=== PATIENT | male | born 1960 | race Caucasian/White ===

== ENCOUNTER 2016-08-30 23:34 | Inpatient (IN) | payer OTHER ==
[~2016-08-30] VITALS: Ht 177.8 cm; Wt 145.0 kg
[~2016-08-30 23:34] MED LIST: ASPI-664 PO; CALC-277 PO; CARV3.1260 PO; CHLO25CA9 PO; FER325 PO; FOLI-49 PO; FURO-110 PO; LOSA50TA6 PO; MULT-762 PO; POTA10TA97 PO; SPIR50TA PO; THIA100T10 PO
[2016-08-31] VITALS (12 sets, daily range): BP systolic 122–144; BP diastolic 61–90; PULSE 68–90; RESP 17–22; BMI 49.5
[2016-08-31] MEDS ORDERED: morphine 4 MG/ML VIAL IV PRN (01:00)
[2016-08-31] MEDS ORDERED: ATOR10TA65 PO (01:41)
[2016-08-31] MEDS ORDERED: METO100T13 PO (01:41)
[2016-08-31] MEDS ORDERED: ONDANSETRON 4 MG INJ IV PRN (02:00)
[2016-08-31] MEDS ORDERED: NACL 0.9% 3 ML SYG IV SCH (02:00)
[2016-08-31] MEDS ORDERED: ALBUTEROL/IPRATROPIUM (NEB) 3 ML AMP HHN PRN (02:00)
[2016-08-31] MEDS: FUROSEMIDE 20 MG TAB PO SCH ×2 (05:41→17:33)
--- NOTE | 2016-08-31 08:34 | HP ---
Date/Time of Note Date/Time of Note DATE: 08/31/16 TIME: 08:20 Assessment/Plan VTE Prophylaxis VTE Prophylaxis Intervention: other (Eliquis) Lines/Catheters IV Catheter Type (from Nrsg): Saline Lock Assessment/Plan Assessment/Plan IMPRESSION 1. Chest Pain: r/o ACS - Cont telemetry monitoring - trend trops - 2D-echo and 12-lead EKG - Will place a cardiology consult - ASA, beta-froilan with PRN nitro and morphine 2. Hx of Decompensated Alcoholic Liver Cirrhosis - cont diuretics 3. Back Pain s/p fall - will obtain xray of spines 4. Morbid Obesity with BMI of 49. - weight reduction advised 5. Alcohol abuse - last drink yesterday (6 beers) - monitor for withdrawal - Librium with PRN Ativan DVT ppx: cont home Eliquis HPI/ROS Admit Date/Time Admit Date/Time Aug 30, 2016 at 23:34 Hx of Present Illness This is a 56-year-old morbidly obese male with BMI of 54, with history of hypertension, decompensated alcoholic cirrhosis, anemia who was transferred from [facility] after he presented there with chest pain. pain is left sided, described as pressure-like with no associated N/V, SOB or diaphoresis. He said he has been taking eliquis for "blood clot in my heart" for the past 6 months. He also said he fell forward 2 days ago "because of my weight". he c/o back pain after the fall. Denied palpitations, lightheadedness. Denied hitting his head. PMH/Family/Social Past Surgical History Past Surgical Hx: no surgical history Social History Smoking Status: Never smoker Exam/Review of Systems Vital Signs Vitals Vital Signs Date Time Temp Pulse Resp B/P Pulse Ox O2 Delivery O2 Flow Rate FiO2 08/31/16 08:12 98.7 92 18 131/79 91 08/31/16 01:28 2.0 08/31/16 00:00 Room Air Intake and Output 08/30/16 08/30/16 08/31/16 15:00 23:00 07:00 Intake Total 200 ml Output Total 2700 ml Balance -2500 ml Exam Constitutional: alert, oriented, other (morbidly Obese) Head: atraumatic, normocephalic Eyes: EOMI, PERRL Respiratory: clear to auscultation, normal air movement Cardiovascular: nl pulses, regular rate and rhythm Gastrointestinal: non-tender, other, soft Extremities: normal pulses Medications Medications Current Medications Morphine Sulfate (morphine) 3 mg Q4H PRN IV PAIN; Start 08/31/16 at 01:00 Ondansetron HCl (Zofran Inj) 4 mg Q6H PRN IV NAUSEA AND/OR VOMITING; Start 02/06 at 02:00 Morphine Sulfate (morphine) 2 mg Q4H PRN IV PAIN LEVEL 7-10; Start 08/31/16 at 02:00 Heparin Sodium (Porcine) (Heparin (5000 Units/0.5 ml)) 5,000 unit Q12 SC ; Start 08/31/16 at 09:00 Aspirin (Halfprin) 81 mg DAILY PO ; Start 08/31/16 at 09:00 Atorvastatin Calcium (Lipitor) 10 mg QHS PO ; Start 08/31/16 at 21:00 Carvedilol (Coreg) 3.125 mg BID PO ; Start 08/31/16 at 09:00 Chlordiazepoxide (Librium) 25 mg TID PO ; Start 08/31/16 at 09:00 Ferrous Sulfate (Ferrous Sulfate (Ec)) 325 mg DAILY PO ; Start 08/31/16 at 09:00 Folic Acid (Folic Acid) 1 mg DAILY PO ; Start 08/31/16 at 09:00 Furosemide (Lasix) 20 mg BID@06,18 PO Last administered on 08/31/16t 05:41; Admin Dose 20 MG; Start 08/31/16 at 06:00 Losartan Potassium (Cozaar) 50 mg BID PO ; Start 08/31/16 at 09:00 Multivitamins Therapeutic (Theragran) 1 tab DAILY PO ; Start 08/31/16 at 09:00 Potassium Chloride (Klor-Con 10) 10 meq DAILY PO ; Start 08/31/16 at 09:00 Spironolactone (Aldactone) 50 mg DAILY PO ; Start 08/31/16 at 09:00 Thiamine HCl (Vitamin B1) 100 mg DAILY PO ; Start 08/31/16 at 09:00 HÉCTOR LOGAN MD Aug 31, 2016 08:32
[2016-08-31] MEDS: MULTIVITAMINS THERAPEUTIC TAB PO SCH (08:37)
[2016-08-31] MEDS: POTASSIUM CHLORIDE (SR) 10 MEQ TAB PO SCH (08:38)
[2016-08-31] MEDS: SPIRONOLACTONE 50 MG TAB PO SCH (08:38)
[2016-08-31] MEDS: LOSARTAN 50 MG TAB PO SCH ×2 (08:38→22:02)
[2016-08-31] MEDS: THIAMINE 100 MG TAB PO SCH (08:38)
[2016-08-31] MEDS: FOLIC ACID 1 MG TAB PO SCH (08:38)
[2016-08-31] MEDS: FERROUS SULFATE (EC) 325 MG TAB PO SCH (08:38)
[2016-08-31] MEDS: ASPIRIN (EC) 81 MG TAB PO SCH (08:38)
[2016-08-31] MEDS: HEPARIN 5,000 UNIT/0.5 ML VIAL SC SCH ×2 (08:39→22:03)
[2016-08-31] MEDS: CHLORDIAZEPOXIDE 25 MG CAP PO SCH ×3 (09:00→22:01)
[2016-08-31 10:08] LABS: ADD SCAN DIFF NO
[2016-08-31 10:12] LABS: ABNORMAL IP MESSAGE 1; BASOPHILS % 0.5 % (0.0-2.0); EOSINOPHILS # 0.1 10^3/ul (0.0-0.5); EOSINOPHILS % 1.5 % (0.0-7.0); HEMATOCRIT 37.8 % (42.0-52.0); HEMOGLOBIN 13.9 g/dl (14.0-18.0); LYMPHOCYTES # 0.6 10^3/ul (0.8-2.9); LYMPHOCYTES % 10.8 % (15.0-51.0); MEAN CORPUSCULAR HEMOGLOBIN 29.9 pg (29.0-33.0); MEAN CORPUSCULAR HGB CONC 36.8 g/dl (32.0-37.0); MEAN CORPUSCULAR VOLUME 81.3 fl (82.0-101.0); MEAN PLATELET VOLUME 9.7 fl (7.4-10.4); MONOCYTE # 0.5 10^3/ul (0.3-0.9); MONOCYTES % 9.7 % (0.0-11.0); NEUTROPHIL # 4.2 10^3/ul (1.6-7.5); NEUTROPHILS % 77.3 % (39.0-77.0); RED BLOOD COUNT 4.65 10^6/ul (4.70-6.10); RED CELL DISTRIBUTION WIDTH 13.2 % (11.5-14.5); WHITE BLOOD COUNT 5.5 10^3/ul (4.8-10.8)
[2016-08-31 10:37] LABS: ALBUMIN 4.6 g/dl (3.3-4.9); ALBUMIN/GLOBULIN RATIO 1.39; BILIRUBIN,INDIRECT 1.8 mg/dl (0-1.1); BILIRUBIN,TOTAL 1.8 mg/dl (0.2-1.3); CALCIUM 8.4 mg/dl (8.4-10.2); CREATININE 0.5 mg/dl (0.61-1.24); MAGNESIUM 1.1 mg/dl (1.7-2.5); POTASSIUM 3.2 mmol/L (3.5-5.1); TOTAL PROTEIN 7.9 g/dl (6.1-8.1)
[2016-08-31 10:48] LABS: TROPONIN-I 0.064 ng/ml (0.00-0.12)
[2016-08-31 10:52] LABS: CK-MB 10.4 ng/ml (0.0-2.4)
--- NOTE | 2016-08-31 11:38 | RADRPT ---
PROCEDURE: XR Chest. CLINICAL INDICATION: Evaluate for pleural effusion. TECHNIQUE: PA and Lateral views of the chest were obtained. COMPARISON: No. FINDINGS: The soft tissues are normal. There are degenerative osteophytes in the thoracic spine. The heart i s enlarged. The cardiomediastinal silhouette and hilar structures are normal. The pulmonary vascula ture is normal. There are vascular calcifications in the aortic arch. No acute infiltrate is identif ied. The costophrenic angles are of the field of view. No pleural effusion is not excluded in this setting. IMPRESSION: 1. Technically limited study has costophrenic angles are excluded from the field of view. A right a nd lateral left lateral decubitus view of the chest or ultrasound of the chest is recommended if a p leural effusion is to be excluded. 2. Cardiomegaly. 3. Atherosclerosis of the aortic arch. 4. Mild elevation of the right diaphragm. 5. Spondylosis of the thoracic spine. RPTAT:AAJJ Physician Tyler Date Time Electronically viewed and signed by Physician Tyler on 08/31/2016 11:38 CHINYERE/
[2016-08-31 11:40] LABS: PLATELET COUNT 67 10^3/UL (140-415)
[2016-08-31 11:41] LABS: PLATELET ESTIMATE PLT APPEAR DECREASED
--- NOTE | 2016-08-31 14:16 | RADRPT ---
Echocardiogram Report Patient Name: ABELARDO ATKINS Gender: Male Date: 1960 Study Date: 31-Aug-2016 Milk Runner: ULISES Location: [place] Height(Cm): 178 Weight(Kg): 157 BSA: 2.78 Ref. Physician: HÉCTOR LOGAN Quality: Technically Difficult Study Procedures: Transthoracic echocardiogram with complete 2D, M-Mode, and doppler examination. Indications: Chest Pain. Shortness of breath. 2D/M Mode Doppler Measurement Value Normal Ranges Measurement Value Normal Ranges LVIDd MM 6.7 cm AV Peak Rohan 1.6 m/sec LVIDs MM 3.3 cm AV Peak PG 10.3 mmHg LVPWd MM 1.1 cm LVOT Peak Rohan 0.9 m/sec IVSd MM 1.1 cm PV Peak Rohan 1.4 m/sec AoR Diam MM 3.9 cm PV Peak PG 7.0 mmHg ACS MM 2.4 cm LA Dimen 2D 5.7 2.3 - 4.0 cm Findings Left Ventricle: Normal left ventricular systolic function. Normal left ventricular wall thickness. Moderate enlargement of left ventricle cavity. Ejection fraction is visually estimated at 55 %. Tissue Doppler/Mitral Doppler indices are indeterminate in this study due to the presence of abnormal rhythm throughout. Right Ventricle: Normal right ventricular size. Normal right ventricular systolic function. Left Atrium: There is severe enlargement of left atrium appreciated best by LA volume indexed of 53 ml/m2. Right Atrium: There is mild enlargement of right atrium. Mitral Valve: Mild mitral valve regurgitation. Aortic Valve: No significant aortic stenosis or insufficiency. Normal trileaflet aortic valve structure. Tricuspid Valve: Normal appearance and function of the tricuspid valve with trace physiologic regurgitation. Pulmonic Valve: Normal pulmonic valve appearance. No evidence of pulmonic regurgitation. Pericardium: Normal pericardium with no significant pericardial effusion. Aorta: There is mild aortic root dilation. Ascending Aorta 4 cm. IVC: Normal size and normal respiratory collapse consistent with normal right atrial pressure. Pulmonary Artery: Normal pulmonary artery size. Conclusions 1.Normal left ventricular systolic function. Normal left ventricular wall thickness. Moderate enlargement of left ventricle cavity. Ejection fraction is visually estimated at 55 %. Tissue Doppler/Mitral Doppler indices are indeterminate in this study due to the presence of abnormal rhythm throughout. 2.There is severe enlargement of left atrium appreciated best by LA volume indexed of 53 ml/m2. 3.There is mild enlargement of right atrium. 4.Mild mitral valve regurgitation. 5.Normal appearance and function of the tricuspid valve with trace physiologic regurgitation. Electronically Signed By: Bernard Bernard 31-Aug-2016 14:16:01 0700 Patient Name: ABELARDO ATKINS Study Date: 31-Aug-2016 [id number]
[2016-08-31 16:45] LABS: TROPONIN-I 0.064 ng/ml (0.00-0.12)
[2016-08-31 16:51] LABS: CK-MB 9.6 ng/ml (0.0-2.4)
[2016-08-31] MEDS: ATORVASTATIN 10 MG TAB PO SCH (22:01)
[2016-09-01] VITALS (12 sets, daily range): BP systolic 104–155; BP diastolic 56–89; PULSE 90–111; RESP 17–20
[2016-09-01] MEDS: FUROSEMIDE 20 MG TAB PO SCH ×2 (05:25→18:12)
[2016-09-01 07:35] LABS: ADD SCAN DIFF NO
[2016-09-01 07:45] LABS: ABNORMAL IP MESSAGE 1; BASOPHILS % 0.4 % (0.0-2.0); EOSINOPHILS # 0.1 10^3/ul (0.0-0.5); EOSINOPHILS % 1.5 % (0.0-7.0); HEMOGLOBIN 14.2 g/dl (14.0-18.0); LYMPHOCYTES # 0.5 10^3/ul (0.8-2.9); LYMPHOCYTES % 11.1 % (15.0-51.0); MEAN CORPUSCULAR HEMOGLOBIN 29.6 pg (29.0-33.0); MEAN CORPUSCULAR HGB CONC 35.5 g/dl (32.0-37.0); MEAN CORPUSCULAR VOLUME 83.5 fl (82.0-101.0); MEAN PLATELET VOLUME 10.3 fl (7.4-10.4); MONOCYTE # 0.6 10^3/ul (0.3-0.9); MONOCYTES % 11.7 % (0.0-11.0); NEUTROPHIL # 3.6 10^3/ul (1.6-7.5); NEUTROPHILS % 75.1 % (39.0-77.0); RED BLOOD COUNT 4.79 10^6/ul (4.70-6.10); RED CELL DISTRIBUTION WIDTH 13.6 % (11.5-14.5); WHITE BLOOD COUNT 4.8 10^3/ul (4.8-10.8)
[2016-09-01 08:25] LABS: CREATININE 0.44 mg/dl (0.61-1.24); MAGNESIUM 1.3 mg/dl (1.7-2.5); PHOSPHORUS 2.8 mg/dl (2.5-4.9)
[2016-09-01 08:34] LABS: POTASSIUM 2.9 mmol/L (3.5-5.1)
[2016-09-01] MEDS ORDERED: POTASSIUM CHLORIDE 250 ML IVPB ONE ×2 (09:00→10:00)
[2016-09-01] MEDS ORDERED: POTASSIUM CHLORIDE (SR) 10 MEQ TAB PO ONE (09:00)
[2016-09-01] MEDS: POTASSIUM CHLORIDE (SR) 10 MEQ TAB PO SCH (09:07)
[2016-09-01] MEDS: SPIRONOLACTONE 50 MG TAB PO SCH (09:07)
[2016-09-01] MEDS: CHLORDIAZEPOXIDE 25 MG CAP PO SCH ×3 (09:07→20:53)
[2016-09-01] MEDS: MULTIVITAMINS THERAPEUTIC TAB PO SCH (09:07)
[2016-09-01] MEDS: ASPIRIN (EC) 81 MG TAB PO SCH (09:07)
[2016-09-01] MEDS: THIAMINE 100 MG TAB PO SCH (09:08)
[2016-09-01] MEDS: FERROUS SULFATE (EC) 325 MG TAB PO SCH (09:08)
[2016-09-01] MEDS: FOLIC ACID 1 MG TAB PO SCH (09:08)
[2016-09-01] MEDS: LOSARTAN 50 MG TAB PO SCH ×2 (09:08→20:53)
[2016-09-01] MEDS: HEPARIN 5,000 UNIT/0.5 ML VIAL SC SCH ×2 (09:14→20:58)
[2016-09-01 09:57] LABS: PLATELET COUNT 51 10^3/UL (140-415)
[2016-09-01 09:58] LABS: PLATELET ESTIMATE PLT APPEAR DECREASED
[2016-09-01] MEDS ORDERED: MAGNESIUM SULFATE 3 GM in SOD CHLORIDE 0.9% 100 ML IVPB ONE (11:00)
[2016-09-01 13:51] LABS: TROPONIN-I 0.062 ng/ml (0.00-0.12)
[2016-09-01 14:01] LABS: CK-MB 5.5 ng/ml (0.0-2.4)
[2016-09-01 14:19] LABS: CHOL/HDL RATIO 1.8 RATIO
--- NOTE | 2016-09-01 15:25 | RADRPT ---
PROCEDURE: XR Chest. CLINICAL INDICATION: Shortness of breath. Evaluate for infiltrates. TECHNIQUE: Chest x-ray, single view. COMPARISON: 08/31/2016. FINDINGS: The cardiac silhouette is magnified and unchanged in size and configuration. Aortic arch atheroscle rotic calcification is observed. Low lung volumes are present. Pulmonary parenchymal evaluation is slightly limited as a result of attenuation from abundant overlapping soft tissue. There is no evid ence of dominant focal pulmonary parenchymal opacification. Skeletal structures and upper abdomen ar e unremarkable. IMPRESSION: Hypoinflation. No evidence of dominant focal pulmonary parenchymal opacification. RPTAT: HLST .Alessandra Palacio MD, MD Date Time Electronically viewed and signed by .Alessandra Palacio MD, MD on 09/01/2016 15:24 .T/
[2016-09-01] MEDS: METHYLPREDNISOLONE 125 MG INJ IV SCH ×2 (16:11→20:52)
--- NOTE | 2016-09-01 16:41 | PN ---
DATE: 09/01/2016 TIME OF EVALUATION: 1:30 p.m. SUBJECTIVE DATA: Denies any chest pain. Complains of dyspnea. OBJECTIVE DATA: VITAL SIGNS: Temperature 98.1, pulse rate 100, respiratory rate 20, blood pressure 104/56, oxygen saturation 98% on low flow O2. GENERAL: This is a morbidly obese male patient lying in bed in mild respiratory distress. HEENT: Head normocephalic and atraumatic. Eyes: Anicteric sclerae. Conjunctivae clear. ENT: Nasal septum is midline. Oral mucosa is dry. NECK: Short with increased neck circumference. RESPIRATORY: Bilaterally diminished breath sounds. Use of accessory muscles of respiration. Bilateral expiratory wheezing. CARDIAC: Irregularly irregular rhythm. S1 and S2 heard. ABDOMEN: Obese. Bowel sounds hypoactive. GENITOURINARY: Deferred. EXTREMITIES: No cyanosis, no clubbing. Bilateral lower extremity 2+ pitting edema. Peripheral pulses are palpable. NEUROLOGIC: The patient is awake, alert and oriented. Cranial nerves are grossly intact. LABORATORY AND DIAGNOSTIC DATA: WBC 4.8, hemoglobin 14.0, hematocrit 40.0, platelet count 51. Sodium 124, potassium 2.9, chloride 104, carbon dioxide 38, anion gap 15, BUN 7, creatinine 0.44, glucose 105, calcium 9.0, phosphorus 2.8, magnesium 1.3. ASSESSMENT AND PLAN: 1. Chest pain. Rule out acute coronary syndrome. Troponins negative so far. The patient's 2D echocardiogram showing ejection fraction of 55%. The patient will be continued on aspirin. Cardiology to follow the patient. 2. Essential hypertension. Continue antihypertensives. Blood pressure fairly well controlled. 3. Chronic obstructive pulmonary disease. The patient was started on inhaled bronchodilators and tapering dose of steroids. Pulmonology consult will be obtained. 4. Acute respiratory failure, most probably a combination of diastolic heart failure as well as underlying chronic obstructive pulmonary disease exacerbation. The patient will be continued on supplemental oxygen. The patient will be started on inhaled bronchodilators. However, Xopenex will be used because of underlying atrial fibrillation. The patient was started on a tapering dose of steroids. 5. Atrial fibrillation. Rate controlled. Unable to anticoagulate because of underlying thrombocytopenia. 6. Alcoholic liver disease. Continue diuretics. Will obtain a serum ammonia level. 7. Thrombocytopenia. Most probably from acute alcoholic liver disease. Monitor for any bleeding. 8. Hyponatremia. The patient's sodium will be increased gradually. 9. Hypokalemia. The patient's potassium will be repleted. The patient's magnesium will also be repleted. 10. Alcohol abuse. The patient's last drink was on the day prior to hospitalization. The patient will be maintained on a daily thiamine. The patient will also be maintained on a tapering dose of Librium. 11. Fluid, electrolytes and nutrition. Low cholesterol diet. 12. Deep venous thrombosis prophylaxis. Subcutaneous heparin. 13. Gastrointestinal prophylaxis. H2 receptor blockers. PLAN: Continue inpatient monitoring. Await cardiology evaluation. We will also start the patient on a tapering dose of steroids. We will replete potassium and magnesium. Case discussed with Dr. Tafoya. TRUDY TAFOYA MD, AM/MATT Conf#: [id number] DID#: [id number] MTDD
[2016-09-01] MEDS ORDERED: MAGNESIUM SULFATE 2 GM/50 ML 50 ML IVPB ONE (17:00)
[2016-09-01] MEDS ORDERED: POTASSIUM CHLORIDE (SR) 20 MEQ TAB PO ONE (20:00)
[2016-09-01] MEDS: ATORVASTATIN 10 MG TAB PO SCH (20:51)
[2016-09-01] MEDS: FAMOTIDINE 20 MG TAB PO SCH (20:53)
[2016-09-01] MEDS: LEVALBUTEROL (NEB) 0.63 MG/3 ML AMP HHN SCH (21:12)
[2016-09-02] VITALS (12 sets, daily range): BP systolic 101–150; BP diastolic 55–95; PULSE 84–106; RESP 18–20
[2016-09-02] MEDS: LEVALBUTEROL (NEB) 0.63 MG/3 ML AMP HHN SCH ×4 (00:47→20:43)
[2016-09-02] MEDS: FUROSEMIDE 20 MG TAB PO SCH ×2 (05:32→17:26)
--- NOTE | 2016-09-02 06:59 | CONS ---
DATE OF ADMISSION: 08/30/2016 DATE OF CONSULTATION: 09/01/2016 REASON FOR CONSULTATION: Chest pain. CHIEF COMPLAINT: Chest pain. HISTORY OF PRESENT ILLNESS: Thank you for this referral. History obtained from the patient, panda cool with the staff and review of the chart. This is a pleasant 56-year-old gentleman with morbid o besity, hypertension, alcoholic liver cirrhosis, anemia, as well as atrial fibrillation who came to emergency room with above complaint. The patient is a poor historian, said that he has had chest pa in, left-sided, focal area on the left side. It comes when he takes a deep breath. The patient said he has had chest pain like this before. He was seen by risk analyst, Dr. Evans, had a stress test d one, it was unremarkable. Patient continues with atrial fibrillation. Heart rate overall has been stable. MEDICATIONS: Reviewed. PAST MEDICAL HISTORY: As above. SOCIAL HISTORY: The patient apparently drinks every day almost. Denies any drug abuse to me. FAMILY HISTORY: No reported coronary artery disease. REVIEW OF SYSTEMS: As above mentioned, also severe lower extremity edema for a long time. PHYSICAL EXAMINATION: VITAL SIGNS: Temperature 98.7, heart rate of 90, blood pressure 144/85, respiration rate of 20. HEENT: Normocephalic, atraumatic. Obese gentleman. Pupils are equal. CARDIOVASCULAR: Irregularly irregular. Systolic murmur. PULMONARY: With no wheezes heard. GASTROINTESTINAL: Obese, soft, nontender. EXTREMITIES: Positive diffuse lower extremity edema. NEUROLOGIC: Awake, alert. PSYCHIATRIC: Appeared to be calm. LABORATORY: Sodium 124, potassium 2.9, BUN of 7, creatinine 0.44, glucose of 105. Troponins have b een negative x3. Cholesterol is 163, LDL of 65. WBC of 8.5, hemoglobin 14.2, platelets of 61. EKG : Atrial fibrillation. Echocardiogram read by Dr. Bernard shows ejection fraction 55%, severe dila oriana left atrium. ASSESSMENT AND PLAN: 1. Chest pain, appeared to be nonanginal. 2. Alcoholic liver disease. 3. Hypertension. 4. Atrial fibrillation. 5. History of alcohol use. 6. History of falls. 7. Severe thrombocytopenia. 8. Electrolyte abnormality. 9. Hypomagnesemia. 10. Hypokalemia. RECOMMENDATIONS: 1. I will continue with the Losartan and Coreg. 2. Potassium and magnesium will be replaced. We will try to get old records from Dr. Evans's offic e including his stress test result. The patient, although in atrial fibrillation and has dilated le ft atrium does not appear to be a good candidate for anticoagulation due to concern about his thromb ocytopenia and more concerning about his fall risk. He said that he fell 2 weeks ago. For now, we will continue to monitor on telemetry. Thank you for this referral. Dictated By: TAL ABREU MD AV/NTS Conf#: [id number] DID#: [id number] CC: TRUDY HILTON REAL ESTATE ASSOCIATE ATTORNEY; HÉCTOR LOGAN MD;*[facility]*
--- NOTE | 2016-09-02 07:07 | PN ---
Date/Time of Note Date/Time of Note DATE: 09/02/16 TIME: 07:07 Assessment/Plan VTE Prophylaxis VTE Prophylaxis Intervention: heparin Lines/Catheters IV Catheter Type (from Rust): Saline Lock Assessment/Plan Chief Complaint/Hosp Course 1. Chest pain. Acute coronary syndrome ruled out. Troponins negative so far. The patient's 2D echocardiogram showing ejection fraction of 55%. The patient will be continued on aspirin. Cardiology following the patient. 2. Essential hypertension. Continue antihypertensives. Blood pressure fairly well controlled. 3. Chronic obstructive pulmonary disease. The patient was started on inhaled bronchodilators and tapering dose of steroids. Pulmonology consult will be obtained. 4. Acute respiratory failure. Acute on chronic. Hypoxic and hypercapnic. Most probably a combination of diastolic heart failure as well as underlying chronic obstructive pulmonary disease exacerbation. The patient will be continued on supplemental oxygen and inhaled bronchodilators. However, Xopenex will be used because of underlying atrial fibrillation. The patient was started on a tapering dose of steroids. 5. Atrial fibrillation. Rate controlled. Unable to anticoagulate because of underlying thrombocytopenia. 6. Alcoholic liver disease. Continue diuretics. The patient will also be started on lactulose because of underlying hyperammonemia. 7. Thrombocytopenia. Most probably from acute alcoholic liver disease. Monitor for any bleeding. 8. Hyponatremia. The patient's sodium will be increased gradually. 9. Alcohol abuse. The patient's last drink was on the day prior to hospitalization. The patient will be maintained on a daily thiamine. The patient will also be maintained on a tapering dose of Librium. 10. Fluid, electrolytes and nutrition. Low cholesterol diet. 11. Deep venous thrombosis prophylaxis. Subcutaneous heparin. Will hold this if there is worsening thrombocytopenia. 12. Gastrointestinal prophylaxis. H2 receptor blockers. PLAN: Continue inpatient monitoring. Replete potassium. Start lactulose because of hyperammonemia. Case discussed with Dr. Tafoya. Problems: Subjective 24 Hr Interval Summary Free Text/Dictation Denies any chest pain. Improving dyspnea. Exam/Review of Systems Vital Signs Vitals Vital Signs Date Time Temp Pulse Resp B/P Pulse Ox O2 Delivery O2 Flow Rate FiO2 09/02/16 04:11 103 09/02/16 04:00 98.8 19 106/60 94 09/02/16 02:36 2.0 09/02/16 00:49 Nasal Cannula Intake and Output 09/01/16 09/01/16 09/02/16 15:00 23:00 07:00 Intake Total 250 ml 850 ml 1200 ml Output Total 2350 ml Balance 250 ml 850 ml -1150 ml Exam GENERAL: This is a morbidly obese male patient lying in bed in mild respiratory distress. HEENT: Head normocephalic and atraumatic. Eyes: Anicteric sclerae. Conjunctivae clear. ENT: Nasal septum is midline. Oral mucosa is dry. NECK: Short with increased neck circumference. RESPIRATORY: Bilaterally diminished breath sounds. No use of accessory muscles of respiration. No expiratory wheezing. CARDIAC: Irregularly irregular rhythm. S1 and S2 heard. ABDOMEN: Obese. Bowel sounds hypoactive. GENITOURINARY: Deferred. EXTREMITIES: No cyanosis, no clubbing. Bilateral lower extremity 2+ pitting edema. Peripheral pulses are palpable. NEUROLOGIC: The patient is awake, alert and oriented. Cranial nerves are grossly intact. Results Result Diagram: 09/01/16 0654 09/01/16 0654 Results 24 hrs Laboratory Tests Test 09/01/16 13:05 09/01/16 13:34 09/01/16 13:55 Creatine Kinase 335 #H Creatine Kinase Index 1.6 Creatinine Kinase MB (Mass) 5.50 H Troponin I 0.062 Hemoglobin A1c 5.4 Triglycerides Level 51 Cholesterol Level 163 LDL Cholesterol, Calculated 65 HDL Cholesterol 88 H Cholesterol/HDL Ratio 1.8 Medications Medications Current Medications Morphine Sulfate (morphine) 3 mg Q4H PRN IV PAIN; Start 08/31/16 at 01:00 Ondansetron HCl (Zofran Inj) 4 mg Q6H PRN IV NAUSEA AND/OR VOMITING; Start 02/06 at 02:00 Morphine Sulfate (morphine) 2 mg Q4H PRN IV PAIN LEVEL 7-10; Start 08/31/16 at 02:00 Heparin Sodium (Porcine) (Heparin (5000 Units/0.5 ml)) 5,000 unit Q12 SC Last administered on 09/01/16 20:58; Admin Dose 5,000 UNIT; Start 08/31/16 at 09:00 Aspirin (Halfprin) 81 mg DAILY PO Last administered on 09/01/16 09:07; Admin Dose 81 MG; Start 08/31/16 at 09:00 Atorvastatin Calcium (Lipitor) 10 mg QHS PO Last administered on 09/01/16 20: 51; Admin Dose 10 MG; Start 08/31/16 at 21:00 Carvedilol (Coreg) 3.125 mg BID PO Last administered on 09/01/16 20:53; Admin Dose 3.125 MG; Start 08/31/16 at 09:00 Chlordiazepoxide (Librium) 25 mg TID PO Last administered on 09/01/16 20:53; Admin Dose 25 MG; Start 08/31/16 at 09:00 Ferrous Sulfate (Ferrous Sulfate (Ec)) 325 mg DAILY PO Last administered on 09:08; Admin Dose 325 MG; Start 08/31/16 at 09:00 Folic Acid (Folic Acid) 1 mg DAILY PO Last administered on 09/01/16 09:08; Admin Dose 1 MG; Start 08/31/16 at 09:00 Furosemide (Lasix) 20 mg BID@ PO Last administered on 09/02/16 05:32; Admin Dose 20 MG; Start 08/31/16 at 06:00 Losartan Potassium (Cozaar) 50 mg BID PO Last administered on 09/01/16 20:53; Admin Dose 50 MG; Start 08/31/16 at 09:00 Multivitamins Therapeutic (Theragran) 1 tab DAILY PO Last administered on 09:07; Admin Dose 1 TAB; Start 08/31/16 at 09:00 Potassium Chloride (Klor-Con 10) 10 meq DAILY PO Last administered on 09:07; Admin Dose 10 MEQ; Start 08/31/16 at 09:00 Spironolactone (Aldactone) 50 mg DAILY PO Last administered on 09/01/16 09:07 ; Admin Dose 50 MG; Start 08/31/16 at 09:00 Thiamine HCl (Vitamin B1) 100 mg DAILY PO Last administered on 09/01/16 09:08 ; Admin Dose 100 MG; Start 08/31/16 at 09:00 Methylprednisolone Sodium Succinate (Solu-Medrol) 60 mg Q12 IV Last administered on 09/01/16 20:52; Admin Dose 60 MG; Start 09/01/16 at 16:00 Famotidine (Pepcid) 20 mg BID PO Last administered on 09/01/16 20:53; Admin Dose 20 MG; Start 09/01/16 at 21:00 TRUDY HILTON NP Sep 02, 2016 07:07
[2016-09-02 08:03] LABS: ADD SCAN DIFF NO
[2016-09-02 08:14] LABS: AADO2 Arterial 31.3 mmHg (7.0-24.0); Arterial Base Excess 7.8 mmol/L (-3.0-3); Arterial COHb 1.4 % (0.0-3.0); Arterial Fraction of Oxyhgb 91.3 % (93.0-99.0); Arterial HCO3 37.5 mmol/L (22.0-26.0); Arterial MetHb 0.3 % (0.0-1.5); Arterial Total Hemglobin 16.1 g/dl (12.0-18.0); MODE NASAL CANNULA
[2016-09-02 08:14] LABS: HEMATOCRIT 42.6 % (42.0-52.0); HEMOGLOBIN 15.1 g/dl (14.0-18.0); MEAN CORPUSCULAR HEMOGLOBIN 29.9 pg (29.0-33.0); MEAN CORPUSCULAR HGB CONC 35.4 g/dl (32.0-37.0); MEAN CORPUSCULAR VOLUME 84.4 fl (82.0-101.0); MEAN PLATELET VOLUME 10.1 fl (7.4-10.4); NEUTROPHILS % 92.8 % (39.0-77.0); RED BLOOD COUNT 5.05 10^6/ul (4.70-6.10); RED CELL DISTRIBUTION WIDTH 13.6 % (11.5-14.5); WHITE BLOOD COUNT 6.2 10^3/ul (4.8-10.8)
[2016-09-02 08:15] LABS: ABNORMAL IP MESSAGE 1; LYMPHOCYTES # 0.3 10^3/ul (0.8-2.9); LYMPHOCYTES % 5.4 % (15.0-51.0); MONOCYTE # 0.1 10^3/ul (0.3-0.9); MONOCYTES % 1.5 % (0.0-11.0); NEUTROPHIL # 5.7 10^3/ul (1.6-7.5)
[2016-09-02] MEDS: CHLORDIAZEPOXIDE 25 MG CAP PO SCH ×3 (08:26→20:39)
[2016-09-02] MEDS: METHYLPREDNISOLONE 125 MG INJ IV SCH (08:26)
[2016-09-02] MEDS: LOSARTAN 50 MG TAB PO SCH ×2 (08:27→20:40)
[2016-09-02] MEDS: MULTIVITAMINS THERAPEUTIC TAB PO SCH (08:27)
[2016-09-02] MEDS: ASPIRIN (EC) 81 MG TAB PO SCH (08:27)
[2016-09-02] MEDS: POTASSIUM CHLORIDE (SR) 10 MEQ TAB PO SCH (08:27)
[2016-09-02] MEDS: FAMOTIDINE 20 MG TAB PO SCH ×2 (08:27→20:39)
[2016-09-02] MEDS: THIAMINE 100 MG TAB PO SCH (08:27)
[2016-09-02] MEDS: FERROUS SULFATE (EC) 325 MG TAB PO SCH (08:27)
[2016-09-02] MEDS: SPIRONOLACTONE 50 MG TAB PO SCH (08:28)
[2016-09-02] MEDS: FOLIC ACID 1 MG TAB PO SCH (08:28)
[2016-09-02 08:33] LABS: PLATELET COUNT 68 10^3/UL (140-415)
[2016-09-02 08:34] LABS: INR 1.16; PROTIME 14.8 Sec (12.2-14.2); PT RATIO 1.2
[2016-09-02 08:35] LABS: PARTIAL THROMBOPLASTIN TIME 28.6 Sec (25.0-35.0)
[2016-09-02] MEDS: HEPARIN 5,000 UNIT/0.5 ML VIAL SC SCH ×2 (08:37→20:44)
[2016-09-02 08:43] LABS: ALBUMIN 4.6 g/dl (3.3-4.9); ALBUMIN/GLOBULIN RATIO 1.21; BILIRUBIN,INDIRECT 1.1 mg/dl (0-1.1); BILIRUBIN,TOTAL 1.1 mg/dl (0.2-1.3); CALCIUM 9.5 mg/dl (8.4-10.2); CREATININE 0.48 mg/dl (0.61-1.24); POTASSIUM 3.3 mmol/L (3.5-5.1); TOTAL PROTEIN 8.4 g/dl (6.1-8.1)
[2016-09-02 09:07] LABS: MAGNESIUM 1.8 mg/dl (1.7-2.5); PHOSPHORUS 4.3 mg/dl (2.5-4.9); TROPONIN-I 0.074 ng/ml (0.00-0.12)
[2016-09-02] MEDS ORDERED: POTASSIUM CHLORIDE (SR) 20 MEQ TAB PO STA (09:57)
--- NOTE | 2016-09-02 12:23 | CONS ---
DATE OF ADMISSION: 08/30/2016 DATE OF CONSULTATION: 09/02/2016 REASON FOR CONSULTATION: Shortness of breath. HISTORY OF PRESENT ILLNESS: This is a moderately obese 56-year-old gentleman originally ad mitted on 08/31/2016 with increasing shortness of breath, orthopnea, PND, recent history of decompen sation of underlying cirrhosis. In addition, he had what seemed like a mechanical fall. Yesterday, he had increasing chest discomfort, mild shortness of breath, but currently denies any fever or chi lls. No chest pain or palpitations. PAST MEDICAL HISTORY: Morbid obesity, underlying cirrhosis, history of anticoagulation for atrial f ibrillation, history of alcoholic liver disease, thrombocytopenia. MEDICATIONS: Per chart. ALLERGIES: NONE. SOCIAL HISTORY: Ex-smoker, no alcohol, no history of drug use. FAMILY HISTORY: Noncontributory. SYSTEMS REVIEW: A 12-point review of systems was negative other than that mentioned above. PHYSICAL EXAMINATION: GENERAL: Chronically ill appearing, morbidly obese gentleman, comfortable at rest, no acute distres s. VITAL SIGNS: Currently afebrile, pulse is 110, blood pressure 135/95, O2 saturation 96% on 2 L nasa l cannula. NECK: Supple. No JVD or lymphadenopathy. CARDIAC: S1, S2, no added sounds or murmurs. CHEST: Diminished air entry bilaterally. ABDOMEN: Soft, nontender. No guarding or rebound. EXTREMITIES: No cyanosis, clubbing. He has edema +2 with venous stasis. NEUROLOGIC: Generalized weakness. LABORATORY DATA: ABG: pH 7.31, pCO2 of 75, PaO2 of 72, hemoglobin of 15.1, white count 6.2. Sodiu m 128, potassium 3.3. IMPRESSION: 1. Chronic obstructive pulmonary disease with recent exacerbation. 2. History of cirrhosis. 3. Morbid obesity. 4. Compensated chronic hypercapnia. 5. Hyponatremia. PLAN: 1. Decrease steroids. 2. Continue bronchodilators. 3. Encourage ambulation. 4. Monitor sodium. When it is stable, the patient can likely be discharged home. Dictated By: YANET DINERO/MATT Conf#: [id number] DID#: [id number]
[2016-09-02] MEDS: LACTULOSE 30ML CUP PO SCH ×2 (13:43→20:38)
[2016-09-02] MEDS ORDERED: MAGNESIUM SULFATE 2 GM/50 ML 50 ML IVPB ONE (18:00)
--- NOTE | 2016-09-02 18:30 | PN ---
DATE: 09/02/2016 CARDIOLOGY FOLLOWUP SUBJECTIVE: Discussed with the staff. Rhythm strip was reviewed. Remains in atrial fibrillation. Heart rate remains stable. Denies any bleeding to me. Complains of cough and complains of bilater al "rib pain from coughing." No bleeding. MEDICATIONS: Reviewed. PHYSICAL EXAMINATION: VITAL SIGNS: Temperature 98, heart rate of 91, blood pressure 101/55, respiration rate 18, saturati ng 91% HEENT: Normocephalic, atraumatic. Obese gentleman in no acute distress. CARDIOVASCULAR: Irregularly irregular. PULMONARY: With no wheezes, mild rhonchi. GASTROINTESTINAL: Obese, soft, nontender. EXTREMITIES: Diffuse lower extremity edema. NEUROLOGIC: Awake and alert. PSYCHIATRIC: Appeared to be calm. LABORATORY: Sodium 128, potassium 3.3, BUN of 7, creatinine 0.48, glucose 149. ASSESSMENT AND PLAN: 1. Nonanginal chest pain. Review of the old stress test done by Dr. Evans, no evidence of ischemi a was seen about a year ago. 2. Alcoholic liver disease. 3. Atrial fibrillation appeared to be chronic. 4. Thrombocytopenia. 5. History of falls in the past. 6. Electrolyte abnormality and hyperkalemia and hypermagnesemia. 7. Chronic obstructive pulmonary disease. RECOMMENDATIONS: Heart rate has remained stable on Coreg. We will continue with the electrolytes i ncluding potassium to be replaced. Magnesium has been replaced. I will give a regular dose of magn esium as well. Follow up with pulmonary recommendations. Not fully anticoagulated due to concern a bout the fall and anemia, alcohol use and thrombocytopenia. Dictated By: TAL VALENTINO/MATT Conf#: [id number] DID#: [id number] CC: TRUDY HILTON AMMONIA STILL OPERATOR;*[facility]*
[2016-09-02] MEDS: ATORVASTATIN 10 MG TAB PO SCH (20:39)
[2016-09-02] MEDS ORDERED: METHYLPREDNISOLONE 40 MG INJ IV SCH (21:00)
[2016-09-03] VITALS (12 sets, daily range): BP systolic 88–139; BP diastolic 47–78; PULSE 81–96; RESP 17–19
[2016-09-03] MEDS: LEVALBUTEROL (NEB) 0.63 MG/3 ML AMP HHN SCH ×4 (01:23→19:45)
[2016-09-03] MEDS: LACTULOSE 30ML CUP PO SCH ×3 (05:53→21:22)
[2016-09-03] MEDS: FUROSEMIDE 20 MG TAB PO SCH ×2 (05:53→17:27)
[2016-09-03 08:13] LABS: ADD SCAN DIFF NO
[2016-09-03] MEDS: SPIRONOLACTONE 50 MG TAB PO SCH (08:19)
[2016-09-03] MEDS: POTASSIUM CHLORIDE (SR) 10 MEQ TAB PO SCH (08:19)
[2016-09-03] MEDS: CHLORDIAZEPOXIDE 25 MG CAP PO SCH ×3 (08:20→21:22)
[2016-09-03] MEDS: MULTIVITAMINS THERAPEUTIC TAB PO SCH (08:20)
[2016-09-03] MEDS: THIAMINE 100 MG TAB PO SCH (08:20)
[2016-09-03] MEDS: ASPIRIN (EC) 81 MG TAB PO SCH (08:20)
[2016-09-03] MEDS: FAMOTIDINE 20 MG TAB PO SCH ×2 (08:20→21:22)
[2016-09-03] MEDS: FOLIC ACID 1 MG TAB PO SCH (08:20)
[2016-09-03] MEDS: LOSARTAN 50 MG TAB PO SCH ×2 (08:20→20:30)
[2016-09-03] MEDS: FERROUS SULFATE (EC) 325 MG TAB PO SCH (08:20)
[2016-09-03] MEDS: HEPARIN 5,000 UNIT/0.5 ML VIAL SC SCH ×2 (08:22→21:26)
[2016-09-03 08:34] LABS: ABNORMAL IP MESSAGE 1; BASOPHILS % 0.1 % (0.0-2.0); EOSINOPHILS % 0.1 % (0.0-7.0); HEMATOCRIT 43.8 % (42.0-52.0); HEMOGLOBIN 15.2 g/dl (14.0-18.0); LYMPHOCYTES # 0.9 10^3/ul (0.8-2.9); LYMPHOCYTES % 6.2 % (15.0-51.0); MEAN CORPUSCULAR HGB CONC 34.7 g/dl (32.0-37.0); MEAN CORPUSCULAR VOLUME 86.4 fl (82.0-101.0); MONOCYTE # 1.2 10^3/ul (0.3-0.9); MONOCYTES % 8.7 % (0.0-11.0); NEUTROPHIL # 11.7 10^3/ul (1.6-7.5); NEUTROPHILS % 84.3 % (39.0-77.0); PLATELET COUNT 96 10^3/UL (140-415); RED BLOOD COUNT 5.07 10^6/ul (4.70-6.10); RED CELL DISTRIBUTION WIDTH 14.2 % (11.5-14.5); WHITE BLOOD COUNT 13.9 10^3/ul (4.8-10.8)
[2016-09-03 08:59] LABS: MAGNESIUM 1.8 mg/dl (1.7-2.5); PHOSPHORUS 4.7 mg/dl (2.5-4.9)
[2016-09-03 09:01] LABS: CALCIUM 9.9 mg/dl (8.4-10.2); CREATININE 0.52 mg/dl (0.61-1.24); POTASSIUM 3.8 mmol/L (3.5-5.1)
[2016-09-03] MEDS ORDERED: DIGOXIN 500 MCG INJ IV ONE (09:30)
--- NOTE | 2016-09-03 10:15 | PN ---
DATE: 09/03/2016 CARDIOLOGY FOLLOWUP SUBJECTIVE: Discussed with the staff. Rhythm strip was reviewed. The patient remains in atrial f ibrillation. Heart rate overall has been stable, but intermittently elevated. No chest pain or pre ssure any more. Still complains of cough and shortness of breath. MEDICATIONS: Reviewed. PHYSICAL EXAMINATION: VITAL SIGNS: Temperature 98, heart rate of 96, blood pressure 125/78, respiratory rate of 19. HEENT: Normocephalic, atraumatic. Morbidly obese gentleman. CARDIOVASCULAR: Irregularly irregular, systolic murmur. PULMONARY: Mild wheezes. GASTROINTESTINAL: Soft, nontender. Obese. EXTREMITIES: Positive lower extremity edema. NEUROLOGIC: Awake, responds appropriately. PSYCHIATRIC: Appears to be calm now. LABORATORY DATA: WBC of 13.9, hemoglobin 15.2, platelets of 96. Sodium 131, potassium 3.8, BUN of 12, creatinine 0.52, glucose 121. Ammonia level is 116. ASSESSMENT AND PLAN: 1. Nonanginal chest pain has resolved now. 2. Hypertension, under good control. 3. Chronic obstructive pulmonary disease. Follow up with Dr. Boo's recommendations. 4. Atrial fibrillation, heart rate controlled. Not anticoagulated due to concern about the fall ri sk, alcohol use and thrombocytopenia. 5. Alcoholic liver disease. 6. Thrombocytopenia. 7. Hyponatremia. 8. Morbid obesity. RECOMMENDATIONS: We will continue with the current cardiac care. I will give a dose of digoxin as well to control the heart rate slightly better. Continue respiratory care. Dictated By: TAL ABREU MD AV/MATT Conf#: [id number] DID#: [id number] CC: YANET BOO MD;*End*
--- NOTE | 2016-09-03 13:03 | PN ---
Date/Time of Note Date/Time of Note DATE: 09/03/16 TIME: 12:59 Assessment/Plan VTE Prophylaxis VTE Prophylaxis Intervention: SCD's Lines/Catheters IV [facility] Saline Lock Assessment/Plan Chief Complaint/Hosp Course Assessment and plan 1. Chest pain. Troponins negative. EF seen on echo at 55%. Continue on ASA. Cardiology follow. 2. Essential hypertension. Continue antihypertensives and adjust as needed 3. History of COPD. Still with some shortness of breath. No obvious wheezing at this time. Director Supplier Quality following. Continue on steroid. Continue bronchodilators. 4. Acute respiratory failure. Likely mixed COPD/CHF. On broncho-dilators. Continue with steroid. Await for clinical improvement 5. Atrial fibrillation. Noted with thrombocytopenia likely secondary to history of alcohol liver disease. Monitor for signs and symptoms of bleed 6. Alcoholic liver disease. Continue on lactulose. Monitor neuro status 7. Hyponatremia. Monitor level. Slowly improving 8. Alcohol abuse. Cessation was advised DVT prophylaxis: Early ambulation SCDs Disposition plan: Noted with unsteady gait. Will get physical therapy to follow. Monitor electrolytes. Hyponatremia slowly improving. Taper off of oxygen. Discharged in medically stable and cleared by consultants Discussed plan of care with Dr. Hoffmann Problems: Subjective 24 Hr Interval Summary Free Text/Dictation Does not report any chest pain at this time. Does have shortness of breath. Seen standing. With unsteady gait Exam/Review of Systems Vital Signs Vitals Vital Signs Date Time Temp Pulse Resp B/P Pulse Ox O2 Delivery O2 Flow Rate FiO2 09/03/16 12:18 96 09/03/16 11:55 98.0 19 91/53 90 09/03/16 08:00 Nasal Cannula 09/03/16 07:26 2.0 Intake and Output 09/02/16 09/02/16 09/03/16 14:59 22:59 06:59 Intake Total 1250 ml 1400 ml Output Total 800 ml 1800 ml Balance 450 ml -400 ml Exam Constitutional: alert, oriented Psych: nl mood/affect Head: normocephalic Respiratory: other (minimally diminished at lung baes) Cardiovascular: other (regular rate) Gastrointestinal: soft Musculoskeletal: No nl gait and stance Extremities: edema (ble) Neurological: nl mental status, nl speech Results Result Diagram: 09/03/16 0727 09/03/16 0722 Results 24 hrs Laboratory Tests Test 09/03/16 07:22 09/03/16 07:27 Sodium Level 131 L Potassium Level 3.8 Chloride Level 83 L Carbon Dioxide Level 39 H Anion Gap 13 Blood Urea Nitrogen 12 Creatinine 0.52 L Glucose Level 121 Calcium Level 9.9 Phosphorus Level 4.7 Magnesium Level 1.8 White Blood Count 13.9 #H Red Blood Count 5.07 Hemoglobin 15.2 Hematocrit 43.8 Mean Corpuscular Volume 86.4 Mean Corpuscular Hemoglobin 30.0 Mean Corpuscular Hemoglobin Concent 34.7 Red Cell Distribution Width 14.2 Platelet Count 96 #L Mean Platelet Volume 10.0 Neutrophils % 84.3 H Lymphocytes % 6.2 L Monocytes % 8.7 Eosinophils % 0.1 Basophils % 0.1 Nucleated Red Blood Cells % 0.0 Neutrophils # 11.7 H Lymphocytes # 0.9 Monocytes # 1.2 H Eosinophils # 0.0 Basophils # 0.0 Nucleated Red Blood Cells # 0.0 Ammonia 116 H Medications Medications Current Medications Morphine Sulfate (morphine) 3 mg Q4H PRN IV PAIN; Start 08/31/16 at 01:00 Ondansetron HCl (Zofran Inj) 4 mg Q6H PRN IV NAUSEA AND/OR VOMITING; Start 02/06 at 02:00 Morphine Sulfate (morphine) 2 mg Q4H PRN IV PAIN LEVEL 7-10; Start 08/31/16 at 02:00 Heparin Sodium (Porcine) (Heparin (5000 Units/0.5 ml)) 5,000 unit Q12 SC Last administered on 09/03/16 08:22; Admin Dose 5,000 UNIT; Start 08/31/16 at 09:00 Aspirin (Halfprin) 81 mg DAILY PO Last administered on 09/03/16 08:20; Admin Dose 81 MG; Start 08/31/16 at 09:00 Atorvastatin Calcium (Lipitor) 10 mg QHS PO Last administered on 09/02/16 20: 39; Admin Dose 10 MG; Start 08/31/16 at 21:00 Carvedilol (Coreg) 3.125 mg BID PO Last administered on 09/03/16 08:21; Admin Dose 3.125 MG; Start 08/31/16 at 09:00 Chlordiazepoxide (Librium) 25 mg TID PO Last administered on 09/03/16 08:20; Admin Dose 25 MG; Start 08/31/16 at 09:00 Ferrous Sulfate (Ferrous Sulfate (Ec)) 325 mg DAILY PO Last administered on 08:20; Admin Dose 325 MG; Start 08/31/16 at 09:00 Folic Acid (Folic Acid) 1 mg DAILY PO Last administered on 09/03/16 08:20; Admin Dose 1 MG; Start 08/31/16 at 09:00 Furosemide (Lasix) 20 mg BID@18 PO Last administered on 09/03/16 05:53; Admin Dose 20 MG; Start 08/31/16 at 06:00 Losartan Potassium (Cozaar) 50 mg BID PO Last administered on 09/03/16 08:20; Admin Dose 50 MG; Start 08/31/16 at 09:00 Multivitamins Therapeutic (Theragran) 1 tab DAILY PO Last administered on 08:20; Admin Dose 1 TAB; Start 08/31/16 at 09:00 Potassium Chloride (Klor-Con 10) 10 meq DAILY PO Last administered on 08:19; Admin Dose 10 MEQ; Start 08/31/16 at 09:00 Spironolactone (Aldactone) 50 mg DAILY PO Last administered on 09/03/16 08:19 ; Admin Dose 50 MG; Start 08/31/16 at 09:00 Thiamine HCl (Vitamin B1) 100 mg DAILY PO Last administered on 09/03/16 08:20 ; Admin Dose 100 MG; Start 08/31/16 at 09:00 Famotidine (Pepcid) 20 mg BID PO Last administered on 09/03/16 08:20; Admin Dose 20 MG; Start 09/01/16 at 21:00 Lactulose (Enulose) 20 gm Q8 PO Last administered on 09/03/16 05:53; Admin Dose 20 GM; Start 09/02/16 at 14:00 MAL BOYKIN Sep 03, 2016 13:03
--- NOTE | 2016-09-03 13:49 | PN ---
DATE: 09/03/2016 SUBJECTIVE: Patient Dipesh states he is breathing better today, less shortness of breath, no ches t pain or palpitations. Troponins remain negative, ejection fraction is preserved on echocardiogram . PHYSICAL EXAMINATION: VITAL SIGNS: Temperature 98, pulse 96, blood pressure 91/53, O2 saturation 90% on 2 L nasal cannula . NECK: Supple. No JVD or lymphadenopathy. CARDIAC: S1, S2, no added sounds or murmurs. CHEST: Diminished air entry both lung bases. ABDOMEN: Soft, nontender, obese. EXTREMITIES: No cyanosis, clubbing, 2+ edema with venous stasis. LABORATORY DATA: White count 13.9, hemoglobin 15.2, platelets of 96. Chemistry: Ammonia level dayron vated at 116. IMPRESSION AND PLAN: 1. Congestive cardiac failure with probable COPD component. 2. Elevated ammonia secondary to underlying alcoholic liver disease. 3. Morbid obesity with underlying probable obstructive sleep apnea. PLAN: 1. Continue bronchodilators. 2. Discontinue steroids. 3. Encourage ambulation. 4. Discharge planning. Dictated By: YANET DINERO/MATT Conf#: [id number] DID#: [id number]
[2016-09-03] MEDS ORDERED: SOD CHLORIDE 0.9% 500 ML IV ONE (21:00)
[2016-09-03] MEDS: ATORVASTATIN 10 MG TAB PO SCH (21:22)
[2016-09-04] VITALS (12 sets, daily range): BP systolic 88–135; BP diastolic 51–69; PULSE 88–110; RESP 17–18
[2016-09-04] MEDS: LEVALBUTEROL (NEB) 0.63 MG/3 ML AMP HHN SCH ×4 (02:15→20:26)
[2016-09-04] MEDS: FUROSEMIDE 20 MG TAB PO SCH ×2 (06:00→17:29)
[2016-09-04] MEDS: LACTULOSE 30ML CUP PO SCH ×2 (06:50→17:29)
[2016-09-04] MEDS: FAMOTIDINE 20 MG TAB PO SCH ×2 (08:21→21:35)
[2016-09-04] MEDS: MULTIVITAMINS THERAPEUTIC TAB PO SCH (08:21)
[2016-09-04] MEDS: THIAMINE 100 MG TAB PO SCH (08:21)
[2016-09-04] MEDS: FOLIC ACID 1 MG TAB PO SCH (08:21)
[2016-09-04] MEDS: SPIRONOLACTONE 50 MG TAB PO SCH (08:21)
[2016-09-04] MEDS: LOSARTAN 50 MG TAB PO SCH ×2 (08:22→21:00)
[2016-09-04] MEDS: FERROUS SULFATE (EC) 325 MG TAB PO SCH (08:22)
[2016-09-04] MEDS: CHLORDIAZEPOXIDE 25 MG CAP PO SCH (08:22)
[2016-09-04] MEDS: POTASSIUM CHLORIDE (SR) 10 MEQ TAB PO SCH (08:22)
[2016-09-04] MEDS: ASPIRIN (EC) 81 MG TAB PO SCH (08:22)
[2016-09-04] MEDS: HEPARIN 5,000 UNIT/0.5 ML VIAL SC SCH ×2 (08:23→21:38)
[2016-09-04 08:27] LABS: ADD SCAN DIFF NO
[2016-09-04 08:41] LABS: ABNORMAL IP MESSAGE 1; BASOPHILS % 0.3 % (0.0-2.0); EOSINOPHILS # 0.3 10^3/ul (0.0-0.5); EOSINOPHILS % 2.7 % (0.0-7.0); HEMATOCRIT 47.8 % (42.0-52.0); LYMPHOCYTES # 1.3 10^3/ul (0.8-2.9); LYMPHOCYTES % 13.8 % (15.0-51.0); MEAN CORPUSCULAR HEMOGLOBIN 29.3 pg (29.0-33.0); MEAN CORPUSCULAR HGB CONC 33.5 g/dl (32.0-37.0); MEAN CORPUSCULAR VOLUME 87.5 fl (82.0-101.0); MEAN PLATELET VOLUME 10.1 fl (7.4-10.4); MONOCYTE # 1.4 10^3/ul (0.3-0.9); MONOCYTES % 14.8 % (0.0-11.0); NEUTROPHIL # 6.6 10^3/ul (1.6-7.5); NEUTROPHILS % 68.1 % (39.0-77.0); PLATELET COUNT 98 10^3/UL (140-415); RED BLOOD COUNT 5.46 10^6/ul (4.70-6.10); RED CELL DISTRIBUTION WIDTH 14.8 % (11.5-14.5); WHITE BLOOD COUNT 9.7 10^3/ul (4.8-10.8)
[2016-09-04 09:04] LABS: MAGNESIUM 1.7 mg/dl (1.7-2.5); PHOSPHORUS 5.5 mg/dl (2.5-4.9)
[2016-09-04 09:12] LABS: CALCIUM 9.7 mg/dl (8.4-10.2); CREATININE 0.65 mg/dl (0.61-1.24); POTASSIUM 3.5 mmol/L (3.5-5.1)
[2016-09-04] MEDS ORDERED: DIGOXIN 500 MCG INJ IV ONE (09:30)
--- NOTE | 2016-09-04 09:44 | PN ---
DATE: 09/04/2016 CARDIOLOGY FOLLOWUP SUBJECTIVE: Discussed with the staff. Rhythm strip was reviewed. The patient remains in atrial fi brillation, heart rate is on the high side. Complains of being fatigued, shortness of breath. No c hest pain or pressure. MEDICATIONS: Reviewed. PHYSICAL EXAMINATION: VITAL SIGNS: Temperature 98, heart rate of 110, blood pressure 135/69, respiratory rate of 22, satu rating 96%. HEENT: Normocephalic, atraumatic. Morbidly obese gentleman. Pupils are equal. CARDIOVASCULAR: Irregularly, irregular. PULMONARY: Diffuse wheezes and rhonchi. GASTROINTESTINAL: Soft, nontender. EXTREMITIES: Positive lower extremity edema. NEUROLOGIC: Awake and alert. LABORATORY DATA: Magnesium is 1.7. WBC 9.7, hemoglobin 16, platelets of 98. ASSESSMENT AND PLAN: 1. Atrial fibrillation. 2. Chest pain has resolved. 3. Chronic obstructive pulmonary disease and wheezing. 4. Alcoholic liver disease. 5. Thrombocytopenia. 6. Morbid obesity. 7. Hyponatremia. 8. Hypomagnesemia. RECOMMENDATIONS: Correct electrolytes including magnesium. The patient has had a stress test done last year, outpatient office Dr. Evans and that did not show any evidence of ischemia. I will disco ntinue his Coreg due to his wheezing and place him instead on Cardizem. Also give digoxin to contro l the heart rate better. Potassium and magnesium to be replaced as needed. Chemistry is pending to day. Magnesium is being monitored, magnesium to be replaced. Pulmonary care as per Dr. Boo and associates. Dictated By: TAL ABREU MD AV/MATT Conf#: [id number] DID#: [id number] CC: YANET BOO MD;*EndCC*
[2016-09-04] MEDS ORDERED: MAGNESIUM SULFATE 2 GM/50 ML 50 ML IVPB ONE (10:00)
[2016-09-04 10:34] LABS: AADO2 Arterial 14.8 mmHg (7.0-24.0); Allen Test ACCEPTAB; Arterial Base Excess 10.1 mmol/L (-3.0-3); Arterial COHb 1.1 % (0.0-3.0); Arterial HCO3 40.1 mmol/L (22.0-26.0); Arterial MetHb 0.2 % (0.0-1.5); Arterial Total Hemglobin 16.8 g/dl (12.0-18.0); MODE ROOM AIR
--- NOTE | 2016-09-04 11:27 | PN ---
DATE: 09/04/2016 SUBJECTIVE: The patient has witnessed apneic episodes of desaturation off supplemental O2. Otherwi se, remains at baseline. PHYSICAL EXAMINATION: VITAL SIGNS: Temperature 98, pulse is 110, blood pressure 135/69, O2 saturation 96% on 3 L nasal ca nnula. NECK: Supple. No JVD or lymphadenopathy. CARDIAC: S1, S2, no added sounds or murmurs. CHEST: Diminished air entry bilaterally. ABDOMEN: Soft, nontender, obese. EXTREMITIES: No cyanosis, clubbing, edema. NEUROLOGIC: Generalized weakness. IMPRESSION AND PLAN: 1. Chronic atrial fibrillation. 2. Chronic obstructive pulmonary disease with acute exacerbation. 3. Acute on chronic hypoxemic respiratory failure. 4. Probable obstructive sleep apnea. The patient will need: 1. Home O2. 2. Cardiac recommendations regarding rate control. 3. ____ anticoagulation. 4. DVT and GI prophylaxis. 5. Outpatient sleep study. Dictated By: YANET DINERO/MATT Conf#: [id number] DID#: [id number]
[2016-09-04] MEDS: DILTIAZEM (CD) 120 MG CAP PO SCH ×2 (11:54→21:36)
--- NOTE | 2016-09-04 12:10 | PN ---
Date/Time of Note Date/Time of Note DATE: 09/04/16 TIME: 12:08 Assessment/Plan VTE Prophylaxis VTE Prophylaxis Intervention: SCD's Lines/Catheters [facility] Saline Lock Assessment/Plan Chief Complaint/Hosp Course 1. Chest pain. Acute coronary syndrome ruled out. Troponins negative so far. The patient's 2D echocardiogram showing ejection fraction of 55%. The patient will be continued on aspirin. Cardiology following the patient. 2. Essential hypertension. Continue antihypertensives. Blood pressure fairly well controlled. 3. Chronic obstructive pulmonary disease. The patient was started on inhaled bronchodilators and tapering dose of steroids. Pulmonology consult will be obtained. 4. Acute respiratory failure. Acute on chronic. Hypoxic and hypercapnic. Most probably a combination of diastolic heart failure as well as underlying chronic obstructive pulmonary disease exacerbation. The patient will be continued on supplemental oxygen and inhaled bronchodilators. However, Xopenex will be used because of underlying atrial fibrillation. The patient was started on a tapering dose of steroids. 5. Atrial fibrillation. Rate controlled. Unable to anticoagulate because of underlying thrombocytopenia. 6. Alcoholic liver disease. Continue diuretics. The patient will also be continued on lactulose because of underlying hyperammonemia. 7. Thrombocytopenia. Most probably from acute alcoholic liver disease. Monitor for any bleeding. 8. Hyponatremia. The patient's sodium will be increased gradually. 9. Alcohol abuse. The patient's last drink was on the day prior to hospitalization. The patient will be maintained on a daily thiamine. The patient will also be maintained on a tapering dose of Librium. 10. Fluid, electrolytes and nutrition. Low cholesterol diet. 11. Deep venous thrombosis prophylaxis. Subcutaneous heparin. Will hold this if there is worsening thrombocytopenia. 12. Gastrointestinal prophylaxis. H2 receptor blockers. PLAN: Continue inpatient monitoring. Increase the frequency of lactulose because of persistent hyperammonemia. Patient needs home O2 upon discharge. Await physical therapy. Case discussed with Dr. Tafoya. Problems: Subjective 24 Hr Interval Summary Free Text/Dictation Patient remains lethargic. Exam/Review of Systems Vital Signs Vitals Vital Signs Date Time Temp Pulse Resp B/P Pulse Ox O2 Delivery O2 Flow Rate FiO2 09/04/16 11:42 97.8 95 18 102/51 92 09/04/16 08:00 Nasal Cannula 09/04/16 07:59 2.0 09/03/16 19:45 21 Intake and Output 09/03/16 09/03/16 09/04/16 15:00 23:00 07:00 Intake Total 1000 ml 320 ml Output Total 1300 ml Balance -300 ml 320 ml Exam GENERAL: This is a morbidly obese male patient lying in bed in mild respiratory distress. HEENT: Head normocephalic and atraumatic. Eyes: Anicteric sclerae. Conjunctivae clear. ENT: Nasal septum is midline. Oral mucosa is dry. NECK: Short with increased neck circumference. RESPIRATORY: Bilaterally diminished breath sounds. No use of accessory muscles of respiration. No expiratory wheezing. CARDIAC: Irregularly irregular rhythm. S1 and S2 heard. ABDOMEN: Obese. Bowel sounds hypoactive. GENITOURINARY: Deferred. EXTREMITIES: No cyanosis, no clubbing. Bilateral lower extremity 2+ pitting edema. Peripheral pulses are palpable. NEUROLOGIC: The patient is lethargic. Oriented 3. Cranial nerves are grossly intact. Results Result Diagram: 09/04/16 0728 09/04/16 0726 Results 24 hrs Laboratory Tests Test 09/04/16 07:26 09/04/16 07:28 09/04/16 09:00 Sodium Level 131 L Potassium Level 3.5 Chloride Level 84 L Carbon Dioxide Level 40 H Anion Gap 11 Blood Urea Nitrogen 18 Creatinine 0.65 Glucose Level 108 Calcium Level 9.7 White Blood Count 9.7 # Red Blood Count 5.46 Hemoglobin 16.0 Hematocrit 47.8 Mean Corpuscular Volume 87.5 Mean Corpuscular Hemoglobin 29.3 Mean Corpuscular Hemoglobin Concent 33.5 Red Cell Distribution Width 14.8 H Platelet Count 98 L Mean Platelet Volume 10.1 Neutrophils % 68.1 Lymphocytes % 13.8 L Monocytes % 14.8 H Eosinophils % 2.7 Basophils % 0.3 Nucleated Red Blood Cells % 0.0 Neutrophils # 6.6 Lymphocytes # 1.3 Monocytes # 1.4 H Eosinophils # 0.3 Basophils # 0.0 Nucleated Red Blood Cells # 0.0 Phosphorus Level 5.5 H Magnesium Level 1.7 Blood Gas Specimen Source Blood arterial Arterial Blood Date Drawn 09/04/2016 10:20:59 AM Arterial Blood pH (Temp corrected) 7.331 L Arterial Blood pCO2 (Temp correct) 77.7 H Arterial Blood pO2 (Temp corrected) 41.9 *L Arterial Blood HCO3 40.1 *H Arterial Blood Base Excess 10.1 H Arterial Blood Oxygen Saturation 74.0 L Dilshad Test ACCEPTAB Arterial Blood Gas Puncture Site Left Radial Arterial Blood Carboxyhemoglobin 1.1 Arterial Blood Methemoglobin 0.2 Blood Gas A-a O2 Differential 14.8 Oxyhemoglobin Percent 73.0 L Total Hemoglobin 16.8 Blood Gas Temperature 37.0 Blood Gas Modality ROOM AIR FiO2 21.0 Blood Gas Critical Value Read Back Earlene MARINA RN Blood Gas Notified Whom JLD Blood Gas Notified Time 09/04/2016 10:31:46 AM Medications Medications Current Medications Morphine Sulfate (morphine) 3 mg Q4H PRN IV PAIN; Start 08/31/16 at 01:00 Ondansetron HCl (Zofran Inj) 4 mg Q6H PRN IV NAUSEA AND/OR VOMITING; Start 02/06 at 02:00 Morphine Sulfate (morphine) 2 mg Q4H PRN IV PAIN LEVEL 7-10; Start 08/31/16 at 02:00 Heparin Sodium (Porcine) (Heparin (5000 Units/0.5 ml)) 5,000 unit Q12 SC Last administered on 09/04/16 08:23; Admin Dose 5,000 UNIT; Start 08/31/16 at 09:00 Aspirin (Halfprin) 81 mg DAILY PO Last administered on 09/04/16 08:22; Admin Dose 81 MG; Start 08/31/16 at 09:00 Atorvastatin Calcium (Lipitor) 10 mg QHS PO Last administered on 09/03/16 21: 22; Admin Dose 10 MG; Start 08/31/16 at 21:00 Chlordiazepoxide (Librium) 25 mg TID PO Last administered on 09/04/16 08:22; Admin Dose 25 MG; Start 08/31/16 at 09:00 Ferrous Sulfate (Ferrous Sulfate (Ec)) 325 mg DAILY PO Last administered on 08:22; Admin Dose 325 MG; Start 08/31/16 at 09:00 Folic Acid (Folic Acid) 1 mg DAILY PO Last administered on 09/04/16 08:21; Admin Dose 1 MG; Start 08/31/16 at 09:00 Furosemide (Lasix) 20 mg BID@18 PO Last administered on 09/03/16 05:53; Admin Dose 20 MG; Start 08/31/16 at 06:00 Losartan Potassium (Cozaar) 50 mg BID PO Last administered on 09/04/16 08:22; Admin Dose 50 MG; Start 08/31/16 at 09:00 Multivitamins Therapeutic (Theragran) 1 tab DAILY PO Last administered on 08:21; Admin Dose 1 TAB; Start 08/31/16 at 09:00 Potassium Chloride (Klor-Con 10) 10 meq DAILY PO Last administered on 08:22; Admin Dose 10 MEQ; Start 08/31/16 at 09:00 Spironolactone (Aldactone) 50 mg DAILY PO Last administered on 09/04/16 08:21 ; Admin Dose 50 MG; Start 08/31/16 at 09:00 Thiamine HCl (Vitamin B1) 100 mg DAILY PO Last administered on 09/04/16 08:21 ; Admin Dose 100 MG; Start 08/31/16 at 09:00 Famotidine (Pepcid) 20 mg BID PO Last administered on 09/04/16 08:21; Admin Dose 20 MG; Start 09/01/16 at 21:00 Lactulose (Enulose) 20 gm Q8 PO Last administered on 09/04/16 06:50; Admin Dose 20 GM; Start 09/02/16 at 14:00 Digoxin (Digoxin) 0.125 mg DAILY@13 PO ; Start 09/05/16 at 13:00 Diltiazem HCl (Cardizem Cd) 120 mg BID PO Last administered on 09/04/16 11:54 ; Admin Dose 120 MG; Start 09/04/16 at 11:00 TRUDY HILTON NP Sep 04, 2016 12:10
[2016-09-04] MEDS: CHLORDIAZEPOXIDE 5 MG CAP PO SCH ×3 (13:00→21:35)
[2016-09-04] MEDS: ATORVASTATIN 10 MG TAB PO SCH (21:36)
[2016-09-05] VITALS (11 sets, daily range): BP systolic 102–123; BP diastolic 57–78; PULSE 66–86; RESP 17–20
[2016-09-05] MEDS: LACTULOSE 30ML CUP PO SCH ×4 (00:25→17:35)
[2016-09-05] MEDS: LEVALBUTEROL (NEB) 0.63 MG/3 ML AMP HHN SCH ×4 (02:12→20:17)
[2016-09-05] MEDS: FUROSEMIDE 20 MG TAB PO SCH ×2 (06:01→17:35)
[2016-09-05 07:42] LABS: ADD SCAN DIFF NO
[2016-09-05 07:49] LABS: ABNORMAL IP MESSAGE 1; BASOPHIL # 0.1 10^3/ul (0.0-0.1); BASOPHILS % 0.6 % (0.0-2.0); EOSINOPHILS # 0.5 10^3/ul (0.0-0.5); EOSINOPHILS % 4.4 % (0.0-7.0); HEMATOCRIT 44.2 % (42.0-52.0); HEMOGLOBIN 15.1 g/dl (14.0-18.0); LYMPHOCYTES # 1.6 10^3/ul (0.8-2.9); LYMPHOCYTES % 14.7 % (15.0-51.0); MEAN CORPUSCULAR HEMOGLOBIN 30.1 pg (29.0-33.0); MEAN CORPUSCULAR HGB CONC 34.2 g/dl (32.0-37.0); MEAN CORPUSCULAR VOLUME 88.2 fl (82.0-101.0); MONOCYTE # 1.5 10^3/ul (0.3-0.9); MONOCYTES % 14.5 % (0.0-11.0); NEUTROPHIL # 6.9 10^3/ul (1.6-7.5); NEUTROPHILS % 65.6 % (39.0-77.0); PLATELET COUNT 103 10^3/UL (140-415); RED BLOOD COUNT 5.01 10^6/ul (4.70-6.10); RED CELL DISTRIBUTION WIDTH 14.9 % (11.5-14.5); WHITE BLOOD COUNT 10.5 10^3/ul (4.8-10.8)
[2016-09-05 08:27] LABS: ALBUMIN/GLOBULIN RATIO 1.24
[2016-09-05 08:34] LABS: POTASSIUM 4.5 mmol/L (3.5-5.1)
[2016-09-05 08:40] LABS: ALBUMIN 4.1 g/dl (3.3-4.9); CALCIUM 9.4 mg/dl (8.4-10.2); CREATININE 0.64 mg/dl (0.61-1.24); MAGNESIUM 1.6 mg/dl (1.7-2.5); TOTAL PROTEIN 7.4 g/dl (6.1-8.1)
[2016-09-05] MEDS: CHLORDIAZEPOXIDE 5 MG CAP PO SCH (08:58)
[2016-09-05] MEDS: THIAMINE 100 MG TAB PO SCH (08:58)
[2016-09-05] MEDS: FOLIC ACID 1 MG TAB PO SCH (08:59)
[2016-09-05] MEDS: ASPIRIN (EC) 81 MG TAB PO SCH (08:59)
[2016-09-05] MEDS: FAMOTIDINE 20 MG TAB PO SCH ×2 (08:59→21:54)
[2016-09-05] MEDS: FERROUS SULFATE (EC) 325 MG TAB PO SCH (08:59)
[2016-09-05] MEDS: LOSARTAN 50 MG TAB PO SCH ×2 (08:59→21:55)
[2016-09-05] MEDS: SPIRONOLACTONE 50 MG TAB PO SCH (08:59)
[2016-09-05] MEDS: MULTIVITAMINS THERAPEUTIC TAB PO SCH (08:59)
[2016-09-05] MEDS: DILTIAZEM (CD) 120 MG CAP PO SCH ×2 (09:02→21:55)
[2016-09-05] MEDS: HEPARIN 5,000 UNIT/0.5 ML VIAL SC SCH ×2 (09:08→21:54)
[2016-09-05] MEDS: POTASSIUM CHLORIDE (SR) 10 MEQ TAB PO SCH (09:09)
--- NOTE | 2016-09-05 11:44 | CONS ---
Date/Time of Note Date/Time of Note DATE: 09/05/16 TIME: 11:42 Assessment/Plan Assessment/Plan Additional Assessment/Plan Assessment recommendations; 1. Patient admitted for hypoxemic and hypercapnic respiratory failure with some clinical improvement. 2. Likely underlying sleep apnea. 3. Morbid obesity. 4. Cirrhosis of liver. Continue current treatment. Continue BiPAP overnight. Consultation Date/Type/Reason Admit Date/Time Aug 30, 2016 at 23:34 Initial Consult Date Type of Consultation: Pulmonary 24 HR Interval Summary Free Text/Dictation Patient condition is slightly improved. According to him shortness of breath is gradually improving. But he still complains of dyspnea on moderate exertion. Denies any wheezing, cough, sputum production fever or chills. General exam; middle-aged male, morbidly obese, currently in no distress. Awake and alert. Exam/Review of Systems Vital Signs Vitals Vital Signs Date Time Temp Pulse Resp B/P Pulse Ox O2 Delivery O2 Flow Rate FiO2 09/05/16 10:57 Nasal Cannula 09/05/16 08:27 98.2 87 20 115/74 98 09/05/16 02:14 3.0 09/05/16 02:14 21 Intake and Output 09/04/16 09/04/16 09/05/16 15:00 23:00 07:00 Intake Total 1300 ml 350 ml Output Total 900 ml 1000 ml Balance 400 ml -650 ml Exam HEENT examination; supple neck, JVD difficult to see because of short neck. Patient has fair dentition. Pharynx is clear. Pupils are midsize and reactive to light. No thyromegaly. Chest examination; diminished breath sound throughout. S1-S2 audible, no murmurs. Regular rhythm. Abdomen examination; grossly protuberant. Nontender. Bowel sounds audible. Extremity exam is; trace peripheral edema. Pulses 1+ bilaterally. No clubbing. EXPENSE ANALYST examination; no focal deficit. Results Result Diagram: 09/05/16 0655 09/05/16 0655 Results 24 hrs Laboratory Tests Test 09/05/16 06:55 White Blood Count 10.5 Red Blood Count 5.01 Hemoglobin 15.1 Hematocrit 44.2 Mean Corpuscular Volume 88.2 Mean Corpuscular Hemoglobin 30.1 Mean Corpuscular Hemoglobin Concent 34.2 Red Cell Distribution Width 14.9 H Platelet Count 103 L Mean Platelet Volume 10.0 Neutrophils % 65.6 Lymphocytes % 14.7 L Monocytes % 14.5 H Eosinophils % 4.4 Basophils % 0.6 Nucleated Red Blood Cells % 0.0 Neutrophils # 6.9 Lymphocytes # 1.6 Monocytes # 1.5 H Eosinophils # 0.5 Basophils # 0.1 Nucleated Red Blood Cells # 0.0 Sodium Level 130 L Potassium Level 4.5 Chloride Level 80 L Carbon Dioxide Level 40 H Anion Gap 15 Blood Urea Nitrogen 18 Creatinine 0.64 Glucose Level 96 Calcium Level 9.4 Magnesium Level 1.6 L Total Bilirubin 1.0 Direct Bilirubin 0.00 Indirect Bilirubin 1.0 Aspartate Amino Transf (AST/SGOT) 57 H Alanine Aminotransferase (ALT/SGPT) 48 Alkaline Phosphatase 91 Ammonia 42 #H Total Protein 7.4 Albumin 4.1 Globulin 3.30 H Albumin/Globulin Ratio 1.24 Digoxin Level < 0.4 L Medications Medications Current Medications Morphine Sulfate (morphine) 3 mg Q4H PRN IV PAIN; Start 08/31/16 at 01:00 Ondansetron HCl (Zofran Inj) 4 mg Q6H PRN IV NAUSEA AND/OR VOMITING; Start 02/06 at 02:00 Morphine Sulfate (morphine) 2 mg Q4H PRN IV PAIN LEVEL 7-10; Start 08/31/16 at 02:00 Heparin Sodium (Porcine) (Heparin (5000 Units/0.5 ml)) 5,000 unit Q12 SC Last administered on 09/05/16 09:08; Admin Dose 5,000 UNIT; Start 08/31/16 at 09:00 Aspirin (Halfprin) 81 mg DAILY PO Last administered on 09/05/16 08:59; Admin Dose 81 MG; Start 08/31/16 at 09:00 Atorvastatin Calcium (Lipitor) 10 mg QHS PO Last administered on 09/04/16 21: 36; Admin Dose 10 MG; Start 08/31/16 at 21:00 Ferrous Sulfate (Ferrous Sulfate (Ec)) 325 mg DAILY PO Last administered on 08:59; Admin Dose 325 MG; Start 08/31/16 at 09:00 Folic Acid (Folic Acid) 1 mg DAILY PO Last administered on 09/05/16 08:59; Admin Dose 1 MG; Start 08/31/16 at 09:00 Furosemide (Lasix) 20 mg BID@06,18 PO Last administered on 09/05/16 06:01; Admin Dose 20 MG; Start 08/31/16 at 06:00 Losartan Potassium (Cozaar) 50 mg BID PO Last administered on 09/05/16 08:59; Admin Dose 50 MG; Start 08/31/16 at 09:00 Multivitamins Therapeutic (Theragran) 1 tab DAILY PO Last administered on 08:59; Admin Dose 1 TAB; Start 08/31/16 at 09:00 Potassium Chloride (Klor-Con 10) 10 meq DAILY PO Last administered on 09:09; Admin Dose 10 MEQ; Start 08/31/16 at 09:00 Spironolactone (Aldactone) 50 mg DAILY PO Last administered on 09/05/16 08:59 ; Admin Dose 50 MG; Start 08/31/16 at 09:00 Thiamine HCl (Vitamin B1) 100 mg DAILY PO Last administered on 09/05/16 08:58 ; Admin Dose 100 MG; Start 08/31/16 at 09:00 Famotidine (Pepcid) 20 mg BID PO Last administered on 09/05/16 08:59; Admin Dose 20 MG; Start 09/01/16 at 21:00 Digoxin (Digoxin) 0.125 mg DAILY@13 PO ; Start 09/05/16 at 13:00 Diltiazem HCl (Cardizem Cd) 120 mg BID PO Last administered on 09/05/16 09:02 ; Admin Dose 120 MG; Start 09/04/16 at 11:00 Chlordiazepoxide (Librium) 10 mg TID PO Last administered on 09/05/16 08:58; Admin Dose 10 MG; Start 09/04/16 at 13:00 Lactulose (Enulose) 20 gm Q6 PO Last administered on 09/05/16 06:00; Admin Dose 20 GM; Start 09/04/16 at 18:00 ABIMAEL ZAIDI Sep 05, 2016 11:44
--- NOTE | 2016-09-05 11:45 | PN ---
Date/Time of Note Date/Time of Note DATE: 09/05/16 TIME: 11:43 Assessment/Plan VTE Prophylaxis VTE Prophylaxis Intervention: heparin Lines/Catheters IV [facility]from [facility] Urinary Cath still in place: No Assessment/Plan Chief Complaint/Hosp Course 1. Chest pain. Acute coronary syndrome ruled out. Troponins negative so far. The patient's 2D echocardiogram showing ejection fraction of 55%. The patient will be continued on aspirin. Cardiology following the patient. 2. Essential hypertension. Continue antihypertensives. Blood pressure fairly well controlled. 3. Chronic obstructive pulmonary disease. The patient was started on inhaled bronchodilators and tapering dose of steroids. Pulmonology consult will be obtained. 4. Acute respiratory failure. Acute on chronic. Hypoxic and hypercapnic. Most probably a combination of diastolic heart failure as well as underlying chronic obstructive pulmonary disease exacerbation. The patient will be continued on supplemental oxygen and inhaled bronchodilators. However, Xopenex will be used because of underlying atrial fibrillation. The patient was started on a tapering dose of steroids. 5. Atrial fibrillation. Rate controlled. Unable to anticoagulate because of underlying thrombocytopenia. 6. Alcoholic liver disease. Continue diuretics. The patient will also be continued on lactulose because of underlying hyperammonemia. 7. Thrombocytopenia. Most probably from acute alcoholic liver disease. Monitor for any bleeding. 8. Hyponatremia. The patient's sodium will be increased gradually. 9. Alcohol abuse. The patient's last drink was on the day prior to hospitalization. The patient will be maintained on a daily thiamine. The patient will also be maintained on a tapering dose of Librium. 10. Fluid, electrolytes and nutrition. Low cholesterol diet. 11. Deep venous thrombosis prophylaxis. Subcutaneous heparin. Will hold this if there is worsening thrombocytopenia. 12. Gastrointestinal prophylaxis. H2 receptor blockers. PLAN: Continue inpatient monitoring. Replete magnesium. Patient needs home O2 upon discharge. Await physical therapy. Taper down Librium. Case discussed with Dr. Tafoya. Problems: Subjective 24 Hr Interval Summary Free Text/Dictation The patient remains somnolent. Denies any chest pain or dyspnea. Exam/Review of Systems Vital Signs Vitals Vital Signs Date Time Temp Pulse Resp B/P Pulse Ox O2 Delivery O2 Flow Rate FiO2 09/05/16 10:57 Nasal Cannula 09/05/16 08:27 98.2 87 20 115/74 98 09/05/16 02:14 3.0 09/05/16 02:14 21 Intake and Output 09/04/16 09/04/16 09/05/16 15:00 23:00 07:00 Intake Total 1300 ml 350 ml Output Total 900 ml 1000 ml Balance 400 ml -650 ml Exam GENERAL: This is a morbidly obese male patient lying in bed in mild respiratory distress. HEENT: Head normocephalic and atraumatic. Eyes: Anicteric sclerae. Conjunctivae clear. ENT: Nasal septum is midline. Oral mucosa is dry. NECK: Short with increased neck circumference. RESPIRATORY: Bilaterally diminished breath sounds. No use of accessory muscles of respiration. No expiratory wheezing. CARDIAC: Irregularly irregular rhythm. S1 and S2 heard. ABDOMEN: Obese. Bowel sounds hypoactive. GENITOURINARY: Deferred. EXTREMITIES: No cyanosis, no clubbing. Bilateral lower extremity 2+ pitting edema. Peripheral pulses are palpable. NEUROLOGIC: The patient is lethargic. Oriented 3. Cranial nerves are grossly intact. Results Result Diagram: 09/05/16 0655 09/05/16 0655 Results 24 hrs Laboratory Tests Test 09/05/16 06:55 White Blood Count 10.5 Red Blood Count 5.01 Hemoglobin 15.1 Hematocrit 44.2 Mean Corpuscular Volume 88.2 Mean Corpuscular Hemoglobin 30.1 Mean Corpuscular Hemoglobin Concent 34.2 Red Cell Distribution Width 14.9 H Platelet Count 103 L Mean Platelet Volume 10.0 Neutrophils % 65.6 Lymphocytes % 14.7 L Monocytes % 14.5 H Eosinophils % 4.4 Basophils % 0.6 Nucleated Red Blood Cells % 0.0 Neutrophils # 6.9 Lymphocytes # 1.6 Monocytes # 1.5 H Eosinophils # 0.5 Basophils # 0.1 Nucleated Red Blood Cells # 0.0 Sodium Level 130 L Potassium Level 4.5 Chloride Level 80 L Carbon Dioxide Level 40 H Anion Gap 15 Blood Urea Nitrogen 18 Creatinine 0.64 Glucose Level 96 Calcium Level 9.4 Magnesium Level 1.6 L Total Bilirubin 1.0 Direct Bilirubin 0.00 Indirect Bilirubin 1.0 Aspartate Amino Transf (AST/SGOT) 57 H Alanine Aminotransferase (ALT/SGPT) 48 Alkaline Phosphatase 91 Ammonia 42 #H Total Protein 7.4 Albumin 4.1 Globulin 3.30 H Albumin/Globulin Ratio 1.24 Digoxin Level < 0.4 L Medications Medications Current Medications Morphine Sulfate (morphine) 3 mg Q4H PRN IV PAIN; Start 08/31/16 at 01:00 Ondansetron HCl (Zofran Inj) 4 mg Q6H PRN IV NAUSEA AND/OR VOMITING; Start 02/06 at 02:00 Morphine Sulfate (morphine) 2 mg Q4H PRN IV PAIN LEVEL 7-10; Start 08/31/16 at 02:00 Heparin Sodium (Porcine) (Heparin (5000 Units/0.5 ml)) 5,000 unit Q12 SC Last administered on 09/05/16 09:08; Admin Dose 5,000 UNIT; Start 08/31/16 at 09:00 Aspirin (Halfprin) 81 mg DAILY PO Last administered on 09/05/16 08:59; Admin Dose 81 MG; Start 08/31/16 at 09:00 Atorvastatin Calcium (Lipitor) 10 mg QHS PO Last administered on 09/04/16 21: 36; Admin Dose 10 MG; Start 08/31/16 at 21:00 Ferrous Sulfate (Ferrous Sulfate (Ec)) 325 mg DAILY PO Last administered on 08:59; Admin Dose 325 MG; Start 08/31/16 at 09:00 Folic Acid (Folic Acid) 1 mg DAILY PO Last administered on 09/05/16 08:59; Admin Dose 1 MG; Start 08/31/16 at 09:00 Furosemide (Lasix) 20 mg BID@06,18 PO Last administered on 09/05/16 06:01; Admin Dose 20 MG; Start 08/31/16 at 06:00 Losartan Potassium (Cozaar) 50 mg BID PO Last administered on 09/05/16 08:59; Admin Dose 50 MG; Start 08/31/16 at 09:00 Multivitamins Therapeutic (Theragran) 1 tab DAILY PO Last administered on 08:59; Admin Dose 1 TAB; Start 08/31/16 at 09:00 Potassium Chloride (Klor-Con 10) 10 meq DAILY PO Last administered on 09:09; Admin Dose 10 MEQ; Start 08/31/16 at 09:00 Spironolactone (Aldactone) 50 mg DAILY PO Last administered on 09/05/16 08:59 ; Admin Dose 50 MG; Start 6/11/17 at 09:00 Thiamine HCl (Vitamin B1) 100 mg DAILY PO Last administered on 09/05/16 08:58 ; Admin Dose 100 MG; Start 08/31/16 at 09:00 Famotidine (Pepcid) 20 mg BID PO Last administered on 09/05/16 08:59; Admin Dose 20 MG; Start 09/01/16 at 21:00 Digoxin (Digoxin) 0.125 mg DAILY@13 PO ; Start 09/05/16 at 13:00 Diltiazem HCl (Cardizem Cd) 120 mg BID PO Last administered on 09/05/16 09:02 ; Admin Dose 120 MG; Start 09/04/16 at 11:00 Chlordiazepoxide (Librium) 10 mg TID PO Last administered on 09/05/16 08:58; Admin Dose 10 MG; Start 09/04/16 at 13:00 Lactulose (Enulose) 20 gm Q6 PO Last administered on 09/05/16 06:00; Admin Dose 20 GM; Start 09/04/16 at 18:00 TRUDY HILTON NP Sep 05, 2016 11:45
[2016-09-05] MEDS ORDERED: MAGNESIUM SULFATE 2 GM/50 ML 50 ML IVPB ONE (12:00)
[2016-09-05] MEDS: DIGOXIN 0.125 MG TAB PO SCH (12:08)
[2016-09-05] MEDS: ATORVASTATIN 10 MG TAB PO SCH (21:54)
[2016-09-06] VITALS (13 sets, daily range): BP systolic 96–155; BP diastolic 52–79; PULSE 65–92; RESP 16–20
[2016-09-06] MEDS: LACTULOSE 30ML CUP PO SCH ×4 (00:59→17:44)
[2016-09-06] MEDS: LEVALBUTEROL (NEB) 0.63 MG/3 ML AMP HHN SCH ×4 (01:34→19:29)
[2016-09-06] MEDS: FUROSEMIDE 20 MG TAB PO SCH ×3 (06:03→21:18)
[2016-09-06 08:03] LABS: ADD SCAN DIFF NO
[2016-09-06 08:13] LABS: ABNORMAL IP MESSAGE 1; BASOPHIL # 0.1 10^3/ul (0.0-0.1); BASOPHILS % 0.5 % (0.0-2.0); EOSINOPHILS # 0.4 10^3/ul (0.0-0.5); HEMATOCRIT 42.9 % (42.0-52.0); HEMOGLOBIN 14.5 g/dl (14.0-18.0); LYMPHOCYTES # 1.4 10^3/ul (0.8-2.9); LYMPHOCYTES % 15.1 % (15.0-51.0); MEAN CORPUSCULAR HEMOGLOBIN 29.8 pg (29.0-33.0); MEAN CORPUSCULAR HGB CONC 33.8 g/dl (32.0-37.0); MEAN CORPUSCULAR VOLUME 88.1 fl (82.0-101.0); MEAN PLATELET VOLUME 9.8 fl (7.4-10.4); MONOCYTE # 1.3 10^3/ul (0.3-0.9); MONOCYTES % 13.9 % (0.0-11.0); NEUTROPHIL # 6.2 10^3/ul (1.6-7.5); NEUTROPHILS % 66.2 % (39.0-77.0); PLATELET COUNT 95 10^3/UL (140-415); RED BLOOD COUNT 4.87 10^6/ul (4.70-6.10); RED CELL DISTRIBUTION WIDTH 14.6 % (11.5-14.5); WHITE BLOOD COUNT 9.4 10^3/ul (4.8-10.8)
[2016-09-06] MEDS: THIAMINE 100 MG TAB PO SCH (08:21)
[2016-09-06] MEDS: SPIRONOLACTONE 50 MG TAB PO SCH (08:23)
[2016-09-06] MEDS: FOLIC ACID 1 MG TAB PO SCH (08:27)
[2016-09-06] MEDS: MULTIVITAMINS THERAPEUTIC TAB PO SCH (08:27)
[2016-09-06] MEDS: ASPIRIN (EC) 81 MG TAB PO SCH (08:29)
[2016-09-06 08:33] LABS: ALBUMIN 4.1 g/dl (3.3-4.9); ALBUMIN/GLOBULIN RATIO 1.32; BILIRUBIN,INDIRECT 1.2 mg/dl (0-1.1); BILIRUBIN,TOTAL 1.2 mg/dl (0.2-1.3); CALCIUM 9.2 mg/dl (8.4-10.2); CREATININE 0.57 mg/dl (0.61-1.24); POTASSIUM 3.8 mmol/L (3.5-5.1); TOTAL PROTEIN 7.2 g/dl (6.1-8.1)
[2016-09-06 08:39] LABS: MAGNESIUM 1.7 mg/dl (1.7-2.5); PHOSPHORUS 3.9 mg/dl (2.5-4.9)
[2016-09-06] MEDS: HEPARIN 5,000 UNIT/0.5 ML VIAL SC SCH ×2 (08:39→21:29)
[2016-09-06] MEDS: LOSARTAN 50 MG TAB PO SCH ×2 (09:00→21:19)
[2016-09-06] MEDS: DILTIAZEM (CD) 120 MG CAP PO SCH ×2 (09:00→21:19)
[2016-09-06] MEDS: FERROUS SULFATE (EC) 325 MG TAB PO SCH (09:59)
[2016-09-06] MEDS: FAMOTIDINE 20 MG TAB PO SCH ×2 (09:59→21:18)
[2016-09-06] MEDS: POTASSIUM CHLORIDE (SR) 10 MEQ TAB PO SCH (09:59)
[2016-09-06] MEDS: DIGOXIN 0.125 MG TAB PO SCH (12:38)
--- NOTE | 2016-09-06 14:05 | PN ---
Date/Time of Note Date/Time of Note DATE: 09/06/16 TIME: 14:00 Assessment/Plan VTE Prophylaxis VTE Prophylaxis Intervention: heparin Lines/Catheters IV [facility]from [facility]): Saline Lock Urinary Cath still in place: No Assessment/Plan Chief Complaint/Hosp Course 1. Chest pain. Acute coronary syndrome ruled out. Troponins negative so far. The patient's 2D echocardiogram showing ejection fraction of 55%. The patient will be continued on aspirin. Cardiology following the patient. 2. Essential hypertension. Continue antihypertensives. Blood pressure fairly well controlled. 3. Chronic obstructive pulmonary disease. The patient on inhaled bronchodilators and tapering dose of steroids. Pulmonology following. 4. Acute respiratory failure. Acute on chronic. Hypoxic and hypercapnic. Most probably a combination of diastolic heart failure as well as underlying chronic obstructive pulmonary disease exacerbation. The patient will be continued on supplemental oxygen and inhaled bronchodilators. However, Xopenex will be used because of underlying atrial fibrillation. 5. Atrial fibrillation. Rate controlled. Unable to anticoagulate because of underlying thrombocytopenia. 6. Alcoholic liver disease. Continue diuretics. The patient will also be continued on lactulose because of underlying hyperammonemia. 7. Thrombocytopenia. Most probably from acute alcoholic liver disease. Monitor for any bleeding. 8. Hyponatremia. The patient's sodium will be increased gradually. Worsening. Will start fluid restriction. 9. Alcohol abuse. The patient's last drink was on the day prior to hospitalization. The patient will be maintained on a daily thiamine. Status post Librium taper. 10. Fluid, electrolytes and nutrition. Low cholesterol, low-salt diet. 11. Deep venous thrombosis prophylaxis. Subcutaneous heparin. Will hold this if there is worsening thrombocytopenia. 12. Gastrointestinal prophylaxis. H2 receptor blockers. PLAN: Continue inpatient monitoring. Patient needs home O2 upon discharge. Continue physical therapy. Fluid restriction because of worsening serum sodium. Case discussed with Dr. Tafoya. Problems: Subjective 24 Hr Interval Summary Free Text/Dictation The patient remains lethargic. Taking off supplemental oxygen in between. Exam/Review of Systems Vital Signs Vitals Vital Signs Date Time Temp Pulse Resp B/P Pulse Ox O2 Delivery O2 Flow Rate FiO2 09/06/16 12:22 98.0 75 18 125/61 90 09/06/16 10:22 Nasal Cannula 09/06/16 07:36 3.0 09/05/16 02:14 21 Intake and Output 09/05/16 09/05/16 09/06/16 15:00 23:00 07:00 Intake Total 900 ml 800 ml Output Total 300 ml 500 ml Balance 600 ml 300 ml Exam GENERAL: This is a morbidly obese male patient lying in bed in mild respiratory distress. HEENT: Head normocephalic and atraumatic. Eyes: Anicteric sclerae. Conjunctivae clear. ENT: Nasal septum is midline. Oral mucosa is dry. NECK: Short with increased neck circumference. RESPIRATORY: Bilaterally diminished breath sounds. No use of accessory muscles of respiration. No expiratory wheezing. CARDIAC: Irregularly irregular rhythm. S1 and S2 heard. ABDOMEN: Obese. Bowel sounds hypoactive. GENITOURINARY: Deferred. EXTREMITIES: No cyanosis, no clubbing. Bilateral lower extremity 2+ pitting edema. Peripheral pulses are palpable. NEUROLOGIC: The patient is lethargic. Oriented 3. Cranial nerves are grossly intact. Results Result Diagram: 09/06/16 0735 09/06/16 0735 Results 24 hrs Laboratory Tests Test 09/06/16 07:35 White Blood Count 9.4 Red Blood Count 4.87 Hemoglobin 14.5 Hematocrit 42.9 Mean Corpuscular Volume 88.1 Mean Corpuscular Hemoglobin 29.8 Mean Corpuscular Hemoglobin Concent 33.8 Red Cell Distribution Width 14.6 H Platelet Count 95 L Mean Platelet Volume 9.8 Neutrophils % 66.2 Lymphocytes % 15.1 Monocytes % 13.9 H Eosinophils % 4.0 Basophils % 0.5 Nucleated Red Blood Cells % 0.0 Neutrophils # 6.2 Lymphocytes # 1.4 Monocytes # 1.3 H Eosinophils # 0.4 Basophils # 0.1 Nucleated Red Blood Cells # 0.0 Sodium Level 125 L Potassium Level 3.8 Chloride Level 80 L Carbon Dioxide Level 41 *H Anion Gap 9 # Blood Urea Nitrogen 16 Creatinine 0.57 L Glucose Level 116 Calcium Level 9.2 Phosphorus Level 3.9 Magnesium Level 1.7 Total Bilirubin 1.2 Direct Bilirubin 0.00 Indirect Bilirubin 1.2 H Aspartate Amino Transf (AST/SGOT) 42 Alanine Aminotransferase (ALT/SGPT) 50 Alkaline Phosphatase 99 Ammonia 41 H Total Protein 7.2 Albumin 4.1 Globulin 3.10 Albumin/Globulin Ratio 1.32 Medications Medications Current Medications Morphine Sulfate (morphine) 3 mg Q4H PRN IV PAIN; Start 08/31/16 at 01:00 Ondansetron HCl (Zofran Inj) 4 mg Q6H PRN IV NAUSEA AND/OR VOMITING; Start 02/06 at 02:00 Morphine Sulfate (morphine) 2 mg Q4H PRN IV PAIN LEVEL 7-10; Start 08/31/16 at 02:00 Heparin Sodium (Porcine) (Heparin (5000 Units/0.5 ml)) 5,000 unit Q12 SC Last administered on 09/06/16 08:39; Admin Dose 5,000 UNIT; Start 08/31/16 at 09:00 Aspirin (Halfprin) 81 mg DAILY PO Last administered on 09/06/16 08:29; Admin Dose 81 MG; Start 08/31/16 at 09:00 Atorvastatin Calcium (Lipitor) 10 mg QHS PO Last administered on 09/05/16 21: 54; Admin Dose 10 MG; Start 08/31/16 at 21:00 Ferrous Sulfate (Ferrous Sulfate (Ec)) 325 mg DAILY PO Last administered on 09:59; Admin Dose 325 MG; Start 08/31/16 at 09:00 Folic Acid (Folic Acid) 1 mg DAILY PO Last administered on 09/06/16 08:27; Admin Dose 1 MG; Start 08/31/16 at 09:00 Furosemide (Lasix) 20 mg BID@,18 PO Last administered on 09/06/16 06:03; Admin Dose 20 MG; Start 08/31/16 at 06:00 Losartan Potassium (Cozaar) 50 mg BID PO Last administered on 09/05/16 21:55; Admin Dose 50 MG; Start 08/31/16 at 09:00 Multivitamins Therapeutic (Theragran) 1 tab DAILY PO Last administered on 08:27; Admin Dose 1 TAB; Start 08/31/16 at 09:00 Potassium Chloride (Klor-Con 10) 10 meq DAILY PO Last administered on 09:59; Admin Dose 10 MEQ; Start 08/31/16 at 09:00 Spironolactone (Aldactone) 50 mg DAILY PO Last administered on 09/06/16 08:23 ; Admin Dose 50 MG; Start 08/31/16 at 09:00 Thiamine HCl (Vitamin B1) 100 mg DAILY PO Last administered on 6/17/17at 08:21 ; Admin Dose 100 MG; Start 08/31/16 at 09:00 Famotidine (Pepcid) 20 mg BID PO Last administered on 09/06/16 09:59; Admin Dose 20 MG; Start 09/01/16 at 21:00 Digoxin (Digoxin) 0.125 mg DAILY@13 PO Last administered on 09/06/16 12:38; Admin Dose 0.125 MG; Start 09/05/16 at 13:00 Diltiazem HCl (Cardizem Cd) 120 mg BID PO Last administered on 09/05/16 21:55 ; Admin Dose 120 MG; Start 09/04/16 at 11:00 Lactulose (Enulose) 20 gm Q6 PO Last administered on 09/06/16 11:58; Admin Dose 20 GM; Start 09/04/16 at 18:00 TRUDY HILTON NP Sep 06, 2016 14:05
[2016-09-06] MEDS: ATORVASTATIN 10 MG TAB PO SCH (21:19)
[2016-09-07] VITALS (58 sets, daily range): BP systolic 53–171; BP diastolic 33–113; PULSE 60–102; RESP 9–28
[2016-09-07] MEDS: LACTULOSE 30ML CUP PO SCH ×2 (00:53→06:25)
[2016-09-07] MEDS: LEVALBUTEROL (NEB) 0.63 MG/3 ML AMP HHN SCH ×2 (01:02→08:12)
[2016-09-07] MEDS: FUROSEMIDE 20 MG TAB PO SCH (06:25)
[2016-09-07] MEDS ORDERED: ETOMIDATE 20 MG INJ ONE (07:00)
[2016-09-07] MEDS ORDERED: SUCCINYLCHOLINE CHLORIDE 100 MG/5 ML SYG IV ONE (07:00)
[2016-09-07 07:27] LABS: ADD SCAN DIFF NO
[2016-09-07 07:32] LABS: ABNORMAL IP MESSAGE 1; BASOPHILS % 0.2 % (0.0-2.0); EOSINOPHILS # 0.2 10^3/ul (0.0-0.5); EOSINOPHILS % 1.8 % (0.0-7.0); HEMOGLOBIN 14.6 g/dl (14.0-18.0); LYMPHOCYTES # 1.2 10^3/ul (0.8-2.9); LYMPHOCYTES % 9.7 % (15.0-51.0); MEAN CORPUSCULAR HEMOGLOBIN 29.8 pg (29.0-33.0); MEAN CORPUSCULAR HGB CONC 33.2 g/dl (32.0-37.0); MEAN CORPUSCULAR VOLUME 89.8 fl (82.0-101.0); MEAN PLATELET VOLUME 10.1 fl (7.4-10.4); MONOCYTE # 1.8 10^3/ul (0.3-0.9); MONOCYTES % 14.8 % (0.0-11.0); NEUTROPHIL # 8.9 10^3/ul (1.6-7.5); NEUTROPHILS % 73.3 % (39.0-77.0); PLATELET COUNT 95 10^3/UL (140-415); RED CELL DISTRIBUTION WIDTH 14.7 % (11.5-14.5); WHITE BLOOD COUNT 12.2 10^3/ul (4.8-10.8)
[2016-09-07 07:53] LABS: ALBUMIN 4.2 g/dl (3.3-4.9); ALBUMIN/GLOBULIN RATIO 1.35; BILIRUBIN,INDIRECT 1.2 mg/dl (0-1.1); BILIRUBIN,TOTAL 1.2 mg/dl (0.2-1.3); CREATININE 0.44 mg/dl (0.61-1.24); POTASSIUM 4.4 mmol/L (3.5-5.1); TOTAL PROTEIN 7.3 g/dl (6.1-8.1)
[2016-09-07] MEDS: THIAMINE 100 MG TAB PO SCH (08:16)
[2016-09-07] MEDS: ASPIRIN (EC) 81 MG TAB PO SCH (08:17)
[2016-09-07] MEDS: MULTIVITAMINS THERAPEUTIC TAB PO SCH (08:17)
[2016-09-07] MEDS: FERROUS SULFATE (EC) 325 MG TAB PO SCH (08:17)
[2016-09-07] MEDS: SPIRONOLACTONE 50 MG TAB PO SCH (08:17)
[2016-09-07] MEDS: POTASSIUM CHLORIDE (SR) 10 MEQ TAB PO SCH (08:18)
[2016-09-07] MEDS: FOLIC ACID 1 MG TAB PO SCH (08:18)
[2016-09-07] MEDS: FAMOTIDINE 20 MG TAB PO SCH ×2 (08:18→21:26)
[2016-09-07] MEDS: LOSARTAN 50 MG TAB PO SCH ×2 (08:18→21:00)
[2016-09-07 08:29] LABS: MAGNESIUM 1.4 mg/dl (1.7-2.5); PHOSPHORUS 3.5 mg/dl (2.5-4.9)
[2016-09-07] MEDS: HEPARIN 5,000 UNIT/0.5 ML VIAL SC SCH (08:31)
[2016-09-07] MEDS: DILTIAZEM (CD) 120 MG CAP PO SCH ×2 (09:00→21:00)
[2016-09-07] MEDS ORDERED: FUROSEMIDE 40 MG INJ IV ONE (10:00)
[2016-09-07] MEDS ORDERED: MAGNESIUM SULFATE 3 GM in SOD CHLORIDE 0.9% 100 ML IVPB ONE (10:00)
[2016-09-07 11:02] LABS: AADO2 Arterial 108.4 mmHg (7.0-24.0); Allen Test ACCEPTAB; Arterial COHb 1.8 % (0.0-3.0); Arterial Fraction of Oxyhgb 65.2 % (93.0-99.0); Arterial HCO3 38.6 mmol/L (22.0-26.0); Arterial MetHb 0.2 % (0.0-1.5); Arterial Total Hemglobin 15.2 g/dl (12.0-18.0); MODE NASAL CANNULA
[2016-09-07] MEDS ORDERED: LACTULOSE 30ML CUP PO SCH (12:00)
--- NOTE | 2016-09-07 12:19 | RADRPT ---
PROCEDURE: XR Chest. CLINICAL INDICATION: Shortness of breath TECHNIQUE: An AP view of the chest was obtained. COMPARISON: Chest x-ray dated 09/01/2016 FINDINGS: There is prominence of the interstitial and central pulmonary vascular markings with left basilar i nterstitial opacities and small left pleural effusion. No pneumothorax is seen. The cardiomediast inal silhouette is mildly enlarged . Calcifications are seen within the aortic arch. The osseous s tructures demonstrate senescent changes. IMPRESSION: 1. Findings suggestive of pulmonary vascular congestion with small left pleural effusion. Findings are new when compared to the prior examination. 2. Left basilar atelectasis versus pneumonia. 3. Mild cardiomegaly and aortic atherosclerosis. RPTAT: HH .Geeta Escoto MD, Date Time Electronically viewed and signed by .Geeta Escoto MD, on 09/07/2016 12:19 .G/
[2016-09-07] MEDS: DIGOXIN 0.125 MG TAB PO SCH (13:00)
--- NOTE | 2016-09-07 13:08 | CONS ---
Date/Time of Note Date/Time of Note DATE: 09/07/16 TIME: 13:05 Assessment/Plan Assessment/Plan Additional Assessment/Plan Assessment recommendations; next 1. Patient initially admitted for hypoxemic and hypercapnic respiratory failure likely from underlying obesity/hypoventilation syndrome and possibly sleep apnea no decompensated with respiratory acidosis which is uncompensated and not been corrected by BiPAP. Patient on beta ICU and will be intubated. Further recommendations to be made after patient is reassessed. Consultation Date/Type/Reason Admit Date/Time Aug 30, 2016 at 23:34 Type of Consultation: Pulmonary 24 HR Interval Summary Free Text/Dictation Patient condition is taken a turn for the worse today patient has become much more lethargic a stat ABG was done which is showing hypercapnic respiratory failure with respiratory acidosis. Patient has been tried on BiPAP and repeat ABG also is not showing any significant improvement as well as an improvement in overall clinical condition. The patient has been transferred to ICU and will be intubated. Vlad; middle-aged male, morbidly obese, currently unresponsive. On BiPAP. Exam/Review of Systems Vital Signs Vitals Vital Signs Date Time Temp Pulse Resp B/P Pulse Ox O2 Delivery O2 Flow Rate FiO2 09/07/16 12:07 89 09/07/16 11:11 94 50 09/07/16 09:24 Nasal Cannula 09/07/16 04:29 98.4 20 129/63 09/07/16 01:14 4.5 Exam HEENT exam; supple neck, JVD difficult to see because of short neck. Patient currently on BiPAP. Pupils are small bilaterally. No lymphadenopathy. Chest examination of Tashi diminished breath sounds throughout. S1-S2 audible , no murmurs. Regular rhythm. Abdomen exam is; grossly protuberant. Bowel sounds audible. Extremity examination; trace peripheral edema. Pulses 1+ bilaterally. 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 Results Result Diagram: 09/07/16 0635 09/07/16 0635 Results 24 hrs Laboratory Tests Test 09/07/16 06:35 09/07/16 10:31 09/07/16 12:33 White Blood Count 12.2 #H Red Blood Count 4.90 Hemoglobin 14.6 Hematocrit 44.0 Mean Corpuscular Volume 89.8 Mean Corpuscular Hemoglobin 29.8 Mean Corpuscular Hemoglobin Concent 33.2 Red Cell Distribution Width 14.7 H Platelet Count 95 L Mean Platelet Volume 10.1 Neutrophils % 73.3 Lymphocytes % 9.7 L Monocytes % 14.8 H Eosinophils % 1.8 Basophils % 0.2 Nucleated Red Blood Cells % 0.0 Neutrophils # 8.9 H Lymphocytes # 1.2 Monocytes # 1.8 H Eosinophils # 0.2 Basophils # 0.0 Nucleated Red Blood Cells # 0.0 Sodium Level 125 L Potassium Level 4.4 Chloride Level 80 L Carbon Dioxide Level 43 *H Anion Gap 6 L Blood Urea Nitrogen 10 Creatinine 0.44 L Glucose Level 103 Calcium Level 9.0 Phosphorus Level 3.5 Magnesium Level 1.4 L Total Bilirubin 1.2 Direct Bilirubin 0.00 Indirect Bilirubin 1.2 H Aspartate Amino Transf (AST/SGOT) 40 Alanine Aminotransferase (ALT/SGPT) 51 Alkaline Phosphatase 113 Ammonia 68 #H Total Protein 7.3 Albumin 4.2 Globulin 3.10 Albumin/Globulin Ratio 1.35 Blood Gas Specimen Source Blood arterial Arterial Blood Date Drawn 09/07/2016 10:00:51 AM Arterial Blood pH (Temp corrected) 7.317 L Arterial Blood pCO2 (Temp correct) 77.2 H Arterial Blood pO2 (Temp corrected) 36.8 *L Arterial Blood HCO3 38.6 H Arterial Blood Base Excess 9.0 H Arterial Blood Oxygen Saturation 66.5 L Dilshad Test ACCEPTAB Arterial Blood Gas Puncture Site Right Radial Arterial Blood Carboxyhemoglobin 1.8 Arterial Blood Methemoglobin 0.2 Blood Gas A-a O2 Differential 108.4 H Oxyhemoglobin Percent 65.2 L Total Hemoglobin 15.2 Blood Gas Temperature 37.0 Blood Gas Modality NASAL CANNULA FiO2 33.0 Blood Gas Critical Value Read Back FAISAL STOVALL RN. Blood Gas Notified Whom RT Blood Gas Notified Time 09/07/2016 11:01:31 AM Bedside Glucose 107 Medications Medications Current Medications Morphine Sulfate (morphine) 3 mg Q4H PRN IV PAIN; Start 08/31/16 at 01:00 Ondansetron HCl (Zofran Inj) 4 mg Q6H PRN IV NAUSEA AND/OR VOMITING; Start 02/06 at 02:00 Morphine Sulfate (morphine) 2 mg Q4H PRN IV PAIN LEVEL 7-10; Start 08/31/16 at 02:00 Aspirin (Halfprin) 81 mg DAILY PO Last administered on 09/07/16t 08:17; Admin Dose 81 MG; Start 08/31/16 at 09:00 Atorvastatin Calcium (Lipitor) 10 mg QHS PO Last administered on 09/06/16 21: 19; Admin Dose 10 MG; Start 08/31/16 at 21:00 Ferrous Sulfate (Ferrous Sulfate (Ec)) 325 mg DAILY PO Last administered on 08:17; Admin Dose 325 MG; Start 08/31/16 at 09:00 Folic Acid (Folic Acid) 1 mg DAILY PO Last administered on 09/07/16 08:18; Admin Dose 1 MG; Start 08/31/16 at 09:00 Furosemide (Lasix) 20 mg BID@ PO Last administered on 09/07/16 06:25; Admin Dose 20 MG; Start 08/31/16 at 06:00 Losartan Potassium (Cozaar) 50 mg BID PO Last administered on 09/07/16 08:18; Admin Dose 50 MG; Start 08/31/16 at 09:00 Multivitamins Therapeutic (Theragran) 1 tab DAILY PO Last administered on 08:17; Admin Dose 1 TAB; Start 08/31/16 at 09:00 Potassium Chloride (Klor-Con 10) 10 meq DAILY PO Last administered on 08:18; Admin Dose 10 MEQ; Start 08/31/16 at 09:00 Spironolactone (Aldactone) 50 mg DAILY PO Last administered on 09/07/16 08:17 ; Admin Dose 50 MG; Start 08/31/16 at 09:00 Thiamine HCl (Vitamin B1) 100 mg DAILY PO Last administered on 09/07/16 08:16 ; Admin Dose 100 MG; Start 08/31/16 at 09:00 Famotidine (Pepcid) 20 mg BID PO Last administered on 09/07/16 08:18; Admin Dose 20 MG; Start 09/01/16 at 21:00 Digoxin (Digoxin) 0.125 mg DAILY@13 PO Last administered on 09/06/16 12:38; Admin Dose 0.125 MG; Start 09/05/16 at 13:00 Diltiazem HCl (Cardizem Cd) 120 mg BID PO Last administered on 09/07/16 09:00 ; Admin Dose 120 MG; Start 09/04/16 at 11:00 Lactulose (Lactulose Enema) 100 ml Q8 HI ; Start 09/07/16 at 14:00 ABIMAEL ZAIDI Sep 07, 2016 13:07
--- NOTE | 2016-09-07 13:14 | PN ---
Date/Time of Note Date/Time of Note DATE: 09/07/16 TIME: 13:12 Assessment/Plan VTE Prophylaxis VTE Prophylaxis Intervention: other Lines/Catheters Urinary Cath still in place: Yes Reason Cath still needed: urinary retention Assessment/Plan Chief Complaint/Hosp Course hyponatremia hyperammonemia cirrohsia transferred to icu one dose samska 15 mg via ngt Problems: Exam/Review of Systems Vital Signs Vitals Vital Signs Date Time Temp Pulse Resp B/P Pulse Ox O2 Delivery O2 Flow Rate FiO2 09/07/16 12:07 89 09/07/16 11:11 94 50 09/07/16 09:24 Nasal Cannula 09/07/16 04:29 98.4 20 129/63 09/07/16 01:14 4.5 Exam Constitutional: other Head: normocephalic Neck: supple Respiratory: clear to auscultation Cardiovascular: regular rate and rhythm Gastrointestinal: distended, soft Extremities: edema Results Result Diagram: 09/07/16 0635 09/07/16 0635 Results 24 hrs Laboratory Tests Test 09/07/16 06:35 09/07/16 10:31 09/07/16 12:33 White Blood Count 12.2 #H Red Blood Count 4.90 Hemoglobin 14.6 Hematocrit 44.0 Mean Corpuscular Volume 89.8 Mean Corpuscular Hemoglobin 29.8 Mean Corpuscular Hemoglobin Concent 33.2 Red Cell Distribution Width 14.7 H Platelet Count 95 L Mean Platelet Volume 10.1 Neutrophils % 73.3 Lymphocytes % 9.7 L Monocytes % 14.8 H Eosinophils % 1.8 Basophils % 0.2 Nucleated Red Blood Cells % 0.0 Neutrophils # 8.9 H Lymphocytes # 1.2 Monocytes # 1.8 H Eosinophils # 0.2 Basophils # 0.0 Nucleated Red Blood Cells # 0.0 Sodium Level 125 L Potassium Level 4.4 Chloride Level 80 L Carbon Dioxide Level 43 *H Anion Gap 6 L Blood Urea Nitrogen 10 Creatinine 0.44 L Glucose Level 103 Calcium Level 9.0 Phosphorus Level 3.5 Magnesium Level 1.4 L Total Bilirubin 1.2 Direct Bilirubin 0.00 Indirect Bilirubin 1.2 H Aspartate Amino Transf (AST/SGOT) 40 Alanine Aminotransferase (ALT/SGPT) 51 Alkaline Phosphatase 113 Ammonia 68 #H Total Protein 7.3 Albumin 4.2 Globulin 3.10 Albumin/Globulin Ratio 1.35 Blood Gas Specimen Source Blood arterial Arterial Blood Date Drawn 09/07/2016 10:00:51 AM Arterial Blood pH (Temp corrected) 7.317 L Arterial Blood pCO2 (Temp correct) 77.2 H Arterial Blood pO2 (Temp corrected) 36.8 *L Arterial Blood HCO3 38.6 H Arterial Blood Base Excess 9.0 H Arterial Blood Oxygen Saturation 66.5 L Dilshad Test ACCEPTAB Arterial Blood Gas Puncture Site Right Radial Arterial Blood Carboxyhemoglobin 1.8 Arterial Blood Methemoglobin 0.2 Blood Gas A-a O2 Differential 108.4 H Oxyhemoglobin Percent 65.2 L Total Hemoglobin 15.2 Blood Gas Temperature 37.0 Blood Gas Modality NASAL CANNULA FiO2 33.0 Blood Gas Critical Value Read Back FAISAL STOVALL RN. Blood Gas Notified Whom RT Blood Gas Notified Time 09/07/2016 11:01:31 AM Bedside Glucose 107 Medications Medications Current Medications Morphine Sulfate (morphine) 3 mg Q4H PRN IV PAIN; Start 08/31/16 at 01:00 Ondansetron HCl (Zofran Inj) 4 mg Q6H PRN IV NAUSEA AND/OR VOMITING; Start 02/06 at 02:00 Morphine Sulfate (morphine) 2 mg Q4H PRN IV PAIN LEVEL 7-10; Start 08/31/16 at 02:00 Aspirin (Halfprin) 81 mg DAILY PO Last administered on 09/07/16 08:17; Admin Dose 81 MG; Start 08/31/16 at 09:00 Atorvastatin Calcium (Lipitor) 10 mg QHS PO Last administered on 09/06/16 21: 19; Admin Dose 10 MG; Start 08/31/16 at 21:00 Ferrous Sulfate (Ferrous Sulfate (Ec)) 325 mg DAILY PO Last administered on 08:17; Admin Dose 325 MG; Start 08/31/16 at 09:00 Folic Acid (Folic Acid) 1 mg DAILY PO Last administered on 09/07/16 08:18; Admin Dose 1 MG; Start 08/31/16 at 09:00 Furosemide (Lasix) 20 mg BID@,18 PO Last administered on 09/07/16 06:25; Admin Dose 20 MG; Start 08/31/16 at 06:00 Losartan Potassium (Cozaar) 50 mg BID PO Last administered on 09/07/16 08:18; Admin Dose 50 MG; Start 08/31/16 at 09:00 Multivitamins Therapeutic (Theragran) 1 tab DAILY PO Last administered on 08:17; Admin Dose 1 TAB; Start 08/31/16 at 09:00 Potassium Chloride (Klor-Con 10) 10 meq DAILY PO Last administered on 08:18; Admin Dose 10 MEQ; Start 08/31/16 at 09:00 Spironolactone (Aldactone) 50 mg DAILY PO Last administered on 09/07/16 08:17 ; Admin Dose 50 MG; Start 08/31/16 at 09:00 Thiamine HCl (Vitamin B1) 100 mg DAILY PO Last administered on 09/07/16 08:16 ; Admin Dose 100 MG; Start 08/31/16 at 09:00 Famotidine (Pepcid) 20 mg BID PO Last administered on 09/07/16 08:18; Admin Dose 20 MG; Start 09/01/16 at 21:00 Digoxin (Digoxin) 0.125 mg DAILY@13 PO Last administered on 09/06/16 12:38; Admin Dose 0.125 MG; Start 09/05/16 at 13:00 Diltiazem HCl (Cardizem Cd) 120 mg BID PO Last administered on 09/07/16 09:00 ; Admin Dose 120 MG; Start 09/04/16 at 11:00 Lactulose (Lactulose Enema) 100 ml Q8 [place] ; Start 09/07/16 at 14:00 JENELLE JERONIMO MD Sep 07, 2016 13:14
[2016-09-07] MEDS ORDERED: TOLVAPTAN 15 MG TABLET PO ONE (13:30)
[2016-09-07] MEDS ORDERED: PROPOFOL 100 ML ONE (13:34)
--- NOTE | 2016-09-07 13:39 | PN ---
Date/Time of Note Date/Time of Note DATE: 09/07/16 TIME: 13:29 Assessment/Plan VTE Prophylaxis VTE Prophylaxis Intervention: heparin Lines/Catheters Urinary Cath still in place: Yes Reason Cath still needed: other (indicate) Assessment/Plan Chief Complaint/Hosp Course 1. Chest pain. Acute coronary syndrome ruled out. Troponins negative so far. The patient's 2D echocardiogram showing ejection fraction of 55%. The patient will be continued on aspirin. Cardiology following the patient. 2. Essential hypertension. Continue antihypertensives. Blood pressure fairly well controlled. 3. Chronic obstructive pulmonary disease. The patient on inhaled bronchodilators and tapering dose of steroids. Pulmonology following. 4. Acute respiratory failure. Acute on chronic. Hypoxic and hypercapnic. Most probably a combination of diastolic heart failure as well as underlying chronic obstructive pulmonary disease exacerbation. The patient will be continued on supplemental oxygen and inhaled bronchodilators. However, Xopenex will be used because of underlying atrial fibrillation. 5. Atrial fibrillation. Rate controlled. Unable to anticoagulate because of underlying thrombocytopenia. 6. Alcoholic liver disease. Continue diuretics. The patient will also be continued on lactulose because of underlying hyperammonemia. 7. Thrombocytopenia. Most probably from acute alcoholic liver disease. Monitor for any bleeding. 8. Hyponatremia. The patient's sodium will be increased gradually. Worsening. Nephrology following. S/P 1 dose of vasopressin antagonist. 9. Alcohol abuse. The patient's last drink was on the day prior to hospitalization. The patient will be maintained on a daily thiamine. Status post Librium taper. 10. Fluid, electrolytes and nutrition. Low cholesterol, low-salt diet. 11. Deep venous thrombosis prophylaxis. Subcutaneous heparin. Will hold this if there is worsening thrombocytopenia. 12. Gastrointestinal prophylaxis. H2 receptor blockers. Patient had a rapid response on 09/07/2016 at 12:35 PM. The patient has been lethargic since the morning. Hence an ABG was done and it revealed respiratory acidosis. Hence the patient was started on BiPAP therapy. The patient's mental status was 100 despite being on BiPAP therapy. Therefore, [employer] was called. Repeat ABG was ordered. A stat chest x-ray was ordered. The patient was evaluated by heel sander. The patient to be moved to intensive care unit and to be intubated for airway protection. Case discussed with Dr. Tafoya. Critical care time: 45 minutes. Problems: Subjective 24 Hr Interval Summary Free Text/Dictation Patient has been a progressively becoming more and more lethargic today. Started on BiPAP earlier today. Exam/Review of Systems Vital Signs Vitals Vital Signs Date Time Temp Pulse Resp B/P Pulse Ox O2 Delivery O2 Flow Rate FiO2 09/07/16 13:23 83 09/07/16 11:11 94 50 09/07/16 09:24 Nasal Cannula 09/07/16 04:29 98.4 20 129/63 09/07/16 01:14 4.5 Exam GENERAL: This is a morbidly obese male patient lying in bed in severe respiratory distress on BiPAP. HEENT: Head normocephalic and atraumatic. Eyes: Anicteric sclerae. Conjunctivae clear. ENT: Nasal septum is midline. Oral mucosa is dry. NECK: Short with increased neck circumference. RESPIRATORY: Bilaterally diminished breath sounds. Use of accessory muscles of respiration. No expiratory wheezing. CARDIAC: Irregularly irregular rhythm. S1 and S2 heard. ABDOMEN: Obese. Bowel sounds hypoactive. GENITOURINARY: Deferred. EXTREMITIES: No cyanosis, no clubbing. Bilateral lower extremity 2+ pitting edema. Peripheral pulses are palpable. NEUROLOGIC: The patient is obtunded. Results Result Diagram: 09/07/16 0635 09/07/16 0635 Results 24 hrs Laboratory Tests Test 09/07/16 06:35 09/07/16 10:31 09/07/16 12:33 White Blood Count 12.2 #H Red Blood Count 4.90 Hemoglobin 14.6 Hematocrit 44.0 Mean Corpuscular Volume 89.8 Mean Corpuscular Hemoglobin 29.8 Mean Corpuscular Hemoglobin Concent 33.2 Red Cell Distribution Width 14.7 H Platelet Count 95 L Mean Platelet Volume 10.1 Neutrophils % 73.3 Lymphocytes % 9.7 L Monocytes % 14.8 H Eosinophils % 1.8 Basophils % 0.2 Nucleated Red Blood Cells % 0.0 Neutrophils # 8.9 H Lymphocytes # 1.2 Monocytes # 1.8 H Eosinophils # 0.2 Basophils # 0.0 Nucleated Red Blood Cells # 0.0 Sodium Level 125 L Potassium Level 4.4 Chloride Level 80 L Carbon Dioxide Level 43 *H Anion Gap 6 L Blood Urea Nitrogen 10 Creatinine 0.44 L Glucose Level 103 Calcium Level 9.0 Phosphorus Level 3.5 Magnesium Level 1.4 L Total Bilirubin 1.2 Direct Bilirubin 0.00 Indirect Bilirubin 1.2 H Aspartate Amino Transf (AST/SGOT) 40 Alanine Aminotransferase (ALT/SGPT) 51 Alkaline Phosphatase 113 Ammonia 68 #H Total Protein 7.3 Albumin 4.2 Globulin 3.10 Albumin/Globulin Ratio 1.35 Blood Gas Specimen Source Blood arterial Arterial Blood Date Drawn 09/07/2016 10:00:51 AM Arterial Blood pH (Temp corrected) 7.317 L Arterial Blood pCO2 (Temp correct) 77.2 H Arterial Blood pO2 (Temp corrected) 36.8 *L Arterial Blood HCO3 38.6 H Arterial Blood Base Excess 9.0 H Arterial Blood Oxygen Saturation 66.5 L Dilshad Test ACCEPTAB Arterial Blood Gas Puncture Site Right Radial Arterial Blood Carboxyhemoglobin 1.8 Arterial Blood Methemoglobin 0.2 Blood Gas A-a O2 Differential 108.4 H Oxyhemoglobin Percent 65.2 L Total Hemoglobin 15.2 Blood Gas Temperature 37.0 Blood Gas Modality NASAL CANNULA FiO2 33.0 Blood Gas Critical Value Read Back FAISAL STOVALL RN. Blood Gas Notified Whom RT Blood Gas Notified Time 09/07/2016 11:01:31 AM Bedside Glucose 107 Medications Medications Current Medications Morphine Sulfate (morphine) 3 mg Q4H PRN IV PAIN; Start 08/31/16 at 01:00 Ondansetron HCl (Zofran Inj) 4 mg Q6H PRN IV NAUSEA AND/OR VOMITING; Start 02/06 at 02:00 Morphine Sulfate (morphine) 2 mg Q4H PRN IV PAIN LEVEL 7-10; Start 08/31/16 at 02:00 Aspirin (Halfprin) 81 mg DAILY PO Last administered on 09/07/16 08:17; Admin Dose 81 MG; Start 08/31/16 at 09:00 Atorvastatin Calcium (Lipitor) 10 mg QHS PO Last administered on 09/06/16 21: 19; Admin Dose 10 MG; Start 08/31/16 at 21:00 Ferrous Sulfate (Ferrous Sulfate (Ec)) 325 mg DAILY PO Last administered on 08:17; Admin Dose 325 MG; Start 08/31/16 at 09:00 Folic Acid (Folic Acid) 1 mg DAILY PO Last administered on 09/07/16 08:18; Admin Dose 1 MG; Start 08/31/16 at 09:00 Furosemide (Lasix) 20 mg BID@06,18 PO Last administered on 09/07/16 06:25; Admin Dose 20 MG; Start 08/31/16 at 06:00 Losartan Potassium (Cozaar) 50 mg BID PO Last administered on 09/07/16 08:18; Admin Dose 50 MG; Start 08/31/16 at 09:00 Multivitamins Therapeutic (Theragran) 1 tab DAILY PO Last administered on 08:17; Admin Dose 1 TAB; Start 08/31/16 at 09:00 Potassium Chloride (Klor-Con 10) 10 meq DAILY PO Last administered on 08:18; Admin Dose 10 MEQ; Start 08/31/16 at 09:00 Spironolactone (Aldactone) 50 mg DAILY PO Last administered on 09/07/16 08:17 ; Admin Dose 50 MG; Start 08/31/16 at 09:00 Thiamine HCl (Vitamin B1) 100 mg DAILY PO Last administered on 09/07/16 08:16 ; Admin Dose 100 MG; Start 08/31/16 at 09:00 Famotidine (Pepcid) 20 mg BID PO Last administered on 09/07/16 08:18; Admin Dose 20 MG; Start 09/01/16 at 21:00 Digoxin (Digoxin) 0.125 mg DAILY@13 PO Last administered on 09/06/16 12:38; Admin Dose 0.125 MG; Start 09/05/16 at 13:00 Diltiazem HCl (Cardizem Cd) 120 mg BID PO Last administered on 09/07/16 09:00 ; Admin Dose 120 MG; Start 09/04/16 at 11:00 Lactulose (Lactulose Enema) 100 ml Q8 [place] ; Start 09/07/16 at 14:00 Tolvaptan (Samsca) 15 mg ONCE ONCE PO ; Start 09/07/16 at 13:30; Stop 09/07/16 at 13:31 TRUDY HILTON NP Sep 07, 2016 13:39
[2016-09-07] MEDS: PROPOFOL 100 ML IV SCH ×5 (13:44→22:32)
[2016-09-07] MEDS ORDERED: LACTULOSE ENEMA 1,000 ML BTL PR SCH (14:00)
[2016-09-07] MEDS ORDERED: NORepinephrine 8MG/250 ML (PMX 250 ML ONE (14:03)
--- NOTE | 2016-09-07 14:21 | RADRPT ---
PROCEDURE: XR Chest. CLINICAL INDICATION: Shortness of breath TECHNIQUE: An AP view of the chest was obtained. COMPARISON: Chest x-ray dated 09/07/2016 at 10:53 AM FINDINGS: There is interval placement of an enteric tube with the tip in the distal stomach. There is also in terval placement of an endotracheal tube with the tip 5.4 cm above the amber. There is interval complete opacification of the left hemithorax. The left mainstem bronchus appears to be truncated, concerning for mucous plug or aspiration. The cardiomediastinal shifted to the le ft. Moderate right central vascular congestion persists. Calcifications are seen within the aorti c arch. The osseous structures demonstrate senescent changes. IMPRESSION: 1. Interval complete opacification of the left hemithorax, concerning for atelectasis, possibly sec ondary to mucous plugging or aspiration as the left mainstem bronchus appears truncated. 2. Interval intubation and enteric tube placement which appear in appropriate position. 3. Persistent moderate congestion. 4. Aortic atherosclerosis. Findings discussed with ICU nurse, Deon, for Dr. Ramirez on 09/07/2016 at 02:19 p.m. RPTAT: EE .Jourdan Boyle MD, MD Date Time Electronically viewed and signed by .Jourdan Boyle MD, on 09/07/2016 14:21 .A/
[2016-09-07] MEDS ORDERED: NORepinephrine 8MG/250 ML (PMX 250 ML IV SCH (14:30)
[2016-09-07] MEDS ORDERED: ALBUTEROL/IPRATROPIUM (NEB) 3 ML AMP HHN PRN (14:30)
[2016-09-07 14:52] LABS: Allen Test ACCEPTAB; Arterial Base Excess 15.1 mmol/L (-3.0-3); Arterial COHb 1.3 % (0.0-3.0); Arterial Fraction of Oxyhgb 96.5 % (93.0-99.0); Arterial HCO3 44.2 mmol/L (22.0-26.0); Arterial MetHb 0.3 % (0.0-1.5); Arterial Total Hemglobin 15.8 g/dl (12.0-18.0); MODE VENT - AC
--- NOTE | 2016-09-07 15:43 | QN ---
Documentation Comment I have been consulted to see the patient for intubation given hypercarbic respiratory failure, morbid obesity On exam: General: Obtunded on BiPAP, morbidly obese Head: Normocephalic, atraumatic. Eyes: No spontaneous eye opening ENT: BiPAP in place Neck: Supple, no lymphadenopathy Respiratory: Decreased breath sounds at the left, labored breathing Cardiovascular: Tachycardia , no murmurs, rubs, or gallops Abdominal: Soft, non-tender, non-distended, no peritoneal signs : Deferred MSK: Limited movement of all 4 extremities, no bony abnormalities Neurologic: Limited exam, and encephalopathic, limited movement of all 4 extremities Skin: No rash, no significant breakdown Psych: Unable to assess Procedure(s): Intubation Note: Indication: Airway protection Consent: This was an emergent situation, implied consent was observed RSI Medications: Etomidate 20 mg, succinylcholine 150 mg Tube size: 8 Secured at: 23 at the lip Procedure: Endotracheal intubation was performed. The patient was preoxygenated with supplemental oxygen, the room was set up with emergent airway equipment including [id number], suction, adjunct airways. The patient was a very difficult intubation. I attempted intubation initially with Glidescope technique. The patient had very poor dentition and a significant amount of soft tissue in the posterior pharynx as well as with the facial soft tissue and tongue. After insertion of the blade with only the slightest amount of pressure the patient had a fracture of tooth 9 with some mild bleeding. The tooth was removed intact, no aspiration. There was very limited visualization of the airway with the glide scope. This was removed and the patient was back. A MAC 4 blade was inserted and I was able to see the epiglottis but unable to visualize the cords despite cricoid manipulation. Using the MAC blade to assist with airway manipulation I was able to insert the Glidescope blade and then remove the MAC blade. At this point I was able to visualize the cord, the patient had a very narrow and anterior airway and I was able to insert the endotracheal tube at that point. The balloon was inflated, the patient had color change and bilateral breath sounds the left side of the chest was significantly diminished. Complication: The patient had a fracture of tooth 9 with only the slightest manipulation of the oropharynx and Glidescope blade. I believe this is likely secondary to extremely poor dentition as there was only very minimal force applied that would be consistent with normal intubation techniques. The tooth was removed intact and there is no evidence of aspiration of the tooth. Gauze was placed and bleeding was controlled. Chest x-ray: I reviewed and interpreted a 1 view of the chest Mediastinum: No enlargement Cardiac silhouette: cardiomegaly Airspace: Complete opacification of the left lung field consistent with mucous plugging versus atelectasis Bones: No evidence of fracture Appropriate placement of the endotracheal tube though could be advanced 1 cm. Information related to nursing team and respiratory therapy Assessment and plan: The patient has obvious evidence of airway failure secondary to hypercarbia. He has decreased breath sounds of the left lung field. The patient was intubated as documented above. There was a complication with a dental fracture as documented above. Again, likely secondary to very poor dentition as no significant force was applied. The patient's chest x-ray shows significant opacification of the left lung field likely consistent with atelectasis versus mucous plugging. Strong recommendation for bronchoscopy. The patient will benefit from advancement of endotracheal tube 1 cm to 24. Further care by admitting team. Post sedation with propofol. Diagnostic impression: Hypercarbic respiratory failure Tooth 9 dental fracture as a complication of difficult intubation Left lung atelectasis and mucous plugging CARMELO VALDEZ MD Sep 07, 2016 15:43
[2016-09-07] MEDS ORDERED: ALBUTEROL/IPRATROPIUM (NEB) 3 ML AMP HHN SCH (16:00)
[2016-09-07] MEDS ORDERED: ACETYLCYSTEINE 20% 4 ML VIAL NEB SCH (16:00)
[2016-09-07] MEDS: PIPER-TAZO 3.375 GM IV (PMX) 100 ML IVPB SCH ×2 (16:48→21:23)
[2016-09-07] MEDS: LACTULOSE 30ML CUP NGT SCH ×2 (16:48→21:26)
[2016-09-07 17:04] LABS: AADO2 Arterial 167.5 mmHg (7.0-24.0); Allen Test ACCEPTAB; Arterial Base Excess 9.2 mmol/L (-3.0-3); Arterial COHb 1.8 % (0.0-3.0); Arterial Fraction of Oxyhgb 94.4 % (93.0-99.0); Arterial MetHb 0.3 % (0.0-1.5); Arterial Total Hemglobin 15.5 g/dl (12.0-18.0); Blood Gas IEPAP 18/8; Blood Gas PS 10; MODE MASK - BIPAP
--- NOTE | 2016-09-07 17:41 | RADRPT ---
PROCEDURE: XR Chest. CLINICAL INDICATION: Endotracheal tube placement TECHNIQUE: Single AP portable chest COMPARISON: 08/31/2016 Chest x-ray FINDINGS: Marked cardiomegaly with vascular congestion and left pleural effusion. Left upper lobe airspace op acity suspicious for consolidation.. Endotracheal tube tip 5.7 cm above the amber. NG tube tip be yond the inferior imaging plane. Atherosclerotic calcification of the aorta. No pneumothorax. The osseous structures and soft tissues are unremarkable. IMPRESSION: 1. Cardiomegaly and vascular congestion with small left pleural effusion most compatible with CHF. RPTAT:AAJJ Lucio Ricketts Physician Date Time Electronically viewed and signed by Physician Clarence on 09/07/2016 17:41 BERTA/
[2016-09-07] MEDS ORDERED: ALBUTEROL/IPRATROPIUM (NEB) 3 ML AMP INH PRN (18:00)
[2016-09-07] MEDS: IPRATROPIUM (HFA) 12.9 GM INHALER INH SCH (19:57)
[2016-09-07] MEDS: ALBUTEROL 18 GM INHALER INH SCH (19:57)
[2016-09-07] MEDS: ACETYLCYSTEINE 20% 4 ML VIAL NEB SCH (19:58)
[2016-09-07] MEDS: ATORVASTATIN 10 MG TAB PO SCH (21:26)
[2016-09-08] VITALS (107 sets, daily range): BP systolic 69–175; BP diastolic 44–109; PULSE 83–117; RESP 13–38
[2016-09-08] MEDS: PIPER-TAZO 3.375 GM IV (PMX) 100 ML IVPB SCH ×4 (00:08→17:54)
[2016-09-08] MEDS: PROPOFOL 100 ML IV SCH ×7 (01:11→17:54)
[2016-09-08] MEDS: ACETYLCYSTEINE 20% 4 ML VIAL NEB SCH ×4 (01:26→19:28)
[2016-09-08] MEDS: IPRATROPIUM (HFA) 12.9 GM INHALER INH SCH ×4 (01:26→19:28)
[2016-09-08] MEDS: LACTULOSE 30ML CUP NGT SCH ×3 (05:59→21:04)
[2016-09-08 06:21] LABS: ADD UMIC YES; UR BILIRUBIN (Dip) NEGATIVE (NEGATIVE); UR BLOOD (Dip) 2+ (NEGATIVE); UR CLARITY CLEAR (CLEAR); UR COLOR LT. YELLOW (YELLOW); UR GLUCOSE (Dip) NEGATIVE (NEGATIVE); UR KETONES (Dip) NEGATIVE (NEGATIVE); UR LEUKOCYTE ESTERASE (Dip) NEGATIVE (NEGATIVE); UR NITRITE (Dip) NEGATIVE (NEGATIVE); UR TOTAL PROTEIN (Dip) NEGATIVE (NEGATIVE); UR UROBILINOGEN (Dip) 2.0 E.U./dL (0.1-1.0)
[2016-09-08 06:39] LABS: ADD SCAN DIFF NO
[2016-09-08 06:40] LABS: URINE RBCS 25-50 /HPF (0)
[2016-09-08 06:51] LABS: ABNORMAL IP MESSAGE 1; BASOPHIL # 0.1 10^3/ul (0.0-0.1); BASOPHILS % 0.4 % (0.0-2.0); EOSINOPHILS # 0.1 10^3/ul (0.0-0.5); EOSINOPHILS % 0.4 % (0.0-7.0); HEMATOCRIT 42.7 % (42.0-52.0); HEMOGLOBIN 14.5 g/dl (14.0-18.0); LYMPHOCYTES # 1.6 10^3/ul (0.8-2.9); LYMPHOCYTES % 14.1 % (15.0-51.0); MEAN CORPUSCULAR HEMOGLOBIN 29.5 pg (29.0-33.0); MEAN PLATELET VOLUME 9.5 fl (7.4-10.4); MONOCYTES % 17.2 % (0.0-11.0); NEUTROPHIL # 7.7 10^3/ul (1.6-7.5); NEUTROPHILS % 67.2 % (39.0-77.0); PLATELET COUNT 118 10^3/UL (140-415); RED BLOOD COUNT 4.91 10^6/ul (4.70-6.10); WHITE BLOOD COUNT 11.5 10^3/ul (4.8-10.8)
[2016-09-08 07:12] LABS: ALBUMIN 3.7 g/dl (3.3-4.9); ALBUMIN/GLOBULIN RATIO 1.19; BILIRUBIN,INDIRECT 1.8 mg/dl (0-1.1); BILIRUBIN,TOTAL 1.8 mg/dl (0.2-1.3); CALCIUM 9.4 mg/dl (8.4-10.2); CREATININE 0.71 mg/dl (0.61-1.24); POTASSIUM 3.4 mmol/L (3.5-5.1); TOTAL PROTEIN 6.8 g/dl (6.1-8.1)
[2016-09-08 07:25] LABS: PHOSPHORUS 1.6 mg/dl (2.5-4.9)
[2016-09-08] MEDS ORDERED: POTASSIUM CHLORIDE 250 ML IVPB ONE (07:30)
--- NOTE | 2016-09-08 07:35 | PN ---
Date/Time of Note Date/Time of Note DATE: 09/08/16 TIME: 07:29 Assessment/Plan VTE Prophylaxis VTE Prophylaxis Intervention: heparin Lines/Catheters IV C[facility]ter Type (from [facility]): Peripheral IV Urinary Cath still in place: Yes Reason Cath still needed: other (indicate) Assessment/Plan Chief Complaint/Hosp Course 1. Chest pain. Acute coronary syndrome ruled out. Troponins negative so far. The patient's 2D echocardiogram showing ejection fraction of 55%. The patient will be continued on aspirin. Cardiology following the patient. 2. Essential hypertension. Currently hypotensive. Was started on pressors. 3. Chronic obstructive pulmonary disease. The patient on inhaled bronchodilators. Pulmonology following. 4. Acute respiratory failure. Acute on chronic. Hypoxic and hypercapnic. Got intubated on 09/07/2016 because of worsening respiratory distress. Ventilator management as per Pulmonary. 5. Atrial fibrillation. Rate controlled. Unable to anticoagulate because of underlying thrombocytopenia. 6. Alcoholic liver disease. Continue diuretics. The patient will also be continued on lactulose because of underlying hyperammonemia. 7. Thrombocytopenia. Most probably from acute alcoholic liver disease. Monitor for any bleeding. 8. Hyponatremia. The patient's sodium will be increased gradually. Worsening. Nephrology following. S/P 1 dose of vasopressin antagonist on 09/07/2016. 9. Alcohol abuse. The patient's last drink was on the day prior to hospitalization. The patient will be maintained on a daily thiamine. Status post Librium taper. 10. Possible aspiration with aspiration pneumonia. The patient was started on empiric antibiotics including coverage for anaerobes. 11. Acute on chronic CHF exacerbation. Diastolic dysfunction. Continue diuretics if blood pressure allows. 12. Fluid, electrolytes and nutrition. NPO. 13. Deep venous thrombosis prophylaxis. Subcutaneous heparin. Will hold this if there is worsening thrombocytopenia. 14. Gastrointestinal prophylaxis. H2 receptor blockers. 15. Plan. Continue ICU monitoring. Careful diuresis. Replete potassium. Continue lactulose. Ventilator weaning as per Pulmonary. Case discussed with Dr. Burr. Critical care time: 35 minutes. Problems: Subjective 24 Hr Interval Summary Free Text/Dictation The patient remans intubated. On Propofol. Exam/Review of Systems Vital Signs Vitals Vital Signs Date Time Temp Pulse Resp B/P Pulse Ox O2 Delivery O2 Flow Rate FiO2 09/08/16 07:15 105 20 101/66 95 09/08/16 05:31 100 6/19/17 04:00 98.6 09/07/16 21:45 Mechanical Ventilator 09/07/16 18:21 4.5 Intake and Output 09/07/16 09/07/16 09/08/16 15:00 23:00 07:00 Intake Total 11 ml 998.845 ml 857 ml Output Total 2125 ml 845 ml Balance 11 ml -1126.155 ml 12 ml Exam GENERAL: This is a morbidly obese male patient lying in orally intubated. HEENT: Head normocephalic and atraumatic. Eyes: Anicteric sclerae. Conjunctivae clear. ENT: Nasal septum is midline. NGT in place. Oral mucosa is dry.Orally intubated. NECK: Short with increased neck circumference. RESPIRATORY: Bilaterally diminished breath sounds. Orally intubated. On AC mode ventilation. CARDIAC: Irregularly irregular rhythm. S1 and S2 heard. ABDOMEN: Obese. Bowel sounds hypoactive. GENITOURINARY: Deferred. EXTREMITIES: No cyanosis, no clubbing. Bilateral lower extremity 2+ pitting edema. Peripheral pulses are palpable. NEUROLOGIC: The patient is sedated. Results Result Diagram: 09/08/16 0626 09/08/16 0626 Results 24 hrs Laboratory Tests Test 09/07/16 10:31 09/07/16 12:33 09/07/16 12:42 09/07/16 14:35 Blood Gas Specimen Source Blood arterial Blood arterial Blood arterial Arterial Blood Date Drawn 09/07/2016 10:00:51 AM 09/07/2016 12:42:00 PM 09/07/2016 2:40:33 PM Arterial Blood pH (Temp corrected) 7.317 L 7.288 *L 7.401 Arterial Blood pCO2 (Temp correct) 77.2 H 85.4 *H 72.8 H Arterial Blood pO2 (Temp corrected) 36.8 *L 92.9 108.2 H Arterial Blood HCO3 38.6 H 40.0 H 44.2 *H Arterial Blood Base Excess 9.0 H 9.2 H 15.1 H Arterial Blood Oxygen Saturation 66.5 L 96.4 98.1 H Dilshad Test ACCEPTAB ACCEPTAB ACCEPTAB Arterial Blood Gas Puncture Site Right Radial Right Radial Right Radial Arterial Blood Carboxyhemoglobin 1.8 1.8 1.3 Arterial Blood Methemoglobin 0.2 0.3 0.3 Blood Gas A-a O2 Differential 108.4 H 167.5 H 532.0 H Oxyhemoglobin Percent 65.2 L 94.4 96.5 Total Hemoglobin 15.2 15.5 15.8 Blood Gas Temperature 37.0 37.0 37.0 Blood Gas Modality NASAL CANNULA MASK - BIPAP VENT - AC FiO2 33.0 50.0 100.0 Blood Gas Critical Value Read Back FAISAL STOVALL RN. DR. DYAN ZAIDI MD Blood Gas Notified Whom RT RT RT Blood Gas Notified Time 09/07/2016 11:01:31 AM 09/07/2016 5:01:00 PM 09/07/2016 2:51:56 PM Bedside Glucose 107 Blood Gas Respiration Rate 16.0 20.0 Blood Gas Actual Respiration Rate 24 23 Blood Gas Pressure Support 10 Blood Gas IPAP/EPAP Ratio 18/8 Blood Gas Tidal Volume 650.0 Blood Gas Low PEEP Setting 5.0 Test 09/08/16 04:00 09/08/16 06:26 Urine Color LT. YELLOW Urine Clarity CLEAR Urine pH 8.0 Urine Specific [place] 1.010 Urine Ketones NEGATIVE Urine Nitrite NEGATIVE Urine Bilirubin NEGATIVE Urine Urobilinogen 2.0 E.U./dL H Urine Leukocyte Esterase NEGATIVE Urine Microscopic RBC 25-50 Urine Microscopic WBC 0-2 Urine Hemoglobin 2+ H Urine Glucose NEGATIVE Urine Total Protein NEGATIVE White Blood Count 11.5 H Red Blood Count 4.91 Hemoglobin 14.5 Hematocrit 42.7 Mean Corpuscular Volume 87.0 Mean Corpuscular Hemoglobin 29.5 Mean Corpuscular Hemoglobin Concent 34.0 Red Cell Distribution Width 15.0 H Platelet Count 118 #L Mean Platelet Volume 9.5 Neutrophils % 67.2 Lymphocytes % 14.1 L Monocytes % 17.2 H Eosinophils % 0.4 Basophils % 0.4 Nucleated Red Blood Cells % 0.0 Neutrophils # 7.7 H Lymphocytes # 1.6 Monocytes # 2.0 H Eosinophils # 0.1 Basophils # 0.1 Nucleated Red Blood Cells # 0.0 Sodium Level 131 L Potassium Level 3.4 L Chloride Level 87 L Carbon Dioxide Level 38 H Anion Gap 9 Blood Urea Nitrogen 15 Creatinine 0.71 Glucose Level 137 Calcium Level 9.4 Total Bilirubin 1.8 H Direct Bilirubin 0.00 Indirect Bilirubin 1.8 H Aspartate Amino Transf (AST/SGOT) 38 Alanine Aminotransferase (ALT/SGPT) 40 Alkaline Phosphatase 88 Total Protein 6.8 Albumin 3.7 Globulin 3.10 Albumin/Globulin Ratio 1.19 Medications Medications Current Medications Morphine Sulfate (morphine) 3 mg Q4H PRN IV PAIN; Start 08/31/16 at 01:00 Ondansetron HCl (Zofran Inj) 4 mg Q6H PRN IV NAUSEA AND/OR VOMITING; Start 02/06 at 02:00 Morphine Sulfate (morphine) 2 mg Q4H PRN IV PAIN LEVEL 7-10; Start 08/31/16 at 02:00 Aspirin (Halfprin) 81 mg DAILY PO Last administered on 09/07/16 08:17; Admin Dose 81 MG; Start 08/31/16 at 09:00 Atorvastatin Calcium (Lipitor) 10 mg QHS PO Last administered on 09/07/16 21: 26; Admin Dose 10 MG; Start 08/31/16 at 21:00 Ferrous Sulfate (Ferrous Sulfate (Ec)) 325 mg DAILY PO Last administered on 08:17; Admin Dose 325 MG; Start 08/31/16 at 09:00 Folic Acid (Folic Acid) 1 mg DAILY PO Last administered on 09/07/16 08:18; Admin Dose 1 MG; Start 08/31/16 at 09:00 Losartan Potassium (Cozaar) 50 mg BID PO Last administered on 09/07/16 08:18; Admin Dose 50 MG; Start 08/31/16 at 09:00 Multivitamins Therapeutic (Theragran) 1 tab DAILY PO Last administered on 08:17; Admin Dose 1 TAB; Start 08/31/16 at 09:00 Potassium Chloride (Klor-Con 10) 10 meq DAILY PO Last administered on 08:18; Admin Dose 10 MEQ; Start 08/31/16 at 09:00 Spironolactone (Aldactone) 50 mg DAILY PO Last administered on 09/07/16 08:17 ; Admin Dose 50 MG; Start 08/31/16 at 09:00 Thiamine HCl (Vitamin B1) 100 mg DAILY PO Last administered on 09/07/16 08:16 ; Admin Dose 100 MG; Start 08/31/16 at 09:00 Famotidine (Pepcid) 20 mg BID PO Last administered on 09/07/16 21:26; Admin Dose 20 MG; Start 09/01/16 at 21:00 Digoxin (Digoxin) 0.125 mg DAILY@13 PO Last administered on 09/06/16 12:38; Admin Dose 0.125 MG; Start 09/05/16 at 13:00 Diltiazem HCl 120 mg 120 mg BID PO Last administered on 09/07/16 09:00; Admin Dose 120 MG; Start 09/04/16 at 11:00 Propofol 100 ml @ 4.695 mls/ hr Q12H IV Last administered on 09/08/16 05:59; Admin Dose 46.95 MLS/HR; Start 09/07/16 at 13:30 Piperacillin Sod/ Tazobactam Sod (Zosyn 3.375gm/ 100 ml (Pmx)) 100 ml @ 200 mls /hr Q6 IVPB Last administered on 09/08/16 05:58; Admin Dose 200 MLS/HR; Start 09/07/16 at 16:00 Lactulose 20 gm 20 gm Q8 NGT Last administered on 09/08/16 05:59; Admin Dose 20 GM; Start 09/07/16 at 16:00 Norepinephrine/ Dextrose (Levophed/D5W) 500 ml @ 1.87 mls/hr TITRATE IV Last administered on 09/08/16 01:09; Admin Dose 18.75 MLS/HR; Start 09/07/16 at 17: 00 TRUDY HILTON NP Sep 08, 2016 07:35 TRUDY HILTON NP Sep 08, 2016 07:35
[2016-09-08 07:58] LABS: AADO2 Arterial 593.2 mmHg (7.0-24.0); Allen Test ACCEPTAB; Arterial Base Excess 12.3 mmol/L (-3.0-3); Arterial COHb 0.6 % (0.0-3.0); Arterial HCO3 35.2 mmol/L (22.0-26.0); Arterial MetHb 0.3 % (0.0-1.5); Arterial Total Hemglobin 15.9 g/dl (12.0-18.0); MODE VENT - AC
--- NOTE | 2016-09-08 07:59 | RADRPT ---
PROCEDURE: XR Chest. CLINICAL INDICATION: Respiratory failure TECHNIQUE: An AP view of the chest was obtained. COMPARISON: Chest x-ray dated 09/07/2016 FINDINGS: The endotracheal tube tip is approximately 5.6 cm above the amber. The tip of the enteric tube ex tends below the left diaphragm. There is prominence of the interstitial and central pulmonary vascular markings with bilateral basi lar consolidation and small bilateral pleural effusions. No pneumothorax is seen. The cardiomedia stinal silhouette is mildly enlarged . Calcifications are seen within the aortic arch. The osseous structures demonstrate senescent changes. IMPRESSION: 1. Bilateral basilar consolidation may reflect atelectasis or pneumonia. Findings are new on the r ight when compared to the prior examination. 2. Small bilateral pleural effusions, increased from prior examination. 3. Findings suggestive of pulmonary vascular congestion/interstitial edema, not significantly reeder ged. 4. Mild cardiomegaly and aortic atherosclerosis. 5. Tubes and lines, as described above. RPTAT: HH .Geeta Escoto MD, MD Date Time Electronically viewed and signed by .Geeta Escoto MD, MD on 09/08/2016 07:58 .G/
[2016-09-08] MEDS: MULTIVITAMINS THERAPEUTIC TAB PO SCH (08:54)
[2016-09-08] MEDS: ASPIRIN (EC) 81 MG TAB PO SCH (08:54)
[2016-09-08] MEDS: FERROUS SULFATE (EC) 325 MG TAB PO SCH (08:54)
[2016-09-08] MEDS: FOLIC ACID 1 MG TAB PO SCH (08:54)
[2016-09-08] MEDS: THIAMINE 100 MG TAB PO SCH (08:54)
[2016-09-08] MEDS: POTASSIUM CHLORIDE (SR) 10 MEQ TAB PO SCH (08:54)
[2016-09-08] MEDS: FAMOTIDINE 20 MG TAB PO SCH ×2 (08:54→21:04)
[2016-09-08] MEDS: DILTIAZEM (CD) 120 MG CAP PO SCH ×2 (09:00→21:00)
[2016-09-08] MEDS: SPIRONOLACTONE 50 MG TAB PO SCH (09:00)
[2016-09-08] MEDS: LOSARTAN 50 MG TAB PO SCH ×2 (09:00→21:00)
[2016-09-08] MEDS: ALBUTEROL 18 GM INHALER INH SCH ×3 (09:21→19:28)
[2016-09-08] MEDS ORDERED: LIDOCAINE 1% (MPF) 5 ML VIAL SC ONE (10:30)
--- NOTE | 2016-09-08 11:11 | CONS ---
Date/Time of Note Date/Time of Note DATE: 09/08/16 TIME: 11:06 Assessment/Plan Assessment/Plan Additional Assessment/Plan Ventilator setting; AC of 20, tidal volume 650, PEEP of 5, 100% FiO2. Chest x-ray was reviewed from today which is showing marked improvement in left lung atelectasis, patient however has mild bibasilar atelectasis and possibly right lower lobe infiltrate now. Patient currently on propofol at 44 mics per kilo per minute, Levophed at 16 mics per minute. Assessment recommendations; 1. Patient admitted for hypoxemic and hypercapnic respiratory failure from underlying obesity/hypoventilation syndrome and possibly underlying sleep apnea. Patient developed respiratory failure due to extensive mucus plugging involving left mainstem bronchus leading to respiratory failure, with marked radiological improvement. 2. Bilateral pneumonia with bibasilar atelectasis. 3. Hypotension. 4. Mild thrombocytopenia. Continue current supportive care. Ventilator settings have been adjusted, patient's tidal volume has been decreased to 550. Will start on tube feeding. 35 minutes of critical care time was spent evaluating the patient. Consultation Date/Type/Reason Admit Date/Time Aug 30, 2016 at 23:34 Type of Consultation: Pulmonary 24 HR Interval Summary Free Text/Dictation Patient's condition remains critical. Had to be transferred to ICU yesterday and was intubated. Chest x-ray at that time showed almost complete left lung atelectasis likely from mucous plugging. Patient also been hypotensive and requiring pressor support. General exam; middle-aged male, morbidly obese, orally intubated, sedated. Exam/Review of Systems Vital Signs Vitals Vital Signs Date Time Temp Pulse Resp B/P Pulse Ox O2 Delivery O2 Flow Rate FiO2 09/08/16 08:00 99.5 99 20 112/75 94 Mechanical Ventilator 09/08/16 05:31 100 09/07/16 18:21 4.5 Intake and Output 09/07/16 09/07/16 09/08/16 15:00 23:00 07:00 Intake Total 11 ml 998.845 ml 918.005 ml Output Total 2125 ml 845 ml Balance 11 ml -1126.155 ml 73.005 ml Exam HEENT exam; supple neck, no JVD. No lymphadenopathy. Midline trachea. No thyromegaly. Patient is orally intubated. Has fair dentition. Pupils are small bilaterally. Chest examination; diminished but clear vessel. S1-S2 audible, no murmurs. Regular rhythm. Abdomen examination; soft, no organomegaly. Bowel sounds audible. Extremity exam is; no peripheral edema. Pulses 1+ bilaterally. [employer] examination; patient is sedated. Results Result Diagram: 09/08/16 0626 09/08/16 0626 Results 24 hrs Laboratory Tests Test 09/07/16 12:33 09/07/16 12:42 09/07/16 14:35 09/08/16 04:00 Bedside Glucose 107 Blood Gas Specimen Source Blood arterial Blood arterial Arterial Blood Date Drawn 09/07/2016 12:42:00 PM 09/07/2016 2:40:33 PM Arterial Blood pH (Temp corrected) 7.288 *L 7.401 Arterial Blood pCO2 (Temp correct) 85.4 *H 72.8 H Arterial Blood pO2 (Temp corrected) 92.9 108.2 H Arterial Blood HCO3 40.0 H 44.2 *H Arterial Blood Base Excess 9.2 H 15.1 H Arterial Blood Oxygen Saturation 96.4 98.1 H Dilshad Test ACCEPTAB ACCEPTAB Arterial Blood Gas Puncture Site Right Radial Right Radial Arterial Blood Carboxyhemoglobin 1.8 1.3 Arterial Blood Methemoglobin 0.3 0.3 Blood Gas A-a O2 Differential 167.5 H 532.0 H Oxyhemoglobin Percent 94.4 96.5 Total Hemoglobin 15.5 15.8 Blood Gas Temperature 37.0 37.0 Blood Gas Respiration Rate 16.0 20.0 Blood Gas Actual Respiration Rate 24 23 Blood Gas Modality MASK - BIPAP VENT - AC FiO2 50.0 100.0 Blood Gas Pressure Support 10 Blood Gas IPAP/EPAP Ratio 07/11 Blood Gas Critical Value Read Back DR. DYAN ZAIDI MD Blood Gas Notified Whom RT RT Blood Gas Notified Time 09/07/2016 5:01:00 PM 09/07/2016 2:51:56 PM Blood Gas Tidal Volume 650.0 Blood Gas Low PEEP Setting 5.0 Urine Color LT. YELLOW Urine Clarity CLEAR Urine pH 8.0 Urine Specific [place] 1.010 Urine Ketones NEGATIVE Urine Nitrite NEGATIVE Urine Bilirubin NEGATIVE Urine Urobilinogen 2.0 E.U./dL H Urine Leukocyte Esterase NEGATIVE Urine Microscopic RBC 25-50 Urine Microscopic WBC 0-2 Urine Hemoglobin 2+ H Urine Glucose NEGATIVE Urine Total Protein NEGATIVE Test 09/08/16 06:26 09/08/16 07:00 White Blood Count 11.5 H Red Blood Count 4.91 Hemoglobin 14.5 Hematocrit 42.7 Mean Corpuscular Volume 87.0 Mean Corpuscular Hemoglobin 29.5 Mean Corpuscular Hemoglobin Concent 34.0 Red Cell Distribution Width 15.0 H Platelet Count 118 #L Mean Platelet Volume 9.5 Neutrophils % 67.2 Lymphocytes % 14.1 L Monocytes % 17.2 H Eosinophils % 0.4 Basophils % 0.4 Nucleated Red Blood Cells % 0.0 Neutrophils # 7.7 H Lymphocytes # 1.6 Monocytes # 2.0 H Eosinophils # 0.1 Basophils # 0.1 Nucleated Red Blood Cells # 0.0 Sodium Level 131 L Potassium Level 3.4 L Chloride Level 87 L Carbon Dioxide Level 38 H Anion Gap 9 Blood Urea Nitrogen 15 Creatinine 0.71 Glucose Level 137 Calcium Level 9.4 Phosphorus Level 1.6 #L Magnesium Level 2.0 Total Bilirubin 1.8 H Direct Bilirubin 0.00 Indirect Bilirubin 1.8 H Aspartate Amino Transf (AST/SGOT) 38 Alanine Aminotransferase (ALT/SGPT) 40 Alkaline Phosphatase 88 Ammonia 44 H Total Protein 6.8 Albumin 3.7 Globulin 3.10 Albumin/Globulin Ratio 1.19 Blood Gas Specimen Source Blood arterial Arterial Blood Date Drawn 09/08/2016 7:30:53 AM Arterial Blood pH (Temp corrected) 7.575 *H Arterial Blood pCO2 (Temp correct) 38.9 Arterial Blood pO2 (Temp corrected) 80.9 Arterial Blood HCO3 35.2 H Arterial Blood Base Excess 12.3 H Arterial Blood Oxygen Saturation 96.9 Dilshad Test ACCEPTAB Arterial Blood Gas Puncture Site Right Radial Arterial Blood Carboxyhemoglobin 0.6 Arterial Blood Methemoglobin 0.3 Blood Gas A-a O2 Differential 593.2 H Oxyhemoglobin Percent 96.0 Total Hemoglobin 15.9 Blood Gas Temperature 37.0 Blood Gas Respiration Rate 20.0 Blood Gas Actual Respiration Rate 20 Blood Gas Modality VENT - AC FiO2 100.0 Blood Gas Tidal Volume 650.0 Blood Gas Low PEEP Setting 5.0 Blood Gas Critical Value Read Back Enoc TERESA RN Blood Gas Notified Whom ANDREWD Blood Gas Notified Time 09/08/2016 7:56:39 AM Medications Medications Current Medications Morphine Sulfate (morphine) 3 mg Q4H PRN IV PAIN; Start 08/31/16 at 01:00 Ondansetron HCl (Zofran Inj) 4 mg Q6H PRN IV NAUSEA AND/OR VOMITING; Start 02/06 at 02:00 Morphine Sulfate (morphine) 2 mg Q4H PRN IV PAIN LEVEL 7-10; Start 08/31/16 at 02:00 Aspirin (Halfprin) 81 mg DAILY PO Last administered on 09/08/16 08:54; Admin Dose 81 MG; Start 08/31/16 at 09:00 Atorvastatin Calcium (Lipitor) 10 mg QHS PO Last administered on 09/07/16 21: 26; Admin Dose 10 MG; Start 08/31/16 at 21:00 Ferrous Sulfate (Ferrous Sulfate (Ec)) 325 mg DAILY PO Last administered on 08:54; Admin Dose 325 MG; Start 08/31/16 at 09:00 Folic Acid (Folic Acid) 1 mg DAILY PO Last administered on 09/08/16 08:54; Admin Dose 1 MG; Start 08/31/16 at 09:00 Losartan Potassium (Cozaar) 50 mg BID PO Last administered on 09/07/16 08:18; Admin Dose 50 MG; Start 08/31/16 at 09:00 Multivitamins Therapeutic (Theragran) 1 tab DAILY PO Last administered on 08:54; Admin Dose 1 TAB; Start 08/31/16 at 09:00 Potassium Chloride (Klor-Con 10) 10 meq DAILY PO Last administered on 08:54; Admin Dose 10 MEQ; Start 08/31/16 at 09:00 Spironolactone (Aldactone) 50 mg DAILY PO Last administered on 09/07/16 08:17 ; Admin Dose 50 MG; Start 08/31/16 at 09:00 Thiamine HCl (Vitamin B1) 100 mg DAILY PO Last administered on 09/08/16 08:54 ; Admin Dose 100 MG; Start 08/31/16 at 09:00 Famotidine (Pepcid) 20 mg BID PO Last administered on 09/08/16 08:54; Admin Dose 20 MG; Start 09/01/16 at 21:00 Digoxin (Digoxin) 0.125 mg DAILY@13 PO Last administered on 09/06/16 12:38; Admin Dose 0.125 MG; Start 09/05/16 at 13:00 Diltiazem HCl 120 mg 120 mg BID PO Last administered on 09/07/16 09:00; Admin Dose 120 MG; Start 09/04/16 at 11:00 Propofol 100 ml @ 4.695 mls/ hr Q12H IV Last administered on 09/08/16 08:53; Admin Dose 42.255 MLS/HR; Start 09/07/16 at 13:30 Piperacillin Sod/ Tazobactam Sod (Zosyn 3.375gm/ 100 ml (Pmx)) 100 ml @ 200 mls /hr Q6 IVPB Last administered on 09/08/16 05:58; Admin Dose 200 MLS/HR; Start 09/07/16 at 16:00 Lactulose 20 gm 20 gm Q8 NGT Last administered on 09/08/16 05:59; Admin Dose 20 GM; Start 09/07/16 at 16:00 Norepinephrine 16 mg/Dextrose 500 ml @ 1.87 mls/hr TITRATE IV Last administered on 09/08/16 01:09; Admin Dose 18.75 MLS/HR; Start 09/07/16 at 17: 00 Potassium Chloride (KCl 40 MEQ/250 ML NS) 250 ml @ 62.5 mls/hr ONCE ONCE IVPB Last administered on 09/08/16 08:53; Admin Dose 62.5 MLS/HR; Start 09/08/16 at 07:30; Stop 09/08/16 at 11:29 ABIMAEL ZAIDI 19, 2017 11:11
[2016-09-08] MEDS: DIGOXIN 0.125 MG TAB PO SCH (12:12)
--- NOTE | 2016-09-08 15:55 | RADRPT ---
PROCEDURE: XR Chest. CLINICAL INDICATION: Check PICC line position. TECHNIQUE: Single frontal view. COMPARISON: 09/08/2016. 0600 hours. FINDINGS: There is a right arm PICC line with the tip in the cavoatrial junction region. The endotracheal tub e and nasogastric tube remain in satisfactory position. Pulmonary edema and bibasilar atelectasis a re unchanged. The heart is enlarged. There are moderate bilateral pleural effusions. There is no pneumothorax. IMPRESSION: 1. Satisfactory position of right arm PICC line. 2. No other change from the prior study done earlier the same day. RPTAT: QQ .Silverio Conway MD, MD Date Time Electronically viewed and signed by .Silverio Conway MD, MD on 09/08/2016 15:55 .R/
--- NOTE | 2016-09-08 16:40 | RADRPT ---
PROCEDURE: Ultrasound guidance for placement of needle in right upper extremity vein. CLINICAL INDICATION: Venous access. TECHNIQUE: Limited sonography of the right upper extremity was performed. Ultrasound images were recorded and stored in the patient's medical record. COMPARISON: None. FINDINGS: The ultrasound images demonstrate a patent right upper extremity vein. The PICC line was inserted b y the PICC line nurse. IMPRESSION: 1. Ultrasound guidance for a needle placement in a right upper extremity vein. 2. The visualized right upper extremity vein is patent. RPTAT: QQ .Silverio Conway MD, MD Date Time Electronically viewed and signed by .Silverio Conway MD, MD on 09/08/2016 16:40 .R/
[2016-09-08] MEDS ORDERED: SOD CHLORIDE 0.9% 100 ML ONE (17:09)
--- NOTE | 2016-09-08 18:22 | CONS ---
Date/Time of Note Date/Time of Note DATE: 09/08/16 TIME: 18:12 Assessment/Plan Assessment/Plan Chief Complaint/Hosp Course Pt had resp acidosis with Metabolic alkalosis, now adjusted by Vent support real pH arrives in Alkalosis range, therefore, I'd start pt on Diamox & monitor K closely Problems: Additional Assessment/Plan Keep off diuretics which may worsen ALkalosis Continue monitoring Lytes closely. Cont'd Hospitalization Reason: Replace K via NG, replace PO4. SNa has improved. Will leave off diuretics Consultation Date/Type/Reason Admit Date/Time Aug 30, 2016 at 23:34 Initial Consult Date Type of Consultation: Renal 24 HR Interval Summary Free Text/Dictation Pt is sedated & intubated, without any communication Subjective hx not possible: pt non-verbal Constitutional: disoriented Exam/Review of Systems Vital Signs Vitals Vital Signs Date Time Temp Pulse Resp B/P Pulse Ox O2 Delivery O2 Flow Rate FiO2 09/08/16 18:00 110 22 105/76 93 Mechanical Ventilator 09/08/16 17:00 70 09/08/16 16:00 99.1 09/07/16 18:21 4.5 Intake and Output 09/07/16 09/07/16 09/08/16 15:00 23:00 07:00 Intake Total 11 ml 998.845 ml 918.005 ml Output Total 2125 ml 845 ml Balance 11 ml -1126.155 ml 73.005 ml Exam Obese male on Vaso pressor agents Constitutional: alert, obese, oriented, well developed Psych: nl mood/affect, no complaints Head: atraumatic, normocephalic Eyes: EOMI, PERRL, nl conjunctiva, nl lids, nl sclera ENMT: intubated, nl external ears & nose, nl lips & teeth, nl nasal mucosa & septum Neck: non-tender, supple Respiratory: clear to auscultation, normal air movement Cardiovascular: nl pulses, regular rate and rhythm Gastrointestinal: distended, nl liver, spleen, non-tender, soft Musculoskeletal: nl extremities to inspection, nl gait and stance Extremities: normal pulses Neurological: PROCUREMENT INTERN II-XII intact, nl mental status, nl speech, nl strength Skin: nl turgor, No rash or lesions Lymph: nl lymph nodes Results Sna has improved, note high total CO2, pH above 7.55 Result Diagram: 09/08/16 0626 09/08/16 0626 Results 24 hrs Laboratory Tests Test 09/08/16 04:00 09/08/16 06:26 09/08/16 07:00 Urine Color LT. YELLOW Urine Clarity CLEAR Urine pH 8.0 Urine Specific [place] 1.010 Urine Ketones NEGATIVE Urine Nitrite NEGATIVE Urine Bilirubin NEGATIVE Urine Urobilinogen 2.0 E.U./dL H Urine Leukocyte Esterase NEGATIVE Urine Microscopic RBC 25-50 Urine Microscopic WBC 0-2 Urine Hemoglobin 2+ H Urine Glucose NEGATIVE Urine Total Protein NEGATIVE White Blood Count 11.5 H Red Blood Count 4.91 Hemoglobin 14.5 Hematocrit 42.7 Mean Corpuscular Volume 87.0 Mean Corpuscular Hemoglobin 29.5 Mean Corpuscular Hemoglobin Concent 34.0 Red Cell Distribution Width 15.0 H Platelet Count 118 #L Mean Platelet Volume 9.5 Neutrophils % 67.2 Lymphocytes % 14.1 L Monocytes % 17.2 H Eosinophils % 0.4 Basophils % 0.4 Nucleated Red Blood Cells % 0.0 Neutrophils # 7.7 H Lymphocytes # 1.6 Monocytes # 2.0 H Eosinophils # 0.1 Basophils # 0.1 Nucleated Red Blood Cells # 0.0 Sodium Level 131 L Potassium Level 3.4 L Chloride Level 87 L Carbon Dioxide Level 38 H Anion Gap 9 Blood Urea Nitrogen 15 Creatinine 0.71 Glucose Level 137 Calcium Level 9.4 Phosphorus Level 1.6 #L Magnesium Level 2.0 Total Bilirubin 1.8 H Direct Bilirubin 0.00 Indirect Bilirubin 1.8 H Aspartate Amino Transf (AST/SGOT) 38 Alanine Aminotransferase (ALT/SGPT) 40 Alkaline Phosphatase 88 Ammonia 44 H Total Protein 6.8 Albumin 3.7 Globulin 3.10 Albumin/Globulin Ratio 1.19 Blood Gas Specimen Source Blood arterial Arterial Blood Date Drawn 09/08/2016 7:30:53 AM Arterial Blood pH (Temp corrected) 7.575 *H Arterial Blood pCO2 (Temp correct) 38.9 Arterial Blood pO2 (Temp corrected) 80.9 Arterial Blood HCO3 35.2 H Arterial Blood Base Excess 12.3 H Arterial Blood Oxygen Saturation 96.9 Dilshad Test ACCEPTAB Arterial Blood Gas Puncture Site Right Radial Arterial Blood Carboxyhemoglobin 0.6 Arterial Blood Methemoglobin 0.3 Blood Gas A-a O2 Differential 593.2 H Oxyhemoglobin Percent 96.0 Total Hemoglobin 15.9 Blood Gas Temperature 37.0 Blood Gas Respiration Rate 20.0 Blood Gas Actual Respiration Rate 20 Blood Gas Modality VENT - AC FiO2 100.0 Blood Gas Tidal Volume 650.0 Blood Gas Low PEEP Setting 5.0 Blood Gas Critical Value Read Back R MALICK DECKER Blood Gas Notified Whom JLD Blood Gas Notified Time 09/08/2016 7:56:39 AM Medications Medications Current Medications Morphine Sulfate (morphine) 3 mg Q4H PRN IV PAIN; Start 08/31/16 at 01:00 Ondansetron HCl (Zofran Inj) 4 mg Q6H PRN IV NAUSEA AND/OR VOMITING; Start 02/06 at 02:00 Morphine Sulfate (morphine) 2 mg Q4H PRN IV PAIN LEVEL 7-10; Start 08/31/16 at 02:00 Aspirin (Halfprin) 81 mg DAILY PO Last administered on 09/08/16 08:54; Admin Dose 81 MG; Start 08/31/16 at 09:00 Atorvastatin Calcium (Lipitor) 10 mg QHS PO Last administered on 09/07/16 21: 26; Admin Dose 10 MG; Start 08/31/16 at 21:00 Ferrous Sulfate (Ferrous Sulfate (Ec)) 325 mg DAILY PO Last administered on 08:54; Admin Dose 325 MG; Start 08/31/16 at 09:00 Folic Acid (Folic Acid) 1 mg DAILY PO Last administered on 09/08/16 08:54; Admin Dose 1 MG; Start 08/31/16 at 09:00 Losartan Potassium (Cozaar) 50 mg BID PO Last administered on 09/07/16 08:18; Admin Dose 50 MG; Start 08/31/16 at 09:00 Multivitamins Therapeutic (Theragran) 1 tab DAILY PO Last administered on 08:54; Admin Dose 1 TAB; Start 08/31/16 at 09:00 Potassium Chloride (Klor-Con 10) 10 meq DAILY PO Last administered on 08:54; Admin Dose 10 MEQ; Start 08/31/16 at 09:00 Spironolactone (Aldactone) 50 mg DAILY PO Last administered on 09/07/16 08:17 ; Admin Dose 50 MG; Start 08/31/16 at 09:00 Thiamine HCl (Vitamin B1) 100 mg DAILY PO Last administered on 09/08/16 08:54 ; Admin Dose 100 MG; Start 08/31/16 at 09:00 Famotidine (Pepcid) 20 mg BID PO Last administered on 09/08/16 08:54; Admin Dose 20 MG; Start 09/01/16 at 21:00 Digoxin (Digoxin) 0.125 mg DAILY@13 PO Last administered on 09/08/16 12:12; Admin Dose 0.125 MG; Start 09/05/16 at 13:00 Diltiazem HCl 120 mg 120 mg BID PO Last administered on 09/07/16 09:00; Admin Dose 120 MG; Start 09/04/16 at 11:00 Propofol 100 ml @ 4.695 mls/ hr Q12H IV Last administered on 09/08/16 17:54; Admin Dose 16.902 MLS/HR; Start 09/07/16 at 13:30 Piperacillin Sod/ Tazobactam Sod (Zosyn 3.375gm/ 100 ml (Pmx)) 100 ml @ 200 mls /hr Q6 IVPB Last administered on 09/08/16 17:54; Admin Dose 200 MLS/HR; Start 09/07/16 at 16:00 Lactulose 20 gm 20 gm Q8 NGT Last administered on 09/08/16 14:49; Admin Dose 20 GM; Start 09/07/16 at 16:00 Norepinephrine/ Dextrose (Levophed/D5W) 500 ml @ 1.87 mls/hr TITRATE IV Last administered on 09/08/16 01:09; Admin Dose 18.75 MLS/HR; Start 09/07/16 at 17: 00 Acetazolamide (Diamox) 250 mg TID NGT ; Start 09/08/16 at 21:00 Sodium Phosphate (Kphos Neutral) 250 mg TID PO ; Start 09/08/16 at 21:00; Stop 09/10/16 at 20:59 IV Flush (NS 10 ml) 10 ml PRN PRN IV IV PROTOCOL; Start 09/08/16 at 17:00 SHANDRA TIJERINA MD Sep 08, 2016 18:22
[2016-09-08] MEDS: ATORVASTATIN 10 MG TAB PO SCH (21:03)
[2016-09-08] MEDS: SOD PHOS MONO/DIBAS 250 MG TAB PO SCH (21:03)
[2016-09-08] MEDS: POTASSIUM CHLORIDE (SR) 20 MEQ TAB PO SCH (21:03)
[2016-09-08] MEDS: ACETAZOLAMIDE 250 MG TAB NGT SCH (21:03)
[2016-09-09] VITALS (99 sets, daily range): BP systolic 84–127; BP diastolic 55–90; PULSE 84–117; RESP 12–30
[2016-09-09] MEDS: PIPER-TAZO 3.375 GM IV (PMX) 100 ML IVPB SCH ×4 (00:58→17:14)
[2016-09-09] MEDS: ACETYLCYSTEINE 20% 4 ML VIAL NEB SCH (01:42)
[2016-09-09] MEDS: IPRATROPIUM (HFA) 12.9 GM INHALER INH SCH ×4 (01:46→19:16)
[2016-09-09] MEDS: PROPOFOL 100 ML IV SCH ×4 (01:51→20:22)
[2016-09-09 06:03] LABS: ALBUMIN 3.3 g/dl (3.3-4.9); ALBUMIN/GLOBULIN RATIO 1.1; BILIRUBIN,INDIRECT 1.6 mg/dl (0-1.1); BILIRUBIN,TOTAL 1.6 mg/dl (0.2-1.3); CALCIUM 9.3 mg/dl (8.4-10.2); CREATININE 0.78 mg/dl (0.61-1.24); POTASSIUM 3.4 mmol/L (3.5-5.1); TOTAL PROTEIN 6.3 g/dl (6.1-8.1)
[2016-09-09 06:04] LABS: MAGNESIUM 1.9 mg/dl (1.7-2.5); PHOSPHORUS 3.8 mg/dl (2.5-4.9)
[2016-09-09 06:18] LABS: ADD SCAN DIFF NO
[2016-09-09] MEDS: LACTULOSE 30ML CUP NGT SCH ×3 (06:44→21:15)
[2016-09-09] MEDS: ALBUTEROL 18 GM INHALER INH SCH ×3 (07:19→19:16)
[2016-09-09 07:47] LABS: BASOPHIL # 0.1 10^3/ul (0.0-0.1); BASOPHILS % 0.5 % (0.0-2.0); EOSINOPHILS # 0.1 10^3/ul (0.0-0.5); EOSINOPHILS % 0.9 % (0.0-7.0); HEMATOCRIT 41.3 % (42.0-52.0); HEMOGLOBIN 13.9 g/dl (14.0-18.0); LYMPHOCYTES # 1.5 10^3/ul (0.8-2.9); LYMPHOCYTES % 13.1 % (15.0-51.0); MEAN CORPUSCULAR HEMOGLOBIN 30.2 pg (29.0-33.0); MEAN CORPUSCULAR HGB CONC 33.7 g/dl (32.0-37.0); MEAN CORPUSCULAR VOLUME 89.8 fl (82.0-101.0); MEAN PLATELET VOLUME 10.4 fl (7.4-10.4); MONOCYTE # 1.5 10^3/ul (0.3-0.9); MONOCYTES % 13.5 % (0.0-11.0); NEUTROPHIL # 7.9 10^3/ul (1.6-7.5); NEUTROPHILS % 71.5 % (39.0-77.0); PLATELET COUNT 116 10^3/UL (140-415); RED CELL DISTRIBUTION WIDTH 15.2 % (11.5-14.5); WHITE BLOOD COUNT 11.1 10^3/ul (4.8-10.8)
--- NOTE | 2016-09-09 08:19 | CONS ---
Date/Time of Note Date/Time of Note DATE: 09/09/16 TIME: 08:16 Assessment/Plan Assessment/Plan Additional Assessment/Plan Ventilator setting; AC of 20, tidal volume 550, PEEP of 5, 80% FiO2. Patient on propofol at 15 mics per kilogram per minute, Levophed at 2 mics per minute. Assessment recommendations; 1. Patient admitted with hypoxemic and hypercapnic respiratory failure then decompensated on the medical floor likely from left mainstem mucous plugging causing complete left lung atelectasis, requiring intubation. However postintubation x-ray is markedly improved. 2. Bilateral pneumonia. 3. Underlying morbid obesity. 4. Improving hypotension. 5. Mild thrombocytopenia. Continue current treatment. Consultation Date/Type/Reason Admit Date/Time Aug 30, 2016 at 23:34 Type of Consultation: Pulmonary/critical care 24 HR Interval Summary Free Text/Dictation Patient condition remains critical. Still requiring high FiO2 for O2 saturation maintenance. Patient however has remained hemodynamically stable and has been taken off pressor support. General exam; middle-aged male, morbidly obese, on ventilator via endotracheal tube. Sedated and currently no distress. Exam/Review of Systems Vital Signs Vitals Vital Signs Date Time Temp Pulse Resp B/P Pulse Ox O2 Delivery O2 Flow Rate FiO2 09/09/16 06:15 102 21 103/72 93 09/09/16 05:25 80 09/09/16 04:00 98.1 09/09/16 00:00 Mechanical Ventilator 09/07/16 18:21 4.5 Intake and Output 09/08/16 09/08/16 09/09/16 15:00 23:00 07:00 Intake Total 906.620 ml 478.629 ml 452.40 ml Output Total 840 ml 575 ml 740 ml Balance 66.620 ml -96.371 ml -287.60 ml Exam HEENT exam; supple neck, JVD difficult to see because of short neck. Patient has fair dentition. Pupils are small bilaterally. Orally intubated. No neck masses, no thyromegaly. No lymphadenopathy. Chest examination; clear to auscultation. S1-S2 audible, no murmurs. Regular rhythm. Abdomen examination; soft, protuberant. No organomegaly. Bowel sounds audible. Extremity exam; no peripheral edema. Pulses 1+ bilaterally. SEARCH COORDINATOR examination; patient remains sedated. Results Result Diagram: 09/09/16 0400 09/09/16 0500 Results 24 hrs Laboratory Tests Test 09/09/16 04:00 09/09/16 05:00 White Blood Count 11.1 H Red Blood Count 4.60 L Hemoglobin 13.9 L Hematocrit 41.3 L Mean Corpuscular Volume 89.8 Mean Corpuscular Hemoglobin 30.2 Mean Corpuscular Hemoglobin Concent 33.7 Red Cell Distribution Width 15.2 H Platelet Count 116 L Mean Platelet Volume 10.4 Neutrophils % 71.5 Lymphocytes % 13.1 L Monocytes % 13.5 H Eosinophils % 0.9 Basophils % 0.5 Nucleated Red Blood Cells % 0.0 Neutrophils # 7.9 H Lymphocytes # 1.5 Monocytes # 1.5 H Eosinophils # 0.1 Basophils # 0.1 Nucleated Red Blood Cells # 0.0 Sodium Level 133 L Potassium Level 3.4 L Chloride Level 91 L Carbon Dioxide Level 36 H Anion Gap 9 Blood Urea Nitrogen 18 Creatinine 0.78 Glucose Level 108 Calcium Level 9.3 Phosphorus Level 3.8 # Magnesium Level 1.9 Total Bilirubin 1.6 H Direct Bilirubin 0.00 Indirect Bilirubin 1.6 H Aspartate Amino Transf (AST/SGOT) 56 H Alanine Aminotransferase (ALT/SGPT) 43 Alkaline Phosphatase 76 Ammonia 56 H Total Protein 6.3 Albumin 3.3 Globulin 3.00 Albumin/Globulin Ratio 1.10 Medications Medications Current Medications Morphine Sulfate (morphine) 3 mg Q4H PRN IV PAIN; Start 08/31/16 at 01:00 Ondansetron HCl (Zofran Inj) 4 mg Q6H PRN IV NAUSEA AND/OR VOMITING; Start 02/06 at 02:00 Morphine Sulfate (morphine) 2 mg Q4H PRN IV PAIN LEVEL 7-10; Start 08/31/16 at 02:00 Aspirin (Halfprin) 81 mg DAILY PO Last administered on 09/08/16 08:54; Admin Dose 81 MG; Start 08/31/16 at 09:00 Atorvastatin Calcium (Lipitor) 10 mg QHS PO Last administered on 09/08/16 21: 03; Admin Dose 10 MG; Start 08/31/16 at 21:00 Ferrous Sulfate (Ferrous Sulfate (Ec)) 325 mg DAILY PO Last administered on 08:54; Admin Dose 325 MG; Start 08/31/16 at 09:00 Folic Acid (Folic Acid) 1 mg DAILY PO Last administered on 09/08/16 08:54; Admin Dose 1 MG; Start 08/31/16 at 09:00 Losartan Potassium (Cozaar) 50 mg BID PO Last administered on 09/07/16 08:18; Admin Dose 50 MG; Start 08/31/16 at 09:00 Multivitamins Therapeutic (Theragran) 1 tab DAILY PO Last administered on 08:54; Admin Dose 1 TAB; Start 08/31/16 at 09:00 Potassium Chloride (Klor-Con 10) 10 meq DAILY PO Last administered on 08:54; Admin Dose 10 MEQ; Start 08/31/16 at 09:00 Spironolactone (Aldactone) 50 mg DAILY PO Last administered on 09/07/16 08:17 ; Admin Dose 50 MG; Start 08/31/16 at 09:00 Thiamine HCl (Vitamin B1) 100 mg DAILY PO Last administered on 09/08/16 08:54 ; Admin Dose 100 MG; Start 08/31/16 at 09:00 Famotidine (Pepcid) 20 mg BID PO Last administered on 09/08/16 21:04; Admin Dose 20 MG; Start 09/01/16 at 21:00 Digoxin (Digoxin) 0.125 mg DAILY@13 PO Last administered on 09/08/16 12:12; Admin Dose 0.125 MG; Start 09/05/16 at 13:00 Diltiazem HCl 120 mg 120 mg BID PO Last administered on 09/07/16 09:00; Admin Dose 120 MG; Start 09/04/16 at 11:00 Propofol 100 ml @ 4.695 mls/ hr Q12H IV Last administered on 09/09/16 06:45; Admin Dose 14.085 MLS/HR; Start 09/07/16 at 13:30 Piperacillin Sod/ Tazobactam Sod (Zosyn 3.375gm/ 100 ml (Pmx)) 100 ml @ 200 mls /hr Q6 IVPB Last administered on 09/09/16 06:44; Admin Dose 200 MLS/HR; Start 09/07/16 at 16:00 Lactulose 20 gm 20 gm Q8 NGT Last administered on 09/09/16 06:44; Admin Dose 20 GM; Start 09/07/16 at 16:00 Norepinephrine/ Dextrose (Levophed/D5W) 500 ml @ 1.87 mls/hr TITRATE IV Last administered on 09/08/16 01:09; Admin Dose 18.75 MLS/HR; Start 09/07/16 at 17: 00 Acetazolamide (Diamox) 250 mg TID NGT Last administered on 09/08/16 21:03; Admin Dose 250 MG; Start 09/08/16 at 21:00 Sodium Phosphate (Kphos Neutral) 250 mg TID PO Last administered on 09/08/16 21:03; Admin Dose 250 MG; Start 09/08/16 at 21:00; Stop 09/10/16 at 20:59 IV Flush (NS 10 ml) 10 ml PRN PRN IV IV PROTOCOL; Start 09/08/16 at 17:00 Potassium Chloride (Klor-Con 20) 20 meq BID PO Last administered on 09/08/16 21:03; Admin Dose 20 MEQ; Start 09/08/16 at 21:00 ABIMAEL ZAIDI Sep 09, 2016 08:19
[2016-09-09] MEDS: ASPIRIN (EC) 81 MG TAB PO SCH (08:32)
[2016-09-09] MEDS: FERROUS SULFATE (EC) 325 MG TAB PO SCH (08:32)
[2016-09-09] MEDS: POTASSIUM CHLORIDE (SR) 10 MEQ TAB PO SCH (08:34)
[2016-09-09] MEDS: ACETAZOLAMIDE 250 MG TAB NGT SCH ×3 (08:34→21:08)
[2016-09-09] MEDS: FAMOTIDINE 20 MG TAB PO SCH ×2 (08:34→21:15)
[2016-09-09] MEDS: POTASSIUM CHLORIDE (SR) 20 MEQ TAB PO SCH ×2 (08:34→21:08)
[2016-09-09] MEDS: MULTIVITAMINS THERAPEUTIC TAB PO SCH (08:34)
[2016-09-09] MEDS: FOLIC ACID 1 MG TAB PO SCH (08:34)
[2016-09-09] MEDS: THIAMINE 100 MG TAB PO SCH (08:34)
[2016-09-09] MEDS: SOD PHOS MONO/DIBAS 250 MG TAB PO SCH ×3 (08:40→21:14)
[2016-09-09] MEDS: SPIRONOLACTONE 50 MG TAB PO SCH (09:00)
[2016-09-09] MEDS: LOSARTAN 50 MG TAB PO SCH ×2 (09:00→21:00)
[2016-09-09] MEDS: DILTIAZEM (CD) 120 MG CAP PO SCH ×2 (09:00→21:00)
--- NOTE | 2016-09-09 09:09 | PN ---
Date/Time of Note Date/Time of Note DATE: 09/09/16 TIME: 09:07 Assessment/Plan VTE Prophylaxis VTE Prophylaxis Intervention: SCD's Lines/Catheters IV Catheter Type (from [facility]): PICC Line Central line still needed: Yes (pressor support) Urinary Cath still in place: Yes Reason Cath still needed: pres ulcer contaminated by urine Assessment/Plan Assessment/Plan 1. Acute on chronic Hypoxic and hypercapnic respiratory failure. intubated on 09/07/2016 because of worsening respiratory distress. Ventilator management as per Pulmonary. Wean as tolerated when appropriate - consider CT chest - defer to pulm 2. Aspiration pneumonia. The patient was started on empiric antibiotics including coverage for anaerobes - could cause hypotension 3. Hypotension. Continue antihypertensives. Currently hypotensive. On pressor support - wean as tolerated 4. Chest pain. Acute coronary syndrome ruled out. Troponins negative so far. The patient's 2D echocardiogram showing ejection fraction of 55%. The patient will be continued on aspirin. Cardiology following the patient. 5. Chronic obstructive pulmonary disease. The patient on inhaled bronchodilators. Pulmonology following. 6. Atrial fibrillation. Rate controlled. Unable to anticoagulate because of underlying thrombocytopenia. 7. Alcoholic liver disease. Continue diuretics. The patient will also be continued on lactulose because of underlying hyperammonemia. 8. Thrombocytopenia. Most probably from acute alcoholic liver disease. Monitor for any bleeding. 9. Hyponatremia - 2/2 to beer [place] - The patient's sodium will be increased gradually. Worsening. Nephrology following. S/P 1 dose of vasopressin antagonist on 09/07/2016. 10. Alcohol abuse. The patient's last drink was on the day prior to hospitalization. The patient will be maintained on a daily thiamine. Status post Librium taper. 11. Acute on chronic CHF exacerbation. Diastolic dysfunction. decompensated - monitor I/O's Continue diuretics while carefully monitoring BP. 12. Fluid, electrolytes and nutrition. NPO. 13. Deep venous thrombosis prophylaxis. Subcutaneous heparin. Will hold this if there is worsening thrombocytopenia - SCDs 14. Gastrointestinal prophylaxis. H2 receptor blockers. Plan. Continue ICU monitoring. Monitor acute changes, wean off of vent. Repeat CXR in am. Continue with abx. As per clinical course. this critical care note took greater than 40 minutes to complete Subjective 24 Hr Interval Summary Free Text/Dictation Patient had no overnight events. Weaning off of pressors as per nursing. Otherwise desaturates when he laid flat. Spoke to nurse about the care plan. 15 minutes spent Exam/Review of Systems Vital Signs Vitals Vital Signs Date Time Temp Pulse Resp B/P Pulse Ox O2 Delivery O2 Flow Rate FiO2 09/09/16 06:15 102 21 103/72 93 09/09/16 05:25 80 09/09/16 04:00 98.1 09/09/16 00:00 Mechanical Ventilator 09/07/16 18:21 4.5 Intake and Output 09/08/16 09/08/16 09/09/16 15:00 23:00 07:00 Intake Total 906.620 ml 478.629 ml 452.40 ml Output Total 840 ml 575 ml 740 ml Balance 66.620 ml -96.371 ml -287.60 ml Exam Gen Huma: responds to stimulation, intubated/sedated HEENT: NC/AT, PERRLA, no pharyngeal erythema, no tonsillar exudates, ETT in place NECK: supple, no thyromegaly THORAX: symmetrical, no obvious deformities CV: S1S2, RRR, no M/G/R Lungs: scattered rhonchi, no wheezing, crackles Abd: soft, NT/ND, +BS, no rebound, no guarding, neg HSM, protuberant EXT: 1+ pitting bilateral edema, no ecchymosis, no clubbing, FROM Neuro: difficult to assess while on sedation Psych: cannot assess Skin: C/D/I Results Result Diagram: 09/09/16 0400 09/09/16 0500 Results 24 hrs Laboratory Tests Test 09/09/16 04:00 09/09/16 05:00 White Blood Count 11.1 H Red Blood Count 4.60 L Hemoglobin 13.9 L Hematocrit 41.3 L Mean Corpuscular Volume 89.8 Mean Corpuscular Hemoglobin 30.2 Mean Corpuscular Hemoglobin Concent 33.7 Red Cell Distribution Width 15.2 H Platelet Count 116 L Mean Platelet Volume 10.4 Neutrophils % 71.5 Lymphocytes % 13.1 L Monocytes % 13.5 H Eosinophils % 0.9 Basophils % 0.5 Nucleated Red Blood Cells % 0.0 Neutrophils # 7.9 H Lymphocytes # 1.5 Monocytes # 1.5 H Eosinophils # 0.1 Basophils # 0.1 Nucleated Red Blood Cells # 0.0 Sodium Level 133 L Potassium Level 3.4 L Chloride Level 91 L Carbon Dioxide Level 36 H Anion Gap 9 Blood Urea Nitrogen 18 Creatinine 0.78 Glucose Level 108 Calcium Level 9.3 Phosphorus Level 3.8 # Magnesium Level 1.9 Total Bilirubin 1.6 H Direct Bilirubin 0.00 Indirect Bilirubin 1.6 H Aspartate Amino Transf (AST/SGOT) 56 H Alanine Aminotransferase (ALT/SGPT) 43 Alkaline Phosphatase 76 Ammonia 56 H Total Protein 6.3 Albumin 3.3 Globulin 3.00 Albumin/Globulin Ratio 1.10 Medications Medications Current Medications Morphine Sulfate (morphine) 3 mg Q4H PRN IV PAIN; Start 08/31/16 at 01:00 Ondansetron HCl (Zofran Inj) 4 mg Q6H PRN IV NAUSEA AND/OR VOMITING; Start 02/06 at 02:00 Morphine Sulfate (morphine) 2 mg Q4H PRN IV PAIN LEVEL 7-10; Start 08/31/16 at 02:00 Aspirin (Halfprin) 81 mg DAILY PO Last administered on 09/09/16 08:32; Admin Dose 81 MG; Start 08/31/16 at 09:00 Atorvastatin Calcium (Lipitor) 10 mg QHS PO Last administered on 09/08/16 21: 03; Admin Dose 10 MG; Start 08/31/16 at 21:00 Ferrous Sulfate (Ferrous Sulfate (Ec)) 325 mg DAILY PO Last administered on 08:32; Admin Dose 325 MG; Start 08/31/16 at 09:00 Folic Acid (Folic Acid) 1 mg DAILY PO Last administered on 09/09/16 08:34; Admin Dose 1 MG; Start 08/31/16 at 09:00 Losartan Potassium (Cozaar) 50 mg BID PO Last administered on 09/07/16 08:18; Admin Dose 50 MG; Start 08/31/16 at 09:00 Multivitamins Therapeutic (Theragran) 1 tab DAILY PO Last administered on 08:34; Admin Dose 1 TAB; Start 08/31/16 at 09:00 Potassium Chloride (Klor-Con 10) 10 meq DAILY PO Last administered on 08:34; Admin Dose 10 MEQ; Start 08/31/16 at 09:00 Spironolactone (Aldactone) 50 mg DAILY PO Last administered on 09/07/16 08:17 ; Admin Dose 50 MG; Start 08/31/16 at 09:00 Thiamine HCl (Vitamin B1) 100 mg DAILY PO Last administered on 09/09/16 08:34 ; Admin Dose 100 MG; Start 08/31/16 at 09:00 Famotidine (Pepcid) 20 mg BID PO Last administered on 09/09/16 08:34; Admin Dose 20 MG; Start 09/01/16 at 21:00 Digoxin (Digoxin) 0.125 mg DAILY@13 PO Last administered on 09/08/16 12:12; Admin Dose 0.125 MG; Start 09/05/16 at 13:00 Diltiazem HCl 120 mg 120 mg BID PO Last administered on 09/07/16 09:00; Admin Dose 120 MG; Start 09/04/16 at 11:00 Propofol 100 ml @ 4.695 mls/ hr Q12H IV Last administered on 09/09/16 06:45; Admin Dose 14.085 MLS/HR; Start 09/07/16 at 13:30 Piperacillin Sod/ Tazobactam Sod (Zosyn 3.375gm/ 100 ml (Pmx)) 100 ml @ 200 mls /hr Q6 IVPB Last administered on 09/09/16 06:44; Admin Dose 200 MLS/HR; Start 09/07/16 at 16:00 Lactulose 20 gm 20 gm Q8 NGT Last administered on 09/09/16 06:44; Admin Dose 20 GM; Start 09/07/16 at 16:00 Norepinephrine/ Dextrose (Levophed/D5W) 500 ml @ 1.87 mls/hr TITRATE IV Last administered on 09/08/16 01:09; Admin Dose 18.75 MLS/HR; Start 09/07/16 at 17: 00 Acetazolamide (Diamox) 250 mg TID NGT Last administered on 09/09/16 08:34; Admin Dose 250 MG; Start 09/08/16 at 21:00 Sodium Phosphate (Kphos Neutral) 250 mg TID PO Last administered on 09/09/16 08:40; Admin Dose 250 MG; Start 09/08/16 at 21:00; Stop 09/10/16 at 20:59 IV Flush (NS 10 ml) 10 ml PRN PRN IV IV PROTOCOL; Start 09/08/16 at 17:00 Potassium Chloride (Klor-Con 20) 20 meq BID PO Last administered on 09/09/16t 08:34; Admin Dose 20 MEQ; Start 09/08/16 at 21:00 EMERSON MCCORMACK MD Sep 09, 2016 09:09
[2016-09-09] MEDS ORDERED: POTASSIUM CHLORIDE 250 ML IVPB ONE (09:30)
--- NOTE | 2016-09-09 11:48 | CONS ---
Date/Time of Note Date/Time of Note DATE: 09/09/16 TIME: 11:45 Assessment/Plan Assessment/Plan Additional Assessment/Plan 1. Acute on chronic Hypoxic and hypercapnic respiratory failure. 2. Aspiration pneumonia. 3. Hypotension. 4. Chest pain. 5. Chronic obstructive pulmonary disease. 6. Atrial fibrillation. 7. Alcoholic liver disease. 8. Thrombocytopenia. 9. Hyponatremia 10. Alcohol abuse. 11. Acute on chronic CHF exacerbation. Diastolic dysfunction. 12. Hypomagnesemia Cont to monitor UO, Electrolytes, Volume status and renal functions closely Overall Na improved, Check Mg and supplement as needed Supplement K as needed, Check Phos Renal function stable, Pt is non oliguric. Thank you for the opportunity to participate in the care of Mr Marrero. Consultation Date/Type/Reason Admit Date/Time Aug 30, 2016 at 23:34 Initial Consult Date Type of Consultation: Renal 24 HR Interval Summary Free Text/Dictation Low Dose pressors, Remains intubated, ICU status, [place] very good UO reported Subjective hx not possible: pt critical status Constitutional: requiring O2 Exam/Review of Systems Vital Signs Vitals Vital Signs Date Time Temp Pulse Resp B/P Pulse Ox O2 Delivery O2 Flow Rate FiO2 09/09/16 09:00 98 20 98/77 96 Mechanical Ventilator 09/09/16 09:00 80 09/09/16 08:00 99.9 09/07/16 18:21 4.5 Intake and Output 09/08/16 09/08/16 09/09/16 15:00 23:00 07:00 Intake Total 906.620 ml 478.629 ml 477.40 ml Output Total 840 ml 575 ml 815 ml Balance 66.620 ml -96.371 ml -337.60 ml Exam ENMT: intubated, mucosa pink and moist Respiratory: crackles/rales, No diminished breath sounds Cardiovascular: edema, regular rate and rhythm Gastrointestinal: soft, No distended Extremities: pitting pedal edema Neurological: other (sedated) Skin: No diaphoresis Results Result Diagram: 09/09/16 0400 09/09/16 0500 Results 24 hrs Laboratory Tests Test 09/09/16 04:00 09/09/16 05:00 White Blood Count 11.1 H Red Blood Count 4.60 L Hemoglobin 13.9 L Hematocrit 41.3 L Mean Corpuscular Volume 89.8 Mean Corpuscular Hemoglobin 30.2 Mean Corpuscular Hemoglobin Concent 33.7 Red Cell Distribution Width 15.2 H Platelet Count 116 L Mean Platelet Volume 10.4 Neutrophils % 71.5 Lymphocytes % 13.1 L Monocytes % 13.5 H Eosinophils % 0.9 Basophils % 0.5 Nucleated Red Blood Cells % 0.0 Neutrophils # 7.9 H Lymphocytes # 1.5 Monocytes # 1.5 H Eosinophils # 0.1 Basophils # 0.1 Nucleated Red Blood Cells # 0.0 Sodium Level 133 L Potassium Level 3.4 L Chloride Level 91 L Carbon Dioxide Level 36 H Anion Gap 9 Blood Urea Nitrogen 18 Creatinine 0.78 Glucose Level 108 Calcium Level 9.3 Phosphorus Level 3.8 # Magnesium Level 1.9 Total Bilirubin 1.6 H Direct Bilirubin 0.00 Indirect Bilirubin 1.6 H Aspartate Amino Transf (AST/SGOT) 56 H Alanine Aminotransferase (ALT/SGPT) 43 Alkaline Phosphatase 76 Ammonia 56 H Total Protein 6.3 Albumin 3.3 Globulin 3.00 Albumin/Globulin Ratio 1.10 Medications Medications Current Medications Morphine Sulfate (morphine) 3 mg Q4H PRN IV PAIN; Start 08/31/16 at 01:00 Ondansetron HCl (Zofran Inj) 4 mg Q6H PRN IV NAUSEA AND/OR VOMITING; Start 02/06 at 02:00 Morphine Sulfate (morphine) 2 mg Q4H PRN IV PAIN LEVEL 7-10; Start 08/31/16 at 02:00 Aspirin (Halfprin) 81 mg DAILY PO Last administered on 09/09/16 08:32; Admin Dose 81 MG; Start 08/31/16 at 09:00 Atorvastatin Calcium (Lipitor) 10 mg QHS PO Last administered on 09/08/16 21: 03; Admin Dose 10 MG; Start 08/31/16 at 21:00 Ferrous Sulfate (Ferrous Sulfate (Ec)) 325 mg DAILY PO Last administered on 08:32; Admin Dose 325 MG; Start 08/31/16 at 09:00 Folic Acid (Folic Acid) 1 mg DAILY PO Last administered on 09/09/16 08:34; Admin Dose 1 MG; Start 08/31/16 at 09:00 Losartan Potassium (Cozaar) 50 mg BID PO Last administered on 09/07/16 08:18; Admin Dose 50 MG; Start 08/31/16 at 09:00 Multivitamins Therapeutic (Theragran) 1 tab DAILY PO Last administered on 08:34; Admin Dose 1 TAB; Start 08/31/16 at 09:00 Potassium Chloride (Klor-Con 10) 10 meq DAILY PO Last administered on 08:34; Admin Dose 10 MEQ; Start 08/31/16 at 09:00 Spironolactone (Aldactone) 50 mg DAILY PO Last administered on 09/07/16 08:17 ; Admin Dose 50 MG; Start 08/31/16 at 09:00 Thiamine HCl (Vitamin B1) 100 mg DAILY PO Last administered on 09/09/16 08:34 ; Admin Dose 100 MG; Start 08/31/16 at 09:00 Famotidine (Pepcid) 20 mg BID PO Last administered on 09/09/16 08:34; Admin Dose 20 MG; Start 09/01/16 at 21:00 Digoxin (Digoxin) 0.125 mg DAILY@13 PO Last administered on 09/08/16 12:12; Admin Dose 0.125 MG; Start 09/05/16 at 13:00 Diltiazem HCl 120 mg 120 mg BID PO Last administered on 09/07/16 09:00; Admin Dose 120 MG; Start 09/04/16 at 11:00 Propofol 100 ml @ 4.695 mls/ hr Q12H IV Last administered on 09/09/16 06:45; Admin Dose 14.085 MLS/HR; Start 09/07/16 at 13:30 Piperacillin Sod/ Tazobactam Sod (Zosyn 3.375gm/ 100 ml (Pmx)) 100 ml @ 200 mls /hr Q6 IVPB Last administered on 09/09/16 11:04; Admin Dose 200 MLS/HR; Start 09/07/16 at 16:00 Lactulose 20 gm 20 gm Q8 NGT Last administered on 09/09/16 06:44; Admin Dose 20 GM; Start 09/07/16 at 16:00 Norepinephrine/ Dextrose (Levophed/D5W) 500 ml @ 1.87 mls/hr TITRATE IV Last administered on 09/08/16 01:09; Admin Dose 18.75 MLS/HR; Start 09/07/16 at 17: 00 Acetazolamide (Diamox) 250 mg TID NGT Last administered on 09/09/16 08:34; Admin Dose 250 MG; Start 09/08/16 at 21:00 Sodium Phosphate (Kphos Neutral) 250 mg TID PO Last administered on 09/09/16 08:40; Admin Dose 250 MG; Start 09/08/16 at 21:00; Stop 09/10/16 at 20:59 IV Flush (NS 10 ml) 10 ml PRN PRN IV IV PROTOCOL; Start 09/08/16 at 17:00 Potassium Chloride 20 meq 20 meq BID PO Last administered on 09/09/16 08:34; Admin Dose 20 MEQ; Start 09/08/16 at 21:00 Potassium Chloride (KCl 40 MEQ/250 ML NS) 250 ml @ 62.5 mls/hr ONCE ONCE IVPB Last administered on 09/09/16 11:04; Admin Dose 62.5 MLS/HR; Start 09/09/16 at 09:30; Stop 09/09/16 at 13:29 Procedures Procedures PROCEDURE: XR Chest. CLINICAL INDICATION: Respiratory failure TECHNIQUE: An AP view of the chest was obtained. COMPARISON: Chest x-ray dated 09/07/2016 FINDINGS: The endotracheal tube tip is approximately 5.6 cm above the amber. The tip of the enteric tube extends below the left diaphragm. There is prominence of the interstitial and central pulmonary vascular markings with bilateral basilar consolidation and small bilateral pleural effusions. No pneumothorax is seen. The cardiomediastinal silhouette is mildly enlarged . Calcifications are seen within the aortic arch. The osseous structures demonstrate senescent changes. IMPRESSION: 1. Bilateral basilar consolidation may reflect atelectasis or pneumonia. Findings are new on the right when compared to the prior examination. 2. Small bilateral pleural effusions, increased from prior examination. 3. Findings suggestive of pulmonary vascular congestion/interstitial edema, not significantly changed. 4. Mild cardiomegaly and aortic atherosclerosis. 5. Tubes and lines, as described above. OLENA SINCLAIR MD Sep 09, 2016 11:48
[2016-09-09] MEDS: DIGOXIN 0.125 MG TAB PO SCH (13:14)
[2016-09-09] MEDS: ATORVASTATIN 10 MG TAB PO SCH (21:08)
[2016-09-10] VITALS (63 sets, daily range): BP systolic 83–115; BP diastolic 51–83; PULSE 72–109; RESP 17–25
[2016-09-10] MEDS: PIPER-TAZO 3.375 GM IV (PMX) 100 ML IVPB SCH ×4 (00:19→17:29)
[2016-09-10] MEDS: IPRATROPIUM (HFA) 12.9 GM INHALER INH SCH ×4 (01:05→20:32)
[2016-09-10] MEDS: PROPOFOL 100 ML IV SCH ×4 (04:30→18:40)
[2016-09-10] MEDS: LACTULOSE 30ML CUP NGT SCH ×3 (05:43→21:46)
[2016-09-10] MEDS: ALBUTEROL 18 GM INHALER INH SCH ×3 (07:19→20:32)
[2016-09-10] MEDS: DILTIAZEM (CD) 120 MG CAP PO SCH ×2 (08:05→21:47)
[2016-09-10] MEDS: LOSARTAN 50 MG TAB PO SCH ×2 (08:05→21:00)
[2016-09-10] MEDS: ASPIRIN (EC) 81 MG TAB PO SCH (08:15)
[2016-09-10] MEDS: POTASSIUM CHLORIDE (SR) 10 MEQ TAB PO SCH (08:15)
[2016-09-10] MEDS: FERROUS SULFATE (EC) 325 MG TAB PO SCH (08:16)
[2016-09-10] MEDS: FAMOTIDINE 20 MG TAB PO SCH ×2 (08:16→21:46)
[2016-09-10] MEDS: MULTIVITAMINS THERAPEUTIC TAB PO SCH (08:16)
[2016-09-10] MEDS: POTASSIUM CHLORIDE (SR) 20 MEQ TAB PO SCH ×2 (08:16→21:45)
[2016-09-10] MEDS: SPIRONOLACTONE 50 MG TAB PO SCH (08:16)
[2016-09-10] MEDS: THIAMINE 100 MG TAB PO SCH (08:16)
[2016-09-10] MEDS: FOLIC ACID 1 MG TAB PO SCH (08:16)
[2016-09-10] MEDS: ACETAZOLAMIDE 250 MG TAB NGT SCH ×3 (08:16→21:46)
[2016-09-10] MEDS: SOD PHOS MONO/DIBAS 250 MG TAB PO SCH ×2 (08:17→12:36)
--- NOTE | 2016-09-10 09:21 | PN ---
Date/Time of Note Date/Time of Note DATE: 09/10/16 TIME: 09:19 Assessment/Plan VTE Prophylaxis VTE Prophylaxis Intervention: SCD's Lines/Catheters IV Catheter Type (from [facility]): PICC Line Central line still needed: No Urinary Cath still in place: Yes Reason Cath still needed: other (indicate) (critically ill) Assessment/Plan Assessment/Plan 56 yo M with COPD admitted for SOB. Intubated for respiratory failure. Also now with aspiration pneumonia. 1. Acute on chronic Hypoxic and hypercapnic respiratory failure. intubated on 09/07/2016 because of worsening respiratory distress. Ventilator management as per Pulmonary. Wean as tolerated when appropriate - 2. Aspiration pneumonia. The patient was started on empiric antibiotics including coverage for anaerobes 3. Hypotension. Continue antihypertensives. Currently hypotensive. On pressor support - wean as tolerated 4. Chest pain. Acute coronary syndrome ruled out. The patient's 2D echocardiogram showing ejection fraction of 55%. The patient will be continued on aspirin. Cardiology following the patient. 5. Chronic obstructive pulmonary disease. The patient on inhaled bronchodilators. Pulmonology following. 6. Atrial fibrillation. Rate controlled. Unable to anticoagulate because of underlying thrombocytopenia. 7. Alcoholic liver disease. Continue diuretics. The patient will also be continued on lactulose because of underlying hyperammonemia. 8. Thrombocytopenia. Most probably from acute alcoholic liver disease. Monitor for any bleeding. 9. Hyponatremia - 2/2 to beer [place] - The patient's sodium will be increased gradually. Worsening. Nephrology following. S/P 1 dose of vasopressin antagonist on 09/07/2016. 10. Alcohol abuse. The patient's last drink was on the day prior to hospitalization. The patient will be maintained on a daily thiamine. Status post Librium taper. 11. Acute on chronic CHF exacerbation. Diastolic dysfunction. decompensated - monitor I/O's Continue diuretics while carefully monitoring BP. 12. Fluid, electrolytes and nutrition. NPO. 13. Deep venous thrombosis prophylaxis. Subcutaneous heparin. Will hold this if there is worsening thrombocytopenia - SCDs 14. Gastrointestinal prophylaxis. H2 receptor blockers. Plan. Continue ICU monitoring. Monitor acute changes, wean off of vent. Subjective 24 Hr Interval Summary Free Text/Dictation Not yet weanable per RN. Still too agitated Exam/Review of Systems Vital Signs Vitals Vital Signs Date Time Temp Pulse Resp B/P Pulse Ox O2 Delivery O2 Flow Rate FiO2 6/21/17 08:00 94 09/10/16 07:00 98.3 20 93/69 93 Mechanical Ventilator 09/10/16 05:03 70 09/07/16 18:21 4.5 Intake and Output 09/09/16 09/09/16 09/10/16 15:00 23:00 07:00 Intake Total 590.77 ml 466.425 ml 491.915 ml Output Total 515 ml 425 ml 375 ml Balance 75.77 ml 41.425 ml 116.915 ml Exam intubated and sedated no mrg lungs clear abd obese no rashes Results Result Diagram: 09/09/16 0400 09/09/16 0500 Results 24 hrs Laboratory Tests Test 09/10/16 04:30 Magnesium Level 1.9 Medications Medications Current Medications Morphine Sulfate (morphine) 3 mg Q4H PRN IV PAIN; Start 08/31/16 at 01:00 Ondansetron HCl (Zofran Inj) 4 mg Q6H PRN IV NAUSEA AND/OR VOMITING; Start 02/06 at 02:00 Morphine Sulfate (morphine) 2 mg Q4H PRN IV PAIN LEVEL 7-10; Start 08/31/16 at 02:00 Aspirin (Halfprin) 81 mg DAILY PO Last administered on 09/10/16 08:15; Admin Dose 81 MG; Start 08/31/16 at 09:00 Atorvastatin Calcium (Lipitor) 10 mg QHS PO Last administered on 09/09/16 21: 08; Admin Dose 10 MG; Start 08/31/16 at 21:00 Ferrous Sulfate (Ferrous Sulfate (Ec)) 325 mg DAILY PO Last administered on 08:16; Admin Dose 325 MG; Start 08/31/16 at 09:00 Folic Acid (Folic Acid) 1 mg DAILY PO Last administered on 09/10/16 08:16; Admin Dose 1 MG; Start 08/31/16 at 09:00 Losartan Potassium (Cozaar) 50 mg BID PO Last administered on 09/07/16 08:18; Admin Dose 50 MG; Start 08/31/16 at 09:00 Multivitamins Therapeutic (Theragran) 1 tab DAILY PO Last administered on 08:16; Admin Dose 1 TAB; Start 08/31/16 at 09:00 Potassium Chloride (Klor-Con 10) 10 meq DAILY PO Last administered on 08:15; Admin Dose 10 MEQ; Start 08/31/16 at 09:00 Spironolactone (Aldactone) 50 mg DAILY PO Last administered on 09/10/16 08:16 ; Admin Dose 50 MG; Start 08/31/16 at 09:00 Thiamine HCl (Vitamin B1) 100 mg DAILY PO Last administered on 09/10/16 08:16 ; Admin Dose 100 MG; Start 08/31/16 at 09:00 Famotidine (Pepcid) 20 mg BID PO Last administered on 09/10/16 08:16; Admin Dose 20 MG; Start 09/01/16 at 21:00 Digoxin (Digoxin) 0.125 mg DAILY@13 PO Last administered on 09/09/16 13:14; Admin Dose 0.125 MG; Start 09/05/16 at 13:00 Diltiazem HCl 120 mg 120 mg BID PO Last administered on 09/07/16 09:00; Admin Dose 120 MG; Start 09/04/16 at 11:00 Propofol 100 ml @ 4.695 mls/ hr Q12H IV Last administered on 09/10/16 08:21; Admin Dose 14.085 MLS/HR; Start 09/07/16 at 13:30 Piperacillin Sod/ Tazobactam Sod (Zosyn 3.375gm/ 100 ml (Pmx)) 100 ml @ 200 mls /hr Q6 IVPB Last administered on 09/10/16 05:43; Admin Dose 200 MLS/HR; Start 09/07/16 at 16:00 Lactulose 20 gm 20 gm Q8 NGT Last administered on 09/10/16 05:43; Admin Dose 20 GM; Start 09/07/16 at 16:00 Norepinephrine/ Dextrose (Levophed/D5W) 500 ml @ 1.87 mls/hr TITRATE IV Last administered on 09/08/16 01:09; Admin Dose 18.75 MLS/HR; Start 09/07/16 at 17: 00 Acetazolamide (Diamox) 250 mg TID NGT Last administered on 09/10/16 08:16; Admin Dose 250 MG; Start 09/08/16 at 21:00 Sodium Phosphate (Kphos Neutral) 250 mg TID PO Last administered on 09/10/16 08:17; Admin Dose 250 MG; Start 09/08/16 at 21:00; Stop 09/10/16 at 20:59 IV Flush (NS 10 ml) 10 ml PRN PRN IV IV PROTOCOL; Start 09/08/16 at 17:00 Potassium Chloride (Klor-Con 20) 20 meq BID PO Last administered on 09/10/16 08:16; Admin Dose 20 MEQ; Start 09/08/16 at 21:00 CARLI MCINTYRE MD Sep 10, 2016 09:21
[2016-09-10 09:55] LABS: ADD SCAN DIFF NO
[2016-09-10 10:01] LABS: BASOPHIL # 0.1 10^3/ul (0.0-0.1); BASOPHILS % 0.5 % (0.0-2.0); EOSINOPHILS # 0.3 10^3/ul (0.0-0.5); EOSINOPHILS % 2.7 % (0.0-7.0); HEMATOCRIT 40.6 % (42.0-52.0); HEMOGLOBIN 13.6 g/dl (14.0-18.0); LYMPHOCYTES # 1.1 10^3/ul (0.8-2.9); LYMPHOCYTES % 10.3 % (15.0-51.0); MEAN CORPUSCULAR HEMOGLOBIN 30.1 pg (29.0-33.0); MEAN CORPUSCULAR HGB CONC 33.5 g/dl (32.0-37.0); MEAN CORPUSCULAR VOLUME 89.8 fl (82.0-101.0); MEAN PLATELET VOLUME 10.5 fl (7.4-10.4); MONOCYTE # 1.2 10^3/ul (0.3-0.9); NEUTROPHIL # 7.6 10^3/ul (1.6-7.5); NEUTROPHILS % 74.1 % (39.0-77.0); PLATELET COUNT 106 10^3/UL (140-415); RED BLOOD COUNT 4.52 10^6/ul (4.70-6.10); RED CELL DISTRIBUTION WIDTH 14.9 % (11.5-14.5); WHITE BLOOD COUNT 10.3 10^3/ul (4.8-10.8)
--- NOTE | 2016-09-10 10:25 | CONS ---
Date/Time of Note Date/Time of Note DATE: 09/10/16 TIME: 10:22 Assessment/Plan Assessment/Plan Additional Assessment/Plan Ventilator setting; AC of 20, tidal volume 550, PEEP of 5, 70% FiO2. Patient currently on propofol at 15 mics per kilogram per minute. Assessment recommendations; 1. Patient admitted for hypoxemic and hypercapnic respiratory failure from underlying obesity/hypoventilation syndrome then developed respiratory failure due to complete atelectasis of left lung likely from underlying mucous plugging however postintubation x-ray is markedly improved. 2. Bilateral pneumonia. 3. Mild thrombocytopenia. 4. Hypotension with interval resolution, patient off pressor support. Continue current treatment. Awaiting chest x-ray from today. Consultation Date/Type/Reason Admit Date/Time Aug 30, 2016 at 23:34 Type of Consultation: Pulmonary/critical care 24 HR Interval Summary Free Text/Dictation Patient condition remains critical. Still requiring high FiO2 for O2 saturation maintenance. Patient however has remained hemodynamically stable, off pressor support. Vlad; middle-aged male, morbidly was, orally intubated, sedated. Currently no distress. Exam/Review of Systems Vital Signs Vitals Vital Signs Date Time Temp Pulse Resp B/P Pulse Ox O2 Delivery O2 Flow Rate FiO2 09/10/16 09:30 96 20 104/74 95 Mechanical Ventilator 09/10/16 07:00 98.3 09/10/16 05:03 70 09/07/16 18:21 4.5 Intake and Output 09/09/16 09/09/16 09/10/16 15:00 23:00 07:00 Intake Total 590.77 ml 466.425 ml 491.915 ml Output Total 515 ml 425 ml 375 ml Balance 75.77 ml 41.425 ml 116.915 ml Exam HEENT examination; supple neck, no JVD. No lymphadenopathy. Midline trachea. No thyromegaly. Orally intubated. Patient has fair dentition. Pupils are midsize and reactive to light bilaterally. Chest examination; diminished but clear vessel. S1-S2 audible, no murmurs. Regular rhythm. Abdomen examination; protuberant, no organomegaly. Bowel sounds audible. Extremity examination; no peripheral edema. Pulses 1+ bilaterally. [employer] examination; patient is sedated Results Result Diagram: 09/10/16 0929 09/09/16 0500 Results 24 hrs Laboratory Tests Test 09/10/16 04:30 09/10/16 09:29 Magnesium Level 1.9 White Blood Count 10.3 Red Blood Count 4.52 L Hemoglobin 13.6 L Hematocrit 40.6 L Mean Corpuscular Volume 89.8 Mean Corpuscular Hemoglobin 30.1 Mean Corpuscular Hemoglobin Concent 33.5 Red Cell Distribution Width 14.9 H Platelet Count 106 L Mean Platelet Volume 10.5 H Neutrophils % 74.1 Lymphocytes % 10.3 L Monocytes % 12.0 H Eosinophils % 2.7 Basophils % 0.5 Nucleated Red Blood Cells % 0.0 Neutrophils # 7.6 H Lymphocytes # 1.1 Monocytes # 1.2 H Eosinophils # 0.3 Basophils # 0.1 Nucleated Red Blood Cells # 0.0 Medications Medications Current Medications Morphine Sulfate (morphine) 3 mg Q4H PRN IV PAIN; Start 08/31/16 at 01:00 Ondansetron HCl (Zofran Inj) 4 mg Q6H PRN IV NAUSEA AND/OR VOMITING; Start 02/06 at 02:00 Morphine Sulfate (morphine) 2 mg Q4H PRN IV PAIN LEVEL 7-10; Start 08/31/16 at 02:00 Aspirin (Halfprin) 81 mg DAILY PO Last administered on 09/10/16 08:15; Admin Dose 81 MG; Start 08/31/16 at 09:00 Atorvastatin Calcium (Lipitor) 10 mg QHS PO Last administered on 09/09/16 21: 08; Admin Dose 10 MG; Start 08/31/16 at 21:00 Ferrous Sulfate (Ferrous Sulfate (Ec)) 325 mg DAILY PO Last administered on 08:16; Admin Dose 325 MG; Start 08/31/16 at 09:00 Folic Acid (Folic Acid) 1 mg DAILY PO Last administered on 09/10/16 08:16; Admin Dose 1 MG; Start 08/31/16 at 09:00 Losartan Potassium (Cozaar) 50 mg BID PO Last administered on 09/07/16 08:18; Admin Dose 50 MG; Start 08/31/16 at 09:00 Multivitamins Therapeutic (Theragran) 1 tab DAILY PO Last administered on 08:16; Admin Dose 1 TAB; Start 08/31/16 at 09:00 Potassium Chloride (Klor-Con 10) 10 meq DAILY PO Last administered on 08:15; Admin Dose 10 MEQ; Start 08/31/16 at 09:00 Spironolactone (Aldactone) 50 mg DAILY PO Last administered on 09/10/16 08:16 ; Admin Dose 50 MG; Start 08/31/16 at 09:00 Thiamine HCl (Vitamin B1) 100 mg DAILY PO Last administered on 09/10/16 08:16 ; Admin Dose 100 MG; Start 08/31/16 at 09:00 Famotidine (Pepcid) 20 mg BID PO Last administered on 09/10/16 08:16; Admin Dose 20 MG; Start 09/01/16 at 21:00 Digoxin (Digoxin) 0.125 mg DAILY@13 PO Last administered on 09/09/16 13:14; Admin Dose 0.125 MG; Start 09/05/16 at 13:00 Diltiazem HCl 120 mg 120 mg BID PO Last administered on 09/07/16 09:00; Admin Dose 120 MG; Start 09/04/16 at 11:00 Propofol 100 ml @ 4.695 mls/ hr Q12H IV Last administered on 09/10/16 08:21; Admin Dose 14.085 MLS/HR; Start 09/07/16 at 13:30 Piperacillin Sod/ Tazobactam Sod (Zosyn 3.375gm/ 100 ml (Pmx)) 100 ml @ 200 mls /hr Q6 IVPB Last administered on 09/10/16 05:43; Admin Dose 200 MLS/HR; Start 09/07/16 at 16:00 Lactulose 20 gm 20 gm Q8 NGT Last administered on 09/10/16 05:43; Admin Dose 20 GM; Start 09/07/16 at 16:00 Norepinephrine/ Dextrose (Levophed/D5W) 500 ml @ 1.87 mls/hr TITRATE IV Last administered on 09/08/16 01:09; Admin Dose 18.75 MLS/HR; Start 09/07/16 at 17: 00 Acetazolamide (Diamox) 250 mg TID NGT Last administered on 09/10/16 08:16; Admin Dose 250 MG; Start 09/08/16 at 21:00 Sodium Phosphate (Kphos Neutral) 250 mg TID PO Last administered on 09/10/16 08:17; Admin Dose 250 MG; Start 09/08/16 at 21:00; Stop 09/10/16 at 20:59 IV Flush (NS 10 ml) 10 ml PRN PRN IV IV PROTOCOL; Start 09/08/16 at 17:00 Potassium Chloride (Klor-Con 20) 20 meq BID PO Last administered on 09/10/16 08:16; Admin Dose 20 MEQ; Start 09/08/16 at 21:00 ABIMAEL ZAIDI Sep 10, 2016 10:24
[2016-09-10 10:39] LABS: CALCIUM 9.2 mg/dl (8.4-10.2); CREATININE 0.84 mg/dl (0.61-1.24); POTASSIUM 3.2 mmol/L (3.5-5.1)
--- NOTE | 2016-09-10 11:17 | CONS ---
Date/Time of Note Date/Time of Note DATE: 09/10/16 TIME: 11:15 Assessment/Plan Assessment/Plan Additional Assessment/Plan 1. Acute on chronic Hypoxic and hypercapnic respiratory failure. 2. Aspiration pneumonia. 3. Hypotension. 4. Chest pain. 5. Chronic obstructive pulmonary disease. 6. Atrial fibrillation. 7. Alcoholic liver disease. 8. Thrombocytopenia. 9. Hyponatremia 10. Alcohol abuse. 11. Acute on chronic CHF exacerbation. Diastolic dysfunction. 12. Hypomagnesemia- Resolved 13. Hypokalemia Cont to monitor UO, Electrolytes, Volume status and renal functions closely Overall Na improved, Mg Ok Supplement K as needed, Pre-Renal this am, Will order NS with KCL IVFs Re-asses in 24 hours Thank you for the opportunity to participate in the care of Mr Marrero. Consultation Date/Type/Reason Admit Date/Time Aug 30, 2016 at 23:34 Type of Consultation: Renal 24 HR Interval Summary Free Text/Dictation Off pressors, Remains intubated Subjective hx not possible: pt critical status Constitutional: requiring O2 Exam/Review of Systems Vital Signs Vitals Vital Signs Date Time Temp Pulse Resp B/P Pulse Ox O2 Delivery O2 Flow Rate FiO2 09/10/16 10:30 97 20 83/56 93 Mechanical Ventilator 09/10/16 08:00 70 09/10/16 07:00 98.3 09/07/16 18:21 4.5 Intake and Output 09/09/16 09/09/16 09/10/16 15:00 23:00 07:00 Intake Total 590.77 ml 466.425 ml 491.915 ml Output Total 515 ml 425 ml 375 ml Balance 75.77 ml 41.425 ml 116.915 ml Exam ENMT: intubated, mucosa pink and moist Respiratory: No labored breathing Cardiovascular: edema Gastrointestinal: soft, No rebound or guarding Neurological: other (sedated) Skin: No diaphoresis Results Result Diagram: 09/10/1692809/10/16928 Results 24 hrs Laboratory Tests Test 09/10/16 04:30 09/10/16 09:29 Magnesium Level 1.9 White Blood Count 10.3 Red Blood Count 4.52 L Hemoglobin 13.6 L Hematocrit 40.6 L Mean Corpuscular Volume 89.8 Mean Corpuscular Hemoglobin 30.1 Mean Corpuscular Hemoglobin Concent 33.5 Red Cell Distribution Width 14.9 H Platelet Count 106 L Mean Platelet Volume 10.5 H Neutrophils % 74.1 Lymphocytes % 10.3 L Monocytes % 12.0 H Eosinophils % 2.7 Basophils % 0.5 Nucleated Red Blood Cells % 0.0 Neutrophils # 7.6 H Lymphocytes # 1.1 Monocytes # 1.2 H Eosinophils # 0.3 Basophils # 0.1 Nucleated Red Blood Cells # 0.0 Sodium Level 139 Potassium Level 3.2 L Chloride Level 98 Carbon Dioxide Level 30 Anion Gap 14 Blood Urea Nitrogen 21 H Creatinine 0.84 Glucose Level 90 Calcium Level 9.2 Medications Medications Current Medications Morphine Sulfate (morphine) 3 mg Q4H PRN IV PAIN; Start 08/31/16 at 01:00 Ondansetron HCl (Zofran Inj) 4 mg Q6H PRN IV NAUSEA AND/OR VOMITING; Start 02/06 at 02:00 Morphine Sulfate (morphine) 2 mg Q4H PRN IV PAIN LEVEL 7-10; Start 08/31/16 at 02:00 Aspirin (Halfprin) 81 mg DAILY PO Last administered on 09/10/16 08:15; Admin Dose 81 MG; Start 08/31/16 at 09:00 Atorvastatin Calcium (Lipitor) 10 mg QHS PO Last administered on 09/09/16 21: 08; Admin Dose 10 MG; Start 08/31/16 at 21:00 Ferrous Sulfate (Ferrous Sulfate (Ec)) 325 mg DAILY PO Last administered on 08:16; Admin Dose 325 MG; Start 08/31/16 at 09:00 Folic Acid (Folic Acid) 1 mg DAILY PO Last administered on 09/10/16 08:16; Admin Dose 1 MG; Start 08/31/16 at 09:00 Losartan Potassium (Cozaar) 50 mg BID PO Last administered on 09/07/16 08:18; Admin Dose 50 MG; Start 08/31/16 at 09:00 Multivitamins Therapeutic (Theragran) 1 tab DAILY PO Last administered on 08:16; Admin Dose 1 TAB; Start 08/31/16 at 09:00 Potassium Chloride (Klor-Con 10) 10 meq DAILY PO Last administered on 08:15; Admin Dose 10 MEQ; Start 08/31/16 at 09:00 Spironolactone (Aldactone) 50 mg DAILY PO Last administered on 09/10/16 08:16 ; Admin Dose 50 MG; Start 08/31/16 at 09:00 Thiamine HCl (Vitamin B1) 100 mg DAILY PO Last administered on 09/10/16 08:16 ; Admin Dose 100 MG; Start 08/31/16 at 09:00 Famotidine (Pepcid) 20 mg BID PO Last administered on 09/10/16 08:16; Admin Dose 20 MG; Start 09/01/16 at 21:00 Digoxin (Digoxin) 0.125 mg DAILY@13 PO Last administered on 09/09/16 13:14; Admin Dose 0.125 MG; Start 09/05/16 at 13:00 Diltiazem HCl 120 mg 120 mg BID PO Last administered on 09/07/16 09:00; Admin Dose 120 MG; Start 09/04/16 at 11:00 Propofol 100 ml @ 4.695 mls/ hr Q12H IV Last administered on 09/10/16 08:21; Admin Dose 14.085 MLS/HR; Start 09/07/16 at 13:30 Piperacillin Sod/ Tazobactam Sod (Zosyn 3.375gm/ 100 ml (Pmx)) 100 ml @ 200 mls /hr Q6 IVPB Last administered on 09/10/16 05:43; Admin Dose 200 MLS/HR; Start 09/07/16 at 16:00 Lactulose 20 gm 20 gm Q8 NGT Last administered on 09/10/16 05:43; Admin Dose 20 GM; Start 09/07/16 at 16:00 Norepinephrine/ Dextrose (Levophed/D5W) 500 ml @ 1.87 mls/hr TITRATE IV Last administered on 09/08/16 01:09; Admin Dose 18.75 MLS/HR; Start 09/07/16 at 17: 00 Acetazolamide (Diamox) 250 mg TID NGT Last administered on 09/10/16 08:16; Admin Dose 250 MG; Start 09/08/16 at 21:00 Sodium Phosphate (Kphos Neutral) 250 mg TID PO Last administered on 09/10/16 08:17; Admin Dose 250 MG; Start 09/08/16 at 21:00; Stop 09/10/16 at 20:59 IV Flush (NS 10 ml) 10 ml PRN PRN IV IV PROTOCOL; Start 09/08/16 at 17:00 Potassium Chloride (Klor-Con 20) 20 meq BID PO Last administered on 09/10/16t 08:16; Admin Dose 20 MEQ; Start 09/08/16 at 21:00 OLENA SINCLAIR MD Sep 10, 2016 11:17
[2016-09-10] MEDS ORDERED: NS + KCL 20 MEQ 1,000 ML IV SCH (11:30)
[2016-09-10] MEDS: DIGOXIN 0.125 MG TAB PO SCH (12:36)
--- NOTE | 2016-09-10 14:35 | RADRPT ---
PROCEDURE: XR Chest 1 view. CLINICAL INDICATION: Shortness of breath. TECHNIQUE: AP views of the chest were obtained. COMPARISON: September 08, 2016 FINDINGS: The heart is large. Calcified atherosclerosis is noted in the aorta. Endotracheal and nasogastric t ubes are stable and appear in grossly appropriate locations. Right sided PICC line is unchanged. P atchy left mid and lower lung infiltrates, combined with small pleural effusion are stable. Patchy right lower lung infiltrates and small right pleural effusion have mildly decreased. The osseous st ructures appear grossly intact. IMPRESSION: Cardiomegaly with calcified atherosclerosis in the aorta. Stable left mid and lower lung infiltrates, combined small pleural effusion. Mild interval decrease in right lower lung infiltrates and small right pleural effusion. Moderate r esidual remains. RPTAT: AA .hPilipp Becerra MD, Date Time Electronically viewed and signed by .Philipp Becerra MD, on 09/10/2016 14:35 .P/
[2016-09-10] MEDS: ATORVASTATIN 10 MG TAB PO SCH (21:46)
[2016-09-11] VITALS (49 sets, daily range): BP systolic 85–117; BP diastolic 56–83; PULSE 57–89; RESP 18–25
[2016-09-11] MEDS: ALBUTEROL 18 GM INHALER INH SCH ×4 (01:30→20:46)
[2016-09-11] MEDS: IPRATROPIUM (HFA) 12.9 GM INHALER INH SCH ×4 (01:30→20:46)
[2016-09-11] MEDS: PROPOFOL 100 ML IV SCH ×5 (01:40→21:29)
[2016-09-11] MEDS: PIPER-TAZO 3.375 GM IV (PMX) 100 ML IVPB SCH ×5 (01:45→23:46)
[2016-09-11] MEDS: LACTULOSE 30ML CUP NGT SCH ×3 (06:21→21:32)
[2016-09-11] MEDS: ASPIRIN (EC) 81 MG TAB PO SCH (08:14)
[2016-09-11] MEDS: FERROUS SULFATE (EC) 325 MG TAB PO SCH (08:15)
[2016-09-11] MEDS: FOLIC ACID 1 MG TAB PO SCH (08:15)
[2016-09-11] MEDS: POTASSIUM CHLORIDE (SR) 10 MEQ TAB PO SCH (08:15)
[2016-09-11] MEDS: MULTIVITAMINS THERAPEUTIC TAB PO SCH (08:15)
[2016-09-11] MEDS: THIAMINE 100 MG TAB PO SCH (08:15)
[2016-09-11] MEDS: ACETAZOLAMIDE 250 MG TAB NGT SCH ×3 (08:15→20:42)
[2016-09-11] MEDS: POTASSIUM CHLORIDE (SR) 20 MEQ TAB PO SCH (08:15)
[2016-09-11] MEDS: FAMOTIDINE 20 MG TAB PO SCH (08:15)
[2016-09-11] MEDS: DILTIAZEM (CD) 120 MG CAP PO SCH (08:15)
[2016-09-11] MEDS: LOSARTAN 50 MG TAB PO SCH (08:20)
--- NOTE | 2016-09-11 10:22 | CONS ---
Date/Time of Note Date/Time of Note DATE: 09/11/16 TIME: 10:19 Assessment/Plan Assessment/Plan Additional Assessment/Plan Ventilator setting; AC of 20, tidal volume 550, PEEP of 5, 70% FiO2. Patient currently on propofol at 3 mics per kilogram per minute. Assessment recommendations; 1. Patient admitted for hypercapnic and hypoxemic respiratory failure was doing fairly well on the medical floor the patient developed acute respiratory failure likely from mainstem mucous plugging resulting in complete left lung atelectasis however chest x-ray significantly improved post intubation. 2. Bilateral pneumonia. 3. Mild thrombocytopenia. 4. Underlying severe obesity with likely underlying sleep apnea and obesity/ hypoventilation syndrome. Continue current treatment. Obtain follow-up chest x-ray. Consultation Date/Type/Reason Admit Date/Time Aug 30, 2016 at 23:34 Type of Consultation: Pulmonary/critical care 24 HR Interval Summary Free Text/Dictation Patient condition remains critical. Still requiring high FiO2 for O2 saturation maintenance. Patient however has remained hemodynamically stable. No untoward events reported. General exam; middle-aged male, morbidly obese, on ventilator via endotracheal tube. Sedated. Currently in no distress. Exam/Review of Systems Vital Signs Vitals Vital Signs Date Time Temp Pulse Resp B/P Pulse Ox O2 Delivery O2 Flow Rate FiO2 09/11/16 09:00 86 20 108/82 97 Mechanical Ventilator 09/11/16 08:00 70 09/11/16 07:00 98.7 09/07/16 18:21 4.5 Intake and Output 09/10/16 09/10/16 09/11/16 15:00 23:00 07:00 Intake Total 773.410 ml 619.02 ml 481.1 ml Output Total 305 ml 425 ml 430 ml Balance 468.410 ml 194.02 ml 51.1 ml Exam HEENT exam; supple neck, no JVD. No lymphadenopathy. Midline trachea. No thyromegaly. Orally intubated. Patient has fair dentition. Pupils are equal and reactive to light. Chest examined; diminished breath sounds throughout. S1-S2 audible, no murmurs. Regular rhythm. Abdomen examination; soft, no organomegaly. Bowel sounds audible. Protuberant. Extremity exam; no peripheral edema. Pulses 1+ bilaterally. 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 Results Result Diagram: 09/10/16 0929 09/10/16 09 Results 24 hrs Laboratory Tests Test 09/11/16 05:05 Phosphorus Level 4.0 Medications Medications Current Medications Morphine Sulfate (morphine) 3 mg Q4H PRN IV PAIN; Start 08/31/16 at 01:00 Ondansetron HCl (Zofran Inj) 4 mg Q6H PRN IV NAUSEA AND/OR VOMITING; Start 02/06 at 02:00 Morphine Sulfate (morphine) 2 mg Q4H PRN IV PAIN LEVEL 7-10; Start 08/31/16 at 02:00 Aspirin (Halfprin) 81 mg DAILY PO Last administered on 09/11/16 08:14; Admin Dose 81 MG; Start 08/31/16 at 09:00 Atorvastatin Calcium (Lipitor) 10 mg QHS PO Last administered on 09/10/16 21: 46; Admin Dose 10 MG; Start 08/31/16 at 21:00 Ferrous Sulfate (Ferrous Sulfate (Ec)) 325 mg DAILY PO Last administered on 08:15; Admin Dose 325 MG; Start 08/31/16 at 09:00 Folic Acid (Folic Acid) 1 mg DAILY PO Last administered on 09/11/16 08:15; Admin Dose 1 MG; Start 08/31/16 at 09:00 Losartan Potassium (Cozaar) 50 mg BID PO Last administered on 09/07/16 08:18; Admin Dose 50 MG; Start 08/31/16 at 09:00 Multivitamins Therapeutic (Theragran) 1 tab DAILY PO Last administered on 08:15; Admin Dose 1 TAB; Start 08/31/16 at 09:00 Potassium Chloride (Klor-Con 10) 10 meq DAILY PO Last administered on 08:15; Admin Dose 10 MEQ; Start 08/31/16 at 09:00 Spironolactone (Aldactone) 50 mg DAILY PO Last administered on 09/10/16 08:16 ; Admin Dose 50 MG; Start 08/31/16 at 09:00; Status Future Hold Thiamine HCl (Vitamin B1) 100 mg DAILY PO Last administered on 09/11/16 08:15 ; Admin Dose 100 MG; Start 08/31/16 at 09:00 Famotidine (Pepcid) 20 mg BID PO Last administered on 09/11/16 08:15; Admin Dose 20 MG; Start 09/01/16 at 21:00 Digoxin (Digoxin) 0.125 mg DAILY@13 PO Last administered on 09/10/16 12:36; Admin Dose 0.125 MG; Start 09/05/16 at 13:00 Diltiazem HCl 120 mg 120 mg BID PO Last administered on 09/11/16 08:15; Admin Dose 120 MG; Start 09/04/16 at 11:00 Propofol 100 ml @ 4.695 mls/ hr Q12H IV Last administered on 09/11/16 05:00; Admin Dose 18.78 MLS/HR; Start 09/07/16 at 13:30 Piperacillin Sod/ Tazobactam Sod (Zosyn 3.375gm/ 100 ml (Pmx)) 100 ml @ 200 mls /hr Q6 IVPB Last administered on 09/11/16 06:20; Admin Dose 200 MLS/HR; Start 09/07/16 at 16:00 Lactulose 20 gm 20 gm Q8 NGT Last administered on 09/11/16 06:21; Admin Dose 20 GM; Start 09/07/16 at 16:00 Norepinephrine/ Dextrose (Levophed/D5W) 500 ml @ 1.87 mls/hr TITRATE IV Last administered on 09/08/16 01:09; Admin Dose 18.75 MLS/HR; Start 09/07/16 at 17: 00 Acetazolamide (Diamox) 250 mg TID NGT Last administered on 09/11/16 08:15; Admin Dose 250 MG; Start 09/08/16 at 21:00 IV Flush (NS 10 ml) 10 ml PRN PRN IV IV PROTOCOL; Start 09/08/16 at 17:00 Potassium Chloride (Klor-Con 20) 20 meq BID PO Last administered on 09/11/16 08:15; Admin Dose 20 MEQ; Start 09/08/16 at 21:00 ABIMAEL ZAIDI 22, 2017 10:22
[2016-09-11 11:30] LABS: AADO2 Arterial 375.8 mmHg (7.0-24.0); Allen Test ACCEPTAB; Arterial COHb 0.4 % (0.0-3.0); Arterial Fraction of Oxyhgb 92.5 % (93.0-99.0); Arterial HCO3 26.8 mmol/L (22.0-26.0); Arterial MetHb 0.3 % (0.0-1.5); Arterial Total Hemglobin 14.3 g/dl (12.0-18.0); MODE VENT - AC
--- NOTE | 2016-09-11 11:39 | PN ---
Date/Time of Note Date/Time of Note DATE: 09/11/16 TIME: 11:28 Assessment/Plan VTE Prophylaxis VTE Prophylaxis Intervention: heparin Lines/Catheters IV Catheter Type (from [facility]): PICC Line Central line still needed: Yes Urinary Cath still in place: Yes Reason Cath still needed: other (indicate) Assessment/Plan Assessment/Plan 56 yo morbidly obese M with COPD admitted for SOB. Intubated for respiratory failure. Also now with aspiration pneumonia. 1. Acute on chronic Hypoxic and hypercapnic respiratory failure. Vent dependent / intubated on 09/07/2016 2. Bilateral Aspiration pneumonia. 3. Septic Shock : improved/ now off pressors 4 S/p ACS r/o 5. Chronic obstructive pulmonary disease: Stable 6. Atrial fibrillation. Rate controlled. Unable to anticoagulate because of underlying thrombocytopenia. 7. Alcoholic liver disease with hyperammonemia 8. Thrombocytopenia. Most probably from acute alcoholic liver disease. 9. Hyponatremia associated with alcoholic liver disease- improved 10. Alcohol abuse. The patient's last drink was on the day prior to hospitalization. The patient will be maintained on a daily thiamine. Status post Librium taper. 11. Acute on chronic CHF exacerbation. Diastolic dysfunction. decompensated - monitor I/O's Continue diuretics while carefully monitoring BP. 12. Hypokalemia 13. Severe obesity with likely underlying sleep apnea and obesity/ hypoventilation syndrome. Plan. * Continue ICU monitoring. Monitor acute changes, wean off of vent. * Continue abx * replace lytes * Fluid, electrolytes and nutrition: tube feeds * Deep venous thrombosis prophylaxis. Subcutaneous heparin. Will hold this if there is worsening thrombocytopenia - SCDs * Gastrointestinal prophylaxis. H2 receptor blockers. Prognosis : Guarded CC time >35mins Subjective 24 Hr Interval Summary Free Text/Dictation Patient remains in intensive care unit, still requiring high FiO2, now off pressors. Exam/Review of Systems Vital Signs Vitals Vital Signs Date Time Temp Pulse Resp B/P Pulse Ox O2 Delivery O2 Flow Rate FiO2 09/11/16 11:00 89 21 112/68 92 Mechanical Ventilator 09/11/16 08:00 70 09/11/16 07:00 98.7 09/07/16 18:21 4.5 Intake and Output 09/10/16 09/10/16 09/11/16 15:00 23:00 07:00 Intake Total 773.410 ml 619.02 ml 481.1 ml Output Total 305 ml 425 ml 430 ml Balance 468.410 ml 194.02 ml 51.1 ml Exam GENERAL APPEARANCE: Looks comfortable on vent , morbidly obese HEENT: Orotracheally intubated, pupils equal and reactive to light LUNGS: Clear breath sounds CARDIOVASCULAR: There was an irregular rate and rhythm, heart sounds S1 and S2 only radial pulses were 2+ and symmetric. ABDOMEN: Obese, EXTREMITIES: No cyanosis, clubbing or edema. NEUROLOGIC: Sedated PSYCHIATRIC: unable to assess Results Result Diagram: 09/10/1692809/10/16928 Results 24 hrs Laboratory Tests Test 09/11/16 05:05 Phosphorus Level 4.0 Medications Medications Current Medications Morphine Sulfate (morphine) 3 mg Q4H PRN IV PAIN; Start 08/31/16 at 01:00 Ondansetron HCl (Zofran Inj) 4 mg Q6H PRN IV NAUSEA AND/OR VOMITING; Start 02/06 at 02:00 Morphine Sulfate (morphine) 2 mg Q4H PRN IV PAIN LEVEL 7-10; Start 08/31/16 at 02:00 Aspirin (Halfprin) 81 mg DAILY PO Last administered on 09/11/16 08:14; Admin Dose 81 MG; Start 08/31/16 at 09:00 Atorvastatin Calcium (Lipitor) 10 mg QHS PO Last administered on 09/10/16 21: 46; Admin Dose 10 MG; Start 08/31/16 at 21:00 Ferrous Sulfate (Ferrous Sulfate (Ec)) 325 mg DAILY PO Last administered on 08:15; Admin Dose 325 MG; Start 08/31/16 at 09:00 Folic Acid (Folic Acid) 1 mg DAILY PO Last administered on 09/11/16 08:15; Admin Dose 1 MG; Start 08/31/16 at 09:00 Losartan Potassium (Cozaar) 50 mg BID PO Last administered on 09/07/16 08:18; Admin Dose 50 MG; Start 08/31/16 at 09:00 Multivitamins Therapeutic (Theragran) 1 tab DAILY PO Last administered on 08:15; Admin Dose 1 TAB; Start 08/31/16 at 09:00 Potassium Chloride (Klor-Con 10) 10 meq DAILY PO Last administered on 08:15; Admin Dose 10 MEQ; Start 08/31/16 at 09:00 Spironolactone (Aldactone) 50 mg DAILY PO Last administered on 09/10/16 08:16 ; Admin Dose 50 MG; Start 08/31/16 at 09:00; Status Future Hold Thiamine HCl (Vitamin B1) 100 mg DAILY PO Last administered on 09/11/16 08:15 ; Admin Dose 100 MG; Start 08/31/16 at 09:00 Famotidine (Pepcid) 20 mg BID PO Last administered on 09/11/16 08:15; Admin Dose 20 MG; Start 09/01/16 at 21:00 Digoxin (Digoxin) 0.125 mg DAILY@13 PO Last administered on 09/10/16 12:36; Admin Dose 0.125 MG; Start 09/05/16 at 13:00 Diltiazem HCl 120 mg 120 mg BID PO Last administered on 09/11/16 08:15; Admin Dose 120 MG; Start 09/04/16 at 11:00 Propofol 100 ml @ 4.695 mls/ hr Q12H IV Last administered on 09/11/16 05:00; Admin Dose 18.78 MLS/HR; Start 09/07/16 at 13:30 Piperacillin Sod/ Tazobactam Sod (Zosyn 3.375gm/ 100 ml (Pmx)) 100 ml @ 200 mls /hr Q6 IVPB Last administered on 09/11/16 11:24; Admin Dose 200 MLS/HR; Start 09/07/16 at 16:00 Lactulose 20 gm 20 gm Q8 NGT Last administered on 09/11/16 06:21; Admin Dose 20 GM; Start 09/07/16 at 16:00 Norepinephrine/ Dextrose (Levophed/D5W) 500 ml @ 1.87 mls/hr TITRATE IV Last administered on 09/08/16 01:09; Admin Dose 18.75 MLS/HR; Start 09/07/16 at 17: 00 Acetazolamide (Diamox) 250 mg TID NGT Last administered on 09/11/16 08:15; Admin Dose 250 MG; Start 09/08/16 at 21:00 IV Flush (NS 10 ml) 10 ml PRN PRN IV IV PROTOCOL; Start 09/08/16 at 17:00 Potassium Chloride (Klor-Con 20) 20 meq BID PO Last administered on 09/11/16t 08:15; Admin Dose 20 MEQ; Start 09/08/16 at 21:00 Procedures Procedures PROCEDURE: XR Chest 1 view. CLINICAL INDICATION: Shortness of breath. TECHNIQUE: AP views of the chest were obtained. COMPARISON: September 08, 2016 FINDINGS: The heart is large. Calcified atherosclerosis is noted in the aorta. Endotracheal and nasogastric tubes are stable and appear in grossly appropriate locations. Right sided PICC line is unchanged. Patchy left mid and lower lung infiltrates, combined with small pleural effusion are stable. Patchy right lower lung infiltrates and small right pleural effusion have mildly decreased. The osseous structures appear grossly intact. IMPRESSION: Cardiomegaly with calcified atherosclerosis in the aorta. Stable left mid and lower lung infiltrates, combined small pleural effusion. Mild interval decrease in right lower lung infiltrates and small right pleural effusion. Moderate residual remains. RPTAT: AA .Philipp Becerra MD, Date Time Electronically viewed and signed by .Philipp Becerra MD, on 09/10/2016 14:35 .P/ CC: ABIMAEL ZAIDI BOLATITO M. Sep 11, 2016 11:39
[2016-09-11] MEDS: DIGOXIN 0.125 MG TAB PO SCH (13:11)
[2016-09-11] MEDS: DILTIAZEM 30 MG TAB NGT SCH (20:40)
[2016-09-11] MEDS: ATORVASTATIN 10 MG TAB NGT SCH (20:41)
[2016-09-11] MEDS: LOSARTAN 50 MG TAB NGT SCH (20:41)
[2016-09-11] MEDS: POTASSIUM CHLORIDE 20 MEQ POWDER FOR ORAL SOLN NGT SCH (20:42)
[2016-09-11] MEDS: FAMOTIDINE 20 MG TAB NGT SCH (20:42)
[2016-09-12] VITALS (73 sets, daily range): BP systolic 80–113; BP diastolic 49–96; PULSE 67–101; RESP 16–25
[2016-09-12] MEDS: IPRATROPIUM (HFA) 12.9 GM INHALER INH SCH ×4 (01:27→19:31)
[2016-09-12] MEDS: ALBUTEROL 18 GM INHALER INH SCH ×4 (01:28→19:31)
[2016-09-12] MEDS: PROPOFOL 100 ML IV SCH ×5 (01:54→20:28)
[2016-09-12 04:46] LABS: ADD SCAN DIFF NO
[2016-09-12 04:49] LABS: BASOPHIL # 0.1 10^3/ul (0.0-0.1); BASOPHILS % 0.5 % (0.0-2.0); EOSINOPHILS # 0.6 10^3/ul (0.0-0.5); HEMATOCRIT 40.1 % (42.0-52.0); HEMOGLOBIN 13.2 g/dl (14.0-18.0); LYMPHOCYTES % 7.2 % (15.0-51.0); MEAN CORPUSCULAR HEMOGLOBIN 29.8 pg (29.0-33.0); MEAN CORPUSCULAR HGB CONC 32.9 g/dl (32.0-37.0); MEAN CORPUSCULAR VOLUME 90.5 fl (82.0-101.0); MEAN PLATELET VOLUME 10.2 fl (7.4-10.4); MONOCYTE # 1.3 10^3/ul (0.3-0.9); MONOCYTES % 8.9 % (0.0-11.0); NEUTROPHIL # 11.2 10^3/ul (1.6-7.5); NEUTROPHILS % 78.9 % (39.0-77.0); PLATELET COUNT 121 10^3/UL (140-415); RED BLOOD COUNT 4.43 10^6/ul (4.70-6.10); RED CELL DISTRIBUTION WIDTH 15.1 % (11.5-14.5); WHITE BLOOD COUNT 14.2 10^3/ul (4.8-10.8)
[2016-09-12 05:22] LABS: ALBUMIN 3.3 g/dl (3.3-4.9); BILIRUBIN,INDIRECT 0.7 mg/dl (0-1.1); BILIRUBIN,TOTAL 0.7 mg/dl (0.2-1.3); CALCIUM 9.1 mg/dl (8.4-10.2); CREATININE 0.71 mg/dl (0.61-1.24); MAGNESIUM 1.8 mg/dl (1.7-2.5); POTASSIUM 3.4 mmol/L (3.5-5.1); TOTAL PROTEIN 6.6 g/dl (6.1-8.1)
[2016-09-12] MEDS: LACTULOSE 30ML CUP NGT SCH ×3 (05:46→22:25)
[2016-09-12] MEDS: PIPER-TAZO 3.375 GM IV (PMX) 100 ML IVPB SCH ×4 (05:46→23:28)
[2016-09-12] MEDS: POTASSIUM CHLORIDE 20 MEQ POWDER FOR ORAL SOLN NGT SCH ×2 (08:21→20:42)
[2016-09-12] MEDS: SPIRONOLACTONE 50 MG TAB NGT SCH (08:21)
[2016-09-12] MEDS: ASPIRIN 81 MG TAB NGT SCH (08:21)
[2016-09-12] MEDS: MULTIVITAMINS THERAPEUTIC TAB NGT SCH (08:22)
[2016-09-12] MEDS: THIAMINE 100 MG TAB NGT SCH (08:22)
[2016-09-12] MEDS: FAMOTIDINE 20 MG TAB NGT SCH ×2 (08:23→20:42)
[2016-09-12] MEDS: ACETAZOLAMIDE 250 MG TAB NGT SCH ×3 (08:23→20:42)
[2016-09-12] MEDS: FOLIC ACID 1 MG TAB NGT SCH (08:23)
[2016-09-12] MEDS: FERROUS SULFATE 60 MG/ML 5ML CUP NGT SCH (08:23)
--- NOTE | 2016-09-12 08:53 | CONS ---
Date/Time of Note Date/Time of Note DATE: 09/12/16 TIME: 08:51 Assessment/Plan Assessment/Plan Additional Assessment/Plan Ventilator setting; AC of 20, tidal volume 550, PEEP of 5, 60% FiO2. Patient currently on propofol drip at 25 mics per kilogram per minute. Assessment recommendations; 1. Patient admitted with hypoxemic and hypercapnic respiratory failure was doing fairly well on the medical floor when the patient developed respiratory failure due to severe mucous plugging involving left mainstem bronchus causing complete left lung atelectasis, chest x-ray markedly improved after intubation. 2. Bilateral pneumonia. 3. Underlying morbid obesity with likely underlying sleep apnea/obesity/ hypoventilation syndrome. Continue current treatment. Obtain follow-up chest x-ray. Wean down FiO2 to keep O2 saturation between 92-94%. Consultation Date/Type/Reason Admit Date/Time Aug 30, 2016 at 23:34 Type of Consultation: Pulmonary/critical care 24 HR Interval Summary Free Text/Dictation Patient condition remains critical. Still requiring full ventilator support. However FiO2 has been decreased to 60% now. Patient has remained hemodynamically stable. General exam; middle-aged male, morbidly obese, on ventilator via endotracheal tube. Sedated and currently in no distress. Exam/Review of Systems Vital Signs Vitals Vital Signs Date Time Temp Pulse Resp B/P Pulse Ox O2 Delivery O2 Flow Rate FiO2 09/12/16 07:30 99.0 82 20 93/64 97 09/12/16 06:00 Mechanical Ventilator 09/12/16 05:09 60 Intake and Output 09/11/16 09/11/16 09/12/16 15:00 23:00 07:00 Intake Total 506.580 ml 511.545 ml 541.215 ml Output Total 515 ml 455 ml 380 ml Balance -8.420 ml 56.545 ml 161.215 ml Exam HEENT exam; supple neck, no JVD. No lymphadenopathy. Midline trachea. No thyromegaly. Orally intubated. Patient has fair dentition. Pupils are midsize and reactive to light. N Chest examined; diminished but clear vessel. S1-S2 audible, no murmurs. Regular rhythm. Abdomen examination; protuberant. No organomegaly. Bowel sounds audible. Extremity exam; no peripheral edema. Pulses 1+ bilaterally. 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 Results Result Diagram: 09/12/16 0410 09/12/16 0410 Results 24 hrs Laboratory Tests Test 09/11/16 10:22 09/12/16 04:10 Blood Gas Specimen Source Blood arterial Arterial Blood Date Drawn 09/11/2016 11:00:56 AM Arterial Blood pH (Temp corrected) 7.373 Arterial Blood pCO2 (Temp correct) 47.1 H Arterial Blood pO2 (Temp corrected) 72.7 L Arterial Blood HCO3 26.8 H Arterial Blood Base Excess 1.0 Arterial Blood Oxygen Saturation 93.2 L Dilshad Test ACCEPTAB Arterial Blood Gas Puncture Site Right Radial Arterial Blood Carboxyhemoglobin 0.4 Arterial Blood Methemoglobin 0.3 Blood Gas A-a O2 Differential 375.8 H Oxyhemoglobin Percent 92.5 L Total Hemoglobin 14.3 Blood Gas Temperature 37.0 Blood Gas Respiration Rate 20.0 Blood Gas Actual Respiration Rate 20 Blood Gas Modality VENT - AC FiO2 70.0 Blood Gas Tidal Volume 550.0 Blood Gas Low PEEP Setting 5.0 Blood Gas Notified Whom JLD Blood Gas Notified Time 09/11/2016 11:30:41 AM White Blood Count 14.2 #H Red Blood Count 4.43 L Hemoglobin 13.2 L Hematocrit 40.1 L Mean Corpuscular Volume 90.5 Mean Corpuscular Hemoglobin 29.8 Mean Corpuscular Hemoglobin Concent 32.9 Red Cell Distribution Width 15.1 H Platelet Count 121 L Mean Platelet Volume 10.2 Neutrophils % 78.9 H Lymphocytes % 7.2 L Monocytes % 8.9 Eosinophils % 4.0 Basophils % 0.5 Nucleated Red Blood Cells % 0.0 Neutrophils # 11.2 H Lymphocytes # 1.0 Monocytes # 1.3 H Eosinophils # 0.6 H Basophils # 0.1 Nucleated Red Blood Cells # 0.0 Sodium Level 136 Potassium Level 3.4 L Chloride Level 103 Carbon Dioxide Level 28 Anion Gap 8 Blood Urea Nitrogen 18 Creatinine 0.71 Glucose Level 96 Calcium Level 9.1 Magnesium Level 1.8 Total Bilirubin 0.7 Direct Bilirubin 0.00 Indirect Bilirubin 0.7 Aspartate Amino Transf (AST/SGOT) 47 H Alanine Aminotransferase (ALT/SGPT) 37 Alkaline Phosphatase 94 Ammonia 55 H Total Protein 6.6 Albumin 3.3 Globulin 3.30 H Albumin/Globulin Ratio 1.00 Medications Medications Current Medications Morphine Sulfate (morphine) 3 mg Q4H PRN IV PAIN; Start 08/31/16 at 01:00 Ondansetron HCl (Zofran Inj) 4 mg Q6H PRN IV NAUSEA AND/OR VOMITING; Start 02/06 at 02:00 Morphine Sulfate 2 mg 2 mg Q4H PRN IV PAIN LEVEL 7-10; Start 08/31/16 at 02:00 Propofol 100 ml @ 4.695 mls/ hr Q12H IV Last administered on 09/12/16 05:55; Admin Dose 25.034 MLS/HR; Start 09/07/16 at 13:30 Piperacillin Sod/ Tazobactam Sod (Zosyn 3.375gm/ 100 ml (Pmx)) 100 ml @ 200 mls /hr Q6 IVPB Last administered on 09/12/16 05:46; Admin Dose 200 MLS/HR; Start 09/07/16 at 16:00 Lactulose 20 gm 20 gm Q8 NGT Last administered on 09/12/16 05:46; Admin Dose 20 GM; Start 09/07/16 at 16:00 Norepinephrine/ Dextrose (Levophed/D5W) 500 ml @ 1.87 mls/hr TITRATE IV Last administered on 09/08/16 01:09; Admin Dose 18.75 MLS/HR; Start 09/07/16 at 17: 00 Acetazolamide (Diamox) 250 mg TID NGT Last administered on 09/12/16 08:23; Admin Dose 250 MG; Start 09/08/16 at 21:00 IV Flush (NS 10 ml) 10 ml PRN PRN IV IV PROTOCOL; Start 09/08/16 at 17:00 Potassium Chloride (Potassium Chloride Pwd/Soln) 20 meq BID NGT Last administered on 09/12/16 08:21; Admin Dose 20 MEQ; Start 09/11/16 at 21:00 Aspirin (Aspirin) 81 mg DAILY NGT Last administered on 09/12/16 08:21; Admin Dose 81 MG; Start 09/12/16 at 09:00 Atorvastatin Calcium (Lipitor) 10 mg QHS NGT Last administered on 09/11/16 20: 41; Admin Dose 10 MG; Start 09/11/16 at 20:06 Digoxin (Digoxin) 0.125 mg DAILY@13 NGT ; Start 09/11/16 at 20:06 Famotidine (Pepcid) 20 mg BID NGT Last administered on 09/12/16 08:23; Admin Dose 20 MG; Start 09/11/16 at 20:06 Ferrous Sulfate (Feosol Liquid Cup) 300 mg DAILY NGT Last administered on 08:23; Admin Dose 300 MG; Start 09/12/16 at 09:00 Folic Acid (Folic Acid) 1 mg DAILY NGT Last administered on 09/12/16 08:23; Admin Dose 1 MG; Start 09/11/16 at 20:10 Losartan Potassium (Cozaar) 50 mg BID NGT ; Start 09/11/16 at 20:10 Multivitamins Therapeutic (Theragran) 1 tab DAILY NGT Last administered on 09/12 08:22; Admin Dose 1 TAB; Start 09/11/16 at 20:11 Thiamine HCl (Vitamin B1) 100 mg DAILY NGT Last administered on 09/12/16 08:22 ; Admin Dose 100 MG; Start 09/11/16 at 20:11 Spironolactone (Aldactone) 50 mg DAILY NGT Last administered on 09/12/16 08:21 ; Admin Dose 50 MG; Start 09/12/16 at 09:00 Diltiazem HCl (Cardizem) 60 mg QID NGT ; Start 09/11/16 at 21:00 ABIMAEL ZAIDI 23, 2017 08:53
[2016-09-12] MEDS: LOSARTAN 50 MG TAB NGT SCH ×2 (09:00→20:43)
[2016-09-12] MEDS: DILTIAZEM 30 MG TAB NGT SCH ×4 (09:00→20:43)
--- NOTE | 2016-09-12 09:42 | RADRPT ---
PROCEDURE: XR Chest. CLINICAL INDICATION: Pneumonia TECHNIQUE: An AP view of the chest was obtained. COMPARISON: Chest x-ray dated 09/10/2016 FINDINGS: The endotracheal tube tip is approximately 7.2 cm above the amber, at the level of the clavicular h karel. The tip of the enteric tube extends below the left diaphragm. There is a right upper extremit y PICC line with tip near the cavoatrial junction. Lung volumes are low. There is prominence of the interstitial and central pulmonary vascular mell ngs a small right pleural effusion. There is consolidation of the left lower lobe and lingula. No p neumothorax is seen. The cardiomediastinal silhouette is mildly enlarged . Calcifications are seen within the aortic arch. The osseous structures demonstrate senescent changes. IMPRESSION: 1. Consolidation of the left lower lobe and lingula. Findings may reflect atelectasis or pneumonia . Overall, no significant interval change. 2. Low lung volumes with pulmonary vascular congestion a small right pleural effusion, also unchan ged. 3. Mild cardiomegaly and aortic atherosclerosis. 4. Tubes and lines, as described above. The endotracheal tube tip is 7 cm above the amber at the l evel of the clavicular heads. Advancing 4 cm is recommended. RPTAT: HH .Geeta Escoto MD, MD Date Time Electronically viewed and signed by .Geeta Escoto MD, on 09/12/2016 09:41 .G/
--- NOTE | 2016-09-12 10:50 | RADRPT ---
PROCEDURE: XR Chest 1 view. CLINICAL INDICATION: Shortness of breath. TECHNIQUE: AP views of the chest were obtained. COMPARISON: September 12, 2016 at 05:30 a.m. FINDINGS: The heart is large. Calcified atherosclerosis is noted in the aorta. Endotracheal tube has its tip approximately 6.0 cm above the amber. Nasogastric tube is stable. Right-sided PICC line is unchang ed. Patchy infiltrates in the left upper and lower lobes combined small to moderate pleural effusio n are similar to prior exam, given differences in technique. Right lower lobe infiltrates, combined small to moderate pleural effusion have increased. The osseous structures are unchanged. IMPRESSION: Cardiomegaly with calcified atherosclerosis in the aorta. Endotracheal tube with its tip approximately 6.0 cm above the amber. Advancement by approximately 2 cm can be considered. Interval increase in right lower lobe infiltrates, combined with small to moderate pleural effusion. Stable patchy infiltrates in the left upper and lower lobes, combined with small to moderate pleural effusion. RPTAT: AA .Philipp Becerra MD, MD Date Time Electronically viewed and signed by .Philipp Becerra MD, on 09/12/2016 10:50 .P/
[2016-09-12] MEDS: DIGOXIN 0.125 MG TAB NGT SCH (12:26)
--- NOTE | 2016-09-12 15:38 | CONS ---
Date/Time of Note Date/Time of Note DATE: 09/12/16 TIME: 15:36 Assessment/Plan Assessment/Plan Additional Assessment/Plan 1. Acute on chronic Hypoxic and hypercapnic respiratory failure. 2. Aspiration pneumonia. 3. Hypotension. 4. Chest pain. 5. Chronic obstructive pulmonary disease. 6. Atrial fibrillation. 7. Alcoholic liver disease. 8. Thrombocytopenia. 9. Hyponatremia 10. Alcohol abuse. 11. Acute on chronic CHF exacerbation. Diastolic dysfunction. 12. Hypomagnesemia- Resolved 13. Hypokalemia 14. Pre Renal- Resolved Cont to monitor UO, Electrolytes, Volume status and renal functions closely Renal function stable. Supplement K Thank you for the opportunity to participate in the care of Mr Marrero. Consultation Date/Type/Reason Admit Date/Time Aug 30, 2016 at 23:34 Type of Consultation: Renal 24 HR Interval Summary Free Text/Dictation Off pressors Subjective hx not possible: pt critical status Constitutional: requiring O2 Exam/Review of Systems Vital Signs Vitals Vital Signs Date Time Temp Pulse Resp B/P Pulse Ox O2 Delivery O2 Flow Rate FiO2 09/12/16 15:01 71 21 95 40 09/12/16 13:00 82/54 09/12/16 12:00 98.6 09/12/16 06:00 Mechanical Ventilator Intake and Output 09/11/16 09/11/16 09/12/16 15:00 23:00 07:00 Intake Total 506.580 ml 511.545 ml 589.960 ml Output Total 515 ml 455 ml 430 ml Balance -8.420 ml 56.545 ml 159.960 ml Exam ENMT: intubated, mucosa pink and moist Neck: No jvd Respiratory: crackles/rales Cardiovascular: edema Gastrointestinal: soft, No tender Extremities: pitting pedal edema Neurological: other (sedated) Results Result Diagram: 09/12/16 0410 09/12/16 0410 Results 24 hrs Laboratory Tests Test 09/12/16 04:10 White Blood Count 14.2 #H Red Blood Count 4.43 L Hemoglobin 13.2 L Hematocrit 40.1 L Mean Corpuscular Volume 90.5 Mean Corpuscular Hemoglobin 29.8 Mean Corpuscular Hemoglobin Concent 32.9 Red Cell Distribution Width 15.1 H Platelet Count 121 L Mean Platelet Volume 10.2 Neutrophils % 78.9 H Lymphocytes % 7.2 L Monocytes % 8.9 Eosinophils % 4.0 Basophils % 0.5 Nucleated Red Blood Cells % 0.0 Neutrophils # 11.2 H Lymphocytes # 1.0 Monocytes # 1.3 H Eosinophils # 0.6 H Basophils # 0.1 Nucleated Red Blood Cells # 0.0 Sodium Level 136 Potassium Level 3.4 L Chloride Level 103 Carbon Dioxide Level 28 Anion Gap 8 Blood Urea Nitrogen 18 Creatinine 0.71 Glucose Level 96 Calcium Level 9.1 Magnesium Level 1.8 Total Bilirubin 0.7 Direct Bilirubin 0.00 Indirect Bilirubin 0.7 Aspartate Amino Transf (AST/SGOT) 47 H Alanine Aminotransferase (ALT/SGPT) 37 Alkaline Phosphatase 94 Ammonia 55 H Total Protein 6.6 Albumin 3.3 Globulin 3.30 H Albumin/Globulin Ratio 1.00 Medications Medications Current Medications Morphine Sulfate (morphine) 3 mg Q4H PRN IV PAIN; Start 08/31/16 at 01:00 Ondansetron HCl (Zofran Inj) 4 mg Q6H PRN IV NAUSEA AND/OR VOMITING; Start 02/06 at 02:00 Morphine Sulfate 2 mg 2 mg Q4H PRN IV PAIN LEVEL 7-10; Start 08/31/16 at 02:00 Propofol 100 ml @ 4.695 mls/ hr Q12H IV Last administered on 09/12/16 15:13; Admin Dose 18.78 MLS/HR; Start 09/07/16 at 13:30 Piperacillin Sod/ Tazobactam Sod (Zosyn 3.375gm/ 100 ml (Pmx)) 100 ml @ 200 mls /hr Q6 IVPB Last administered on 09/12/16 12:25; Admin Dose 200 MLS/HR; Start 09/07/16 at 16:00 Lactulose 20 gm 20 gm Q8 NGT Last administered on 09/12/16 13:56; Admin Dose 20 GM; Start 09/07/16 at 16:00 Norepinephrine/ Dextrose (Levophed/D5W) 500 ml @ 1.87 mls/hr TITRATE IV Last administered on 09/08/16 01:09; Admin Dose 18.75 MLS/HR; Start 09/07/16 at 17: 00 Acetazolamide (Diamox) 250 mg TID NGT Last administered on 09/12/16 12:37; Admin Dose 250 MG; Start 09/08/16 at 21:00 IV Flush (NS 10 ml) 10 ml PRN PRN IV IV PROTOCOL; Start 09/08/16 at 17:00 Potassium Chloride (Potassium Chloride Pwd/Soln) 20 meq BID NGT Last administered on 09/12/16 08:21; Admin Dose 20 MEQ; Start 09/11/16 at 21:00 Aspirin (Aspirin) 81 mg DAILY NGT Last administered on 09/12/16 08:21; Admin Dose 81 MG; Start 09/12/16 at 09:00 Atorvastatin Calcium (Lipitor) 10 mg QHS NGT Last administered on 09/11/16 20: 41; Admin Dose 10 MG; Start 09/11/16 at 20:06 Digoxin (Digoxin) 0.125 mg DAILY@13 NGT Last administered on 09/12/16 12:26; Admin Dose 0.125 MG; Start 09/11/16 at 20:06 Famotidine (Pepcid) 20 mg BID NGT Last administered on 09/12/16 08:23; Admin Dose 20 MG; Start 09/11/16 at 20:06 Ferrous Sulfate (Feosol Liquid Cup) 300 mg DAILY NGT Last administered on 08:23; Admin Dose 300 MG; Start 09/12/16 at 09:00 Folic Acid (Folic Acid) 1 mg DAILY NGT Last administered on 09/12/16 08:23; Admin Dose 1 MG; Start 09/11/16 at 20:10 Losartan Potassium (Cozaar) 50 mg BID NGT ; Start 09/11/16 at 20:10 Multivitamins Therapeutic (Theragran) 1 tab DAILY NGT Last administered on 09/12 08:22; Admin Dose 1 TAB; Start 09/11/16 at 20:11 Thiamine HCl (Vitamin B1) 100 mg DAILY NGT Last administered on 09/12/16 08:22 ; Admin Dose 100 MG; Start 09/11/16 at 20:11 Spironolactone (Aldactone) 50 mg DAILY NGT Last administered on 09/12/16 08:21 ; Admin Dose 50 MG; Start 09/12/16 at 09:00 Diltiazem HCl (Cardizem) 60 mg QID NGT ; Start 09/11/16 at 21:00 Procedures Procedures PROCEDURE: XR Chest. CLINICAL INDICATION: Pneumonia TECHNIQUE: An AP view of the chest was obtained. COMPARISON: Chest x-ray dated 09/10/2016 FINDINGS: The endotracheal tube tip is approximately 7.2 cm above the amber, at the level of the clavicular heads. The tip of the enteric tube extends below the left diaphragm. There is a right upper extremity PICC line with tip near the cavoatrial junction. Lung volumes are low. There is prominence of the interstitial and central pulmonary vascular markings a small right pleural effusion. There is consolidation of the left lower lobe and lingula. No pneumothorax is seen. The cardiomediastinal silhouette is mildly enlarged . Calcifications are seen within the aortic arch. The osseous structures demonstrate senescent changes. IMPRESSION: 1. Consolidation of the left lower lobe and lingula. Findings may reflect atelectasis or pneumonia. Overall, no significant interval change. 2. Low lung volumes with pulmonary vascular congestion a small right pleural effusion, also unchanged. 3. Mild cardiomegaly and aortic atherosclerosis. 4. Tubes and lines, as described above. The endotracheal tube tip is 7 cm above the amber at the level of the clavicular heads. Advancing 4 cm is recommended. RPTAT: OLENA ALFARO MD Sep 12, 2016 15:37
--- NOTE | 2016-09-12 16:31 | PN ---
Date/Time of Note Date/Time of Note DATE: 09/12/16 TIME: 16:30 Assessment/Plan VTE Prophylaxis VTE Prophylaxis Intervention: SCD's VTE Contraindication Reason: thrombocytopenia Lines/Catheters IV Catheter Type (from Nrs): PICC Line Central line still needed: Yes Urinary Cath still in place: Yes Reason Cath still needed: other (indicate) Assessment/Plan Assessment/Plan 56 yo morbidly obese M with COPD admitted for SOB. Intubated for respiratory failure. Also now with aspiration pneumonia. 1. Acute on chronic Hypoxic and hypercapnic respiratory failure. Vent dependent / intubated on 09/07/2016 2. Bilateral Aspiration pneumonia. 3. Septic Shock : improved/ now off pressors 4 S/p ACS r/o 5. Chronic obstructive pulmonary disease: Stable 6. Atrial fibrillation. Rate controlled. Unable to anticoagulate because of underlying thrombocytopenia. 7. Alcoholic liver disease with hyperammonemia 8. Thrombocytopenia. Most probably from acute alcoholic liver disease. 9. Hyponatremia associated with alcoholic liver disease- improved 10. Alcohol abuse. The patient's last drink was on the day prior to hospitalization. The patient will be maintained on a daily thiamine. Status post Librium taper. 11. Acute on chronic CHF exacerbation. Diastolic dysfunction. decompensated - monitor I/O's Continue diuretics while carefully monitoring BP. 12. Hypokalemia 13. Severe obesity with likely underlying sleep apnea and obesity/ hypoventilation syndrome. Plan. * Continue ICU monitoring. Monitor acute changes, Continue to try to wean off of vent. * Continue abx * replace lytes * Fluid, electrolytes and nutrition: tube feeds * Deep venous thrombosis prophylaxis: SCDs * Gastrointestinal prophylaxis. H2 receptor blockers. Prognosis : Guarded CC time >35mins Subjective 24 Hr Interval Summary Free Text/Dictation Patient remains in intensive care unit, still off pressors, FiO2 slightly weaned down. Exam/Review of Systems Vital Signs Vitals Vital Signs Date Time Temp Pulse Resp B/P Pulse Ox O2 Delivery O2 Flow Rate FiO2 09/12/16 16:00 74 09/12/16 15:01 21 95 40 09/12/16 13:00 82/54 09/12/16 12:00 98.6 09/12/16 06:00 Mechanical Ventilator Intake and Output 09/11/16 09/11/16 09/12/16 15:00 23:00 07:00 Intake Total 506.580 ml 511.545 ml 589.960 ml Output Total 515 ml 455 ml 430 ml Balance -8.420 ml 56.545 ml 159.960 ml Exam GENERAL APPEARANCE: Looks comfortable on vent , morbidly obese HEENT: Orotracheally intubated, pupils equal and reactive to light LUNGS: Clear breath sounds CARDIOVASCULAR: There was an irregular rate and rhythm, heart sounds S1 and S2 only radial pulses were 2+ and symmetric. ABDOMEN: Obese, EXTREMITIES: No cyanosis, clubbing or edema. NEUROLOGIC: Sedated PSYCHIATRIC: unable to assess Results Result Diagram: 09/12/1640909/12/16409 Results 24 hrs Laboratory Tests Test 09/12/16 04:10 White Blood Count 14.2 #H Red Blood Count 4.43 L Hemoglobin 13.2 L Hematocrit 40.1 L Mean Corpuscular Volume 90.5 Mean Corpuscular Hemoglobin 29.8 Mean Corpuscular Hemoglobin Concent 32.9 Red Cell Distribution Width 15.1 H Platelet Count 121 L Mean Platelet Volume 10.2 Neutrophils % 78.9 H Lymphocytes % 7.2 L Monocytes % 8.9 Eosinophils % 4.0 Basophils % 0.5 Nucleated Red Blood Cells % 0.0 Neutrophils # 11.2 H Lymphocytes # 1.0 Monocytes # 1.3 H Eosinophils # 0.6 H Basophils # 0.1 Nucleated Red Blood Cells # 0.0 Sodium Level 136 Potassium Level 3.4 L Chloride Level 103 Carbon Dioxide Level 28 Anion Gap 8 Blood Urea Nitrogen 18 Creatinine 0.71 Glucose Level 96 Calcium Level 9.1 Magnesium Level 1.8 Total Bilirubin 0.7 Direct Bilirubin 0.00 Indirect Bilirubin 0.7 Aspartate Amino Transf (AST/SGOT) 47 H Alanine Aminotransferase (ALT/SGPT) 37 Alkaline Phosphatase 94 Ammonia 55 H Total Protein 6.6 Albumin 3.3 Globulin 3.30 H Albumin/Globulin Ratio 1.00 Medications Medications Current Medications Morphine Sulfate (morphine) 3 mg Q4H PRN IV PAIN; Start 08/31/16 at 01:00 Ondansetron HCl (Zofran Inj) 4 mg Q6H PRN IV NAUSEA AND/OR VOMITING; Start 02/06 at 02:00 Morphine Sulfate 2 mg 2 mg Q4H PRN IV PAIN LEVEL 7-10; Start 08/31/16 at 02:00 Propofol 100 ml @ 4.695 mls/ hr Q12H IV Last administered on 09/12/16 15:13; Admin Dose 18.78 MLS/HR; Start 09/07/16 at 13:30 Piperacillin Sod/ Tazobactam Sod (Zosyn 3.375gm/ 100 ml (Pmx)) 100 ml @ 200 mls /hr Q6 IVPB Last administered on 09/12/16 12:25; Admin Dose 200 MLS/HR; Start 09/07/16 at 16:00 Lactulose 20 gm 20 gm Q8 NGT Last administered on 09/12/16 13:56; Admin Dose 20 GM; Start 09/07/16 at 16:00 Norepinephrine/ Dextrose (Levophed/D5W) 500 ml @ 1.87 mls/hr TITRATE IV Last administered on 09/08/16 01:09; Admin Dose 18.75 MLS/HR; Start 09/07/16 at 17: 00 Acetazolamide (Diamox) 250 mg TID NGT Last administered on 09/12/16 12:37; Admin Dose 250 MG; Start 09/08/16 at 21:00 IV Flush (NS 10 ml) 10 ml PRN PRN IV IV PROTOCOL; Start 09/08/16 at 17:00 Potassium Chloride (Potassium Chloride Pwd/Soln) 20 meq BID NGT Last administered on 09/12/16 08:21; Admin Dose 20 MEQ; Start 09/11/16 at 21:00 Aspirin (Aspirin) 81 mg DAILY NGT Last administered on 09/12/16 08:21; Admin Dose 81 MG; Start 09/12/16 at 09:00 Atorvastatin Calcium (Lipitor) 10 mg QHS NGT Last administered on 09/11/16 20: 41; Admin Dose 10 MG; Start 09/11/16 at 20:06 Digoxin (Digoxin) 0.125 mg DAILY@13 NGT Last administered on 09/12/16 12:26; Admin Dose 0.125 MG; Start 09/11/16 at 20:06 Famotidine (Pepcid) 20 mg BID NGT Last administered on 09/12/16 08:23; Admin Dose 20 MG; Start 09/11/16 at 20:06 Ferrous Sulfate (Feosol Liquid Cup) 300 mg DAILY NGT Last administered on 08:23; Admin Dose 300 MG; Start 09/12/16 at 09:00 Folic Acid (Folic Acid) 1 mg DAILY NGT Last administered on 09/12/16 08:23; Admin Dose 1 MG; Start 09/11/16 at 20:10 Losartan Potassium (Cozaar) 50 mg BID NGT ; Start 09/11/16 at 20:10 Multivitamins Therapeutic (Theragran) 1 tab DAILY NGT Last administered on 09/12 08:22; Admin Dose 1 TAB; Start 09/11/16 at 20:11 Thiamine HCl (Vitamin B1) 100 mg DAILY NGT Last administered on 09/12/16 08:22 ; Admin Dose 100 MG; Start 09/11/16 at 20:11 Spironolactone (Aldactone) 50 mg DAILY NGT Last administered on 09/12/16 08:21 ; Admin Dose 50 MG; Start 09/12/16 at 09:00 Diltiazem HCl (Cardizem) 60 mg QID NGT ; Start 09/11/16 at 21:00 REBECCA JARAMILLO Sep 12, 2016 16:31
[2016-09-12] MEDS ORDERED: POTASSIUM CHLORIDE 250 ML IVPB ONE (17:00)
[2016-09-12] MEDS: ATORVASTATIN 10 MG TAB NGT SCH (20:42)
--- NOTE | 2016-09-12 22:54 | RADRPT ---
PROCEDURE: XR Chest. CLINICAL INDICATION: Endotracheal tube placement. TECHNIQUE: Single AP portable chest COMPARISON: 09/12/2016 Chest x-ray FINDINGS: Cardiac silhouette is enlarged with marked vascular congestion bilateral pleural effusions left grea ter than right. Slight improvement compared to prior study. The endotracheal tube tip is 4.9 cm abov e the amber. The NG tube tip overlies the fundus of the stomach. Atherosclerotic calcification o f the aorta. No pneumothorax. The osseous structures and soft tissues are unremarkable. IMPRESSION: 1. CHF with slight interval improvement compared to 09/12/2016 . Support devices in satisfactory pos ition. RPTAT:AAJJ Physician Clarence Date Time Electronically viewed and signed by Physician Clarence on 09/12/2016 22:54 BERTA/
--- NOTE | 2016-09-12 23:00 | CONS ---
Date/Time of Note Date/Time of Note DATE: 09/12/16 TIME: 22:47 Assessment/Plan Assessment/Plan Additional Assessment/Plan Potassium being replaced. Renal fn has improved. Consultation Date/Type/Reason Admit Date/Time Aug 30, 2016 at 23:34 Initial Consult Date Pt was seen on 09/11/16 at 9:30 AM Type of Consultation: Renal 24 HR Interval Summary Free Text/Dictation Vent dependent Subjective hx not possible: pt non-verbal Detailed Summary Respiratory: other (vent dependent) Genitourinary: other (parra in place) Exam/Review of Systems Vital Signs Vitals Vital Signs 98.4 Mechanical Ventilator Intake and Output 09/11/16 09/11/16 15:00 23:00 0 Intake Total 506.580 ml 511.545 ml l Output Total 515 ml 455 ml l Balance -8.420 ml 56.545 ml 1l Exam Constitutional: distress, obese Psych: nl mood/affect, no complaints Head: atraumatic, normocephalic Eyes: PERRL ENMT: intubated Neck: non-tender, supple Respiratory: clear to auscultation, normal air movement Cardiovascular: nl pulses, regular rate and rhythm Gastrointestinal: distended, other (?Ascites) Genitourinary - Male: other (Parra in place) Musculoskeletal: nl extremities to inspection, nl gait and stance Extremities: edema Neurological: SUSTAINABLE SYSTEMS ANALYST II-XII intact, nl mental status, nl speech, nl strength Skin: nl turgor, No rash or lesions Lymph: nl lymph nodes Results Low K being replaced Result Diagram: 09/12/1640909/12/16 0410 Results 24 hrs Laboratory Tests Globulin 3.30 H Albumin/Globulin Ratio 1.00 Medications Medications Current Medications Morphine Sulfate (morphine) 3 mg Q4H PRN IV PAIN; Start 08/31/16 at 01:00 Ondansetron HCl (Zofran Inj) 4 mg Q6H PRN IV NAUSEA AND/OR VOMITING; Start 02/06 at 02:00 Morphine Sulfate 2 mg 2 mg Q4H PRN IV PAIN LEVEL 7-10; Start 08/31/16 at 02:00 Propofol 100 ml @ 4.695 mls/ hr Q12H IV Last administered on 09/12/16t 20:28; Admin Dose 18.592 MLS/HR; Start 09/07/16 at 13:30 Piperacillin Sod/ Tazobactam Sod (Zosyn 3.375gm/ 100 ml (Pmx)) 100 ml @ 200 mls /hr Q6 IVPB Last administered on 09/12/16 17:57; Admin Dose 200 MLS/HR; Start 09/07/16 at 16:00 Lactulose 20 gm 20 gm Q8 NGT Last administered on 09/12/16 22:25; Admin Dose 20 GM; Start 09/07/16 at 16:00 Norepinephrine/ Dextrose (Levophed/D5W) 500 ml @ 1.87 mls/hr TITRATE IV Last administered on 09/08/16 01:09; Admin Dose 18.75 MLS/HR; Start 09/07/16 at 17: 00 Acetazolamide (Diamox) 250 mg TID NGT Last administered on 09/12/16 20:42; Admin Dose 250 MG; Start 09/08/16 at 21:00 IV Flush (NS 10 ml) 10 ml PRN PRN IV IV PROTOCOL; Start 09/08/16 at 17:00 Potassium Chloride (Potassium Chloride Pwd/Soln) 20 meq BID NGT Last administered on 09/12/16 20:42; Admin Dose 20 MEQ; Start 09/11/16 at 21:00 Aspirin (Aspirin) 81 mg DAILY NGT Last administered on 09/12/16 08:21; Admin Dose 81 MG; Start 09/12/16 at 09:00 Atorvastatin Calcium (Lipitor) 10 mg QHS NGT Last administered on 09/12/16 20: 42; Admin Dose 10 MG; Start 09/11/16 at 20:06 Digoxin (Digoxin) 0.125 mg DAILY@13 NGT Last administered on 09/12/16 12:26; Admin Dose 0.125 MG; Start 09/11/16 at 20:06 Famotidine (Pepcid) 20 mg BID NGT Last administered on 09/12/16 20:42; Admin Dose 20 MG; Start 09/11/16 at 20:06 Ferrous Sulfate (Feosol Liquid Cup) 300 mg DAILY NGT Last administered on 08:23; Admin Dose 300 MG; Start 09/12/16 at 09:00 Folic Acid (Folic Acid) 1 mg DAILY NGT Last administered on 09/12/16 08:23; Admin Dose 1 MG; Start 09/11/16 at 20:10 Losartan Potassium (Cozaar) 50 mg BID NGT ; Start 09/11/16 at 20:10 Multivitamins Therapeutic (Theragran) 1 tab DAILY NGT Last administered on 09/12 08:22; Admin Dose 1 TAB; Start 09/11/16 at 20:11 Thiamine HCl (Vitamin B1) 100 mg DAILY NGT Last administered on 09/12/16 08:22 ; Admin Dose 100 MG; Start 09/11/16 at 20:11 Spironolactone (Aldactone) 50 mg DAILY NGT Last administered on 09/12/16 08:21 ; Admin Dose 50 MG; Start 09/12/16 at 09:00 Diltiazem HCl (Cardizem) 60 mg QID NGT ; Start 09/11/16 at 21:00 SHANDRA TIJERINA MD Sep 12, 2016 22:58
[2016-09-13] VITALS (58 sets, daily range): BP systolic 87–126; BP diastolic 56–89; PULSE 74–101; RESP 18–32
[2016-09-13] MEDS: IPRATROPIUM (HFA) 12.9 GM INHALER INH SCH ×4 (01:21→21:08)
[2016-09-13] MEDS: PROPOFOL 100 ML IV SCH ×4 (02:14→23:07)
--- NOTE | 2016-09-13 05:04 | CONS ---
DATE OF ADMISSION: 08/30/2016 DATE OF CONSULTATION: 09/11/2016 HISTORY OF PRESENT ILLNESS: This is a 56-year-old male who is unable to provide history. The patie nt has known history of chronic liver disease and was admitted with altered mental status. The mikael ent has been treated for hepatic encephalopathy and has gone on to develop respiratory failure requi ring ventilator support. The patient had some degree of prerenal azotemia which has since been corrected, and presently he damon s been closely followed by pulmonary. Serial blood gases have shown marked improvement. He had epi sode of respiratory acidosis and metabolic alkalosis for which Diamox was utilized, and that has imp roved the blood gases rather significantly. The patient is reasonably stable now, and unfortunately continues to require ventilator support. Overall, electrolytes have been closely followed. This n ote pertains to 09/11/2016 when he was seen at 8:30 in the morning. His potassium was low and is be ing replaced. Dictated By: SHANDRA MYLES/MATT Conf#: [id number] DID#: [id number]
[2016-09-13 05:09] LABS: ADD SCAN DIFF NO
[2016-09-13 05:15] LABS: BASOPHIL # 0.1 10^3/ul (0.0-0.1); BASOPHILS % 0.5 % (0.0-2.0); EOSINOPHILS # 0.5 10^3/ul (0.0-0.5); EOSINOPHILS % 4.4 % (0.0-7.0); HEMATOCRIT 39.2 % (42.0-52.0); HEMOGLOBIN 12.6 g/dl (14.0-18.0); LYMPHOCYTES # 1.1 10^3/ul (0.8-2.9); LYMPHOCYTES % 10.3 % (15.0-51.0); MEAN CORPUSCULAR HEMOGLOBIN 29.2 pg (29.0-33.0); MEAN CORPUSCULAR HGB CONC 32.1 g/dl (32.0-37.0); MEAN CORPUSCULAR VOLUME 90.7 fl (82.0-101.0); MEAN PLATELET VOLUME 10.7 fl (7.4-10.4); MONOCYTE # 0.9 10^3/ul (0.3-0.9); NEUTROPHIL # 7.7 10^3/ul (1.6-7.5); NEUTROPHILS % 75.5 % (39.0-77.0); PLATELET COUNT 105 10^3/UL (140-415); RED BLOOD COUNT 4.32 10^6/ul (4.70-6.10); WHITE BLOOD COUNT 10.2 10^3/ul (4.8-10.8)
[2016-09-13 05:42] LABS: ALBUMIN 3.1 g/dl (3.3-4.9); ALBUMIN/GLOBULIN RATIO 0.96; BILIRUBIN,INDIRECT 0.6 mg/dl (0-1.1); BILIRUBIN,TOTAL 0.6 mg/dl (0.2-1.3); CALCIUM 9.3 mg/dl (8.4-10.2); CREATININE 0.67 mg/dl (0.61-1.24); POTASSIUM 3.7 mmol/L (3.5-5.1); TOTAL PROTEIN 6.3 g/dl (6.1-8.1)
[2016-09-13] MEDS: LACTULOSE 30ML CUP NGT SCH ×3 (06:47→21:57)
[2016-09-13] MEDS: PIPER-TAZO 3.375 GM IV (PMX) 100 ML IVPB SCH ×4 (06:47→23:32)
[2016-09-13] MEDS: ALBUTEROL 18 GM INHALER INH SCH ×3 (07:20→21:08)
--- NOTE | 2016-09-13 08:39 | CONS ---
Date/Time of Note Date/Time of Note DATE: 09/13/16 TIME: 08:35 Assessment/Plan Assessment/Plan Additional Assessment/Plan Chest x-ray was reviewed from late yesterday morning which is showing left upper lobe infiltrative changes. Endotracheal tube is at an adequate level. Ventilator setting; AC of 20, tidal volume 550, PEEP of 5, 60% FiO2. Patient currently on propofol at 20 mics per kilo per minute. Assessment recommendations; 1. Patient admitted with hypercapnic and hypoxic respiratory failure due to underlying obesity/hypoventilation syndrome. 2. Left lower lobe pneumonia. 3. Patient developed respiratory failure after developing complete left lung atelectasis likely due to mainstem mucous plugging with marked reexpansion of the lung after intubation. Continue current treatment. Consultation Date/Type/Reason Admit Date/Time Aug 30, 2016 at 23:34 Type of Consultation: Pulmonary/critical care 24 HR Interval Summary Free Text/Dictation Patient's condition remains critical. Still requiring full ventilator support. Has remained hemodynamically stable. General exam; middle-aged male, morbidly obese, orally intubated, sedated. Currently in no distress. Exam/Review of Systems Vital Signs Vitals Vital Signs Date Time Temp Pulse Resp B/P Pulse Ox O2 Delivery O2 Flow Rate FiO2 09/13/16 06:45 93 22 112/82 95 09/13/16 05:00 50 09/13/16 02:00 98.0 09/12/16 23:00 Mechanical Ventilator Intake and Output 09/12/16 09/12/16 09/13/16 15:00 23:00 07:00 Intake Total 716.205 ml 431.46 ml 450.15 ml Output Total 405 ml 400 ml 370 ml Balance 311.205 ml 31.46 ml 80.15 ml Exam HEENT exam; supple neck, or intubated. Patient has fair dentition. Pupils are small bilaterally. No neck masses. No thyromegaly. Chest exam; diminished but clear vessel. S1-S2 audible, no murmurs. Regular rhythm. Abdomen examination; soft, protuberant. No organomegaly. Bowel sounds audible. Extremity exam; no peripheral edema. Pulses 1+ bilaterally. PATIENTS TRANSPORTER exam; patient is sedated. Results Result Diagram: 09/13/16 0400 09/13/16 0400 Results 24 hrs Laboratory Tests Test 09/13/16 04:00 White Blood Count 10.2 # Red Blood Count 4.32 L Hemoglobin 12.6 L Hematocrit 39.2 L Mean Corpuscular Volume 90.7 Mean Corpuscular Hemoglobin 29.2 Mean Corpuscular Hemoglobin Concent 32.1 Red Cell Distribution Width 15.0 H Platelet Count 105 L Mean Platelet Volume 10.7 H Neutrophils % 75.5 Lymphocytes % 10.3 L Monocytes % 9.0 Eosinophils % 4.4 Basophils % 0.5 Nucleated Red Blood Cells % 0.0 Neutrophils # 7.7 H Lymphocytes # 1.1 Monocytes # 0.9 Eosinophils # 0.5 Basophils # 0.1 Nucleated Red Blood Cells # 0.0 Sodium Level 141 Potassium Level 3.7 Chloride Level 108 Carbon Dioxide Level 25 Anion Gap 12 Blood Urea Nitrogen 17 Creatinine 0.67 Glucose Level 88 Calcium Level 9.3 Total Bilirubin 0.6 Direct Bilirubin 0.00 Indirect Bilirubin 0.6 Aspartate Amino Transf (AST/SGOT) 46 Alanine Aminotransferase (ALT/SGPT) 33 Alkaline Phosphatase 94 Total Protein 6.3 Albumin 3.1 L Globulin 3.20 Albumin/Globulin Ratio 0.96 Medications Medications Current Medications Morphine Sulfate (morphine) 3 mg Q4H PRN IV PAIN; Start 08/31/16 at 01:00 Ondansetron HCl (Zofran Inj) 4 mg Q6H PRN IV NAUSEA AND/OR VOMITING; Start 02/06 at 02:00 Morphine Sulfate 2 mg 2 mg Q4H PRN IV PAIN LEVEL 7-10; Start 08/31/16 at 02:00 Propofol 100 ml @ 4.695 mls/ hr Q12H IV Last administered on 09/13/16 02:14; Admin Dose 19.043 MLS/HR; Start 09/07/16 at 13:30 Piperacillin Sod/ Tazobactam Sod (Zosyn 3.375gm/ 100 ml (Pmx)) 100 ml @ 200 mls /hr Q6 IVPB Last administered on 09/13/16 06:47; Admin Dose 200 MLS/HR; Start 09/07/16 at 16:00 Lactulose 20 gm 20 gm Q8 NGT Last administered on 09/13/16 06:47; Admin Dose 20 GM; Start 09/07/16 at 16:00 Norepinephrine/ Dextrose (Levophed/D5W) 500 ml @ 1.87 mls/hr TITRATE IV Last administered on 09/08/16 01:09; Admin Dose 18.75 MLS/HR; Start 09/07/16 at 17: 00 Acetazolamide (Diamox) 250 mg TID NGT Last administered on 09/12/16 20:42; Admin Dose 250 MG; Start 09/08/16 at 21:00 IV Flush (NS 10 ml) 10 ml PRN PRN IV IV PROTOCOL; Start 09/08/16 at 17:00 Potassium Chloride (Potassium Chloride Pwd/Soln) 20 meq BID NGT Last administered on 09/12/16 20:42; Admin Dose 20 MEQ; Start 09/11/16 at 21:00 Aspirin (Aspirin) 81 mg DAILY NGT Last administered on 09/12/16 08:21; Admin Dose 81 MG; Start 09/12/16 at 09:00 Atorvastatin Calcium (Lipitor) 10 mg QHS NGT Last administered on 09/12/16 20: 42; Admin Dose 10 MG; Start 09/11/16 at 20:06 Digoxin (Digoxin) 0.125 mg DAILY@13 NGT Last administered on 09/12/16 12:26; Admin Dose 0.125 MG; Start 09/11/16 at 20:06 Famotidine (Pepcid) 20 mg BID NGT Last administered on 09/12/16 20:42; Admin Dose 20 MG; Start 09/11/16 at 20:06 Ferrous Sulfate (Feosol Liquid Cup) 300 mg DAILY NGT Last administered on 08:23; Admin Dose 300 MG; Start 09/12/16 at 09:00 Folic Acid (Folic Acid) 1 mg DAILY NGT Last administered on 09/12/16 08:23; Admin Dose 1 MG; Start 09/11/16 at 20:10 Losartan Potassium (Cozaar) 50 mg BID NGT ; Start 09/11/16 at 20:10 Multivitamins Therapeutic (Theragran) 1 tab DAILY NGT Last administered on 09/12 08:22; Admin Dose 1 TAB; Start 09/11/16 at 20:11 Thiamine HCl (Vitamin B1) 100 mg DAILY NGT Last administered on 09/12/16 08:22 ; Admin Dose 100 MG; Start 09/11/16 at 20:11 Spironolactone (Aldactone) 50 mg DAILY NGT Last administered on 09/12/16t 08:21 ; Admin Dose 50 MG; Start 09/12/16 at 09:00 Diltiazem HCl (Cardizem) 60 mg QID NGT ; Start 09/11/16 at 21:00 ABIMAEL ZAIDI Sep 13, 2016 08:39
[2016-09-13] MEDS: DILTIAZEM 30 MG TAB NGT SCH ×4 (09:00→20:59)
[2016-09-13] MEDS: LOSARTAN 50 MG TAB NGT SCH ×2 (09:00→20:59)
[2016-09-13] MEDS: THIAMINE 100 MG TAB NGT SCH (09:35)
[2016-09-13] MEDS: FERROUS SULFATE 60 MG/ML 5ML CUP NGT SCH (09:35)
[2016-09-13] MEDS: POTASSIUM CHLORIDE 20 MEQ POWDER FOR ORAL SOLN NGT SCH ×2 (09:35→20:58)
[2016-09-13] MEDS: FOLIC ACID 1 MG TAB NGT SCH (09:35)
[2016-09-13] MEDS: ASPIRIN 81 MG TAB NGT SCH (09:35)
[2016-09-13] MEDS: FAMOTIDINE 20 MG TAB NGT SCH ×2 (09:35→20:59)
[2016-09-13] MEDS: ACETAZOLAMIDE 250 MG TAB NGT SCH ×3 (09:35→20:58)
[2016-09-13] MEDS: SPIRONOLACTONE 50 MG TAB NGT SCH (09:36)
[2016-09-13] MEDS: MULTIVITAMINS THERAPEUTIC TAB NGT SCH (09:36)
[2016-09-13] MEDS: DIGOXIN 0.125 MG TAB NGT SCH (12:40)
--- NOTE | 2016-09-13 12:50 | PN ---
Date/Time of Note Date/Time of Note DATE: 09/13/16 TIME: 12:48 Assessment/Plan VTE Prophylaxis VTE Prophylaxis Intervention: SCD's Lines/Catheters IV Catheter Type (from Nrs): PICC Line Central line still needed: Yes (difficult peripheral access, IV abx, Sepis ) Urinary Cath still in place: Yes Reason Cath still needed: urinary retention, other (indicate) (strict I /O ) Assessment/Plan Assessment/Plan 1. Acute on chronic Hypoxic and hypercapnic respiratory failure. Vent dependent / intubated on 09/07/2016 2. Bilateral Aspiration pneumonia. 3. Septic Shock : improved/ now off pressors 4 S/p ACS r/o 5. Chronic obstructive pulmonary disease: Stable 6. Atrial fibrillation. Rate controlled. Unable to anticoagulate because of underlying thrombocytopenia. 7. Alcoholic liver disease with hyperammonemia 8. Thrombocytopenia. Most probably from acute alcoholic liver disease. 9. Hyponatremia associated with alcoholic liver disease- improved 10. Alcohol abuse. The patient's last drink was on the day prior to hospitalization. The patient will be maintained on a daily thiamine. Status post Librium taper. 11. Acute on chronic CHF exacerbation. Diastolic dysfunction. decompensated - monitor I/O's Continue diuretics while carefully monitoring BP. 12. Hypokalemia 13. Severe obesity with likely underlying sleep apnea and obesity/ hypoventilation syndrome. Plan. * Continue ICU monitoring. Monitor acute changes, Continue to try to wean off of vent. * Continue abx * replace lytes * Fluid, electrolytes and nutrition: tube feeds * Deep venous thrombosis prophylaxis: SCDs * Gastrointestinal prophylaxis. H2 receptor blockers. Prognosis : Guarded CC time >35mins Subjective 24 Hr Interval Summary Free Text/Dictation remains intubated, on ventilator, BP stable Exam/Review of Systems Vital Signs Vitals Vital Signs Date Time Temp Pulse Resp B/P Pulse Ox O2 Delivery O2 Flow Rate FiO2 09/13/16 11:30 85 21 98/73 97 09/13/16 11:05 50 09/13/16 11:00 Mechanical Ventilator 09/13/16 08:00 98.6 Intake and Output 09/12/16 09/12/16 09/13/16 15:00 23:00 07:00 Intake Total 716.205 ml 431.46 ml 450.15 ml Output Total 405 ml 400 ml 370 ml Balance 311.205 ml 31.46 ml 80.15 ml Exam Gen Huma: responds to stimulation, intubated/sedated HEENT: NC/AT, PERRLA, no pharyngeal erythema, no tonsillar exudates, ETT in place NECK: supple, no thyromegaly THORAX: symmetrical, no obvious deformities CV: S1S2, RRR, no M/G/R Lungs: scattered rhonchi, no wheezing, crackles Abd: soft, NT/ND, +BS, no rebound, no guarding, neg HSM, protuberant EXT: 1+ pitting bilateral edema, no ecchymosis, no clubbing, FROM Neuro: difficult to assess while on sedation Psych: cannot assess Skin: C/D/I Results Result Diagram: 09/13/16 0400 09/13/16 0400 Results 24 hrs Laboratory Tests Test 09/13/16 04:00 White Blood Count 10.2 # Red Blood Count 4.32 L Hemoglobin 12.6 L Hematocrit 39.2 L Mean Corpuscular Volume 90.7 Mean Corpuscular Hemoglobin 29.2 Mean Corpuscular Hemoglobin Concent 32.1 Red Cell Distribution Width 15.0 H Platelet Count 105 L Mean Platelet Volume 10.7 H Neutrophils % 75.5 Lymphocytes % 10.3 L Monocytes % 9.0 Eosinophils % 4.4 Basophils % 0.5 Nucleated Red Blood Cells % 0.0 Neutrophils # 7.7 H Lymphocytes # 1.1 Monocytes # 0.9 Eosinophils # 0.5 Basophils # 0.1 Nucleated Red Blood Cells # 0.0 Sodium Level 141 Potassium Level 3.7 Chloride Level 108 Carbon Dioxide Level 25 Anion Gap 12 Blood Urea Nitrogen 17 Creatinine 0.67 Glucose Level 88 Calcium Level 9.3 Total Bilirubin 0.6 Direct Bilirubin 0.00 Indirect Bilirubin 0.6 Aspartate Amino Transf (AST/SGOT) 46 Alanine Aminotransferase (ALT/SGPT) 33 Alkaline Phosphatase 94 Total Protein 6.3 Albumin 3.1 L Globulin 3.20 Albumin/Globulin Ratio 0.96 Medications Medications Current Medications Morphine Sulfate (morphine) 3 mg Q4H PRN IV PAIN; Start 08/31/16 at 01:00 Ondansetron HCl (Zofran Inj) 4 mg Q6H PRN IV NAUSEA AND/OR VOMITING; Start 02/06 at 02:00 Morphine Sulfate 2 mg 2 mg Q4H PRN IV PAIN LEVEL 7-10; Start 08/31/16 at 02:00 Propofol 100 ml @ 4.695 mls/ hr Q12H IV Last administered on 09/13/16 08:40; Admin Dose 7.512 MLS/HR; Start 09/07/16 at 13:30 Piperacillin Sod/ Tazobactam Sod (Zosyn 3.375gm/ 100 ml (Pmx)) 100 ml @ 200 mls /hr Q6 IVPB Last administered on 09/13/16 06:47; Admin Dose 200 MLS/HR; Start 09/07/16 at 16:00 Lactulose 20 gm 20 gm Q8 NGT Last administered on 09/13/16 06:47; Admin Dose 20 GM; Start 09/07/16 at 16:00 Norepinephrine/ Dextrose (Levophed/D5W) 500 ml @ 1.87 mls/hr TITRATE IV Last administered on 09/08/16 01:09; Admin Dose 18.75 MLS/HR; Start 09/07/16 at 17: 00 Acetazolamide (Diamox) 250 mg TID NGT Last administered on 09/13/16 09:35; Admin Dose 250 MG; Start 09/08/16 at 21:00 IV Flush (NS 10 ml) 10 ml PRN PRN IV IV PROTOCOL; Start 09/08/16 at 17:00 Potassium Chloride (Potassium Chloride Pwd/Soln) 20 meq BID NGT Last administered on 09/13/16 09:35; Admin Dose 20 MEQ; Start 09/11/16 at 21:00 Aspirin (Aspirin) 81 mg DAILY NGT Last administered on 09/13/16 09:35; Admin Dose 81 MG; Start 09/12/16 at 09:00 Atorvastatin Calcium (Lipitor) 10 mg QHS NGT Last administered on 09/12/16 20: 42; Admin Dose 10 MG; Start 09/11/16 at 20:06 Digoxin (Digoxin) 0.125 mg DAILY@13 NGT Last administered on 09/12/16 12:26; Admin Dose 0.125 MG; Start 09/11/16 at 20:06 Famotidine (Pepcid) 20 mg BID NGT Last administered on 09/13/16 09:35; Admin Dose 20 MG; Start 09/11/16 at 20:06 Ferrous Sulfate (Feosol Liquid Cup) 300 mg DAILY NGT Last administered on 09:35; Admin Dose 300 MG; Start 09/12/16 at 09:00 Folic Acid (Folic Acid) 1 mg DAILY NGT Last administered on 09/13/16 09:35; Admin Dose 1 MG; Start 09/11/16 at 20:10 Losartan Potassium (Cozaar) 50 mg BID NGT ; Start 09/11/16 at 20:10 Multivitamins Therapeutic (Theragran) 1 tab DAILY NGT Last administered on 09/13 09:36; Admin Dose 1 TAB; Start 09/11/16 at 20:11 Thiamine HCl (Vitamin B1) 100 mg DAILY NGT Last administered on 09/13/16 09:35 ; Admin Dose 100 MG; Start 09/11/16 at 20:11 Spironolactone (Aldactone) 50 mg DAILY NGT Last administered on 09/13/16 09:36 ; Admin Dose 50 MG; Start 09/12/16 at 09:00 Diltiazem HCl (Cardizem) 60 mg QID NGT ; Start 09/11/16 at 21:00 DANIS MONTES MD Sep 13, 2016 12:50
[2016-09-13] MEDS: ATORVASTATIN 10 MG TAB NGT SCH (20:59)
[2016-09-14] VITALS (58 sets, daily range): BP systolic 87–115; BP diastolic 53–83; PULSE 72–102; RESP 15–30
[2016-09-14] MEDS: IPRATROPIUM (HFA) 12.9 GM INHALER INH SCH ×4 (01:43→20:01)
[2016-09-14] MEDS: ALBUTEROL 18 GM INHALER INH SCH ×4 (01:44→20:01)
[2016-09-14 05:08] LABS: ADD SCAN DIFF NO
[2016-09-14 05:12] LABS: AADO2 Arterial 218.6 mmHg (7.0-24.0); Arterial Base Excess -1.7 mmol/L (-3.0-3); Arterial COHb 0.6 % (0.0-3.0); Arterial Fraction of Oxyhgb 95.6 % (93.0-99.0); Arterial HCO3 23.6 mmol/L (22.0-26.0); Arterial MetHb 0.3 % (0.0-1.5); MODE VENT - AC
[2016-09-14 05:15] LABS: BASOPHILS % 0.5 % (0.0-2.0); EOSINOPHILS # 0.5 10^3/ul (0.0-0.5); EOSINOPHILS % 5.7 % (0.0-7.0); HEMATOCRIT 37.8 % (42.0-52.0); HEMOGLOBIN 12.7 g/dl (14.0-18.0); LYMPHOCYTES % 11.7 % (15.0-51.0); MEAN CORPUSCULAR HEMOGLOBIN 30.2 pg (29.0-33.0); MEAN CORPUSCULAR HGB CONC 33.6 g/dl (32.0-37.0); MEAN PLATELET VOLUME 10.6 fl (7.4-10.4); MONOCYTE # 0.8 10^3/ul (0.3-0.9); MONOCYTES % 9.1 % (0.0-11.0); NEUTROPHILS % 72.6 % (39.0-77.0); PLATELET COUNT 107 10^3/UL (140-415); RED CELL DISTRIBUTION WIDTH 14.6 % (11.5-14.5); WHITE BLOOD COUNT 8.2 10^3/ul (4.8-10.8)
[2016-09-14 05:32] LABS: INR 1.18; PROTIME 15.1 Sec (12.2-14.2); PT RATIO 1.2
[2016-09-14 05:33] LABS: PARTIAL THROMBOPLASTIN TIME 30.8 Sec (25.0-35.0)
[2016-09-14 05:48] LABS: MAGNESIUM 1.7 mg/dl (1.7-2.5); PHOSPHORUS 4.1 mg/dl (2.5-4.9)
[2016-09-14] MEDS: PIPER-TAZO 3.375 GM IV (PMX) 100 ML IVPB SCH ×4 (05:49→23:41)
[2016-09-14] MEDS: LACTULOSE 30ML CUP NGT SCH ×3 (05:49→22:42)
[2016-09-14 05:50] LABS: ALBUMIN 3.2 g/dl (3.3-4.9); BILIRUBIN,INDIRECT 0.7 mg/dl (0-1.1); BILIRUBIN,TOTAL 0.7 mg/dl (0.2-1.3); CALCIUM 9.1 mg/dl (8.4-10.2); CREATININE 0.69 mg/dl (0.61-1.24); POTASSIUM 3.5 mmol/L (3.5-5.1); TOTAL PROTEIN 6.4 g/dl (6.1-8.1)
--- NOTE | 2016-09-14 06:06 | CONS ---
Date/Time of Note Date/Time of Note DATE: 09/14/16 TIME: 06:03 Assessment/Plan Assessment/Plan Additional Assessment/Plan Ventilator setting; AC of 20, tidal volume 550, PEEP of 5, 45% FiO2. Patient currently on propofol at 15 mics per kilogram per minute. Assessment recommendations; 1. Patient admitted for hypoxemic and hypercapnic respiratory failure due to underlying obesity/hypoventilation syndrome then developed respiratory failure due to left lung atelectasis from left mainstem mucous plugging, requiring intubation. Postintubation x-ray showed marked improvement in aeration of the left lung however persistent left lower lobe pneumonia is present. Possibly developing left pleural effusion. Continue current treatment. Obtain follow-up chest x-ray. The patient may need CT imaging of the chest. Wean down FiO2 to keep O2 saturation around 94%. Consultation Date/Type/Reason Admit Date/Time Aug 30, 2016 at 23:34 Type of Consultation: Pulmonary/critical care 24 HR Interval Summary Free Text/Dictation Patient condition remains critical. Still requiring high FiO2 for O2 saturation maintenance however FiO2 has been down to 45% now. Patient has remained hemodynamically stable. General exam; middle-aged male, morbidly obese, orally intubated, sedated. Currently in no distress. Exam/Review of Systems Vital Signs Vitals Vital Signs Date Time Temp Pulse Resp B/P Pulse Ox O2 Delivery O2 Flow Rate FiO2 09/14/16 05:18 81 20 96 45 09/14/16 04:00 103/78 Mechanical Ventilator 09/14/16 03:00 97.8 Intake and Output 09/13/16 09/13/16 09/14/16 15:00 23:00 07:00 Intake Total 466.19 ml 482.82 ml 274.90 ml Output Total 380 ml 485 ml 220 ml Balance 86.19 ml -2.18 ml 54.90 ml Exam HEENT exam; supple neck, no JVD. No lymphadenopathy. Midline trachea. No thyromegaly. Orally intubated. Patient has fair dentition. Pupils are equal and reactive to light. Chest examined; diminished breath sound left lower lobe. Rest of the lung hernandez are fairly clear. S1-S2 audible, no murmurs. Regular rhythm. Abdomen examination; soft, nondistended. Protuberant. Bowel sounds audible. Extremity exam; no peripheral edema. Pulses 1+ bilaterally. FRONT SERVICES AGENT examination; patient is sedated. Results Result Diagram: 09/14/16 0440 09/13/16 0400 Results 24 hrs Laboratory Tests Test 09/14/16 04:40 09/14/16 05:00 White Blood Count 8.2 Red Blood Count 4.20 L Hemoglobin 12.7 L Hematocrit 37.8 L Mean Corpuscular Volume 90.0 Mean Corpuscular Hemoglobin 30.2 Mean Corpuscular Hemoglobin Concent 33.6 Red Cell Distribution Width 14.6 H Platelet Count 107 L Mean Platelet Volume 10.6 H Neutrophils % 72.6 Lymphocytes % 11.7 L Monocytes % 9.1 Eosinophils % 5.7 Basophils % 0.5 Nucleated Red Blood Cells % 0.0 Neutrophils # 6.0 Lymphocytes # 1.0 Monocytes # 0.8 Eosinophils # 0.5 Basophils # 0.0 Nucleated Red Blood Cells # 0.0 Prothrombin Time 15.1 H Prothrombin Time Ratio 1.2 INR International Normalized Ratio 1.18 Activated Partial Thromboplast Time 30.8 Phosphorus Level 4.1 Magnesium Level 1.7 Blood Gas Specimen Source Blood arterial Arterial Blood Date Drawn 09/14/2016 5:00:58 AM Arterial Blood pH (Temp corrected) 7.365 Arterial Blood pCO2 (Temp correct) 42.3 Arterial Blood pO2 (Temp corrected) 90.3 Arterial Blood HCO3 23.6 Arterial Blood Base Excess -1.7 Arterial Blood Oxygen Saturation 96.5 Dilshad Test N/A Arterial Blood Gas Puncture Site Right Brachial Arterial Blood Carboxyhemoglobin 0.6 Arterial Blood Methemoglobin 0.3 Blood Gas A-a O2 Differential 218.6 H Oxyhemoglobin Percent 95.6 Total Hemoglobin 14.0 Blood Gas Temperature 37.0 Blood Gas Respiration Rate 20.0 Blood Gas Actual Respiration Rate 20 Blood Gas Modality VENT - AC FiO2 50.0 Blood Gas Tidal Volume 550.0 Blood Gas Low PEEP Setting 5.0 Blood Gas Inspiratory Pressure 27.0 Blood Gas Notified Whom UP Blood Gas Notified Time 09/14/2016 5:12:01 AM Medications Medications Current Medications Morphine Sulfate (morphine) 3 mg Q4H PRN IV PAIN; Start 08/31/16 at 01:00 Ondansetron HCl (Zofran Inj) 4 mg Q6H PRN IV NAUSEA AND/OR VOMITING; Start 02/06 at 02:00 Morphine Sulfate 2 mg 2 mg Q4H PRN IV PAIN LEVEL 7-10; Start 08/31/16 at 02:00 Propofol 100 ml @ 4.695 mls/ hr Q12H IV Last administered on 09/13/16 23:07; Admin Dose 14.066 MLS/HR; Start 09/07/16 at 13:30 Piperacillin Sod/ Tazobactam Sod (Zosyn 3.375gm/ 100 ml (Pmx)) 100 ml @ 200 mls /hr Q6 IVPB Last administered on 09/14/16 05:49; Admin Dose 200 MLS/HR; Start 09/07/16 at 16:00 Lactulose 20 gm 20 gm Q8 NGT Last administered on 09/14/16 05:49; Admin Dose 20 GM; Start 09/07/16 at 16:00 Norepinephrine/ Dextrose (Levophed/D5W) 500 ml @ 1.87 mls/hr TITRATE IV Last administered on 09/08/16 01:09; Admin Dose 18.75 MLS/HR; Start 09/07/16 at 17: 00 Acetazolamide (Diamox) 250 mg TID NGT Last administered on 09/13/16 20:58; Admin Dose 250 MG; Start 09/08/16 at 21:00 IV Flush (NS 10 ml) 10 ml PRN PRN IV IV PROTOCOL; Start 09/08/16 at 17:00 Potassium Chloride (Potassium Chloride Pwd/Soln) 20 meq BID NGT Last administered on 09/13/16 20:58; Admin Dose 20 MEQ; Start 09/11/16 at 21:00 Aspirin (Aspirin) 81 mg DAILY NGT Last administered on 09/13/16 09:35; Admin Dose 81 MG; Start 09/12/16 at 09:00 Atorvastatin Calcium (Lipitor) 10 mg QHS NGT Last administered on 09/13/16 20: 59; Admin Dose 10 MG; Start 09/11/16 at 20:06 Digoxin (Digoxin) 0.125 mg DAILY@13 NGT Last administered on 09/13/16 12:40; Admin Dose 0.125 MG; Start 09/11/16 at 20:06 Famotidine (Pepcid) 20 mg BID NGT Last administered on 09/13/16 20:59; Admin Dose 20 MG; Start 09/11/16 at 20:06 Ferrous Sulfate (Feosol Liquid Cup) 300 mg DAILY NGT Last administered on 09:35; Admin Dose 300 MG; Start 09/12/16 at 09:00 Folic Acid (Folic Acid) 1 mg DAILY NGT Last administered on 09/13/16 09:35; Admin Dose 1 MG; Start 09/11/16 at 20:10 Losartan Potassium (Cozaar) 50 mg BID NGT ; Start 09/11/16 at 20:10 Multivitamins Therapeutic (Theragran) 1 tab DAILY NGT Last administered on 09/13 09:36; Admin Dose 1 TAB; Start 09/11/16 at 20:11 Thiamine HCl (Vitamin B1) 100 mg DAILY NGT Last administered on 09/13/16 09:35 ; Admin Dose 100 MG; Start 09/11/16 at 20:11 Spironolactone (Aldactone) 50 mg DAILY NGT Last administered on 09/13/16 09:36 ; Admin Dose 50 MG; Start 09/12/16 at 09:00 Diltiazem HCl (Cardizem) 60 mg QID NGT ; Start 09/11/16 at 21:00 ABIMAEL ZAIDI Sep 14, 2016 06:06
[2016-09-14] MEDS: PROPOFOL 100 ML IV SCH ×3 (06:44→22:43)
--- NOTE | 2016-09-14 08:35 | PN ---
Date/Time of Note Date/Time of Note DATE: 09/14/16 TIME: 08:32 Assessment/Plan VTE Prophylaxis VTE Prophylaxis Intervention: heparin Lines/Catheters IV C[facility]ter Type (from [email or web address] PICC Line Central line still needed: Yes Urinary Cath still in place: Yes Reason Cath still needed: other (indicate) Assessment/Plan Chief Complaint/Hosp Course 1. Chest pain. Acute coronary syndrome ruled out. Troponins negative. The patient's 2D echocardiogram showing ejection fraction of 55%. The patient will be continued on aspirin. Cardiology following the patient. 2. Essential hypertension. Currently hypotensive. Status post pressors. Resume antihypertensives as the blood pressure allows. 3. Chronic obstructive pulmonary disease. The patient on inhaled bronchodilators. Pulmonology following. 4. Acute respiratory failure. Acute on chronic. Hypoxic and hypercapnic. Got intubated on 09/07/2016 because of worsening respiratory distress. Ventilator management as per Pulmonary. 5. Atrial fibrillation. Rate controlled. Unable to anticoagulate because of underlying thrombocytopenia. 6. Alcoholic liver disease. Continue diuretics. The patient will also be continued on lactulose because of underlying hyperammonemia. 7. Thrombocytopenia. Most probably from acute alcoholic liver disease. Monitor for any bleeding. 8. Hyponatremia. The patient's sodium will be increased gradually. Nephrology following. Resolved S/P 1 dose of vasopressin antagonist on 09/07/2016. 9. Alcohol abuse. The patient's last drink was on the day prior to hospitalization. The patient will be maintained on a daily thiamine. Status post Librium taper. 10. Possible aspiration with aspiration pneumonia. The patient on empiric antibiotics including coverage for anaerobes. 11. Acute on chronic CHF exacerbation. Diastolic dysfunction. Continue diuretics if blood pressure allows. 12. Fluid, electrolytes and nutrition. NG tube feedings. 13. Deep venous thrombosis prophylaxis. Subcutaneous heparin. Will hold this if there is worsening thrombocytopenia. 14. Gastrointestinal prophylaxis. H2 receptor blockers. 15. Plan. Continue ICU monitoring. Careful diuresis.Continue lactulose. Ventilator weaning as per Pulmonary. Case discussed with Dr. Burr. Critical care time: 35 minutes. Problems: Subjective 24 Hr Interval Summary Free Text/Dictation Patient remains intubated. FiO2 has been weaned down. Off process. Exam/Review of Systems Vital Signs Vitals Vital Signs Date Time Temp Pulse Resp B/P Pulse Ox O2 Delivery O2 Flow Rate FiO2 09/14/16 08:00 45 6/25/17 08:00 99.3 83 20 95/60 96 Mechanical Ventilator Intake and Output 09/13/16 09/13/16 09/14/16 15:00 23:00 07:00 Intake Total 466.19 ml 482.82 ml 494.84 ml Output Total 380 ml 485 ml 390 ml Balance 86.19 ml -2.18 ml 104.84 ml Exam GENERAL: This is a morbidly obese male patient lying in orally intubated. HEENT: Head normocephalic and atraumatic. Eyes: Anicteric sclerae. Conjunctivae clear. ENT: Nasal septum is midline. NGT in place. Oral mucosa is dry.Orally intubated. NECK: Short with increased neck circumference. RESPIRATORY: Bilaterally diminished breath sounds. Orally intubated. On AC mode ventilation. CARDIAC: Irregularly irregular rhythm. S1 and S2 heard. ABDOMEN: Obese. Bowel sounds hypoactive. GENITOURINARY: Deferred. EXTREMITIES: No cyanosis, no clubbing. Bilateral lower extremity 1+ pitting edema. Peripheral pulses are palpable. NEUROLOGIC: The patient is sedated. Results Result Diagram: 09/14/16 0440 09/14/16 0440 Results 24 hrs Laboratory Tests Test 09/14/16 04:40 09/14/16 05:00 White Blood Count 8.2 Red Blood Count 4.20 L Hemoglobin 12.7 L Hematocrit 37.8 L Mean Corpuscular Volume 90.0 Mean Corpuscular Hemoglobin 30.2 Mean Corpuscular Hemoglobin Concent 33.6 Red Cell Distribution Width 14.6 H Platelet Count 107 L Mean Platelet Volume 10.6 H Neutrophils % 72.6 Lymphocytes % 11.7 L Monocytes % 9.1 Eosinophils % 5.7 Basophils % 0.5 Nucleated Red Blood Cells % 0.0 Neutrophils # 6.0 Lymphocytes # 1.0 Monocytes # 0.8 Eosinophils # 0.5 Basophils # 0.0 Nucleated Red Blood Cells # 0.0 Prothrombin Time 15.1 H Prothrombin Time Ratio 1.2 INR International Normalized Ratio 1.18 Activated Partial Thromboplast Time 30.8 Sodium Level 139 Potassium Level 3.5 Chloride Level 109 Carbon Dioxide Level 26 Anion Gap 8 Blood Urea Nitrogen 16 Creatinine 0.69 Glucose Level 87 Calcium Level 9.1 Phosphorus Level 4.1 Magnesium Level 1.7 Total Bilirubin 0.7 Direct Bilirubin 0.00 Indirect Bilirubin 0.7 Aspartate Amino Transf (AST/SGOT) 45 Alanine Aminotransferase (ALT/SGPT) 47 Alkaline Phosphatase 96 Total Protein 6.4 Albumin 3.2 L Globulin 3.20 Albumin/Globulin Ratio 1.00 Blood Gas Specimen Source Blood arterial Arterial Blood Date Drawn 09/14/2016 5:00:58 AM Arterial Blood pH (Temp corrected) 7.365 Arterial Blood pCO2 (Temp correct) 42.3 Arterial Blood pO2 (Temp corrected) 90.3 Arterial Blood HCO3 23.6 Arterial Blood Base Excess -1.7 Arterial Blood Oxygen Saturation 96.5 Dilshad Test N/A Arterial Blood Gas Puncture Site Right Brachial Arterial Blood Carboxyhemoglobin 0.6 Arterial Blood Methemoglobin 0.3 Blood Gas A-a O2 Differential 218.6 H Oxyhemoglobin Percent 95.6 Total Hemoglobin 14.0 Blood Gas Temperature 37.0 Blood Gas Respiration Rate 20.0 Blood Gas Actual Respiration Rate 20 Blood Gas Modality VENT - AC FiO2 50.0 Blood Gas Tidal Volume 550.0 Blood Gas Low PEEP Setting 5.0 Blood Gas Inspiratory Pressure 27.0 Blood Gas Notified Whom UP Blood Gas Notified Time 09/14/2016 5:12:01 AM Medications Medications Current Medications Morphine Sulfate (morphine) 3 mg Q4H PRN IV PAIN; Start 08/31/16 at 01:00 Ondansetron HCl (Zofran Inj) 4 mg Q6H PRN IV NAUSEA AND/OR VOMITING; Start 02/06 at 02:00 Morphine Sulfate 2 mg 2 mg Q4H PRN IV PAIN LEVEL 7-10; Start 08/31/16 at 02:00 Propofol 100 ml @ 4.695 mls/ hr Q12H IV Last administered on 09/14/16 06:44; Admin Dose 14.066 MLS/HR; Start 09/07/16 at 13:30 Piperacillin Sod/ Tazobactam Sod (Zosyn 3.375gm/ 100 ml (Pmx)) 100 ml @ 200 mls /hr Q6 IVPB Last administered on 09/14/16 05:49; Admin Dose 200 MLS/HR; Start 09/07/16 at 16:00 Lactulose 20 gm 20 gm Q8 NGT Last administered on 09/14/16 05:49; Admin Dose 20 GM; Start 09/07/16 at 16:00 Norepinephrine/ Dextrose (Levophed/D5W) 500 ml @ 1.87 mls/hr TITRATE IV Last administered on 09/08/16 01:09; Admin Dose 18.75 MLS/HR; Start 09/07/16 at 17: 00 Acetazolamide (Diamox) 250 mg TID NGT Last administered on 09/13/16 20:58; Admin Dose 250 MG; Start 09/08/16 at 21:00 IV Flush (NS 10 ml) 10 ml PRN PRN IV IV PROTOCOL; Start 09/08/16 at 17:00 Potassium Chloride (Potassium Chloride Pwd/Soln) 20 meq BID NGT Last administered on 09/13/16 20:58; Admin Dose 20 MEQ; Start 09/11/16 at 21:00 Aspirin (Aspirin) 81 mg DAILY NGT Last administered on 09/13/16 09:35; Admin Dose 81 MG; Start 09/12/16 at 09:00 Atorvastatin Calcium (Lipitor) 10 mg QHS NGT Last administered on 09/13/16 20: 59; Admin Dose 10 MG; Start 09/11/16 at 20:06 Digoxin (Digoxin) 0.125 mg DAILY@13 NGT Last administered on 09/13/16 12:40; Admin Dose 0.125 MG; Start 09/11/16 at 20:06 Famotidine (Pepcid) 20 mg BID NGT Last administered on 09/13/16 20:59; Admin Dose 20 MG; Start 09/11/16 at 20:06 Ferrous Sulfate (Feosol Liquid Cup) 300 mg DAILY NGT Last administered on 09:35; Admin Dose 300 MG; Start 09/12/16 at 09:00 Folic Acid (Folic Acid) 1 mg DAILY NGT Last administered on 09/13/16 09:35; Admin Dose 1 MG; Start 09/11/16 at 20:10 Losartan Potassium (Cozaar) 50 mg BID NGT ; Start 09/11/16 at 20:10 Multivitamins Therapeutic (Theragran) 1 tab DAILY NGT Last administered on 09/13 09:36; Admin Dose 1 TAB; Start 09/11/16 at 20:11 Thiamine HCl (Vitamin B1) 100 mg DAILY NGT Last administered on 09/13/16 09:35 ; Admin Dose 100 MG; Start 09/11/16 at 20:11 Spironolactone (Aldactone) 50 mg DAILY NGT Last administered on 09/13/16t 09:36 ; Admin Dose 50 MG; Start 09/12/16 at 09:00 Diltiazem HCl (Cardizem) 60 mg QID NGT ; Start 09/11/16 at 21:00 TRUDY HILTON NP Sep 14, 2016 08:35
[2016-09-14] MEDS: LOSARTAN 50 MG TAB NGT SCH ×2 (09:00→21:00)
[2016-09-14] MEDS ORDERED: MAGNESIUM SULFATE 2 GM/50 ML 50 ML IVPB ONE (09:00)
[2016-09-14] MEDS: DILTIAZEM 30 MG TAB NGT SCH ×4 (09:00→21:00)
[2016-09-14] MEDS: morphine 2 MG INJ IV PRN (09:45)
[2016-09-14] MEDS: BISACODYL 10 MG SUPP PR PRN (09:45)
[2016-09-14] MEDS: THIAMINE 100 MG TAB NGT SCH (09:45)
[2016-09-14] MEDS: POTASSIUM CHLORIDE 20 MEQ POWDER FOR ORAL SOLN NGT SCH ×2 (09:45→21:19)
[2016-09-14] MEDS: FERROUS SULFATE 60 MG/ML 5ML CUP NGT SCH (09:45)
[2016-09-14] MEDS: ACETAZOLAMIDE 250 MG TAB NGT SCH ×3 (09:45→21:19)
[2016-09-14] MEDS: SPIRONOLACTONE 50 MG TAB NGT SCH (09:46)
[2016-09-14] MEDS: MULTIVITAMINS THERAPEUTIC TAB NGT SCH (09:46)
[2016-09-14] MEDS: FOLIC ACID 1 MG TAB NGT SCH (09:46)
[2016-09-14] MEDS: ASPIRIN 81 MG TAB NGT SCH (09:46)
[2016-09-14] MEDS: FAMOTIDINE 20 MG TAB NGT SCH ×2 (09:46→21:19)
--- NOTE | 2016-09-14 10:19 | RADRPT ---
PROCEDURE: Chest 1 views. CLINICAL INDICATION: Shortness of breath. TECHNIQUE: AP views of the chest was obtained. COMPARISON: September 12, 2016 FINDINGS: The heart is large. Endotracheal and nasogastric tubes appear grossly stable. Right-sided PICC line is unchanged. The lungs are hypoinflated. Central pulmonary vascular congestion and mild intersti tial prominence in both lungs is stable. Retrocardiac opacity is unchanged. Right basilar infiltra lori and small right pleural effusion are stable. Osseous structures are intact. IMPRESSION: Cardiomegaly . Stable central pulmonary vascular congestion and interstitial prominence in both lungs. Stable retrocardiac opacity that may reflect left lower lobe atelectasis or infiltrate combined with small pleural effusion. Stable right basilar infiltrates and small right pleural effusion. RPTAT: AA .Philipp Becerra MD, Date Time Electronically viewed and signed by .Philipp Becerra MD, on 09/14/2016 10:19 .P/
[2016-09-14] MEDS: DIGOXIN 0.125 MG TAB NGT SCH (13:11)
[2016-09-14] MEDS: ATORVASTATIN 10 MG TAB NGT SCH (21:19)
[2016-09-15] VITALS (38 sets, daily range): BP systolic 75–124; BP diastolic 52–85; PULSE 67–112; RESP 4–33
[2016-09-15] MEDS: BISACODYL 10 MG SUPP PR PRN (01:40)
[2016-09-15] MEDS: IPRATROPIUM (HFA) 12.9 GM INHALER INH SCH ×4 (01:48→19:13)
[2016-09-15] MEDS: ALBUTEROL 18 GM INHALER INH SCH ×4 (01:49→19:13)
[2016-09-15] MEDS: PROPOFOL 100 ML IV SCH ×3 (03:58→19:55)
[2016-09-15 04:49] LABS: ADD SCAN DIFF NO
[2016-09-15 04:54] LABS: BASOPHILS % 0.5 % (0.0-2.0); EOSINOPHILS # 0.4 10^3/ul (0.0-0.5); EOSINOPHILS % 5.4 % (0.0-7.0); HEMATOCRIT 38.6 % (42.0-52.0); HEMOGLOBIN 12.6 g/dl (14.0-18.0); LYMPHOCYTES % 13.8 % (15.0-51.0); MEAN CORPUSCULAR HEMOGLOBIN 29.5 pg (29.0-33.0); MEAN CORPUSCULAR HGB CONC 32.6 g/dl (32.0-37.0); MEAN CORPUSCULAR VOLUME 90.4 fl (82.0-101.0); MEAN PLATELET VOLUME 10.8 fl (7.4-10.4); MONOCYTE # 0.6 10^3/ul (0.3-0.9); MONOCYTES % 8.1 % (0.0-11.0); NEUTROPHIL # 5.4 10^3/ul (1.6-7.5); NEUTROPHILS % 71.9 % (39.0-77.0); PLATELET COUNT 114 10^3/UL (140-415); RED BLOOD COUNT 4.27 10^6/ul (4.70-6.10); RED CELL DISTRIBUTION WIDTH 14.9 % (11.5-14.5); WHITE BLOOD COUNT 7.5 10^3/ul (4.8-10.8)
[2016-09-15 05:21] LABS: ALBUMIN/GLOBULIN RATIO 0.85; BILIRUBIN,INDIRECT 0.5 mg/dl (0-1.1); BILIRUBIN,TOTAL 0.5 mg/dl (0.2-1.3); CALCIUM 9.3 mg/dl (8.4-10.2); CREATININE 0.64 mg/dl (0.61-1.24); POTASSIUM 3.6 mmol/L (3.5-5.1); TOTAL PROTEIN 6.5 g/dl (6.1-8.1)
[2016-09-15 05:24] LABS: MAGNESIUM 1.8 mg/dl (1.7-2.5); PHOSPHORUS 4.1 mg/dl (2.5-4.9)
[2016-09-15] MEDS: PIPER-TAZO 3.375 GM IV (PMX) 100 ML IVPB SCH ×4 (05:31→23:33)
[2016-09-15] MEDS: LACTULOSE 30ML CUP NGT SCH ×3 (05:31→21:10)
--- NOTE | 2016-09-15 07:51 | RADRPT ---
PROCEDURE: XR Chest. CLINICAL INDICATION: Shortness of breath. TECHNIQUE: Single frontal view. COMPARISON: 09/14/2016. FINDINGS: The endotracheal tube and nasogastric tube are in satisfactory position. Pulmonary edema and bibasi lar atelectasis is unchanged. The heart is enlarged. There is calcification in the aorta consistent with atherosclerosis. A righ t arm PICC line is in satisfactory position with the tip in the lower superior vena cava. There is no pleural effusion. There is no pneumothorax. IMPRESSION: 1. No change from 09/14/2016. RPTAT: QQ .Silverio Conway MD, MD Date Time Electronically viewed and signed by .Silverio Conway MD, MD on 09/15/2016 07:50 .R/
[2016-09-15] MEDS: FERROUS SULFATE 60 MG/ML 5ML CUP NGT SCH (08:16)
[2016-09-15] MEDS: SPIRONOLACTONE 50 MG TAB NGT SCH (08:16)
[2016-09-15] MEDS: FOLIC ACID 1 MG TAB NGT SCH (08:16)
[2016-09-15] MEDS: THIAMINE 100 MG TAB NGT SCH (08:16)
[2016-09-15] MEDS: FAMOTIDINE 20 MG TAB NGT SCH ×2 (08:16→21:10)
[2016-09-15] MEDS: POTASSIUM CHLORIDE 20 MEQ POWDER FOR ORAL SOLN NGT SCH ×2 (08:16→21:10)
[2016-09-15] MEDS: ASPIRIN 81 MG TAB NGT SCH (08:16)
[2016-09-15] MEDS: MULTIVITAMINS THERAPEUTIC TAB NGT SCH (08:16)
[2016-09-15] MEDS: LOSARTAN 50 MG TAB NGT SCH (08:17)
[2016-09-15] MEDS: DILTIAZEM 30 MG TAB NGT SCH ×4 (08:18→21:00)
[2016-09-15] MEDS: ACETAZOLAMIDE 250 MG TAB NGT SCH ×3 (08:23→21:10)
--- NOTE | 2016-09-15 08:46 | PN ---
Date/Time of Note Date/Time of Note DATE: 09/15/16 TIME: 08:42 Assessment/Plan VTE Prophylaxis VTE Prophylaxis Intervention: heparin Lines/Catheters [facility] P[facility] Line Central line still needed: Yes Urinary Cath still in place: Yes Reason Cath still needed: other (indicate) Assessment/Plan Chief Complaint/Hosp Course 1. Chest pain. Acute coronary syndrome ruled out. Troponins negative. The patient's 2D echocardiogram showing ejection fraction of 55%. The patient will be continued on aspirin. Cardiology following the patient. 2. Essential hypertension. Currently hypotensive. Status post pressors. Resume antihypertensives as the blood pressure allows. 3. Chronic obstructive pulmonary disease. The patient on inhaled bronchodilators. Pulmonology following. 4. Acute respiratory failure. Acute on chronic. Hypoxic and hypercapnic. Got intubated on 09/07/2016 because of worsening respiratory distress. Ventilator management as per Pulmonary. 5. Atrial fibrillation. Rate controlled. Unable to anticoagulate because of underlying thrombocytopenia. 6. Alcoholic liver disease. Continue diuretics. The patient will also be continued on lactulose because of underlying hyperammonemia. 7. Thrombocytopenia. Most probably from acute alcoholic liver disease. Monitor for any bleeding. 8. Hyponatremia. The patient's sodium will be increased gradually. Nephrology following. Resolved S/P 1 dose of vasopressin antagonist on 09/07/2016. 9. Alcohol abuse. The patient's last drink was on the day prior to hospitalization. The patient will be maintained on a daily thiamine. Status post Librium taper. 10. Possible aspiration with aspiration pneumonia. The patient on empiric antibiotics including coverage for anaerobes. 11. Acute on chronic CHF exacerbation. Diastolic dysfunction. Continue diuretics if blood pressure allows. 12. Fluid, electrolytes and nutrition. NG tube feedings. 13. Deep venous thrombosis prophylaxis. Subcutaneous heparin. Will hold this if there is worsening thrombocytopenia. 14. Gastrointestinal prophylaxis. H2 receptor blockers. 15. Plan. Continue ICU monitoring. Careful diuresis.Continue lactulose. Ventilator weaning as per Pulmonary. Case discussed with Dr. Hoffmann. Critical care time: 35 minutes. Problems: Subjective 24 Hr Interval Summary Free Text/Dictation The patient remains intubated. Exam/Review of Systems Vital Signs Vitals Vital Signs Date Time Temp Pulse Resp B/P Pulse Ox O2 Delivery O2 Flow Rate FiO2 09/15/16 06:30 67 18 124/85 100 Mechanical Ventilator 09/15/16 05:37 45 09/15/16 04:00 99.0 Intake and Output 09/14/16 09/14/16 09/15/16 15:00 23:00 07:00 Intake Total 535.02 ml 390.89 ml 566.28 ml Output Total 475 ml 390 ml 350 ml Balance 60.02 ml 0.89 ml 216.28 ml Exam GENERAL: This is a morbidly obese male patient lying in orally intubated. HEENT: Head normocephalic and atraumatic. Eyes: Anicteric sclerae. Conjunctivae clear. ENT: Nasal septum is midline. NGT in place. Oral mucosa is dry.Orally intubated. NECK: Short with increased neck circumference. RESPIRATORY: Bilaterally diminished breath sounds. Orally intubated. On AC mode ventilation. CARDIAC: Irregularly irregular rhythm. S1 and S2 heard. ABDOMEN: Obese. Bowel sounds hypoactive. GENITOURINARY: Deferred. EXTREMITIES: No cyanosis, no clubbing. Bilateral lower extremity 1+ pitting edema. Peripheral pulses are palpable. NEUROLOGIC: The patient is sedated. Results Result Diagram: 09/15/16 0400 09/15/16 0400 Results 24 hrs Laboratory Tests Test 09/15/16 04:00 09/15/16 05:30 White Blood Count 7.5 Red Blood Count 4.27 L Hemoglobin 12.6 L Hematocrit 38.6 L Mean Corpuscular Volume 90.4 Mean Corpuscular Hemoglobin 29.5 Mean Corpuscular Hemoglobin Concent 32.6 Red Cell Distribution Width 14.9 H Platelet Count 114 L Mean Platelet Volume 10.8 H Neutrophils % 71.9 Lymphocytes % 13.8 L Monocytes % 8.1 Eosinophils % 5.4 Basophils % 0.5 Nucleated Red Blood Cells % 0.0 Neutrophils # 5.4 Lymphocytes # 1.0 Monocytes # 0.6 Eosinophils # 0.4 Basophils # 0.0 Nucleated Red Blood Cells # 0.0 Sodium Level 144 Potassium Level 3.6 Chloride Level 107 Carbon Dioxide Level 25 Anion Gap 16 # Blood Urea Nitrogen 17 Creatinine 0.64 Glucose Level 93 Calcium Level 9.3 Phosphorus Level 4.1 Magnesium Level 1.8 Total Bilirubin 0.5 Direct Bilirubin 0.00 Indirect Bilirubin 0.5 Aspartate Amino Transf (AST/SGOT) 47 H Alanine Aminotransferase (ALT/SGPT) 47 Alkaline Phosphatase 102 Total Protein 6.5 Albumin 3.0 L Globulin 3.50 H Albumin/Globulin Ratio 0.85 Ammonia 74 H Medications Medications Current Medications Morphine Sulfate (morphine) 3 mg Q4H PRN IV PAIN; Start 08/31/16 at 01:00 Ondansetron HCl (Zofran Inj) 4 mg Q6H PRN IV NAUSEA AND/OR VOMITING; Start 02/06 at 02:00 Morphine Sulfate 2 mg 2 mg Q4H PRN IV PAIN LEVEL 7-10 Last administered on 09/14 09:45; Admin Dose 2 MG; Start 08/31/16 at 02:00 Propofol 100 ml @ 4.695 mls/ hr Q12H IV Last administered on 09/15/16 07:17; Admin Dose 18.78 MLS/HR; Start 09/07/16 at 13:30 Piperacillin Sod/ Tazobactam Sod (Zosyn 3.375gm/ 100 ml (Pmx)) 100 ml @ 200 mls /hr Q6 IVPB Last administered on 09/15/16 05:31; Admin Dose 200 MLS/HR; Start 09/07/16 at 16:00 Lactulose 20 gm 20 gm Q8 NGT Last administered on 09/15/16 05:31; Admin Dose 20 GM; Start 09/07/16 at 16:00 Norepinephrine/ Dextrose (Levophed/D5W) 500 ml @ 1.87 mls/hr TITRATE IV Last administered on 09/15/16 06:19; Admin Dose 1.87 MLS/HR; Start 09/07/16 at 17:00 Acetazolamide (Diamox) 250 mg TID NGT Last administered on 09/15/16 08:23; Admin Dose 250 MG; Start 09/08/16 at 21:00 IV Flush (NS 10 ml) 10 ml PRN PRN IV IV PROTOCOL; Start 09/08/16 at 17:00 Potassium Chloride (Potassium Chloride Pwd/Soln) 20 meq BID NGT Last administered on 09/15/16 08:16; Admin Dose 20 MEQ; Start 09/11/16 at 21:00 Aspirin (Aspirin) 81 mg DAILY NGT Last administered on 09/15/16 08:16; Admin Dose 81 MG; Start 09/12/16 at 09:00 Atorvastatin Calcium (Lipitor) 10 mg QHS NGT Last administered on 09/14/16 21: 19; Admin Dose 10 MG; Start 09/11/16 at 20:06 Digoxin (Digoxin) 0.125 mg DAILY@13 NGT Last administered on 09/14/16 13:11; Admin Dose 0.125 MG; Start 09/11/16 at 20:06 Famotidine (Pepcid) 20 mg BID NGT Last administered on 09/15/16 08:16; Admin Dose 20 MG; Start 09/11/16 at 20:06 Ferrous Sulfate (Feosol Liquid Cup) 300 mg DAILY NGT Last administered on 08:16; Admin Dose 300 MG; Start 09/12/16 at 09:00 Folic Acid (Folic Acid) 1 mg DAILY NGT Last administered on 09/15/16 08:16; Admin Dose 1 MG; Start 09/11/16 at 20:10 Losartan Potassium (Cozaar) 50 mg BID NGT ; Start 09/11/16 at 20:10 Multivitamins Therapeutic (Theragran) 1 tab DAILY NGT Last administered on 09/15 08:16; Admin Dose 1 TAB; Start 09/11/16 at 20:11 Thiamine HCl (Vitamin B1) 100 mg DAILY NGT Last administered on 09/15/16 08:16 ; Admin Dose 100 MG; Start 09/11/16 at 20:11 Spironolactone (Aldactone) 50 mg DAILY NGT Last administered on 09/15/16 08:16 ; Admin Dose 50 MG; Start 09/12/16 at 09:00 Diltiazem HCl (Cardizem) 60 mg QID NGT ; Start 09/11/16 at 21:00 Bisacodyl (Dulcolax Supp) 10 mg DAILY PRN [place] CONSTIPATION Last administered on 09/15/16 01:40; Admin Dose 10 MG; Start 09/14/16 at 09:00 TRUDY HILTON NP Sep 15, 2016 08:45
--- NOTE | 2016-09-15 10:17 | CONS ---
Date/Time of Note Date/Time of Note DATE: 09/15/16 TIME: 10:14 Assessment/Plan Assessment/Plan Additional Assessment/Plan Chest x-ray was reviewed from today which is showing a left lower lobe infiltrate/atelectasis. Endotracheal tube is at an adequate level. Ventilator setting; AC of 20, tidal volume 550, PEEP of 5, 45% FiO2. Patient off sedation for the last 1 hour. Assessment recommendations; 1. Patient admitted for hypercapnic and hypoxemic respiratory failure due to underlying obesity/hypoventilation syndrome. Patient upper respiratory failure due to left mainstem mucous plugging causing complete left lung atelectasis. Postintubation chest x-rays improved. However persistent mild left lower lobe infiltrative changes are still present. Patient currently on appropriate antibiotic regimen. 2. Significant improvement in oxygenation. Continue to hold sedation. Decrease FiO2 to keep O2 saturation around 92-94%. Once the patient is completely awake and off sedation he will be evaluated for possible weaning from ventilator. Consultation Date/Type/Reason Admit Date/Time Aug 30, 2016 at 23:34 Type of Consultation: Pulmonary/critical care 24 HR Interval Summary Free Text/Dictation Patient condition remains critical. Still requiring full ventilator support. Patient however has remained hemodynamically stable. General exam; middle-aged male, morbidly obese, orally intubated, sedated. Currently in no distress. Exam/Review of Systems Vital Signs Vitals Vital Signs Date Time Temp Pulse Resp B/P Pulse Ox O2 Delivery O2 Flow Rate FiO2 09/15/16 08:00 98.4 86 20 94/65 100 Mechanical Ventilator 09/15/16 05:37 45 Intake and Output 09/14/16 09/14/16 09/15/16 15:00 23:00 07:00 Intake Total 535.02 ml 390.89 ml 566.28 ml Output Total 475 ml 390 ml 350 ml Balance 60.02 ml 0.89 ml 216.28 ml Exam HEENT exam; supple neck, JVD difficult to see because of short neck. Orally intubated. Patient has fair dentition. Pupils are small bilaterally. No neck masses. No thyromegaly. Chest exam; diminished but clear breath sound. S1-S2 audible, no murmurs. Regular rhythm. Abdomen exam; protuberant. Bowel sounds audible. No organomegaly. Extremity exam; no peripheral edema. Pulses 1+ bilaterally. TELEPHONER examination : patient is sedated. Results Result Diagram: 09/15/16 0400 09/15/16 0400 Results 24 hrs Laboratory Tests Test 09/15/16 04:00 09/15/16 05:30 White Blood Count 7.5 Red Blood Count 4.27 L Hemoglobin 12.6 L Hematocrit 38.6 L Mean Corpuscular Volume 90.4 Mean Corpuscular Hemoglobin 29.5 Mean Corpuscular Hemoglobin Concent 32.6 Red Cell Distribution Width 14.9 H Platelet Count 114 L Mean Platelet Volume 10.8 H Neutrophils % 71.9 Lymphocytes % 13.8 L Monocytes % 8.1 Eosinophils % 5.4 Basophils % 0.5 Nucleated Red Blood Cells % 0.0 Neutrophils # 5.4 Lymphocytes # 1.0 Monocytes # 0.6 Eosinophils # 0.4 Basophils # 0.0 Nucleated Red Blood Cells # 0.0 Sodium Level 144 Potassium Level 3.6 Chloride Level 107 Carbon Dioxide Level 25 Anion Gap 16 # Blood Urea Nitrogen 17 Creatinine 0.64 Glucose Level 93 Calcium Level 9.3 Phosphorus Level 4.1 Magnesium Level 1.8 Total Bilirubin 0.5 Direct Bilirubin 0.00 Indirect Bilirubin 0.5 Aspartate Amino Transf (AST/SGOT) 47 H Alanine Aminotransferase (ALT/SGPT) 47 Alkaline Phosphatase 102 Total Protein 6.5 Albumin 3.0 L Globulin 3.50 H Albumin/Globulin Ratio 0.85 Ammonia 74 H Medications Medications Current Medications Morphine Sulfate (morphine) 3 mg Q4H PRN IV PAIN; Start 08/31/16 at 01:00 Ondansetron HCl (Zofran Inj) 4 mg Q6H PRN IV NAUSEA AND/OR VOMITING; Start 02/06 at 02:00 Morphine Sulfate 2 mg 2 mg Q4H PRN IV PAIN LEVEL 7-10 Last administered on 09/14 09:45; Admin Dose 2 MG; Start 08/31/16 at 02:00 Propofol 100 ml @ 4.695 mls/ hr Q12H IV Last administered on 09/15/16 07:17; Admin Dose 18.78 MLS/HR; Start 09/07/16 at 13:30 Piperacillin Sod/ Tazobactam Sod (Zosyn 3.375gm/ 100 ml (Pmx)) 100 ml @ 200 mls /hr Q6 IVPB Last administered on 09/15/16 05:31; Admin Dose 200 MLS/HR; Start 09/07/16 at 16:00 Lactulose 20 gm 20 gm Q8 NGT Last administered on 09/15/16 05:31; Admin Dose 20 GM; Start 09/07/16 at 16:00 Norepinephrine/ Dextrose (Levophed/D5W) 500 ml @ 1.87 mls/hr TITRATE IV Last administered on 09/15/16 06:19; Admin Dose 1.87 MLS/HR; Start 09/07/16 at 17:00 Acetazolamide (Diamox) 250 mg TID NGT Last administered on 09/15/16 08:23; Admin Dose 250 MG; Start 09/08/16 at 21:00 IV Flush (NS 10 ml) 10 ml PRN PRN IV IV PROTOCOL; Start 09/08/16 at 17:00 Potassium Chloride (Potassium Chloride Pwd/Soln) 20 meq BID NGT Last administered on 09/15/16 08:16; Admin Dose 20 MEQ; Start 09/11/16 at 21:00 Aspirin (Aspirin) 81 mg DAILY NGT Last administered on 09/15/16 08:16; Admin Dose 81 MG; Start 09/12/16 at 09:00 Atorvastatin Calcium (Lipitor) 10 mg QHS NGT Last administered on 09/14/16 21: 19; Admin Dose 10 MG; Start 09/11/16 at 20:06 Digoxin (Digoxin) 0.125 mg DAILY@13 NGT Last administered on 09/14/16 13:11; Admin Dose 0.125 MG; Start 09/11/16 at 20:06 Famotidine (Pepcid) 20 mg BID NGT Last administered on 09/15/16 08:16; Admin Dose 20 MG; Start 09/11/16 at 20:06 Ferrous Sulfate (Feosol Liquid Cup) 300 mg DAILY NGT Last administered on 08:16; Admin Dose 300 MG; Start 09/12/16 at 09:00 Folic Acid (Folic Acid) 1 mg DAILY NGT Last administered on 09/15/16 08:16; Admin Dose 1 MG; Start 09/11/16 at 20:10 Losartan Potassium (Cozaar) 50 mg BID NGT ; Start 09/11/16 at 20:10; Status Future Hold Multivitamins Therapeutic (Theragran) 1 tab DAILY NGT Last administered on 09/15 08:16; Admin Dose 1 TAB; Start 09/11/16 at 20:11 Thiamine HCl (Vitamin B1) 100 mg DAILY NGT Last administered on 09/15/16 08:16 ; Admin Dose 100 MG; Start 09/11/16 at 20:11 Spironolactone (Aldactone) 50 mg DAILY NGT Last administered on 09/15/16 08:16 ; Admin Dose 50 MG; Start 09/12/16 at 09:00 Diltiazem HCl (Cardizem) 60 mg QID NGT ; Start 09/11/16 at 21:00 Bisacodyl (Dulcolax Supp) 10 mg DAILY PRN [place] CONSTIPATION Last administered on 09/15/16 01:40; Admin Dose 10 MG; Start 09/14/16 at 09:00 ABIMAEL ZAIDI Sep 15, 2016 10:17
[2016-09-15] MEDS: DIGOXIN 0.125 MG TAB NGT SCH (12:35)
[2016-09-15] MEDS: ATORVASTATIN 10 MG TAB NGT SCH (21:10)
[2016-09-16] VITALS (46 sets, daily range): BP systolic 83–123; BP diastolic 54–95; PULSE 80–125; RESP 18–37
[2016-09-16] MEDS: IPRATROPIUM (HFA) 12.9 GM INHALER INH SCH ×4 (01:10→19:11)
[2016-09-16] MEDS: PROPOFOL 100 ML IV SCH ×3 (02:11→21:13)
[2016-09-16 04:43] LABS: ADD SCAN DIFF NO
[2016-09-16 04:45] LABS: BASOPHIL # 0.1 10^3/ul (0.0-0.1); BASOPHILS % 0.5 % (0.0-2.0); EOSINOPHILS # 0.4 10^3/ul (0.0-0.5); EOSINOPHILS % 4.2 % (0.0-7.0); HEMATOCRIT 39.2 % (42.0-52.0); HEMOGLOBIN 12.9 g/dl (14.0-18.0); LYMPHOCYTES % 10.9 % (15.0-51.0); MEAN CORPUSCULAR HEMOGLOBIN 29.4 pg (29.0-33.0); MEAN CORPUSCULAR HGB CONC 32.9 g/dl (32.0-37.0); MEAN CORPUSCULAR VOLUME 89.3 fl (82.0-101.0); MEAN PLATELET VOLUME 10.9 fl (7.4-10.4); MONOCYTE # 0.7 10^3/ul (0.3-0.9); MONOCYTES % 7.4 % (0.0-11.0); NEUTROPHIL # 7.2 10^3/ul (1.6-7.5); NEUTROPHILS % 76.7 % (39.0-77.0); PLATELET COUNT 132 10^3/UL (140-415); RED BLOOD COUNT 4.39 10^6/ul (4.70-6.10); RED CELL DISTRIBUTION WIDTH 14.9 % (11.5-14.5); WHITE BLOOD COUNT 9.4 10^3/ul (4.8-10.8)
[2016-09-16 05:09] LABS: MAGNESIUM 1.8 mg/dl (1.7-2.5); PHOSPHORUS 4.1 mg/dl (2.5-4.9)
[2016-09-16 05:19] LABS: ALBUMIN 3.1 g/dl (3.3-4.9); ALBUMIN/GLOBULIN RATIO 0.88; BILIRUBIN,INDIRECT 0.9 mg/dl (0-1.1); BILIRUBIN,TOTAL 0.9 mg/dl (0.2-1.3); CALCIUM 9.2 mg/dl (8.4-10.2); CREATININE 0.65 mg/dl (0.61-1.24); TOTAL PROTEIN 6.6 g/dl (6.1-8.1)
[2016-09-16] MEDS: LACTULOSE 30ML CUP NGT SCH ×3 (05:35→21:13)
[2016-09-16] MEDS: PIPER-TAZO 3.375 GM IV (PMX) 100 ML IVPB SCH ×4 (05:35→23:35)
--- NOTE | 2016-09-16 07:13 | PN ---
Date/Time of Note Date/Time of Note DATE: 09/16/16 TIME: 07:10 Assessment/Plan VTE Prophylaxis VTE Prophylaxis Intervention: heparin Lines/Catheters [facility] Type ([facility] PICC Line Central line still needed: Yes Urinary Cath still in place: Yes Reason Cath still needed: other (indicate) Assessment/Plan Chief Complaint/Hosp Course 1. Chest pain. Acute coronary syndrome ruled out. Troponins negative. The patient's 2D echocardiogram showing ejection fraction of 55%. The patient will be continued on aspirin. Cardiology following the patient. 2. Essential hypertension. Currently hypotensive. Status post pressors. Resume antihypertensives as the blood pressure allows. 3. Chronic obstructive pulmonary disease. The patient on inhaled bronchodilators. Pulmonology following. 4. Acute respiratory failure. Acute on chronic. Hypoxic and hypercapnic. Got intubated on 09/07/2016 because of worsening respiratory distress. Ventilator management as per Pulmonary. 5. Atrial fibrillation. Rate controlled. Unable to anticoagulate because of underlying thrombocytopenia. 6. Alcoholic liver disease. Continue diuretics. The patient will also be continued on lactulose because of underlying hyperammonemia. 7. Thrombocytopenia. Most probably from acute alcoholic liver disease. Monitor for any bleeding. 8. Hyponatremia. Resolved. S/P 1 dose of vasopressin antagonist on 2016. 9. Alcohol abuse. The patient's last drink was on the day prior to hospitalization. The patient will be maintained on a daily thiamine. Status post Librium taper. 10. Possible aspiration with aspiration pneumonia. The patient on empiric antibiotics including coverage for anaerobes. 11. Acute on chronic CHF exacerbation. Diastolic dysfunction. Continue diuretics if blood pressure allows. 12. Fluid, electrolytes and nutrition. NG tube feedings. 13. Deep venous thrombosis prophylaxis. Subcutaneous heparin. Will hold this if there is worsening thrombocytopenia. 14. Gastrointestinal prophylaxis. H2 receptor blockers. 15. Plan. Continue ICU monitoring. Careful diuresis.Continue lactulose. Ventilator weaning as per Pulmonary. Case discussed with Dr. Hoffmann. Critical care time: 35 minutes. Problems: Subjective 24 Hr Interval Summary Free Text/Dictation Remains intubated. Failed weaning trials yesterday. Exam/Review of Systems Vital Signs Vitals Vital Signs Date Time Temp Pulse Resp B/P Pulse Ox O2 Delivery O2 Flow Rate FiO2 09/16/16 05:00 92 23 104/69 95 Mechanical Ventilator 09/16/16 05:00 35 6/27/17 04:00 99.0 Intake and Output 09/15/16 09/15/16 09/16/16 15:00 23:00 07:00 Intake Total 441.95 ml 386.011 ml 453.876 ml Output Total 525 ml 460 ml 250 ml Balance -83.05 ml -73.989 ml 203.876 ml Exam GENERAL: This is a morbidly obese male patient lying in orally intubated. HEENT: Head normocephalic and atraumatic. Eyes: Anicteric sclerae. Conjunctivae clear. ENT: Nasal septum is midline. NGT in place. Oral mucosa is dry.Orally intubated. NECK: Short with increased neck circumference. RESPIRATORY: Bilaterally diminished breath sounds. Orally intubated. On AC mode ventilation. CARDIAC: Irregularly irregular rhythm. S1 and S2 heard. ABDOMEN: Obese. Bowel sounds hypoactive. GENITOURINARY: Deferred. EXTREMITIES: No cyanosis, no clubbing. Bilateral lower extremity 1+ pitting edema. Peripheral pulses are palpable. NEUROLOGIC: The patient is sedated. Results Result Diagram: 09/16/16 0330 09/16/16 0330 Results 24 hrs Laboratory Tests Test 09/16/16 03:30 White Blood Count 9.4 # Red Blood Count 4.39 L Hemoglobin 12.9 L Hematocrit 39.2 L Mean Corpuscular Volume 89.3 Mean Corpuscular Hemoglobin 29.4 Mean Corpuscular Hemoglobin Concent 32.9 Red Cell Distribution Width 14.9 H Platelet Count 132 L Mean Platelet Volume 10.9 H Neutrophils % 76.7 Lymphocytes % 10.9 L Monocytes % 7.4 Eosinophils % 4.2 Basophils % 0.5 Nucleated Red Blood Cells % 0.0 Neutrophils # 7.2 Lymphocytes # 1.0 Monocytes # 0.7 Eosinophils # 0.4 Basophils # 0.1 Nucleated Red Blood Cells # 0.0 Sodium Level 144 Potassium Level 4.0 Chloride Level 113 H Carbon Dioxide Level 22 Anion Gap 13 Blood Urea Nitrogen 18 Creatinine 0.65 Glucose Level 86 Calcium Level 9.2 Phosphorus Level 4.1 Magnesium Level 1.8 Total Bilirubin 0.9 Direct Bilirubin 0.00 Indirect Bilirubin 0.9 Aspartate Amino Transf (AST/SGOT) 64 H Alanine Aminotransferase (ALT/SGPT) 51 Alkaline Phosphatase 104 Ammonia 70 H Total Protein 6.6 Albumin 3.1 L Globulin 3.50 H Albumin/Globulin Ratio 0.88 Medications Medications Current Medications Morphine Sulfate (morphine) 3 mg Q4H PRN IV PAIN; Start 08/31/16 at 01:00 Ondansetron HCl (Zofran Inj) 4 mg Q6H PRN IV NAUSEA AND/OR VOMITING; Start 02/06 at 02:00 Morphine Sulfate 2 mg 2 mg Q4H PRN IV PAIN LEVEL 7-10 Last administered on 09/14 09:45; Admin Dose 2 MG; Start 08/31/16 at 02:00 Propofol 100 ml @ 4.695 mls/ hr Q12H IV Last administered on 09/16/16 02:11; Admin Dose 11.268 MLS/HR; Start 09/07/16 at 13:30 Piperacillin Sod/ Tazobactam Sod (Zosyn 3.375gm/ 100 ml (Pmx)) 100 ml @ 200 mls /hr Q6 IVPB Last administered on 09/16/16 05:35; Admin Dose 200 MLS/HR; Start 09/07/16 at 16:00 Lactulose 20 gm 20 gm Q8 NGT Last administered on 09/16/16 05:35; Admin Dose 20 GM; Start 09/07/16 at 16:00 Norepinephrine/ Dextrose (Levophed/D5W) 500 ml @ 1.87 mls/hr TITRATE IV Last administered on 09/15/16 06:19; Admin Dose 1.87 MLS/HR; Start 09/07/16 at 17:00 Acetazolamide (Diamox) 250 mg TID NGT Last administered on 09/15/16 21:10; Admin Dose 250 MG; Start 09/08/16 at 21:00 IV Flush (NS 10 ml) 10 ml PRN PRN IV IV PROTOCOL; Start 09/08/16 at 17:00 Potassium Chloride (Potassium Chloride Pwd/Soln) 20 meq BID NGT Last administered on 09/15/16 21:10; Admin Dose 20 MEQ; Start 09/11/16 at 21:00 Aspirin (Aspirin) 81 mg DAILY NGT Last administered on 09/15/16 08:16; Admin Dose 81 MG; Start 09/12/16 at 09:00 Atorvastatin Calcium (Lipitor) 10 mg QHS NGT Last administered on 09/15/16 21: 10; Admin Dose 10 MG; Start 09/11/16 at 20:06 Digoxin (Digoxin) 0.125 mg DAILY@13 NGT Last administered on 09/15/16 12:35; Admin Dose 0.125 MG; Start 09/11/16 at 20:06 Famotidine (Pepcid) 20 mg BID NGT Last administered on 09/15/16 21:10; Admin Dose 20 MG; Start 09/11/16 at 20:06 Ferrous Sulfate (Feosol Liquid Cup) 300 mg DAILY NGT Last administered on 08:16; Admin Dose 300 MG; Start 09/12/16 at 09:00 Folic Acid (Folic Acid) 1 mg DAILY NGT Last administered on 09/15/16 08:16; Admin Dose 1 MG; Start 09/11/16 at 20:10 Losartan Potassium (Cozaar) 50 mg BID NGT ; Start 09/11/16 at 20:10; Status Future Hold Multivitamins Therapeutic (Theragran) 1 tab DAILY NGT Last administered on 09/15 08:16; Admin Dose 1 TAB; Start 09/11/16 at 20:11 Thiamine HCl (Vitamin B1) 100 mg DAILY NGT Last administered on 09/15/16 08:16 ; Admin Dose 100 MG; Start 09/11/16 at 20:11 Spironolactone (Aldactone) 50 mg DAILY NGT Last administered on 09/15/16 08:16 ; Admin Dose 50 MG; Start 09/12/16 at 09:00 Diltiazem HCl (Cardizem) 60 mg QID NGT ; Start 09/11/16 at 21:00 Bisacodyl (Dulcolax Supp) 10 mg DAILY PRN [place] CONSTIPATION Last administered on 09/15/16 01:40; Admin Dose 10 MG; Start 09/14/16 at 09:00 TRUDY HILTON NP Sep 16, 2016 07:13
[2016-09-16] MEDS: ALBUTEROL 18 GM INHALER INH SCH ×3 (07:22→19:11)
[2016-09-16] MEDS: MULTIVITAMINS THERAPEUTIC TAB NGT SCH (09:02)
[2016-09-16] MEDS: FERROUS SULFATE 60 MG/ML 5ML CUP NGT SCH (09:02)
[2016-09-16] MEDS: SPIRONOLACTONE 50 MG TAB NGT SCH (09:02)
[2016-09-16] MEDS: ACETAZOLAMIDE 250 MG TAB NGT SCH ×3 (09:02→21:13)
[2016-09-16] MEDS: THIAMINE 100 MG TAB NGT SCH (09:02)
[2016-09-16] MEDS: FAMOTIDINE 20 MG TAB NGT SCH ×2 (09:02→21:13)
[2016-09-16] MEDS: POTASSIUM CHLORIDE 20 MEQ POWDER FOR ORAL SOLN NGT SCH ×2 (09:03→21:15)
[2016-09-16] MEDS: ASPIRIN 81 MG TAB NGT SCH (09:03)
[2016-09-16] MEDS: FOLIC ACID 1 MG TAB NGT SCH (09:03)
--- NOTE | 2016-09-16 10:09 | CONS ---
Date/Time of Note Date/Time of Note DATE: 09/16/16 TIME: 10:06 Assessment/Plan Assessment/Plan Additional Assessment/Plan Ventilator setting; AC of 20, tidal volume 550, PEEP of 5, 35% FiO2. Patient currently on propofol at 12 mics per kilogram per minute. Assessment recommendations; 1. Patient admitted for hypercapnic and hypoxemic respiratory failure due to underlying sleep apnea/obesity hypoventilation syndrome. Patient was doing fairly well then decompensated because of extensive left lung atelectasis from left mainstem mucous plugging, requiring intubation. Postintubation chest x- ray showed marked reexpansion of the left lung. However persistent left lower lobe pneumonia is present. 2. History of alcohol abuse. For sedation again. When the patient off sedation he will be evaluated for weaning from ventilator. Continue current supportive care. Consultation Date/Type/Reason Admit Date/Time Aug 30, 2016 at 23:34 Type of Consultation: Pulmonary/critical care 24 HR Interval Summary Free Text/Dictation Patient's condition remains critical. Still requiring full ventilator support. Patient failed a weaning trial yesterday. General exam; middle-aged male, morbidly obese, orally intubated, sedated, currently in no distress. Exam/Review of Systems Vital Signs Vitals Vital Signs Date Time Temp Pulse Resp B/P Pulse Ox O2 Delivery O2 Flow Rate FiO2 09/16/16 09:00 90 20 100 35 09/16/16 05:00 104/69 Mechanical Ventilator 09/16/16 04:00 99.0 Intake and Output 09/15/16 09/15/16 09/16/16 15:00 23:00 07:00 Intake Total 441.95 ml 386.011 ml 453.876 ml Output Total 525 ml 460 ml 250 ml Balance -83.05 ml -73.989 ml 203.876 ml Exam HEENT exam; supple neck, JVD difficult to see because of short neck. Patient has fair dentition. Orally intubated. Pupils are small bilaterally. No neck masses. No thyromegaly. Chest examined; diminished but clear vessel. S1-S2 audible, no murmurs. Regular rhythm. Abdomen exam is; protuberant. No organomegaly. Bowel sounds audible. Extremity exam; no peripheral edema. Pulses 1+ bilaterally. [employer] exam; patient is sedated. Results Result Diagram: 09/16/16 0330 09/16/16 0330 Results 24 hrs Laboratory Tests Test 09/16/16 03:30 White Blood Count 9.4 # Red Blood Count 4.39 L Hemoglobin 12.9 L Hematocrit 39.2 L Mean Corpuscular Volume 89.3 Mean Corpuscular Hemoglobin 29.4 Mean Corpuscular Hemoglobin Concent 32.9 Red Cell Distribution Width 14.9 H Platelet Count 132 L Mean Platelet Volume 10.9 H Neutrophils % 76.7 Lymphocytes % 10.9 L Monocytes % 7.4 Eosinophils % 4.2 Basophils % 0.5 Nucleated Red Blood Cells % 0.0 Neutrophils # 7.2 Lymphocytes # 1.0 Monocytes # 0.7 Eosinophils # 0.4 Basophils # 0.1 Nucleated Red Blood Cells # 0.0 Sodium Level 144 Potassium Level 4.0 Chloride Level 113 H Carbon Dioxide Level 22 Anion Gap 13 Blood Urea Nitrogen 18 Creatinine 0.65 Glucose Level 86 Calcium Level 9.2 Phosphorus Level 4.1 Magnesium Level 1.8 Total Bilirubin 0.9 Direct Bilirubin 0.00 Indirect Bilirubin 0.9 Aspartate Amino Transf (AST/SGOT) 64 H Alanine Aminotransferase (ALT/SGPT) 51 Alkaline Phosphatase 104 Ammonia 70 H Total Protein 6.6 Albumin 3.1 L Globulin 3.50 H Albumin/Globulin Ratio 0.88 Medications Medications Current Medications Morphine Sulfate (morphine) 3 mg Q4H PRN IV PAIN; Start 08/31/16 at 01:00 Ondansetron HCl (Zofran Inj) 4 mg Q6H PRN IV NAUSEA AND/OR VOMITING; Start 02/06 at 02:00 Morphine Sulfate 2 mg 2 mg Q4H PRN IV PAIN LEVEL 7-10 Last administered on 09/14 09:45; Admin Dose 2 MG; Start 08/31/16 at 02:00 Propofol 100 ml @ 4.695 mls/ hr Q12H IV Last administered on 09/16/16 02:11; Admin Dose 11.268 MLS/HR; Start 09/07/16 at 13:30 Piperacillin Sod/ Tazobactam Sod (Zosyn 3.375gm/ 100 ml (Pmx)) 100 ml @ 200 mls /hr Q6 IVPB Last administered on 09/16/16 05:35; Admin Dose 200 MLS/HR; Start 09/07/16 at 16:00 Lactulose 20 gm 20 gm Q8 NGT Last administered on 09/16/16 05:35; Admin Dose 20 GM; Start 09/07/16 at 16:00 Norepinephrine/ Dextrose (Levophed/D5W) 500 ml @ 1.87 mls/hr TITRATE IV Last administered on 09/15/16 06:19; Admin Dose 1.87 MLS/HR; Start 09/07/16 at 17:00 Acetazolamide (Diamox) 250 mg TID NGT Last administered on 09/16/16 09:02; Admin Dose 250 MG; Start 09/08/16 at 21:00 IV Flush (NS 10 ml) 10 ml PRN PRN IV IV PROTOCOL; Start 09/08/16 at 17:00 Potassium Chloride (Potassium Chloride Pwd/Soln) 20 meq BID NGT Last administered on 09/16/16 09:03; Admin Dose 20 MEQ; Start 09/11/16 at 21:00 Aspirin (Aspirin) 81 mg DAILY NGT Last administered on 09/16/16 09:03; Admin Dose 81 MG; Start 09/12/16 at 09:00 Atorvastatin Calcium (Lipitor) 10 mg QHS NGT Last administered on 09/15/16 21: 10; Admin Dose 10 MG; Start 09/11/16 at 20:06 Digoxin (Digoxin) 0.125 mg DAILY@13 NGT Last administered on 09/15/16 12:35; Admin Dose 0.125 MG; Start 09/11/16 at 20:06 Famotidine (Pepcid) 20 mg BID NGT Last administered on 09/16/16 09:02; Admin Dose 20 MG; Start 09/11/16 at 20:06 Ferrous Sulfate (Feosol Liquid Cup) 300 mg DAILY NGT Last administered on 09:02; Admin Dose 300 MG; Start 09/12/16 at 09:00 Folic Acid (Folic Acid) 1 mg DAILY NGT Last administered on 09/16/16 09:03; Admin Dose 1 MG; Start 09/11/16 at 20:10 Losartan Potassium (Cozaar) 50 mg BID NGT ; Start 09/11/16 at 20:10; Status Future Hold Multivitamins Therapeutic (Theragran) 1 tab DAILY NGT Last administered on 09/16 09:02; Admin Dose 1 TAB; Start 09/11/16 at 20:11 Thiamine HCl (Vitamin B1) 100 mg DAILY NGT Last administered on 09/16/16 09:02 ; Admin Dose 100 MG; Start 09/11/16 at 20:11 Spironolactone (Aldactone) 50 mg DAILY NGT Last administered on 09/16/16 09:02 ; Admin Dose 50 MG; Start 09/12/16 at 09:00 Diltiazem HCl (Cardizem) 60 mg QID NGT ; Start 09/11/16 at 21:00 Bisacodyl (Dulcolax Supp) 10 mg DAILY PRN [place] CONSTIPATION Last administered on 09/15/16 01:40; Admin Dose 10 MG; Start 09/14/16 at 09:00 ABIMAEL ZAIDI Sep 16, 2016 10:08
[2016-09-16] MEDS ORDERED: AMIODARONE 200 MG TAB NGT SCH (13:00)
[2016-09-16] MEDS: DILTIAZEM 60 MG TAB NGT SCH ×3 (13:00→21:00)
[2016-09-16] MEDS: DIGOXIN 0.125 MG TAB NGT SCH (13:08)
--- NOTE | 2016-09-16 15:34 | RADRPT ---
PROCEDURE: XR Chest. CLINICAL INDICATION: Shortness of breath. TECHNIQUE: Single frontal view. COMPARISON: 09/15/2016. FINDINGS: The endotracheal tube, nasogastric tube, and right arm PICC line remain in satisfactory position. M ild pulmonary edema and bibasilar atelectasis are slightly improved. The heart is enlarged. Calcification is present in the aorta consistent with atherosclerosis. There is no pleural effusion. There is no pneumothorax. IMPRESSION: 1. Slightly improved appearance of the lungs. 2. No other change from 09/15/2016. RPTAT: QQ .Silverio Conway MD, MD Date Time Electronically viewed and signed by .Silverio Conway MD, MD on 09/16/2016 15:34 .R/
[2016-09-16] MEDS: AMIODARONE 200 MG TAB NGT SCH (21:13)
[2016-09-16] MEDS: ATORVASTATIN 10 MG TAB NGT SCH (21:13)
[2016-09-17] VITALS (34 sets, daily range): BP systolic 94–128; BP diastolic 48–83; PULSE 38–116; RESP 2–33
[2016-09-17] MEDS: IPRATROPIUM (HFA) 12.9 GM INHALER INH SCH ×4 (01:23→20:09)
[2016-09-17 04:54] LABS: ADD SCAN DIFF NO
[2016-09-17 05:32] LABS: MAGNESIUM 1.7 mg/dl (1.7-2.5); PHOSPHORUS 3.9 mg/dl (2.5-4.9)
[2016-09-17 05:36] LABS: ALBUMIN 3.3 g/dl (3.3-4.9); BILIRUBIN,INDIRECT 0.6 mg/dl (0-1.1); BILIRUBIN,TOTAL 0.6 mg/dl (0.2-1.3); CALCIUM 9.1 mg/dl (8.4-10.2); CREATININE 0.71 mg/dl (0.61-1.24); POTASSIUM 3.4 mmol/L (3.5-5.1); TOTAL PROTEIN 6.6 g/dl (6.1-8.1)
[2016-09-17 05:39] LABS: BASOPHIL # 0.1 10^3/ul (0.0-0.1); BASOPHILS % 0.7 % (0.0-2.0); EOSINOPHILS # 0.4 10^3/ul (0.0-0.5); EOSINOPHILS % 4.1 % (0.0-7.0); HEMATOCRIT 38.9 % (42.0-52.0); HEMOGLOBIN 12.8 g/dl (14.0-18.0); LYMPHOCYTES # 1.1 10^3/ul (0.8-2.9); LYMPHOCYTES % 11.9 % (15.0-51.0); MEAN CORPUSCULAR HEMOGLOBIN 29.6 pg (29.0-33.0); MEAN CORPUSCULAR HGB CONC 32.9 g/dl (32.0-37.0); MEAN CORPUSCULAR VOLUME 89.8 fl (82.0-101.0); MEAN PLATELET VOLUME 11.1 fl (7.4-10.4); MONOCYTE # 0.6 10^3/ul (0.3-0.9); MONOCYTES % 6.7 % (0.0-11.0); NEUTROPHILS % 76.2 % (39.0-77.0); PLATELET COUNT 135 10^3/UL (140-415); RED BLOOD COUNT 4.33 10^6/ul (4.70-6.10); RED CELL DISTRIBUTION WIDTH 14.8 % (11.5-14.5); WHITE BLOOD COUNT 9.2 10^3/ul (4.8-10.8)
[2016-09-17] MEDS: LACTULOSE 30ML CUP NGT SCH ×3 (06:16→21:53)
[2016-09-17] MEDS: PIPER-TAZO 3.375 GM IV (PMX) 100 ML IVPB SCH ×3 (06:17→17:38)
[2016-09-17] MEDS: PROPOFOL 100 ML IV SCH ×3 (06:17→18:21)
[2016-09-17] MEDS: ALBUTEROL 18 GM INHALER INH SCH ×3 (07:01→20:09)
--- NOTE | 2016-09-17 07:24 | PN ---
Date/Time of Note Date/Time of Note DATE: 09/17/16 TIME: 07:23 Assessment/Plan VTE Prophylaxis VTE Prophylaxis Intervention: heparin Lines/Catheters IV Catheter Type (from [facility]): PICC Line Central line still needed: Yes Urinary Cath still in place: Yes Reason Cath still needed: other (indicate) Assessment/Plan Chief Complaint/Hosp Course 1. Chest pain. Acute coronary syndrome ruled out. Troponins negative. The patient's 2D echocardiogram showing ejection fraction of 55%. The patient will be continued on aspirin. Cardiology following the patient. 2. Essential hypertension. Currently hypotensive. Status post pressors. Resume antihypertensives as the blood pressure allows. 3. Chronic obstructive pulmonary disease. The patient on inhaled bronchodilators. Pulmonology following. 4. Acute respiratory failure. Acute on chronic. Hypoxic and hypercapnic. Got intubated on 09/07/2016 because of worsening respiratory distress. Ventilator management as per Pulmonary. 5. Atrial fibrillation. Rate controlled. Unable to anticoagulate because of underlying thrombocytopenia. 6. Alcoholic liver disease. Continue diuretics. The patient will also be continued on lactulose because of underlying hyperammonemia. 7. Thrombocytopenia. Most probably from acute alcoholic liver disease. Monitor for any bleeding. 8. Hyponatremia. Resolved. S/P 1 dose of vasopressin antagonist on 2016. 9. Alcohol abuse. The patient's last drink was on the day prior to hospitalization. The patient will be maintained on a daily thiamine. Status post Librium taper. 10. Possible aspiration with aspiration pneumonia. The patient on empiric antibiotics including coverage for anaerobes. 11. Acute on chronic CHF exacerbation. Diastolic dysfunction. Continue diuretics if blood pressure allows. 12. Fluid, electrolytes and nutrition. NG tube feedings. 13. Deep venous thrombosis prophylaxis. Subcutaneous heparin. Will hold this if there is worsening thrombocytopenia. 14. Gastrointestinal prophylaxis. H2 receptor blockers. 15. Plan. Continue ICU monitoring. Careful diuresis.Continue lactulose. Ventilator weaning as per Pulmonary. Replete potassium. Case discussed with Dr. Hoffmann. Critical care time: 35 minutes. Problems: Subjective 24 Hr Interval Summary Free Text/Dictation Patient remains intubated. Exam/Review of Systems Vital Signs Vitals Vital Signs Date Time Temp Pulse Resp B/P Pulse Ox O2 Delivery O2 Flow Rate FiO2 09/17/16 07:00 94 26 127/77 100 Mechanical Ventilator 09/17/16 05:00 35 09/17/16 04:00 99.0 Intake and Output 09/16/16 09/16/16 09/17/16 15:00 23:00 07:00 Intake Total 499.072 ml 470.144 ml 510.425 ml Output Total 450 ml 400 ml 325 ml Balance 49.072 ml 70.144 ml 185.425 ml Exam GENERAL: This is a morbidly obese male patient lying in orally intubated. HEENT: Head normocephalic and atraumatic. Eyes: Anicteric sclerae. Conjunctivae clear. ENT: Nasal septum is midline. NGT in place. Oral mucosa is dry.Orally intubated. NECK: Short with increased neck circumference. RESPIRATORY: Bilaterally diminished breath sounds. Orally intubated. On AC mode ventilation. CARDIAC: Irregularly irregular rhythm. S1 and S2 heard. ABDOMEN: Obese. Bowel sounds hypoactive. GENITOURINARY: Deferred. EXTREMITIES: No cyanosis, no clubbing. Bilateral lower extremity 1+ pitting edema. Peripheral pulses are palpable. NEUROLOGIC: The patient is sedated. Results Result Diagram: 09/17/16 0350 09/17/16 0350 Results 24 hrs Laboratory Tests Test 09/17/16 03:50 White Blood Count 9.2 Red Blood Count 4.33 L Hemoglobin 12.8 L Hematocrit 38.9 L Mean Corpuscular Volume 89.8 Mean Corpuscular Hemoglobin 29.6 Mean Corpuscular Hemoglobin Concent 32.9 Red Cell Distribution Width 14.8 H Platelet Count 135 L Mean Platelet Volume 11.1 H Neutrophils % 76.2 Lymphocytes % 11.9 L Monocytes % 6.7 Eosinophils % 4.1 Basophils % 0.7 Nucleated Red Blood Cells % 0.0 Neutrophils # 7.0 Lymphocytes # 1.1 Monocytes # 0.6 Eosinophils # 0.4 Basophils # 0.1 Nucleated Red Blood Cells # 0.0 Sodium Level 142 Potassium Level 3.4 L Chloride Level 112 H Carbon Dioxide Level 24 Anion Gap 9 Blood Urea Nitrogen 18 Creatinine 0.71 Glucose Level 98 Calcium Level 9.1 Phosphorus Level 3.9 Magnesium Level 1.7 Total Bilirubin 0.6 Direct Bilirubin 0.00 Indirect Bilirubin 0.6 Aspartate Amino Transf (AST/SGOT) 46 Alanine Aminotransferase (ALT/SGPT) 49 Alkaline Phosphatase 111 Ammonia 68 H Total Protein 6.6 Albumin 3.3 Globulin 3.30 H Albumin/Globulin Ratio 1.00 Medications Medications Current Medications Morphine Sulfate (morphine) 3 mg Q4H PRN IV PAIN; Start 08/31/16 at 01:00 Ondansetron HCl (Zofran Inj) 4 mg Q6H PRN IV NAUSEA AND/OR VOMITING; Start 02/06 at 02:00 Morphine Sulfate 2 mg 2 mg Q4H PRN IV PAIN LEVEL 7-10 Last administered on 09/14 09:45; Admin Dose 2 MG; Start 08/31/16 at 02:00 Propofol 100 ml @ 4.695 mls/ hr Q12H IV Last administered on 09/17/16 06:17; Admin Dose 14.085 MLS/HR; Start 09/07/16 at 13:30 Piperacillin Sod/ Tazobactam Sod (Zosyn 3.375gm/ 100 ml (Pmx)) 100 ml @ 200 mls /hr Q6 IVPB Last administered on 09/17/16 06:17; Admin Dose 200 MLS/HR; Start 09/07/16 at 16:00 Lactulose 20 gm 20 gm Q8 NGT Last administered on 09/17/16 06:16; Admin Dose 20 GM; Start 09/07/16 at 16:00 Norepinephrine/ Dextrose (Levophed/D5W) 500 ml @ 1.87 mls/hr TITRATE IV Last administered on 09/15/16 06:19; Admin Dose 1.87 MLS/HR; Start 09/07/16 at 17:00 Acetazolamide (Diamox) 250 mg TID NGT Last administered on 09/16/16 21:13; Admin Dose 250 MG; Start 09/08/16 at 21:00 IV Flush (NS 10 ml) 10 ml PRN PRN IV IV PROTOCOL; Start 09/08/16 at 17:00 Potassium Chloride (Potassium Chloride Pwd/Soln) 20 meq BID NGT Last administered on 09/16/16 21:15; Admin Dose 20 MEQ; Start 09/11/16 at 21:00 Aspirin (Aspirin) 81 mg DAILY NGT Last administered on 09/16/16 09:03; Admin Dose 81 MG; Start 09/12/16 at 09:00 Atorvastatin Calcium (Lipitor) 10 mg QHS NGT Last administered on 09/16/16 21: 13; Admin Dose 10 MG; Start 09/11/16 at 20:06 Digoxin (Digoxin) 0.125 mg DAILY@13 NGT Last administered on 09/16/16 13:08; Admin Dose 0.125 MG; Start 09/11/16 at 20:06 Famotidine (Pepcid) 20 mg BID NGT Last administered on 09/16/16 21:13; Admin Dose 20 MG; Start 09/11/16 at 20:06 Ferrous Sulfate (Feosol Liquid Cup) 300 mg DAILY NGT Last administered on 09:02; Admin Dose 300 MG; Start 09/12/16 at 09:00 Folic Acid (Folic Acid) 1 mg DAILY NGT Last administered on 09/16/16 09:03; Admin Dose 1 MG; Start 09/11/16 at 20:10 Losartan Potassium (Cozaar) 50 mg BID NGT ; Start 09/11/16 at 20:10; Status Future Hold Multivitamins Therapeutic (Theragran) 1 tab DAILY NGT Last administered on 09/16 09:02; Admin Dose 1 TAB; Start 09/11/16 at 20:11 Thiamine HCl (Vitamin B1) 100 mg DAILY NGT Last administered on 09/16/16 09:02 ; Admin Dose 100 MG; Start 09/11/16 at 20:11 Spironolactone (Aldactone) 50 mg DAILY NGT Last administered on 09/16/16 09:02 ; Admin Dose 50 MG; Start 09/12/16 at 09:00 Bisacodyl (Dulcolax Supp) 10 mg DAILY PRN [place] CONSTIPATION Last administered on 09/15/16 01:40; Admin Dose 10 MG; Start 09/14/16 at 09:00 Diltiazem HCl 60 mg 60 mg QID NGT ; Start 09/16/16 at 13:00 Phenylephrine HCl/ Dextrose (Jacinto-Syneph/D5W) 500 ml @ 75 mls/hr TITRATE IV ; Start 09/16/16 at 18:30 Amiodarone HCl (Cordarone) 200 mg BID NGT Last administered on 09/16/16 21:13 ; Admin Dose 200 MG; Start 09/16/16 at 21:00 TRUDY HILTON NP Sep 17, 2016 07:24
[2016-09-17] MEDS: DILTIAZEM 60 MG TAB NGT SCH ×4 (08:30→20:50)
[2016-09-17] MEDS: MULTIVITAMINS THERAPEUTIC TAB NGT SCH (08:30)
[2016-09-17] MEDS: SPIRONOLACTONE 50 MG TAB NGT SCH (08:30)
[2016-09-17] MEDS: POTASSIUM CHLORIDE 20 MEQ POWDER FOR ORAL SOLN NGT SCH ×2 (08:30→20:52)
[2016-09-17] MEDS: FERROUS SULFATE 60 MG/ML 5ML CUP NGT SCH (08:30)
[2016-09-17] MEDS: FOLIC ACID 1 MG TAB NGT SCH (08:30)
[2016-09-17] MEDS: THIAMINE 100 MG TAB NGT SCH (08:31)
[2016-09-17] MEDS: ASPIRIN 81 MG TAB NGT SCH (08:31)
[2016-09-17] MEDS: ACETAZOLAMIDE 250 MG TAB NGT SCH ×3 (08:31→20:52)
[2016-09-17] MEDS: AMIODARONE 200 MG TAB NGT SCH ×2 (08:31→20:46)
[2016-09-17] MEDS: FAMOTIDINE 20 MG TAB NGT SCH ×2 (08:31→20:52)
--- NOTE | 2016-09-17 09:13 | CONS ---
Date/Time of Note Date/Time of Note DATE: 09/17/16 TIME: 09:09 Assessment/Plan Assessment/Plan Additional Assessment/Plan Ventilator setting; AC of 20, tidal volume 550, PEEP of 5, 35% FiO2. Patient currently on propofol at 15 mics per kilogram per minute. Chest x-ray was reviewed from late yesterday afternoon which is showing marked improvement in extensive left lower lobe infiltrate. Assessment recommendations; 1. Patient admitted for hypercapnic and hypoxemic respiratory failure then developed respiratory failure requiring intubation because of extensive left lung atelectasis due to to left mainstem mucous plugging, however there is been marked radiological improvement since then. 2. Pneumonia. 3. Underlying obesity. 4. Likely underlying sleep apnea as well. Discontinue sedation. Patient's x-ray is markedly improved and the patient will be given another weaning trial from ventilator shortly. Patient likely will be extubated as well. Meanwhile continue current treatment. Next 35 minutes of critical care time was spent evaluating the patient. Consultation Date/Type/Reason Admit Date/Time Aug 30, 2016 at 23:34 Type of Consultation: Pulmonary/critical care 24 HR Interval Summary Free Text/Dictation Patient condition remains critical but stable. Patient is back on sedation as he could not tolerate weaning yesterday from ventilator. Has remained hemodynamically stable. General exam is; middle-aged male, on ventilator via endotracheal tube, sedated. Currently in no distress. Exam/Review of Systems Vital Signs Vitals Vital Signs Date Time Temp Pulse Resp B/P Pulse Ox O2 Delivery O2 Flow Rate FiO2 09/17/16 08:00 97 09/17/16 08:00 29 118/82 100 Mechanical Ventilator 09/17/16 07:30 98.7 09/17/16 07:04 35 Intake and Output 09/16/16 09/16/16 09/17/16 14:59 22:59 06:59 Intake Total 499.072 ml 455.144 ml 561.693 ml Output Total 450 ml 375 ml 400 ml Balance 49.072 ml 80.144 ml 161.693 ml Exam HEENT exam is; supple neck, no JVD. No lymphadenopathy. Midline trachea. No thyromegaly. Orally intubated. Patient has fair dentition. Pupils are small bilaterally. Chest exam; diminished but clear breath sound. S1-S2 audible, no murmurs. Regular rhythm. Abdomen examination; soft, protuberant. No organomegaly. Bowel sounds audible. Extremity exam; no peripheral edema. Pulses 1+ bilaterally. LARRY OPERATOR exam ; patient is sedated. Results Result Diagram: 09/17/16 0350 09/17/16 0350 Results 24 hrs Laboratory Tests Test 09/17/16 03:50 White Blood Count 9.2 Red Blood Count 4.33 L Hemoglobin 12.8 L Hematocrit 38.9 L Mean Corpuscular Volume 89.8 Mean Corpuscular Hemoglobin 29.6 Mean Corpuscular Hemoglobin Concent 32.9 Red Cell Distribution Width 14.8 H Platelet Count 135 L Mean Platelet Volume 11.1 H Neutrophils % 76.2 Lymphocytes % 11.9 L Monocytes % 6.7 Eosinophils % 4.1 Basophils % 0.7 Nucleated Red Blood Cells % 0.0 Neutrophils # 7.0 Lymphocytes # 1.1 Monocytes # 0.6 Eosinophils # 0.4 Basophils # 0.1 Nucleated Red Blood Cells # 0.0 Sodium Level 142 Potassium Level 3.4 L Chloride Level 112 H Carbon Dioxide Level 24 Anion Gap 9 Blood Urea Nitrogen 18 Creatinine 0.71 Glucose Level 98 Calcium Level 9.1 Phosphorus Level 3.9 Magnesium Level 1.7 Total Bilirubin 0.6 Direct Bilirubin 0.00 Indirect Bilirubin 0.6 Aspartate Amino Transf (AST/SGOT) 46 Alanine Aminotransferase (ALT/SGPT) 49 Alkaline Phosphatase 111 Ammonia 68 H Total Protein 6.6 Albumin 3.3 Globulin 3.30 H Albumin/Globulin Ratio 1.00 Medications Medications Current Medications Morphine Sulfate (morphine) 3 mg Q4H PRN IV PAIN; Start 08/31/16 at 01:00 Ondansetron HCl (Zofran Inj) 4 mg Q6H PRN IV NAUSEA AND/OR VOMITING; Start 02/06 at 02:00 Morphine Sulfate 2 mg 2 mg Q4H PRN IV PAIN LEVEL 7-10 Last administered on 09/14 09:45; Admin Dose 2 MG; Start 08/31/16 at 02:00 Propofol 100 ml @ 4.695 mls/ hr Q12H IV Last administered on 09/17/16 06:17; Admin Dose 14.085 MLS/HR; Start 09/07/16 at 13:30 Piperacillin Sod/ Tazobactam Sod (Zosyn 3.375gm/ 100 ml (Pmx)) 100 ml @ 200 mls /hr Q6 IVPB Last administered on 09/17/16 06:17; Admin Dose 200 MLS/HR; Start 09/07/16 at 16:00 Lactulose 20 gm 20 gm Q8 NGT Last administered on 09/17/16 06:16; Admin Dose 20 GM; Start 09/07/16 at 16:00 Norepinephrine/ Dextrose (Levophed/D5W) 500 ml @ 1.87 mls/hr TITRATE IV Last administered on 09/15/16 06:19; Admin Dose 1.87 MLS/HR; Start 09/07/16 at 17:00 Acetazolamide (Diamox) 250 mg TID NGT Last administered on 09/17/16 08:31; Admin Dose 250 MG; Start 09/08/16 at 21:00 IV Flush (NS 10 ml) 10 ml PRN PRN IV IV PROTOCOL; Start 09/08/16 at 17:00 Potassium Chloride (Potassium Chloride Pwd/Soln) 20 meq BID NGT Last administered on 09/17/16 08:30; Admin Dose 20 MEQ; Start 09/11/16 at 21:00 Aspirin (Aspirin) 81 mg DAILY NGT Last administered on 09/17/16 08:31; Admin Dose 81 MG; Start 09/12/16 at 09:00 Atorvastatin Calcium (Lipitor) 10 mg QHS NGT Last administered on 09/16/16 21: 13; Admin Dose 10 MG; Start 09/11/16 at 20:06 Digoxin (Digoxin) 0.125 mg DAILY@13 NGT Last administered on 09/16/16 13:08; Admin Dose 0.125 MG; Start 09/11/16 at 20:06 Famotidine (Pepcid) 20 mg BID NGT Last administered on 09/17/16 08:31; Admin Dose 20 MG; Start 09/11/16 at 20:06 Ferrous Sulfate (Feosol Liquid Cup) 300 mg DAILY NGT Last administered on 08:30; Admin Dose 300 MG; Start 09/12/16 at 09:00 Folic Acid (Folic Acid) 1 mg DAILY NGT Last administered on 09/17/16 08:30; Admin Dose 1 MG; Start 09/11/16 at 20:10 Losartan Potassium (Cozaar) 50 mg BID NGT ; Start 09/11/16 at 20:10; Status Future Hold Multivitamins Therapeutic (Theragran) 1 tab DAILY NGT Last administered on 09/17 08:30; Admin Dose 1 TAB; Start 09/11/16 at 20:11 Thiamine HCl (Vitamin B1) 100 mg DAILY NGT Last administered on 09/17/16 08:31 ; Admin Dose 100 MG; Start 09/11/16 at 20:11 Spironolactone (Aldactone) 50 mg DAILY NGT Last administered on 09/17/16 08:30 ; Admin Dose 50 MG; Start 09/12/16 at 09:00 Bisacodyl (Dulcolax Supp) 10 mg DAILY PRN [place] CONSTIPATION Last administered on 09/15/16 01:40; Admin Dose 10 MG; Start 09/14/16 at 09:00 Diltiazem HCl 60 mg 60 mg QID NGT Last administered on 09/17/16 08:30; Admin Dose 60 MG; Start 09/16/16 at 13:00 Phenylephrine HCl/ Dextrose (Jacinto-Syneph/D5W) 500 ml @ 75 mls/hr TITRATE IV ; Start 09/16/16 at 18:30 Amiodarone HCl (Cordarone) 200 mg BID NGT Last administered on 09/17/16 08:31 ; Admin Dose 200 MG; Start 09/16/16 at 21:00 ABIMAEL ZAIDI 30, 2017 09:12
[2016-09-17] MEDS: DIGOXIN 0.125 MG TAB NGT SCH (12:42)
[2016-09-17] MEDS: ATORVASTATIN 10 MG TAB NGT SCH (20:52)
[2016-09-18] VITALS (38 sets, daily range): BP systolic 95–139; BP diastolic 57–106; PULSE 50–99; RESP 19–25
[2016-09-18] MEDS: PIPER-TAZO 3.375 GM IV (PMX) 100 ML IVPB SCH ×4 (00:47→17:36)
[2016-09-18] MEDS: PROPOFOL 100 ML IV SCH ×4 (01:37→22:31)
[2016-09-18] MEDS: ALBUTEROL 18 GM INHALER INH SCH ×4 (01:46→19:10)
[2016-09-18] MEDS: IPRATROPIUM (HFA) 12.9 GM INHALER INH SCH ×4 (01:46→19:10)
[2016-09-18 04:49] LABS: ADD SCAN DIFF NO
[2016-09-18 04:52] LABS: BASOPHIL # 0.1 10^3/ul (0.0-0.1); BASOPHILS % 0.6 % (0.0-2.0); EOSINOPHILS # 0.4 10^3/ul (0.0-0.5); EOSINOPHILS % 5.1 % (0.0-7.0); HEMATOCRIT 36.6 % (42.0-52.0); HEMOGLOBIN 12.1 g/dl (14.0-18.0); LYMPHOCYTES % 10.9 % (15.0-51.0); MEAN CORPUSCULAR HGB CONC 33.1 g/dl (32.0-37.0); MEAN CORPUSCULAR VOLUME 90.6 fl (82.0-101.0); MONOCYTE # 0.6 10^3/ul (0.3-0.9); MONOCYTES % 6.3 % (0.0-11.0); NEUTROPHIL # 6.7 10^3/ul (1.6-7.5); NEUTROPHILS % 76.8 % (39.0-77.0); PLATELET COUNT 125 10^3/UL (140-415); RED BLOOD COUNT 4.04 10^6/ul (4.70-6.10); RED CELL DISTRIBUTION WIDTH 14.9 % (11.5-14.5); WHITE BLOOD COUNT 8.7 10^3/ul (4.8-10.8)
[2016-09-18 05:17] LABS: ALBUMIN 2.8 g/dl (3.3-4.9); ALBUMIN/GLOBULIN RATIO 0.84; BILIRUBIN,INDIRECT 0.6 mg/dl (0-1.1); BILIRUBIN,TOTAL 0.6 mg/dl (0.2-1.3); CALCIUM 9.2 mg/dl (8.4-10.2); CREATININE 0.59 mg/dl (0.61-1.24); POTASSIUM 3.7 mmol/L (3.5-5.1); TOTAL PROTEIN 6.1 g/dl (6.1-8.1)
[2016-09-18 05:22] LABS: MAGNESIUM 1.7 mg/dl (1.7-2.5)
[2016-09-18] MEDS: LACTULOSE 30ML CUP NGT SCH ×3 (06:54→22:31)
--- NOTE | 2016-09-18 07:43 | RADRPT ---
PROCEDURE: XR Chest. CLINICAL INDICATION: Pneumonia TECHNIQUE: An AP view of the chest was obtained. COMPARISON: Chest x-ray dated 09/16/2016 FINDINGS: The endotracheal tube tip is approximately 3.7 cm above the amber. The tip of the enteric tube ex tends below the left diaphragm. There is a right upper extremity PICC line with tip near the cavoatr ial junction. Lung volumes are low. There is prominence of the interstitial and central pulmonary vascular mell ngs with bibasilar interstitial opacities and small bilateral pleural effusions. No focal airspace opacification or pneumothorax is seen. The cardiomediastinal silhouette is moderately enlarged. Ca lcifications are seen within the aortic arch. The osseous structures demonstrate senescent changes. IMPRESSION: 1. Small bilateral pleural effusions with bibasilar atelectasis versus pneumonia. Overall, no sign ificant interval change. 2. Findings suggestive of pulmonary vascular congestion. No significant interval change. 3. Moderate cardiomegaly and aortic atherosclerosis. 4. Tubes and lines, as described above. RPTAT: HH .Geeta Escoto MD, MD Date Time Electronically viewed and signed by .Geeta Escoto MD, on 09/18/2016 07:42 .G/
--- NOTE | 2016-09-18 08:26 | CONS ---
Date/Time of Note Date/Time of Note DATE: 09/18/16 TIME: 08:23 Assessment/Plan Assessment/Plan Additional Assessment/Plan Ventilator setting; AC of 20, tidal volume 550, PEEP of 5, 35% FiO2. Patient currently on propofol at 15 mics per kilogram per minute. Chest x-ray was reviewed from today which is showing right lower lobe subsegmental atelectasis. Left lung hernandez are fairly clear. Endotracheal tube is at an adequate level. Assessment recommendations; 1. Patient admitted with hypoxemic and hypercapnic respiratory failure was doing fairly well on the medical floor then developed complete left lung atelectasis leading to respiratory failure requiring intubation. Chest x-ray is markedly improved. 2. Underlying morbid obesity. 3. Thrombocytopenia. 4. Chronic atrial fibrillation. Stop sedation again was the patient is off sedation he will be evaluated for possible weaning from ventilator. Meanwhile continue current treatment. Consultation Date/Type/Reason Admit Date/Time Aug 30, 2016 at 23:34 Type of Consultation: Pulmonary/critical care 24 HR Interval Summary Free Text/Dictation Patient condition is critical. Patient has failed multiple weaning trials from ventilator. Patient currently has been re-sedated. Has remained hemodynamically stable. However remains in chronic atrial fibrillation. General exam; middle-aged male, morbidly was, orally intubated, currently in no distress, sedated. Exam/Review of Systems Vital Signs Vitals Vital Signs Date Time Temp Pulse Resp B/P Pulse Ox O2 Delivery O2 Flow Rate FiO2 09/18/16 07:00 61 20 116/74 99 Mechanical Ventilator 09/18/16 05:33 35 09/18/16 04:00 98.6 Intake and Output 09/17/16 09/17/16 09/18/16 15:00 23:00 07:00 Intake Total 380.26 ml 659.850 ml 538.595 ml Output Total 282 ml 367 ml 402 ml Balance 98.26 ml 292.850 ml 136.595 ml Exam HEENT exam; supple neck, no JVD. No lymphadenopathy. Midline trachea. No thyromegaly. Orally intubated. Pupils are small bilaterally. Patient has fair dentition. Chest exam; diminished but clear breath sound. S1-S2 audible, no murmurs. Irregular rhythm. Abdomen exam; soft, nondistended. No organomegaly. Bowel sounds audible. Protuberant. Extremity exam; no peripheral edema. Pulses 2+ bilaterally. SHOWER DOORS AND PANELS FABRICATOR exam ; patient is sedated. Results Result Diagram: 09/18/16 0420 09/18/16 0420 Results 24 hrs Laboratory Tests Test 09/18/16 04:20 09/18/16 04:30 White Blood Count 8.7 Red Blood Count 4.04 L Hemoglobin 12.1 L Hematocrit 36.6 L Mean Corpuscular Volume 90.6 Mean Corpuscular Hemoglobin 30.0 Mean Corpuscular Hemoglobin Concent 33.1 Red Cell Distribution Width 14.9 H Platelet Count 125 L Mean Platelet Volume 11.0 H Neutrophils % 76.8 Lymphocytes % 10.9 L Monocytes % 6.3 Eosinophils % 5.1 Basophils % 0.6 Nucleated Red Blood Cells % 0.0 Neutrophils # 6.7 Lymphocytes # 1.0 Monocytes # 0.6 Eosinophils # 0.4 Basophils # 0.1 Nucleated Red Blood Cells # 0.0 Sodium Level 145 H Potassium Level 3.7 Chloride Level 115 H Carbon Dioxide Level 22 Anion Gap 12 Blood Urea Nitrogen 18 Creatinine 0.59 L Glucose Level 95 Calcium Level 9.2 Phosphorus Level 4.0 Magnesium Level 1.7 Total Bilirubin 0.6 Direct Bilirubin 0.00 Indirect Bilirubin 0.6 Aspartate Amino Transf (AST/SGOT) 46 Alanine Aminotransferase (ALT/SGPT) 45 Alkaline Phosphatase 100 Total Protein 6.1 Albumin 2.8 L Globulin 3.30 H Albumin/Globulin Ratio 0.84 Ammonia 61 H Medications Medications Current Medications Morphine Sulfate (morphine) 3 mg Q4H PRN IV PAIN; Start 08/31/16 at 01:00 Ondansetron HCl (Zofran Inj) 4 mg Q6H PRN IV NAUSEA AND/OR VOMITING; Start 02/06 at 02:00 Morphine Sulfate 2 mg 2 mg Q4H PRN IV PAIN LEVEL 7-10 Last administered on 09/14 09:45; Admin Dose 2 MG; Start 08/31/16 at 02:00 Propofol 100 ml @ 4.695 mls/ hr Q12H IV Last administered on 09/18/16 06:54; Admin Dose 14.085 MLS/HR; Start 09/07/16 at 13:30 Piperacillin Sod/ Tazobactam Sod (Zosyn 3.375gm/ 100 ml (Pmx)) 100 ml @ 200 mls /hr Q6 IVPB Last administered on 09/18/16 06:54; Admin Dose 200 MLS/HR; Start 09/07/16 at 16:00 Lactulose 20 gm 20 gm Q8 NGT Last administered on 09/18/16 06:54; Admin Dose 20 GM; Start 09/07/16 at 16:00 Norepinephrine/ Dextrose (Levophed/D5W) 500 ml @ 1.87 mls/hr TITRATE IV Last administered on 09/15/16 06:19; Admin Dose 1.87 MLS/HR; Start 09/07/16 at 17:00 Acetazolamide (Diamox) 250 mg TID NGT Last administered on 09/17/16 20:52; Admin Dose 250 MG; Start 09/08/16 at 21:00 IV Flush (NS 10 ml) 10 ml PRN PRN IV IV PROTOCOL; Start 09/08/16 at 17:00 Potassium Chloride (Potassium Chloride Pwd/Soln) 20 meq BID NGT Last administered on 09/17/16 20:52; Admin Dose 20 MEQ; Start 09/11/16 at 21:00 Aspirin (Aspirin) 81 mg DAILY NGT Last administered on 09/17/16 08:31; Admin Dose 81 MG; Start 09/12/16 at 09:00 Atorvastatin Calcium (Lipitor) 10 mg QHS NGT Last administered on 09/17/16 20: 52; Admin Dose 10 MG; Start 09/11/16 at 20:06 Digoxin (Digoxin) 0.125 mg DAILY@13 NGT Last administered on 09/17/16 12:42; Admin Dose 0.125 MG; Start 09/11/16 at 20:06 Famotidine (Pepcid) 20 mg BID NGT Last administered on 09/17/16 20:52; Admin Dose 20 MG; Start 09/11/16 at 20:06 Ferrous Sulfate (Feosol Liquid Cup) 300 mg DAILY NGT Last administered on 08:30; Admin Dose 300 MG; Start 09/12/16 at 09:00 Folic Acid (Folic Acid) 1 mg DAILY NGT Last administered on 09/17/16 08:30; Admin Dose 1 MG; Start 09/11/16 at 20:10 Losartan Potassium (Cozaar) 50 mg BID NGT ; Start 09/11/16 at 20:10; Status Future Hold Multivitamins Therapeutic (Theragran) 1 tab DAILY NGT Last administered on 09/17 08:30; Admin Dose 1 TAB; Start 09/11/16 at 20:11 Thiamine HCl (Vitamin B1) 100 mg DAILY NGT Last administered on 09/17/16 08:31 ; Admin Dose 100 MG; Start 09/11/16 at 20:11 Spironolactone (Aldactone) 50 mg DAILY NGT Last administered on 09/17/16 08:30 ; Admin Dose 50 MG; Start 09/12/16 at 09:00 Bisacodyl (Dulcolax Supp) 10 mg DAILY PRN [place] CONSTIPATION Last administered on 09/15/16 01:40; Admin Dose 10 MG; Start 09/14/16 at 09:00 Diltiazem HCl 60 mg 60 mg QID NGT Last administered on 09/17/16 16:59; Admin Dose 60 MG; Start 09/16/16 at 13:00 Phenylephrine HCl/ Dextrose (Jacinto-Syneph/D5W) 500 ml @ 75 mls/hr TITRATE IV ; Start 09/16/16 at 18:30 Amiodarone HCl (Cordarone) 200 mg BID NGT Last administered on 09/17/16 08:31 ; Admin Dose 200 MG; Start 09/16/16 at 21:00 ABIMAEL ZAIDI Sep 18, 2016 08:26
[2016-09-18] MEDS: AMIODARONE 200 MG TAB NGT SCH ×2 (09:00→20:49)
[2016-09-18] MEDS: DILTIAZEM 60 MG TAB NGT SCH ×4 (09:00→20:48)
--- NOTE | 2016-09-18 09:06 | PN ---
Date/Time of Note Date/Time of Note DATE: 09/18/16 TIME: 09:02 Assessment/Plan VTE Prophylaxis VTE Prophylaxis Intervention: SCD's Lines/Catheters IV [facility]): PICC Line Central line still needed: Yes Urinary Cath still in place: Yes Reason Cath still needed: other (indicate) Assessment/Plan Chief Complaint/Hosp Course 1. Chest pain. Acute coronary syndrome ruled out. Troponins negative. The patient's 2D echocardiogram showing ejection fraction of 55%. The patient will be continued on aspirin. 2. Essential hypertension. Currently hypotensive. Status post pressors. Resume antihypertensives as the blood pressure allows. 3. Chronic obstructive pulmonary disease. The patient on inhaled bronchodilators. Pulmonology following. 4. Acute respiratory failure. Acute on chronic. Hypoxic and hypercapnic. Got intubated on 09/07/2016 because of worsening respiratory distress. Ventilator management as per Pulmonary. 5. Atrial fibrillation. Rate controlled. Unable to anticoagulate because of underlying thrombocytopenia. 6. Alcoholic liver disease. Continue diuretics. The patient will also be continued on lactulose because of underlying hyperammonemia. 7. Thrombocytopenia. Most probably from acute alcoholic liver disease. Monitor for any bleeding. 8. Hyponatremia. Resolved. S/P 1 dose of vasopressin antagonist on 2016. 9. Alcohol abuse. The patient's last drink was on the day prior to hospitalization. The patient will be maintained on daily thiamine. Status post Librium taper. 10. Possible aspiration with aspiration pneumonia. The patient on empiric antibiotics including coverage for anaerobes. 11. Acute on chronic CHF exacerbation. Diastolic dysfunction. Continue diuretics if blood pressure allows. 12. Fluid, electrolytes and nutrition. NG tube feedings. 13. Deep venous thrombosis prophylaxis. B/L SCDs. 14. Gastrointestinal prophylaxis. H2 receptor blockers. 15. Plan. Continue ICU monitoring. Careful diuresis.Continue lactulose. Ventilator weaning as per Pulmonary. Reconsult cardiology because of pauses last night and for management of cardiac medications. Case discussed with Dr. Hoffmann. Had a long conversation with the patient's mother with the help of a component prep operator regarding the patient's prognosis. The patient's mother was explained about the need for a tracheostomy if unable to wean the patient off the ventilator. Later, the patient's ex- was present in the patient's room. Talked to the patient's ex- in the presence of the patient's mother after getting consent to talk to the patient's ex- from the mother. Patient 's ex- was informed about the necessity for a tracheostomy and PEG tube placement if unable to wean the patient off the ventilator. The patient's mom and ex- verbalized understanding, and they agreed for proceeding with a tracheostomy and PEG tube placement if necessary. Critical care time: 45 minutes. Problems: Subjective 24 Hr Interval Summary Free Text/Dictation The patient continues to be on mechanical ventilator. Exam/Review of Systems Vital Signs Vitals Vital Signs Date Time Temp Pulse Resp B/P Pulse Ox O2 Delivery O2 Flow Rate FiO2 09/18/16 07:00 61 20 116/74 99 Mechanical Ventilator 09/18/16 05:33 35 09/18/16 04:00 98.6 Intake and Output 09/17/16 09/17/16 09/18/16 15:00 23:00 07:00 Intake Total 380.26 ml 659.850 ml 538.595 ml Output Total 282 ml 367 ml 402 ml Balance 98.26 ml 292.850 ml 136.595 ml Exam GENERAL: This is a morbidly obese male patient lying in orally intubated. HEENT: Head normocephalic and atraumatic. Eyes: Anicteric sclerae. Conjunctivae clear. ENT: Nasal septum is midline. NGT in place. Oral mucosa is dry.Orally intubated. NECK: Short with increased neck circumference. RESPIRATORY: Bilaterally diminished breath sounds. Orally intubated. On AC mode ventilation. CARDIAC: Irregularly irregular rhythm. S1 and S2 heard. ABDOMEN: Obese. Bowel sounds hypoactive. GENITOURINARY: Deferred. EXTREMITIES: No cyanosis, no clubbing. Bilateral lower extremity 1+ pitting edema. Peripheral pulses are palpable. NEUROLOGIC: The patient is sedated. Results Result Diagram: 09/18/16 0420 09/18/16 0420 Results 24 hrs Laboratory Tests Test 09/18/16 04:20 09/18/16 04:30 White Blood Count 8.7 Red Blood Count 4.04 L Hemoglobin 12.1 L Hematocrit 36.6 L Mean Corpuscular Volume 90.6 Mean Corpuscular Hemoglobin 30.0 Mean Corpuscular Hemoglobin Concent 33.1 Red Cell Distribution Width 14.9 H Platelet Count 125 L Mean Platelet Volume 11.0 H Neutrophils % 76.8 Lymphocytes % 10.9 L Monocytes % 6.3 Eosinophils % 5.1 Basophils % 0.6 Nucleated Red Blood Cells % 0.0 Neutrophils # 6.7 Lymphocytes # 1.0 Monocytes # 0.6 Eosinophils # 0.4 Basophils # 0.1 Nucleated Red Blood Cells # 0.0 Sodium Level 145 H Potassium Level 3.7 Chloride Level 115 H Carbon Dioxide Level 22 Anion Gap 12 Blood Urea Nitrogen 18 Creatinine 0.59 L Glucose Level 95 Calcium Level 9.2 Phosphorus Level 4.0 Magnesium Level 1.7 Total Bilirubin 0.6 Direct Bilirubin 0.00 Indirect Bilirubin 0.6 Aspartate Amino Transf (AST/SGOT) 46 Alanine Aminotransferase (ALT/SGPT) 45 Alkaline Phosphatase 100 Total Protein 6.1 Albumin 2.8 L Globulin 3.30 H Albumin/Globulin Ratio 0.84 Ammonia 61 H Medications Medications Current Medications Morphine Sulfate (morphine) 3 mg Q4H PRN IV PAIN; Start 08/31/16 at 01:00 Ondansetron HCl (Zofran Inj) 4 mg Q6H PRN IV NAUSEA AND/OR VOMITING; Start 02/06 at 02:00 Morphine Sulfate 2 mg 2 mg Q4H PRN IV PAIN LEVEL 7-10 Last administered on 09/14 09:45; Admin Dose 2 MG; Start 08/31/16 at 02:00 Propofol 100 ml @ 4.695 mls/ hr Q12H IV Last administered on 09/18/16 06:54; Admin Dose 14.085 MLS/HR; Start 09/07/16 at 13:30 Piperacillin Sod/ Tazobactam Sod (Zosyn 3.375gm/ 100 ml (Pmx)) 100 ml @ 200 mls /hr Q6 IVPB Last administered on 09/18/16 06:54; Admin Dose 200 MLS/HR; Start 09/07/16 at 16:00 Lactulose 20 gm 20 gm Q8 NGT Last administered on 09/18/16 06:54; Admin Dose 20 GM; Start 09/07/16 at 16:00 Norepinephrine/ Dextrose (Levophed/D5W) 500 ml @ 1.87 mls/hr TITRATE IV Last administered on 09/15/16 06:19; Admin Dose 1.87 MLS/HR; Start 09/07/16 at 17:00 Acetazolamide (Diamox) 250 mg TID NGT Last administered on 09/17/16 20:52; Admin Dose 250 MG; Start 09/08/16 at 21:00 IV Flush (NS 10 ml) 10 ml PRN PRN IV IV PROTOCOL; Start 09/08/16 at 17:00 Potassium Chloride (Potassium Chloride Pwd/Soln) 20 meq BID NGT Last administered on 09/17/16 20:52; Admin Dose 20 MEQ; Start 09/11/16 at 21:00 Aspirin (Aspirin) 81 mg DAILY NGT Last administered on 09/17/16 08:31; Admin Dose 81 MG; Start 09/12/16 at 09:00 Atorvastatin Calcium (Lipitor) 10 mg QHS NGT Last administered on 09/17/16 20: 52; Admin Dose 10 MG; Start 09/11/16 at 20:06 Digoxin (Digoxin) 0.125 mg DAILY@13 NGT Last administered on 09/17/16 12:42; Admin Dose 0.125 MG; Start 09/11/16 at 20:06 Famotidine (Pepcid) 20 mg BID NGT Last administered on 09/17/16 20:52; Admin Dose 20 MG; Start 09/11/16 at 20:06 Ferrous Sulfate (Feosol Liquid Cup) 300 mg DAILY NGT Last administered on 08:30; Admin Dose 300 MG; Start 09/12/16 at 09:00 Folic Acid (Folic Acid) 1 mg DAILY NGT Last administered on 09/17/16 08:30; Admin Dose 1 MG; Start 09/11/16 at 20:10 Losartan Potassium (Cozaar) 50 mg BID NGT ; Start 09/11/16 at 20:10; Status Future Hold Multivitamins Therapeutic (Theragran) 1 tab DAILY NGT Last administered on 09/17 08:30; Admin Dose 1 TAB; Start 09/11/16 at 20:11 Thiamine HCl (Vitamin B1) 100 mg DAILY NGT Last administered on 09/17/16 08:31 ; Admin Dose 100 MG; Start 09/11/16 at 20:11 Spironolactone (Aldactone) 50 mg DAILY NGT Last administered on 09/17/16 08:30 ; Admin Dose 50 MG; Start 09/12/16 at 09:00 Bisacodyl (Dulcolax Supp) 10 mg DAILY PRN [place] CONSTIPATION Last administered on 09/15/16 01:40; Admin Dose 10 MG; Start 09/14/16 at 09:00 Diltiazem HCl 60 mg 60 mg QID NGT Last administered on 09/17/16 16:59; Admin Dose 60 MG; Start 09/16/16 at 13:00 Phenylephrine HCl/ Dextrose (Jacinto-Syneph/D5W) 500 ml @ 75 mls/hr TITRATE IV ; Start 09/16/16 at 18:30 Amiodarone HCl (Cordarone) 200 mg BID NGT Last administered on 09/17/16 08:31 ; Admin Dose 200 MG; Start 09/16/16 at 21:00 TRUDY HILTON NP Sep 18, 2016 09:06
[2016-09-18] MEDS: SPIRONOLACTONE 50 MG TAB NGT SCH (09:42)
[2016-09-18] MEDS: ASPIRIN 81 MG TAB NGT SCH (09:42)
[2016-09-18] MEDS: ACETAZOLAMIDE 250 MG TAB NGT SCH ×3 (09:43→20:48)
[2016-09-18] MEDS: FERROUS SULFATE 60 MG/ML 5ML CUP NGT SCH (09:44)
[2016-09-18] MEDS: FAMOTIDINE 20 MG TAB NGT SCH ×2 (09:45→20:47)
[2016-09-18] MEDS: FOLIC ACID 1 MG TAB NGT SCH (09:45)
[2016-09-18] MEDS: POTASSIUM CHLORIDE 20 MEQ POWDER FOR ORAL SOLN NGT SCH ×2 (09:45→20:47)
[2016-09-18] MEDS: MULTIVITAMINS THERAPEUTIC TAB NGT SCH (09:46)
[2016-09-18] MEDS: THIAMINE 100 MG TAB NGT SCH (09:46)
[2016-09-18] MEDS: DIGOXIN 0.125 MG TAB NGT SCH (13:30)
[2016-09-18] MEDS: ATORVASTATIN 10 MG TAB NGT SCH (20:48)
[2016-09-19] VITALS (39 sets, daily range): BP systolic 85–157; BP diastolic 56–103; PULSE 62–117; RESP 18–29
[2016-09-19] MEDS: PIPER-TAZO 3.375 GM IV (PMX) 100 ML IVPB SCH ×4 (00:13→17:27)
[2016-09-19] MEDS: IPRATROPIUM (HFA) 12.9 GM INHALER INH SCH ×4 (01:17→19:06)
[2016-09-19 05:13] LABS: BASOPHILS % 0.5 % (0.0-2.0); EOSINOPHILS # 0.4 10^3/ul (0.0-0.5); EOSINOPHILS % 5.1 % (0.0-7.0); HEMATOCRIT 35.7 % (42.0-52.0); HEMOGLOBIN 11.9 g/dl (14.0-18.0); LYMPHOCYTES # 1.2 10^3/ul (0.8-2.9); LYMPHOCYTES % 14.5 % (15.0-51.0); MEAN CORPUSCULAR HEMOGLOBIN 29.7 pg (29.0-33.0); MEAN CORPUSCULAR HGB CONC 33.3 g/dl (32.0-37.0); MEAN PLATELET VOLUME 11.6 fl (7.4-10.4); MONOCYTE # 0.5 10^3/ul (0.3-0.9); MONOCYTES % 6.6 % (0.0-11.0); NEUTROPHIL # 5.9 10^3/ul (1.6-7.5); NEUTROPHILS % 73.1 % (39.0-77.0); PLATELET COUNT 127 10^3/UL (140-415); RED BLOOD COUNT 4.01 10^6/ul (4.70-6.10); RED CELL DISTRIBUTION WIDTH 14.8 % (11.5-14.5)
[2016-09-19] MEDS: LACTULOSE 30ML CUP NGT SCH ×3 (05:46→17:27)
[2016-09-19 05:49] LABS: ALBUMIN 2.8 g/dl (3.3-4.9); ALBUMIN/GLOBULIN RATIO 0.93; BILIRUBIN,INDIRECT 0.5 mg/dl (0-1.1); BILIRUBIN,TOTAL 0.5 mg/dl (0.2-1.3); CALCIUM 8.8 mg/dl (8.4-10.2); CREATININE 0.68 mg/dl (0.61-1.24); POTASSIUM 3.5 mmol/L (3.5-5.1); TOTAL PROTEIN 5.8 g/dl (6.1-8.1)
[2016-09-19 05:54] LABS: MAGNESIUM 1.7 mg/dl (1.7-2.5); PHOSPHORUS 4.2 mg/dl (2.5-4.9)
[2016-09-19 07:15] LABS: ADD SCAN DIFF NO
--- NOTE | 2016-09-19 07:39 | CONS ---
Date/Time of Note Date/Time of Note DATE: 09/19/16 TIME: 07:35 Assessment/Plan Assessment/Plan Additional Assessment/Plan Ventilator setting; AC of 20, tidal volume 550, PEEP of 5, 35% FiO2. Chest x-ray from today is pending. Assessment and recommendations; 1. Patient admitted for hypoxemic and hypercapnic respiratory failure due to underlying obesity/hypoventilation syndrome, then developed extensive left lung atelectasis leading to respiratory failure requiring intubation with marked post intubation improvement in chest x-ray. However persistent mild basilar infiltrates/atelectatic changes are present. 2. Chronic atrial fibrillation. Hold sedation. Obtain a stat chest x-ray. Once x-ray is done I will reevaluate the patient regarding any possibility of weaning from ventilator. Meanwhile continue current treatment. Consultation Date/Type/Reason Admit Date/Time Aug 30, 2016 at 23:34 Type of Consultation: Pulmonary/critical care 24 HR Interval Summary Free Text/Dictation Patient,s condition remains critical. Patient has failed multiple weaning trials due to ensuing tachypnea on CPAP mode. Patient however has remained hemodynamically stable, remains in stable atrial fibrillation. General exam; middle-aged male, morbidly obese, orally intubated, sedated, currently in no distress. Exam/Review of Systems Vital Signs Vitals Vital Signs Date Time Temp Pulse Resp B/P Pulse Ox O2 Delivery O2 Flow Rate FiO2 09/19/16 07:00 62 20 103/66 96 Mechanical Ventilator 09/19/16 05:00 35 09/19/16 04:00 98.2 Intake and Output 09/18/16 09/18/16 09/19/16 15:00 23:00 07:00 Intake Total 350 ml 576.855 ml 740.192 ml Output Total 440 ml 390 ml 450 ml Balance -90 ml 186.855 ml 290.192 ml Exam HEENT exam; supple neck, no JVD. No lymphadenopathy. Midline trachea. No thyromegaly. Orally intubated. Patient has fair dentition. Pupils are small bilaterally. Chest exam; diminished but clear breath sounds. S1-S2 audible, no murmurs. Regular rhythm. Abdomen exam; soft, protuberant. No organomegaly. Bowel sounds audible. Extremity exam; trace peripheral edema. Pulses 1+ bilaterally. No clubbing. [employer] exam; patient is sedated. Results Result Diagram: 09/19/160 09/19/16419 Results 24 hrs Laboratory Tests Test 09/19/16 04:20 White Blood Count 8.0 Red Blood Count 4.01 L Hemoglobin 11.9 L Hematocrit 35.7 L Mean Corpuscular Volume 89.0 Mean Corpuscular Hemoglobin 29.7 Mean Corpuscular Hemoglobin Concent 33.3 Red Cell Distribution Width 14.8 H Platelet Count 127 L Mean Platelet Volume 11.6 H Neutrophils % 73.1 Lymphocytes % 14.5 L Monocytes % 6.6 Eosinophils % 5.1 Basophils % 0.5 Nucleated Red Blood Cells % 0.0 Neutrophils # 5.9 Lymphocytes # 1.2 Monocytes # 0.5 Eosinophils # 0.4 Basophils # 0.0 Nucleated Red Blood Cells # 0.0 Sodium Level 142 Potassium Level 3.5 Chloride Level 112 H Carbon Dioxide Level 24 Anion Gap 10 Blood Urea Nitrogen 17 Creatinine 0.68 Glucose Level 87 Calcium Level 8.8 Phosphorus Level 4.2 Magnesium Level 1.7 Total Bilirubin 0.5 Direct Bilirubin 0.00 Indirect Bilirubin 0.5 Aspartate Amino Transf (AST/SGOT) 35 Alanine Aminotransferase (ALT/SGPT) 42 Alkaline Phosphatase 98 Ammonia 91 H Total Protein 5.8 L Albumin 2.8 L Globulin 3.00 Albumin/Globulin Ratio 0.93 Medications Medications Current Medications Morphine Sulfate (morphine) 3 mg Q4H PRN IV PAIN; Start 08/31/16 at 01:00 Ondansetron HCl (Zofran Inj) 4 mg Q6H PRN IV NAUSEA AND/OR VOMITING Last administered on 09/18/16 12:37; Admin Dose 4 MG; Start 08/31/16 at 02:00 Morphine Sulfate 2 mg 2 mg Q4H PRN IV PAIN LEVEL 7-10 Last administered on 09/14 09:45; Admin Dose 2 MG; Start 08/31/16 at 02:00 Propofol 100 ml @ 4.695 mls/ hr Q12H IV Last administered on 09/18/16 22:31; Admin Dose 14.123 MLS/HR; Start 09/07/16 at 13:30 Piperacillin Sod/ Tazobactam Sod (Zosyn 3.375gm/ 100 ml (Pmx)) 100 ml @ 200 mls /hr Q6 IVPB Last administered on 09/19/16 05:46; Admin Dose 200 MLS/HR; Start 09/07/16 at 16:00 Lactulose 20 gm 20 gm Q8 NGT Last administered on 09/19/16 05:46; Admin Dose 20 GM; Start 09/07/16 at 16:00 Norepinephrine/ Dextrose (Levophed/D5W) 500 ml @ 1.87 mls/hr TITRATE IV Last administered on 09/15/16 06:19; Admin Dose 1.87 MLS/HR; Start 09/07/16 at 17:00 Acetazolamide (Diamox) 250 mg TID NGT Last administered on 09/18/16 20:48; Admin Dose 250 MG; Start 09/08/16 at 21:00 IV Flush (NS 10 ml) 10 ml PRN PRN IV IV PROTOCOL; Start 09/08/16 at 17:00 Potassium Chloride (Potassium Chloride Pwd/Soln) 20 meq BID NGT Last administered on 09/18/16 20:47; Admin Dose 20 MEQ; Start 09/11/16 at 21:00 Aspirin (Aspirin) 81 mg DAILY NGT Last administered on 09/18/16 09:42; Admin Dose 81 MG; Start 09/12/16 at 09:00 Atorvastatin Calcium (Lipitor) 10 mg QHS NGT Last administered on 09/18/16 20: 48; Admin Dose 10 MG; Start 09/11/16 at 20:06 Digoxin (Digoxin) 0.125 mg DAILY@13 NGT Last administered on 09/18/16 13:30; Admin Dose 0.125 MG; Start 09/11/16 at 20:06 Famotidine (Pepcid) 20 mg BID NGT Last administered on 09/18/16 20:47; Admin Dose 20 MG; Start 09/11/16 at 20:06 Ferrous Sulfate (Feosol Liquid Cup) 300 mg DAILY NGT Last administered on 09:44; Admin Dose 300 MG; Start 09/12/16 at 09:00 Folic Acid (Folic Acid) 1 mg DAILY NGT Last administered on 09/18/16 09:45; Admin Dose 1 MG; Start 09/11/16 at 20:10 Losartan Potassium (Cozaar) 50 mg BID NGT ; Start 09/11/16 at 20:10; Status Future Hold Multivitamins Therapeutic (Theragran) 1 tab DAILY NGT Last administered on 09/18 09:46; Admin Dose 1 TAB; Start 09/11/16 at 20:11 Thiamine HCl (Vitamin B1) 100 mg DAILY NGT Last administered on 09/18/16 09:46 ; Admin Dose 100 MG; Start 09/11/16 at 20:11 Spironolactone (Aldactone) 50 mg DAILY NGT Last administered on 09/18/16 09:42 ; Admin Dose 50 MG; Start 09/12/16 at 09:00 Bisacodyl (Dulcolax Supp) 10 mg DAILY PRN [place] CONSTIPATION Last administered on 09/15/16 01:40; Admin Dose 10 MG; Start 09/14/16 at 09:00 Diltiazem HCl 60 mg 60 mg QID NGT Last administered on 09/18/16 20:48; Admin Dose 60 MG; Start 09/16/16 at 13:00 Phenylephrine HCl/ Dextrose (Jacinto-Syneph/D5W) 500 ml @ 75 mls/hr TITRATE IV ; Start 09/16/16 at 18:30 Amiodarone HCl (Cordarone) 200 mg BID NGT Last administered on 09/18/16 20:49 ; Admin Dose 200 MG; Start 09/16/16 at 21:00 ABIMAEL ZAIDI Sep 19, 2016 07:39
[2016-09-19] MEDS: ALBUTEROL 18 GM INHALER INH SCH ×3 (08:00→19:05)
--- NOTE | 2016-09-19 09:29 | RADRPT ---
PROCEDURE: XR Chest 1 view. CLINICAL INDICATION: Shortness of breath TECHNIQUE: AP views of the chest was obtained. COMPARISON: Yesterday FINDINGS: The heart is large. Calcified atherosclerosis is noted in the aorta. Endotracheal tube is stable. Nasogastric tube is not well visualized below the distal thoracic esophagus. Central pulmonary vasc ular congestion and interstitial prominence in both lungs is unchanged. Retrocardiac opacity is sta ble. Right lower lung infiltrates, combined small to moderate pleural effusion are stable. Right-s ided PICC line is unchanged. The osseous structures are unchanged. IMPRESSION: Cardiomegaly with calcified atherosclerosis in the aorta. Nasogastric tube not well visualized below the distal thoracic esophagus. If there is concern for a nasogastric tube placement repeat exam or characterization with an abdominal film should be conside red. Stable central pulmonary vascular congestion and interstitial prominence in both lungs. Stable retrocardiac opacity that may reflect left lower lobe atelectasis or infiltrate combined with small pleural effusion. Stable right lower lung infiltrates, combined with small pleural effusion. RPTAT: AA .Philipp Becerra MD, Date Time Electronically viewed and signed by .Philipp Becerra MD, on 09/19/2016 09:29 .P/
[2016-09-19] MEDS ORDERED: MAGNESIUM SULFATE 2 GM/50 ML 50 ML IVPB ONE (09:30)
--- NOTE | 2016-09-19 09:34 | PN ---
Date/Time of Note Date/Time of Note DATE: 09/19/16 TIME: 09:33 Assessment/Plan VTE Prophylaxis VTE Prophylaxis Intervention: SCD's Lines/Catheters [facility] P[facility] Line Central line still needed: Yes Urinary Cath still in place: Yes Reason Cath still needed: other (indicate) Assessment/Plan Chief Complaint/Hosp Course 1. Chest pain. Acute coronary syndrome ruled out. Troponins negative. The patient's 2D echocardiogram showing ejection fraction of 55%. The patient will be continued on aspirin. 2. Essential hypertension. Currently hypotensive. Status post pressors. Resume antihypertensives as the blood pressure allows. 3. Chronic obstructive pulmonary disease. The patient on inhaled bronchodilators. Pulmonology following. 4. Acute respiratory failure. Acute on chronic. Hypoxic and hypercapnic. Got intubated on 09/07/2016 because of worsening respiratory distress. Ventilator management as per Pulmonary. 5. Atrial fibrillation. Rate controlled. Unable to anticoagulate because of underlying thrombocytopenia. 6. Alcoholic liver disease. Continue diuretics. The patient will also be continued on lactulose because of underlying hyperammonemia. 7. Thrombocytopenia. Most probably from acute alcoholic liver disease. Monitor for any bleeding. 8. Hyponatremia. Resolved. S/P 1 dose of vasopressin antagonist on 2016. 9. Alcohol abuse. The patient's last drink was on the day prior to hospitalization. The patient will be maintained on daily thiamine. Status post Librium taper. 10. Possible aspiration with aspiration pneumonia. The patient on empiric antibiotics including coverage for anaerobes. 11. Acute on chronic CHF exacerbation. Diastolic dysfunction. Continue diuretics if blood pressure allows. 12. Fluid, electrolytes and nutrition. NG tube feedings. 13. Deep venous thrombosis prophylaxis. B/L SCDs. 14. Gastrointestinal prophylaxis. H2 receptor blockers. 15. Plan. Continue ICU monitoring. Careful diuresis. Increase the dose of lactulose. Ventilator weaning as per Pulmonary. Case discussed with Dr. Hoffmann. On 09/18/2016, had a long conversation with the patient's mother with the help of a hr intern regarding the patient's prognosis. The patient's mother was explained about the need for a tracheostomy if unable to wean the patient off the ventilator. Later, the patient's ex- was present in the patient's room. Talked to the patient's ex- in the presence of the patient 's mother after getting consent to talk to the patient's ex- from the mother. Patient's ex- was informed about the necessity for a tracheostomy and PEG tube placement if unable to wean the patient off the ventilator. The patient's mom and ex- verbalized understanding, and they agreed for proceeding with a tracheostomy and PEG tube placement if necessary. Critical care time: 35 minutes. Problems: Subjective 24 Hr Interval Summary Free Text/Dictation Remains intubated. Exam/Review of Systems Vital Signs Vitals Vital Signs Date Time Temp Pulse Resp B/P Pulse Ox O2 Delivery O2 Flow Rate FiO2 09/19/16 08:00 66 09/19/16 07:00 20 103/66 96 Mechanical Ventilator 09/19/16 05:00 35 09/19/16 04:00 98.2 Intake and Output 09/18/16 09/18/16 09/19/16 15:00 23:00 07:00 Intake Total 350 ml 576.855 ml 740.192 ml Output Total 440 ml 390 ml 450 ml Balance -90 ml 186.855 ml 290.192 ml Exam GENERAL: This is a morbidly obese male patient lying in orally intubated. HEENT: Head normocephalic and atraumatic. Eyes: Anicteric sclerae. Conjunctivae clear. ENT: Nasal septum is midline. NGT in place. Oral mucosa is dry.Orally intubated. NECK: Short with increased neck circumference. RESPIRATORY: Bilaterally diminished breath sounds. Orally intubated. On AC mode ventilation. CARDIAC: Irregularly irregular rhythm. S1 and S2 heard. ABDOMEN: Obese. Bowel sounds hypoactive. GENITOURINARY: Deferred. EXTREMITIES: No cyanosis, no clubbing. Bilateral lower extremity 1+ pitting edema. Peripheral pulses are palpable. NEUROLOGIC: The patient is sedated. Results Result Diagram: 09/19/16 0420 09/19/16 0420 Results 24 hrs Laboratory Tests Test 09/19/16 04:20 White Blood Count 8.0 Red Blood Count 4.01 L Hemoglobin 11.9 L Hematocrit 35.7 L Mean Corpuscular Volume 89.0 Mean Corpuscular Hemoglobin 29.7 Mean Corpuscular Hemoglobin Concent 33.3 Red Cell Distribution Width 14.8 H Platelet Count 127 L Mean Platelet Volume 11.6 H Neutrophils % 73.1 Lymphocytes % 14.5 L Monocytes % 6.6 Eosinophils % 5.1 Basophils % 0.5 Nucleated Red Blood Cells % 0.0 Neutrophils # 5.9 Lymphocytes # 1.2 Monocytes # 0.5 Eosinophils # 0.4 Basophils # 0.0 Nucleated Red Blood Cells # 0.0 Sodium Level 142 Potassium Level 3.5 Chloride Level 112 H Carbon Dioxide Level 24 Anion Gap 10 Blood Urea Nitrogen 17 Creatinine 0.68 Glucose Level 87 Calcium Level 8.8 Phosphorus Level 4.2 Magnesium Level 1.7 Total Bilirubin 0.5 Direct Bilirubin 0.00 Indirect Bilirubin 0.5 Aspartate Amino Transf (AST/SGOT) 35 Alanine Aminotransferase (ALT/SGPT) 42 Alkaline Phosphatase 98 Ammonia 91 H Total Protein 5.8 L Albumin 2.8 L Globulin 3.00 Albumin/Globulin Ratio 0.93 Medications Medications Current Medications Morphine Sulfate (morphine) 3 mg Q4H PRN IV PAIN; Start 08/31/16 at 01:00 Ondansetron HCl (Zofran Inj) 4 mg Q6H PRN IV NAUSEA AND/OR VOMITING Last administered on 09/18/16 12:37; Admin Dose 4 MG; Start 08/31/16 at 02:00 Morphine Sulfate 2 mg 2 mg Q4H PRN IV PAIN LEVEL 7-10 Last administered on 09/14 09:45; Admin Dose 2 MG; Start 08/31/16 at 02:00 Propofol 100 ml @ 4.695 mls/ hr Q12H IV Last administered on 09/18/16 22:31; Admin Dose 14.123 MLS/HR; Start 09/07/16 at 13:30 Piperacillin Sod/ Tazobactam Sod (Zosyn 3.375gm/ 100 ml (Pmx)) 100 ml @ 200 mls /hr Q6 IVPB Last administered on 09/19/16 05:46; Admin Dose 200 MLS/HR; Start 09/07/16 at 16:00 Lactulose 20 gm 20 gm Q8 NGT Last administered on 09/19/16 05:46; Admin Dose 20 GM; Start 09/07/16 at 16:00 Norepinephrine/ Dextrose (Levophed/D5W) 500 ml @ 1.87 mls/hr TITRATE IV Last administered on 09/15/16 06:19; Admin Dose 1.87 MLS/HR; Start 09/07/16 at 17:00 Acetazolamide (Diamox) 250 mg TID NGT Last administered on 09/18/16 20:48; Admin Dose 250 MG; Start 09/08/16 at 21:00 IV Flush (NS 10 ml) 10 ml PRN PRN IV IV PROTOCOL; Start 09/08/16 at 17:00 Potassium Chloride (Potassium Chloride Pwd/Soln) 20 meq BID NGT Last administered on 09/18/16 20:47; Admin Dose 20 MEQ; Start 09/11/16 at 21:00 Aspirin (Aspirin) 81 mg DAILY NGT Last administered on 09/18/16 09:42; Admin Dose 81 MG; Start 09/12/16 at 09:00 Atorvastatin Calcium (Lipitor) 10 mg QHS NGT Last administered on 09/18/16 20: 48; Admin Dose 10 MG; Start 09/11/16 at 20:06 Digoxin (Digoxin) 0.125 mg DAILY@13 NGT Last administered on 09/18/16 13:30; Admin Dose 0.125 MG; Start 09/11/16 at 20:06 Famotidine (Pepcid) 20 mg BID NGT Last administered on 09/18/16 20:47; Admin Dose 20 MG; Start 09/11/16 at 20:06 Ferrous Sulfate (Feosol Liquid Cup) 300 mg DAILY NGT Last administered on 09:44; Admin Dose 300 MG; Start 09/12/16 at 09:00 Folic Acid (Folic Acid) 1 mg DAILY NGT Last administered on 09/18/16 09:45; Admin Dose 1 MG; Start 09/11/16 at 20:10 Losartan Potassium (Cozaar) 50 mg BID NGT ; Start 09/11/16 at 20:10; Status Future Hold Multivitamins Therapeutic (Theragran) 1 tab DAILY NGT Last administered on 09/18 09:46; Admin Dose 1 TAB; Start 09/11/16 at 20:11 Thiamine HCl (Vitamin B1) 100 mg DAILY NGT Last administered on 09/18/16 09:46 ; Admin Dose 100 MG; Start 09/11/16 at 20:11 Spironolactone (Aldactone) 50 mg DAILY NGT Last administered on 09/18/16 09:42 ; Admin Dose 50 MG; Start 09/12/16 at 09:00 Bisacodyl (Dulcolax Supp) 10 mg DAILY PRN [place] CONSTIPATION Last administered on 09/15/16 01:40; Admin Dose 10 MG; Start 09/14/16 at 09:00 Diltiazem HCl 60 mg 60 mg QID NGT Last administered on 09/18/16 20:48; Admin Dose 60 MG; Start 09/16/16 at 13:00 Phenylephrine HCl/ Dextrose (Jacinto-Syneph/D5W) 500 ml @ 75 mls/hr TITRATE IV ; Start 09/16/16 at 18:30 Amiodarone HCl (Cordarone) 200 mg BID NGT Last administered on 09/18/16 20:49 ; Admin Dose 200 MG; Start 09/16/16 at 21:00 TRUDY HILTON NP Sep 19, 2016 09:34
[2016-09-19] MEDS: ACETAZOLAMIDE 250 MG TAB NGT SCH ×3 (10:16→22:10)
[2016-09-19] MEDS: AMIODARONE 200 MG TAB NGT SCH ×2 (10:16→22:10)
[2016-09-19] MEDS: FOLIC ACID 1 MG TAB NGT SCH (10:16)
[2016-09-19] MEDS: FERROUS SULFATE 60 MG/ML 5ML CUP NGT SCH (10:16)
[2016-09-19] MEDS: POTASSIUM CHLORIDE 20 MEQ POWDER FOR ORAL SOLN NGT SCH ×2 (10:16→22:14)
[2016-09-19] MEDS: SPIRONOLACTONE 50 MG TAB NGT SCH (10:16)
[2016-09-19] MEDS: THIAMINE 100 MG TAB NGT SCH (10:16)
[2016-09-19] MEDS: MULTIVITAMINS THERAPEUTIC TAB NGT SCH (10:17)
[2016-09-19] MEDS: DILTIAZEM 60 MG TAB NGT SCH ×4 (10:17→22:09)
[2016-09-19] MEDS: ASPIRIN 81 MG TAB NGT SCH (10:17)
[2016-09-19] MEDS: FAMOTIDINE 20 MG TAB NGT SCH ×2 (10:17→22:10)
[2016-09-19] MEDS: PROPOFOL 100 ML IV SCH (11:00)
[2016-09-19] MEDS: DIGOXIN 0.125 MG TAB NGT SCH (13:20)
--- NOTE | 2016-09-19 15:12 | PN ---
Date/Time of Note Date/Time of Note DATE: 09/19/16 TIME: 14:54 Assessment/Plan VTE Prophylaxis VTE Prophylaxis Intervention: SCD's Lines/Catheters IV Catheter Type (from Nrs): PICC Line Central line still needed: Yes Urinary Cath still in place: Yes Reason Cath still needed: other (indicate) Assessment/Plan Chief Complaint/Hosp Course 1. Atrial fibrillation: chronic and is on HR control. 2. Chest pain has resolved. 3. Chronic obstructive pulmonary disease 4. Alcoholic liver disease. 5. Thrombocytopenia. 6. Morbid obesity. 7. Hyponatremia. 8. Hypomagnesemia. 9. hypoxemic respiratory failure RECOMMENDATIONS: Correct electrolytes including magnesium, KCL prn. respiratory care and vent support as per pulmonary. I will discontinue the amiodarone. And the fact that the patient is in chronic atrial fibrillation and has severe pulmonary disease, is best to control heart rate with other medications. The patient has had a stress test done last year, outpatient office Dr. Evans and that did not show any evidence of ischemia. digoxin prn to control the heart rate better. cont cardizem to control HR OFF of betablocker due to pulm disease. more than 40 minutes of critical care time was spent in management and treatment of this critically ill patient, excluding any procedures. Problems: Subjective 24 Hr Interval Summary Free Text/Dictation Discussed with the staff and rhythm strips was reviewed. I was asked to evaluate the patient again. Since the last time that I had signed off on the patient patient has been intubated due to increasing worsening respiratory failure has been intubated on the ICU. He has been placed on amiodarone and has had pauses on it. However clinically heart has remained stable. Discussed with family at the bedside blood pressure in the low side but has been stable. Exam/Review of Systems Vital Signs Vitals Vital Signs Date Time Temp Pulse Resp B/P Pulse Ox O2 Delivery O2 Flow Rate FiO2 09/19/16 13:55 74 22 95 35 09/19/16 12:00 98.2 110/76 Mechanical Ventilator Intake and Output 09/18/16 09/18/16 09/19/16 15:00 23:00 07:00 Intake Total 350 ml 576.855 ml 740.192 ml Output Total 440 ml 390 ml 450 ml Balance -90 ml 186.855 ml 290.192 ml Exam General: Patient is intubated on the vent in ICU. Obese. Respiratory: Wheezes heard anteriorly. GI is obese soft no rebound or guarding noted. Extremity with diffuse lower extremity edema neuro is awake and responds appropriately pysch: Appear to be calm. Head: atraumatic, normocephalic Eyes: EOMI, nl conjunctiva Cardiovascular: irregular rhythm, nl pulses, regular rate and rhythm Gastrointestinal: ascites, soft Results Result Diagram: 09/19/16 0420 09/19/16 0420 Results 24 hrs Laboratory Tests Test 09/19/16 04:20 09/19/16 10:01 White Blood Count 8.0 Red Blood Count 4.01 L Hemoglobin 11.9 L Hematocrit 35.7 L Mean Corpuscular Volume 89.0 Mean Corpuscular Hemoglobin 29.7 Mean Corpuscular Hemoglobin Concent 33.3 Red Cell Distribution Width 14.8 H Platelet Count 127 L Mean Platelet Volume 11.6 H Neutrophils % 73.1 Lymphocytes % 14.5 L Monocytes % 6.6 Eosinophils % 5.1 Basophils % 0.5 Nucleated Red Blood Cells % 0.0 Neutrophils # 5.9 Lymphocytes # 1.2 Monocytes # 0.5 Eosinophils # 0.4 Basophils # 0.0 Nucleated Red Blood Cells # 0.0 Sodium Level 142 Potassium Level 3.5 Chloride Level 112 H Carbon Dioxide Level 24 Anion Gap 10 Blood Urea Nitrogen 17 Creatinine 0.68 Glucose Level 87 Calcium Level 8.8 Phosphorus Level 4.2 Magnesium Level 1.7 Total Bilirubin 0.5 Direct Bilirubin 0.00 Indirect Bilirubin 0.5 Aspartate Amino Transf (AST/SGOT) 35 Alanine Aminotransferase (ALT/SGPT) 42 Alkaline Phosphatase 98 Ammonia 91 H Total Protein 5.8 L Albumin 2.8 L Globulin 3.00 Albumin/Globulin Ratio 0.93 Bedside Glucose 88 Medications Medications Current Medications Morphine Sulfate (morphine) 3 mg Q4H PRN IV PAIN; Start 08/31/16 at 01:00 Ondansetron HCl (Zofran Inj) 4 mg Q6H PRN IV NAUSEA AND/OR VOMITING Last administered on 09/18/16 12:37; Admin Dose 4 MG; Start 08/31/16 at 02:00 Morphine Sulfate 2 mg 2 mg Q4H PRN IV PAIN LEVEL 7-10 Last administered on 09/14 09:45; Admin Dose 2 MG; Start 08/31/16 at 02:00 Propofol 100 ml @ 4.695 mls/ hr Q12H IV Last administered on 09/18/16 22:31; Admin Dose 14.123 MLS/HR; Start 09/07/16 at 13:30 Piperacillin Sod/ Tazobactam Sod 100 ml @ 200 mls/hr Q6 IVPB Last administered on 09/19/16 13:20; Admin Dose 200 MLS/HR; Start 09/07/16 at 16:00 Norepinephrine/ Dextrose (Levophed/D5W) 500 ml @ 1.87 mls/hr TITRATE IV Last administered on 09/15/16 06:19; Admin Dose 1.87 MLS/HR; Start 09/07/16 at 17:00 Acetazolamide (Diamox) 250 mg TID NGT Last administered on 09/19/16 13:20; Admin Dose 250 MG; Start 09/08/16 at 21:00 IV Flush (NS 10 ml) 10 ml PRN PRN IV IV PROTOCOL; Start 09/08/16 at 17:00 Potassium Chloride (Potassium Chloride Pwd/Soln) 20 meq BID NGT Last administered on 09/19/16 10:16; Admin Dose 20 MEQ; Start 09/11/16 at 21:00 Aspirin (Aspirin) 81 mg DAILY NGT Last administered on 09/19/16 10:17; Admin Dose 81 MG; Start 09/12/16 at 09:00 Atorvastatin Calcium (Lipitor) 10 mg QHS NGT Last administered on 09/18/16 20: 48; Admin Dose 10 MG; Start 09/11/16 at 20:06 Digoxin (Digoxin) 0.125 mg DAILY@13 NGT Last administered on 09/19/16 13:20; Admin Dose 0.125 MG; Start 09/11/16 at 20:06 Famotidine (Pepcid) 20 mg BID NGT Last administered on 09/19/16 10:17; Admin Dose 20 MG; Start 09/11/16 at 20:06 Ferrous Sulfate (Feosol Liquid Cup) 300 mg DAILY NGT Last administered on 10:16; Admin Dose 300 MG; Start 09/12/16 at 09:00 Folic Acid (Folic Acid) 1 mg DAILY NGT Last administered on 09/19/16 10:16; Admin Dose 1 MG; Start 09/11/16 at 20:10 Losartan Potassium (Cozaar) 50 mg BID NGT ; Start 09/11/16 at 20:10; Status Future Hold Multivitamins Therapeutic (Theragran) 1 tab DAILY NGT Last administered on 09/19 10:17; Admin Dose 1 TAB; Start 09/11/16 at 20:11 Thiamine HCl (Vitamin B1) 100 mg DAILY NGT Last administered on 09/19/16 10:16 ; Admin Dose 100 MG; Start 09/11/16 at 20:11 Spironolactone (Aldactone) 50 mg DAILY NGT Last administered on 09/19/16 10:16 ; Admin Dose 50 MG; Start 09/12/16 at 09:00 Bisacodyl (Dulcolax Supp) 10 mg DAILY PRN [place] CONSTIPATION Last administered on 09/15/16 01:40; Admin Dose 10 MG; Start 09/14/16 at 09:00 Diltiazem HCl 60 mg 60 mg QID NGT Last administered on 09/19/16 13:25; Admin Dose 60 MG; Start 09/16/16 at 13:00 Phenylephrine HCl/ Dextrose (Jacinto-Syneph/D5W) 500 ml @ 75 mls/hr TITRATE IV ; Start 09/16/16 at 18:30 Amiodarone HCl (Cordarone) 200 mg BID NGT Last administered on 09/19/16 10:16 ; Admin Dose 200 MG; Start 09/16/16 at 21:00 Lactulose (Enulose) 20 gm Q6 NGT Last administered on 09/19/16 13:26; Admin Dose 20 GM; Start 09/19/16 at 12:00 TAL ABREU MD Sep 19, 2016 15:07
--- NOTE | 2016-09-19 22:03 | RADRPT ---
PROCEDURE: XR Chest. CLINICAL INDICATION: Line placement. TECHNIQUE: Single frontal chest x-ray. COMPARISON: 09/19/2016 FINDINGS: NG tube is present with the tip in the stomach/abdomen, below inferior aspect of the image. Right PI CC line is present tip in the SVC. Endotracheal tube tip is at the level aortic knob. Heart is enla rged.. There is unchanged mild pulmonary vascular congestion. There are atherosclerotic calcificati ons aortic knob. There are right greater than left pleural effusion with unchanged associated atelec tasis.. No focal infiltrate is seen. There is no pleural effusion. There is no pneumothorax. The osseous structures are unremarkable. IMPRESSION: NG tube tip in the abdomen before the inferior aspect of the image. Otherwise no change. RPTAT: [facility] .Tashi Whaley MD, Date Time Electronically viewed and signed by .Tashi Whaley MD, on 09/19/2016 22:02 .K/
[2016-09-19] MEDS: ATORVASTATIN 10 MG TAB NGT SCH (22:10)
[2016-09-20] VITALS (51 sets, daily range): BP systolic 93–154; BP diastolic 43–98; PULSE 63–100; RESP 20–39; Ht 177.8 cm; Wt 145.0 kg
[2016-09-20] MEDS: PIPER-TAZO 3.375 GM IV (PMX) 100 ML IVPB SCH ×4 (00:13→17:33)
[2016-09-20] MEDS: LACTULOSE 30ML CUP NGT SCH ×4 (00:13→17:34)
[2016-09-20] MEDS: PROPOFOL 100 ML IV SCH ×2 (00:13→22:58)
[2016-09-20] MEDS: IPRATROPIUM (HFA) 12.9 GM INHALER INH SCH ×4 (01:17→21:00)
[2016-09-20 04:43] LABS: BASOPHIL # 0.1 10^3/ul (0.0-0.1); BASOPHILS % 0.8 % (0.0-2.0); EOSINOPHILS # 0.3 10^3/ul (0.0-0.5); EOSINOPHILS % 4.1 % (0.0-7.0); HEMATOCRIT 37.5 % (42.0-52.0); HEMOGLOBIN 12.6 g/dl (14.0-18.0); LYMPHOCYTES # 1.1 10^3/ul (0.8-2.9); LYMPHOCYTES % 13.8 % (15.0-51.0); MEAN CORPUSCULAR HGB CONC 33.6 g/dl (32.0-37.0); MEAN CORPUSCULAR VOLUME 89.3 fl (82.0-101.0); MEAN PLATELET VOLUME 11.4 fl (7.4-10.4); MONOCYTE # 0.5 10^3/ul (0.3-0.9); MONOCYTES % 6.7 % (0.0-11.0); NEUTROPHIL # 5.9 10^3/ul (1.6-7.5); NEUTROPHILS % 74.2 % (39.0-77.0); PLATELET COUNT 132 10^3/UL (140-415); RED CELL DISTRIBUTION WIDTH 14.6 % (11.5-14.5); WHITE BLOOD COUNT 7.9 10^3/ul (4.8-10.8)
[2016-09-20 04:46] LABS: ADD SCAN DIFF NO
[2016-09-20 05:03] LABS: MAGNESIUM 1.8 mg/dl (1.7-2.5); PHOSPHORUS 3.9 mg/dl (2.5-4.9)
[2016-09-20 05:05] LABS: ALBUMIN/GLOBULIN RATIO 0.88; BILIRUBIN,INDIRECT 0.7 mg/dl (0-1.1); BILIRUBIN,TOTAL 0.7 mg/dl (0.2-1.3); CALCIUM 9.2 mg/dl (8.4-10.2); CREATININE 0.68 mg/dl (0.61-1.24); POTASSIUM 3.6 mmol/L (3.5-5.1); TOTAL PROTEIN 6.4 g/dl (6.1-8.1)
--- NOTE | 2016-09-20 09:06 | PN ---
Date/Time of Note Date/Time of Note DATE: 09/20/16 TIME: 09:04 Assessment/Plan VTE Prophylaxis VTE Prophylaxis Intervention: SCD's Lines/Catheters IV [facility] Type (from [facility]): PICC Line Central line still needed: Yes Urinary Cath still in place: Yes Reason Cath still needed: other (indicate) Assessment/Plan Chief Complaint/Hosp Course 1. Chest pain. Acute coronary syndrome ruled out. Troponins negative. The patient's 2D echocardiogram showing ejection fraction of 55%. The patient will be continued on aspirin. 2. Essential hypertension. Status post pressors for episode of hypotension. Resume antihypertensives as the blood pressure allows. 3. Chronic obstructive pulmonary disease. The patient on inhaled bronchodilators. Pulmonology following. 4. Acute respiratory failure. Acute on chronic. Hypoxic and hypercapnic. Got intubated on 09/07/2016 because of worsening respiratory distress. Ventilator management as per Pulmonary. 5. Atrial fibrillation. Rate controlled. Unable to anticoagulate because of underlying thrombocytopenia. On amiodarone. 6. Alcoholic liver disease. Continue diuretics. The patient will also be continued on lactulose because of underlying hyperammonemia. 7. Thrombocytopenia. Most probably from acute alcoholic liver disease. Monitor for any bleeding. 8. Hyponatremia. Resolved. S/P 1 dose of vasopressin antagonist on 2016. 9. Alcohol abuse. The patient's last drink was on the day prior to hospitalization. The patient will be maintained on daily thiamine. Status post Librium taper. 10. Possible aspiration with aspiration pneumonia. The patient on empiric antibiotics including coverage for anaerobes. 11. Acute on chronic CHF exacerbation. Diastolic dysfunction. Continue diuretics if blood pressure allows. 12. Fluid, electrolytes and nutrition. NG tube feedings. 13. Deep venous thrombosis prophylaxis. B/L SCDs. 14. Gastrointestinal prophylaxis. H2 receptor blockers. 15. Plan. Continue ICU monitoring. Careful diuresis. Increase the dose of lactulose. Ventilator weaning as per Pulmonary. Case discussed with Dr. Hoffmann. On 09/18/2016, had a long conversation with the patient's mother with the help of a spa consultant regarding the patient's prognosis. The patient's mother was explained about the need for a tracheostomy if unable to wean the patient off the ventilator. Later, the patient's ex- was present in the patient's room. Talked to the patient's ex- in the presence of the patient 's mother after getting consent to talk to the patient's ex- from the mother. Patient's ex- was informed about the necessity for a tracheostomy and PEG tube placement if unable to wean the patient off the ventilator. The patient's mom and ex- verbalized understanding, and they agreed for proceeding with a tracheostomy and PEG tube placement if necessary. Critical care time: 35 minutes. Problems: Subjective 24 Hr Interval Summary Free Text/Dictation Remains ventilated. Exam/Review of Systems Vital Signs Vitals Vital Signs Date Time Temp Pulse Resp B/P Pulse Ox O2 Delivery O2 Flow Rate FiO2 09/20/16 08:04 87 09/20/16 07:12 21 95 35 09/20/16 06:00 125/93 Mechanical Ventilator 09/20/16 04:00 98.2 Intake and Output 09/19/16 09/19/16 09/20/16 15:00 23:00 07:00 Intake Total 194.0 ml 290.35 ml 601.974 ml Output Total 420 ml 470 ml 395 ml Balance -226.0 ml -179.65 ml 206.974 ml Exam GENERAL: This is a morbidly obese male patient lying in orally intubated. HEENT: Head normocephalic and atraumatic. Eyes: Anicteric sclerae. Conjunctivae clear. ENT: Nasal septum is midline. NGT in place. Oral mucosa is dry.Orally intubated. NECK: Short with increased neck circumference. RESPIRATORY: Bilaterally diminished breath sounds. Orally intubated. On AC mode ventilation. CARDIAC: Irregularly irregular rhythm. S1 and S2 heard. ABDOMEN: Obese. Bowel sounds hypoactive. GENITOURINARY: Deferred. EXTREMITIES: No cyanosis, no clubbing. Bilateral lower extremity 1+ pitting edema. Peripheral pulses are palpable. NEUROLOGIC: The patient is sedated. Results Result Diagram: 09/20/16 0350 09/20/16 035 Results 24 hrs Laboratory Tests Test 09/19/16 10:01 09/20/16 03:50 Bedside Glucose 88 White Blood Count 7.9 Red Blood Count 4.20 L Hemoglobin 12.6 L Hematocrit 37.5 L Mean Corpuscular Volume 89.3 Mean Corpuscular Hemoglobin 30.0 Mean Corpuscular Hemoglobin Concent 33.6 Red Cell Distribution Width 14.6 H Platelet Count 132 L Mean Platelet Volume 11.4 H Neutrophils % 74.2 Lymphocytes % 13.8 L Monocytes % 6.7 Eosinophils % 4.1 Basophils % 0.8 Nucleated Red Blood Cells % 0.0 Neutrophils # 5.9 Lymphocytes # 1.1 Monocytes # 0.5 Eosinophils # 0.3 Basophils # 0.1 Nucleated Red Blood Cells # 0.0 Sodium Level 145 H Potassium Level 3.6 Chloride Level 109 Carbon Dioxide Level 23 Anion Gap 17 #H Blood Urea Nitrogen 16 Creatinine 0.68 Glucose Level 85 Calcium Level 9.2 Phosphorus Level 3.9 Magnesium Level 1.8 Total Bilirubin 0.7 Direct Bilirubin 0.00 Indirect Bilirubin 0.7 Aspartate Amino Transf (AST/SGOT) 40 Alanine Aminotransferase (ALT/SGPT) 44 Alkaline Phosphatase 111 Ammonia 49 H Total Protein 6.4 Albumin 3.0 L Globulin 3.40 H Albumin/Globulin Ratio 0.88 Medications Medications Current Medications Morphine Sulfate (morphine) 3 mg Q4H PRN IV PAIN; Start 08/31/16 at 01:00 Ondansetron HCl (Zofran Inj) 4 mg Q6H PRN IV NAUSEA AND/OR VOMITING Last administered on 09/18/16 12:37; Admin Dose 4 MG; Start 08/31/16 at 02:00 Morphine Sulfate 2 mg 2 mg Q4H PRN IV PAIN LEVEL 7-10 Last administered on 09/14 09:45; Admin Dose 2 MG; Start 08/31/16 at 02:00 Propofol 100 ml @ 4.695 mls/ hr Q12H IV Last administered on 09/20/16 00:13; Admin Dose 9.39 MLS/HR; Start 09/07/16 at 13:30 Piperacillin Sod/ Tazobactam Sod 100 ml @ 200 mls/hr Q6 IVPB Last administered on 09/20/16 05:20; Admin Dose 200 MLS/HR; Start 09/07/16 at 16:00 Norepinephrine/ Dextrose (Levophed/D5W) 500 ml @ 1.87 mls/hr TITRATE IV Last administered on 09/15/16 06:19; Admin Dose 1.87 MLS/HR; Start 09/07/16 at 17:00 Acetazolamide (Diamox) 250 mg TID NGT Last administered on 09/19/16 22:10; Admin Dose 250 MG; Start 09/08/16 at 21:00 IV Flush (NS 10 ml) 10 ml PRN PRN IV IV PROTOCOL; Start 09/08/16 at 17:00 Potassium Chloride (Potassium Chloride Pwd/Soln) 20 meq BID NGT Last administered on 09/19/16 22:14; Admin Dose 20 MEQ; Start 09/11/16 at 21:00 Aspirin (Aspirin) 81 mg DAILY NGT Last administered on 09/19/16 10:17; Admin Dose 81 MG; Start 09/12/16 at 09:00 Atorvastatin Calcium (Lipitor) 10 mg QHS NGT Last administered on 09/19/16 22: 10; Admin Dose 10 MG; Start 09/11/16 at 20:06 Digoxin (Digoxin) 0.125 mg DAILY@13 NGT Last administered on 09/19/16 13:20; Admin Dose 0.125 MG; Start 09/11/16 at 20:06 Famotidine (Pepcid) 20 mg BID NGT Last administered on 09/19/16 22:10; Admin Dose 20 MG; Start 09/11/16 at 20:06 Ferrous Sulfate (Feosol Liquid Cup) 300 mg DAILY NGT Last administered on 10:16; Admin Dose 300 MG; Start 09/12/16 at 09:00 Folic Acid (Folic Acid) 1 mg DAILY NGT Last administered on 09/19/16 10:16; Admin Dose 1 MG; Start 09/11/16 at 20:10 Losartan Potassium (Cozaar) 50 mg BID NGT ; Start 09/11/16 at 20:10; Status Future Hold Multivitamins Therapeutic (Theragran) 1 tab DAILY NGT Last administered on 09/19 10:17; Admin Dose 1 TAB; Start 09/11/16 at 20:11 Thiamine HCl (Vitamin B1) 100 mg DAILY NGT Last administered on 09/19/16 10:16 ; Admin Dose 100 MG; Start 09/11/16 at 20:11 Spironolactone (Aldactone) 50 mg DAILY NGT Last administered on 09/19/16 10:16 ; Admin Dose 50 MG; Start 09/12/16 at 09:00 Bisacodyl (Dulcolax Supp) 10 mg DAILY PRN [place] CONSTIPATION Last administered on 09/15/16 01:40; Admin Dose 10 MG; Start 09/14/16 at 09:00 Diltiazem HCl 60 mg 60 mg QID NGT Last administered on 09/19/16 22:09; Admin Dose 60 MG; Start 09/16/16 at 13:00 Phenylephrine HCl/ Dextrose (Jacinto-Syneph/D5W) 500 ml @ 75 mls/hr TITRATE IV ; Start 09/16/16 at 18:30 Amiodarone HCl (Cordarone) 200 mg BID NGT Last administered on 09/19/16 22:10 ; Admin Dose 200 MG; Start 09/16/16 at 21:00 Lactulose (Enulose) 20 gm Q6 NGT Last administered on 09/20/16 05:20; Admin Dose 20 GM; Start 09/19/16 at 12:00 TRUDY HILTON NP Sep 20, 2016 09:06
[2016-09-20] MEDS: ALBUTEROL 18 GM INHALER INH SCH ×3 (09:25→21:00)
[2016-09-20] MEDS: MULTIVITAMINS THERAPEUTIC TAB NGT SCH (10:09)
[2016-09-20] MEDS: THIAMINE 100 MG TAB NGT SCH (10:09)
[2016-09-20] MEDS: FOLIC ACID 1 MG TAB NGT SCH (10:09)
[2016-09-20] MEDS: ACETAZOLAMIDE 250 MG TAB NGT SCH ×3 (10:09→20:39)
[2016-09-20] MEDS: POTASSIUM CHLORIDE 20 MEQ POWDER FOR ORAL SOLN NGT SCH ×2 (10:09→20:39)
[2016-09-20] MEDS: FAMOTIDINE 20 MG TAB NGT SCH ×2 (10:10→20:39)
[2016-09-20] MEDS: FERROUS SULFATE 60 MG/ML 5ML CUP NGT SCH (10:10)
[2016-09-20] MEDS: AMIODARONE 200 MG TAB NGT SCH (10:10)
[2016-09-20] MEDS: DILTIAZEM 60 MG TAB NGT SCH ×4 (10:10→20:38)
[2016-09-20] MEDS: ASPIRIN 81 MG TAB NGT SCH (10:10)
[2016-09-20] MEDS: SPIRONOLACTONE 50 MG TAB NGT SCH (10:11)
--- NOTE | 2016-09-20 12:57 | CONS ---
Date/Time of Note Date/Time of Note DATE: 09/20/16 TIME: 12:54 Consult Date/Type/Reason Admit Date/Time Aug 30, 2016 at 23:34 Initial Consult Date Type of Consultation: Pulmonary/critical care Subjective Doing well on MV and following commands. Objective Vital Signs Date Time Temp Pulse Resp B/P Pulse Ox O2 Delivery O2 Flow Rate FiO2 09/20/16 12:02 65 09/20/16 11:54 20 95 35 09/20/16 11:00 96/61 Mechanical Ventilator 09/20/16 08:00 98.8 Intake and Output 09/19/16 09/19/16 09/20/16 15:00 23:00 07:00 Intake Total 194.0 ml 290.35 ml 601.974 ml Output Total 420 ml 470 ml 395 ml Balance -226.0 ml -179.65 ml 206.974 ml Exam HEENT: Neck supple; no JVD; no LAD, ET tube CVS: RRR, S1 and S2 CHEST: Clear ABD: Soft, NT, + BS, obese EXT: No c/c/ + edema Results/Medications Result Diagram: 09/20/16 0350 09/20/16 0350 Results 24 hrs Laboratory Tests Test 09/20/16 03:50 White Blood Count 7.9 Red Blood Count 4.20 L Hemoglobin 12.6 L Hematocrit 37.5 L Mean Corpuscular Volume 89.3 Mean Corpuscular Hemoglobin 30.0 Mean Corpuscular Hemoglobin Concent 33.6 Red Cell Distribution Width 14.6 H Platelet Count 132 L Mean Platelet Volume 11.4 H Neutrophils % 74.2 Lymphocytes % 13.8 L Monocytes % 6.7 Eosinophils % 4.1 Basophils % 0.8 Nucleated Red Blood Cells % 0.0 Neutrophils # 5.9 Lymphocytes # 1.1 Monocytes # 0.5 Eosinophils # 0.3 Basophils # 0.1 Nucleated Red Blood Cells # 0.0 Sodium Level 145 H Potassium Level 3.6 Chloride Level 109 Carbon Dioxide Level 23 Anion Gap 17 #H Blood Urea Nitrogen 16 Creatinine 0.68 Glucose Level 85 Calcium Level 9.2 Phosphorus Level 3.9 Magnesium Level 1.8 Total Bilirubin 0.7 Direct Bilirubin 0.00 Indirect Bilirubin 0.7 Aspartate Amino Transf (AST/SGOT) 40 Alanine Aminotransferase (ALT/SGPT) 44 Alkaline Phosphatase 111 Ammonia 49 H Total Protein 6.4 Albumin 3.0 L Globulin 3.40 H Albumin/Globulin Ratio 0.88 Medications Current Medications Morphine Sulfate (morphine) 3 mg Q4H PRN IV PAIN; Start 08/31/16 at 01:00 Ondansetron HCl (Zofran Inj) 4 mg Q6H PRN IV NAUSEA AND/OR VOMITING Last administered on 09/18/16 12:37; Admin Dose 4 MG; Start 08/31/16 at 02:00 Morphine Sulfate 2 mg 2 mg Q4H PRN IV PAIN LEVEL 7-10 Last administered on 09/14 09:45; Admin Dose 2 MG; Start 08/31/16 at 02:00 Propofol 100 ml @ 4.695 mls/ hr Q12H IV Last administered on 09/20/16 00:13; Admin Dose 9.39 MLS/HR; Start 09/07/16 at 13:30 Piperacillin Sod/ Tazobactam Sod 100 ml @ 200 mls/hr Q6 IVPB Last administered on 09/20/16 05:20; Admin Dose 200 MLS/HR; Start 09/07/16 at 16:00 Norepinephrine/ Dextrose (Levophed/D5W) 500 ml @ 1.87 mls/hr TITRATE IV Last administered on 09/15/16 06:19; Admin Dose 1.87 MLS/HR; Start 09/07/16 at 17:00 Acetazolamide (Diamox) 250 mg TID NGT Last administered on 09/20/16 10:09; Admin Dose 250 MG; Start 09/08/16 at 21:00 IV Flush (NS 10 ml) 10 ml PRN PRN IV IV PROTOCOL; Start 09/08/16 at 17:00 Potassium Chloride (Potassium Chloride Pwd/Soln) 20 meq BID NGT Last administered on 09/20/16 10:09; Admin Dose 20 MEQ; Start 09/11/16 at 21:00 Aspirin (Aspirin) 81 mg DAILY NGT Last administered on 09/20/16 10:10; Admin Dose 81 MG; Start 09/12/16 at 09:00 Atorvastatin Calcium (Lipitor) 10 mg QHS NGT Last administered on 09/19/16 22: 10; Admin Dose 10 MG; Start 09/11/16 at 20:06 Digoxin (Digoxin) 0.125 mg DAILY@13 NGT Last administered on 09/19/16 13:20; Admin Dose 0.125 MG; Start 09/11/16 at 20:06 Famotidine (Pepcid) 20 mg BID NGT Last administered on 09/20/16 10:10; Admin Dose 20 MG; Start 09/11/16 at 20:06 Ferrous Sulfate (Feosol Liquid Cup) 300 mg DAILY NGT Last administered on 10:10; Admin Dose 300 MG; Start 09/12/16 at 09:00 Folic Acid (Folic Acid) 1 mg DAILY NGT Last administered on 09/20/16 10:09; Admin Dose 1 MG; Start 09/11/16 at 20:10 Losartan Potassium (Cozaar) 50 mg BID NGT ; Start 09/11/16 at 20:10; Status Future Hold Multivitamins Therapeutic (Theragran) 1 tab DAILY NGT Last administered on 10:09; Admin Dose 1 TAB; Start 09/11/16 at 20:11 Thiamine HCl (Vitamin B1) 100 mg DAILY NGT Last administered on 09/20/16 10:09 ; Admin Dose 100 MG; Start 09/11/16 at 20:11 Spironolactone (Aldactone) 50 mg DAILY NGT Last administered on 09/20/16 10:11 ; Admin Dose 50 MG; Start 09/12/16 at 09:00 Bisacodyl (Dulcolax Supp) 10 mg DAILY PRN [place] CONSTIPATION Last administered on 09/15/16 01:40; Admin Dose 10 MG; Start 09/14/16 at 09:00 Diltiazem HCl 60 mg 60 mg QID NGT Last administered on 09/20/16 10:10; Admin Dose 60 MG; Start 09/16/16 at 13:00 Phenylephrine HCl/ Dextrose (Jacinto-Syneph/D5W) 500 ml @ 75 mls/hr TITRATE IV ; Start 09/16/16 at 18:30 Amiodarone HCl (Cordarone) 200 mg BID NGT Last administered on 09/20/16 10:10; Admin Dose 200 MG; Start 09/16/16 at 21:00 Lactulose (Enulose) 20 gm Q6 NGT Last administered on 09/20/16 05:20; Admin Dose 20 GM; Start 09/19/16 at 12:00 Assessment/Plan Additional Assessment/Plan IMP: 1. Acute on Chronic Hypercapnic Respiratory Failure 2. Vent Dependence 3. Atrial Fibrillation 4. OHS/LOTTIE 5. AMS RECS: 1. Wean to CPAP/PS 2. Sedation holiday 3. Obtain ABG 4. Hold TFs 35 min CC time JEANETTE DUVAL MD Sep 20, 2016 12:57
[2016-09-20] MEDS: DIGOXIN 0.125 MG TAB NGT SCH (13:35)
[2016-09-20 14:50] LABS: AADO2 Arterial 109.2 mmHg (7.0-24.0); Allen Test ACCEPTAB; Arterial Base Excess -4.6 mmol/L (-3.0-3); Arterial COHb 0.8 % (0.0-3.0); Arterial HCO3 23.6 mmol/L (22.0-26.0); Arterial MetHb 0.4 % (0.0-1.5); Arterial Total Hemglobin 14.4 g/dl (12.0-18.0); Blood Gas PS 8; MODE VENT - CPAP
--- NOTE | 2016-09-20 14:58 | PN ---
Date/Time of Note Date/Time of Note DATE: 09/20/16 TIME: 14:50 Assessment/Plan VTE Prophylaxis VTE Prophylaxis Intervention: other Lines/Catheters IV Catheter Type (from Nrs): PICC Line Central line still needed: Yes Urinary Cath still in place: Yes Reason Cath still needed: other (indicate) Assessment/Plan Chief Complaint/Hosp Course 1. Atrial fibrillation: chronic and is on HR control. 2. Chest pain has resolved. 3. Chronic obstructive pulmonary disease 4. Alcoholic liver disease. 5. Thrombocytopenia: improved now 6. Morbid obesity. 7. Hyponatremia. 8. Hypomagnesemia. 9. hypoxemic respiratory failure: intubated now 10. hematuria: stable 11. anemia RECOMMENDATIONS: Correct electrolytes including magnesium, KCL prn. respiratory care and vent support as per pulmonary. I will discontinue the amiodarone. And the fact that the patient is in chronic atrial fibrillation and has severe pulmonary disease, is best to control heart rate with other medications. The patient has had a stress test done last year, outpatient office Dr. Evans and that did not show any evidence of ischemia. cont digoxin to control the heart rate better. cont cardizem to control HR OFF of betablocker due to pulm disease. will start eliquis to replace ASA now that platelet is better. more than 39 minutes of critical care time was spent in management and treatment of this critically ill patient, excluding any procedures. Problems: Subjective 24 Hr Interval Summary Free Text/Dictation d/w staff and family. rhythm was reviewed. pt remains in AFIB. HR has been stable. no long pauses anymore pt remains intubated on vent IN ICU nonverbal Exam/Review of Systems Vital Signs Vitals Vital Signs Date Time Temp Pulse Resp B/P Pulse Ox O2 Delivery O2 Flow Rate FiO2 09/20/16 13:00 35 09/20/16 12:02 65 09/20/16 11:54 20 95 09/20/16 11:00 96/61 Mechanical Ventilator 09/20/16 08:00 98.8 Intake and Output 09/19/16 09/19/16 09/20/16 15:00 23:00 07:00 Intake Total 194.0 ml 290.35 ml 601.974 ml Output Total 420 ml 470 ml 395 ml Balance -226.0 ml -179.65 ml 206.974 ml Exam eneral: Patient is intubated on the vent in ICU. Obese. + resp distress Respiratory:mild rhonchi heard anteriorly. GI is obese soft no rebound or guarding noted. Extremity with lower extremity edema neuro is sedated. pysch: Appear to be calm. Head: atraumatic, normocephalic Eyes: EOMI, nl conjunctiva Cardiovascular: irregular rhythm, systolic murmur Gastrointestinal: ascites, soft no rebound or guarding Results Result Diagram: 09/20/16 0350 09/20/16 0350 Results 24 hrs Laboratory Tests Test 09/20/16 03:50 White Blood Count 7.9 Red Blood Count 4.20 L Hemoglobin 12.6 L Hematocrit 37.5 L Mean Corpuscular Volume 89.3 Mean Corpuscular Hemoglobin 30.0 Mean Corpuscular Hemoglobin Concent 33.6 Red Cell Distribution Width 14.6 H Platelet Count 132 L Mean Platelet Volume 11.4 H Neutrophils % 74.2 Lymphocytes % 13.8 L Monocytes % 6.7 Eosinophils % 4.1 Basophils % 0.8 Nucleated Red Blood Cells % 0.0 Neutrophils # 5.9 Lymphocytes # 1.1 Monocytes # 0.5 Eosinophils # 0.3 Basophils # 0.1 Nucleated Red Blood Cells # 0.0 Sodium Level 145 H Potassium Level 3.6 Chloride Level 109 Carbon Dioxide Level 23 Anion Gap 17 #H Blood Urea Nitrogen 16 Creatinine 0.68 Glucose Level 85 Calcium Level 9.2 Phosphorus Level 3.9 Magnesium Level 1.8 Total Bilirubin 0.7 Direct Bilirubin 0.00 Indirect Bilirubin 0.7 Aspartate Amino Transf (AST/SGOT) 40 Alanine Aminotransferase (ALT/SGPT) 44 Alkaline Phosphatase 111 Ammonia 49 H Total Protein 6.4 Albumin 3.0 L Globulin 3.40 H Albumin/Globulin Ratio 0.88 Medications Medications Current Medications Morphine Sulfate (morphine) 3 mg Q4H PRN IV PAIN; Start 08/31/16 at 01:00 Ondansetron HCl (Zofran Inj) 4 mg Q6H PRN IV NAUSEA AND/OR VOMITING Last administered on 09/18/16 12:37; Admin Dose 4 MG; Start 08/31/16 at 02:00 Morphine Sulfate 2 mg 2 mg Q4H PRN IV PAIN LEVEL 7-10 Last administered on 09/14 09:45; Admin Dose 2 MG; Start 08/31/16 at 02:00 Propofol 100 ml @ 4.695 mls/ hr Q12H IV Last administered on 09/20/16 00:13; Admin Dose 9.39 MLS/HR; Start 09/07/16 at 13:30 Piperacillin Sod/ Tazobactam Sod 100 ml @ 200 mls/hr Q6 IVPB Last administered on 09/20/16 13:00; Admin Dose 200 MLS/HR; Start 09/07/16 at 16:00 Norepinephrine/ Dextrose (Levophed/D5W) 500 ml @ 1.87 mls/hr TITRATE IV Last administered on 09/15/16 06:19; Admin Dose 1.87 MLS/HR; Start 09/07/16 at 17:00 Acetazolamide (Diamox) 250 mg TID NGT Last administered on 09/20/16 13:35; Admin Dose 250 MG; Start 09/08/16 at 21:00 IV Flush (NS 10 ml) 10 ml PRN PRN IV IV PROTOCOL; Start 09/08/16 at 17:00 Potassium Chloride (Potassium Chloride Pwd/Soln) 20 meq BID NGT Last administered on 09/20/16 10:09; Admin Dose 20 MEQ; Start 09/11/16 at 21:00 Aspirin (Aspirin) 81 mg DAILY NGT Last administered on 09/20/16 10:10; Admin Dose 81 MG; Start 09/12/16 at 09:00 Atorvastatin Calcium (Lipitor) 10 mg QHS NGT Last administered on 09/19/16 22: 10; Admin Dose 10 MG; Start 09/11/16 at 20:06 Digoxin (Digoxin) 0.125 mg DAILY@13 NGT Last administered on 09/20/16 13:35; Admin Dose 0.125 MG; Start 09/11/16 at 20:06 Famotidine (Pepcid) 20 mg BID NGT Last administered on 09/20/16 10:10; Admin Dose 20 MG; Start 09/11/16 at 20:06 Ferrous Sulfate (Feosol Liquid Cup) 300 mg DAILY NGT Last administered on 10:10; Admin Dose 300 MG; Start 09/12/16 at 09:00 Folic Acid (Folic Acid) 1 mg DAILY NGT Last administered on 09/20/16 10:09; Admin Dose 1 MG; Start 09/11/16 at 20:10 Losartan Potassium (Cozaar) 50 mg BID NGT ; Start 09/11/16 at 20:10; Status Future Hold Multivitamins Therapeutic (Theragran) 1 tab DAILY NGT Last administered on 10:09; Admin Dose 1 TAB; Start 09/11/16 at 20:11 Thiamine HCl (Vitamin B1) 100 mg DAILY NGT Last administered on 09/20/16 10:09 ; Admin Dose 100 MG; Start 09/11/16 at 20:11 Spironolactone (Aldactone) 50 mg DAILY NGT Last administered on 09/20/16 10:11 ; Admin Dose 50 MG; Start 09/12/16 at 09:00 Bisacodyl (Dulcolax Supp) 10 mg DAILY PRN [place] CONSTIPATION Last administered on 09/15/16 01:40; Admin Dose 10 MG; Start 09/14/16 at 09:00 Diltiazem HCl 60 mg 60 mg QID NGT Last administered on 09/20/16 13:35; Admin Dose 60 MG; Start 09/16/16 at 13:00 Phenylephrine HCl/ Dextrose (Jacinto-Syneph/D5W) 500 ml @ 75 mls/hr TITRATE IV ; Start 09/16/16 at 18:30 Amiodarone HCl (Cordarone) 200 mg BID NGT Last administered on 09/20/16 10:10; Admin Dose 200 MG; Start 09/16/16 at 21:00 Lactulose (Enulose) 20 gm Q6 NGT Last administered on 09/20/16 13:00; Admin Dose 20 GM; Start 09/19/16 at 12:00 TAL ABREU MD Sep 20, 2016 14:58
[2016-09-20] MEDS: ATORVASTATIN 10 MG TAB NGT SCH (20:39)
[2016-09-20] MEDS: APIXABAN 5 MG TABLET PO SCH (20:40)
[2016-09-21] VITALS (49 sets, daily range): BP systolic 82–119; BP diastolic 50–87; PULSE 68–98; RESP 17–28
[2016-09-21] MEDS: LACTULOSE 30ML CUP NGT SCH ×4 (01:00→18:49)
[2016-09-21] MEDS: PIPER-TAZO 3.375 GM IV (PMX) 100 ML IVPB SCH ×4 (01:00→18:49)
[2016-09-21] MEDS: IPRATROPIUM (HFA) 12.9 GM INHALER INH SCH ×4 (03:21→19:04)
[2016-09-21 04:42] LABS: BASOPHIL # 0.1 10^3/ul (0.0-0.1); BASOPHILS % 0.6 % (0.0-2.0); EOSINOPHILS # 0.4 10^3/ul (0.0-0.5); EOSINOPHILS % 4.8 % (0.0-7.0); HEMATOCRIT 39.2 % (42.0-52.0); HEMOGLOBIN 12.7 g/dl (14.0-18.0); LYMPHOCYTES # 1.2 10^3/ul (0.8-2.9); LYMPHOCYTES % 14.6 % (15.0-51.0); MEAN CORPUSCULAR HEMOGLOBIN 28.9 pg (29.0-33.0); MEAN CORPUSCULAR HGB CONC 32.4 g/dl (32.0-37.0); MEAN CORPUSCULAR VOLUME 89.1 fl (82.0-101.0); MEAN PLATELET VOLUME 11.4 fl (7.4-10.4); MONOCYTE # 0.6 10^3/ul (0.3-0.9); MONOCYTES % 7.2 % (0.0-11.0); NEUTROPHIL # 5.7 10^3/ul (1.6-7.5); NEUTROPHILS % 72.4 % (39.0-77.0); PLATELET COUNT 151 10^3/UL (140-415); RED CELL DISTRIBUTION WIDTH 14.7 % (11.5-14.5); WHITE BLOOD COUNT 7.9 10^3/ul (4.8-10.8)
[2016-09-21 04:48] LABS: ADD SCAN DIFF NO
[2016-09-21 05:07] LABS: ALBUMIN 3.4 g/dl (3.3-4.9); ALBUMIN/GLOBULIN RATIO 0.97; BILIRUBIN,INDIRECT 0.8 mg/dl (0-1.1); BILIRUBIN,TOTAL 0.8 mg/dl (0.2-1.3); CALCIUM 9.3 mg/dl (8.4-10.2); CREATININE 0.76 mg/dl (0.61-1.24); TOTAL PROTEIN 6.9 g/dl (6.1-8.1)
[2016-09-21 05:13] LABS: MAGNESIUM 1.7 mg/dl (1.7-2.5); PHOSPHORUS 3.3 mg/dl (2.5-4.9)
[2016-09-21 05:44] LABS: POTASSIUM 3.3 mmol/L (3.5-5.1)
--- NOTE | 2016-09-21 08:25 | PN ---
Date/Time of Note Date/Time of Note DATE: 09/21/16 TIME: 08:22 Assessment/Plan VTE Prophylaxis VTE Prophylaxis Intervention: other (Factor Xa inhibitors.) Lines/Catheters IV C[facility] Type (from [facility] PICC Line Central line still needed: Yes Urinary Cath still in place: Yes Reason Cath still needed: other (indicate) Assessment/Plan Chief Complaint/Hosp Course 1. Chest pain. Acute coronary syndrome ruled out. Troponins negative. The patient's 2D echocardiogram showing ejection fraction of 55%. The patient will be continued on aspirin. 2. Essential hypertension. Status post pressors for episode of hypotension. Resume antihypertensives as the blood pressure allows. 3. Chronic obstructive pulmonary disease. The patient on inhaled bronchodilators. Pulmonology following. 4. Acute respiratory failure. Acute on chronic. Hypoxic and hypercapnic. Got intubated on 09/07/2016 because of worsening respiratory distress. Ventilator management as per Pulmonary. 5. Atrial fibrillation. Rate controlled. On amiodarone. On Eliquis for stroke prophylaxis. 6. Alcoholic liver disease. Continue diuretics. The patient will also be continued on lactulose because of underlying hyperammonemia. 7. Thrombocytopenia. Most probably from acute alcoholic liver disease. Monitor for any bleeding. 8. Hyponatremia. Resolved. S/P 1 dose of vasopressin antagonist on 2016. 9. Alcohol abuse. The patient's last drink was on the day prior to hospitalization. The patient will be maintained on daily thiamine. Status post Librium taper. 10. Possible aspiration with aspiration pneumonia. The patient on empiric antibiotics including coverage for anaerobes. 11. Acute on chronic CHF exacerbation. Diastolic dysfunction. Continue diuretics if blood pressure allows. 12. Fluid, electrolytes and nutrition. NG tube feedings. 13. Deep venous thrombosis prophylaxis. B/L SCDs. 14. Gastrointestinal prophylaxis. H2 receptor blockers. 15. Plan. Continue ICU monitoring. Careful diuresis. Replete potassium. Ventilator weaning as per Pulmonary. Case discussed with Dr. Hoffmann. Critical care time: 35 minutes. On 09/18/2016, had a long conversation with the patient's mother with the help of a servicer regarding the patient's prognosis. The patient's mother was explained about the need for a tracheostomy if unable to wean the patient off the ventilator. Later, the patient's ex- was present in the patient's room. Talked to the patient's ex- in the presence of the patient 's mother after getting consent to talk to the patient's ex- from the mother. Patient's ex- was informed about the necessity for a tracheostomy and PEG tube placement if unable to wean the patient off the ventilator. The patient's mom and ex- verbalized understanding, and they agreed for proceeding with a tracheostomy and PEG tube placement if necessary. Problems: Subjective 24 Hr Interval Summary Free Text/Dictation Patient remains intubated. Not on pressors. Exam/Review of Systems Vital Signs Vitals Vital Signs Date Time Temp Pulse Resp B/P Pulse Ox O2 Delivery O2 Flow Rate FiO2 09/21/16 08:12 35 09/21/16 08:00 81 19 98/60 96 Mechanical Ventilator 09/21/16 06:15 99.2 Intake and Output 09/20/16 09/20/16 09/21/16 15:00 23:00 07:00 Intake Total 406.0 ml 472.751 ml 596.340 ml Output Total 445 ml 365 ml 575 ml Balance -39.0 ml 107.751 ml 21.340 ml Exam GENERAL: This is a morbidly obese male patient lying in orally intubated. HEENT: Head normocephalic and atraumatic. Eyes: Anicteric sclerae. Conjunctivae clear. ENT: Nasal septum is midline. NGT in place. Oral mucosa is dry.Orally intubated. NECK: Short with increased neck circumference. RESPIRATORY: Bilaterally diminished breath sounds. Orally intubated. On AC mode ventilation. CARDIAC: Irregularly irregular rhythm. S1 and S2 heard. ABDOMEN: Obese. Bowel sounds hypoactive. GENITOURINARY: Deferred. EXTREMITIES: No cyanosis, no clubbing. Bilateral lower extremity 1+ pitting edema. Peripheral pulses are palpable. NEUROLOGIC: The patient is sedated. Results Result Diagram: 09/21/16 0430 09/21/16 0400 Results 24 hrs Laboratory Tests Test 09/20/16 14:00 09/21/16 04:00 09/21/16 04:30 Blood Gas Specimen Source Blood arterial Arterial Blood Date Drawn 09/20/2016 2:34:15 PM Arterial Blood pH (Temp corrected) 7.237 *L Arterial Blood pCO2 (Temp correct) 56.8 H Arterial Blood pO2 (Temp corrected) 74.3 L Arterial Blood HCO3 23.6 Arterial Blood Base Excess -4.6 L Arterial Blood Oxygen Saturation 91.1 L Dilshad Test ACCEPTAB Arterial Blood Gas Puncture Site Right Radial Arterial Blood Carboxyhemoglobin 0.8 Arterial Blood Methemoglobin 0.4 Blood Gas A-a O2 Differential 109.2 H Oxyhemoglobin Percent 90.0 L Total Hemoglobin 14.4 Blood Gas Temperature 37.0 Blood Gas Actual Respiration Rate 28 Blood Gas Modality VENT - CPAP FiO2 35.0 Blood Gas Low PEEP Setting 5.0 Blood Gas Pressure Support 8 Blood Gas Critical Value Read Back DR. DUVAL Blood Gas Notified Whom Jd Blood Gas Notified Time 09/20/2016 2:50:25 PM Sodium Level 144 Potassium Level 3.3 L Chloride Level 113 H Carbon Dioxide Level 24 Anion Gap 10 # Blood Urea Nitrogen 16 Creatinine 0.76 Glucose Level 102 Calcium Level 9.3 Phosphorus Level 3.3 Magnesium Level 1.7 Total Bilirubin 0.8 Direct Bilirubin 0.00 Indirect Bilirubin 0.8 Aspartate Amino Transf (AST/SGOT) 53 H Alanine Aminotransferase (ALT/SGPT) 46 Alkaline Phosphatase 127 H Ammonia 56 H Total Protein 6.9 Albumin 3.4 Globulin 3.50 H Albumin/Globulin Ratio Pending Digoxin Level < 0.4 L White Blood Count 7.9 Red Blood Count 4.40 L Hemoglobin 12.7 L Hematocrit 39.2 L Mean Corpuscular Volume 89.1 Mean Corpuscular Hemoglobin 28.9 L Mean Corpuscular Hemoglobin Concent 32.4 Red Cell Distribution Width 14.7 H Platelet Count 151 Mean Platelet Volume 11.4 H Neutrophils % 72.4 Lymphocytes % 14.6 L Monocytes % 7.2 Eosinophils % 4.8 Basophils % 0.6 Nucleated Red Blood Cells % 0.0 Neutrophils # 5.7 Lymphocytes # 1.2 Monocytes # 0.6 Eosinophils # 0.4 Basophils # 0.1 Nucleated Red Blood Cells # 0.0 Medications Medications Current Medications Morphine Sulfate (morphine) 3 mg Q4H PRN IV PAIN; Start 08/31/16 at 01:00 Ondansetron HCl (Zofran Inj) 4 mg Q6H PRN IV NAUSEA AND/OR VOMITING Last administered on 09/18/16t 12:37; Admin Dose 4 MG; Start 08/31/16 at 02:00 Morphine Sulfate 2 mg 2 mg Q4H PRN IV PAIN LEVEL 7-10 Last administered on 09/14 09:45; Admin Dose 2 MG; Start 08/31/16 at 02:00 Propofol 100 ml @ 4.695 mls/ hr Q12H IV Last administered on 09/20/16 22:58; Admin Dose 8.451 MLS/HR; Start 09/07/16 at 13:30 Piperacillin Sod/ Tazobactam Sod 100 ml @ 200 mls/hr Q6 IVPB Last administered on 09/21/16 05:36; Admin Dose 200 MLS/HR; Start 09/07/16 at 16:00 Norepinephrine/ Dextrose (Levophed/D5W) 500 ml @ 1.87 mls/hr TITRATE IV Last administered on 09/15/16 06:19; Admin Dose 1.87 MLS/HR; Start 09/07/16 at 17:00 Acetazolamide (Diamox) 250 mg TID NGT Last administered on 09/20/16 20:39; Admin Dose 250 MG; Start 09/08/16 at 21:00 IV Flush (NS 10 ml) 10 ml PRN PRN IV IV PROTOCOL; Start 09/08/16 at 17:00 Potassium Chloride (Potassium Chloride Pwd/Soln) 20 meq BID NGT Last administered on 09/20/16 20:39; Admin Dose 20 MEQ; Start 09/11/16 at 21:00 Atorvastatin Calcium (Lipitor) 10 mg QHS NGT Last administered on 09/20/16 20: 39; Admin Dose 10 MG; Start 09/11/16 at 20:06 Digoxin (Digoxin) 0.125 mg DAILY@13 NGT Last administered on 09/20/16 13:35; Admin Dose 0.125 MG; Start 09/11/16 at 20:06 Famotidine (Pepcid) 20 mg BID NGT Last administered on 09/20/16 20:39; Admin Dose 20 MG; Start 09/11/16 at 20:06 Ferrous Sulfate (Feosol Liquid Cup) 300 mg DAILY NGT Last administered on 10:10; Admin Dose 300 MG; Start 09/12/16 at 09:00 Folic Acid (Folic Acid) 1 mg DAILY NGT Last administered on 09/20/16 10:09; Admin Dose 1 MG; Start 09/11/16 at 20:10 Losartan Potassium (Cozaar) 50 mg BID NGT ; Start 09/11/16 at 20:10; Status Future Hold Multivitamins Therapeutic (Theragran) 1 tab DAILY NGT Last administered on 10:09; Admin Dose 1 TAB; Start 09/11/16 at 20:11 Thiamine HCl (Vitamin B1) 100 mg DAILY NGT Last administered on 09/20/16 10:09 ; Admin Dose 100 MG; Start 09/11/16 at 20:11 Spironolactone (Aldactone) 50 mg DAILY NGT Last administered on 09/20/16 10:11 ; Admin Dose 50 MG; Start 09/12/16 at 09:00 Bisacodyl (Dulcolax Supp) 10 mg DAILY PRN [place] CONSTIPATION Last administered on 09/15/16 01:40; Admin Dose 10 MG; Start 09/14/16 at 09:00 Diltiazem HCl 60 mg 60 mg QID NGT Last administered on 09/20/16 17:34; Admin Dose 60 MG; Start 09/16/16 at 13:00 Phenylephrine HCl/ Dextrose (Jacinto-Syneph/D5W) 500 ml @ 75 mls/hr TITRATE IV ; Start 09/16/16 at 18:30 Lactulose (Enulose) 20 gm Q6 NGT Last administered on 09/21/16 05:36; Admin Dose 20 GM; Start 09/19/16 at 12:00 Apixaban (Eliquis) 2.5 mg BID PO Last administered on 09/20/16 20:40; Admin Dose 2.5 MG; Start 09/20/16 at 21:00 TRUDY HILTON NP Sep 21, 2016 08:25
[2016-09-21] MEDS ORDERED: POTASSIUM CHLORIDE 30 MEQ in DEXTROSE 5% 250 ML IVPB ONE (08:30)
[2016-09-21] MEDS: ALBUTEROL 18 GM INHALER INH SCH ×3 (08:36→19:05)
[2016-09-21] MEDS: FERROUS SULFATE 60 MG/ML 5ML CUP NGT SCH (08:57)
[2016-09-21] MEDS: FAMOTIDINE 20 MG TAB NGT SCH ×2 (08:58→21:49)
[2016-09-21] MEDS: ACETAZOLAMIDE 250 MG TAB NGT SCH ×3 (08:58→21:49)
[2016-09-21] MEDS: MULTIVITAMINS THERAPEUTIC TAB NGT SCH (08:58)
[2016-09-21] MEDS: APIXABAN 5 MG TABLET PO SCH ×2 (08:58→21:48)
[2016-09-21] MEDS: FOLIC ACID 1 MG TAB NGT SCH (08:58)
[2016-09-21] MEDS: POTASSIUM CHLORIDE 20 MEQ POWDER FOR ORAL SOLN NGT SCH ×2 (08:58→21:49)
[2016-09-21] MEDS: THIAMINE 100 MG TAB NGT SCH (08:58)
[2016-09-21] MEDS: SPIRONOLACTONE 50 MG TAB NGT SCH (08:58)
[2016-09-21] MEDS: DILTIAZEM 60 MG TAB NGT SCH ×4 (08:59→21:00)
--- NOTE | 2016-09-21 09:22 | RADRPT ---
PROCEDURE: XR Chest. CLINICAL INDICATION: Respiratory distress. TECHNIQUE: AP view of the chest was performed. COMPARISON: September 19, 2016 FINDINGS: The right PICC line, endotracheal tube, and nasogastric tube remain in good positioning. There is stable, mild fluid overload with cardiomegaly, vascular congestion, and trace bilateral ple ural effusions. Overall, there is no interval change. IMPRESSION: Support lines and tubes in good positioning. Stable, mild fluid overload. Overall, no interval salvador nge. RPTAT: QQ. .Jenn Nazario MD, MD Date Time Electronically viewed and signed by .Jenn Nazario MD, MD on 09/21/2016 09:21 .F/
[2016-09-21] MEDS: PROPOFOL 100 ML IV SCH ×2 (10:00→13:30)
--- NOTE | 2016-09-21 10:10 | CONS ---
Date/Time of Note Date/Time of Note DATE: 09/21/16 TIME: 10:08 Consult Date/Type/Reason Admit Date/Time Aug 30, 2016 at 23:34 Type of Consultation: Pulmonary/critical care Subjective Failed CPAP/PS trial yesterday. Sedated on propofol this am. Objective Vital Signs Date Time Temp Pulse Resp B/P Pulse Ox O2 Delivery O2 Flow Rate FiO2 09/21/16 08:12 35 09/21/16 08:00 84 09/21/16 08:00 19 98/60 96 Mechanical Ventilator 09/21/16 06:15 99.2 Intake and Output 09/20/16 09/20/16 09/21/16 15:00 23:00 07:00 Intake Total 406.0 ml 472.751 ml 636.340 ml Output Total 445 ml 365 ml 655 ml Balance -39.0 ml 107.751 ml -18.660 ml Exam HEENT: Neck supple; no JVD; no LAD, ET tube in place CVS: RRR, S1 and S2 CHEST: Clear ABD: Soft, NT, + BS, obese EXT: No c/c/ +++ edema Results/Medications Result Diagram: 09/21/16 0430 09/21/16 0400 Results 24 hrs Laboratory Tests Test 09/20/16 14:00 09/21/16 04:00 09/21/16 04:30 Blood Gas Specimen Source Blood arterial Arterial Blood Date Drawn 09/20/2016 2:34:15 PM Arterial Blood pH (Temp corrected) 7.237 *L Arterial Blood pCO2 (Temp correct) 56.8 H Arterial Blood pO2 (Temp corrected) 74.3 L Arterial Blood HCO3 23.6 Arterial Blood Base Excess -4.6 L Arterial Blood Oxygen Saturation 91.1 L Dilshad Test ACCEPTAB Arterial Blood Gas Puncture Site Right Radial Arterial Blood Carboxyhemoglobin 0.8 Arterial Blood Methemoglobin 0.4 Blood Gas A-a O2 Differential 109.2 H Oxyhemoglobin Percent 90.0 L Total Hemoglobin 14.4 Blood Gas Temperature 37.0 Blood Gas Actual Respiration Rate 28 Blood Gas Modality VENT - CPAP FiO2 35.0 Blood Gas Low PEEP Setting 5.0 Blood Gas Pressure Support 8 Blood Gas Critical Value Read Back DR. DUVAL Blood Gas Notified Whom Jd Blood Gas Notified Time 09/20/2016 2:50:25 PM Sodium Level 144 Potassium Level 3.3 L Chloride Level 113 H Carbon Dioxide Level 24 Anion Gap 10 # Blood Urea Nitrogen 16 Creatinine 0.76 Glucose Level 102 Calcium Level 9.3 Phosphorus Level 3.3 Magnesium Level 1.7 Total Bilirubin 0.8 Direct Bilirubin 0.00 Indirect Bilirubin 0.8 Aspartate Amino Transf (AST/SGOT) 53 H Alanine Aminotransferase (ALT/SGPT) 46 Alkaline Phosphatase 127 H Ammonia 56 H Total Protein 6.9 Albumin 3.4 Globulin 3.50 H Albumin/Globulin Ratio 0.97 Digoxin Level < 0.4 L White Blood Count 7.9 Red Blood Count 4.40 L Hemoglobin 12.7 L Hematocrit 39.2 L Mean Corpuscular Volume 89.1 Mean Corpuscular Hemoglobin 28.9 L Mean Corpuscular Hemoglobin Concent 32.4 Red Cell Distribution Width 14.7 H Platelet Count 151 Mean Platelet Volume 11.4 H Neutrophils % 72.4 Lymphocytes % 14.6 L Monocytes % 7.2 Eosinophils % 4.8 Basophils % 0.6 Nucleated Red Blood Cells % 0.0 Neutrophils # 5.7 Lymphocytes # 1.2 Monocytes # 0.6 Eosinophils # 0.4 Basophils # 0.1 Nucleated Red Blood Cells # 0.0 Medications Current Medications Morphine Sulfate (morphine) 3 mg Q4H PRN IV PAIN; Start 08/31/16 at 01:00 Ondansetron HCl (Zofran Inj) 4 mg Q6H PRN IV NAUSEA AND/OR VOMITING Last administered on 09/18/16 12:37; Admin Dose 4 MG; Start 08/31/16 at 02:00 Morphine Sulfate 2 mg 2 mg Q4H PRN IV PAIN LEVEL 7-10 Last administered on 09/14 09:45; Admin Dose 2 MG; Start 08/31/16 at 02:00 Propofol 100 ml @ 4.695 mls/ hr Q12H IV Last administered on 09/20/16 22:58; Admin Dose 8.451 MLS/HR; Start 09/07/16 at 13:30 Piperacillin Sod/ Tazobactam Sod 100 ml @ 200 mls/hr Q6 IVPB Last administered on 09/21/16 05:36; Admin Dose 200 MLS/HR; Start 09/07/16 at 16:00 Norepinephrine/ Dextrose (Levophed/D5W) 500 ml @ 1.87 mls/hr TITRATE IV Last administered on 09/15/16 06:19; Admin Dose 1.87 MLS/HR; Start 09/07/16 at 17:00 Acetazolamide (Diamox) 250 mg TID NGT Last administered on 09/21/16 08:58; Admin Dose 250 MG; Start 09/08/16 at 21:00 IV Flush (NS 10 ml) 10 ml PRN PRN IV IV PROTOCOL; Start 09/08/16 at 17:00 Potassium Chloride (Potassium Chloride Pwd/Soln) 20 meq BID NGT Last administered on 09/21/16 08:58; Admin Dose 20 MEQ; Start 09/11/16 at 21:00 Atorvastatin Calcium (Lipitor) 10 mg QHS NGT Last administered on 09/20/16 20: 39; Admin Dose 10 MG; Start 09/11/16 at 20:06 Digoxin (Digoxin) 0.125 mg DAILY@13 NGT Last administered on 09/20/16 13:35; Admin Dose 0.125 MG; Start 09/11/16 at 20:06 Famotidine (Pepcid) 20 mg BID NGT Last administered on 09/21/16 08:58; Admin Dose 20 MG; Start 09/11/16 at 20:06 Ferrous Sulfate (Feosol Liquid Cup) 300 mg DAILY NGT Last administered on 08:57; Admin Dose 300 MG; Start 09/12/16 at 09:00 Folic Acid (Folic Acid) 1 mg DAILY NGT Last administered on 09/21/16 08:58; Admin Dose 1 MG; Start 09/11/16 at 20:10 Losartan Potassium (Cozaar) 50 mg BID NGT ; Start 09/11/16 at 20:10; Status Future Hold Multivitamins Therapeutic (Theragran) 1 tab DAILY NGT Last administered on 08:58; Admin Dose 1 TAB; Start 09/11/16 at 20:11 Thiamine HCl (Vitamin B1) 100 mg DAILY NGT Last administered on 09/21/16 08:58 ; Admin Dose 100 MG; Start 09/11/16 at 20:11 Spironolactone (Aldactone) 50 mg DAILY NGT Last administered on 09/21/16 08:58 ; Admin Dose 50 MG; Start 09/12/16 at 09:00 Bisacodyl (Dulcolax Supp) 10 mg DAILY PRN [place] CONSTIPATION Last administered on 09/15/16 01:40; Admin Dose 10 MG; Start 09/14/16 at 09:00 Diltiazem HCl 60 mg 60 mg QID NGT Last administered on 09/21/16 08:59; Admin Dose 60 MG; Start 09/16/16 at 13:00 Phenylephrine HCl/ Dextrose (Jacinto-Syneph/D5W) 500 ml @ 75 mls/hr TITRATE IV ; Start 09/16/16 at 18:30 Lactulose (Enulose) 20 gm Q6 NGT Last administered on 09/21/16 05:36; Admin Dose 20 GM; Start 09/19/16 at 12:00 Apixaban 2.5 mg 2.5 mg BID PO Last administered on 09/21/16 08:58; Admin Dose 2.5 MG; Start 09/20/16 at 21:00 Potassium Chloride/Dextrose (KCl/D5W) 265 ml @ 88.333 mls/ hr ONCE ONCE IVPB Last administered on 09/21/16 09:33; Admin Dose 88.333 MLS/HR; Start 09/21/16 at 08:30; Stop 09/21/16 at 11:29 Assessment/Plan Additional Assessment/Plan IMP: 1. Acute on Chronic Hypercapnic Respiratory Failure 2. Vent Dependence 3. Atrial Fibrillation 4. OHS/LOTTIE 5. Encephalopathy RECS: 1. Will resume weaning efforts 2. Daily sedation holiday 3. More aggressive diuresis 4. Hold TFs after midnight 5. Increase lactulose 35 min CC time JEANETTE DUVAL MD Sep 21, 2016 10:10
--- NOTE | 2016-09-21 11:47 | PN ---
Date/Time of Note Date/Time of Note DATE: 09/21/16 TIME: 11:42 Assessment/Plan VTE Prophylaxis VTE Prophylaxis Intervention: other Lines/Catheters IV Catheter Type (from Nrs): PICC Line Central line still needed: Yes Urinary Cath still in place: Yes Reason Cath still needed: other (indicate) Assessment/Plan Chief Complaint/Hosp Course 1. Atrial fibrillation: chronic and is on HR control. 2. Chest pain has resolved. 3. Chronic obstructive pulmonary disease 4. Alcoholic liver disease. 5. Thrombocytopenia: improved now 6. Morbid obesity. 7. Hyponatremia. 8. Hypomagnesemia. 9. hypoxemic respiratory failure: intubated now 10. hematuria: stable 11. anemia RECOMMENDATIONS: Correct electrolytes including magnesium, KCL prn. respiratory care and vent support as per pulmonary. off of amiodarone, due to the fact that the patient is in chronic atrial fibrillation and has severe pulmonary disease, is best to control heart rate with other medications. The patient has had a stress test done last year, outpatient office Dr. Evans and that did not show any evidence of ischemia. cont digoxin to control the heart rate better. cont cardizem to control HR OFF of betablocker due to pulm disease. will cont eliquis to replace ASA as long as no bleeding . more than 37 minutes of critical care time was spent in management and treatment of this critically ill patient, excluding any procedures. Problems: Subjective 24 Hr Interval Summary Free Text/Dictation d/w staff and rhythm was reviewed. pt remains in AFIB. HR has remained mostly stable with short episodes of bradycardia. pt has failed CPAP and is still intubated on vent. nonverbal on vent now. Exam/Review of Systems Vital Signs Vitals Vital Signs Date Time Temp Pulse Resp B/P Pulse Ox O2 Delivery O2 Flow Rate FiO2 09/21/16 11:00 76 25 96 35 09/21/16 08:00 98/60 Mechanical Ventilator 09/21/16 06:15 99.2 Intake and Output 09/20/16 09/20/16 09/21/16 15:00 23:00 07:00 Intake Total 406.0 ml 472.751 ml 636.340 ml Output Total 445 ml 365 ml 655 ml Balance -39.0 ml 107.751 ml -18.660 ml Exam General: Patient is intubated on the vent in ICU. Obese. NO resp distress Respiratory:mild rhonchi heard anteriorly. GI : obese soft no rebound or guarding noted. Extremity + lower extremity edema neuro : Awake responds appropriately. pysch: Appear to be calm. Head: atraumatic, normocephalic Eyes: EOMI, nl conjunctiva Cardiovascular: irregular rhythm, systolic murmur Gastrointestinal: oft no rebound or guarding Results Result Diagram: 09/21/16 0430 09/21/16 0400 Results 24 hrs Laboratory Tests Test 09/20/16 14:00 09/21/16 04:00 09/21/16 04:30 Blood Gas Specimen Source Blood arterial Arterial Blood Date Drawn 09/20/2016 2:34:15 PM Arterial Blood pH (Temp corrected) 7.237 *L Arterial Blood pCO2 (Temp correct) 56.8 H Arterial Blood pO2 (Temp corrected) 74.3 L Arterial Blood HCO3 23.6 Arterial Blood Base Excess -4.6 L Arterial Blood Oxygen Saturation 91.1 L Dilshad Test ACCEPTAB Arterial Blood Gas Puncture Site Right Radial Arterial Blood Carboxyhemoglobin 0.8 Arterial Blood Methemoglobin 0.4 Blood Gas A-a O2 Differential 109.2 H Oxyhemoglobin Percent 90.0 L Total Hemoglobin 14.4 Blood Gas Temperature 37.0 Blood Gas Actual Respiration Rate 28 Blood Gas Modality VENT - CPAP FiO2 35.0 Blood Gas Low PEEP Setting 5.0 Blood Gas Pressure Support 8 Blood Gas Critical Value Read Back DR. DUVAL Blood Gas Notified Whom Jd Blood Gas Notified Time 09/20/2016 2:50:25 PM Sodium Level 144 Potassium Level 3.3 L Chloride Level 113 H Carbon Dioxide Level 24 Anion Gap 10 # Blood Urea Nitrogen 16 Creatinine 0.76 Glucose Level 102 Calcium Level 9.3 Phosphorus Level 3.3 Magnesium Level 1.7 Total Bilirubin 0.8 Direct Bilirubin 0.00 Indirect Bilirubin 0.8 Aspartate Amino Transf (AST/SGOT) 53 H Alanine Aminotransferase (ALT/SGPT) 46 Alkaline Phosphatase 127 H Ammonia 56 H Total Protein 6.9 Albumin 3.4 Globulin 3.50 H Albumin/Globulin Ratio 0.97 Digoxin Level < 0.4 L White Blood Count 7.9 Red Blood Count 4.40 L Hemoglobin 12.7 L Hematocrit 39.2 L Mean Corpuscular Volume 89.1 Mean Corpuscular Hemoglobin 28.9 L Mean Corpuscular Hemoglobin Concent 32.4 Red Cell Distribution Width 14.7 H Platelet Count 151 Mean Platelet Volume 11.4 H Neutrophils % 72.4 Lymphocytes % 14.6 L Monocytes % 7.2 Eosinophils % 4.8 Basophils % 0.6 Nucleated Red Blood Cells % 0.0 Neutrophils # 5.7 Lymphocytes # 1.2 Monocytes # 0.6 Eosinophils # 0.4 Basophils # 0.1 Nucleated Red Blood Cells # 0.0 Medications Medications Current Medications Morphine Sulfate (morphine) 3 mg Q4H PRN IV PAIN; Start 08/31/16 at 01:00 Ondansetron HCl (Zofran Inj) 4 mg Q6H PRN IV NAUSEA AND/OR VOMITING Last administered on 09/18/16 12:37; Admin Dose 4 MG; Start 08/31/16 at 02:00 Morphine Sulfate 2 mg 2 mg Q4H PRN IV PAIN LEVEL 7-10 Last administered on 09/14 09:45; Admin Dose 2 MG; Start 08/31/16 at 02:00 Propofol 100 ml @ 4.695 mls/ hr Q12H IV Last administered on 09/20/16 22:58; Admin Dose 8.451 MLS/HR; Start 09/07/16 at 13:30 Piperacillin Sod/ Tazobactam Sod 100 ml @ 200 mls/hr Q6 IVPB Last administered on 09/21/16 05:36; Admin Dose 200 MLS/HR; Start 09/07/16 at 16:00 Norepinephrine/ Dextrose (Levophed/D5W) 500 ml @ 1.87 mls/hr TITRATE IV Last administered on 09/15/16 06:19; Admin Dose 1.87 MLS/HR; Start 09/07/16 at 17:00 Acetazolamide (Diamox) 250 mg TID NGT Last administered on 09/21/16 08:58; Admin Dose 250 MG; Start 09/08/16 at 21:00 IV Flush (NS 10 ml) 10 ml PRN PRN IV IV PROTOCOL; Start 09/08/16 at 17:00 Potassium Chloride (Potassium Chloride Pwd/Soln) 20 meq BID NGT Last administered on 09/21/16 08:58; Admin Dose 20 MEQ; Start 09/11/16 at 21:00 Atorvastatin Calcium (Lipitor) 10 mg QHS NGT Last administered on 09/20/16 20: 39; Admin Dose 10 MG; Start 09/11/16 at 20:06 Digoxin (Digoxin) 0.125 mg DAILY@13 NGT Last administered on 09/20/16 13:35; Admin Dose 0.125 MG; Start 09/11/16 at 20:06 Famotidine (Pepcid) 20 mg BID NGT Last administered on 09/21/16 08:58; Admin Dose 20 MG; Start 09/11/16 at 20:06 Ferrous Sulfate (Feosol Liquid Cup) 300 mg DAILY NGT Last administered on 08:57; Admin Dose 300 MG; Start 09/12/16 at 09:00 Folic Acid (Folic Acid) 1 mg DAILY NGT Last administered on 09/21/16 08:58; Admin Dose 1 MG; Start 09/11/16 at 20:10 Losartan Potassium (Cozaar) 50 mg BID NGT ; Start 09/11/16 at 20:10; Status Future Hold Multivitamins Therapeutic (Theragran) 1 tab DAILY NGT Last administered on 08:58; Admin Dose 1 TAB; Start 09/11/16 at 20:11 Thiamine HCl (Vitamin B1) 100 mg DAILY NGT Last administered on 09/21/16 08:58 ; Admin Dose 100 MG; Start 09/11/16 at 20:11 Spironolactone (Aldactone) 50 mg DAILY NGT Last administered on 09/21/16 08:58 ; Admin Dose 50 MG; Start 09/12/16 at 09:00 Bisacodyl (Dulcolax Supp) 10 mg DAILY PRN [place] CONSTIPATION Last administered on 09/15/16 01:40; Admin Dose 10 MG; Start 09/14/16 at 09:00 Diltiazem HCl 60 mg 60 mg QID NGT Last administered on 09/21/16 08:59; Admin Dose 60 MG; Start 09/16/16 at 13:00 Phenylephrine HCl/ Dextrose (Jacinto-Syneph/D5W) 500 ml @ 75 mls/hr TITRATE IV ; Start 09/16/16 at 18:30 Lactulose (Enulose) 20 gm Q6 NGT Last administered on 09/21/16 05:36; Admin Dose 20 GM; Start 09/19/16 at 12:00 Apixaban (Eliquis) 2.5 mg BID PO Last administered on 09/21/16t 08:58; Admin Dose 2.5 MG; Start 09/20/16 at 21:00 TAL ABREU MD Sep 21, 2016 11:47
[2016-09-21] MEDS: DIGOXIN 0.125 MG TAB NGT SCH (12:52)
[2016-09-21] MEDS: FUROSEMIDE 20 MG INJ IV SCH ×2 (12:52→18:00)
[2016-09-21] MEDS ORDERED: MAGNESIUM SULFATE 3 GM in SOD CHLORIDE 0.9% 100 ML IVPB ONE (13:00)
[2016-09-21 14:50] LABS: AADO2 Arterial 112.4 mmHg (7.0-24.0); Allen Test ACCEPTAB; Arterial Base Excess -1.2 mmol/L (-3.0-3); Arterial COHb 0.8 % (0.0-3.0); Arterial HCO3 24.2 mmol/L (22.0-26.0); Arterial MetHb 0.3 % (0.0-1.5); Arterial Total Hemglobin 14.7 g/dl (12.0-18.0); MODE VENT - AC
[2016-09-21] MEDS: BISACODYL 10 MG SUPP PR PRN (15:18)
[2016-09-21] MEDS: ATORVASTATIN 10 MG TAB NGT SCH (21:48)
[2016-09-22] VITALS (80 sets, daily range): BP systolic 80–134; BP diastolic 55–94; PULSE 70–124; RESP 11–31
[2016-09-22] MEDS: PIPER-TAZO 3.375 GM IV (PMX) 100 ML IVPB SCH ×2 (00:33→05:12)
[2016-09-22] MEDS: LACTULOSE 30ML CUP NGT SCH ×5 (00:33→23:52)
[2016-09-22] MEDS: IPRATROPIUM (HFA) 12.9 GM INHALER INH SCH ×4 (01:03→19:29)
[2016-09-22] MEDS: PROPOFOL 100 ML IV SCH ×3 (05:04→21:20)
[2016-09-22] MEDS: FUROSEMIDE 20 MG INJ IV SCH ×2 (05:12→17:10)
[2016-09-22 05:42] LABS: BASOPHILS % 0.5 % (0.0-2.0); EOSINOPHILS # 0.5 10^3/ul (0.0-0.5); EOSINOPHILS % 6.2 % (0.0-7.0); HEMATOCRIT 38.4 % (42.0-52.0); HEMOGLOBIN 12.7 g/dl (14.0-18.0); LYMPHOCYTES # 1.1 10^3/ul (0.8-2.9); LYMPHOCYTES % 15.3 % (15.0-51.0); MEAN CORPUSCULAR HEMOGLOBIN 29.3 pg (29.0-33.0); MEAN CORPUSCULAR HGB CONC 33.1 g/dl (32.0-37.0); MEAN CORPUSCULAR VOLUME 88.7 fl (82.0-101.0); MEAN PLATELET VOLUME 11.3 fl (7.4-10.4); MONOCYTE # 0.7 10^3/ul (0.3-0.9); MONOCYTES % 8.9 % (0.0-11.0); NEUTROPHIL # 5.1 10^3/ul (1.6-7.5); NEUTROPHILS % 68.8 % (39.0-77.0); PLATELET COUNT 147 10^3/UL (140-415); RED BLOOD COUNT 4.33 10^6/ul (4.70-6.10); RED CELL DISTRIBUTION WIDTH 14.6 % (11.5-14.5); WHITE BLOOD COUNT 7.4 10^3/ul (4.8-10.8)
[2016-09-22 05:47] LABS: ADD SCAN DIFF NO
[2016-09-22 06:00] LABS: MAGNESIUM 1.9 mg/dl (1.7-2.5); PHOSPHORUS 3.7 mg/dl (2.5-4.9)
[2016-09-22 06:41] LABS: ALBUMIN 3.3 g/dl (3.3-4.9); ALBUMIN/GLOBULIN RATIO 0.97; BILIRUBIN,INDIRECT 0.8 mg/dl (0-1.1); BILIRUBIN,TOTAL 0.8 mg/dl (0.2-1.3); CALCIUM 9.1 mg/dl (8.4-10.2); CREATININE 0.72 mg/dl (0.61-1.24); POTASSIUM 3.4 mmol/L (3.5-5.1); TOTAL PROTEIN 6.7 g/dl (6.1-8.1)
[2016-09-22] MEDS: ALBUTEROL 18 GM INHALER INH SCH ×3 (07:22→19:28)
--- NOTE | 2016-09-22 08:19 | RADRPT ---
PROCEDURE: XR Chest 1 view. CLINICAL INDICATION: Shortness of breath TECHNIQUE: AP views of the chest was obtained. COMPARISON: Yesterday FINDINGS: The heart is large. Calcified atherosclerosis is noted in the aorta. Endotracheal and nasogastric t ubes are stable and appear in grossly appropriate location. Central pulmonary vascular congestion a nd interstitial prominence in both lungs is unchanged. Retrocardiac opacity is stable. Right lower lung infiltrates have mildly decreased. Mild residual combined small pleural effusion remains. Ri ght-sided PICC line is stable. The osseous structures are unchanged. IMPRESSION: Cardiomegaly with calcified atherosclerosis in the aorta. Stable central pulmonary vascular congestion and interstitial prominence in both lungs. Stable retrocardiac opacity that may reflect left lower lobe atelectasis or infiltrate combined with small pleural effusion. Interval decrease in right lower lung infiltrates. Mild residual combined with small pleural effusi on remains. RPTAT: AA .Philipp Becerra MD, MD Date Time Electronically viewed and signed by .Philipp Becerra MD, on 09/22/2016 08:19 .P/
[2016-09-22] MEDS: FERROUS SULFATE 60 MG/ML 5ML CUP NGT SCH (09:20)
[2016-09-22] MEDS: ACETAZOLAMIDE 250 MG TAB NGT SCH ×3 (09:20→20:29)
[2016-09-22] MEDS: FOLIC ACID 1 MG TAB NGT SCH (09:20)
[2016-09-22] MEDS: MULTIVITAMINS THERAPEUTIC TAB NGT SCH (09:20)
[2016-09-22] MEDS: APIXABAN 5 MG TABLET PO SCH ×2 (09:20→20:30)
[2016-09-22] MEDS: POTASSIUM CHLORIDE 20 MEQ POWDER FOR ORAL SOLN NGT SCH ×2 (09:20→20:29)
[2016-09-22] MEDS: SPIRONOLACTONE 50 MG TAB NGT SCH (09:20)
[2016-09-22] MEDS: THIAMINE 100 MG TAB NGT SCH (09:20)
[2016-09-22] MEDS: FAMOTIDINE 20 MG TAB NGT SCH ×2 (09:20→20:30)
[2016-09-22] MEDS: DILTIAZEM 60 MG TAB NGT SCH ×4 (09:21→20:30)
--- NOTE | 2016-09-22 09:31 | CONS ---
Date/Time of Note Date/Time of Note DATE: 09/22/16 TIME: 09:17 Consult Date/Type/Reason Admit Date/Time Aug 30, 2016 at 23:34 Initial Consult Date Type of Consultation: Pulmonary/critical care Subjective Patient remains somnolent on mechanical ventilation Failed CPAP weaning trial this morning secondary to increased work of breathing and increased respiratory distress and decreased tidal volumes Objective Vital Signs Date Time Temp Pulse Resp B/P Pulse Ox O2 Delivery O2 Flow Rate FiO2 09/22/16 08:00 124 09/22/16 07:00 27 130/94 97 Mechanical Ventilator 09/22/16 05:27 35 09/22/16 04:00 98.0 Intake and Output 09/21/16 09/21/16 09/22/16 15:00 23:00 07:00 Intake Total 502 ml 513 ml 289.086 ml Output Total 700 ml 720 ml 1260 ml Balance -198 ml -207 ml -970.914 ml Exam PHYSICAL EXAMINATION GENERAL: Chronically ill-appearing gentleman intubated on mechanical ventilation appears comfortable at rest VITAL SIGNS: see below. HEENT: Pupils equal, round, and reactive to light. CARDIAC: S1, S2, 1/6 systolic ejection murmur CHEST: Diminished air entry bilaterally. ABDOMEN: Mildly distended. Bowel sounds present no guarding or rebound EXTREMITIES: No cyanosis, clubbing edema +1 NEUROLOGIC: Generalized weakness Results/Medications Result Diagram: 09/22/16 0500 09/22/16 0500 Results 24 hrs Laboratory Tests Test 09/22/16 05:00 White Blood Count 7.4 Red Blood Count 4.33 L Hemoglobin 12.7 L Hematocrit 38.4 L Mean Corpuscular Volume 88.7 Mean Corpuscular Hemoglobin 29.3 Mean Corpuscular Hemoglobin Concent 33.1 Red Cell Distribution Width 14.6 H Platelet Count 147 Mean Platelet Volume 11.3 H Neutrophils % 68.8 Lymphocytes % 15.3 Monocytes % 8.9 Eosinophils % 6.2 Basophils % 0.5 Nucleated Red Blood Cells % 0.0 Neutrophils # 5.1 Lymphocytes # 1.1 Monocytes # 0.7 Eosinophils # 0.5 Basophils # 0.0 Nucleated Red Blood Cells # 0.0 Sodium Level 146 H Potassium Level 3.4 L Chloride Level 112 H Carbon Dioxide Level 24 Anion Gap 13 Blood Urea Nitrogen 14 Creatinine 0.72 Glucose Level 88 Calcium Level 9.1 Phosphorus Level 3.7 Magnesium Level 1.9 Total Bilirubin 0.8 Direct Bilirubin 0.00 Indirect Bilirubin 0.8 Aspartate Amino Transf (AST/SGOT) 39 Alanine Aminotransferase (ALT/SGPT) 47 Alkaline Phosphatase 122 H Ammonia 94 #H Total Protein 6.7 Albumin 3.3 Globulin 3.40 H Albumin/Globulin Ratio 0.97 Medications Current Medications Morphine Sulfate (morphine) 3 mg Q4H PRN IV PAIN; Start 08/31/16 at 01:00 Ondansetron HCl (Zofran Inj) 4 mg Q6H PRN IV NAUSEA AND/OR VOMITING Last administered on 09/18/16 12:37; Admin Dose 4 MG; Start 08/31/16 at 02:00 Morphine Sulfate 2 mg 2 mg Q4H PRN IV PAIN LEVEL 7-10 Last administered on 09/14 09:45; Admin Dose 2 MG; Start 08/31/16 at 02:00 Propofol 100 ml @ 4.695 mls/ hr Q12H IV Last administered on 09/22/16 05:04; Admin Dose 7.043 MLS/HR; Start 09/07/16 at 13:30 Piperacillin Sod/ Tazobactam Sod 100 ml @ 200 mls/hr Q6 IVPB Last administered on 09/22/16 05:12; Admin Dose 200 MLS/HR; Start 09/07/16 at 16:00 Norepinephrine/ Dextrose (Levophed/D5W) 500 ml @ 1.87 mls/hr TITRATE IV Last administered on 09/15/16 06:19; Admin Dose 1.87 MLS/HR; Start 09/07/16 at 17:00 Acetazolamide (Diamox) 250 mg TID NGT Last administered on 09/21/16 21:49; Admin Dose 250 MG; Start 09/08/16 at 21:00 IV Flush (NS 10 ml) 10 ml PRN PRN IV IV PROTOCOL; Start 09/08/16 at 17:00 Potassium Chloride (Potassium Chloride Pwd/Soln) 20 meq BID NGT Last administered on 09/21/16 21:49; Admin Dose 20 MEQ; Start 09/11/16 at 21:00 Atorvastatin Calcium (Lipitor) 10 mg QHS NGT Last administered on 09/21/16 21: 48; Admin Dose 10 MG; Start 09/11/16 at 20:06 Digoxin (Digoxin) 0.125 mg DAILY@13 NGT Last administered on 09/21/16 12:52; Admin Dose 0.125 MG; Start 09/11/16 at 20:06 Famotidine (Pepcid) 20 mg BID NGT Last administered on 09/21/16 21:49; Admin Dose 20 MG; Start 09/11/16 at 20:06 Ferrous Sulfate (Feosol Liquid Cup) 300 mg DAILY NGT Last administered on 08:57; Admin Dose 300 MG; Start 09/12/16 at 09:00 Folic Acid (Folic Acid) 1 mg DAILY NGT Last administered on 09/21/16 08:58; Admin Dose 1 MG; Start 09/11/16 at 20:10 Losartan Potassium (Cozaar) 50 mg BID NGT ; Start 09/11/16 at 20:10; Status Future Hold Multivitamins Therapeutic (Theragran) 1 tab DAILY NGT Last administered on 08:58; Admin Dose 1 TAB; Start 09/11/16 at 20:11 Thiamine HCl (Vitamin B1) 100 mg DAILY NGT Last administered on 09/21/16 08:58 ; Admin Dose 100 MG; Start 09/11/16 at 20:11 Spironolactone (Aldactone) 50 mg DAILY NGT Last administered on 09/21/16 08:58 ; Admin Dose 50 MG; Start 09/12/16 at 09:00 Bisacodyl (Dulcolax Supp) 10 mg DAILY PRN [place] CONSTIPATION Last administered on 09/21/16 15:18; Admin Dose 10 MG; Start 09/14/16 at 09:00 Diltiazem HCl 60 mg 60 mg QID NGT Last administered on 09/21/16 08:59; Admin Dose 60 MG; Start 09/16/16 at 13:00 Phenylephrine HCl/ Dextrose (Jacinto-Syneph/D5W) 500 ml @ 75 mls/hr TITRATE IV ; Start 09/16/16 at 18:30 Lactulose (Enulose) 20 gm Q6 NGT Last administered on 09/22/16 05:12; Admin Dose 20 GM; Start 09/19/16 at 12:00 Apixaban (Eliquis) 2.5 mg BID PO Last administered on 09/21/16t 21:48; Admin Dose 2.5 MG; Start 09/20/16 at 21:00 Assessment/Plan Chief Complaint/Hosp Course IMP: 1. Acute on Chronic Hypercapnic Respiratory Failure 2. Vent Dependence 3. Atrial Fibrillation 4. OHS/LOTTIE 5. Encephalopathy, likely exacerbated by elevated ammonia 6. Chronic liver disease history of EtOH RECS: 1. Continue CPAP trials 2. Daily sedation holiday 3. More aggressive diuresis 4. Continue nasogastric tube feeding 5. Continue lactulose 35 min CC time Problems: [facility] BOO [facility], [facility] Sep 22, 2016 09:28
--- NOTE | 2016-09-22 09:45 | PN ---
Date/Time of Note Date/Time of Note DATE: 09/22/16 TIME: 09:33 Assessment/Plan VTE Prophylaxis VTE Prophylaxis Intervention: other (Eliquis) Lines/Catheters IV Catheter Type (from Nrs): PICC Line Central line still needed: Yes Urinary Cath still in place: Yes Reason Cath still needed: urinary retention Assessment/Plan Chief Complaint/Hosp Course A/P: 56-year-old morbidly obese male with BMI of 54, with history of hypertension, decompensated alcoholic cirrhosis, anemia who was transferred from [facility] after he presented there with chest pain, not res failure, intubated. 1. Chest pain. Acute coronary syndrome ruled out. Troponins negative. - continue Dilt PO, Dig PO, IV Lasix for now, f/u CV rec's 2. Essential hypertension. Status post pressors for episode of hypotension. BP now improved - monitor, continue current antihypertensives 3. Chronic obstructive pulmonary disease. The patient on inhaled bronchodilators. - f/u Pulmonology rec's, Duoneb's 4. Acute respiratory failure. Acute on chronic. Hypoxic and hypercapnic.Pt intubated on 09/07/2016 because of worsening respiratory distress. Failed CPAP yesterday. - Ventilator management as per Pulmonary. 5. Atrial fibrillation. Rate controlled. On amiodarone. - continue PO Dilt and DIg, f/u CV rec's - continue Eliquis for stroke prophylaxis 6. Alcoholic liver disease. LFT's nL - monitor, continue diuretics. - continue lactulose because of underlying hyperammonemia, increase dose today 7. Thrombocytopenia. Most probably from acute alcoholic liver disease. Plt now stable - d/c Zosyn, monitor for any bleeding. 8. Hyponatremia. Resolved. S/P 1 dose of vasopressin antagonist on 2016. - monitor 9. Alcohol abuse. The patient's last drink was on the day prior to hospitalization. The patient will be maintained on daily thiamine. Status post Librium taper. 10. Possible aspiration with aspiration pneumonia. no fever, nL WBC, s/p Abx - will d/c abx, monitor 11. Acute on chronic CHF exacerbation. The patient's 2D echocardiogram showing ejection fraction of 55%. Diastolic dysfunction. - Continue diuretics if blood pressure allows. 12. Fluid, electrolytes and nutrition. NG tube feedings - but on hold sec to loose stools 13. Deep venous thrombosis prophylaxis - Eliquis 14. Gastrointestinal prophylaxis. H2 receptor blockers. Plan. Continue ICU monitoring. Careful diuresis. Replete potassium. Ventilator weaning as per Pulmonary. Critical care time: 45 minutes. On 09/18/2016, doctor had a long conversation with the patient's mother with the help of a hospice clinical supervisor regarding the patient's prognosis. The patient's mother was explained about the need for a tracheostomy if unable to wean the patient off the ventilator. Later, the patient's ex- was present in the patient's room. Talked to the patient's ex- in the presence of the patient' s mother after getting consent to talk to the patient's ex- from the mother. Patient's ex- was informed about the necessity for a tracheostomy and PEG tube placement if unable to wean the patient off the ventilator. The patient's mom and ex- verbalized understanding, and they agreed for proceeding with a tracheostomy and PEG tube placement if necessary. Problems: Subjective 24 Hr Interval Summary Free Text/Dictation Pt failed CPAP trial yesterday, still intubated. Tube feeds held as well sec to increased loose stools. Exam/Review of Systems Vital Signs Vitals Vital Signs Date Time Temp Pulse Resp B/P Pulse Ox O2 Delivery O2 Flow Rate FiO2 09/22/16 08:00 124 09/22/16 07:00 27 130/94 97 Mechanical Ventilator 09/22/16 05:27 35 09/22/16 04:00 98.0 Intake and Output 09/21/16 09/21/16 09/22/16 15:00 23:00 07:00 Intake Total 502 ml 513 ml 289.086 ml Output Total 700 ml 720 ml 1260 ml Balance -198 ml -207 ml -970.914 ml Exam GENERAL: This is a morbidly obese male patient lying in orally intubated. HEENT: Head normocephalic and atraumatic. Eyes: Anicteric sclerae. Conjunctivae clear. ENT: Nasal septum is midline. NGT in place. Oral mucosa is dry.Orally intubated. NECK: Short with increased neck circumference. RESPIRATORY: Bilaterally diminished breath sounds. Orally intubated. CARDIAC: Irregularly irregular rhythm. S1 and S2 heard. ABDOMEN: Obese. Bowel sounds hypoactive. EXTREMITIES: No cyanosis, no clubbing. Bilateral lower extremity 1+ pitting edema. Peripheral pulses are palpable. NEUROLOGIC: The patient is sedated. Results Result Diagram: 09/22/16 0500 09/22/16 0500 Results 24 hrs Laboratory Tests Test 09/22/16 05:00 White Blood Count 7.4 Red Blood Count 4.33 L Hemoglobin 12.7 L Hematocrit 38.4 L Mean Corpuscular Volume 88.7 Mean Corpuscular Hemoglobin 29.3 Mean Corpuscular Hemoglobin Concent 33.1 Red Cell Distribution Width 14.6 H Platelet Count 147 Mean Platelet Volume 11.3 H Neutrophils % 68.8 Lymphocytes % 15.3 Monocytes % 8.9 Eosinophils % 6.2 Basophils % 0.5 Nucleated Red Blood Cells % 0.0 Neutrophils # 5.1 Lymphocytes # 1.1 Monocytes # 0.7 Eosinophils # 0.5 Basophils # 0.0 Nucleated Red Blood Cells # 0.0 Sodium Level 146 H Potassium Level 3.4 L Chloride Level 112 H Carbon Dioxide Level 24 Anion Gap 13 Blood Urea Nitrogen 14 Creatinine 0.72 Glucose Level 88 Calcium Level 9.1 Phosphorus Level 3.7 Magnesium Level 1.9 Total Bilirubin 0.8 Direct Bilirubin 0.00 Indirect Bilirubin 0.8 Aspartate Amino Transf (AST/SGOT) 39 Alanine Aminotransferase (ALT/SGPT) 47 Alkaline Phosphatase 122 H Ammonia 94 #H Total Protein 6.7 Albumin 3.3 Globulin 3.40 H Albumin/Globulin Ratio 0.97 Medications Medications Current Medications Morphine Sulfate (morphine) 3 mg Q4H PRN IV PAIN; Start 08/31/16 at 01:00 Ondansetron HCl (Zofran Inj) 4 mg Q6H PRN IV NAUSEA AND/OR VOMITING Last administered on 09/18/16 12:37; Admin Dose 4 MG; Start 08/31/16 at 02:00 Morphine Sulfate 2 mg 2 mg Q4H PRN IV PAIN LEVEL 7-10 Last administered on 09/14 09:45; Admin Dose 2 MG; Start 08/31/16 at 02:00 Propofol 100 ml @ 4.695 mls/ hr Q12H IV Last administered on 09/22/16 05:04; Admin Dose 7.043 MLS/HR; Start 09/07/16 at 13:30 Piperacillin Sod/ Tazobactam Sod 100 ml @ 200 mls/hr Q6 IVPB Last administered on 09/22/16 05:12; Admin Dose 200 MLS/HR; Start 09/07/16 at 16:00 Norepinephrine/ Dextrose (Levophed/D5W) 500 ml @ 1.87 mls/hr TITRATE IV Last administered on 09/15/16 06:19; Admin Dose 1.87 MLS/HR; Start 09/07/16 at 17:00 Acetazolamide (Diamox) 250 mg TID NGT Last administered on 09/22/16 09:20; Admin Dose 250 MG; Start 09/08/16 at 21:00 IV Flush (NS 10 ml) 10 ml PRN PRN IV IV PROTOCOL; Start 09/08/16 at 17:00 Potassium Chloride (Potassium Chloride Pwd/Soln) 20 meq BID NGT Last administered on 09/22/16 09:20; Admin Dose 20 MEQ; Start 09/11/16 at 21:00 Atorvastatin Calcium (Lipitor) 10 mg QHS NGT Last administered on 09/21/16 21: 48; Admin Dose 10 MG; Start 09/11/16 at 20:06 Digoxin (Digoxin) 0.125 mg DAILY@13 NGT Last administered on 09/21/16 12:52; Admin Dose 0.125 MG; Start 09/11/16 at 20:06 Famotidine (Pepcid) 20 mg BID NGT Last administered on 09/22/16 09:20; Admin Dose 20 MG; Start 09/11/16 at 20:06 Ferrous Sulfate (Feosol Liquid Cup) 300 mg DAILY NGT Last administered on 09:20; Admin Dose 300 MG; Start 09/12/16 at 09:00 Folic Acid (Folic Acid) 1 mg DAILY NGT Last administered on 09/22/16 09:20; Admin Dose 1 MG; Start 09/11/16 at 20:10 Losartan Potassium (Cozaar) 50 mg BID NGT ; Start 09/11/16 at 20:10; Status Future Hold Multivitamins Therapeutic (Theragran) 1 tab DAILY NGT Last administered on 09:20; Admin Dose 1 TAB; Start 09/11/16 at 20:11 Thiamine HCl (Vitamin B1) 100 mg DAILY NGT Last administered on 09/22/16 09:20 ; Admin Dose 100 MG; Start 09/11/16 at 20:11 Spironolactone (Aldactone) 50 mg DAILY NGT Last administered on 09/22/16 09:20 ; Admin Dose 50 MG; Start 09/12/16 at 09:00 Bisacodyl (Dulcolax Supp) [address] CONSTIPATION Last administered on 09/21/16 15:18; Admin Dose 10 MG; Start 09/14/16 at 09:00 Diltiazem HCl 60 mg 60 mg QID NGT Last administered on 09/22/16 09:21; Admin Dose 60 MG; Start 09/16/16 at 13:00 Phenylephrine HCl/ Dextrose (Jacinto-Syneph/D5W) 500 ml @ 75 mls/hr TITRATE IV ; Start 09/16/16 at 18:30 Apixaban (Eliquis) 2.5 mg BID PO Last administered on 09/22/16 09:20; Admin Dose 2.5 MG; Start 09/20/16 at 21:00 Lactulose (Enulose) 30 gm Q6 NGT ; Start 09/22/16 at 12:00 SONI SUTTON Sep 22, 2016 09:45
[2016-09-22] MEDS ORDERED: LOPERAMIDE 2 MG CAP PO PRN (10:00)
[2016-09-22 11:21] LABS: HAAIG REFLEX REFLEX FILED
[2016-09-22] MEDS: DIGOXIN 0.125 MG TAB NGT SCH (12:20)
--- NOTE | 2016-09-22 15:12 | PN ---
Date/Time of Note Date/Time of Note DATE: 09/22/16 TIME: 15:07 Assessment/Plan VTE Prophylaxis VTE Prophylaxis Intervention: other Lines/Catheters IV Catheter Type (from Nrs): PICC Line Central line still needed: Yes Urinary Cath still in place: Yes Reason Cath still needed: other (indicate) Assessment/Plan Chief Complaint/Hosp Course 1. Atrial fibrillation: chronic and is on HR control. 2. Chest pain has resolved. 3. Chronic obstructive pulmonary disease 4. Alcoholic liver disease. 5. Thrombocytopenia: improved now 6. Morbid obesity. 7. Hyponatremia. 8. Hypomagnesemia. 9. hypoxemic respiratory failure: intubated now 10. hematuria: stable 11. anemia RECOMMENDATIONS: Correct electrolytes including magnesium, KCL prn. respiratory care and vent support as per pulmonary. aggressive suctioning. off of amiodarone, due to the fact that the patient is in chronic atrial fibrillation and has severe pulmonary disease, is best to control heart rate with other medications. The patient has had a stress test done last year, outpatient office Dr. Evans and that did not show any evidence of ischemia. cont digoxin to control the heart rate better. cont cardizem to control HR OFF of betablocker due to pulm disease. will cont eliquis to replace ASA as long as no bleeding . aldaconte diuresis as tolerated. more than 39 minutes of critical care time was spent in management and treatment of this critically ill patient, excluding any procedures. Problems: Subjective 24 Hr Interval Summary Free Text/Dictation d.w staff and rhythm was reviewed pt remains intubated on vent in ICU. failed CPAP pt remains in afib. HR has been stable. nonverbal pt with large sputum Exam/Review of Systems Vital Signs Vitals Vital Signs Date Time Temp Pulse Resp B/P Pulse Ox O2 Delivery O2 Flow Rate FiO2 09/22/16 12:45 91 24 95 35 09/22/16 12:15 103/75 Mechanical Ventilator 09/22/16 12:00 98.1 Intake and Output 09/21/16 09/21/16 09/22/16 15:00 23:00 07:00 Intake Total 502 ml 513 ml 289.086 ml Output Total 700 ml 720 ml 1260 ml Balance -198 ml -207 ml -970.914 ml Exam General: Patient is intubated on the vent in ICU. Obese. NO resp distress Respiratory:mild rhonchi heard anteriorly. GI : obese soft no rebound or guarding noted. Extremity + lower extremity edema neuro : sedated. pysch: Appear to be calm. Head: atraumatic, normocephalic Eyes: EOMI, nl conjunctiva Cardiovascular: irregular rhythm, systolic murmur Gastrointestinal: oft no rebound or guarding Results Result Diagram: 09/22/16 0500 09/22/16 0500 Results 24 hrs Laboratory Tests Test 09/22/16 05:00 09/22/16 11:15 White Blood Count 7.4 Red Blood Count 4.33 L Hemoglobin 12.7 L Hematocrit 38.4 L Mean Corpuscular Volume 88.7 Mean Corpuscular Hemoglobin 29.3 Mean Corpuscular Hemoglobin Concent 33.1 Red Cell Distribution Width 14.6 H Platelet Count 147 Mean Platelet Volume 11.3 H Neutrophils % 68.8 Lymphocytes % 15.3 Monocytes % 8.9 Eosinophils % 6.2 Basophils % 0.5 Nucleated Red Blood Cells % 0.0 Neutrophils # 5.1 Lymphocytes # 1.1 Monocytes # 0.7 Eosinophils # 0.5 Basophils # 0.0 Nucleated Red Blood Cells # 0.0 Sodium Level 146 H Potassium Level 3.4 L Chloride Level 112 H Carbon Dioxide Level 24 Anion Gap 13 Blood Urea Nitrogen 14 Creatinine 0.72 Glucose Level 88 Calcium Level 9.1 Phosphorus Level 3.7 Magnesium Level 1.9 Total Bilirubin 0.8 Direct Bilirubin 0.00 Indirect Bilirubin 0.8 Aspartate Amino Transf (AST/SGOT) 39 Alanine Aminotransferase (ALT/SGPT) 47 Alkaline Phosphatase 122 H Ammonia 94 #H Total Protein 6.7 Albumin 3.3 Globulin 3.40 H Albumin/Globulin Ratio 0.97 Hepatitis B Surface Antigen POSITIVE H Hepatitis B Core Total Antibody Pending Hepatitis C Antibody NEGATIVE Medications Medications Current Medications Morphine Sulfate (morphine) 3 mg Q4H PRN IV PAIN; Start 08/31/16 at 01:00 Ondansetron HCl (Zofran Inj) 4 mg Q6H PRN IV NAUSEA AND/OR VOMITING Last administered on 09/18/16 12:37; Admin Dose 4 MG; Start 08/31/16 at 02:00 Morphine Sulfate 2 mg 2 mg Q4H PRN IV PAIN LEVEL 7-10 Last administered on 09/14 09:45; Admin Dose 2 MG; Start 08/31/16 at 02:00 Propofol 100 ml @ 4.695 mls/ hr Q12H IV Last administered on 09/22/16 11:02; Admin Dose 9.39 MLS/HR; Start 09/07/16 at 13:30 Norepinephrine/ Dextrose (Levophed/D5W) 500 ml @ 1.87 mls/hr TITRATE IV Last administered on 09/15/16 06:19; Admin Dose 1.87 MLS/HR; Start 09/07/16 at 17:00 Acetazolamide (Diamox) 250 mg TID NGT Last administered on 09/22/16 12:20; Admin Dose 250 MG; Start 09/08/16 at 21:00 IV Flush (NS 10 ml) 10 ml PRN PRN IV IV PROTOCOL; Start 09/08/16 at 17:00 Potassium Chloride (Potassium Chloride Pwd/Soln) 20 meq BID NGT Last administered on 09/22/16 09:20; Admin Dose 20 MEQ; Start 09/11/16 at 21:00 Atorvastatin Calcium (Lipitor) 10 mg QHS NGT Last administered on 09/21/16 21: 48; Admin Dose 10 MG; Start 09/11/16 at 20:06 Digoxin (Digoxin) 0.125 mg DAILY@13 NGT Last administered on 09/22/16 12:20; Admin Dose 0.125 MG; Start 09/11/16 at 20:06 Famotidine (Pepcid) 20 mg BID NGT Last administered on 09/22/16 09:20; Admin Dose 20 MG; Start 09/11/16 at 20:06 Ferrous Sulfate (Feosol Liquid Cup) 300 mg DAILY NGT Last administered on 09:20; Admin Dose 300 MG; Start 09/12/16 at 09:00 Folic Acid (Folic Acid) 1 mg DAILY NGT Last administered on 09/22/16 09:20; Admin Dose 1 MG; Start 09/11/16 at 20:10 Losartan Potassium (Cozaar) 50 mg BID NGT ; Start 09/11/16 at 20:10; Status Future Hold Multivitamins Therapeutic (Theragran) 1 tab DAILY NGT Last administered on 09:20; Admin Dose 1 TAB; Start 09/11/16 at 20:11 Thiamine HCl (Vitamin B1) 100 mg DAILY NGT Last administered on 09/22/16 09:20 ; Admin Dose 100 MG; Start 09/11/16 at 20:11 Spironolactone (Aldactone) 50 mg DAILY NGT Last administered on 09/22/16 09:20 ; Admin Dose 50 MG; Start 09/12/16 at 09:00 Bisacodyl (Dulcolax Supp) 10 mg DAILY PRN [place] CONSTIPATION Last administered on 09/21/16 15:18; Admin Dose 10 MG; Start 09/14/16 at 09:00 Diltiazem HCl 60 mg 60 mg QID NGT Last administered on 09/22/16 12:19; Admin Dose 60 MG; Start 09/16/16 at 13:00 Phenylephrine HCl/ Dextrose (Jacinto-Syneph/D5W) 500 ml @ 75 mls/hr TITRATE IV ; Start 09/16/16 at 18:30 Apixaban (Eliquis) 2.5 mg BID PO Last administered on 09/22/16 09:20; Admin Dose 2.5 MG; Start 09/20/16 at 21:00 Lactulose (Enulose) 30 gm Q6 NGT Last administered on 09/22/16 12:17; Admin Dose 30 GM; Start 09/22/16 at 12:00 Loperamide HCl (Imodium Cap) 2 mg QID PRN PO DIARRHEA; Start 09/22/16 at 10:00 TAL ABREU MD Sep 22, 2016 15:11
[2016-09-22 17:30] LABS: HEPATITIS B CORE ANTIBODY NEGATIVE (NEGATIVE)
[2016-09-22] MEDS: ATORVASTATIN 10 MG TAB NGT SCH (20:30)
[2016-09-23] VITALS (42 sets, daily range): BP systolic 90–134; BP diastolic 57–84; PULSE 81–116; RESP 13–38
[2016-09-23] MEDS: IPRATROPIUM (HFA) 12.9 GM INHALER INH SCH ×4 (01:52→19:42)
[2016-09-23 04:12] LABS: ADD SCAN DIFF NO
[2016-09-23 04:27] LABS: BASOPHIL # 0.1 10^3/ul (0.0-0.1); BASOPHILS % 0.7 % (0.0-2.0); EOSINOPHILS # 0.6 10^3/ul (0.0-0.5); EOSINOPHILS % 6.8 % (0.0-7.0); HEMATOCRIT 38.3 % (42.0-52.0); LYMPHOCYTES # 1.5 10^3/ul (0.8-2.9); LYMPHOCYTES % 18.1 % (15.0-51.0); MEAN CORPUSCULAR HGB CONC 33.9 g/dl (32.0-37.0); MEAN CORPUSCULAR VOLUME 88.2 fl (82.0-101.0); MEAN PLATELET VOLUME 11.3 fl (7.4-10.4); MONOCYTE # 0.8 10^3/ul (0.3-0.9); MONOCYTES % 9.5 % (0.0-11.0); NEUTROPHIL # 5.2 10^3/ul (1.6-7.5); NEUTROPHILS % 64.8 % (39.0-77.0); PLATELET COUNT 171 10^3/UL (140-415); RED BLOOD COUNT 4.34 10^6/ul (4.70-6.10); RED CELL DISTRIBUTION WIDTH 14.4 % (11.5-14.5)
[2016-09-23 04:32] LABS: CALCIUM 9.6 mg/dl (8.4-10.2); CREATININE 0.71 mg/dl (0.61-1.24); POTASSIUM 3.5 mmol/L (3.5-5.1)
[2016-09-23 04:33] LABS: MAGNESIUM 1.8 mg/dl (1.7-2.5); PHOSPHORUS 4.1 mg/dl (2.5-4.9)
[2016-09-23] MEDS: PROPOFOL 100 ML IV SCH ×3 (05:55→23:45)
[2016-09-23] MEDS: FUROSEMIDE 20 MG INJ IV SCH (05:56)
[2016-09-23] MEDS: LACTULOSE 30ML CUP NGT SCH ×4 (05:56→23:44)
[2016-09-23] MEDS: ALBUTEROL 18 GM INHALER INH SCH ×3 (07:47→19:42)
--- NOTE | 2016-09-23 08:55 | RADRPT ---
PROCEDURE: XR Chest. CLINICAL INDICATION: Respiratory failure TECHNIQUE: An AP view of the chest was obtained. COMPARISON: Chest x-ray dated 09/22/2016 FINDINGS: The endotracheal tube tip is approximately 3.0 cm above the amber. The tip of the enteric tube ex tends below the left diaphragm. There is a right upper extremity PICC line with tip in the mid SVC Lung volumes are low. There is prominence of the interstitial and central pulmonary vascular mell ngs with small bilateral pleural effusions. There is consolidation of the left lower lobe. No pneum othorax is seen. The cardiomediastinal silhouette is mildly enlarged . Calcifications are seen wit hin the aortic arch. The osseous structures demonstrate senescent changes. IMPRESSION: 1. Low lung volumes with pulmonary vascular congestion with small bilateral pleural effusions. No significant interval change. 2. Left basilar atelectasis versus pneumonia, also unchanged. 3. Mild cardiomegaly and aortic atherosclerosis. 4. Tubes and lines, as described above. RPTAT: HH .Geeta Escoto MD, Date Time Electronically viewed and signed by .Geeta Escoto MD, MD on 09/23/2016 08:54 .G/
[2016-09-23] MEDS ORDERED: FUROSEMIDE 40 MG INJ IV ONE (09:00)
--- NOTE | 2016-09-23 09:05 | PN ---
Date/Time of Note Date/Time of Note DATE: 09/23/16 TIME: 08:58 Assessment/Plan VTE Prophylaxis VTE Prophylaxis Intervention: other (Eliquis) Lines/Catheters IV Catheter Type (from [facility]): PICC Line Central line still needed: Yes Urinary Cath still in place: Yes Reason Cath still needed: urinary retention Assessment/Plan Chief Complaint/Hosp Course A/P: 56-year-old morbidly obese male with BMI of 54, with history of hypertension, decompensated alcoholic cirrhosis, anemia who was transferred from [facility] [place] after he presented there with chest pain, now res failure, intubated. 1. Acute respiratory failure. Acute on chronic. Hypoxic and hypercapnic. Pt intubated on 09/07/2016 because of worsening respiratory distress. Failed CPAP 2 days ago. - Ventilator management as per Pulmonary. 2. Essential hypertension. Status post pressors for episode of hypotension. BP now improved - monitor, continue current antihypertensives 3. Chronic obstructive pulmonary disease. The patient on inhaled bronchodilators. - f/u Pulmonology rec's, Duoneb's 4. Chest pain. Acute coronary syndrome ruled out. Troponins negative. - continue Dilt PO, Dig PO, IV Lasix for now, f/u CV rec's 5. Atrial fibrillation. Rate controlled. On amiodarone. - continue PO Dilt and DIg, f/u CV rec's - continue Eliquis for stroke prophylaxis 6. Alcoholic liver disease. LFT's nL, bt ammonia still elevated (94 -> 88) - monitor, continue diuretics. - continue lactulose because of underlying hyperammonemia, increase dose today again 7. Thrombocytopenia. Most probably from acute alcoholic liver disease. Plt now stable - have d/c'ed Zosyn, monitor for any bleeding. 8. Hyponatremia. Resolved. S/P 1 dose of vasopressin antagonist on 2016. - monitor 9. Alcohol abuse. The patient's last drink was on the day prior to hospitalization. The patient will be maintained on daily thiamine. Status post Librium taper. 10. Possible aspiration with aspiration pneumonia. no fever, nL WBC, s/p Abx - have d/c'ed abx, monitor 11. Acute on chronic CHF exacerbation. The patient's 2D echocardiogram showing ejection fraction of 55%. Diastolic dysfunction. - Continue diuretics if blood pressure allows. 12. Fluid, electrolytes and nutrition. NG tube feedings - but on hold sec to loose stools - cdiff = neg 13. Deep venous thrombosis prophylaxis - Eliquis 14. Gastrointestinal prophylaxis. H2 receptor blockers. Plan. Continue ICU monitoring. Careful diuresis. Replete potassium. Ventilator weaning as per Pulmonary. Critical care time: 40 minutes. On 09/18/2016, doctor had a long conversation with the patient's mother with the help of a automobile club membership sales agent regarding the patient's prognosis. The patient's mother was explained about the need for a tracheostomy if unable to wean the patient off the ventilator. Later, the patient's ex- was present in the patient's room. Talked to the patient's ex- in the presence of the patient' s mother after getting consent to talk to the patient's ex- from the mother. Patient's ex- was informed about the necessity for a tracheostomy and PEG tube placement if unable to wean the patient off the ventilator. The patient's mom and ex- verbalized understanding, and they agreed for proceeding with a tracheostomy and PEG tube placement if necessary. Will follow up with cycle consultant teams on this. Problems: Subjective 24 Hr Interval Summary Free Text/Dictation Pt still intubated. Per nursing, lasix held in AM sec to low bp. Exam/Review of Systems Vital Signs Vitals Vital Signs Date Time Temp Pulse Resp B/P Pulse Ox O2 Delivery O2 Flow Rate FiO2 09/23/16 05:07 89 20 97 35 09/23/16 03:30 99/58 Mechanical Ventilator 09/23/16 00:00 99.8 Intake and Output 09/22/16 09/22/16 09/23/16 15:00 23:00 07:00 Intake Total 81.129 ml 463.072 ml 418.876 ml Output Total 875 ml 885 ml 275 ml Balance -793.871 ml -421.928 ml 143.876 ml Exam GENERAL:obese male patient lying in orally intubated. HEENT: Head normocephalic and atraumatic. Eyes: Anicteric sclerae. Conjunctivae clear. ENT: Nasal septum is midline. NGT in place. Orally intubated. NECK: Short with increased neck circumference. RESPIRATORY: some bilaterally diminished breath sounds. CARDIAC: Irregularly irregular rhythm. S1 and S2 heard. ABDOMEN: Obese. Bowel sounds hypoactive. EXTREMITIES: No cyanosis, no clubbing. Bilateral lower extremity 1+ pitting edema. Peripheral pulses are palpable. NEUROLOGIC: The patient is sedated. Results Result Diagram: 09/23/16 0400 09/23/16 0400 Results 24 hrs Laboratory Tests Test 09/22/16 11:15 09/23/16 04:00 Hepatitis B Surface Antigen POSITIVE H Hepatitis B Surface Antibody INDETERMINATE Hepatitis B Core Total Antibody NEGATIVE Hepatitis C Antibody NEGATIVE White Blood Count 8.0 Red Blood Count 4.34 L Hemoglobin 13.0 L Hematocrit 38.3 L Mean Corpuscular Volume 88.2 Mean Corpuscular Hemoglobin 30.0 Mean Corpuscular Hemoglobin Concent 33.9 Red Cell Distribution Width 14.4 Platelet Count 171 Mean Platelet Volume 11.3 H Neutrophils % 64.8 Lymphocytes % 18.1 Monocytes % 9.5 Eosinophils % 6.8 Basophils % 0.7 Nucleated Red Blood Cells % 0.0 Neutrophils # 5.2 Lymphocytes # 1.5 Monocytes # 0.8 Eosinophils # 0.6 H Basophils # 0.1 Nucleated Red Blood Cells # 0.0 Sodium Level 146 H Potassium Level 3.5 Chloride Level 109 Carbon Dioxide Level 25 Anion Gap 16 Blood Urea Nitrogen 18 Creatinine 0.71 Glucose Level 102 Calcium Level 9.6 Phosphorus Level 4.1 Magnesium Level 1.8 Ammonia 86 H Medications Medications Current Medications Morphine Sulfate (morphine) 3 mg Q4H PRN IV PAIN; Start 08/31/16 at 01:00 Ondansetron HCl (Zofran Inj) 4 mg Q6H PRN IV NAUSEA AND/OR VOMITING Last administered on 09/18/16 12:37; Admin Dose 4 MG; Start 08/31/16 at 02:00 Morphine Sulfate 2 mg 2 mg Q4H PRN IV PAIN LEVEL 7-10 Last administered on 09/14 09:45; Admin Dose 2 MG; Start 08/31/16 at 02:00 Propofol 100 ml @ 4.695 mls/ hr Q12H IV Last administered on 09/23/16 05:55; Admin Dose 11.268 MLS/HR; Start 09/07/16 at 13:30 Norepinephrine/ Dextrose (Levophed/D5W) 500 ml @ 1.87 mls/hr TITRATE IV Last administered on 09/15/16 06:19; Admin Dose 1.87 MLS/HR; Start 09/07/16 at 17:00 Acetazolamide (Diamox) 250 mg TID NGT Last administered on 09/22/16 20:29; Admin Dose 250 MG; Start 09/08/16 at 21:00 IV Flush (NS 10 ml) 10 ml PRN PRN IV IV PROTOCOL; Start 09/08/16 at 17:00 Potassium Chloride (Potassium Chloride Pwd/Soln) 20 meq BID NGT Last administered on 09/22/16 20:29; Admin Dose 20 MEQ; Start 09/11/16 at 21:00 Atorvastatin Calcium (Lipitor) 10 mg QHS NGT Last administered on 09/22/16 20: 30; Admin Dose 10 MG; Start 09/11/16 at 20:06 Digoxin (Digoxin) 0.125 mg DAILY@13 NGT Last administered on 09/22/16 12:20; Admin Dose 0.125 MG; Start 09/11/16 at 20:06 Famotidine (Pepcid) 20 mg BID NGT Last administered on 09/22/16 20:30; Admin Dose 20 MG; Start 09/11/16 at 20:06 Ferrous Sulfate (Feosol Liquid Cup) 300 mg DAILY NGT Last administered on 09:20; Admin Dose 300 MG; Start 09/12/16 at 09:00 Folic Acid (Folic Acid) 1 mg DAILY NGT Last administered on 09/22/16 09:20; Admin Dose 1 MG; Start 09/11/16 at 20:10 Losartan Potassium (Cozaar) 50 mg BID NGT ; Start 09/11/16 at 20:10; Status Future Hold Multivitamins Therapeutic (Theragran) 1 tab DAILY NGT Last administered on 09:20; Admin Dose 1 TAB; Start 09/11/16 at 20:11 Thiamine HCl (Vitamin B1) 100 mg DAILY NGT Last administered on 09/22/16 09:20 ; Admin Dose 100 MG; Start 09/11/16 at 20:11 Spironolactone (Aldactone) 50 mg DAILY NGT Last administered on 09/22/16 09:20 ; Admin Dose 50 MG; Start 09/12/16 at 09:00 Bisacodyl (Dulcolax Supp) 10 mg DAILY PRN [place] CONSTIPATION Last administered on 09/21/16 15:18; Admin Dose 10 MG; Start 09/14/16 at 09:00 Diltiazem HCl 60 mg 60 mg QID NGT Last administered on 09/22/16 20:30; Admin Dose 60 MG; Start 09/16/16 at 13:00 Phenylephrine HCl/ Dextrose (Jacinto-Syneph/D5W) 500 ml @ 75 mls/hr TITRATE IV ; Start 09/16/16 at 18:30 Apixaban (Eliquis) 2.5 mg BID PO Last administered on 09/22/16 20:30; Admin Dose 2.5 MG; Start 09/20/16 at 21:00 Lactulose (Enulose) 30 gm Q6 NGT Last administered on 09/23/16 05:56; Admin Dose 30 GM; Start 09/22/16 at 12:00 Loperamide HCl (Imodium Cap) 2 mg QID PRN PO DIARRHEA Last administered on 16:00; Admin Dose 2 MG; Start 09/22/16 at 10:00 SONI SUTTON Sep 23, 2016 09:05
[2016-09-23] MEDS: POTASSIUM CHLORIDE 20 MEQ POWDER FOR ORAL SOLN NGT SCH ×2 (09:20→20:36)
[2016-09-23] MEDS: FERROUS SULFATE 60 MG/ML 5ML CUP NGT SCH (09:20)
[2016-09-23] MEDS: MULTIVITAMINS THERAPEUTIC TAB NGT SCH (09:20)
[2016-09-23] MEDS: FOLIC ACID 1 MG TAB NGT SCH (09:20)
[2016-09-23] MEDS: APIXABAN 5 MG TABLET PO SCH ×2 (09:20→20:37)
[2016-09-23] MEDS: THIAMINE 100 MG TAB NGT SCH (09:20)
[2016-09-23] MEDS: FAMOTIDINE 20 MG TAB NGT SCH ×2 (09:20→20:36)
[2016-09-23] MEDS: DILTIAZEM 60 MG TAB NGT SCH ×4 (09:21→20:37)
[2016-09-23] MEDS: ACETAZOLAMIDE 250 MG TAB NGT SCH ×3 (09:21→20:36)
--- NOTE | 2016-09-23 10:11 | CONS ---
Date/Time of Note Date/Time of Note DATE: 09/23/16 TIME: 10:09 Consult Date/Type/Reason Admit Date/Time Aug 30, 2016 at 23:34 Type of Consultation: Pulmonary/critical care Subjective Patient little more alert this morning continues mechanical ventilation. Minimal secretions. Appears neurologically intact. Objective Vital Signs Date Time Temp Pulse Resp B/P Pulse Ox O2 Delivery O2 Flow Rate FiO2 09/23/16 08:00 81 09/23/16 05:07 20 97 35 09/23/16 03:30 99/58 Mechanical Ventilator 09/23/16 00:00 99.8 Intake and Output 09/22/16 09/22/16 09/23/16 15:00 23:00 07:00 Intake Total 81.129 ml 463.072 ml 418.876 ml Output Total 875 ml 885 ml 275 ml Balance -793.871 ml -421.928 ml 143.876 ml Exam PHYSICAL EXAMINATION GENERAL: Chronically ill-appearing gentleman intubated on mechanical ventilation opens eyes comfortable VITAL SIGNS: see below. HEENT: Pupils equal, round, and reactive to light. CARDIAC: S1, S2, 1/6 systolic ejection murmur CHEST: Diminished air entry bilaterally. ABDOMEN: Mildly distended. Bowel sounds present no guarding or rebound obese. EXTREMITIES: No cyanosis, clubbing edema +1 NEUROLOGIC: Generalized weakness Results/Medications Result Diagram: 09/23/16 0400 09/23/16 0400 Results 24 hrs Laboratory Tests Test 09/22/16 11:15 09/23/16 04:00 Hepatitis B Surface Antigen POSITIVE H Hepatitis B Surface Antibody INDETERMINATE Hepatitis B Core Total Antibody NEGATIVE Hepatitis C Antibody NEGATIVE White Blood Count 8.0 Red Blood Count 4.34 L Hemoglobin 13.0 L Hematocrit 38.3 L Mean Corpuscular Volume 88.2 Mean Corpuscular Hemoglobin 30.0 Mean Corpuscular Hemoglobin Concent 33.9 Red Cell Distribution Width 14.4 Platelet Count 171 Mean Platelet Volume 11.3 H Neutrophils % 64.8 Lymphocytes % 18.1 Monocytes % 9.5 Eosinophils % 6.8 Basophils % 0.7 Nucleated Red Blood Cells % 0.0 Neutrophils # 5.2 Lymphocytes # 1.5 Monocytes # 0.8 Eosinophils # 0.6 H Basophils # 0.1 Nucleated Red Blood Cells # 0.0 Sodium Level 146 H Potassium Level 3.5 Chloride Level 109 Carbon Dioxide Level 25 Anion Gap 16 Blood Urea Nitrogen 18 Creatinine 0.71 Glucose Level 102 Calcium Level 9.6 Phosphorus Level 4.1 Magnesium Level 1.8 Ammonia 86 H Medications Current Medications Morphine Sulfate (morphine) 3 mg Q4H PRN IV PAIN; Start 08/31/16 at 01:00 Ondansetron HCl (Zofran Inj) 4 mg Q6H PRN IV NAUSEA AND/OR VOMITING Last administered on 09/18/16 12:37; Admin Dose 4 MG; Start 08/31/16 at 02:00 Morphine Sulfate 2 mg 2 mg Q4H PRN IV PAIN LEVEL 7-10 Last administered on 09/14 09:45; Admin Dose 2 MG; Start 08/31/16 at 02:00 Propofol 100 ml @ 4.695 mls/ hr Q12H IV Last administered on 09/23/16 05:55; Admin Dose 11.268 MLS/HR; Start 09/07/16 at 13:30 Norepinephrine/ Dextrose (Levophed/D5W) 500 ml @ 1.87 mls/hr TITRATE IV Last administered on 09/15/16 06:19; Admin Dose 1.87 MLS/HR; Start 09/07/16 at 17:00 Acetazolamide (Diamox) 250 mg TID NGT Last administered on 09/23/16 09:21; Admin Dose 250 MG; Start 09/08/16 at 21:00 IV Flush (NS 10 ml) 10 ml PRN PRN IV IV PROTOCOL; Start 09/08/16 at 17:00 Potassium Chloride (Potassium Chloride Pwd/Soln) 20 meq BID NGT Last administered on 09/23/16 09:20; Admin Dose 20 MEQ; Start 09/11/16 at 21:00 Atorvastatin Calcium (Lipitor) 10 mg QHS NGT Last administered on 09/22/16 20: 30; Admin Dose 10 MG; Start 09/11/16 at 20:06 Digoxin (Digoxin) 0.125 mg DAILY@13 NGT Last administered on 09/22/16 12:20; Admin Dose 0.125 MG; Start 09/11/16 at 20:06 Famotidine (Pepcid) 20 mg BID NGT Last administered on 09/23/16 09:20; Admin Dose 20 MG; Start 09/11/16 at 20:06 Ferrous Sulfate (Feosol Liquid Cup) 300 mg DAILY NGT Last administered on 09:20; Admin Dose 300 MG; Start 09/12/16 at 09:00 Folic Acid (Folic Acid) 1 mg DAILY NGT Last administered on 09/23/16 09:20; Admin Dose 1 MG; Start 09/11/16 at 20:10 Losartan Potassium (Cozaar) 50 mg BID NGT ; Start 09/11/16 at 20:10; Status Future Hold Multivitamins Therapeutic (Theragran) 1 tab DAILY NGT Last administered on 09:20; Admin Dose 1 TAB; Start 09/11/16 at 20:11 Thiamine HCl (Vitamin B1) 100 mg DAILY NGT Last administered on 09/23/16 09:20 ; Admin Dose 100 MG; Start 09/11/16 at 20:11 Bisacodyl (Dulcolax Supp) 10 mg DAILY PRN [place] CONSTIPATION Last administered on 09/21/16 15:18; Admin Dose 10 MG; Start 09/14/16 at 09:00 Diltiazem HCl 60 mg 60 mg QID NGT Last administered on 09/23/16 09:21; Admin Dose 60 MG; Start 09/16/16 at 13:00 Phenylephrine HCl/ Dextrose (Jacinto-Syneph/D5W) 500 ml @ 75 mls/hr TITRATE IV ; Start 09/16/16 at 18:30 Apixaban (Eliquis) 2.5 mg BID PO Last administered on 09/23/16 09:20; Admin Dose 2.5 MG; Start 09/20/16 at 21:00 Loperamide HCl (Imodium Cap) 2 mg QID PRN PO DIARRHEA Last administered on 16:00; Admin Dose 2 MG; Start 09/22/16 at 10:00 Lactulose (Enulose) 40 gm Q6 NGT ; Start 09/23/16 at 12:00 Assessment/Plan Chief Complaint/Hosp Course IMP: 1. Acute on Chronic Hypercapnic Respiratory Failure 2. Vent Dependence 3. Atrial Fibrillation, preserved ejection fraction with left atrial enlargement 4. OHS/LOTTIE 5. Encephalopathy, likely exacerbated by elevated ammonia 6. Chronic liver disease history of EtOH RECS: 1. Repeat CPAP trial this morning 2. Daily sedation holiday 3. Increased diuretics, hold spironolactone 4. Continue nasogastric tube feeding 5. Continue lactulose 35 min CC time Discussed with staff and primary care team. Problems: YANET BOO MD, [facility] Sep 23, 2016 10:11
[2016-09-23] MEDS ORDERED: LACTULOSE 30ML CUP NGT SCH (12:00)
[2016-09-23] MEDS: DIGOXIN 0.125 MG TAB NGT SCH (13:01)
--- NOTE | 2016-09-23 13:45 | PN ---
Date/Time of Note Date/Time of Note DATE: 09/23/16 TIME: 13:41 Assessment/Plan VTE Prophylaxis VTE Prophylaxis Intervention: other Lines/Catheters IV Catheter Type (from Nrs): PICC Line Central line still needed: Yes Urinary Cath still in place: Yes Reason Cath still needed: other (indicate) Assessment/Plan Chief Complaint/Hosp Course 1. Atrial fibrillation: chronic and is on HR control. 2. Chest pain has resolved. 3. Chronic obstructive pulmonary disease/ resp failure 4. Alcoholic liver disease. 5. Thrombocytopenia: improved now 6. Morbid obesity. 7. Hyponatremia. 8. Hypomagnesemia. 9. hypoxemic respiratory failure: intubated now 10. hematuria: stable 11. anemia RECOMMENDATIONS: Correct electrolytes including magnesium, KCL prn. respiratory care and vent support as per pulmonary. aggressive suctioning. off of amiodarone, due to the fact that the patient is in chronic atrial fibrillation and has severe pulmonary disease, is best to control heart rate with other medications. The patient has had a stress test done last year, outpatient office Dr. Evans and that did not show any evidence of ischemia. cont digoxin to control the heart rate better. cont cardizem to control HR OFF of betablocker due to pulm disease. will cont eliquis to replace ASA as long as no bleeding . diuresis as tolerated. more than 36 minutes of critical care time was spent in management and treatment of this critically ill patient, excluding any procedures. Problems: Subjective 24 Hr Interval Summary Free Text/Dictation d/w staff and rhythm was reviewed. pt remains in Afib. HR has been overall stable. pt remains nonverbal on vent. he could not be extubated. OBJECTIVE: General: Patient is intubated on the vent in ICU. Obese. NO resp distress Respiratory:mild rhonchi heard anteriorly. GI : obese soft no rebound or guarding noted. Extremity + lower extremity edema neuro : sedated. pysch: Appear to be calm. Head: atraumatic, normocephalic Eyes: EOMI, nl conjunctiva Cardiovascular: irregular rhythm, systolic murmur Gastrointestinal: oft no rebound or guarding Exam/Review of Systems Vital Signs Vitals Vital Signs Date Time Temp Pulse Resp B/P Pulse Ox O2 Delivery O2 Flow Rate FiO2 09/23/16 08:00 81 09/23/16 05:07 20 97 35 09/23/16 03:30 99/58 Mechanical Ventilator 09/23/16 00:00 99.8 Intake and Output 09/22/16 09/22/16 09/23/16 15:00 23:00 07:00 Intake Total 81.129 ml 463.072 ml 418.876 ml Output Total 875 ml 885 ml 275 ml Balance -793.871 ml -421.928 ml 143.876 ml Results Result Diagram: 09/23/16 0400 09/23/16 0400 Results 24 hrs Laboratory Tests Test 09/23/16 04:00 White Blood Count 8.0 Red Blood Count 4.34 L Hemoglobin 13.0 L Hematocrit 38.3 L Mean Corpuscular Volume 88.2 Mean Corpuscular Hemoglobin 30.0 Mean Corpuscular Hemoglobin Concent 33.9 Red Cell Distribution Width 14.4 Platelet Count 171 Mean Platelet Volume 11.3 H Neutrophils % 64.8 Lymphocytes % 18.1 Monocytes % 9.5 Eosinophils % 6.8 Basophils % 0.7 Nucleated Red Blood Cells % 0.0 Neutrophils # 5.2 Lymphocytes # 1.5 Monocytes # 0.8 Eosinophils # 0.6 H Basophils # 0.1 Nucleated Red Blood Cells # 0.0 Sodium Level 146 H Potassium Level 3.5 Chloride Level 109 Carbon Dioxide Level 25 Anion Gap 16 Blood Urea Nitrogen 18 Creatinine 0.71 Glucose Level 102 Calcium Level 9.6 Phosphorus Level 4.1 Magnesium Level 1.8 Ammonia 86 H Medications Medications Current Medications Morphine Sulfate (morphine) 3 mg Q4H PRN IV PAIN; Start 08/31/16 at 01:00 Ondansetron HCl (Zofran Inj) 4 mg Q6H PRN IV NAUSEA AND/OR VOMITING Last administered on 09/18/16 12:37; Admin Dose 4 MG; Start 08/31/16 at 02:00 Morphine Sulfate 2 mg 2 mg Q4H PRN IV PAIN LEVEL 7-10 Last administered on 09/14 09:45; Admin Dose 2 MG; Start 08/31/16 at 02:00 Propofol 100 ml @ 4.695 mls/ hr Q12H IV Last administered on 09/23/16 05:55; Admin Dose 11.268 MLS/HR; Start 09/07/16 at 13:30 Norepinephrine/ Dextrose (Levophed/D5W) 500 ml @ 1.87 mls/hr TITRATE IV Last administered on 09/15/16 06:19; Admin Dose 1.87 MLS/HR; Start 09/07/16 at 17:00 Acetazolamide (Diamox) 250 mg TID NGT Last administered on 09/23/16 13:01; Admin Dose 250 MG; Start 09/08/16 at 21:00 IV Flush (NS 10 ml) 10 ml PRN PRN IV IV PROTOCOL; Start 09/08/16 at 17:00 Potassium Chloride (Potassium Chloride Pwd/Soln) 20 meq BID NGT Last administered on 09/23/16 09:20; Admin Dose 20 MEQ; Start 09/11/16 at 21:00 Atorvastatin Calcium (Lipitor) 10 mg QHS NGT Last administered on 09/22/16 20: 30; Admin Dose 10 MG; Start 09/11/16 at 20:06 Digoxin (Digoxin) 0.125 mg DAILY@13 NGT Last administered on 09/23/16 13:01; Admin Dose 0.125 MG; Start 09/11/16 at 20:06 Famotidine (Pepcid) 20 mg BID NGT Last administered on 09/23/16 09:20; Admin Dose 20 MG; Start 09/11/16 at 20:06 Ferrous Sulfate (Feosol Liquid Cup) 300 mg DAILY NGT Last administered on 09:20; Admin Dose 300 MG; Start 09/12/16 at 09:00 Folic Acid (Folic Acid) 1 mg DAILY NGT Last administered on 09/23/16 09:20; Admin Dose 1 MG; Start 09/11/16 at 20:10 Losartan Potassium (Cozaar) 50 mg BID NGT ; Start 09/11/16 at 20:10; Status Future Hold Multivitamins Therapeutic (Theragran) 1 tab DAILY NGT Last administered on 09:20; Admin Dose 1 TAB; Start 09/11/16 at 20:11 Thiamine HCl (Vitamin B1) 100 mg DAILY NGT Last administered on 09/23/16 09:20 ; Admin Dose 100 MG; Start 09/11/16 at 20:11 Bisacodyl (Dulcolax Supp) 10 mg DAILY PRN [place] CONSTIPATION Last administered on 09/21/16 15:18; Admin Dose 10 MG; Start 09/14/16 at 09:00 Diltiazem HCl 60 mg 60 mg QID NGT Last administered on 09/23/16 09:21; Admin Dose 60 MG; Start 09/16/16 at 13:00 Phenylephrine HCl/ Dextrose (Jacinto-Syneph/D5W) 500 ml @ 75 mls/hr TITRATE IV ; Start 09/16/16 at 18:30 Apixaban (Eliquis) 2.5 mg BID PO Last administered on 09/23/16 09:20; Admin Dose 2.5 MG; Start 09/20/16 at 21:00 Loperamide HCl (Imodium Cap) 2 mg QID PRN PO DIARRHEA Last administered on 16:00; Admin Dose 2 MG; Start 09/22/16 at 10:00 Lactulose (Enulose) 60 gm Q6 NGT Last administered on 09/23/16 13:00; Admin Dose 60 GM; Start 09/23/16 at 12:00 TAL ABREU MD Sep 23, 2016 13:45
[2016-09-23] MEDS: FUROSEMIDE 40 MG INJ IV SCH (17:34)
[2016-09-23] MEDS: ATORVASTATIN 10 MG TAB NGT SCH (20:36)
[2016-09-24] VITALS (45 sets, daily range): BP systolic 95–126; BP diastolic 61–88; PULSE 91–116; RESP 19–42
[2016-09-24] MEDS ORDERED: ACETAMINOPHEN 650MG/20.3ML CUP NGT ONE (00:30)
[2016-09-24] MEDS: IPRATROPIUM (HFA) 12.9 GM INHALER INH SCH ×4 (01:41→19:30)
[2016-09-24] MEDS ORDERED: SOD CHLORIDE 0.9% 500 ML IV ONE (03:30)
[2016-09-24] MEDS ORDERED: SOD CHLORIDE 0.45% 1,000 ML IV SCH (04:30)
[2016-09-24] MEDS: PROPOFOL 100 ML IV SCH ×3 (05:27→20:52)
[2016-09-24 05:28] LABS: ADD SCAN DIFF NO
[2016-09-24] MEDS: FUROSEMIDE 40 MG INJ IV SCH ×2 (05:28→11:14)
[2016-09-24] MEDS: LACTULOSE 30ML CUP NGT SCH ×3 (05:28→18:57)
[2016-09-24 05:36] LABS: BASOPHIL # 0.1 10^3/ul (0.0-0.1); BASOPHILS % 0.6 % (0.0-2.0); EOSINOPHILS # 0.1 10^3/ul (0.0-0.5); EOSINOPHILS % 1.1 % (0.0-7.0); HEMOGLOBIN 13.8 g/dl (14.0-18.0); LYMPHOCYTES # 1.2 10^3/ul (0.8-2.9); LYMPHOCYTES % 11.6 % (15.0-51.0); MEAN CORPUSCULAR HGB CONC 33.7 g/dl (32.0-37.0); MEAN CORPUSCULAR VOLUME 89.1 fl (82.0-101.0); MEAN PLATELET VOLUME 11.8 fl (7.4-10.4); MONOCYTES % 10.2 % (0.0-11.0); NEUTROPHIL # 7.6 10^3/ul (1.6-7.5); NEUTROPHILS % 76.1 % (39.0-77.0); PLATELET COUNT 184 10^3/UL (140-415); RED CELL DISTRIBUTION WIDTH 14.6 % (11.5-14.5)
[2016-09-24 06:25] LABS: CALCIUM 9.9 mg/dl (8.4-10.2); CREATININE 0.89 mg/dl (0.61-1.24)
--- NOTE | 2016-09-24 06:45 | RADRPT ---
PROCEDURE: XR Chest. CLINICAL INDICATION: Shortness of breath TECHNIQUE: A single AP view of the chest was obtained. COMPARISON: Chest x-ray dated 09/23/2016 FINDINGS: The endotracheal tube tip is approximately 6.6 cm above the amber. The tip of the enteric tube pr ojects over the left upper quadrant. There is a right upper extremity PICC line with tip near the ca voatrial junction. Lung volumes are low with compressive changes, vascular crowding and basilar atelectasis. No focal a irspace opacity, pleural effusion or pneumothorax is seen. The cardiomediastinal silhouette is mild ly enlarged. Calcifications are seen within the aortic arch. The osseous structures are unremarkabl e. IMPRESSION: 1. Low lung volumes with compressive changes and basilar atelectasis. There has been interval impro vement in degree of pulmonary vascular congestion when compared to the prior examination. 2. Mild cardiomegaly and aortic atherosclerosis. 3. Tubes and lines, as described above. RPTAT: .Geeta Escoto MD, MD Date Time Electronically viewed and signed by .Geeta Escoto MD, on 09/24/2016 06:45 .G/
[2016-09-24] MEDS ORDERED: POTASSIUM CHLORIDE (SR) 20 MEQ TAB PO STA (07:06)
[2016-09-24] MEDS ORDERED: POTASSIUM CHLORIDE 250 ML IVPB ONE (07:30)
[2016-09-24] MEDS ORDERED: MAGNESIUM SULFATE 2 GM/50 ML 50 ML IVPB ONE (07:30)
--- NOTE | 2016-09-24 07:35 | PN ---
Date/Time of Note Date/Time of Note DATE: 09/24/16 TIME: 07:32 Assessment/Plan VTE Prophylaxis VTE Prophylaxis Intervention: other Lines/Catheters IV Catheter Type (from Nrs): PICC Line Central line still needed: Yes Urinary Cath still in place: Yes Reason Cath still needed: other (indicate) Assessment/Plan Chief Complaint/Hosp Course 1. Atrial fibrillation: chronic and is on HR control. currently on eliquis as well. 2. Chest pain has resolved. 3. Chronic obstructive pulmonary disease/ resp failure 4. Alcoholic liver disease. 5. Thrombocytopenia: improved now 6. Morbid obesity. 7. Hyponatremia. 8. Hypomagnesemia, hypo K 9. hypoxemic respiratory failure: intubated now. may need trach. 10. hematuria: stable 11. anemia RECOMMENDATIONS: Correct electrolytes including magnesium, KCL prn. respiratory care and vent support as per pulmonary. aggressive suctioning. off of amiodarone, due to the fact that the patient is in chronic atrial fibrillation and has severe pulmonary disease, is best to control heart rate with other medications. cont digoxin to control the heart rate better. cont cardizem to control HR OFF of betablocker due to pulm disease. will cont eliquis to replace ASA as long as no bleeding . MAY NEED TO HOLD ELIQUIS 24-48 hours prior to the PEG and trach. diuresis as tolerated. more than 37 minutes of critical care time was spent in management and treatment of this critically ill patient, excluding any procedures. Problems: Subjective 24 Hr Interval Summary Free Text/Dictation d/w staff and rhythm was reviewed. pt remains in Afib. HR has been overall stable BUT intermittently elevated. no pauses noted. pt remains nonverbal on vent. . OBJECTIVE: General: Patient is intubated on the vent in ICU. Obese. Respiratory:mild rhonchi heard anteriorly. Gastrointestinal: obese soft no rebound or guarding noted. Extremity + lower extremity edema , but improved neuro : sedated. pysch: Appear to be calm. Head: atraumatic, normocephalic Eyes: EOMI, nl conjunctiva Cardiovascular: irregular rhythm, systolic murmur Exam/Review of Systems Vital Signs Vitals Vital Signs Date Time Temp Pulse Resp B/P Pulse Ox O2 Delivery O2 Flow Rate FiO2 09/24/16 06:00 102 19 107/68 97 Mechanical Ventilator 09/24/16 05:05 35 09/24/16 04:00 99.8 Intake and Output 09/23/16 09/23/16 09/24/16 14:59 22:59 06:59 Intake Total 387.66 ml 517.64 ml 755.46 ml Output Total 1000 ml 1020 ml 1800 ml Balance -612.34 ml -502.36 ml -1044.54 ml Results Result Diagram: 09/24/16 0500 09/24/16 0500 Results 24 hrs Laboratory Tests Test 09/24/16 05:00 White Blood Count 10.0 # Red Blood Count 4.60 L Hemoglobin 13.8 L Hematocrit 41.0 L Mean Corpuscular Volume 89.1 Mean Corpuscular Hemoglobin 30.0 Mean Corpuscular Hemoglobin Concent 33.7 Red Cell Distribution Width 14.6 H Platelet Count 184 Mean Platelet Volume 11.8 H Neutrophils % 76.1 Lymphocytes % 11.6 L Monocytes % 10.2 Eosinophils % 1.1 Basophils % 0.6 Nucleated Red Blood Cells % 0.0 Neutrophils # 7.6 H Lymphocytes # 1.2 Monocytes # 1.0 H Eosinophils # 0.1 Basophils # 0.1 Nucleated Red Blood Cells # 0.0 Sodium Level 151 H Potassium Level 3.0 L Chloride Level 113 H Carbon Dioxide Level 22 Anion Gap 19 H Blood Urea Nitrogen 21 H Creatinine 0.89 Glucose Level 123 Calcium Level 9.9 Ammonia 66 H B-Type Natriuretic Peptide 141 H Medications Medications Current Medications Morphine Sulfate (morphine) 3 mg Q4H PRN IV PAIN; Start 08/31/16 at 01:00 Ondansetron HCl (Zofran Inj) 4 mg Q6H PRN IV NAUSEA AND/OR VOMITING Last administered on 09/18/16 12:37; Admin Dose 4 MG; Start 08/31/16 at 02:00 Morphine Sulfate 2 mg 2 mg Q4H PRN IV PAIN LEVEL 7-10 Last administered on 09/14 09:45; Admin Dose 2 MG; Start 08/31/16 at 02:00 Propofol 100 ml @ 4.695 mls/ hr Q12H IV Last administered on 09/24/16 05:27; Admin Dose 18.78 MLS/HR; Start 09/07/16 at 13:30 Norepinephrine/ Dextrose (Levophed/D5W) 500 ml @ 1.87 mls/hr TITRATE IV Last administered on 09/15/16 06:19; Admin Dose 1.87 MLS/HR; Start 09/07/16 at 17:00 Acetazolamide (Diamox) 250 mg TID NGT Last administered on 09/23/16 20:36; Admin Dose 250 MG; Start 09/08/16 at 21:00 IV Flush (NS 10 ml) 10 ml PRN PRN IV IV PROTOCOL; Start 09/08/16 at 17:00 Potassium Chloride (Potassium Chloride Pwd/Soln) 20 meq BID NGT Last administered on 09/23/16 20:36; Admin Dose 20 MEQ; Start 09/11/16 at 21:00 Atorvastatin Calcium (Lipitor) 10 mg QHS NGT Last administered on 09/23/16 20: 36; Admin Dose 10 MG; Start 09/11/16 at 20:06 Digoxin (Digoxin) 0.125 mg DAILY@13 NGT Last administered on 09/23/16 13:01; Admin Dose 0.125 MG; Start 09/11/16 at 20:06 Famotidine (Pepcid) 20 mg BID NGT Last administered on 09/23/16 20:36; Admin Dose 20 MG; Start 09/11/16 at 20:06 Ferrous Sulfate (Feosol Liquid Cup) 300 mg DAILY NGT Last administered on 09:20; Admin Dose 300 MG; Start 09/12/16 at 09:00 Folic Acid (Folic Acid) 1 mg DAILY NGT Last administered on 09/23/16 09:20; Admin Dose 1 MG; Start 09/11/16 at 20:10 Losartan Potassium (Cozaar) 50 mg BID NGT ; Start 09/11/16 at 20:10; Status Future Hold Multivitamins Therapeutic (Theragran) 1 tab DAILY NGT Last administered on 09:20; Admin Dose 1 TAB; Start 09/11/16 at 20:11 Thiamine HCl (Vitamin B1) 100 mg DAILY NGT Last administered on 09/23/16 09:20 ; Admin Dose 100 MG; Start 09/11/16 at 20:11 Bisacodyl (Dulcolax Supp) 10 mg DAILY PRN [place] CONSTIPATION Last administered on 09/21/16 15:18; Admin Dose 10 MG; Start 09/14/16 at 09:00 Diltiazem HCl 60 mg 60 mg QID NGT Last administered on 09/23/16 20:37; Admin Dose 60 MG; Start 09/16/16 at 13:00 Phenylephrine HCl/ Dextrose (Jacinto-Syneph/D5W) 500 ml @ 75 mls/hr TITRATE IV ; Start 09/16/16 at 18:30 Apixaban (Eliquis) 2.5 mg BID PO Last administered on 09/23/16 20:37; Admin Dose 2.5 MG; Start 09/20/16 at 21:00 Loperamide HCl (Imodium Cap) 2 mg QID PRN PO DIARRHEA Last administered on 16:00; Admin Dose 2 MG; Start 09/22/16 at 10:00 Lactulose 60 gm 60 gm Q6 NGT Last administered on 09/24/16 05:28; Admin Dose 60 GM; Start 09/23/16 at 12:00 Sodium Chloride 1,000 ml @ 75 mls/hr [id number] IV Last administered on 09/24/16 03:17; Admin Dose 75 MLS/HR; Start 09/24/16 at 04:30 Potassium Chloride (KCl 40 MEQ/250 ML NS) 250 ml @ 62.5 mls/hr ONCE ONCE IVPB ; Start 09/24/16 at 07:30; Stop 09/24/16 at 11:29 TAL ABREU MD Sep 24, 2016 07:35
[2016-09-24 07:50] LABS: MAGNESIUM 1.8 mg/dl (1.7-2.5); PHOSPHORUS 4.9 mg/dl (2.5-4.9)
[2016-09-24] MEDS: ALBUTEROL 18 GM INHALER INH SCH ×3 (07:50→19:30)
[2016-09-24] MEDS: ACETAMINOPHEN 650MG/20.3ML CUP NGT PRN (08:25)
[2016-09-24] MEDS: FOLIC ACID 1 MG TAB NGT SCH (08:25)
[2016-09-24] MEDS: FAMOTIDINE 20 MG TAB NGT SCH ×2 (08:25→20:51)
[2016-09-24] MEDS: FERROUS SULFATE 60 MG/ML 5ML CUP NGT SCH (08:25)
[2016-09-24] MEDS: APIXABAN 5 MG TABLET PO SCH (08:25)
[2016-09-24] MEDS: THIAMINE 100 MG TAB NGT SCH (08:25)
[2016-09-24] MEDS: MULTIVITAMINS THERAPEUTIC TAB NGT SCH (08:25)
[2016-09-24] MEDS: ACETAZOLAMIDE 250 MG TAB NGT SCH (08:25)
[2016-09-24] MEDS: POTASSIUM CHLORIDE 20 MEQ POWDER FOR ORAL SOLN NGT SCH ×2 (08:26→20:51)
[2016-09-24] MEDS ORDERED: DEXTROSE 5% 1,000 ML IV SCH (09:30)
--- NOTE | 2016-09-24 09:34 | PN ---
Date/Time of Note Date/Time of Note DATE: 09/24/16 TIME: 09:29 Assessment/Plan VTE Prophylaxis VTE Prophylaxis Intervention: other (Eliquis) Lines/Catheters IV Catheter Type (from Nrs): PICC Line Central line still needed: Yes Urinary Cath still in place: Yes Reason Cath still needed: urinary retention Assessment/Plan Chief Complaint/Hosp Course A/P: 56-year-old morbidly obese male with BMI of 54, with history of hypertension, decompensated alcoholic cirrhosis, anemia who was transferred from [facility] after he presented there with chest pain, now res failure, intubated. 1. Acute respiratory failure. Acute on chronic. Hypoxic and hypercapnic. Pt intubated on 09/07/2016 because of worsening respiratory distress. Failed CPAP 3 days ago. - Ventilator management as per Pulmonary. 2. Essential hypertension. Status post pressors for episode of hypotension. BP now improved - monitor, continue current antihypertensives 3. Chronic obstructive pulmonary disease. The patient on inhaled bronchodilators. - f/u Pulmonology rec's, Duoneb's 4. Chest pain. Acute coronary syndrome ruled out. Troponins negative. - continue Dilt PO, Dig PO, IV Lasix for now, f/u CV rec's 5. Atrial fibrillation. Rate controlled. On amiodarone. - continue PO Dilt and Dig, f/u CV rec's - continue Eliquis for stroke prophylaxis 6. Alcoholic liver disease. LFT's nL, but ammonia still elevated (94 -> 88 -> 68) - monitor, holding lasix temporarily sec to need for IVF's (has elevated Na+ levels) - continue lactulose, trend NH4 7. Thrombocytopenia. Most probably from acute alcoholic liver disease. Plt now stable - have d/c'ed Zosyn, monitor for any bleeding. 8. Alcohol abuse. The patient's last drink was on the day prior to hospitalization. The patient will be maintained on daily thiamine. Status post Librium taper. 10. Possible aspiration with aspiration pneumoni - nL WBC but + fever in last 24 hrs, s/p Abx - check UA, culture, blood cx's. 11. Acute on chronic CHF exacerbation. The patient's 2D echocardiogram showing ejection fraction of 55%. Diastolic dysfunction. - monitor, lasix on temp hold (see # 6) 12. Fluid, electrolytes and nutrition. NG tube feedings - but on hold sec to loose stools - cdiff = neg 13. Deep venous thrombosis prophylaxis - Eliquis 14. Gastrointestinal prophylaxis. H2 receptor blockers. Plan. Continue ICU monitoring. Replete potassium. Ventilator weaning as per Pulmonary. Critical care time: 45 minutes. On 09/18/2016, doctor had a long conversation with the patient's mother with the help of a microstrategy bi developer regarding the patient's prognosis. The patient's mother was explained about the need for a tracheostomy if unable to wean the patient off the ventilator. Later, the patient's ex- was present in the patient's room. Talked to the patient's ex- in the presence of the patient' s mother after getting consent to talk to the patient's ex- from the mother. Patient's ex- was informed about the necessity for a tracheostomy and PEG tube placement if unable to wean the patient off the ventilator. The patient's mom and ex- verbalized understanding, and they agreed for proceeding with a tracheostomy and PEG tube placement if necessary. Will follow up with sharepoint consultant teams on this. Problems: Subjective 24 Hr Interval Summary Free Text/Dictation Pt still intubated, had + fever in last 24 hrs. Seen by CV team this AM. Exam/Review of Systems Vital Signs Vitals Vital Signs Date Time Temp Pulse Resp B/P Pulse Ox O2 Delivery O2 Flow Rate FiO2 09/24/16 06:00 102 19 107/68 97 Mechanical Ventilator 09/24/16 05:05 35 09/24/16 04:00 99.8 Intake and Output 09/23/16 09/23/16 09/24/16 15:00 23:00 07:00 Intake Total 390.5 ml 522.32 ml 696.68 ml Output Total 1000 ml 895 ml 1800 ml Balance -609.5 ml -372.68 ml -1103.32 ml Exam GENERAL:obese male patient lying in orally intubated. HEENT: Head normocephalic and atraumatic. Eyes: Anicteric sclerae. Conjunctivae clear. ENT: Nasal septum is midline. NGT in place. Orally intubated. NECK: Short with increased neck circumference. RESPIRATORY: some bilaterally diminished breath sounds. CARDIAC: Irregularly irregular rhythm. S1 and S2 heard. ABDOMEN: Obese. Bowel sounds hypoactive. EXTREMITIES: No cyanosis, no clubbing. Bilateral lower extremity 1+ pitting edema. Peripheral pulses are palpable. NEUROLOGIC: The patient is sedated. Results Result Diagram: 09/24/16 0500 09/24/16 0500 Results 24 hrs Laboratory Tests Test 09/24/16 05:00 White Blood Count 10.0 # Red Blood Count 4.60 L Hemoglobin 13.8 L Hematocrit 41.0 L Mean Corpuscular Volume 89.1 Mean Corpuscular Hemoglobin 30.0 Mean Corpuscular Hemoglobin Concent 33.7 Red Cell Distribution Width 14.6 H Platelet Count 184 Mean Platelet Volume 11.8 H Neutrophils % 76.1 Lymphocytes % 11.6 L Monocytes % 10.2 Eosinophils % 1.1 Basophils % 0.6 Nucleated Red Blood Cells % 0.0 Neutrophils # 7.6 H Lymphocytes # 1.2 Monocytes # 1.0 H Eosinophils # 0.1 Basophils # 0.1 Nucleated Red Blood Cells # 0.0 Sodium Level 151 H Potassium Level 3.0 L Chloride Level 113 H Carbon Dioxide Level 22 Anion Gap 19 H Blood Urea Nitrogen 21 H Creatinine 0.89 Glucose Level 123 Calcium Level 9.9 Phosphorus Level 4.9 Magnesium Level 1.8 Ammonia 66 H B-Type Natriuretic Peptide 141 H Medications Medications Current Medications Morphine Sulfate (morphine) 3 mg Q4H PRN IV PAIN; Start 08/31/16 at 01:00 Ondansetron HCl (Zofran Inj) 4 mg Q6H PRN IV NAUSEA AND/OR VOMITING Last administered on 09/18/16 12:37; Admin Dose 4 MG; Start 08/31/16 at 02:00 Morphine Sulfate 2 mg 2 mg Q4H PRN IV PAIN LEVEL 7-10 Last administered on 09/14 09:45; Admin Dose 2 MG; Start 08/31/16 at 02:00 Propofol 100 ml @ 4.695 mls/ hr Q12H IV Last administered on 09/24/16 05:27; Admin Dose 18.78 MLS/HR; Start 09/07/16 at 13:30 Norepinephrine/ Dextrose (Levophed/D5W) 500 ml @ 1.87 mls/hr TITRATE IV Last administered on 09/15/16 06:19; Admin Dose 1.87 MLS/HR; Start 09/07/16 at 17:00 Acetazolamide (Diamox) 250 mg TID NGT Last administered on 09/24/16 08:25; Admin Dose 250 MG; Start 09/08/16 at 21:00 IV Flush (NS 10 ml) 10 ml PRN PRN IV IV PROTOCOL; Start 09/08/16 at 17:00 Potassium Chloride (Potassium Chloride Pwd/Soln) 20 meq BID NGT Last administered on 09/23/16 20:36; Admin Dose 20 MEQ; Start 09/11/16 at 21:00 Atorvastatin Calcium (Lipitor) 10 mg QHS NGT Last administered on 09/23/16 20: 36; Admin Dose 10 MG; Start 09/11/16 at 20:06 Digoxin (Digoxin) 0.125 mg DAILY@13 NGT Last administered on 09/23/16 13:01; Admin Dose 0.125 MG; Start 09/11/16 at 20:06 Famotidine (Pepcid) 20 mg BID NGT Last administered on 09/24/16 08:25; Admin Dose 20 MG; Start 09/11/16 at 20:06 Ferrous Sulfate (Feosol Liquid Cup) 300 mg DAILY NGT Last administered on 08:25; Admin Dose 300 MG; Start 09/12/16 at 09:00 Folic Acid (Folic Acid) 1 mg DAILY NGT Last administered on 09/24/16 08:25; Admin Dose 1 MG; Start 09/11/16 at 20:10 Losartan Potassium (Cozaar) 50 mg BID NGT ; Start 09/11/16 at 20:10; Status Future Hold Multivitamins Therapeutic (Theragran) 1 tab DAILY NGT Last administered on 08:25; Admin Dose 1 TAB; Start 09/11/16 at 20:11 Thiamine HCl (Vitamin B1) 100 mg DAILY NGT Last administered on 09/24/16 08:25 ; Admin Dose 100 MG; Start 09/11/16 at 20:11 Bisacodyl (Dulcolax Supp) 10 mg DAILY PRN [place] CONSTIPATION Last administered on 09/21/16 15:18; Admin Dose 10 MG; Start 09/14/16 at 09:00 Diltiazem HCl 60 mg 60 mg QID NGT Last administered on 09/23/16 20:37; Admin Dose 60 MG; Start 09/16/16 at 13:00 Phenylephrine HCl/ Dextrose (Jacinto-Syneph/D5W) 500 ml @ 75 mls/hr TITRATE IV ; Start 09/16/16 at 18:30 Apixaban (Eliquis) 2.5 mg BID PO Last administered on 09/24/16 08:25; Admin Dose 2.5 MG; Start 09/20/16 at 21:00 Loperamide HCl (Imodium Cap) 2 mg QID PRN PO DIARRHEA Last administered on 16:00; Admin Dose 2 MG; Start 09/22/16 at 10:00 Lactulose 60 gm 60 gm Q6 NGT Last administered on 09/24/16 05:28; Admin Dose 60 GM; Start 09/23/16 at 12:00 Sodium Chloride 1,000 ml @ 75 mls/hr [id number] IV Last administered on 09/24/16 03:17; Admin Dose 75 MLS/HR; Start 09/24/16 at 04:30 Potassium Chloride (KCl 40 MEQ/250 ML NS) 250 ml @ 62.5 mls/hr ONCE ONCE IVPB Last administered on 09/24/16 08:24; Admin Dose 62.5 MLS/HR; Start 09/24/16 at 07:30; Stop 09/24/16 at 11:29 Potassium Chloride 40 meq 40 meq ONCE NGT ; Start 09/24/16 at 13:00; Stop at 23:00 Magnesium Sulfate (Magnesium Sulfate 2 Gm/50 ml) 50 ml @ 25 mls/hr ONCE ONCE IVPB ; Start 09/24/16 at 07:30; Stop 09/24/16 at 09:29 Acetaminophen (Tylenol Liquid) 650 mg Q4H PRN NGT PAIN AND OR ELEVATED TEMP Last administered on 09/24/16 08:25; Admin Dose 650 MG; Start 09/24/16 at 08:00 SONI SUTTON Sep 24, 2016 09:34
[2016-09-24] MEDS: DILTIAZEM 60 MG TAB NGT SCH ×4 (09:53→20:51)
--- NOTE | 2016-09-24 10:05 | CONS ---
Date/Time of Note Date/Time of Note DATE: 09/24/16 TIME: 09:59 Consult Date/Type/Reason Admit Date/Time Aug 30, 2016 at 23:34 Type of Consultation: Pulmonary/critical care Subjective Patient is awake alert this morning on mechanical ventilation. He tolerated 1 hour of CPAP trial yesterday before stopping for respiratory distress. Chest x-ray this morning shows improved aeration. Objective Vital Signs Date Time Temp Pulse Resp B/P Pulse Ox O2 Delivery O2 Flow Rate FiO2 09/24/16 06:00 102 19 107/68 97 Mechanical Ventilator 09/24/16 05:05 35 09/24/16 04:00 99.8 Intake and Output 09/23/16 09/23/16 09/24/16 15:00 23:00 07:00 Intake Total 390.5 ml 522.32 ml 696.68 ml Output Total 1000 ml 895 ml 1800 ml Balance -609.5 ml -372.68 ml -1103.32 ml Exam PHYSICAL EXAMINATION GENERAL: Chronically ill-appearing gentleman intubated on mechanical ventilation opens eyes comfortable VITAL SIGNS: see below. HEENT: Pupils equal, round, and reactive to light. CARDIAC: S1, S2, 1/6 systolic ejection murmur CHEST: Diminished air entry bilaterally. ABDOMEN: Mildly distended. Bowel sounds present no guarding or rebound obese. EXTREMITIES: No cyanosis, clubbing edema +1 NEUROLOGIC: Generalized weakness Results/Medications Result Diagram: 09/24/16 0500 09/24/16 0500 Results 24 hrs Laboratory Tests Test 09/24/16 05:00 White Blood Count 10.0 # Red Blood Count 4.60 L Hemoglobin 13.8 L Hematocrit 41.0 L Mean Corpuscular Volume 89.1 Mean Corpuscular Hemoglobin 30.0 Mean Corpuscular Hemoglobin Concent 33.7 Red Cell Distribution Width 14.6 H Platelet Count 184 Mean Platelet Volume 11.8 H Neutrophils % 76.1 Lymphocytes % 11.6 L Monocytes % 10.2 Eosinophils % 1.1 Basophils % 0.6 Nucleated Red Blood Cells % 0.0 Neutrophils # 7.6 H Lymphocytes # 1.2 Monocytes # 1.0 H Eosinophils # 0.1 Basophils # 0.1 Nucleated Red Blood Cells # 0.0 Sodium Level 151 H Potassium Level 3.0 L Chloride Level 113 H Carbon Dioxide Level 22 Anion Gap 19 H Blood Urea Nitrogen 21 H Creatinine 0.89 Glucose Level 123 Calcium Level 9.9 Phosphorus Level 4.9 Magnesium Level 1.8 Ammonia 66 H B-Type Natriuretic Peptide 141 H Medications Current Medications Morphine Sulfate (morphine) 3 mg Q4H PRN IV PAIN; Start 08/31/16 at 01:00 Ondansetron HCl (Zofran Inj) 4 mg Q6H PRN IV NAUSEA AND/OR VOMITING Last administered on 09/18/16 12:37; Admin Dose 4 MG; Start 08/31/16 at 02:00 Morphine Sulfate 2 mg 2 mg Q4H PRN IV PAIN LEVEL 7-10 Last administered on 09/14 09:45; Admin Dose 2 MG; Start 08/31/16 at 02:00 Propofol 100 ml @ 4.695 mls/ hr Q12H IV Last administered on 09/24/16 05:27; Admin Dose 18.78 MLS/HR; Start 09/07/16 at 13:30 Norepinephrine/ Dextrose (Levophed/D5W) 500 ml @ 1.87 mls/hr TITRATE IV Last administered on 09/15/16 06:19; Admin Dose 1.87 MLS/HR; Start 09/07/16 at 17:00 Acetazolamide (Diamox) 250 mg TID NGT Last administered on 09/24/16 08:25; Admin Dose 250 MG; Start 09/08/16 at 21:00 IV Flush (NS 10 ml) 10 ml PRN PRN IV IV PROTOCOL; Start 09/08/16 at 17:00 Potassium Chloride (Potassium Chloride Pwd/Soln) 20 meq BID NGT Last administered on 09/23/16 20:36; Admin Dose 20 MEQ; Start 09/11/16 at 21:00 Atorvastatin Calcium (Lipitor) 10 mg QHS NGT Last administered on 09/23/16 20: 36; Admin Dose 10 MG; Start 09/11/16 at 20:06 Digoxin (Digoxin) 0.125 mg DAILY@13 NGT Last administered on 09/23/16 13:01; Admin Dose 0.125 MG; Start 09/11/16 at 20:06 Famotidine (Pepcid) 20 mg BID NGT Last administered on 09/24/16 08:25; Admin Dose 20 MG; Start 09/11/16 at 20:06 Ferrous Sulfate (Feosol Liquid Cup) 300 mg DAILY NGT Last administered on 08:25; Admin Dose 300 MG; Start 09/12/16 at 09:00 Folic Acid (Folic Acid) 1 mg DAILY NGT Last administered on 09/24/16 08:25; Admin Dose 1 MG; Start 09/11/16 at 20:10 Losartan Potassium (Cozaar) 50 mg BID NGT ; Start 09/11/16 at 20:10; Status Future Hold Multivitamins Therapeutic (Theragran) 1 tab DAILY NGT Last administered on 08:25; Admin Dose 1 TAB; Start 09/11/16 at 20:11 Thiamine HCl (Vitamin B1) 100 mg DAILY NGT Last administered on 09/24/16 08:25 ; Admin Dose 100 MG; Start 09/11/16 at 20:11 Bisacodyl (Dulcolax Supp) 10 mg DAILY PRN [place] CONSTIPATION Last administered on 09/21/16 15:18; Admin Dose 10 MG; Start 09/14/16 at 09:00 Diltiazem HCl 60 mg 60 mg QID NGT Last administered on 09/24/16 09:53; Admin Dose 60 MG; Start 09/16/16 at 13:00 Phenylephrine HCl/ Dextrose (Jacinto-Syneph/D5W) 500 ml @ 75 mls/hr TITRATE IV ; Start 09/16/16 at 18:30 Apixaban (Eliquis) 2.5 mg BID PO Last administered on 09/24/16 08:25; Admin Dose 2.5 MG; Start 09/20/16 at 21:00 Loperamide HCl (Imodium Cap) 2 mg QID PRN PO DIARRHEA Last administered on 16:00; Admin Dose 2 MG; Start 09/22/16 at 10:00 Lactulose 60 gm 60 gm Q6 NGT Last administered on 09/24/16 05:28; Admin Dose 60 GM; Start 09/23/16 at 12:00 Potassium Chloride (KCl 40 MEQ/250 ML NS) 250 ml @ 62.5 mls/hr ONCE ONCE IVPB Last administered on 09/24/16 08:24; Admin Dose 62.5 MLS/HR; Start 09/24/16 at 07:30; Stop 09/24/16 at 11:29 Potassium Chloride (Potassium Chloride Pwd/Soln) 40 meq ONCE NGT ; Start at 13:00; Stop 09/24/16 at 23:00 Acetaminophen 650 mg 650 mg Q4H PRN NGT PAIN AND OR ELEVATED TEMP Last administered on 09/24/16 08:25; Admin Dose 650 MG; Start 09/24/16 at 08:00 Dextrose (D5W) 1,000 ml @ 75 mls/hr [id number] IV Last administered on 09/24/16 09:53; Admin Dose 75 MLS/HR; Start 09/24/16 at 09:30; Stop 09/25/16 at 09:30 Assessment/Plan Chief Complaint/Hosp Course IMP: 1. Acute on Chronic Hypercapnic Respiratory Failure 2. Vent Dependence 3. Atrial Fibrillation, preserved ejection fraction with left atrial enlargement 4. OHS/LOTTIE 5. Encephalopathy, likely exacerbated by elevated ammonia, clinically improving 6. Chronic liver disease history of EtOH RECS: 1. Repeat CPAP trial this morning 2. Daily sedation holiday 3. Continue diuretics, replace potassium, increase free water. DC Diamox 4. Continue nasogastric tube feeding 5. Continue lactulose for elevated ammonia 35 min CC time Discussed with staff and primary care team. Problems: YANET BOO MD, [facility] Sep 24, 2016 10:05
[2016-09-24 12:22] LABS: ADD UMIC YES; UR ASCORBIC ACID 40 mg/dL (NEGATIVE); UR BACTERIA FEW /HPF (NONE SEEN); UR BILIRUBIN (Dip) NEGATIVE (NEGATIVE); UR BLOOD (Dip) 3+ mg/dL (NEGATIVE); UR CLARITY CLOUDY (CLEAR); UR COLOR AMBER (YELLOW); UR GLUCOSE (Dip) NEGATIVE (NEGATIVE); UR KETONES (Dip) NEGATIVE (NEGATIVE); UR LEUKOCYTE ESTERASE (Dip) NEGATIVE Leu/ul (NEGATIVE); UR MUCUS FEW /HPF (NONE SEEN); UR NITRITE (Dip) NEGATIVE (NEGATIVE); UR RBC > 182 /HPF (0-5); UR SPECIFIC GRAVITY (Dip) 1.032 (1.003-1.030); UR TOTAL PROTEIN (Dip) 2+ mg/dl (NEGATIVE); UR UROBILINOGEN (Dip) 2+ mg/dL (NEGATIVE); UR WBC CLUMPS MANY /HPF (NONE SEEN)
[2016-09-24] MEDS ORDERED: POTASSIUM CHLORIDE 20 MEQ POWDER FOR ORAL SOLN NGT SCH (13:00)
[2016-09-24] MEDS: DIGOXIN 0.125 MG TAB NGT SCH (13:03)
[2016-09-24 13:49] LABS: AADO2 Arterial 136.4 mmHg (7.0-24.0); Allen Test ACCEPTAB; Arterial Base Excess -0.4 mmol/L (-3.0-3); Arterial COHb 0.7 % (0.0-3.0); Arterial Fraction of Oxyhgb 92.4 % (93.0-99.0); Arterial HCO3 23.7 mmol/L (22.0-26.0); Arterial MetHb 0.4 % (0.0-1.5); Arterial Total Hemglobin 15.9 g/dl (12.0-18.0); Blood Gas PS 10; MODE VENT - CPAP
[2016-09-24 13:55] LABS: AADO2 Arterial 108.8 mmHg (7.0-24.0); Allen Test ACCEPTAB; Arterial Base Excess -3.2 mmol/L (-3.0-3); Arterial COHb 0.5 % (0.0-3.0); Arterial HCO3 21.7 mmol/L (22.0-26.0); Arterial MetHb 0.4 % (0.0-1.5); Arterial Total Hemglobin 15.7 g/dl (12.0-18.0); MODE VENT - AC
[2016-09-24 16:04] LABS: INR 1.36; PARTIAL THROMBOPLASTIN TIME 32.7 Sec (25.0-35.0); PROTIME 16.8 Sec (12.2-14.2); PT RATIO 1.3
[2016-09-24 18:46] LABS: ADD SCAN DIFF NO
[2016-09-24 18:50] LABS: BASOPHIL # 0.1 10^3/ul (0.0-0.1); BASOPHILS % 0.4 % (0.0-2.0); EOSINOPHILS # 0.2 10^3/ul (0.0-0.5); EOSINOPHILS % 1.3 % (0.0-7.0); HEMATOCRIT 40.7 % (42.0-52.0); HEMOGLOBIN 13.6 g/dl (14.0-18.0); LYMPHOCYTES # 1.2 10^3/ul (0.8-2.9); LYMPHOCYTES % 10.7 % (15.0-51.0); MEAN CORPUSCULAR HEMOGLOBIN 29.2 pg (29.0-33.0); MEAN CORPUSCULAR HGB CONC 33.4 g/dl (32.0-37.0); MEAN CORPUSCULAR VOLUME 87.5 fl (82.0-101.0); MEAN PLATELET VOLUME 11.7 fl (7.4-10.4); NEUTROPHIL # 8.9 10^3/ul (1.6-7.5); NEUTROPHILS % 78.2 % (39.0-77.0); PLATELET COUNT 180 10^3/UL (140-415); RED BLOOD COUNT 4.65 10^6/ul (4.70-6.10); WHITE BLOOD COUNT 11.4 10^3/ul (4.8-10.8)
[2016-09-24] MEDS: ATORVASTATIN 10 MG TAB NGT SCH (20:52)
--- NOTE | 2016-09-24 21:32 | CONS ---
Date/Time of Note Date/Time of Note DATE: 09/24/16 TIME: 21:17 Assessment/Plan Assessment/Plan Chief Complaint/Hosp Course Gross hematuria most likely related to some pulling on the Parra catheter as well as patient being on Eliquis. Recommend keep the Parra catheter in place make sure there is no pulling on the catheter and the Eliquis has been stopped. If the urine continues to be bloody will try to hand irrigate the catheter in a.m. Problems: Consultation Date/Type/Reason Admit Date/Time Aug 30, 2016 at 23:34 Date of Consultation: Sep 24, 2016 Type of Consultation: urology Reason for Consultation Gross hematuria Referring Provider: ERIK MORTON Hx of Present Illness Patient is on respirator has an indwelling Parra catheter. He was noted today to have a gross hematuria therefore a urological consultation was requested I did review his medical record the different clinical progress notes and the consultations. The patient has the following problems: History of atrial fibrillation and has been on Eliquis and that was stopped today after the bleeding, congestive heart failure. History of alcohol abuse and liver disease. Hypertension, chronic obstructive pulmonary disease, Subjective hx not possible: pt non-verbal Constitutional: other (Patient is on a respirator), requiring O2 Eyes: no complaints ENT: no complaints Respiratory: other (vent dependent) Cardiovascular: no complaints Gastrointestinal: no complaints Genitourinary: other (parra in place, draining bloody urine) Musculoskeletal: no complaints Skin: no complaints Neurologic: no complaints Lymphatic: no complaints Psychological: nl mood/affect, no complaints Past Medical History Medical History: congestive heart failure, coronary artery disease, hypertension, other (COPD, alcohol abuse) Past Surgical History Past Surgical Hx: no surgical history Family History Significant Family History: no pertinent family hx Social History Alcohol Use: heavy Smoking Status: Never smoker Exam/Review of Systems Vital Signs Vitals Vital Signs Date Time Temp Pulse Resp B/P Pulse Ox O2 Delivery O2 Flow Rate FiO2 09/24/16 20:00 35 09/24/16 19:00 110 23 104/73 93 Mechanical Ventilator 09/24/16 18:00 97.9 Intake and Output 09/23/16 09/23/16 09/24/16 15:00 23:00 07:00 Intake Total 390.5 ml 522.32 ml 830.46 ml Output Total 1000 ml 895 ml 2000 ml Balance -609.5 ml -372.68 ml -1169.54 ml Exam Constitutional: non-verbal Psych: no complaints Head: atraumatic, normocephalic Eyes: nl conjunctiva ENMT: other (Patient on respirator) Neck: other (Tracheostomy) Respiratory: other (Patient on ventilator) Gastrointestinal: other (Obese abdomen) Genitourinary - Male: nl penis, nl scrotum, other (Parra catheter in place and draining blood-tinged urine) Extremities: other (Onychomycosis) Neurological: lethargic Skin: nl turgor Results Result Diagram: 09/24/16 1836 09/24/16 0500 Results 24 hrs Laboratory Tests Test 09/24/16 05:00 09/24/16 07:00 09/24/16 11:25 09/24/16 13:40 White Blood Count 10.0 # Red Blood Count 4.60 L Hemoglobin 13.8 L Hematocrit 41.0 L Mean Corpuscular Volume 89.1 Mean Corpuscular Hemoglobin 30.0 Mean Corpuscular Hemoglobin Concent 33.7 Red Cell Distribution Width 14.6 H Platelet Count 184 Mean Platelet Volume 11.8 H Neutrophils % 76.1 Lymphocytes % 11.6 L Monocytes % 10.2 Eosinophils % 1.1 Basophils % 0.6 Nucleated Red Blood Cells % 0.0 Neutrophils # 7.6 H Lymphocytes # 1.2 Monocytes # 1.0 H Eosinophils # 0.1 Basophils # 0.1 Nucleated Red Blood Cells # 0.0 Sodium Level 151 H Potassium Level 3.0 L Chloride Level 113 H Carbon Dioxide Level 22 Anion Gap 19 H Blood Urea Nitrogen 21 H Creatinine 0.89 Glucose Level 123 Calcium Level 9.9 Phosphorus Level 4.9 Magnesium Level 1.8 Ammonia 66 H B-Type Natriuretic Peptide 141 H Blood Gas Specimen Source Blood arterial Blood arterial Arterial Blood Date Drawn 09/24/2016 7:06:00 AM 09/24/2016 1:40:19 PM Arterial Blood pH (Temp corrected) 7.367 7.417 Arterial Blood pCO2 (Temp correct) 38.6 37.7 Arterial Blood pO2 (Temp corrected) 95.9 69.3 L Arterial Blood HCO3 21.7 L 23.7 Arterial Blood Base Excess -3.2 L -0.4 Arterial Blood Oxygen Saturation 96.9 93.4 L Dilshad Test ACCEPTAB ACCEPTAB Arterial Blood Gas Puncture Site Right Radial Right Radial Arterial Blood Carboxyhemoglobin 0.5 0.7 Arterial Blood Methemoglobin 0.4 0.4 Blood Gas A-a O2 Differential 108.8 H 136.4 H Oxyhemoglobin Percent 96.0 92.4 L Total Hemoglobin 15.7 15.9 Blood Gas Temperature 37.0 37.0 Blood Gas Respiration Rate 20.0 Blood Gas Actual Respiration Rate 22 32 Blood Gas Modality VENT - AC VENT - CPAP FiO2 35.0 35.0 Blood Gas Tidal Volume 550.0 Blood Gas Notified Whom TM TM Blood Gas Notified Time 09/24/2016 7:28:00 AM 09/24/2016 1:48:58 PM Urine Color ALLIE Urine Clarity CLOUDY A Urine pH 5.0 Urine Specific [place] 1.032 H Urine Ketones NEGATIVE Urine Nitrite NEGATIVE Urine Bilirubin NEGATIVE Urine Urobilinogen 2+ H Urine Leukocyte Esterase NEGATIVE Urine Microscopic RBC > 182 H Urine Microscopic WBC 98 H Urine Bacteria FEW A Urine Mucus FEW A Urine Hemoglobin 3+ H Urine Glucose NEGATIVE Urine Total Protein 2+ H Blood Gas High PEEP Setting 5.0 Blood Gas Pressure Support 10 Test 09/24/16 15:30 09/24/16 18:36 Prothrombin Time 16.8 H Prothrombin Time Ratio 1.3 INR International Normalized Ratio 1.36 Activated Partial Thromboplast Time 32.7 White Blood Count 11.4 H Red Blood Count 4.65 L Hemoglobin 13.6 L Hematocrit 40.7 L Mean Corpuscular Volume 87.5 Mean Corpuscular Hemoglobin 29.2 Mean Corpuscular Hemoglobin Concent 33.4 Red Cell Distribution Width 15.0 H Platelet Count 180 Mean Platelet Volume 11.7 H Neutrophils % 78.2 H Lymphocytes % 10.7 L Monocytes % 9.0 Eosinophils % 1.3 Basophils % 0.4 Nucleated Red Blood Cells % 0.0 Neutrophils # 8.9 H Lymphocytes # 1.2 Monocytes # 1.0 H Eosinophils # 0.2 Basophils # 0.1 Nucleated Red Blood Cells # 0.0 Medications Medications Current Medications Morphine Sulfate (morphine) 3 mg Q4H PRN IV PAIN; Start 08/31/16 at 01:00 Ondansetron HCl (Zofran Inj) 4 mg Q6H PRN IV NAUSEA AND/OR VOMITING Last administered on 09/18/16t 12:37; Admin Dose 4 MG; Start 08/31/16 at 02:00 Morphine Sulfate 2 mg 2 mg Q4H PRN IV PAIN LEVEL 7-10 Last administered on 09/14 09:45; Admin Dose 2 MG; Start 08/31/16 at 02:00 Propofol 100 ml @ 4.695 mls/ hr Q12H IV Last administered on 09/24/16 20:52; Admin Dose 14.085 MLS/HR; Start 09/07/16 at 13:30 Norepinephrine/ Dextrose (Levophed/D5W) 500 ml @ 1.87 mls/hr TITRATE IV Last administered on 09/15/16 06:19; Admin Dose 1.87 MLS/HR; Start 09/07/16 at 17:00 IV Flush (NS 10 ml) 10 ml PRN PRN IV IV PROTOCOL; Start 09/08/16 at 17:00 Potassium Chloride (Potassium Chloride Pwd/Soln) 20 meq BID NGT Last administered on 09/24/16 20:51; Admin Dose 20 MEQ; Start 09/11/16 at 21:00 Atorvastatin Calcium (Lipitor) 10 mg QHS NGT Last administered on 09/24/16 20: 52; Admin Dose 10 MG; Start 09/11/16 at 20:06 Digoxin (Digoxin) 0.125 mg DAILY@13 NGT Last administered on 09/24/16 13:03; Admin Dose 0.125 MG; Start 09/11/16 at 20:06 Famotidine (Pepcid) 20 mg BID NGT Last administered on 09/24/16 20:51; Admin Dose 20 MG; Start 09/11/16 at 20:06 Ferrous Sulfate (Feosol Liquid Cup) 300 mg DAILY NGT Last administered on 08:25; Admin Dose 300 MG; Start 09/12/16 at 09:00 Folic Acid (Folic Acid) 1 mg DAILY NGT Last administered on 09/24/16 08:25; Admin Dose 1 MG; Start 09/11/16 at 20:10 Losartan Potassium (Cozaar) 50 mg BID NGT ; Start 09/11/16 at 20:10; Status Future Hold Multivitamins Therapeutic (Theragran) 1 tab DAILY NGT Last administered on 08:25; Admin Dose 1 TAB; Start 09/11/16 at 20:11 Thiamine HCl (Vitamin B1) 100 mg DAILY NGT Last administered on 09/24/16 08:25 ; Admin Dose 100 MG; Start 09/11/16 at 20:11 Bisacodyl (Dulcolax Supp) 10 mg DAILY PRN SC CONSTIPATION Last administered on 09/21/16 15:18; Admin Dose 10 MG; Start 09/14/16 at 09:00 Diltiazem HCl 60 mg 60 mg QID NGT Last administered on 09/24/16 20:51; Admin Dose 60 MG; Start 09/16/16 at 13:00 Phenylephrine HCl/ Dextrose (Jacinto-Syneph/D5W) 500 ml @ 75 mls/hr TITRATE IV ; Start 09/16/16 at 18:30 Apixaban (Eliquis) 2.5 mg BID PO Last administered on 09/24/16 08:25; Admin Dose 2.5 MG; Start 09/20/16 at 21:00; Status Future Hold Loperamide HCl (Imodium Cap) 2 mg QID PRN PO DIARRHEA Last administered on 16:00; Admin Dose 2 MG; Start 09/22/16 at 10:00 Lactulose (Enulose) 60 gm Q6 NGT Last administered on 09/24/16 18:57; Admin Dose 60 GM; Start 09/23/16 at 12:00 Potassium Chloride (Potassium Chloride Pwd/Soln) 40 meq ONCE NGT Last administered on 09/24/16 13:02; Admin Dose 40 MEQ; Start 09/24/16 at 13:00; Stop 09/24/16 at 23:00 Acetaminophen (Tylenol Liquid) 650 mg Q4H PRN NGT PAIN AND OR ELEVATED TEMP Last administered on 09/24/16 08:25; Admin Dose 650 MG; Start 09/24/16 at 08:00 Furosemide (Lasix) 40 mg DAILY IV Last administered on 09/24/16 11:14; Admin Dose 40 MG; Start 09/24/16 at 10:30 CAYLA STOCKTON MD Sep 24, 2016 21:27
[2016-09-25] VITALS (55 sets, daily range): BP systolic 82–149; BP diastolic 61–97; PULSE 103–147; RESP 18–38
[2016-09-25] MEDS: ACETAMINOPHEN 650MG/20.3ML CUP NGT PRN ×2 (00:01→09:57)
[2016-09-25] MEDS: LACTULOSE 30ML CUP NGT SCH ×4 (00:01→17:01)
[2016-09-25] MEDS: ALBUTEROL 18 GM INHALER INH SCH ×4 (02:00→20:28)
[2016-09-25] MEDS: IPRATROPIUM (HFA) 12.9 GM INHALER INH SCH ×4 (02:00→20:28)
[2016-09-25 04:32] LABS: ADD SCAN DIFF NO
[2016-09-25 04:44] LABS: BASOPHIL # 0.1 10^3/ul (0.0-0.1); BASOPHILS % 0.6 % (0.0-2.0); EOSINOPHILS # 0.2 10^3/ul (0.0-0.5); EOSINOPHILS % 1.6 % (0.0-7.0); HEMATOCRIT 40.7 % (42.0-52.0); HEMOGLOBIN 13.3 g/dl (14.0-18.0); LYMPHOCYTES # 1.2 10^3/ul (0.8-2.9); LYMPHOCYTES % 10.9 % (15.0-51.0); MEAN CORPUSCULAR HGB CONC 32.7 g/dl (32.0-37.0); MEAN CORPUSCULAR VOLUME 88.9 fl (82.0-101.0); MONOCYTE # 0.9 10^3/ul (0.3-0.9); MONOCYTES % 8.4 % (0.0-11.0); NEUTROPHIL # 8.4 10^3/ul (1.6-7.5); NEUTROPHILS % 78.2 % (39.0-77.0); PLATELET COUNT 171 10^3/UL (140-415); RED BLOOD COUNT 4.58 10^6/ul (4.70-6.10); RED CELL DISTRIBUTION WIDTH 15.2 % (11.5-14.5); WHITE BLOOD COUNT 10.8 10^3/ul (4.8-10.8)
[2016-09-25 04:59] LABS: ALBUMIN 3.6 g/dl (3.3-4.9); ALBUMIN/GLOBULIN RATIO 0.94; BILIRUBIN,INDIRECT 0.7 mg/dl (0-1.1); BILIRUBIN,TOTAL 0.7 mg/dl (0.2-1.3); CALCIUM 9.3 mg/dl (8.4-10.2); CREATININE 0.82 mg/dl (0.61-1.24); MAGNESIUM 1.9 mg/dl (1.7-2.5); POTASSIUM 3.1 mmol/L (3.5-5.1); TOTAL PROTEIN 7.4 g/dl (6.1-8.1)
[2016-09-25] MEDS ORDERED: POTASSIUM CHLORIDE (SR) 20 MEQ TAB PO ONE (06:45)
--- NOTE | 2016-09-25 06:53 | PN ---
Date/Time of Note Date/Time of Note DATE: 09/25/16 TIME: 06:47 Assessment/Plan VTE Prophylaxis VTE Prophylaxis Intervention: SCD's, other Lines/Catheters IV Catheter Type (from Nrs): PICC Line Central line still needed: Yes Urinary Cath still in place: Yes Reason Cath still needed: other (indicate) Assessment/Plan Chief Complaint/Hosp Course 1. Atrial fibrillation: chronic and is on HR control. 2. Chest pain has resolved. 3. Chronic obstructive pulmonary disease/ resp failure 4. Alcoholic liver disease. 5. Thrombocytopenia: improved now 6. Morbid obesity. 7. Hyponatremia. 8. Hypomagnesemia, hypo K 9. hypoxemic respiratory failure: intubated now. may need trach if unable to wean off. 10. hematuria: being evaluated by 11. anemia RECOMMENDATIONS: Correct electrolytes including magnesium, KCL respiratory care and vent support as per pulmonary. aggressive suctioning. off of amiodarone, due to the fact that the patient is in chronic atrial fibrillation and has severe pulmonary disease, is best to control heart rate with other medications. cont digoxin to control the heart rate better. will extra dose today and check dig level in AM cont cardizem to control HR OFF of betablocker due to pulm disease. ELIQUIS is on hold due to HEMATURIA diuresis as tolerated. more than 39 minutes of critical care time was spent in management and treatment of this critically ill patient, excluding any procedures. Problems: Subjective 24 Hr Interval Summary Free Text/Dictation CARDIOLOGY/ critical care FOLLOW UP NOTE; d/w staff and rhythm was reviewed. pt remains in Afib. HR has been overall stable BUT intermittently elevated when he is getting off of the sedation. no pauses noted. pt remains nonverbal on vent. pt with increasing hematuria. eliquis is on hold now. . OBJECTIVE: General: Patient is intubated on the vent in ICU. Obese. Respiratory:mild rhonchi heard anteriorly. Gastrointestinal: obese soft no rebound or guarding noted. Extremity + lower extremity edema , but improved neuro : opens his eye to verbal stimuli. pysch: Appear to be calm. Head: atraumatic, normocephalic Eyes: EOMI, nl conjunctiva Cardiovascular: irregular rhythm, systolic murmur : s/p parra in place. Exam/Review of Systems Vital Signs Vitals Vital Signs Date Time Temp Pulse Resp B/P Pulse Ox O2 Delivery O2 Flow Rate FiO2 09/25/16 06:30 137 24 122/88 91 Mechanical Ventilator 09/25/16 05:03 35 09/25/16 04:00 100.1 Intake and Output 09/24/16 09/24/16 09/25/16 15:00 23:00 07:00 Intake Total 1318.900 ml 762.035 ml 612.35 ml Output Total 1600 ml 710 ml 305 ml Balance -281.100 ml 52.035 ml 307.35 ml Results Result Diagram: 09/25/16 0415 09/25/16 0415 Results 24 hrs Laboratory Tests Test 09/24/16 07:00 09/24/16 11:25 09/24/16 13:40 09/24/16 15:30 Blood Gas Specimen Source Blood arterial Blood arterial Arterial Blood Date Drawn 09/24/2016 7:06:00 AM 09/24/2016 1:40:19 PM Arterial Blood pH (Temp corrected) 7.367 7.417 Arterial Blood pCO2 (Temp correct) 38.6 37.7 Arterial Blood pO2 (Temp corrected) 95.9 69.3 L Arterial Blood HCO3 21.7 L 23.7 Arterial Blood Base Excess -3.2 L -0.4 Arterial Blood Oxygen Saturation 96.9 93.4 L Dilshad Test ACCEPTAB ACCEPTAB Arterial Blood Gas Puncture Site Right Radial Right Radial Arterial Blood Carboxyhemoglobin 0.5 0.7 Arterial Blood Methemoglobin 0.4 0.4 Blood Gas A-a O2 Differential 108.8 H 136.4 H Oxyhemoglobin Percent 96.0 92.4 L Total Hemoglobin 15.7 15.9 Blood Gas Temperature 37.0 37.0 Blood Gas Respiration Rate 20.0 Blood Gas Actual Respiration Rate 22 32 Blood Gas Modality VENT - AC VENT - CPAP FiO2 35.0 35.0 Blood Gas Tidal Volume 550.0 Blood Gas Notified Whom TM TM Blood Gas Notified Time 09/24/2016 7:28:00 AM 09/24/2016 1:48:58 PM Urine Color ALLIE Urine Clarity CLOUDY A Urine pH 5.0 Urine Specific [place] 1.032 H Urine Ketones NEGATIVE Urine Nitrite NEGATIVE Urine Bilirubin NEGATIVE Urine Urobilinogen 2+ H Urine Leukocyte Esterase NEGATIVE Urine Microscopic RBC > 182 H Urine Microscopic WBC 98 H Urine Bacteria FEW A Urine Mucus FEW A Urine Hemoglobin 3+ H Urine Glucose NEGATIVE Urine Total Protein 2+ H Blood Gas High PEEP Setting 5.0 Blood Gas Pressure Support 10 Prothrombin Time 16.8 H Prothrombin Time Ratio 1.3 INR International Normalized Ratio 1.36 Activated Partial Thromboplast Time 32.7 Test 09/24/16 18:36 09/25/16 04:15 09/25/16 05:00 White Blood Count 11.4 H 10.8 Red Blood Count 4.65 L 4.58 L Hemoglobin 13.6 L 13.3 L Hematocrit 40.7 L 40.7 L Mean Corpuscular Volume 87.5 88.9 Mean Corpuscular Hemoglobin 29.2 29.0 Mean Corpuscular Hemoglobin Concent 33.4 32.7 Red Cell Distribution Width 15.0 H 15.2 H Platelet Count 180 171 Mean Platelet Volume 11.7 H 12.0 H Neutrophils % 78.2 H 78.2 H Lymphocytes % 10.7 L 10.9 L Monocytes % 9.0 8.4 Eosinophils % 1.3 1.6 Basophils % 0.4 0.6 Nucleated Red Blood Cells % 0.0 0.0 Neutrophils # 8.9 H 8.4 H Lymphocytes # 1.2 1.2 Monocytes # 1.0 H 0.9 Eosinophils # 0.2 0.2 Basophils # 0.1 0.1 Nucleated Red Blood Cells # 0.0 0.0 Sodium Level 150 H Potassium Level 3.1 L Chloride Level 111 H Carbon Dioxide Level 26 Anion Gap 16 Blood Urea Nitrogen 21 H Creatinine 0.82 Glucose Level 133 Calcium Level 9.3 Magnesium Level 1.9 Total Bilirubin 0.7 Direct Bilirubin 0.00 Indirect Bilirubin 0.7 Aspartate Amino Transf (AST/SGOT) 43 Alanine Aminotransferase (ALT/SGPT) 45 Alkaline Phosphatase 126 H Total Protein 7.4 Albumin 3.6 Globulin 3.80 H Albumin/Globulin Ratio 0.94 Digoxin Level < 0.4 L Ammonia 48 H Medications Medications Current Medications Morphine Sulfate (morphine) 3 mg Q4H PRN IV PAIN; Start 08/31/16 at 01:00 Ondansetron HCl (Zofran Inj) 4 mg Q6H PRN IV NAUSEA AND/OR VOMITING Last administered on 09/18/16 12:37; Admin Dose 4 MG; Start 08/31/16 at 02:00 Morphine Sulfate 2 mg 2 mg Q4H PRN IV PAIN LEVEL 7-10 Last administered on 09/14 09:45; Admin Dose 2 MG; Start 08/31/16 at 02:00 Propofol 100 ml @ 4.695 mls/ hr Q12H IV Last administered on 09/24/16 20:52; Admin Dose 14.085 MLS/HR; Start 09/07/16 at 13:30 Norepinephrine/ Dextrose (Levophed/D5W) 500 ml @ 1.87 mls/hr TITRATE IV Last administered on 09/15/16 06:19; Admin Dose 1.87 MLS/HR; Start 09/07/16 at 17:00 IV Flush (NS 10 ml) 10 ml PRN PRN IV IV PROTOCOL; Start 09/08/16 at 17:00 Potassium Chloride (Potassium Chloride Pwd/Soln) 20 meq BID NGT Last administered on 09/24/16 20:51; Admin Dose 20 MEQ; Start 09/11/16 at 21:00 Atorvastatin Calcium (Lipitor) 10 mg QHS NGT Last administered on 09/24/16 20: 52; Admin Dose 10 MG; Start 09/11/16 at 20:06 Digoxin (Digoxin) 0.125 mg DAILY@13 NGT Last administered on 09/24/16 13:03; Admin Dose 0.125 MG; Start 09/11/16 at 20:06 Famotidine (Pepcid) 20 mg BID NGT Last administered on 09/24/16 20:51; Admin Dose 20 MG; Start 09/11/16 at 20:06 Ferrous Sulfate (Feosol Liquid Cup) 300 mg DAILY NGT Last administered on 08:25; Admin Dose 300 MG; Start 09/12/16 at 09:00 Folic Acid (Folic Acid) 1 mg DAILY NGT Last administered on 09/24/16 08:25; Admin Dose 1 MG; Start 09/11/16 at 20:10 Losartan Potassium (Cozaar) 50 mg BID NGT ; Start 09/11/16 at 20:10; Status Future Hold Multivitamins Therapeutic (Theragran) 1 tab DAILY NGT Last administered on 08:25; Admin Dose 1 TAB; Start 09/11/16 at 20:11 Thiamine HCl (Vitamin B1) 100 mg DAILY NGT Last administered on 09/24/16 08:25 ; Admin Dose 100 MG; Start 09/11/16 at 20:11 Bisacodyl (Dulcolax Supp) 10 mg DAILY PRN [place] CONSTIPATION Last administered on 09/21/16 15:18; Admin Dose 10 MG; Start 09/14/16 at 09:00 Diltiazem HCl 60 mg 60 mg QID NGT Last administered on 09/24/16 20:51; Admin Dose 60 MG; Start 09/16/16 at 13:00 Phenylephrine HCl/ Dextrose (Jacinto-Syneph/D5W) 500 ml @ 75 mls/hr TITRATE IV ; Start 09/16/16 at 18:30 Apixaban (Eliquis) 2.5 mg BID PO Last administered on 09/24/16 08:25; Admin Dose 2.5 MG; Start 09/20/16 at 21:00; Status Future Hold Loperamide HCl (Imodium Cap) 2 mg QID PRN PO DIARRHEA Last administered on 16:00; Admin Dose 2 MG; Start 09/22/16 at 10:00 Lactulose (Enulose) 60 gm Q6 NGT Last administered on 09/25/16 05:14; Admin Dose 60 GM; Start 09/23/16 at 12:00 Acetaminophen (Tylenol Liquid) 650 mg Q4H PRN NGT PAIN AND OR ELEVATED TEMP Last administered on 09/25/16 00:01; Admin Dose 650 MG; Start 09/24/16 at 08:00 Furosemide (Lasix) 40 mg DAILY IV Last administered on 09/24/16 11:14; Admin Dose 40 MG; Start 09/24/16 at 10:30 TAL ABREU MD Sep 25, 2016 06:52
[2016-09-25] MEDS: POTASSIUM CHLORIDE 20 MEQ POWDER FOR ORAL SOLN NGT SCH ×2 (06:59→22:06)
[2016-09-25] MEDS ORDERED: POTASSIUM CHLORIDE 250 ML IVPB ONE (07:00)
[2016-09-25] MEDS ORDERED: DIGOXIN 500 MCG INJ IV ONE (07:00)
[2016-09-25] MEDS ORDERED: MAGNESIUM SULFATE 2 GM/50 ML 50 ML IVPB ONE (07:00)
[2016-09-25] MEDS ORDERED: POTASSIUM CHLORIDE 20 MEQ POWDER FOR ORAL SOLN NGT ONE (07:00)
--- NOTE | 2016-09-25 07:04 | RADRPT ---
PROCEDURE: XR Chest. CLINICAL INDICATION: Shortness of breath TECHNIQUE: A single AP view of the chest was obtained. COMPARISON: Chest x-ray dated 09/24/2016 FINDINGS: The endotracheal tube tip is approximately 5.2 cm above the amber. The tip of the enteric tube ex tends below the left diaphragm. There is a right upper extremity PICC line with tip near the cavoatr ial junction. Lung volumes are low with compressive changes, vascular crowding and basilar atelectasis. No focal a irspace opacity, pleural effusion or pneumothorax is seen. The cardiomediastinal silhouette is mild ly enlarged. At X aorta The osseous structures are unremarkable. IMPRESSION: 1. Low lung volumes with compressive changes and basilar atelectasis. No significant interval nash e. 2. Mild cardiomegaly and aortic atherosclerosis. 3. Tubes and lines, as described above. RPTAT: HH .Geeta Escoto MD, MD Date Time Electronically viewed and signed by .Geeta Escoto MD, on 09/25/2016 07:04 .Erin/
[2016-09-25] MEDS ORDERED: VANCOMYCIN IV PER PHARMACY XX SCH (08:00)
--- NOTE | 2016-09-25 08:17 | PN ---
Date/Time of Note Date/Time of Note DATE: 09/25/16 TIME: 08:08 Assessment/Plan VTE Prophylaxis VTE Prophylaxis Intervention: SCD's Lines/Catheters IV Catheter Type (from Nrs): PICC Line Central line still needed: Yes Urinary Cath still in place: Yes Reason Cath still needed: other (indicate) (Monitoring his urine output while on the respirator) Assessment/Plan Chief Complaint/Hosp Course Gross hematuria most likely from the kidneys as the bladder irrigation cleared the urine and there were no clots or blood clots in the bladder. The Eliquis has been stopped yesterday we will watch the color of the urine and if the hematuria continues we may later on do a CAT scan of the abdomen and pelvis and that is when his medical condition improves Problems: Subjective 24 Hr Interval Summary Free Text/Dictation Patient is on the respirator and has no complaints but he does have gross hematuria Subjective hx not possible: pt non-verbal Constitutional: no complaints Eyes: no complaints ENT: no complaints Respiratory: other (Patient is on ventilator) Gastrointestinal: other (Patient has a rectal tube) Genitourinary: hematuria Skin: other (Patient has onychomycosis) Exam/Review of Systems Vital Signs Vitals Vital Signs Date Time Temp Pulse Resp B/P Pulse Ox O2 Delivery O2 Flow Rate FiO2 09/25/16 06:30 137 24 122/88 91 Mechanical Ventilator 09/25/16 05:03 35 09/25/16 04:00 100.1 Intake and Output 09/24/16 09/24/16 09/25/16 15:00 23:00 07:00 Intake Total 1318.900 ml 762.035 ml 612.35 ml Output Total 1600 ml 710 ml 305 ml Balance -281.100 ml 52.035 ml 307.35 ml Exam Patient is on the ventilator Head: normocephalic Eyes: nl conjunctiva Respiratory: other (Patient is on a ventilator) Gastrointestinal: other (Patient has rectal tube) Genitourinary - Male: other (Hematuria I did hand irrigate the bladder was normal saline there are no blood clots in the bladder and that is indicating that the bleeding is coming from his kidney and not from his bladder) Extremities: other (Onychomycosis) Results Result Diagram: 09/25/16 0415 09/25/16 0415 Results 24 hrs Laboratory Tests Test 09/24/16 11:25 09/24/16 13:40 09/24/16 15:30 09/24/16 18:36 Urine Color ALLIE Urine Clarity CLOUDY A Urine pH 5.0 Urine Specific [place] 1.032 H Urine Ketones NEGATIVE Urine Nitrite NEGATIVE Urine Bilirubin NEGATIVE Urine Urobilinogen 2+ H Urine Leukocyte Esterase NEGATIVE Urine Microscopic RBC > 182 H Urine Microscopic WBC 98 H Urine Bacteria FEW A Urine Mucus FEW A Urine Hemoglobin 3+ H Urine Glucose NEGATIVE Urine Total Protein 2+ H Blood Gas Specimen Source Blood arterial Arterial Blood Date Drawn 09/24/2016 1:40:19 PM Arterial Blood pH (Temp corrected) 7.417 Arterial Blood pCO2 (Temp correct) 37.7 Arterial Blood pO2 (Temp corrected) 69.3 L Arterial Blood HCO3 23.7 Arterial Blood Base Excess -0.4 Arterial Blood Oxygen Saturation 93.4 L Dilshad Test ACCEPTAB Arterial Blood Gas Puncture Site Right Radial Arterial Blood Carboxyhemoglobin 0.7 Arterial Blood Methemoglobin 0.4 Blood Gas A-a O2 Differential 136.4 H Oxyhemoglobin Percent 92.4 L Total Hemoglobin 15.9 Blood Gas Temperature 37.0 Blood Gas Actual Respiration Rate 32 Blood Gas Modality VENT - CPAP FiO2 35.0 Blood Gas High PEEP Setting 5.0 Blood Gas Pressure Support 10 Blood Gas Notified Whom TM Blood Gas Notified Time 09/24/2016 1:48:58 PM Prothrombin Time 16.8 H Prothrombin Time Ratio 1.3 INR International Normalized Ratio 1.36 Activated Partial Thromboplast Time 32.7 White Blood Count 11.4 H Red Blood Count 4.65 L Hemoglobin 13.6 L Hematocrit 40.7 L Mean Corpuscular Volume 87.5 Mean Corpuscular Hemoglobin 29.2 Mean Corpuscular Hemoglobin Concent 33.4 Red Cell Distribution Width 15.0 H Platelet Count 180 Mean Platelet Volume 11.7 H Neutrophils % 78.2 H Lymphocytes % 10.7 L Monocytes % 9.0 Eosinophils % 1.3 Basophils % 0.4 Nucleated Red Blood Cells % 0.0 Neutrophils # 8.9 H Lymphocytes # 1.2 Monocytes # 1.0 H Eosinophils # 0.2 Basophils # 0.1 Nucleated Red Blood Cells # 0.0 Test 09/25/16 04:15 09/25/16 05:00 White Blood Count 10.8 Red Blood Count 4.58 L Hemoglobin 13.3 L Hematocrit 40.7 L Mean Corpuscular Volume 88.9 Mean Corpuscular Hemoglobin 29.0 Mean Corpuscular Hemoglobin Concent 32.7 Red Cell Distribution Width 15.2 H Platelet Count 171 Mean Platelet Volume 12.0 H Neutrophils % 78.2 H Lymphocytes % 10.9 L Monocytes % 8.4 Eosinophils % 1.6 Basophils % 0.6 Nucleated Red Blood Cells % 0.0 Neutrophils # 8.4 H Lymphocytes # 1.2 Monocytes # 0.9 Eosinophils # 0.2 Basophils # 0.1 Nucleated Red Blood Cells # 0.0 Sodium Level 150 H Potassium Level 3.1 L Chloride Level 111 H Carbon Dioxide Level 26 Anion Gap 16 Blood Urea Nitrogen 21 H Creatinine 0.82 Glucose Level 133 Calcium Level 9.3 Phosphorus Level 3.4 Magnesium Level 1.9 Total Bilirubin 0.7 Direct Bilirubin 0.00 Indirect Bilirubin 0.7 Aspartate Amino Transf (AST/SGOT) 43 Alanine Aminotransferase (ALT/SGPT) 45 Alkaline Phosphatase 126 H Total Protein 7.4 Albumin 3.6 Globulin 3.80 H Albumin/Globulin Ratio 0.94 Digoxin Level < 0.4 L Ammonia 48 H Medications Medications Current Medications Morphine Sulfate (morphine) 3 mg Q4H PRN IV PAIN; Start 08/31/16 at 01:00 Ondansetron HCl (Zofran Inj) 4 mg Q6H PRN IV NAUSEA AND/OR VOMITING Last administered on 09/18/16 12:37; Admin Dose 4 MG; Start 08/31/16 at 02:00 Morphine Sulfate 2 mg 2 mg Q4H PRN IV PAIN LEVEL 7-10 Last administered on 09/14 09:45; Admin Dose 2 MG; Start 08/31/16 at 02:00 Propofol 100 ml @ 4.695 mls/ hr Q12H IV Last administered on 09/24/16 20:52; Admin Dose 14.085 MLS/HR; Start 09/07/16 at 13:30 Norepinephrine/ Dextrose (Levophed/D5W) 500 ml @ 1.87 mls/hr TITRATE IV Last administered on 09/15/16 06:19; Admin Dose 1.87 MLS/HR; Start 09/07/16 at 17:00 IV Flush (NS 10 ml) 10 ml PRN PRN IV IV PROTOCOL; Start 09/08/16 at 17:00 Potassium Chloride (Potassium Chloride Pwd/Soln) 20 meq BID NGT Last administered on 09/25/16 06:59; Admin Dose 20 MEQ; Start 09/11/16 at 21:00 Atorvastatin Calcium (Lipitor) 10 mg QHS NGT Last administered on 09/24/16 20: 52; Admin Dose 10 MG; Start 09/11/16 at 20:06 Digoxin (Digoxin) 0.125 mg DAILY@13 NGT Last administered on 09/24/16 13:03; Admin Dose 0.125 MG; Start 09/11/16 at 20:06 Famotidine (Pepcid) 20 mg BID NGT Last administered on 09/24/16 20:51; Admin Dose 20 MG; Start 09/11/16 at 20:06 Ferrous Sulfate (Feosol Liquid Cup) 300 mg DAILY NGT Last administered on 08:25; Admin Dose 300 MG; Start 09/12/16 at 09:00 Folic Acid (Folic Acid) 1 mg DAILY NGT Last administered on 09/24/16 08:25; Admin Dose 1 MG; Start 09/11/16 at 20:10 Losartan Potassium (Cozaar) 50 mg BID NGT ; Start 09/11/16 at 20:10; Status Future Hold Multivitamins Therapeutic (Theragran) 1 tab DAILY NGT Last administered on 08:25; Admin Dose 1 TAB; Start 09/11/16 at 20:11 Thiamine HCl (Vitamin B1) 100 mg DAILY NGT Last administered on 09/24/16 08:25 ; Admin Dose 100 MG; Start 09/11/16 at 20:11 Bisacodyl (Dulcolax Supp) 10 mg DAILY PRN [place] CONSTIPATION Last administered on 09/21/16 15:18; Admin Dose 10 MG; Start 09/14/16 at 09:00 Diltiazem HCl 60 mg 60 mg QID NGT Last administered on 09/24/16 20:51; Admin Dose 60 MG; Start 09/16/16 at 13:00 Phenylephrine HCl/ Dextrose (Jacinto-Syneph/D5W) 500 ml @ 75 mls/hr TITRATE IV ; Start 09/16/16 at 18:30 Apixaban (Eliquis) 2.5 mg BID PO Last administered on 09/24/16 08:25; Admin Dose 2.5 MG; Start 09/20/16 at 21:00; Status Future Hold Loperamide HCl (Imodium Cap) 2 mg QID PRN PO DIARRHEA Last administered on 16:00; Admin Dose 2 MG; Start 09/22/16 at 10:00 Lactulose (Enulose) 60 gm Q6 NGT Last administered on 09/25/16 05:14; Admin Dose 60 GM; Start 09/23/16 at 12:00 Acetaminophen (Tylenol Liquid) 650 mg Q4H PRN NGT PAIN AND OR ELEVATED TEMP Last administered on 09/25/16 00:01; Admin Dose 650 MG; Start 09/24/16 at 08:00 Furosemide 40 mg 40 mg DAILY IV Last administered on 09/24/16 11:14; Admin Dose 40 MG; Start 09/24/16 at 10:30 Magnesium Sulfate 50 ml @ 25 mls/hr ONCE ONCE IVPB Last administered on 06:58; Admin Dose 25 MLS/HR; Start 09/25/16 at 07:00; Stop 09/25/16 at 08:59 Potassium Chloride 250 ml @ 62.5 mls/hr ONCE ONCE IVPB ; Start 09/25/16 at 07: 00; Stop 09/25/16 at 10:59 Cefepime HCl (Maxipime 1gm/50 ml (Pmx)) 50 ml @ 100 mls/hr Q12 IVPB ; Start 09/25/16 at 08:30 CAYLA STOCKTON MD Sep 25, 2016 08:17
[2016-09-25] MEDS: CEFEPIME 1GM/50 ML (PMX) 50 ML IVPB SCH (08:18)
[2016-09-25] MEDS: PROPOFOL 100 ML IV SCH ×4 (08:18→23:50)
[2016-09-25] MEDS: FOLIC ACID 1 MG TAB NGT SCH (08:19)
[2016-09-25] MEDS: THIAMINE 100 MG TAB NGT SCH (08:19)
[2016-09-25] MEDS: DILTIAZEM 60 MG TAB NGT SCH ×4 (08:19→22:06)
[2016-09-25] MEDS: FERROUS SULFATE 60 MG/ML 5ML CUP NGT SCH (08:19)
[2016-09-25] MEDS: FUROSEMIDE 40 MG INJ IV SCH (08:19)
[2016-09-25] MEDS: FAMOTIDINE 20 MG TAB NGT SCH ×2 (08:19→22:06)
--- NOTE | 2016-09-25 08:42 | PN ---
Date/Time of Note Date/Time of Note DATE: 09/25/16 TIME: 08:37 Assessment/Plan VTE Prophylaxis VTE Prophylaxis Intervention: contraindicated VTE Contraindication Reason: bleeding Lines/Catheters IV Catheter Type (from Nrsg): PICC Line Central line still needed: Yes Urinary Cath still in place: Yes Reason Cath still needed: urinary retention Assessment/Plan Chief Complaint/Hosp Course A/P: 56-year-old morbidly obese male with BMI of 54, with history of hypertension, decompensated alcoholic cirrhosis, anemia who was transferred from [facility] after he presented there with chest pain, now res failure, intubated. 1. Acute respiratory failure. Acute on chronic. Hypoxic and hypercapnic. Pt intubated on 09/07/2016 because of worsening respiratory distress. Failed CPAP trial last few days. - Ventilator management as per Pulmonary. 2. Essential hypertension. Status post pressors for episode of hypotension. BP now improved - monitor, continue current antihypertensives 3. Chronic obstructive pulmonary disease. The patient on inhaled bronchodilators. - f/u Pulmonology rec's, Duoneb's 4. Chest pain. Acute coronary syndrome ruled out. Troponins negative. - continue Dilt PO, Dig PO, IV Lasix for now, f/u CV rec's 5. Atrial fibrillation. Rate controlled. On amiodarone. - continue PO Dilt and Dig, f/u CV rec's - continue Eliquis for stroke prophylaxis 6. Alcoholic liver disease. LFT's nL, but ammonia still elevated (94 -> 88 -> 68) - monitor, holding lasix temporarily sec to need for IVF's (has elevated Na+ levels) - continue lactulose, trend NH4 7. Thrombocytopenia. Most probably from acute alcoholic liver disease. Plt now stable - have d/c'ed Zosyn, monitor for any bleeding. 8. Alcohol abuse. The patient's last drink was on the day prior to hospitalization. The patient will be maintained on daily thiamine. Status post Librium taper. 10. Possible aspiration with aspiration pneumoni - nL WBC but + fever in last 48 hrs, s/p Abx - check UA, culture, blood cx's. - Cefepime and Vanco 11. Acute on chronic CHF exacerbation. The patient's 2D echocardiogram showing ejection fraction of 55%. Diastolic dysfunction. - monitor, lasix on temp hold (see # 6) 12. Fluid, electrolytes and nutrition. NG tube feedings - but on hold sec to loose stools - cdiff = neg 13. Deep venous thrombosis prophylaxis - CI (hematuria) 14. Gastrointestinal prophylaxis. H2 receptor blockers. 15. hematuria - appreciate rec's, monitor, if worsens - consider CT A/P to further evaluate. Plan. Continue ICU monitoring. Ventilator weaning as per Pulmonary. Critical care time: 40 minutes. On 09/18/2016, doctor had a long conversation with the patient's mother with the help of a electrician regarding the patient's prognosis. The patient's mother was explained about the need for a tracheostomy if unable to wean the patient off the ventilator. Later, the patient's ex- was present in the patient's room. Talked to the patient's ex- in the presence of the patient' s mother after getting consent to talk to the patient's ex- from the mother. Patient's ex- was informed about the necessity for a tracheostomy and PEG tube placement if unable to wean the patient off the ventilator. The patient's mom and ex- verbalized understanding, and they agreed for proceeding with a tracheostomy and PEG tube placement if necessary. Will follow up with interior design consultant teams on this. Problems: Subjective 24 Hr Interval Summary Free Text/Dictation Pt with + fevers. Started on new abx last night. Still + hematuria, seen by team. Exam/Review of Systems Vital Signs Vitals Vital Signs Date Time Temp Pulse Resp B/P Pulse Ox O2 Delivery O2 Flow Rate FiO2 09/25/16 06:30 137 24 122/88 91 Mechanical Ventilator 09/25/16 05:03 35 09/25/16 04:00 100.1 Intake and Output 09/24/16 09/24/16 09/25/16 15:00 23:00 07:00 Intake Total 1318.900 ml 762.035 ml 612.35 ml Output Total 1600 ml 710 ml 305 ml Balance -281.100 ml 52.035 ml 307.35 ml Exam GENERAL:obese male patient lying in orally intubated. HEENT: Head normocephalic and atraumatic. Eyes: Anicteric sclerae. Conjunctivae clear. ENT: Nasal septum is midline. NGT in place. Orally intubated. NECK: Short with increased neck circumference. RESPIRATORY: some bilaterally diminished breath sounds. CARDIAC: Irregularly irregular rhythm. S1 and S2 heard. ABDOMEN: Obese. Bowel sounds hypoactive. EXTREMITIES: No cyanosis, no clubbing. Bilateral lower extremity 1+ pitting edema. Peripheral pulses are palpable. NEUROLOGIC: The patient is sedated. Results Result Diagram: 09/25/16 0415 09/25/16 0415 Results 24 hrs Laboratory Tests Test 09/24/16 11:25 09/24/16 13:40 09/24/16 15:30 09/24/16 18:36 Urine Color ALLIE Urine Clarity CLOUDY A Urine pH 5.0 Urine Specific [place] 1.032 H Urine Ketones NEGATIVE Urine Nitrite NEGATIVE Urine Bilirubin NEGATIVE Urine Urobilinogen 2+ H Urine Leukocyte Esterase NEGATIVE Urine Microscopic RBC > 182 H Urine Microscopic WBC 98 H Urine Bacteria FEW A Urine Mucus FEW A Urine Hemoglobin 3+ H Urine Glucose NEGATIVE Urine Total Protein 2+ H Blood Gas Specimen Source Blood arterial Arterial Blood Date Drawn 09/24/2016 1:40:19 PM Arterial Blood pH (Temp corrected) 7.417 Arterial Blood pCO2 (Temp correct) 37.7 Arterial Blood pO2 (Temp corrected) 69.3 L Arterial Blood HCO3 23.7 Arterial Blood Base Excess -0.4 Arterial Blood Oxygen Saturation 93.4 L Dilshad Test ACCEPTAB Arterial Blood Gas Puncture Site Right Radial Arterial Blood Carboxyhemoglobin 0.7 Arterial Blood Methemoglobin 0.4 Blood Gas A-a O2 Differential 136.4 H Oxyhemoglobin Percent 92.4 L Total Hemoglobin 15.9 Blood Gas Temperature 37.0 Blood Gas Actual Respiration Rate 32 Blood Gas Modality VENT - CPAP FiO2 35.0 Blood Gas High PEEP Setting 5.0 Blood Gas Pressure Support 10 Blood Gas Notified Whom TM Blood Gas Notified Time 09/24/2016 1:48:58 PM Prothrombin Time 16.8 H Prothrombin Time Ratio 1.3 INR International Normalized Ratio 1.36 Activated Partial Thromboplast Time 32.7 White Blood Count 11.4 H Red Blood Count 4.65 L Hemoglobin 13.6 L Hematocrit 40.7 L Mean Corpuscular Volume 87.5 Mean Corpuscular Hemoglobin 29.2 Mean Corpuscular Hemoglobin Concent 33.4 Red Cell Distribution Width 15.0 H Platelet Count 180 Mean Platelet Volume 11.7 H Neutrophils % 78.2 H Lymphocytes % 10.7 L Monocytes % 9.0 Eosinophils % 1.3 Basophils % 0.4 Nucleated Red Blood Cells % 0.0 Neutrophils # 8.9 H Lymphocytes # 1.2 Monocytes # 1.0 H Eosinophils # 0.2 Basophils # 0.1 Nucleated Red Blood Cells # 0.0 Test 09/25/16 04:15 09/25/16 05:00 White Blood Count 10.8 Red Blood Count 4.58 L Hemoglobin 13.3 L Hematocrit 40.7 L Mean Corpuscular Volume 88.9 Mean Corpuscular Hemoglobin 29.0 Mean Corpuscular Hemoglobin Concent 32.7 Red Cell Distribution Width 15.2 H Platelet Count 171 Mean Platelet Volume 12.0 H Neutrophils % 78.2 H Lymphocytes % 10.9 L Monocytes % 8.4 Eosinophils % 1.6 Basophils % 0.6 Nucleated Red Blood Cells % 0.0 Neutrophils # 8.4 H Lymphocytes # 1.2 Monocytes # 0.9 Eosinophils # 0.2 Basophils # 0.1 Nucleated Red Blood Cells # 0.0 Sodium Level 150 H Potassium Level 3.1 L Chloride Level 111 H Carbon Dioxide Level 26 Anion Gap 16 Blood Urea Nitrogen 21 H Creatinine 0.82 Glucose Level 133 Calcium Level 9.3 Phosphorus Level 3.4 Magnesium Level 1.9 Total Bilirubin 0.7 Direct Bilirubin 0.00 Indirect Bilirubin 0.7 Aspartate Amino Transf (AST/SGOT) 43 Alanine Aminotransferase (ALT/SGPT) 45 Alkaline Phosphatase 126 H Total Protein 7.4 Albumin 3.6 Globulin 3.80 H Albumin/Globulin Ratio 0.94 Digoxin Level < 0.4 L Ammonia 48 H Medications Medications Current Medications Morphine Sulfate (morphine) 3 mg Q4H PRN IV PAIN; Start 08/31/16 at 01:00 Ondansetron HCl (Zofran Inj) 4 mg Q6H PRN IV NAUSEA AND/OR VOMITING Last administered on 09/18/16 12:37; Admin Dose 4 MG; Start 08/31/16 at 02:00 Morphine Sulfate 2 mg 2 mg Q4H PRN IV PAIN LEVEL 7-10 Last administered on 09/14 09:45; Admin Dose 2 MG; Start 08/31/16 at 02:00 Propofol 100 ml @ 4.695 mls/ hr Q12H IV Last administered on 09/25/16 08:18; Admin Dose 14.085 MLS/HR; Start 09/07/16 at 13:30 Norepinephrine/ Dextrose (Levophed/D5W) 500 ml @ 1.87 mls/hr TITRATE IV Last administered on 09/15/16 06:19; Admin Dose 1.87 MLS/HR; Start 09/07/16 at 17:00 IV Flush (NS 10 ml) 10 ml PRN PRN IV IV PROTOCOL; Start 09/08/16 at 17:00 Potassium Chloride (Potassium Chloride Pwd/Soln) 20 meq BID NGT Last administered on 09/25/16 06:59; Admin Dose 20 MEQ; Start 09/11/16 at 21:00 Atorvastatin Calcium (Lipitor) 10 mg QHS NGT Last administered on 09/24/16 20: 52; Admin Dose 10 MG; Start 09/11/16 at 20:06 Digoxin (Digoxin) 0.125 mg DAILY@13 NGT Last administered on 09/24/16 13:03; Admin Dose 0.125 MG; Start 09/11/16 at 20:06 Famotidine (Pepcid) 20 mg BID NGT Last administered on 09/25/16 08:19; Admin Dose 20 MG; Start 09/11/16 at 20:06 Ferrous Sulfate (Feosol Liquid Cup) 300 mg DAILY NGT Last administered on 08:19; Admin Dose 300 MG; Start 09/12/16 at 09:00 Folic Acid (Folic Acid) 1 mg DAILY NGT Last administered on 09/25/16 08:19; Admin Dose 1 MG; Start 09/11/16 at 20:10 Losartan Potassium (Cozaar) 50 mg BID NGT ; Start 09/11/16 at 20:10; Status Future Hold Multivitamins Therapeutic (Theragran) 1 tab DAILY NGT Last administered on 08:25; Admin Dose 1 TAB; Start 09/11/16 at 20:11 Thiamine HCl (Vitamin B1) 100 mg DAILY NGT Last administered on 09/25/16 08:19 ; Admin Dose 100 MG; Start 09/11/16 at 20:11 Bisacodyl (Dulcolax Supp) 10 mg DAILY PRN [place] CONSTIPATION Last administered on 09/21/16 15:18; Admin Dose 10 MG; Start 09/14/16 at 09:00 Diltiazem HCl 60 mg 60 mg QID NGT Last administered on 09/25/16 08:19; Admin Dose 60 MG; Start 09/16/16 at 13:00 Phenylephrine HCl/ Dextrose (Jacinto-Syneph/D5W) 500 ml @ 75 mls/hr TITRATE IV ; Start 09/16/16 at 18:30 Apixaban (Eliquis) 2.5 mg BID PO Last administered on 09/24/16 08:25; Admin Dose 2.5 MG; Start 09/20/16 at 21:00; Status Future Hold Loperamide HCl (Imodium Cap) 2 mg QID PRN PO DIARRHEA Last administered on 16:00; Admin Dose 2 MG; Start 09/22/16 at 10:00 Lactulose (Enulose) 60 gm Q6 NGT Last administered on 09/25/16 05:14; Admin Dose 60 GM; Start 09/23/16 at 12:00 Acetaminophen (Tylenol Liquid) 650 mg Q4H PRN NGT PAIN AND OR ELEVATED TEMP Last administered on 09/25/16 00:01; Admin Dose 650 MG; Start 09/24/16 at 08:00 Furosemide 40 mg 40 mg DAILY IV Last administered on 09/25/16 08:19; Admin Dose 40 MG; Start 09/24/16 at 10:30 Magnesium Sulfate 50 ml @ 25 mls/hr ONCE ONCE IVPB Last administered on 06:58; Admin Dose 25 MLS/HR; Start 09/25/16 at 07:00; Stop 09/25/16 at 08:59 Potassium Chloride 250 ml @ 62.5 mls/hr ONCE ONCE IVPB ; Start 09/25/16 at 07: 00; Stop 09/25/16 at 10:59 Cefepime HCl 50 ml @ 100 mls/hr Q12 IVPB Last administered on 09/25/16 08:18; Admin Dose 100 MLS/HR; Start 09/25/16 at 08:30 Vancomycin HCl 2 gm/Sodium Chloride 500 ml @ 125 mls/hr ONCE IVPB ; Start at 09:30; Stop 09/25/16 at 15:00 Vancomycin HCl/ Sodium Chloride (Vancocin/NS) 250 ml @ 83.333 mls/ hr Q8H IVPB ; Start 09/25/16 at 17:30 SONI SUTTON Sep 25, 2016 08:42
[2016-09-25] MEDS: MULTIVITAMINS THERAPEUTIC TAB NGT SCH (08:55)
[2016-09-25] MEDS ORDERED: VANCOMYCIN 2 GM in SOD CHLORIDE 0.9% 500 ML IVPB SCH (09:30)
--- NOTE | 2016-09-25 10:10 | CONS ---
Date/Time of Note Date/Time of Note DATE: 09/25/16 TIME: 10:08 Consult Date/Type/Reason Admit Date/Time Aug 30, 2016 at 23:34 Type of Consultation: Pulmonary Ordering Provider: ERIK MORTON Subjective Patient tolerated treatment well as of CPAP yesterday before developing respiratory distress being placed back on AC mechanical ventilation. This morning he had Atrial fibrillation with rapid ventricular rate which is now improved with addition of additional digoxin. He has mild tachypnea but he is awake and alert this morning. Objective Vital Signs Date Time Temp Pulse Resp B/P Pulse Ox O2 Delivery O2 Flow Rate FiO2 09/25/16 08:00 131 09/25/16 06:30 24 122/88 91 Mechanical Ventilator 09/25/16 05:03 35 09/25/16 04:00 100.1 Intake and Output 09/24/16 09/24/16 09/25/16 15:00 23:00 07:00 Intake Total 1318.900 ml 762.035 ml 612.35 ml Output Total 1600 ml 710 ml 305 ml Balance -281.100 ml 52.035 ml 307.35 ml Exam PHYSICAL EXAMINATION GENERAL: Chronically ill-appearing gentleman intubated on mechanical ventilation opens eyes comfortable VITAL SIGNS: see below. HEENT: Pupils equal, round, and reactive to light. CARDIAC: S1, S2, 1/6 systolic ejection murmur CHEST: Diminished air entry bilaterally. ABDOMEN: Mildly distended. Bowel sounds present no guarding or rebound obese. EXTREMITIES: No cyanosis, clubbing edema +1 NEUROLOGIC: Generalized weakness Results/Medications Result Diagram: 09/25/16 0415 09/25/16 0415 Results 24 hrs Laboratory Tests Test 09/24/16 11:25 09/24/16 13:40 09/24/16 15:30 09/24/16 18:36 Urine Color ALLIE Urine Clarity CLOUDY A Urine pH 5.0 Urine Specific [place] 1.032 H Urine Ketones NEGATIVE Urine Nitrite NEGATIVE Urine Bilirubin NEGATIVE Urine Urobilinogen 2+ H Urine Leukocyte Esterase NEGATIVE Urine Microscopic RBC > 182 H Urine Microscopic WBC 98 H Urine Bacteria FEW A Urine Mucus FEW A Urine Hemoglobin 3+ H Urine Glucose NEGATIVE Urine Total Protein 2+ H Blood Gas Specimen Source Blood arterial Arterial Blood Date Drawn 09/24/2016 1:40:19 PM Arterial Blood pH (Temp corrected) 7.417 Arterial Blood pCO2 (Temp correct) 37.7 Arterial Blood pO2 (Temp corrected) 69.3 L Arterial Blood HCO3 23.7 Arterial Blood Base Excess -0.4 Arterial Blood Oxygen Saturation 93.4 L Dilshad Test ACCEPTAB Arterial Blood Gas Puncture Site Right Radial Arterial Blood Carboxyhemoglobin 0.7 Arterial Blood Methemoglobin 0.4 Blood Gas A-a O2 Differential 136.4 H Oxyhemoglobin Percent 92.4 L Total Hemoglobin 15.9 Blood Gas Temperature 37.0 Blood Gas Actual Respiration Rate 32 Blood Gas Modality VENT - CPAP FiO2 35.0 Blood Gas High PEEP Setting 5.0 Blood Gas Pressure Support 10 Blood Gas Notified Whom TM Blood Gas Notified Time 09/24/2016 1:48:58 PM Prothrombin Time 16.8 H Prothrombin Time Ratio 1.3 INR International Normalized Ratio 1.36 Activated Partial Thromboplast Time 32.7 White Blood Count 11.4 H Red Blood Count 4.65 L Hemoglobin 13.6 L Hematocrit 40.7 L Mean Corpuscular Volume 87.5 Mean Corpuscular Hemoglobin 29.2 Mean Corpuscular Hemoglobin Concent 33.4 Red Cell Distribution Width 15.0 H Platelet Count 180 Mean Platelet Volume 11.7 H Neutrophils % 78.2 H Lymphocytes % 10.7 L Monocytes % 9.0 Eosinophils % 1.3 Basophils % 0.4 Nucleated Red Blood Cells % 0.0 Neutrophils # 8.9 H Lymphocytes # 1.2 Monocytes # 1.0 H Eosinophils # 0.2 Basophils # 0.1 Nucleated Red Blood Cells # 0.0 Test 09/25/16 04:15 09/25/16 05:00 White Blood Count 10.8 Red Blood Count 4.58 L Hemoglobin 13.3 L Hematocrit 40.7 L Mean Corpuscular Volume 88.9 Mean Corpuscular Hemoglobin 29.0 Mean Corpuscular Hemoglobin Concent 32.7 Red Cell Distribution Width 15.2 H Platelet Count 171 Mean Platelet Volume 12.0 H Neutrophils % 78.2 H Lymphocytes % 10.9 L Monocytes % 8.4 Eosinophils % 1.6 Basophils % 0.6 Nucleated Red Blood Cells % 0.0 Neutrophils # 8.4 H Lymphocytes # 1.2 Monocytes # 0.9 Eosinophils # 0.2 Basophils # 0.1 Nucleated Red Blood Cells # 0.0 Sodium Level 150 H Potassium Level 3.1 L Chloride Level 111 H Carbon Dioxide Level 26 Anion Gap 16 Blood Urea Nitrogen 21 H Creatinine 0.82 Glucose Level 133 Calcium Level 9.3 Phosphorus Level 3.4 Magnesium Level 1.9 Total Bilirubin 0.7 Direct Bilirubin 0.00 Indirect Bilirubin 0.7 Aspartate Amino Transf (AST/SGOT) 43 Alanine Aminotransferase (ALT/SGPT) 45 Alkaline Phosphatase 126 H Total Protein 7.4 Albumin 3.6 Globulin 3.80 H Albumin/Globulin Ratio 0.94 Digoxin Level < 0.4 L Ammonia 48 H Medications Current Medications Morphine Sulfate (morphine) 3 mg Q4H PRN IV PAIN; Start 08/31/16 at 01:00 Ondansetron HCl (Zofran Inj) 4 mg Q6H PRN IV NAUSEA AND/OR VOMITING Last administered on 09/18/16 12:37; Admin Dose 4 MG; Start 08/31/16 at 02:00 Morphine Sulfate 2 mg 2 mg Q4H PRN IV PAIN LEVEL 7-10 Last administered on 09/14 09:45; Admin Dose 2 MG; Start 08/31/16 at 02:00 Propofol 100 ml @ 4.695 mls/ hr Q12H IV Last administered on 09/25/16 08:18; Admin Dose 14.085 MLS/HR; Start 09/07/16 at 13:30 Norepinephrine/ Dextrose (Levophed/D5W) 500 ml @ 1.87 mls/hr TITRATE IV Last administered on 09/15/16 06:19; Admin Dose 1.87 MLS/HR; Start 09/07/16 at 17:00 IV Flush (NS 10 ml) 10 ml PRN PRN IV IV PROTOCOL; Start 09/08/16 at 17:00 Potassium Chloride (Potassium Chloride Pwd/Soln) 20 meq BID NGT Last administered on 09/25/16 06:59; Admin Dose 20 MEQ; Start 09/11/16 at 21:00 Atorvastatin Calcium (Lipitor) 10 mg QHS NGT Last administered on 09/24/16 20: 52; Admin Dose 10 MG; Start 09/11/16 at 20:06 Digoxin (Digoxin) 0.125 mg DAILY@13 NGT Last administered on 09/24/16 13:03; Admin Dose 0.125 MG; Start 09/11/16 at 20:06 Famotidine (Pepcid) 20 mg BID NGT Last administered on 09/25/16 08:19; Admin Dose 20 MG; Start 09/11/16 at 20:06 Ferrous Sulfate (Feosol Liquid Cup) 300 mg DAILY NGT Last administered on 08:19; Admin Dose 300 MG; Start 09/12/16 at 09:00 Folic Acid (Folic Acid) 1 mg DAILY NGT Last administered on 09/25/16 08:19; Admin Dose 1 MG; Start 09/11/16 at 20:10 Losartan Potassium (Cozaar) 50 mg BID NGT ; Start 09/11/16 at 20:10; Status Future Hold Multivitamins Therapeutic (Theragran) 1 tab DAILY NGT Last administered on 08:55; Admin Dose 1 TAB; Start 09/11/16 at 20:11 Thiamine HCl (Vitamin B1) 100 mg DAILY NGT Last administered on 09/25/16 08:19 ; Admin Dose 100 MG; Start 09/11/16 at 20:11 Bisacodyl (Dulcolax Supp) 10 mg DAILY PRN [place] CONSTIPATION Last administered on 09/21/16 15:18; Admin Dose 10 MG; Start 09/14/16 at 09:00 Diltiazem HCl 60 mg 60 mg QID NGT Last administered on 09/25/16 08:19; Admin Dose 60 MG; Start 09/16/16 at 13:00 Phenylephrine HCl/ Dextrose (Jacinto-Syneph/D5W) 500 ml @ 75 mls/hr TITRATE IV ; Start 09/16/16 at 18:30 Apixaban (Eliquis) 2.5 mg BID PO Last administered on 09/24/16 08:25; Admin Dose 2.5 MG; Start 09/20/16 at 21:00; Status Future Hold Loperamide HCl (Imodium Cap) 2 mg QID PRN PO DIARRHEA Last administered on 16:00; Admin Dose 2 MG; Start 09/22/16 at 10:00 Lactulose (Enulose) 60 gm Q6 NGT Last administered on 09/25/16 05:14; Admin Dose 60 GM; Start 09/23/16 at 12:00 Acetaminophen (Tylenol Liquid) 650 mg Q4H PRN NGT PAIN AND OR ELEVATED TEMP Last administered on 09/25/16 09:57; Admin Dose 650 MG; Start 09/24/16 at 08:00 Furosemide 40 mg 40 mg DAILY IV Last administered on 09/25/16 08:19; Admin Dose 40 MG; Start 09/24/16 at 10:30 Potassium Chloride 250 ml @ 62.5 mls/hr ONCE ONCE IVPB Last administered on 08:55; Admin Dose 62.5 MLS/HR; Start 09/25/16 at 07:00; Stop 09/25/16 at 10:59 Cefepime HCl 50 ml @ 100 mls/hr Q12 IVPB Last administered on 09/25/16 08:18; Admin Dose 100 MLS/HR; Start 09/25/16 at 08:30 Vancomycin HCl 2 gm/Sodium Chloride 500 ml @ 125 mls/hr ONCE IVPB ; Start at 09:30; Stop 09/25/16 at 15:00 Vancomycin HCl/ Sodium Chloride (Vancocin/NS) 250 ml @ 83.333 mls/ hr Q8H IVPB ; Start 09/25/16 at 17:30 Assessment/Plan Chief Complaint/Hosp Course IMP: 1. Acute on Chronic Hypercapnic Respiratory Failure 2. Vent Dependence 3. Atrial Fibrillation, preserved ejection fraction with left atrial enlargement 4. OHS/LOTTIE 5. Encephalopathy, likely exacerbated by elevated ammonia, clinically improving 6. Chronic liver disease history of EtOH 6. Hypernatremia likely secondary to volume contraction, hypokalemia noted. RECS: 1. Repeat CPAP trial this morning 2. Daily sedation holiday 3. Continue diuretics, replace potassium, increase free water. DC Diamox 4. Continue nasogastric tube feeding 5. Continue lactulose for elevated ammonia 35 min CC time Discussed with staff and primary care team. Problems: YAENT BOO MD, [facility] Sep 25, 2016 10:10
[2016-09-25] MEDS: DIGOXIN 0.125 MG TAB NGT SCH (12:30)
[2016-09-25] MEDS ORDERED: VANCOMYCIN 1.5 GM in SOD CHLORIDE 0.9% 250 ML IVPB SCH (17:30)
[2016-09-25] MEDS: VANCOMYCIN 1.5 GM in SOD CHLORIDE 0.9% 250 ML IVPB SCH (20:18)
[2016-09-25 20:42] LABS: Allen Test ACCEPTAB; Arterial Base Excess -3.8 mmol/L (-3.0-3); Arterial COHb 0.4 % (0.0-3.0); Arterial Fraction of Oxyhgb 97.6 % (93.0-99.0); Arterial HCO3 19.9 mmol/L (22.0-26.0); Arterial MetHb 0.4 % (0.0-1.5); Arterial Total Hemglobin 16.6 g/dl (12.0-18.0); Blood Gas Mean Airway Pressure 21; MODE VENT - AC
--- NOTE | 2016-09-25 21:42 | RADRPT ---
PROCEDURE: XR Chest AP portable CLINICAL INDICATION: Respiratory distress, to kidney, tachycardia, sweating TECHNIQUE: An AP portable radiograph of the chest was submitted. COMPARISON: 08/31/2016 FINDINGS: Support Hardware: Since the previous study, the patient has been intubated with the tube tip at the level of T3 and an NG tube has been satisfactorily placed. A right upper extremity PICC catheter is now evident with the tip projecting through the atrial caval junction. Cardiovascular: The heart size is normal while the aorta appears atherosclerotic and the pulmonary v asculature is upper normal. Lung Vasquez: A poor inspiratory effort compresses lung parenchyma and subsegmental atelectatic nash es seen at the medial lung bases bilaterally. Pleural Spaces: A small right pleural fluid accumulation cannot be excluded as the costophrenic angl e now appears blunted. No pneumothorax is evident. Osseous Structures: Mild degenerative spine changes are noted. Soft Tissues: The soft tissues appear generous. IMPRESSION: 1. Interval satisfactory intubation and placement of an NG tube as well as a left upper extremity P ICC catheter. 2. Atherosclerotic aorta 3. Suboptimal inspiration with subsegmental atelectasis seen at the medial lung bases bilaterally. Physician Mayur Date Time Electronically viewed and signed by Physician Mayur on 09/25/2016 21:42 /
--- NOTE | 2016-09-25 21:46 | RADRPT ---
PROCEDURE: XR Abdomen CLINICAL INDICATION: Abdominal distension, possible aspiration TECHNIQUE: An AP supine radiograph of the abdomen was submitted. COMPARISON: None FINDINGS: An NG tube is seen to be in place with the tip within the antrum of the stomach. There is moderate gaseous distension of the stomach and there is moderate gaseous distension of larg e and small bowel most compatible with ileus. No organomegaly or discrete mass is identified. No pathological calcification is identified. Moderate degenerative spine changes are noted. Subsegmental atelectasis is seen at the lung bases and there is the suggestion of a small right pleu ral fluid accumulation. IMPRESSION: 1. An NG tube is in place with the tip in the antrum of the stomach. 2. The bowel gas pattern reflects an ileus in the stomach is moderately distended with gas. 3. Subsegmental atelectasis seen at the lung bases with suspicion of a small right pleural fluid ac cumulation. Physician Mayur Date Time Electronically viewed and signed by Physician Mayur on 09/25/2016 21:46 /
[2016-09-25] MEDS: ATORVASTATIN 10 MG TAB NGT SCH (22:06)
[2016-09-26] VITALS (101 sets, daily range): BP systolic 62–147; BP diastolic 25–112; PULSE 102–191; RESP 20–54
[2016-09-26 00:11] LABS: ADD SCAN DIFF NO
[2016-09-26 00:13] LABS: ABNORMAL IP MESSAGE 1; BASOPHIL # 0.1 10^3/ul (0.0-0.1); BASOPHILS % 0.6 % (0.0-2.0); HEMATOCRIT 49.5 % (42.0-52.0); HEMOGLOBIN 16.6 g/dl (14.0-18.0); MEAN CORPUSCULAR HEMOGLOBIN 29.9 pg (29.0-33.0); MEAN CORPUSCULAR HGB CONC 33.5 g/dl (32.0-37.0); MEAN PLATELET VOLUME 12.2 fl (7.4-10.4); MONOCYTE # 1.5 10^3/ul (0.3-0.9); MONOCYTES % 6.2 % (0.0-11.0); NEUTROPHIL # 20.8 10^3/ul (1.6-7.5); NEUTROPHILS % 88.5 % (39.0-77.0); PLATELET COUNT 263 10^3/UL (140-415); RED BLOOD COUNT 5.56 10^6/ul (4.70-6.10); RED CELL DISTRIBUTION WIDTH 15.2 % (11.5-14.5); WHITE BLOOD COUNT 23.5 10^3/ul (4.8-10.8)
[2016-09-26] MEDS: PANTOPRAZOLE IV 80 MG in SOD CHLORIDE 0.9% 100 ML IV SCH ×4 (00:31→22:55)
[2016-09-26] MEDS: CEFEPIME 1GM/50 ML (PMX) 50 ML IVPB SCH ×2 (00:32→10:31)
[2016-09-26 00:40] LABS: INR 1.3; PARTIAL THROMBOPLASTIN TIME 29.6 Sec (25.0-35.0); PROTIME 16.3 Sec (12.2-14.2); PT RATIO 1.3
[2016-09-26 00:42] LABS: ALBUMIN 4.3 g/dl (3.3-4.9); ALBUMIN/GLOBULIN RATIO 0.91; CALCIUM 10.5 mg/dl (8.4-10.2); CREATININE 2.23 mg/dl (0.61-1.24); POTASSIUM 4.5 mmol/L (3.5-5.1)
[2016-09-26] MEDS ORDERED: SODIUM CHLORIDE 0.45% 500 ML BAG IV* ONE (01:00)
[2016-09-26] MEDS: SOD CHLORIDE 0.45% 1,000 ML IV SCH ×3 (02:00→19:00)
[2016-09-26] MEDS: IPRATROPIUM (HFA) 12.9 GM INHALER INH SCH ×4 (02:13→19:41)
[2016-09-26] MEDS: ALBUTEROL 18 GM INHALER INH SCH ×4 (02:13→19:42)
[2016-09-26] MEDS ORDERED: ACETAMINOPHEN 1000MG/100ML IV 100 ML IVPB ONE (02:30)
[2016-09-26] MEDS ORDERED: PHENYLephrine 20MG IN 250 ML 0 ML ONE (03:19)
[2016-09-26] MEDS: PHENYLephrine 40 MG in DEXTROSE 5% 496 ML IV SCH ×10 (03:34→23:35)
[2016-09-26] MEDS: PROPOFOL 100 ML IV SCH (05:03)
[2016-09-26] MEDS: LACTULOSE 30ML CUP NGT SCH ×4 (05:44→17:30)
[2016-09-26 05:58] LABS: ADD SCAN DIFF NO
[2016-09-26 06:01] LABS: ABNORMAL IP MESSAGE 1; HEMOGLOBIN 17.1 g/dl (14.0-18.0); MEAN CORPUSCULAR HEMOGLOBIN 28.9 pg (29.0-33.0); MEAN CORPUSCULAR HGB CONC 31.7 g/dl (32.0-37.0); MEAN CORPUSCULAR VOLUME 91.4 fl (82.0-101.0); MEAN PLATELET VOLUME 12.9 fl (7.4-10.4); PLATELET COUNT 253 10^3/UL (140-415); RED BLOOD COUNT 5.91 10^6/ul (4.70-6.10); RED CELL DISTRIBUTION WIDTH 16.3 % (11.5-14.5)
[2016-09-26 06:29] LABS: CREATININE 3.18 mg/dl (0.61-1.24); POTASSIUM 4.7 mmol/L (3.5-5.1)
[2016-09-26 06:30] LABS: ALBUMIN 4.2 g/dl (3.3-4.9); ALBUMIN/GLOBULIN RATIO 0.95; CALCIUM 9.8 mg/dl (8.4-10.2); MAGNESIUM 2.5 mg/dl (1.7-2.5); TOTAL PROTEIN 8.6 g/dl (6.1-8.1)
--- NOTE | 2016-09-26 06:45 | RADRPT ---
PROCEDURE: XR Chest. CLINICAL INDICATION: Shortness of breath TECHNIQUE: A single AP view of the chest was obtained. COMPARISON: Chest x-ray dated 09/24/2016 and 09/25/2016 FINDINGS: The endotracheal tube tip is approximately 4.8 cm above the amber. The tip of the enteric tube exte nds below the left diaphragm. There is a right upper extremity PICC line with tip near the cavoatria l junction. Lung volumes are low with compressive changes, vascular crowding and basilar atelectasis. There is b lunting of the left costophrenic angle. No pneumothorax is seen. The cardiomediastinal silhouette is mildly enlarged. Calcifications are seen within the aortic arch. The osseous structures are unrema rkable. IMPRESSION: 1. Low lung volumes with compressive changes and basilar atelectasis. There is blunting of the left costophrenic angle which may reflect small left pleural effusion. Otherwise, no significant interva l change. 2. Mild cardiomegaly and aortic atherosclerosis. 3. Tubes and lines, as described above. RPTAT: HH .Geeta Escoto MD, MD Date Time Electronically viewed and signed by .Geeta Escoto MD, on 09/26/2016 06:44 .G/
[2016-09-26] MEDS: ALBUMIN HUMAN 25% 100 ML IV SCH ×3 (07:36→23:21)
[2016-09-26 07:52] LABS: AADO2 Arterial 539.4 mmHg (7.0-24.0); Allen Test ACCEPTAB; Arterial Base Excess -15.3 mmol/L (-3.0-3); Arterial COHb 0.2 % (0.0-3.0); Arterial Fraction of Oxyhgb 97.5 % (93.0-99.0); Arterial HCO3 12.6 mmol/L (22.0-26.0); Arterial MetHb 0.5 % (0.0-1.5); Arterial Total Hemglobin 17.4 g/dl (12.0-18.0); MODE VENT - AC
[2016-09-26] MEDS ORDERED: NA BICARBONATE 8.4% 50 ML SYG IV ONE ×2 (08:00→14:00)
[2016-09-26] MEDS ORDERED: DIGOXIN 500 MCG INJ IV ONE (08:00)
--- NOTE | 2016-09-26 08:07 | PN ---
Date/Time of Note Date/Time of Note DATE: 09/26/16 TIME: 08:02 Assessment/Plan VTE Prophylaxis VTE Prophylaxis Intervention: SCD's Lines/Catheters IV Catheter Type (from Nrs): PICC Line Central line still needed: Yes Urinary Cath still in place: Yes Reason Cath still needed: other (indicate) Assessment/Plan Chief Complaint/Hosp Course 1. Atrial fibrillation: now with RVR due to sepsis 2. septic shock: probably aspiration penumonia 3. Chronic obstructive pulmonary disease/ resp failure 4. Alcoholic liver disease. 5. Thrombocytopenia: 6. Morbid obesity. 7. Hyponatremia. 8. Hypomagnesemia, hypo K 9. Acute renal failure: probably ATN 10. hematuria: being evaluated by 11. anemia RECOMMENDATIONS: Correct electrolytes including magnesium, KCL prn respiratory care and vent support as per pulmonary. aggressive suctioning. off of amiodarone, due to the fact that the patient is in chronic atrial fibrillation and has severe pulmonary disease, is best to control heart rate with other medications. will give IV dig now and check level tomorrow. will stop daily po dig and adjust dig based on level given his ROSSANA. CONT Multiple pressors including neosynephrine and levophed as needed. more than 40 minutes of critical care time was spent in management and treatment of this critically ill patient, excluding any procedures. Problems: Subjective 24 Hr Interval Summary Free Text/Dictation CARDIOLOGY/ critical care FOLLOW UP NOTE; d/w staff and rhythm was reviewed. events noted. pt with aspiration according to staff. he has been hypotensive and in shock and is currently on multiple pressors and remains in Afib with RVR. PT also with RENAL FAILURE and poor urine output. pt remains nonverbal on vent. . OBJECTIVE: General: Patient is intubated on the vent in ICU. Obese. Respiratory:mild rhonchi heard anteriorly. Gastrointestinal: obese soft no rebound or guarding noted. Extremity + lower extremity edema , neuro : lethargic nonverbal. . pysch: Appear to be calm. Head: atraumatic, normocephalic Eyes: EOMI, nl conjunctiva Cardiovascular: irregular rhythm, systolic murmur : s/p parra in place. Exam/Review of Systems Vital Signs Vitals Vital Signs Date Time Temp Pulse Resp B/P Pulse Ox O2 Delivery O2 Flow Rate FiO2 09/26/16 06:45 136 34 82/68 95 09/26/16 06:00 104.5 Mechanical Ventilator 09/26/16 05:02 100 Intake and Output 09/25/16 09/25/16 09/26/16 15:00 23:00 07:00 Intake Total 1486.950 ml 563.170 ml 2039.325 ml Output Total 525 ml 2280 ml 1039 ml Balance 961.950 ml -1716.830 ml 1000.325 ml Results Result Diagram: 09/26/16 0430 09/26/16 0430 Results 24 hrs Laboratory Tests Test 09/25/16 20:14 09/26/16 00:05 09/26/16 04:30 09/26/16 07:00 Blood Gas Specimen Source Blood arterial Blood arterial Arterial Blood Date Drawn 09/25/2016 8:29:55 PM 09/26/2016 7:14:07 AM Arterial Blood pH (Temp corrected) 7.399 7.156 *L Arterial Blood pCO2 (Temp correct) 32.9 L 36.4 Arterial Blood pO2 (Temp corrected) 124.1 H 137.2 H Arterial Blood HCO3 19.9 L 12.6 L Arterial Blood Base Excess -3.8 L -15.3 L Arterial Blood Oxygen Saturation 98.4 H 98.2 H Dilshad Test ACCEPTAB ACCEPTAB Arterial Blood Gas Puncture Site Right Radial Right Radial Arterial Blood Carboxyhemoglobin 0.4 0.2 Arterial Blood Methemoglobin 0.4 0.5 Blood Gas A-a O2 Differential 556.0 H 539.4 H Oxyhemoglobin Percent 97.6 97.5 Total Hemoglobin 16.6 17.4 Blood Gas Temperature 37.0 37.0 Blood Gas Respiration Rate 20.0 20.0 Blood Gas Actual Respiration Rate 32 33 Blood Gas Modality VENT - AC VENT - AC FiO2 100.0 100.0 Blood Gas Tidal Volume 550.0 550.0 Blood Gas Mean Airway Pressure 21 Blood Gas Low PEEP Setting 5.0 Blood Gas Inspiratory Pressure 35.0 Blood Gas Notified Whom CASH DEAL Blood Gas Notified Time 09/25/2016 8:41:43 PM 09/26/2016 7:35:50 AM White Blood Count 23.5 #H 24.0 H Red Blood Count 5.56 # 5.91 Hemoglobin 16.6 # 17.1 Hematocrit 49.5 # 54.0 H Mean Corpuscular Volume 89.0 91.4 Mean Corpuscular Hemoglobin 29.9 28.9 L Mean Corpuscular Hemoglobin Concent 33.5 31.7 L Red Cell Distribution Width 15.2 H 16.3 H Platelet Count 263 # 253 Mean Platelet Volume 12.2 H 12.9 H Neutrophils % 88.5 H Lymphocytes % 4.0 L Monocytes % 6.2 Eosinophils % 0.0 Basophils % 0.6 Nucleated Red Blood Cells % 0.0 Neutrophils # 20.8 H Lymphocytes # 1.0 Monocytes # 1.5 H Eosinophils # 0.0 Basophils # 0.1 Nucleated Red Blood Cells # 0.0 Prothrombin Time 16.3 H Prothrombin Time Ratio 1.3 INR International Normalized Ratio 1.30 Activated Partial Thromboplast Time 29.6 Sodium Level 149 H 144 Potassium Level 4.5 4.7 Chloride Level 108 109 Carbon Dioxide Level 24 15 L Anion Gap 22 H 25 H Blood Urea Nitrogen 28 H 31 H Creatinine 2.23 #H 3.18 H Glucose Level 167 149 Calcium Level 10.5 H 9.8 Total Bilirubin 1.0 1.0 Direct Bilirubin 0.00 0.00 Indirect Bilirubin 1.0 1.0 Aspartate Amino Transf (AST/SGOT) 53 H 105 #H Alanine Aminotransferase (ALT/SGPT) 47 51 Alkaline Phosphatase 167 H 158 H Total Protein 9.0 H 8.6 H Albumin 4.3 4.2 Globulin 4.70 H 4.40 H Albumin/Globulin Ratio 0.91 0.95 Magnesium Level 2.5 B-Type Natriuretic Peptide 428 H Digoxin Level 0.7 #L Blood Gas High PEEP Setting 8.0 Blood Gas Critical Value Read Back Erin VALDEZ RN Medications Medications Current Medications Morphine Sulfate (morphine) 3 mg Q4H PRN IV PAIN; Start 08/31/16 at 01:00 Ondansetron HCl (Zofran Inj) 4 mg Q6H PRN IV NAUSEA AND/OR VOMITING Last administered on 09/18/16 12:37; Admin Dose 4 MG; Start 08/31/16 at 02:00 Morphine Sulfate 2 mg 2 mg Q4H PRN IV PAIN LEVEL 7-10 Last administered on 09/14 09:45; Admin Dose 2 MG; Start 08/31/16 at 02:00 Propofol 100 ml @ 4.695 mls/ hr Q12H IV Last administered on 09/26/16 05:03; Admin Dose 23.475 MLS/HR; Start 09/07/16 at 13:30 Norepinephrine/ Dextrose (Levophed/D5W) 500 ml @ 1.87 mls/hr TITRATE IV Last administered on 09/26/16 04:29; Admin Dose 1.87 MLS/HR; Start 09/07/16 at 17:00 IV Flush (NS 10 ml) 10 ml PRN PRN IV IV PROTOCOL; Start 09/08/16 at 17:00 Potassium Chloride (Potassium Chloride Pwd/Soln) 20 meq BID NGT Last administered on 09/25/16 22:06; Admin Dose 20 MEQ; Start 09/11/16 at 21:00 Atorvastatin Calcium (Lipitor) 10 mg QHS NGT Last administered on 09/25/16 22: 06; Admin Dose 10 MG; Start 09/11/16 at 20:06 Digoxin (Digoxin) 0.125 mg DAILY@13 NGT Last administered on 09/25/16 12:30; Admin Dose 0.125 MG; Start 09/11/16 at 20:06 Famotidine (Pepcid) 20 mg BID NGT Last administered on 09/25/16 22:06; Admin Dose 20 MG; Start 09/11/16 at 20:06 Ferrous Sulfate (Feosol Liquid Cup) 300 mg DAILY NGT Last administered on 08:19; Admin Dose 300 MG; Start 09/12/16 at 09:00 Folic Acid (Folic Acid) 1 mg DAILY NGT Last administered on 09/25/16 08:19; Admin Dose 1 MG; Start 09/11/16 at 20:10 Losartan Potassium (Cozaar) 50 mg BID NGT ; Start 09/11/16 at 20:10; Status Future Hold Multivitamins Therapeutic (Theragran) 1 tab DAILY NGT Last administered on 08:55; Admin Dose 1 TAB; Start 09/11/16 at 20:11 Thiamine HCl (Vitamin B1) 100 mg DAILY NGT Last administered on 09/25/16 08:19 ; Admin Dose 100 MG; Start 09/11/16 at 20:11 Bisacodyl (Dulcolax Supp) 10 mg DAILY PRN [place] CONSTIPATION Last administered on 09/21/16 15:18; Admin Dose 10 MG; Start 09/14/16 at 09:00 Diltiazem HCl 60 mg 60 mg QID NGT Last administered on 09/25/16 22:06; Admin Dose 60 MG; Start 09/16/16 at 13:00 Phenylephrine HCl/ Dextrose (Jacinto-Syneph/D5W) 500 ml @ 75 mls/hr TITRATE IV Last administered on 09/26/16 06:03; Admin Dose 225 MLS/HR; Start 09/16/16 at 18 :30 Apixaban (Eliquis) 2.5 mg BID PO Last administered on 09/24/16 08:25; Admin Dose 2.5 MG; Start 09/20/16 at 21:00; Status Future Hold Loperamide HCl (Imodium Cap) 2 mg QID PRN PO DIARRHEA Last administered on 16:00; Admin Dose 2 MG; Start 09/22/16 at 10:00 Lactulose (Enulose) 60 gm Q6 NGT Last administered on 09/25/16 17:01; Admin Dose 60 GM; Start 09/23/16 at 12:00 Acetaminophen (Tylenol Liquid) 650 mg Q4H PRN NGT PAIN AND OR ELEVATED TEMP Last administered on 09/25/16 09:57; Admin Dose 650 MG; Start 09/24/16 at 08:00 Furosemide 40 mg 40 mg DAILY IV Last administered on 09/25/16 08:19; Admin Dose 40 MG; Start 09/24/16 at 10:30 Cefepime HCl 50 ml @ 100 mls/hr Q12 IVPB Last administered on 09/26/16 00:32; Admin Dose 100 MLS/HR; Start 09/25/16 at 08:30 Vancomycin HCl 1.5 gm/Sodium Chloride 250 ml @ 83.333 mls/ hr Q12H IVPB Last administered on 09/25/16 20:18; Admin Dose 83.333 MLS/HR; Start 09/25/16 at 20:00 Pantoprazole 80 mg/Sodium Chloride 100 ml @ 10 mls/hr Q10H IV Last administered on 09/26/16 00:31; Admin Dose 10 MLS/HR; Start 09/26/16 at 00:00 Sodium Chloride 1,000 ml @ 75 mls/hr [id number] IV Last administered on 09/26/16 02:00; Admin Dose 75 MLS/HR; Start 09/26/16 at 01:30 Albumin Human 100 ml @ 100 mls/hr Q8H IV Last administered on 09/26/16 07:36; Admin Dose 100 MLS/HR; Start 09/26/16 at 07:30; Stop 09/27/16 at 00:29 Vasopressin 60 unit/Dextrose 60 ml @ 0 mls/hr TITRATE IV ; Start 09/26/16 at 09: 00 Sodium Bicarbonate/ Dextrose/Sodium Chloride (Na Bicarb/D5-1/ 2ns) 1,100 ml @ 100 mls/hr Q11H IV ; Start 09/26/16 at 08:00; Status UNV Sodium Bicarbonate (Na Bicarb 8.4% Syg) 50 ml ONCE ONCE IV ; Start 09/26/16 at 08:00; Stop 09/26/16 at 08:01; Status UNV TAL ABREU MD Sep 26, 2016 08:07
[2016-09-26] MEDS: VANCOMYCIN 1.5 GM in SOD CHLORIDE 0.9% 250 ML IVPB SCH (08:39)
[2016-09-26] MEDS: DILTIAZEM 60 MG TAB NGT SCH ×4 (09:00→21:00)
[2016-09-26] MEDS: FOLIC ACID 1 MG TAB NGT SCH (09:00)
[2016-09-26] MEDS: POTASSIUM CHLORIDE 20 MEQ POWDER FOR ORAL SOLN NGT SCH ×2 (09:00→21:00)
[2016-09-26] MEDS ORDERED: SODIUM BICARBONATE (IV ADD) 100 MEQ in DEXTROSE 5%-0.45% NACL 900 ML IV SCH (09:00)
[2016-09-26] MEDS: FUROSEMIDE 40 MG INJ IV SCH (09:00)
[2016-09-26] MEDS: MULTIVITAMINS THERAPEUTIC TAB NGT SCH (09:00)
[2016-09-26] MEDS: FAMOTIDINE 20 MG TAB NGT SCH ×2 (09:00→21:00)
[2016-09-26] MEDS: THIAMINE 100 MG TAB NGT SCH (09:00)
[2016-09-26] MEDS: FERROUS SULFATE 60 MG/ML 5ML CUP NGT SCH (09:00)
--- NOTE | 2016-09-26 09:25 | PN ---
Date/Time of Note Date/Time of Note DATE: 09/26/16 TIME: 09:14 Assessment/Plan VTE Prophylaxis VTE Prophylaxis Intervention: contraindicated VTE Contraindication Reason: bleeding Lines/Catheters IV Catheter Type (from Nrsg): PICC Line Central line still needed: Yes Urinary Cath still in place: Yes Reason Cath still needed: urinary retention Assessment/Plan Chief Complaint/Hosp Course A/P: 56-year-old morbidly obese male with BMI of 54, with history of hypertension, decompensated alcoholic cirrhosis, anemia who was transferred from [facility] after he presented there with chest pain, now res failure, intubated, now septic shock. 1. Acute respiratory failure - now in septic shock, sec to possible res source. Acute on chronic. Hypoxic and hypercapnic. Pt intubated on 09/07/2016 because of worsening respiratory distress. Failed CPAP trial last few days. - Ventilator management as per Pulmonary. - ID consult, pressors, IVF's with bicarb, trend LA (elevated), abx 2. Essential hypertension. Status post pressors for episode of hypotension. Back on pressors. - monitor 3. Chronic obstructive pulmonary disease. The patient on inhaled bronchodilators. - f/u Pulmonology rec's, Duoneb's 4. Chest pain. Acute coronary syndrome ruled out. Troponins negative. - holding CV meds for now given sepsis 5. Atrial fibrillation - back in this with RVR (sec to sepsis) - agai, holding Dilt and Dig, f/u CV rec's - also holding Eliquis for stroke prophylaxis given hematuria 6. Alcoholic liver disease. LFT's nL, but ammonia still elevated but trending down slightly (94 -> 88 -> 68 ->48) - monitor - continue lactulose, trend NH4 7. Thrombocytopenia. Most probably from acute alcoholic liver disease. Plt now stable - monitor for any bleeding. 8. Alcohol abuse. The patient's last drink was on the day prior to hospitalization. The patient will be maintained on daily thiamine. Status post Librium taper. 10. Possible aspiration with aspiration pneumonia - nL WBC but + fever in last 72 hrs, s/p Abx, but now septic shock (see # 1) -f/u UA, culture, blood cx's. - Cefepime and Vanco, add Meropenem, get ID consult 11. Acute on chronic CHF exacerbation. The patient's 2D echocardiogram showing ejection fraction of 55%. Diastolic dysfunction. - monitor, lasix on temp hold (see # 6) 12. Fluid, electrolytes and nutrition. NG tube feedings - but on hold sec to loose stools - cdiff = neg 13. Deep venous thrombosis prophylaxis - CI (hematuria) 14. Gastrointestinal prophylaxis. H2 receptor blockers. 15. hematuria - appreciate rec's, monitor, if worsens - consider CT A/P to further evaluate. 16. ARF - worsening Cr levels (more elevated), low UO - f/u renal rec's Plan. Continue ICU monitoring. Ventilator weaning as per Pulmonary. Critical care time: 45 minutes. On 09/18/2016, doctor had a long conversation with the patient's mother with the help of a enterprise data architect regarding the patient's prognosis. The patient's mother was explained about the need for a tracheostomy if unable to wean the patient off the ventilator. Later, the patient's ex- was present in the patient's room. Talked to the patient's ex- in the presence of the patient' s mother after getting consent to talk to the patient's ex- from the mother. Patient's ex- was informed about the necessity for a tracheostomy and PEG tube placement if unable to wean the patient off the ventilator. The patient's mom and ex- verbalized understanding, and they agreed for proceeding with a tracheostomy and PEG tube placement if necessary. Will follow up with product marketing consultant teams on this. However, given worsening septic shock, fevers , lactic acidosis, poor prognosis. Problems: Subjective 24 Hr Interval Summary Free Text/Dictation Pt with fevers, now septic shock, on pressors now. Very minimal UO now. Exam/Review of Systems Vital Signs Vitals Vital Signs Date Time Temp Pulse Resp B/P Pulse Ox O2 Delivery O2 Flow Rate FiO2 09/26/16 08:15 133 22 83/68 95 09/26/16 08:00 104.1 Mechanical Ventilator 09/26/16 05:02 100 Intake and Output 09/25/16 09/25/16 09/26/16 15:00 23:00 07:00 Intake Total 1486.950 ml 563.170 ml 2039.325 ml Output Total 525 ml 2280 ml 1039 ml Balance 961.950 ml -1716.830 ml 1000.325 ml Exam GENERAL:obese male patient lying in orally intubated. HEENT: Head normocephalic and atraumatic. Eyes: Anicteric sclerae. Conjunctivae clear. ENT: Nasal septum is midline. NGT in place. Orally intubated. NECK: Short with increased neck circumference. RESPIRATORY: some bilaterally diminished breath sounds. CARDIAC: Irregularly irregular rhythm. S1 and S2 heard. ABDOMEN: Obese. Bowel sounds hypoactive. EXTREMITIES: No cyanosis, no clubbing. Bilateral lower extremity 1+ pitting edema. Peripheral pulses are palpable. NEUROLOGIC: The patient is sedated. Results Result Diagram: 09/26/16 0430 09/26/16 0430 Results 24 hrs Laboratory Tests Test 09/25/16 20:14 09/26/16 00:05 09/26/16 04:30 09/26/16 07:00 Blood Gas Specimen Source Blood arterial Blood arterial Arterial Blood Date Drawn 09/25/2016 8:29:55 PM 09/26/2016 7:14:07 AM Arterial Blood pH (Temp corrected) 7.399 7.156 *L Arterial Blood pCO2 (Temp correct) 32.9 L 36.4 Arterial Blood pO2 (Temp corrected) 124.1 H 137.2 H Arterial Blood HCO3 19.9 L 12.6 L Arterial Blood Base Excess -3.8 L -15.3 L Arterial Blood Oxygen Saturation 98.4 H 98.2 H Dilshad Test ACCEPTAB ACCEPTAB Arterial Blood Gas Puncture Site Right Radial Right Radial Arterial Blood Carboxyhemoglobin 0.4 0.2 Arterial Blood Methemoglobin 0.4 0.5 Blood Gas A-a O2 Differential 556.0 H 539.4 H Oxyhemoglobin Percent 97.6 97.5 Total Hemoglobin 16.6 17.4 Blood Gas Temperature 37.0 37.0 Blood Gas Respiration Rate 20.0 20.0 Blood Gas Actual Respiration Rate 32 33 Blood Gas Modality VENT - AC VENT - AC FiO2 100.0 100.0 Blood Gas Tidal Volume 550.0 550.0 Blood Gas Mean Airway Pressure 21 Blood Gas Low PEEP Setting 5.0 Blood Gas Inspiratory Pressure 35.0 Blood Gas Notified Whom CASH DEAL Blood Gas Notified Time 09/25/2016 8:41:43 PM 09/26/2016 7:35:50 AM White Blood Count 23.5 #H 24.0 H Red Blood Count 5.56 # 5.91 Hemoglobin 16.6 # 17.1 Hematocrit 49.5 # 54.0 H Mean Corpuscular Volume 89.0 91.4 Mean Corpuscular Hemoglobin 29.9 28.9 L Mean Corpuscular Hemoglobin Concent 33.5 31.7 L Red Cell Distribution Width 15.2 H 16.3 H Platelet Count 263 # 253 Mean Platelet Volume 12.2 H 12.9 H Neutrophils % 88.5 H Lymphocytes % 4.0 L Monocytes % 6.2 Eosinophils % 0.0 Basophils % 0.6 Nucleated Red Blood Cells % 0.0 Neutrophils # 20.8 H Lymphocytes # 1.0 Monocytes # 1.5 H Eosinophils # 0.0 Basophils # 0.1 Nucleated Red Blood Cells # 0.0 Prothrombin Time 16.3 H Prothrombin Time Ratio 1.3 INR International Normalized Ratio 1.30 Activated Partial Thromboplast Time 29.6 Sodium Level 149 H 144 Potassium Level 4.5 4.7 Chloride Level 108 109 Carbon Dioxide Level 24 15 L Anion Gap 22 H 25 H Blood Urea Nitrogen 28 H 31 H Creatinine 2.23 #H 3.18 H Glucose Level 167 149 Calcium Level 10.5 H 9.8 Total Bilirubin 1.0 1.0 Direct Bilirubin 0.00 0.00 Indirect Bilirubin 1.0 1.0 Aspartate Amino Transf (AST/SGOT) 53 H 105 #H Alanine Aminotransferase (ALT/SGPT) 47 51 Alkaline Phosphatase 167 H 158 H Total Protein 9.0 H 8.6 H Albumin 4.3 4.2 Globulin 4.70 H 4.40 H Albumin/Globulin Ratio 0.91 0.95 Magnesium Level 2.5 B-Type Natriuretic Peptide 428 H Digoxin Level 0.7 #L Blood Gas High PEEP Setting 8.0 Blood Gas Critical Value Read Back G COURTNEY RN Test 09/26/16 08:15 Lactic Acid Level 7.7 *H Medications Medications Current Medications Morphine Sulfate (morphine) 3 mg Q4H PRN IV PAIN; Start 08/31/16 at 01:00 Ondansetron HCl (Zofran Inj) 4 mg Q6H PRN IV NAUSEA AND/OR VOMITING Last administered on 09/18/16 12:37; Admin Dose 4 MG; Start 08/31/16 at 02:00 Morphine Sulfate 2 mg 2 mg Q4H PRN IV PAIN LEVEL 7-10 Last administered on 09/14 09:45; Admin Dose 2 MG; Start 08/31/16 at 02:00 Propofol 100 ml @ 4.695 mls/ hr Q12H IV Last administered on 09/26/16 05:03; Admin Dose 23.475 MLS/HR; Start 09/07/16 at 13:30 Norepinephrine/ Dextrose (Levophed/D5W) 500 ml @ 1.87 mls/hr TITRATE IV Last administered on 09/26/16 04:29; Admin Dose 1.87 MLS/HR; Start 09/07/16 at 17:00 IV Flush (NS 10 ml) 10 ml PRN PRN IV IV PROTOCOL; Start 09/08/16 at 17:00 Potassium Chloride (Potassium Chloride Pwd/Soln) 20 meq BID NGT Last administered on 09/25/16 22:06; Admin Dose 20 MEQ; Start 09/11/16 at 21:00 Atorvastatin Calcium (Lipitor) 10 mg QHS NGT Last administered on 09/25/16 22: 06; Admin Dose 10 MG; Start 09/11/16 at 20:06 Famotidine (Pepcid) 20 mg BID NGT Last administered on 09/25/16 22:06; Admin Dose 20 MG; Start 09/11/16 at 20:06 Ferrous Sulfate (Feosol Liquid Cup) 300 mg DAILY NGT Last administered on 08:19; Admin Dose 300 MG; Start 09/12/16 at 09:00 Folic Acid (Folic Acid) 1 mg DAILY NGT Last administered on 09/25/16 08:19; Admin Dose 1 MG; Start 09/11/16 at 20:10 Losartan Potassium (Cozaar) 50 mg BID NGT ; Start 09/11/16 at 20:10; Status Future Hold Multivitamins Therapeutic (Theragran) 1 tab DAILY NGT Last administered on 08:55; Admin Dose 1 TAB; Start 09/11/16 at 20:11 Thiamine HCl (Vitamin B1) 100 mg DAILY NGT Last administered on 09/25/16 08:19 ; Admin Dose 100 MG; Start 09/11/16 at 20:11 Bisacodyl (Dulcolax Supp) 10 mg DAILY PRN [place] CONSTIPATION Last administered on 09/21/16 15:18; Admin Dose 10 MG; Start 09/14/16 at 09:00 Diltiazem HCl 60 mg 60 mg QID NGT Last administered on 09/25/16 22:06; Admin Dose 60 MG; Start 09/16/16 at 13:00 Phenylephrine HCl/ Dextrose (Jacinto-Syneph/D5W) 500 ml @ 75 mls/hr TITRATE IV Last administered on 09/26/16 08:18; Admin Dose 225 MLS/HR; Start 09/16/16 at 18 :30 Apixaban (Eliquis) 2.5 mg BID PO Last administered on 09/24/16 08:25; Admin Dose 2.5 MG; Start 09/20/16 at 21:00; Status Future Hold Loperamide HCl (Imodium Cap) 2 mg QID PRN PO DIARRHEA Last administered on 16:00; Admin Dose 2 MG; Start 09/22/16 at 10:00 Lactulose (Enulose) 60 gm Q6 NGT Last administered on 09/25/16 17:01; Admin Dose 60 GM; Start 09/23/16 at 12:00 Acetaminophen (Tylenol Liquid) 650 mg Q4H PRN NGT PAIN AND OR ELEVATED TEMP Last administered on 09/25/16 09:57; Admin Dose 650 MG; Start 09/24/16 at 08:00 Furosemide 40 mg 40 mg DAILY IV Last administered on 09/25/16 08:19; Admin Dose 40 MG; Start 09/24/16 at 10:30 Cefepime HCl 50 ml @ 100 mls/hr Q12 IVPB Last administered on 09/26/16 00:32; Admin Dose 100 MLS/HR; Start 09/25/16 at 08:30 Pantoprazole 80 mg/Sodium Chloride 100 ml @ 10 mls/hr Q10H IV Last administered on 09/26/16 08:18; Admin Dose 10 MLS/HR; Start 09/26/16 at 00:00 Sodium Chloride 1,000 ml @ 75 mls/hr [id number] IV Last administered on 09/26/16 02:00; Admin Dose 75 MLS/HR; Start 09/26/16 at 01:30 Albumin Human 100 ml @ 100 mls/hr Q8H IV Last administered on 7/7/17at 07:36; Admin Dose 100 MLS/HR; Start 09/26/16 at 07:30; Stop 09/27/16 at 00:29 Vasopressin 60 unit/Dextrose 60 ml @ 0 mls/hr TITRATE IV ; Start 09/26/16 at 09: 00 Sodium Bicarbonate/ Dextrose/Sodium Chloride (Na Bicarb/D5-1/ 2ns) 1,000 ml @ 100 mls/hr Q10H IV ; Start 09/26/16 at 09:00 SONI SUTTON Sep 26, 2016 09:25
[2016-09-26] MEDS: VASOPRESSIN 60 UNIT in DEXTROSE 5% 57 ML IV SCH ×2 (10:00→23:35)
[2016-09-26] MEDS ORDERED: MEROPENEM 500 MG/100 ML (PMX) 100 ML IVPB SCH (10:30)
[2016-09-26 10:43] LABS: LYMPHOCYTES # 3.4 10^3/ul (0.8-2.9); NEUTROPHIL # 18.5 10^3/ul (1.6-7.5)
--- NOTE | 2016-09-26 11:51 | CONS ---
Date/Time of Note Date/Time of Note DATE: 09/26/16 TIME: 11:24 Consult Date/Type/Reason Admit Date/Time Aug 30, 2016 at 23:34 Type of Consultation: Pulmonary Ordering Provider: ERIK MORTON Subjective Patient as vomited yesterday with significant bilious output. Following which he decompensated with now septic shock and acute renal failure. In addition he now has significant bloody output from nasogastric tube suggestive of active GI bleeding. Currently he is on multiple vasopressors with agonal respiration, severe metabolic acidosis and multiorgan failure. Objective Vital Signs Date Time Temp Pulse Resp B/P Pulse Ox O2 Delivery O2 Flow Rate FiO2 09/26/16 10:00 118 29 93/49 95 Mechanical Ventilator 09/26/16 08:00 104.1 09/26/16 05:02 100 Intake and Output 09/25/16 09/25/16 09/26/16 15:00 23:00 07:00 Intake Total 1486.950 ml 563.170 ml 2039.325 ml Output Total 525 ml 2280 ml 1039 ml Balance 961.950 ml -1716.830 ml 1000.325 ml Results/Medications Result Diagram: 09/26/16 0430 09/26/16 0430 Results 24 hrs Laboratory Tests Test 09/25/16 20:14 09/26/16 00:05 09/26/16 04:30 09/26/16 07:00 Blood Gas Specimen Source Blood arterial Blood arterial Arterial Blood Date Drawn 09/25/2016 8:29:55 PM 09/26/2016 7:14:07 AM Arterial Blood pH (Temp corrected) 7.399 7.156 *L Arterial Blood pCO2 (Temp correct) 32.9 L 36.4 Arterial Blood pO2 (Temp corrected) 124.1 H 137.2 H Arterial Blood HCO3 19.9 L 12.6 L Arterial Blood Base Excess -3.8 L -15.3 L Arterial Blood Oxygen Saturation 98.4 H 98.2 H Dilshad Test ACCEPTAB ACCEPTAB Arterial Blood Gas Puncture Site Right Radial Right Radial Arterial Blood Carboxyhemoglobin 0.4 0.2 Arterial Blood Methemoglobin 0.4 0.5 Blood Gas A-a O2 Differential 556.0 H 539.4 H Oxyhemoglobin Percent 97.6 97.5 Total Hemoglobin 16.6 17.4 Blood Gas Temperature 37.0 37.0 Blood Gas Respiration Rate 20.0 20.0 Blood Gas Actual Respiration Rate 32 33 Blood Gas Modality VENT - AC VENT - AC FiO2 100.0 100.0 Blood Gas Tidal Volume 550.0 550.0 Blood Gas Mean Airway Pressure 21 Blood Gas Low PEEP Setting 5.0 Blood Gas Inspiratory Pressure 35.0 Blood Gas Notified Whom CASH DEAL Blood Gas Notified Time 09/25/2016 8:41:43 PM 09/26/2016 7:35:50 AM White Blood Count 23.5 #H 24.0 H Red Blood Count 5.56 # 5.91 Hemoglobin 16.6 # 17.1 Hematocrit 49.5 # 54.0 H Mean Corpuscular Volume 89.0 91.4 Mean Corpuscular Hemoglobin 29.9 28.9 L Mean Corpuscular Hemoglobin Concent 33.5 31.7 L Red Cell Distribution Width 15.2 H 16.3 H Platelet Count 263 # 253 Mean Platelet Volume 12.2 H 12.9 H Neutrophils % 88.5 H 77.0 Lymphocytes % 4.0 L 14.0 L Monocytes % 6.2 Eosinophils % 0.0 Basophils % 0.6 Nucleated Red Blood Cells % 0.0 Neutrophils # 20.8 H 18.5 H Lymphocytes # 1.0 3.4 H Monocytes # 1.5 H Eosinophils # 0.0 Basophils # 0.1 Nucleated Red Blood Cells # 0.0 Prothrombin Time 16.3 H Prothrombin Time Ratio 1.3 INR International Normalized Ratio 1.30 Activated Partial Thromboplast Time 29.6 Sodium Level 149 H 144 Potassium Level 4.5 4.7 Chloride Level 108 109 Carbon Dioxide Level 24 15 L Anion Gap 22 H 25 H Blood Urea Nitrogen 28 H 31 H Creatinine 2.23 #H 3.18 H Glucose Level 167 149 Calcium Level 10.5 H 9.8 Total Bilirubin 1.0 1.0 Direct Bilirubin 0.00 0.00 Indirect Bilirubin 1.0 1.0 Aspartate Amino Transf (AST/SGOT) 53 H 105 #H Alanine Aminotransferase (ALT/SGPT) 47 51 Alkaline Phosphatase 167 H 158 H Total Protein 9.0 H 8.6 H Albumin 4.3 4.2 Globulin 4.70 H 4.40 H Albumin/Globulin Ratio 0.91 0.95 Band Neutrophils % 9.0 H Magnesium Level 2.5 B-Type Natriuretic Peptide 428 H Digoxin Level 0.7 #L Blood Gas High PEEP Setting 8.0 Blood Gas Critical Value Read Back G COURTNEY RN Test 09/26/16 08:15 Lactic Acid Level 7.7 *H Medications Current Medications Morphine Sulfate (morphine) 3 mg Q4H PRN IV PAIN; Start 08/31/16 at 01:00 Ondansetron HCl (Zofran Inj) 4 mg Q6H PRN IV NAUSEA AND/OR VOMITING Last administered on 09/18/16 12:37; Admin Dose 4 MG; Start 08/31/16 at 02:00 Morphine Sulfate 2 mg 2 mg Q4H PRN IV PAIN LEVEL 7-10 Last administered on 09/14 09:45; Admin Dose 2 MG; Start 08/31/16 at 02:00 Propofol 100 ml @ 4.695 mls/ hr Q12H IV Last administered on 09/26/16 05:03; Admin Dose 23.475 MLS/HR; Start 09/07/16 at 13:30 Norepinephrine/ Dextrose (Levophed/D5W) 500 ml @ 1.87 mls/hr TITRATE IV Last administered on 09/26/16 04:29; Admin Dose 1.87 MLS/HR; Start 09/07/16 at 17:00 IV Flush (NS 10 ml) 10 ml PRN PRN IV IV PROTOCOL; Start 09/08/16 at 17:00 Potassium Chloride (Potassium Chloride Pwd/Soln) 20 meq BID NGT Last administered on 09/25/16 22:06; Admin Dose 20 MEQ; Start 09/11/16 at 21:00 Atorvastatin Calcium (Lipitor) 10 mg QHS NGT Last administered on 09/25/16 22: 06; Admin Dose 10 MG; Start 09/11/16 at 20:06 Famotidine (Pepcid) 20 mg BID NGT Last administered on 09/25/16 22:06; Admin Dose 20 MG; Start 09/11/16 at 20:06 Ferrous Sulfate (Feosol Liquid Cup) 300 mg DAILY NGT Last administered on 08:19; Admin Dose 300 MG; Start 09/12/16 at 09:00 Folic Acid (Folic Acid) 1 mg DAILY NGT Last administered on 09/25/16 08:19; Admin Dose 1 MG; Start 09/11/16 at 20:10 Losartan Potassium (Cozaar) 50 mg BID NGT ; Start 09/11/16 at 20:10; Status Future Hold Multivitamins Therapeutic (Theragran) 1 tab DAILY NGT Last administered on 08:55; Admin Dose 1 TAB; Start 09/11/16 at 20:11 Thiamine HCl (Vitamin B1) 100 mg DAILY NGT Last administered on 09/25/16 08:19 ; Admin Dose 100 MG; Start 09/11/16 at 20:11 Bisacodyl (Dulcolax Supp) 10 mg DAILY PRN [place] CONSTIPATION Last administered on 09/21/16 15:18; Admin Dose 10 MG; Start 09/14/16 at 09:00 Diltiazem HCl 60 mg 60 mg QID NGT Last administered on 09/25/16 22:06; Admin Dose 60 MG; Start 09/16/16 at 13:00 Phenylephrine HCl/ Dextrose (Jacinto-Syneph/D5W) 500 ml @ 75 mls/hr TITRATE IV Last administered on 09/26/16 10:48; Admin Dose 225 MLS/HR; Start 09/16/16 at 18 :30 Apixaban (Eliquis) 2.5 mg BID PO Last administered on 09/24/16 08:25; Admin Dose 2.5 MG; Start 09/20/16 at 21:00; Status Future Hold Loperamide HCl (Imodium Cap) 2 mg QID PRN PO DIARRHEA Last administered on 16:00; Admin Dose 2 MG; Start 09/22/16 at 10:00 Lactulose (Enulose) 60 gm Q6 NGT Last administered on 09/25/16 17:01; Admin Dose 60 GM; Start 09/23/16 at 12:00 Acetaminophen (Tylenol Liquid) 650 mg Q4H PRN NGT PAIN AND OR ELEVATED TEMP Last administered on 09/25/16 09:57; Admin Dose 650 MG; Start 09/24/16 at 08:00 Furosemide 40 mg 40 mg DAILY IV Last administered on 09/25/16 08:19; Admin Dose 40 MG; Start 09/24/16 at 10:30 Pantoprazole 80 mg/Sodium Chloride 100 ml @ 10 mls/hr Q10H IV Last administered on 09/26/16 08:18; Admin Dose 10 MLS/HR; Start 09/26/16 at 00:00 Sodium Chloride 1,000 ml @ 75 mls/hr [id number] IV Last administered on 09/26/16 02:00; Admin Dose 75 MLS/HR; Start 09/26/16 at 01:30 Albumin Human 100 ml @ 100 mls/hr Q8H IV Last administered on 09/26/16 07:36; Admin Dose 100 MLS/HR; Start 09/26/16 at 07:30; Stop 09/27/16 at 00:29 Vasopressin 60 unit/Dextrose 60 ml @ 0 mls/hr TITRATE IV ; Start 09/26/16 at 09: 00 Sodium Bicarbonate 100 meq/Dextrose/ Sodium Chloride 1,000 ml @ 100 mls/hr Q10H IV Last administered on 09/26/16 09:17; Admin Dose 100 MLS/HR; Start at 09:00 Meropenem 100 ml @ 200 mls/hr Q12 IVPB ; Start 09/26/16 at 10:30 Cefepime HCl (Maxipime 1gm/50 ml (Pmx)) 50 ml @ 100 mls/hr Q24H IVPB ; Start at 10:00 Miscellaneous Information (*Rx Drug Level Order Reminder*) VANCOMYCIN RANDOM LEVEL ON... ONCE ONCE XX ; Start 09/27/16 at 05:00; Stop 09/27/16 at 05:01 Assessment/Plan Chief Complaint/Hosp Course IMP: 1. Acute on Chronic Hypercapnic Respiratory Failure 2. Vent Dependence 3. Atrial Fibrillation, preserved ejection fraction with left atrial enlargement 4. Acute GI bleed possibly variceal 5. Acute renal failure 6. Chronic liver disease history of EtOH 6. Septic shock with multiorgan failure RECS: 1. Continue mechanical ventilation 2. Continue vasopressors 3. Urgent GI consult for possible endoscopy 4. Continue PPI 5. Mechanical ventilation with correction of metabolic acidosis 6. Renal consult 35 min CC time Discussed with staff and primary care team. Discussed with patient's family at bedside. Prognosis very poor CODE STATUS changed to DNR Problems: YAN[facility] BOO [facility], [facility] Sep 26, 2016 11:34
[2016-09-26] MEDS ORDERED: SOD CHLORIDE 0.9% 500 ML IV ONE (12:00)
--- NOTE | 2016-09-26 12:18 | CONS ---
Date/Time of Note Date/Time of Note DATE: 09/26/16 TIME: 12:14 Assessment/Plan Assessment/Plan Additional Assessment/Plan 1. Respiratory failure status post intubation 2. She of myocardial infarction 3] history of upper GI bleeding as noticed in the NG tube with blood Rule out esophageal varices peptic ulcer disease Rule out gastritis History of alcoholism plan Recommend octreotide drip Continue Protonix drip Recommend EGD Consultation Date/Type/Reason Admit Date/Time Aug 30, 2016 at 23:34 Hx of Present Illness History of blood coming out of the NG tube Patient is a 56-year-old gentleman admitted to the hospital because of history of a fall piquantly was found to have myocardial infarction Eventually he developed respiratory distress he was intubated and he is in the intensive care unit at this time Is a gastric tube showed evidence of blood hence a GI consultation is requested Found to have a high troponin level and is considered that he is having an acute myocardial infarction Currently is intubated and is unable to communicate he is unresponsive he is on Protonix drip myoglobin is around 17 g He has a history of daily alcoholism Constitutional: no complaints Eyes: no complaints ENT: no complaints Respiratory: other (Patient is on ventilator) Cardiovascular: no complaints Gastrointestinal: other (Patient has a rectal tube) Genitourinary: hematuria Musculoskeletal: no complaints Skin: other (Patient has onychomycosis) Neurologic: no complaints Lymphatic: no complaints Psychological: no complaints Past Medical History Medical History: congestive heart failure, coronary artery disease, hypertension, other (COPD, alcohol abuse) Past Surgical History Past Surgical Hx: no surgical history Social History Alcohol Use: heavy Smoking Status: Never smoker Exam/Review of Systems Vital Signs Vitals Vital Signs Date Time Temp Pulse Resp B/P Pulse Ox O2 Delivery O2 Flow Rate FiO2 09/26/16 11:15 132 27 79/32 96 09/26/16 11:00 Mechanical Ventilator 09/26/16 11:00 100 09/26/16 08:00 104.1 Intake and Output 09/25/16 09/25/16 09/26/16 15:00 23:00 07:00 Intake Total 1486.950 ml 563.170 ml 2039.325 ml Output Total 525 ml 2280 ml 1039 ml Balance 961.950 ml -1716.830 ml 1000.325 ml Exam Please refer to the nursing notes for vital signs \Patient is intubated and unresponsive \Nasogastric tube showing evidence of blood Blood pressure 110/82 Cardiovascular exam normal heart sounds Respiratory system occasional rales bilaterally Abdomen showed severe distention Results Result Diagram: 09/26/16 0430 09/26/16 0430 Results 24 hrs Laboratory Tests Test 09/25/16 20:14 09/26/16 00:05 09/26/16 04:30 09/26/16 07:00 Blood Gas Specimen Source Blood arterial Blood arterial Arterial Blood Date Drawn 09/25/2016 8:29:55 PM 09/26/2016 7:14:07 AM Arterial Blood pH (Temp corrected) 7.399 7.156 *L Arterial Blood pCO2 (Temp correct) 32.9 L 36.4 Arterial Blood pO2 (Temp corrected) 124.1 H 137.2 H Arterial Blood HCO3 19.9 L 12.6 L Arterial Blood Base Excess -3.8 L -15.3 L Arterial Blood Oxygen Saturation 98.4 H 98.2 H Dilshad Test ACCEPTAB ACCEPTAB Arterial Blood Gas Puncture Site Right Radial Right Radial Arterial Blood Carboxyhemoglobin 0.4 0.2 Arterial Blood Methemoglobin 0.4 0.5 Blood Gas A-a O2 Differential 556.0 H 539.4 H Oxyhemoglobin Percent 97.6 97.5 Total Hemoglobin 16.6 17.4 Blood Gas Temperature 37.0 37.0 Blood Gas Respiration Rate 20.0 20.0 Blood Gas Actual Respiration Rate 32 33 Blood Gas Modality VENT - AC VENT - AC FiO2 100.0 100.0 Blood Gas Tidal Volume 550.0 550.0 Blood Gas Mean Airway Pressure 21 Blood Gas Low PEEP Setting 5.0 Blood Gas Inspiratory Pressure 35.0 Blood Gas Notified Reagan DEAL Blood Gas Notified Time 09/25/2016 8:41:43 PM 09/26/2016 7:35:50 AM White Blood Count 23.5 #H 24.0 H Red Blood Count 5.56 # 5.91 Hemoglobin 16.6 # 17.1 Hematocrit 49.5 # 54.0 H Mean Corpuscular Volume 89.0 91.4 Mean Corpuscular Hemoglobin 29.9 28.9 L Mean Corpuscular Hemoglobin Concent 33.5 31.7 L Red Cell Distribution Width 15.2 H 16.3 H Platelet Count 263 # 253 Mean Platelet Volume 12.2 H 12.9 H Neutrophils % 88.5 H 77.0 Lymphocytes % 4.0 L 14.0 L Monocytes % 6.2 Eosinophils % 0.0 Basophils % 0.6 Nucleated Red Blood Cells % 0.0 Neutrophils # 20.8 H 18.5 H Lymphocytes # 1.0 3.4 H Monocytes # 1.5 H Eosinophils # 0.0 Basophils # 0.1 Nucleated Red Blood Cells # 0.0 Prothrombin Time 16.3 H Prothrombin Time Ratio 1.3 INR International Normalized Ratio 1.30 Activated Partial Thromboplast Time 29.6 Sodium Level 149 H 144 Potassium Level 4.5 4.7 Chloride Level 108 109 Carbon Dioxide Level 24 15 L Anion Gap 22 H 25 H Blood Urea Nitrogen 28 H 31 H Creatinine 2.23 #H 3.18 H Glucose Level 167 149 Calcium Level 10.5 H 9.8 Total Bilirubin 1.0 1.0 Direct Bilirubin 0.00 0.00 Indirect Bilirubin 1.0 1.0 Aspartate Amino Transf (AST/SGOT) 53 H 105 #H Alanine Aminotransferase (ALT/SGPT) 47 51 Alkaline Phosphatase 167 H 158 H Total Protein 9.0 H 8.6 H Albumin 4.3 4.2 Globulin 4.70 H 4.40 H Albumin/Globulin Ratio 0.91 0.95 Band Neutrophils % 9.0 H Magnesium Level 2.5 B-Type Natriuretic Peptide 428 H Digoxin Level 0.7 #L Blood Gas High PEEP Setting 8.0 Blood Gas Critical Value Read Back G MILO RN Test 09/26/16 08:15 Lactic Acid Level 7.7 *H Medications Medications Current Medications Morphine Sulfate (morphine) 3 mg Q4H PRN IV PAIN; Start 08/31/16 at 01:00 Ondansetron HCl (Zofran Inj) 4 mg Q6H PRN IV NAUSEA AND/OR VOMITING Last administered on 09/18/16 12:37; Admin Dose 4 MG; Start 08/31/16 at 02:00 Morphine Sulfate 2 mg 2 mg Q4H PRN IV PAIN LEVEL 7-10 Last administered on 09/14 09:45; Admin Dose 2 MG; Start 08/31/16 at 02:00 Propofol 100 ml @ 4.695 mls/ hr Q12H IV Last administered on 09/26/16 05:03; Admin Dose 23.475 MLS/HR; Start 09/07/16 at 13:30 Norepinephrine/ Dextrose (Levophed/D5W) 500 ml @ 1.87 mls/hr TITRATE IV Last administered on 09/26/16 04:29; Admin Dose 1.87 MLS/HR; Start 09/07/16 at 17:00 IV Flush (NS 10 ml) 10 ml PRN PRN IV IV PROTOCOL; Start 09/08/16 at 17:00 Potassium Chloride (Potassium Chloride Pwd/Soln) 20 meq BID NGT Last administered on 09/25/16 22:06; Admin Dose 20 MEQ; Start 09/11/16 at 21:00 Atorvastatin Calcium (Lipitor) 10 mg QHS NGT Last administered on 09/25/16 22: 06; Admin Dose 10 MG; Start 09/11/16 at 20:06 Famotidine (Pepcid) 20 mg BID NGT Last administered on 09/25/16 22:06; Admin Dose 20 MG; Start 09/11/16 at 20:06 Ferrous Sulfate (Feosol Liquid Cup) 300 mg DAILY NGT Last administered on 08:19; Admin Dose 300 MG; Start 09/12/16 at 09:00 Folic Acid (Folic Acid) 1 mg DAILY NGT Last administered on 09/25/16 08:19; Admin Dose 1 MG; Start 09/11/16 at 20:10 Losartan Potassium (Cozaar) 50 mg BID NGT ; Start 09/11/16 at 20:10; Status Future Hold Multivitamins Therapeutic (Theragran) 1 tab DAILY NGT Last administered on 08:55; Admin Dose 1 TAB; Start 09/11/16 at 20:11 Thiamine HCl (Vitamin B1) 100 mg DAILY NGT Last administered on 09/25/16 08:19 ; Admin Dose 100 MG; Start 09/11/16 at 20:11 Bisacodyl (Dulcolax Supp) 10 mg DAILY PRN [place] CONSTIPATION Last administered on 09/21/16 15:18; Admin Dose 10 MG; Start 09/14/16 at 09:00 Diltiazem HCl 60 mg 60 mg QID NGT Last administered on 09/25/16 22:06; Admin Dose 60 MG; Start 09/16/16 at 13:00 Phenylephrine HCl/ Dextrose (Jacinto-Syneph/D5W) 500 ml @ 75 mls/hr TITRATE IV Last administered on 09/26/16 10:48; Admin Dose 225 MLS/HR; Start 09/16/16 at 18 :30 Apixaban (Eliquis) 2.5 mg BID PO Last administered on 09/24/16 08:25; Admin Dose 2.5 MG; Start 09/20/16 at 21:00; Status Future Hold Loperamide HCl (Imodium Cap) 2 mg QID PRN PO DIARRHEA Last administered on 16:00; Admin Dose 2 MG; Start 09/22/16 at 10:00 Lactulose (Enulose) 60 gm Q6 NGT Last administered on 09/25/16 17:01; Admin Dose 60 GM; Start 09/23/16 at 12:00 Acetaminophen (Tylenol Liquid) 650 mg Q4H PRN NGT PAIN AND OR ELEVATED TEMP Last administered on 09/25/16 09:57; Admin Dose 650 MG; Start 09/24/16 at 08:00 Furosemide 40 mg 40 mg DAILY IV Last administered on 09/25/16 08:19; Admin Dose 40 MG; Start 09/24/16 at 10:30 Pantoprazole 80 mg/Sodium Chloride 100 ml @ 10 mls/hr Q10H IV Last administered on 09/26/16 08:18; Admin Dose 10 MLS/HR; Start 09/26/16 at 00:00 Sodium Chloride 1,000 ml @ 75 mls/hr [id number] IV Last administered on 09/26/16 02:00; Admin Dose 75 MLS/HR; Start 09/26/16 at 01:30 Albumin Human 100 ml @ 100 mls/hr Q8H IV Last administered on 09/26/16 07:36; Admin Dose 100 MLS/HR; Start 09/26/16 at 07:30; Stop 09/27/16 at 00:29 Vasopressin 60 unit/Dextrose 60 ml @ 0 mls/hr TITRATE IV ; Start 09/26/16 at 09: 00 Sodium Bicarbonate 100 meq/Dextrose/ Sodium Chloride 1,000 ml @ 100 mls/hr Q10H IV Last administered on 09/26/16 09:17; Admin Dose 100 MLS/HR; Start at 09:00 Cefepime HCl (Maxipime 1gm/50 ml (Pmx)) 50 ml @ 100 mls/hr Q24H IVPB ; Start at 10:00 Miscellaneous Information VANCOMYCIN RANDOM LEVEL ON... ONCE ONCE XX ; Start at 05:00; Stop 09/27/16 at 05:01 Levofloxacin/ Dextrose 150 ml @ 100 mls/hr Q48H IVPB ; Start 09/26/16 at 13:00 Sodium Chloride (NS) 500 ml @ 500 mls/hr Q1H ONCE IV ; Start 09/26/16 at 12:00; Stop 09/26/16 at 12:59 CHARLIE KURTZ MD Sep 26, 2016 12:18
[2016-09-26] MEDS ORDERED: LEVOFLOXACIN 750MG/D5W (PMX) 150 ML IVPB SCH (13:00)
[2016-09-26 13:18] LABS: AADO2 Arterial 402.7 mmHg (7.0-24.0); Arterial COHb 0 % (0.0-3.0); Arterial Fraction of Oxyhgb 98.8 % (93.0-99.0); Arterial MetHb 0.6 % (0.0-1.5); Arterial Total Hemglobin 17.3 g/dl (12.0-18.0); MODE VENT - AC
[2016-09-26] MEDS ORDERED: OCTREOTIDE 50 MCG in SOD CHLORIDE 0.9% 50 ML IVPB ONE (13:30)
[2016-09-26 13:42] LABS: HEMOGLOBIN 15.7 g/dl (14.0-18.0)
[2016-09-26] MEDS: OCTREOTIDE 500 MCG in SOD CHLORIDE 0.9% 49 ML IV SCH (14:12)
--- NOTE | 2016-09-26 14:24 | CONS ---
Date/Time of Note Date/Time of Note DATE: 09/26/16 TIME: 14:14 Assessment/Plan Assessment/Plan Additional Assessment/Plan 1. Acute respiratory failure - now in septic shock, sec to possible res source. Acute on chronic. Hypoxic and hypercapnic. 2. Essential hypertension. 3. Chronic obstructive pulmonary disease. 4. Chest pain. 5. Atrial fibrillation 6. Alcoholic liver disease 7. Thrombocytopenia. 8. Alcohol abuse. 10. Possible aspiration with aspiration pneumonia 11. Acute on chronic CHF exacerbation. 12. Fluid, electrolytes and nutrition. 13. ROSSANA in the setting of SHOCK, ATN Pt is unstable at this time Unable to perform HD at this time Cont to monitor ACID/Base status, Volume Electroltyes and renal function closely Will change IVFs to D5W with 3 amps bicarb, 2 Bolus ordered Repeat ABG in 4 hours Monitor UO closely, Strict Is and Os Planned for EGD this evening Keep MAPS>60mmHg Consultation Date/Type/Reason Admit Date/Time Aug 30, 2016 at 23:34 Type of Consultation: Renal Referring Provider: ERIK MORTON 24 HR Interval Summary Subjective hx not possible: pt critical status Constitutional: requiring O2 Exam/Review of Systems Vital Signs Vitals Vital Signs Date Time Temp Pulse Resp B/P Pulse Ox O2 Delivery O2 Flow Rate FiO2 09/26/16 12:00 117 09/26/16 11:15 27 79/32 96 09/26/16 11:00 Mechanical Ventilator 09/26/16 11:00 100 09/26/16 08:00 104.1 Intake and Output 09/25/16 09/25/16 09/26/16 15:00 23:00 07:00 Intake Total 1486.950 ml 563.170 ml 2039.325 ml Output Total 525 ml 2280 ml 1039 ml Balance 961.950 ml -1716.830 ml 1000.325 ml Exam ENMT: intubated Respiratory: crackles/rales, diminished breath sounds Cardiovascular: edema, regular rate and rhythm Gastrointestinal: distended, soft Extremities: pitting pedal edema Neurological: other (sedated) Results Result Diagram: 09/26/16 1330 09/26/16 0430 Results 24 hrs Laboratory Tests Test 09/25/16 20:14 09/26/16 00:05 09/26/16 04:30 09/26/16 07:00 Blood Gas Specimen Source Blood arterial Blood arterial Arterial Blood Date Drawn 09/25/2016 8:29:55 PM 09/26/2016 7:14:07 AM Arterial Blood pH (Temp corrected) 7.399 7.156 *L Arterial Blood pCO2 (Temp correct) 32.9 L 36.4 Arterial Blood pO2 (Temp corrected) 124.1 H 137.2 H Arterial Blood HCO3 19.9 L 12.6 L Arterial Blood Base Excess -3.8 L -15.3 L Arterial Blood Oxygen Saturation 98.4 H 98.2 H Dilshad Test ACCEPTAB ACCEPTAB Arterial Blood Gas Puncture Site Right Radial Right Radial Arterial Blood Carboxyhemoglobin 0.4 0.2 Arterial Blood Methemoglobin 0.4 0.5 Blood Gas A-a O2 Differential 556.0 H 539.4 H Oxyhemoglobin Percent 97.6 97.5 Total Hemoglobin 16.6 17.4 Blood Gas Temperature 37.0 37.0 Blood Gas Respiration Rate 20.0 20.0 Blood Gas Actual Respiration Rate 32 33 Blood Gas Modality VENT - AC VENT - AC FiO2 100.0 100.0 Blood Gas Tidal Volume 550.0 550.0 Blood Gas Mean Airway Pressure 21 Blood Gas Low PEEP Setting 5.0 Blood Gas Inspiratory Pressure 35.0 Blood Gas Notified Whom CASH [facility] Blood Gas Notified Time 09/25/2016 8:41:43 PM 09/26/2016 7:35:50 AM White Blood Count 23.5 #H 24.0 H Red Blood Count 5.56 # 5.91 Hemoglobin 16.6 # 17.1 Hematocrit 49.5 # 54.0 H Mean Corpuscular Volume 89.0 91.4 Mean Corpuscular Hemoglobin 29.9 28.9 L Mean Corpuscular Hemoglobin Concent 33.5 31.7 L Red Cell Distribution Width 15.2 H 16.3 H Platelet Count 263 # 253 Mean Platelet Volume 12.2 H 12.9 H Neutrophils % 88.5 H 77.0 Lymphocytes % 4.0 L 14.0 L Monocytes % 6.2 Eosinophils % 0.0 Basophils % 0.6 Nucleated Red Blood Cells % 0.0 Neutrophils # 20.8 H 18.5 H Lymphocytes # 1.0 3.4 H Monocytes # 1.5 H Eosinophils # 0.0 Basophils # 0.1 Nucleated Red Blood Cells # 0.0 Prothrombin Time 16.3 H Prothrombin Time Ratio 1.3 INR International Normalized Ratio 1.30 Activated Partial Thromboplast Time 29.6 Sodium Level 149 H 144 Potassium Level 4.5 4.7 Chloride Level 108 109 Carbon Dioxide Level 24 15 L Anion Gap 22 H 25 H Blood Urea Nitrogen 28 H 31 H Creatinine 2.23 #H 3.18 H Glucose Level 167 149 Calcium Level 10.5 H 9.8 Total Bilirubin 1.0 1.0 Direct Bilirubin 0.00 0.00 Indirect Bilirubin 1.0 1.0 Aspartate Amino Transf (AST/SGOT) 53 H 105 #H Alanine Aminotransferase (ALT/SGPT) 47 51 Alkaline Phosphatase 167 H 158 H Total Protein 9.0 H 8.6 H Albumin 4.3 4.2 Globulin 4.70 H 4.40 H Albumin/Globulin Ratio 0.91 0.95 Band Neutrophils % 9.0 H Magnesium Level 2.5 B-Type Natriuretic Peptide 428 H Digoxin Level 0.7 #L Blood Gas High PEEP Setting 8.0 Blood Gas Critical Value Read Back Erin VALDEZ RN Test 09/26/16 08:15 09/26/16 12:05 09/26/16 12:12 09/26/16 13:30 Lactic Acid Level 7.7 *H 9.5 *H Blood Gas Specimen Source Blood arterial Arterial Blood Date Drawn 09/26/2016 1:05:43 PM Arterial Blood pH (Temp corrected) 7.042 *L Arterial Blood pCO2 (Temp correct) 37.6 Arterial Blood pO2 (Temp corrected) 272.7 H Arterial Blood HCO3 10.0 L Arterial Blood Base Excess -20.0 L Arterial Blood Oxygen Saturation 99.4 H Dilshad Test N/A Arterial Blood Gas Puncture Site Right Brachial Arterial Blood Carboxyhemoglobin 0 Arterial Blood Methemoglobin 0.6 Blood Gas A-a O2 Differential 402.7 H Oxyhemoglobin Percent 98.8 Total Hemoglobin 17.3 Blood Gas Temperature 37.0 Blood Gas Respiration Rate 20.0 Blood Gas Actual Respiration Rate 38 Blood Gas Modality VENT - AC FiO2 100.0 Blood Gas Tidal Volume 550.0 Blood Gas High PEEP Setting 8.0 Blood Gas Critical Value Read Back Erin VALDEZ RN Blood Gas Notified Whom TM Blood Gas Notified Time 09/26/2016 1:18:26 PM Hemoglobin 15.7 Hematocrit 49.0 Medications Medications Current Medications Morphine Sulfate (morphine) 3 mg Q4H PRN IV PAIN; Start 08/31/16 at 01:00 Ondansetron HCl (Zofran Inj) 4 mg Q6H PRN IV NAUSEA AND/OR VOMITING Last administered on 09/18/16 12:37; Admin Dose 4 MG; Start 08/31/16 at 02:00 Morphine Sulfate 2 mg 2 mg Q4H PRN IV PAIN LEVEL 7-10 Last administered on 09/14 09:45; Admin Dose 2 MG; Start 08/31/16 at 02:00 Propofol 100 ml @ 4.695 mls/ hr Q12H IV Last administered on 09/26/16 05:03; Admin Dose 23.475 MLS/HR; Start 09/07/16 at 13:30 Norepinephrine/ Dextrose (Levophed/D5W) 500 ml @ 1.87 mls/hr TITRATE IV Last administered on 09/26/16 04:29; Admin Dose 1.87 MLS/HR; Start 09/07/16 at 17:00 IV Flush (NS 10 ml) 10 ml PRN PRN IV IV PROTOCOL; Start 09/08/16 at 17:00 Potassium Chloride (Potassium Chloride Pwd/Soln) 20 meq BID NGT Last administered on 09/25/16 22:06; Admin Dose 20 MEQ; Start 09/11/16 at 21:00 Atorvastatin Calcium (Lipitor) 10 mg QHS NGT Last administered on 09/25/16 22: 06; Admin Dose 10 MG; Start 09/11/16 at 20:06 Famotidine (Pepcid) 20 mg BID NGT Last administered on 09/25/16 22:06; Admin Dose 20 MG; Start 09/11/16 at 20:06 Ferrous Sulfate (Feosol Liquid Cup) 300 mg DAILY NGT Last administered on 08:19; Admin Dose 300 MG; Start 09/12/16 at 09:00 Folic Acid (Folic Acid) 1 mg DAILY NGT Last administered on 09/25/16 08:19; Admin Dose 1 MG; Start 09/11/16 at 20:10 Losartan Potassium (Cozaar) 50 mg BID NGT ; Start 09/11/16 at 20:10; Status Future Hold Multivitamins Therapeutic (Theragran) 1 tab DAILY NGT Last administered on 08:55; Admin Dose 1 TAB; Start 09/11/16 at 20:11 Thiamine HCl (Vitamin B1) 100 mg DAILY NGT Last administered on 09/25/16 08:19 ; Admin Dose 100 MG; Start 09/11/16 at 20:11 Bisacodyl (Dulcolax Supp) 10 mg DAILY PRN [place] CONSTIPATION Last administered on 09/21/16 15:18; Admin Dose 10 MG; Start 09/14/16 at 09:00 Diltiazem HCl 60 mg 60 mg QID NGT Last administered on 09/25/16 22:06; Admin Dose 60 MG; Start 09/16/16 at 13:00 Phenylephrine HCl/ Dextrose (Jacinto-Syneph/D5W) 500 ml @ 75 mls/hr TITRATE IV Last administered on 09/26/16 12:54; Admin Dose 225 MLS/HR; Start 09/16/16 at 18 :30 Apixaban (Eliquis) 2.5 mg BID PO Last administered on 09/24/16 08:25; Admin Dose 2.5 MG; Start 09/20/16 at 21:00; Status Future Hold Loperamide HCl (Imodium Cap) 2 mg QID PRN PO DIARRHEA Last administered on 16:00; Admin Dose 2 MG; Start 09/22/16 at 10:00 Lactulose (Enulose) 60 gm Q6 NGT Last administered on 09/25/16 17:01; Admin Dose 60 GM; Start 09/23/16 at 12:00 Acetaminophen (Tylenol Liquid) 650 mg Q4H PRN NGT PAIN AND OR ELEVATED TEMP Last administered on 09/25/16 09:57; Admin Dose 650 MG; Start 09/24/16 at 08:00 Furosemide 40 mg 40 mg DAILY IV Last administered on 09/25/16 08:19; Admin Dose 40 MG; Start 09/24/16 at 10:30 Pantoprazole 80 mg/Sodium Chloride 100 ml @ 10 mls/hr Q10H IV Last administered on 09/26/16 08:18; Admin Dose 10 MLS/HR; Start 09/26/16 at 00:00 Sodium Chloride 1,000 ml @ 75 mls/hr [id number] IV Last administered on 09/26/16 02:00; Admin Dose 75 MLS/HR; Start 09/26/16 at 01:30 Albumin Human 100 ml @ 100 mls/hr Q8H IV Last administered on 09/26/16 07:36; Admin Dose 100 MLS/HR; Start 09/26/16 at 07:30; Stop 09/27/16 at 00:29 Vasopressin 60 unit/Dextrose 60 ml @ 0 mls/hr TITRATE IV ; Start 09/26/16 at 09: 00 Cefepime HCl (Maxipime 1gm/50 ml (Pmx)) 50 ml @ 100 mls/hr Q24H IVPB ; Start at 10:00 Miscellaneous Information VANCOMYCIN RANDOM LEVEL ON... ONCE ONCE XX ; Start at 05:00; Stop 09/27/16 at 05:01 Levofloxacin/ Dextrose 150 ml @ 100 mls/hr Q48H IVPB Last administered on 12:29; Admin Dose 100 MLS/HR; Start 09/26/16 at 13:00 Octreotide Acetate 500 mcg/ Sodium Chloride 50 ml @ 2.5 mls/hr Q20H IV ; Start 09/26/16 at 13:30 Sodium Bicarbonate/ Dextrose (Na Bicarb/D5W) 1,150 ml @ 100 mls/hr [id number] IV ; Start 09/26/16 at 15:00 Procedures Procedures PROCEDURE: XR Chest. CLINICAL INDICATION: Shortness of breath TECHNIQUE: A single AP view of the chest was obtained. COMPARISON: Chest x-ray dated 09/24/2016 and 09/25/2016 FINDINGS: The endotracheal tube tip is approximately 4.8 cm above the amber. The tip of the enteric tube extends below the left diaphragm. There is a right upper extremity PICC line with tip near the cavoatrial junction. Lung volumes are low with compressive changes, vascular crowding and basilar atelectasis. There is blunting of the left costophrenic angle. No pneumothorax is seen. The cardiomediastinal silhouette is mildly enlarged. Calcifications are seen within the aortic arch. The osseous structures are unremarkable. IMPRESSION: 1. Low lung volumes with compressive changes and basilar atelectasis. There is blunting of the left costophrenic angle which may reflect small left pleural effusion. Otherwise, no significant interval change. 2. Mild cardiomegaly and aortic atherosclerosis. 3. Tubes and lines, as described above. RPTAT: HH .Geeta Escoto MD, MD Date Time Electronically viewed and signed by .Geeta Escoto MD, on 09/26/2016 06 :44 OLENA SINCLAIR MD Sep 26, 2016 14:24
[2016-09-26] MEDS: SODIUM BICARBONATE (IV ADD) 150 MEQ in DEXTROSE 5% 1,000 ML IV SCH (15:19)
[2016-09-26] MEDS ORDERED: LIDOCAINE 2% (SDV) 5 ML INJ ONE (16:48)
[2016-09-26] MEDS ORDERED: PROPOFOL 40 ML ONE (16:48)
[2016-09-26] MEDS ORDERED: PHENYLephrine (100 MCG/ML) 5ML SYG ONE (16:55)
--- NOTE | 2016-09-26 18:10 | OPR ---
Date/Time of Note Date/Time of Note DATE: 09/26/16 TIME: 18:06 Operative Report Free Text/Dictation Dr. Sotelo dictating the operative procedure Esophagogastroduodenoscopy Preop diagnosis upper GI bleed post op diagnosis #1 prepyloric ulcer #2 multiple duodenal ulcers #3 severe gastritis #4 severe esophagitis Procedure I after the informed written consent is obtained patient was asked when the left lateral side intravenous anesthesia was given by anesthesiologist Dr. galvan When the patient becomes somnolent Olympus video upper endoscope was introduced into the oropharynx and then into the esophagus Esophagus showed multiple erosions in the diffuse erythema biopsies were obtained to rule out opportunistic infections like CMV Arin and herpes Scope with the stem was advanced into the stomach 1 cm circular ulcer noted in the prepyloric area with a superficial crater Stigmata of bleeding was noted By using the BiCAP cauterization of this ulcer was performed Rest of the stomach showed evidence of severe gastritis Duodenum was examined which showed evidence of multiple ulcers 2 biopsies were obtained to rule out opportunistic infections Understand scope was withdrawn and the procedure was terminated Plan recommend continue Protonix drip and also octreotide drip Transfuse as needed Procedure Date: Sep 26, 2016 CHARLIE SOTELO MD Sep 26, 2016 18:10
[2016-09-26] MEDS ORDERED: EPINEPHrine 4 MG in DEXTROSE 5% 246 ML IV SCH (18:30)
[2016-09-26 19:58] LABS: HEMATOCRIT 52.3 % (42.0-52.0); HEMOGLOBIN 15.9 g/dl (14.0-18.0)
[2016-09-26] MEDS: ATORVASTATIN 10 MG TAB NGT SCH (21:00)
[2016-09-26] MEDS: morphine 2 MG INJ IV PRN (21:27)
[2016-09-26] MEDS: AL HYDROX/MG HYDROX/SIMETH 30 ML CUP NGT SCH (22:08)
[2016-09-26] MEDS ORDERED: LORAZEPAM 2 MG INJ IV ONE (23:30)
[2016-09-27] VITALS (66 sets, daily range): BP systolic 55–171; BP diastolic 31–114; PULSE 0–121; RESP 20–36
[2016-09-27 00:08] LABS: AADO2 Arterial 454.6 mmHg (7.0-24.0); Allen Test ACCEPTAB; Arterial Base Excess -21.6 mmol/L (-3.0-3); Arterial COHb 0.5 % (0.0-3.0); Arterial Fraction of Oxyhgb 98.4 % (93.0-99.0); Arterial HCO3 8.6 mmol/L (22.0-26.0); Arterial MetHb 0.5 % (0.0-1.5); Arterial Total Hemglobin 15.4 g/dl (12.0-18.0); MODE VENT - AC
[2016-09-27] MEDS: IPRATROPIUM (HFA) 12.9 GM INHALER INH SCH ×3 (01:01→13:43)
[2016-09-27] MEDS: MIDAZOLAM (DRIP) 50 mg/50 mL 50 ML IV SCH ×2 (01:14→08:55)
[2016-09-27] MEDS: SOD CHLORIDE 0.45% 1,000 ML IV SCH (01:18)
[2016-09-27] MEDS: PHENYLephrine 40 MG in DEXTROSE 5% 496 ML IV SCH ×2 (02:05→04:17)
[2016-09-27] MEDS: AL HYDROX/MG HYDROX/SIMETH 30 ML CUP NGT SCH ×9 (02:16→16:00)
[2016-09-27] MEDS: SODIUM BICARBONATE (IV ADD) 150 MEQ in DEXTROSE 5% 1,000 ML IV SCH (02:17)
[2016-09-27 05:11] LABS: ADD SCAN DIFF NO
[2016-09-27 05:20] LABS: ABNORMAL IP MESSAGE 1; BASOPHIL # 0.1 10^3/ul (0.0-0.1); BASOPHILS % 0.1 % (0.0-2.0); HEMATOCRIT 43.6 % (42.0-52.0); HEMOGLOBIN 13.7 g/dl (14.0-18.0); LYMPHOCYTES # 2.1 10^3/ul (0.8-2.9); LYMPHOCYTES % 5.9 % (15.0-51.0); MEAN CORPUSCULAR HEMOGLOBIN 30.2 pg (29.0-33.0); MEAN CORPUSCULAR HGB CONC 31.4 g/dl (32.0-37.0); MEAN PLATELET VOLUME 13.4 fl (7.4-10.4); MONOCYTE # 1.7 10^3/ul (0.3-0.9); MONOCYTES % 4.8 % (0.0-11.0); NEUTROPHIL # 30.8 10^3/ul (1.6-7.5); NEUTROPHILS % 87.9 % (39.0-77.0); NUCLEATED RED BLOOD CELLS% 0.1 /100WBC (0.0-0.0); PLATELET COUNT 105 10^3/UL (140-415); RED BLOOD COUNT 4.54 10^6/ul (4.70-6.10); RED CELL DISTRIBUTION WIDTH 15.2 % (11.5-14.5)
[2016-09-27 05:45] LABS: CALCIUM 7.6 mg/dl (8.4-10.2); MAGNESIUM 1.9 mg/dl (1.7-2.5); PHOSPHORUS 10.8 mg/dl (2.5-4.9); POTASSIUM 4.4 mmol/L (3.5-5.1)
[2016-09-27] MEDS ORDERED: PHENYLephrine 160 MG in DEXTROSE 5% 484 ML IV SCH (06:00)
[2016-09-27] MEDS ORDERED: NORepinephrine 32 MG in DEXTROSE 5% 218 ML IV SCH (06:00)
[2016-09-27] MEDS ORDERED: SOD CHLORIDE 0.9% 1,000 ML IV SCH (06:00)
[2016-09-27 06:17] LABS: CREATININE 5.19 mg/dl (0.61-1.24)
[2016-09-27] MEDS: ALBUTEROL 18 GM INHALER INH SCH ×2 (07:49→13:44)
[2016-09-27] MEDS: OCTREOTIDE 500 MCG in SOD CHLORIDE 0.9% 49 ML IV SCH (08:19)
--- NOTE | 2016-09-27 08:28 | CONS ---
Date/Time of Note Date/Time of Note DATE: 09/27/16 TIME: 08:25 Consult Date/Type/Reason Admit Date/Time Aug 30, 2016 at 23:34 Type of Consultation: pulm/ccm Ordering Provider: ERIK MORTON Subjective Sedated on 3 pressors on vent. Objective Vital Signs Date Time Temp Pulse Resp B/P Pulse Ox O2 Delivery O2 Flow Rate FiO2 09/27/16 07:15 99 29 94/56 93 09/27/16 07:00 Mechanical Ventilator 09/27/16 06:00 98.7 09/27/16 05:00 100 Intake and Output 09/26/16 09/26/16 09/27/16 15:00 23:00 07:00 Intake Total 4746.84 ml 3460.61 ml 3573.15 ml Output Total 1200 ml 905 ml 160 ml Balance 3546.84 ml 2555.61 ml 3413.15 ml Exam HEENT: Neck supple; no JVD; no LAD, ET tube in place CVS: irreg, S1 and S2 CHEST: Coarse BS ABD: Soft, NT, + BS, obese, distended EXT: No c/c/ +++ edema Results/Medications Result Diagram: 09/27/16 0452 09/27/16 0452 Results 24 hrs Laboratory Tests Test 09/26/16 12:05 09/26/16 12:12 09/26/16 13:30 09/26/16 17:25 Lactic Acid Level 9.5 *H 11.9 *H Blood Gas Specimen Source Blood arterial Arterial Blood Date Drawn 09/26/2016 1:05:43 PM Arterial Blood pH (Temp corrected) 7.042 *L Arterial Blood pCO2 (Temp correct) 37.6 Arterial Blood pO2 (Temp corrected) 272.7 H Arterial Blood HCO3 10.0 L Arterial Blood Base Excess -20.0 L Arterial Blood Oxygen Saturation 99.4 H Dilshad Test N/A Arterial Blood Gas Puncture Site Right Brachial Arterial Blood Carboxyhemoglobin 0 Arterial Blood Methemoglobin 0.6 Blood Gas A-a O2 Differential 402.7 H Oxyhemoglobin Percent 98.8 Total Hemoglobin 17.3 Blood Gas Temperature 37.0 Blood Gas Respiration Rate 20.0 Blood Gas Actual Respiration Rate 38 Blood Gas Modality VENT - AC FiO2 100.0 Blood Gas Tidal Volume 550.0 Blood Gas High PEEP Setting 8.0 Blood Gas Critical Value Read Back G MILO RN Blood Gas Notified Whom TM Blood Gas Notified Time 09/26/2016 1:18:26 PM Hemoglobin 15.7 Hematocrit 49.0 Test 09/26/16 19:40 09/26/16 23:47 09/27/16 01:28 09/27/16 04:52 Hemoglobin 15.9 13.7 L Hematocrit 52.3 H 43.6 Blood Gas Specimen Source Blood arterial Arterial Blood Date Drawn 09/26/2016 11:55:38 AM Arterial Blood pH (Temp corrected) 7.020 *L Arterial Blood pCO2 (Temp correct) 34.0 L Arterial Blood pO2 (Temp corrected) 224.4 H Arterial Blood HCO3 8.6 *L Arterial Blood Base Excess -21.6 L Arterial Blood Oxygen Saturation 99.4 H Dilshad Test ACCEPTAB Arterial Blood Gas Puncture Site Right Radial Arterial Blood Carboxyhemoglobin 0.5 Arterial Blood Methemoglobin 0.5 Blood Gas A-a O2 Differential 454.6 H Oxyhemoglobin Percent 98.4 Total Hemoglobin 15.4 Blood Gas Temperature 37.0 Blood Gas Respiration Rate 20.0 Blood Gas Actual Respiration Rate 32 Blood Gas Modality VENT - AC FiO2 100.0 Blood Gas Tidal Volume 550.0 Blood Gas Low PEEP Setting 8.0 Blood Gas Critical Value Read Back K CHAPIN RN Blood Gas Notified Whom UP Blood Gas Notified Time 09/27/2016 12:08:19 AM Lactic Acid Level 14.1 *H 15.2 *H White Blood Count 35.0 #H Red Blood Count 4.54 #L Mean Corpuscular Volume 96.0 Mean Corpuscular Hemoglobin 30.2 Mean Corpuscular Hemoglobin Concent 31.4 L Red Cell Distribution Width 15.2 H Platelet Count 105 #L Mean Platelet Volume 13.4 H Neutrophils % 87.9 H Lymphocytes % 5.9 L Monocytes % 4.8 Eosinophils % 0.0 Basophils % 0.1 Nucleated Red Blood Cells % 0.1 H Neutrophils # 30.8 H Lymphocytes # 2.1 Monocytes # 1.7 H Eosinophils # 0.0 Basophils # 0.1 Nucleated Red Blood Cells # 0.0 Sodium Level 128 #L Potassium Level 4.4 Chloride Level 89 #L Carbon Dioxide Level 12 L Anion Gap 31 H Blood Urea Nitrogen 32 H Creatinine 5.19 #H Glucose Level 164 Calcium Level 7.6 L Phosphorus Level 10.8 H Magnesium Level 1.9 Medications Current Medications Morphine Sulfate (morphine) 3 mg Q4H PRN IV PAIN; Start 08/31/16 at 01:00 Ondansetron HCl (Zofran Inj) 4 mg Q6H PRN IV NAUSEA AND/OR VOMITING Last administered on 09/18/16 12:37; Admin Dose 4 MG; Start 08/31/16 at 02:00 Morphine Sulfate 2 mg 2 mg Q4H PRN IV PAIN LEVEL 7-10 Last administered on 21:27; Admin Dose 2 MG; Start 08/31/16 at 02:00 Propofol (Diprivan) 100 ml @ 4.695 mls/ hr Q12H IV Last administered on 05:03; Admin Dose 23.475 MLS/HR; Start 09/07/16 at 13:30 IV Flush (NS 10 ml) 10 ml PRN PRN IV IV PROTOCOL; Start 09/08/16 at 17:00 Potassium Chloride (Potassium Chloride Pwd/Soln) 20 meq BID NGT Last administered on 09/25/16 22:06; Admin Dose 20 MEQ; Start 09/11/16 at 21:00; Status Future Hold Atorvastatin Calcium (Lipitor) 10 mg QHS NGT Last administered on 09/25/16 22: 06; Admin Dose 10 MG; Start 09/11/16 at 20:06; Status Future Hold Famotidine (Pepcid) 20 mg BID NGT Last administered on 09/25/16 22:06; Admin Dose 20 MG; Start 09/11/16 at 20:06; Status Future Hold Ferrous Sulfate (Feosol Liquid Cup) 300 mg DAILY NGT Last administered on 08:19; Admin Dose 300 MG; Start 09/12/16 at 09:00; Status Future Hold Folic Acid (Folic Acid) 1 mg DAILY NGT Last administered on 09/25/16 08:19; Admin Dose 1 MG; Start 09/11/16 at 20:10; Status Future Hold Losartan Potassium (Cozaar) 50 mg BID NGT ; Start 09/11/16 at 20:10; Status Future Hold Multivitamins Therapeutic (Theragran) 1 tab DAILY NGT Last administered on 08:55; Admin Dose 1 TAB; Start 09/11/16 at 20:11; Status Future Hold Thiamine HCl (Vitamin B1) 100 mg DAILY NGT Last administered on 09/25/16 08:19 ; Admin Dose 100 MG; Start 09/11/16 at 20:11; Status Future Hold Bisacodyl (Dulcolax Supp) 10 mg DAILY PRN [place] CONSTIPATION Last administered on 09/21/16 15:18; Admin Dose 10 MG; Start 09/14/16 at 09:00 Diltiazem HCl (Cardizem) 60 mg QID NGT Last administered on 09/25/16 22:06; Admin Dose 60 MG; Start 09/16/16 at 13:00 Apixaban (Eliquis) 2.5 mg BID PO Last administered on 09/24/16 08:25; Admin Dose 2.5 MG; Start 09/20/16 at 21:00; Status Future Hold Loperamide HCl (Imodium Cap) 2 mg QID PRN PO DIARRHEA Last administered on 16:00; Admin Dose 2 MG; Start 09/22/16 at 10:00 Lactulose (Enulose) 60 gm Q6 NGT Last administered on 09/25/16 17:01; Admin Dose 60 GM; Start 09/23/16 at 12:00; Status Future Hold Acetaminophen (Tylenol Liquid) 650 mg Q4H PRN NGT PAIN AND OR ELEVATED TEMP Last administered on 09/25/16 09:57; Admin Dose 650 MG; Start 09/24/16 at 08:00 Furosemide 40 mg 40 mg DAILY IV Last administered on 09/25/16 08:19; Admin Dose 40 MG; Start 09/24/16 at 10:30 Pantoprazole 80 mg/Sodium Chloride 100 ml @ 10 mls/hr Q10H IV Last administered on 09/26/16 22:55; Admin Dose 10 MLS/HR; Start 09/26/16 at 00:00 Vasopressin 60 unit/Dextrose 60 ml @ 0 mls/hr TITRATE IV Last administered on 23:35; Admin Dose 2.4 MLS/HR; Start 09/26/16 at 09:00 Cefepime HCl 50 ml @ 100 mls/hr Q24H IVPB ; Start 09/27/16 at 10:00 Levofloxacin/ Dextrose 150 ml @ 100 mls/hr Q48H IVPB Last administered on 12:29; Admin Dose 100 MLS/HR; Start 09/26/16 at 13:00 Octreotide Acetate 500 mcg/ Sodium Chloride 50 ml @ 2.5 mls/hr Q20H IV Last administered on 09/26/16 14:12; Admin Dose 2.5 MLS/HR; Start 09/26/16 at 13:30 Sodium Bicarbonate 150 meq/Dextrose 1,150 ml @ 100 mls/hr [id number] IV Last administered on 09/27/16 02:17; Admin Dose 100 MLS/HR; Start 09/26/16 at 15:00 Epinephrine/ Dextrose (EPINEPHrine/D5W) 250 ml @ 3.75 mls/hr TITRATE IV ; Start 09/26/16 at 18:30 Al Hydrox/Mg Hydrox/ Simethicone 30 ml 30 ml Q2H NGT Last administered on 05:51; Admin Dose 30 ML; Start 09/26/16 at 22:00 Midazolam HCl 50 ml @ 1 mls/hr TITRATE IV Last administered on 09/27/16 01:14; Admin Dose 1 MLS/HR; Start 09/27/16 at 01:00 Sodium Chloride 1,000 ml @ 75 mls/hr [id number] IV Last administered on 09/27/16 06:33; Admin Dose 75 MLS/HR; Start 09/27/16 at 06:00 Phenylephrine HCl 160 mg/Dextrose 500 ml @ 18.75 mls/ hr TITRATE IV ; Start 09/27/16 at 06:00 Norepinephrine/ Dextrose (Levophed/D5W) 250 ml @ 0.46 mls/hr TITRATE IV ; Start 09/27/16 at 06:00 Assessment/Plan Additional Assessment/Plan IMP: 1. Acute on Chronic Hypercapnic Respiratory Failure 2. Vent Dependence 3. Refractory Shock with multiorgan failure 4. ARF 5. GIB 6. ESLD RECS: 1. continue pressors 2. NaHCO3 gtt 3. hydrocortisone 4 lactic acid 5. abx 6. DNR goals of care d/w mother at bedside 35 min cc time 35 min CC time JEANETTE DUVAL MD Sep 27, 2016 08:28
[2016-09-27] MEDS: FUROSEMIDE 40 MG INJ IV SCH (08:49)
[2016-09-27] MEDS: DILTIAZEM 60 MG TAB NGT SCH ×3 (08:50→17:00)
[2016-09-27] MEDS: PANTOPRAZOLE IV 80 MG in SOD CHLORIDE 0.9% 100 ML IV SCH (08:54)
[2016-09-27] MEDS: HYDROCORTISONE 100 MG INJ IV SCH ×2 (09:12→14:24)
[2016-09-27] MEDS ORDERED: CEFEPIME 1GM/50 ML (PMX) 50 ML IVPB SCH (10:00)
--- NOTE | 2016-09-27 10:19 | CONS ---
Date/Time of Note Date/Time of Note DATE: 09/27/16 TIME: :17 Assessment/Plan Assessment/Plan Chief Complaint/Hosp Course 1. Atrial fibrillation: now with RVR due to sepsis 2. septic shock: probably aspiration penumonia 3. Chronic obstructive pulmonary disease/ resp failure 4. Alcoholic liver disease. 5. Thrombocytopenia: 6. Morbid obesity. 7. Hyponatremia. 8. Hypomagnesemia, hypo K 9. Acute renal failure: probably ATN 10. hematuria: being evaluated by 11. anemia Problems: Additional Assessment/Plan 1) off amio 2) on pressors with improved heartrate 3) no AC for now Consultation Date/Type/Reason Admit Date/Time Aug 30, 2016 at 23:34 Initial Consult Date 09/24/16 Type of Consultation: cv Referring Provider: ERIK MORTON 24 HR Interval Summary Free Text/Dictation intubated, ventilated, at bedside Subjective hx not possible: pt non-verbal, pt critical Exam/Review of Systems Vital Signs Vitals Vital Signs Date Time Temp Pulse Resp B/P Pulse Ox O2 Delivery O2 Flow Rate FiO2 09/27/16 10:00 97 27 132/101 92 09/27/16 08:00 97.8 09/27/16 07:30 Mechanical Ventilator 09/27/16 05:00 100 Intake and Output 09/26/16 09/26/16 09/27/16 14:59 22:59 06:59 Intake Total 4659.165 ml 3411.01 ml 4043.90 ml Output Total 1200 ml 905 ml 160 ml Balance 3459.165 ml 2506.01 ml 3883.90 ml Exam Constitutional: non-verbal Neck: jvd Respiratory: diminished breath sounds Cardiovascular: irregular rhythm Gastrointestinal: soft Musculoskeletal: nl extremities to inspection Extremities: normal pulses Results Result Diagram: 09/27/16 0452 09/27/16 0452 Results 24 hrs Laboratory Tests Test 09/26/16 12:05 09/26/16 12:12 09/26/16 13:30 09/26/16 17:25 Lactic Acid Level 9.5 *H 11.9 *H Blood Gas Specimen Source Blood arterial Arterial Blood Date Drawn 09/26/2016 1:05:43 PM Arterial Blood pH (Temp corrected) 7.042 *L Arterial Blood pCO2 (Temp correct) 37.6 Arterial Blood pO2 (Temp corrected) 272.7 H Arterial Blood HCO3 10.0 L Arterial Blood Base Excess -20.0 L Arterial Blood Oxygen Saturation 99.4 H Dilshad Test N/A Arterial Blood Gas Puncture Site Right Brachial Arterial Blood Carboxyhemoglobin 0 Arterial Blood Methemoglobin 0.6 Blood Gas A-a O2 Differential 402.7 H Oxyhemoglobin Percent 98.8 Total Hemoglobin 17.3 Blood Gas Temperature 37.0 Blood Gas Respiration Rate 20.0 Blood Gas Actual Respiration Rate 38 Blood Gas Modality VENT - AC FiO2 100.0 Blood Gas Tidal Volume 550.0 Blood Gas High PEEP Setting 8.0 Blood Gas Critical Value Read Back G COURTNEY RN Blood Gas Notified Whom TM Blood Gas Notified Time 09/26/2016 1:18:26 PM Hemoglobin 15.7 Hematocrit 49.0 Test 09/26/16 19:40 09/26/16 23:47 09/27/16 01:28 09/27/16 04:52 Hemoglobin 15.9 13.7 L Hematocrit 52.3 H 43.6 Blood Gas Specimen Source Blood arterial Arterial Blood Date Drawn 09/26/2016 11:55:38 AM Arterial Blood pH (Temp corrected) 7.020 *L Arterial Blood pCO2 (Temp correct) 34.0 L Arterial Blood pO2 (Temp corrected) 224.4 H Arterial Blood HCO3 8.6 *L Arterial Blood Base Excess -21.6 L Arterial Blood Oxygen Saturation 99.4 H Dilshad Test ACCEPTAB Arterial Blood Gas Puncture Site Right Radial Arterial Blood Carboxyhemoglobin 0.5 Arterial Blood Methemoglobin 0.5 Blood Gas A-a O2 Differential 454.6 H Oxyhemoglobin Percent 98.4 Total Hemoglobin 15.4 Blood Gas Temperature 37.0 Blood Gas Respiration Rate 20.0 Blood Gas Actual Respiration Rate 32 Blood Gas Modality VENT - AC FiO2 100.0 Blood Gas Tidal Volume 550.0 Blood Gas Low PEEP Setting 8.0 Blood Gas Critical Value Read Back K CHAPIN RN Blood Gas Notified Whom UP Blood Gas Notified Time 09/27/2016 12:08:19 AM Lactic Acid Level 14.1 *H 15.2 *H White Blood Count 35.0 #H Red Blood Count 4.54 #L Mean Corpuscular Volume 96.0 Mean Corpuscular Hemoglobin 30.2 Mean Corpuscular Hemoglobin Concent 31.4 L Red Cell Distribution Width 15.2 H Platelet Count 105 #L Mean Platelet Volume 13.4 H Neutrophils % 87.9 H Lymphocytes % 5.9 L Monocytes % 4.8 Eosinophils % 0.0 Basophils % 0.1 Nucleated Red Blood Cells % 0.1 H Neutrophils # 30.8 H Lymphocytes # 2.1 Monocytes # 1.7 H Eosinophils # 0.0 Basophils # 0.1 Nucleated Red Blood Cells # 0.0 Sodium Level 128 #L Potassium Level 4.4 Chloride Level 89 #L Carbon Dioxide Level 12 L Anion Gap 31 H Blood Urea Nitrogen 32 H Creatinine 5.19 #H Glucose Level 164 Calcium Level 7.6 L Phosphorus Level 10.8 H Magnesium Level 1.9 Test 09/27/16 08:12 Random Vancomycin Level 16.8 Digoxin Level 0.8 L Medications Medications Current Medications Morphine Sulfate (morphine) 3 mg Q4H PRN IV PAIN; Start 08/31/16 at 01:00 Ondansetron HCl (Zofran Inj) 4 mg Q6H PRN IV NAUSEA AND/OR VOMITING Last administered on 09/18/16 12:37; Admin Dose 4 MG; Start 08/31/16 at 02:00 Morphine Sulfate 2 mg 2 mg Q4H PRN IV PAIN LEVEL 7-10 Last administered on 21:27; Admin Dose 2 MG; Start 08/31/16 at 02:00 Propofol (Diprivan) 100 ml @ 4.695 mls/ hr Q12H IV Last administered on 05:03; Admin Dose 23.475 MLS/HR; Start 09/07/16 at 13:30 IV Flush (NS 10 ml) 10 ml PRN PRN IV IV PROTOCOL; Start 09/08/16 at 17:00 Potassium Chloride (Potassium Chloride Pwd/Soln) 20 meq BID NGT Last administered on 09/25/16 22:06; Admin Dose 20 MEQ; Start 09/11/16 at 21:00; Status Future Hold Atorvastatin Calcium (Lipitor) 10 mg QHS NGT Last administered on 09/25/16 22: 06; Admin Dose 10 MG; Start 09/11/16 at 20:06; Status Future Hold Famotidine (Pepcid) 20 mg BID NGT Last administered on 09/25/16 22:06; Admin Dose 20 MG; Start 09/11/16 at 20:06; Status Future Hold Ferrous Sulfate (Feosol Liquid Cup) 300 mg DAILY NGT Last administered on 08:19; Admin Dose 300 MG; Start 09/12/16 at 09:00; Status Future Hold Folic Acid (Folic Acid) 1 mg DAILY NGT Last administered on 09/25/16 08:19; Admin Dose 1 MG; Start 09/11/16 at 20:10; Status Future Hold Losartan Potassium (Cozaar) 50 mg BID NGT ; Start 09/11/16 at 20:10; Status Future Hold Multivitamins Therapeutic (Theragran) 1 tab DAILY NGT Last administered on 08:55; Admin Dose 1 TAB; Start 09/11/16 at 20:11; Status Future Hold Thiamine HCl (Vitamin B1) 100 mg DAILY NGT Last administered on 09/25/16 08:19 ; Admin Dose 100 MG; Start 09/11/16 at 20:11; Status Future Hold Bisacodyl (Dulcolax Supp) 10 mg DAILY PRN [place] CONSTIPATION Last administered on 09/21/16 15:18; Admin Dose 10 MG; Start 09/14/16 at 09:00 Diltiazem HCl (Cardizem) 60 mg QID NGT Last administered on 09/25/16 22:06; Admin Dose 60 MG; Start 09/16/16 at 13:00 Apixaban (Eliquis) 2.5 mg BID PO Last administered on 09/24/16 08:25; Admin Dose 2.5 MG; Start 09/20/16 at 21:00; Status Future Hold Loperamide HCl (Imodium Cap) 2 mg QID PRN PO DIARRHEA Last administered on 16:00; Admin Dose 2 MG; Start 09/22/16 at 10:00 Lactulose (Enulose) 60 gm Q6 NGT Last administered on 09/25/16 17:01; Admin Dose 60 GM; Start 09/23/16 at 12:00; Status Future Hold Acetaminophen (Tylenol Liquid) 650 mg Q4H PRN NGT PAIN AND OR ELEVATED TEMP Last administered on 09/25/16 09:57; Admin Dose 650 MG; Start 09/24/16 at 08:00 Furosemide 40 mg 40 mg DAILY IV Last administered on 09/25/16 08:19; Admin Dose 40 MG; Start 09/24/16 at 10:30 Pantoprazole 80 mg/Sodium Chloride 100 ml @ 10 mls/hr Q10H IV Last administered on 09/27/16 08:54; Admin Dose 10 MLS/HR; Start 09/26/16 at 00:00 Vasopressin 60 unit/Dextrose 60 ml @ 0 mls/hr TITRATE IV Last administered on 23:35; Admin Dose 2.4 MLS/HR; Start 09/26/16 at 09:00 Cefepime HCl 50 ml @ 100 mls/hr Q24H IVPB ; Start 09/27/16 at 10:00 Levofloxacin/ Dextrose 150 ml @ 100 mls/hr Q48H IVPB Last administered on 12:29; Admin Dose 100 MLS/HR; Start 09/26/16 at 13:00 Octreotide Acetate 500 mcg/ Sodium Chloride 50 ml @ 2.5 mls/hr Q20H IV Last administered on 09/27/16 08:19; Admin Dose 2.5 MLS/HR; Start 09/26/16 at 13:30 Sodium Bicarbonate 150 meq/Dextrose 1,150 ml @ 100 mls/hr [id number] IV Last administered on 09/27/16 02:17; Admin Dose 100 MLS/HR; Start 09/26/16 at 15:00 Epinephrine/ Dextrose (EPINEPHrine/D5W) 250 ml @ 3.75 mls/hr TITRATE IV ; Start 09/26/16 at 18:30 Al Hydrox/Mg Hydrox/ Simethicone 30 ml 30 ml Q2H NGT Last administered on 08:49; Admin Dose 30 ML; Start 09/26/16 at 22:00 Midazolam HCl 50 ml @ 1 mls/hr TITRATE IV Last administered on 09/27/16 08:55; Admin Dose 6 MLS/HR; Start 09/27/16 at 01:00 Sodium Chloride 1,000 ml @ 75 mls/hr [id number] IV Last administered on 09/27/16 06:33; Admin Dose 75 MLS/HR; Start 09/27/16 at 06:00 Phenylephrine HCl 160 mg/Dextrose 500 ml @ 18.75 mls/ hr TITRATE IV ; Start 09/27/16 at 06:00 Norepinephrine/ Dextrose (Levophed/D5W) 250 ml @ 0.46 mls/hr TITRATE IV ; Start 09/27/16 at 06:00 Hydrocortisone 100 mg 100 mg Q8 IV Last administered on 09/27/16t 09:12; Admin Dose 100 MG; Start 09/27/16 at 08:30 Vancomycin HCl (Vancocin) 250 ml @ 125 mls/hr 14 IVPB ; Start 09/27/16 at 14:00 ; Stop 09/27/16 at 20:00 DIYA FISCHER MD Sep 27, 2016 10:19
--- NOTE | 2016-09-27 10:28 | RADRPT ---
PROCEDURE: XR Chest AP portable CLINICAL INDICATION: Pneumonia, CHF TECHNIQUE: An AP portable radiograph of the chest was submitted. COMPARISON: 08/31/2016 FINDINGS: Support Hardware: Since the previous study, the patient has been intubated with the tube tip satisfa ctorily positioned at the level of T4. An NG tube is in satisfactorily placed. A right upper extre mity PICC catheter has been placed with the tip lying at the atrial caval junction. Cardiovascular: The heart is mildly enlarged and the pulmonary vasculature appears mildly congested. Aorta appears atherosclerotic. Lung Vasquez: Subsegmental atelectasis has developed at the lung bases. Pleural Spaces: Small pleural fluid accumulations cannot be excluded as the costophrenic angles are obscured. No pneumothorax is evident. Osseous Structures: The osseous structures appear intact. Soft Tissues: The soft tissues appear generous. IMPRESSION: 1. Interval satisfactory intubation, placement of an NG tube placement of a right upper extremity P ICC catheter. 2. The heart size is increased and is mildly enlarged with the pulmonary vasculature no appearing m ildly congested. 3. Development of subsegmental atelectasis at both lung bases and possible small pleural fluid accu mulations. Physician Mayur Date Time Electronically viewed and signed by Physician Mayur on 09/27/2016 10:27 /
--- NOTE | 2016-09-27 11:39 | PN ---
Date/Time of Note Date/Time of Note DATE: 09/27/16 TIME: 11:32 Assessment/Plan VTE Prophylaxis VTE Prophylaxis Intervention: contraindicated VTE Contraindication Reason: bleeding Lines/Catheters IV Catheter Type (from Nrsg): PICC Line Central line still needed: Yes Urinary Cath still in place: Yes Reason Cath still needed: urinary retention Assessment/Plan Chief Complaint/Hosp Course A/P: 56-year-old morbidly obese male with BMI of 54, with history of hypertension, decompensated alcoholic cirrhosis, anemia who was transferred from [facility] after he presented there with chest pain, now res failure, intubated, now septic shock. 1. Acute respiratory failure - now in septic shock, sec to possible res source. Acute on chronic. Hypoxic and hypercapnic. Pt intubated on 09/07/2016 because of worsening respiratory distress. Failed CPAP trial last few days. Now on 3 pressor support. - Ventilator management as per Pulmonary - although 100% FiO2 settings. - IVF's with bicarb, trend LA (still very elevated), abx 2. Essential hypertension. Status post pressors for episode of hypotension. On pressors. - monitor 3. Chronic obstructive pulmonary disease. The patient on inhaled bronchodilators. - f/u Pulmonology rec's, Duoneb's 4. Chest pain. Acute coronary syndrome ruled out. Troponins negative. - holding CV meds for now given sepsis 5. Atrial fibrillation - tachy - holding Dilt and Dig, f/u CV rec's - holding Eliquis for stroke prophylaxis given hematuria 6. Alcoholic liver disease. LFT's nL, but ammonia still elevated but trending down slightly (94 -> 88 -> 68 ->48) - monitor - continue lactulose, trend NH4 7. Thrombocytopenia. Most probably from acute alcoholic liver disease. Plt now stable - monitor for any bleeding. 8. Alcohol abuse. The patient's last drink was on the day prior to hospitalization. The patient will be maintained on daily thiamine. Status post Librium taper. 10. Possible aspiration with aspiration pneumonia - elevated WBC, less fever in last 24 hrs, on abx x3, septic shock (see # 1) -f/u UA, culture, blood cx's. - Cefepime and Vanco, Levaquin 11. Deep venous thrombosis prophylaxis - CI (hematuria, UGI bleed) 12. Gastrointestinal prophylaxis. H2 receptor blockers. 13. hematuria - appreciate rec's, monitor, if worsens - consider CT A/P to further evaluate. 14. ARF - worsening Cr levels (more elevated), low UO - f/u renal rec's, not planning HD at this point. Plan. Continue ICU monitoring. Ventilator weaning as per Pulmonary. Critical care time: 40 minutes. Overall very poor prognosis now, family appears to understand the severity of pt 's condition. Pt DNR/DNI now. They still want current medical tx to continue, although comfort measures has been brought to them as well for consideration at this point. On 09/18/2016, doctor had a long conversation with the patient's mother with the help of a kiln labourer regarding the patient's prognosis. The patient's mother was explained about the need for a tracheostomy if unable to wean the patient off the ventilator. Later, the patient's ex- was present in the patient's room. Talked to the patient's ex- in the presence of the patient' s mother after getting consent to talk to the patient's ex- from the mother. Patient's ex- was informed about the necessity for a tracheostomy and PEG tube placement if unable to wean the patient off the ventilator. The patient's mom and ex- verbalized understanding, and they agreed for proceeding with a tracheostomy and PEG tube placement if necessary. Will follow up with physician practice consultant teams on this. However, given worsening septic shock, fevers , lactic acidosis, poor prognosis. Problems: Subjective 24 Hr Interval Summary Free Text/Dictation Pt still on 3 pressor support, severe shock and acidosis, had EGD with bleeding ulcer sclerosed yesterday. Pt DNR now. Exam/Review of Systems Vital Signs Vitals Vital Signs Date Time Temp Pulse Resp B/P Pulse Ox O2 Delivery O2 Flow Rate FiO2 09/27/16 10:00 97 27 132/101 92 09/27/16 08:00 97.8 09/27/16 08:00 100 09/27/16 07:30 Mechanical Ventilator Intake and Output 09/26/16 09/26/16 09/27/16 15:00 23:00 07:00 Intake Total 4746.84 ml 3460.61 ml 3573.15 ml Output Total 1200 ml 905 ml 160 ml Balance 3546.84 ml 2555.61 ml 3413.15 ml Exam GENERAL:obese male patient lying in orally intubated. HEENT: Head normocephalic and atraumatic. Eyes: Anicteric sclerae. Conjunctivae clear. ENT: Nasal septum is midline. NGT in place. Orally intubated. NECK: Short with increased neck circumference. RESPIRATORY: some bilaterally diminished breath sounds. CARDIAC: Irregularly irregular rhythm. S1 and S2 heard. ABDOMEN: Obese. Bowel sounds hypoactive. EXTREMITIES: No cyanosis, no clubbing. Bilateral lower extremity 2+ pitting edema. NEUROLOGIC: The patient is sedated. Results Result Diagram: 09/27/16 0452 09/27/16 0452 Results 24 hrs Laboratory Tests Test 09/26/16 12:05 09/26/16 12:12 09/26/16 13:30 09/26/16 17:25 Lactic Acid Level 9.5 *H 11.9 *H Blood Gas Specimen Source Blood arterial Arterial Blood Date Drawn 09/26/2016 1:05:43 PM Arterial Blood pH (Temp corrected) 7.042 *L Arterial Blood pCO2 (Temp correct) 37.6 Arterial Blood pO2 (Temp corrected) 272.7 H Arterial Blood HCO3 10.0 L Arterial Blood Base Excess -20.0 L Arterial Blood Oxygen Saturation 99.4 H Dilshad Test N/A Arterial Blood Gas Puncture Site Right Brachial Arterial Blood Carboxyhemoglobin 0 Arterial Blood Methemoglobin 0.6 Blood Gas A-a O2 Differential 402.7 H Oxyhemoglobin Percent 98.8 Total Hemoglobin 17.3 Blood Gas Temperature 37.0 Blood Gas Respiration Rate 20.0 Blood Gas Actual Respiration Rate 38 Blood Gas Modality VENT - AC FiO2 100.0 Blood Gas Tidal Volume 550.0 Blood Gas High PEEP Setting 8.0 Blood Gas Critical Value Read Back Erin VALDEZ RN Blood Gas Notified Whom TM Blood Gas Notified Time 09/26/2016 1:18:26 PM Hemoglobin 15.7 Hematocrit 49.0 Test 09/26/16 19:40 09/26/16 23:47 09/27/16 01:28 09/27/16 04:52 Hemoglobin 15.9 13.7 L Hematocrit 52.3 H 43.6 Blood Gas Specimen Source Blood arterial Arterial Blood Date Drawn 09/26/2016 11:55:38 AM Arterial Blood pH (Temp corrected) 7.020 *L Arterial Blood pCO2 (Temp correct) 34.0 L Arterial Blood pO2 (Temp corrected) 224.4 H Arterial Blood HCO3 8.6 *L Arterial Blood Base Excess -21.6 L Arterial Blood Oxygen Saturation 99.4 H Dilshad Test ACCEPTAB Arterial Blood Gas Puncture Site Right Radial Arterial Blood Carboxyhemoglobin 0.5 Arterial Blood Methemoglobin 0.5 Blood Gas A-a O2 Differential 454.6 H Oxyhemoglobin Percent 98.4 Total Hemoglobin 15.4 Blood Gas Temperature 37.0 Blood Gas Respiration Rate 20.0 Blood Gas Actual Respiration Rate 32 Blood Gas Modality VENT - AC FiO2 100.0 Blood Gas Tidal Volume 550.0 Blood Gas Low PEEP Setting 8.0 Blood Gas Critical Value Read Back K IHFENG RN Blood Gas Notified Whom UP Blood Gas Notified Time 09/27/2016 12:08:19 AM Lactic Acid Level 14.1 *H 15.2 *H White Blood Count 35.0 #H Red Blood Count 4.54 #L Mean Corpuscular Volume 96.0 Mean Corpuscular Hemoglobin 30.2 Mean Corpuscular Hemoglobin Concent 31.4 L Red Cell Distribution Width 15.2 H Platelet Count 105 #L Mean Platelet Volume 13.4 H Neutrophils % 87.9 H Lymphocytes % 5.9 L Monocytes % 4.8 Eosinophils % 0.0 Basophils % 0.1 Nucleated Red Blood Cells % 0.1 H Neutrophils # 30.8 H Lymphocytes # 2.1 Monocytes # 1.7 H Eosinophils # 0.0 Basophils # 0.1 Nucleated Red Blood Cells # 0.0 Sodium Level 128 #L Potassium Level 4.4 Chloride Level 89 #L Carbon Dioxide Level 12 L Anion Gap 31 H Blood Urea Nitrogen 32 H Creatinine 5.19 #H Glucose Level 164 Calcium Level 7.6 L Phosphorus Level 10.8 H Magnesium Level 1.9 Test 09/27/16 08:12 Random Vancomycin Level 16.8 Digoxin Level 0.8 L Medications Medications Current Medications Morphine Sulfate (morphine) 3 mg Q4H PRN IV PAIN; Start 08/31/16 at 01:00 Ondansetron HCl (Zofran Inj) 4 mg Q6H PRN IV NAUSEA AND/OR VOMITING Last administered on 09/18/16 12:37; Admin Dose 4 MG; Start 08/31/16 at 02:00 Morphine Sulfate 2 mg 2 mg Q4H PRN IV PAIN LEVEL 7-10 Last administered on 21:27; Admin Dose 2 MG; Start 08/31/16 at 02:00 Propofol (Diprivan) 100 ml @ 4.695 mls/ hr Q12H IV Last administered on 05:03; Admin Dose 23.475 MLS/HR; Start 09/07/16 at 13:30 IV Flush (NS 10 ml) 10 ml PRN PRN IV IV PROTOCOL; Start 09/08/16 at 17:00 Potassium Chloride (Potassium Chloride Pwd/Soln) 20 meq BID NGT Last administered on 09/25/16 22:06; Admin Dose 20 MEQ; Start 09/11/16 at 21:00; Status Future Hold Atorvastatin Calcium (Lipitor) 10 mg QHS NGT Last administered on 09/25/16 22: 06; Admin Dose 10 MG; Start 09/11/16 at 20:06; Status Future Hold Famotidine (Pepcid) 20 mg BID NGT Last administered on 09/25/16 22:06; Admin Dose 20 MG; Start 09/11/16 at 20:06; Status Future Hold Ferrous Sulfate (Feosol Liquid Cup) 300 mg DAILY NGT Last administered on 08:19; Admin Dose 300 MG; Start 09/12/16 at 09:00; Status Future Hold Folic Acid (Folic Acid) 1 mg DAILY NGT Last administered on 09/25/16 08:19; Admin Dose 1 MG; Start 09/11/16 at 20:10; Status Future Hold Losartan Potassium (Cozaar) 50 mg BID NGT ; Start 09/11/16 at 20:10; Status Future Hold Multivitamins Therapeutic (Theragran) 1 tab DAILY NGT Last administered on 08:55; Admin Dose 1 TAB; Start 09/11/16 at 20:11; Status Future Hold Thiamine HCl (Vitamin B1) 100 mg DAILY NGT Last administered on 09/25/16 08:19 ; Admin Dose 100 MG; Start 09/11/16 at 20:11; Status Future Hold Bisacodyl (Dulcolax Supp) 10 mg DAILY PRN [place] CONSTIPATION Last administered on 09/21/16 15:18; Admin Dose 10 MG; Start 09/14/16 at 09:00 Diltiazem HCl (Cardizem) 60 mg QID NGT Last administered on 09/25/16 22:06; Admin Dose 60 MG; Start 09/16/16 at 13:00 Apixaban (Eliquis) 2.5 mg BID PO Last administered on 09/24/16 08:25; Admin Dose 2.5 MG; Start 09/20/16 at 21:00; Status Future Hold Loperamide HCl (Imodium Cap) 2 mg QID PRN PO DIARRHEA Last administered on 16:00; Admin Dose 2 MG; Start 09/22/16 at 10:00 Lactulose (Enulose) 60 gm Q6 NGT Last administered on 09/25/16 17:01; Admin Dose 60 GM; Start 09/23/16 at 12:00; Status Future Hold Acetaminophen (Tylenol Liquid) 650 mg Q4H PRN NGT PAIN AND OR ELEVATED TEMP Last administered on 09/25/16 09:57; Admin Dose 650 MG; Start 09/24/16 at 08:00 Furosemide 40 mg 40 mg DAILY IV Last administered on 09/25/16 08:19; Admin Dose 40 MG; Start 09/24/16 at 10:30 Pantoprazole 80 mg/Sodium Chloride 100 ml @ 10 mls/hr Q10H IV Last administered on 09/27/16 08:54; Admin Dose 10 MLS/HR; Start 09/26/16 at 00:00 Vasopressin 60 unit/Dextrose 60 ml @ 0 mls/hr TITRATE IV Last administered on 23:35; Admin Dose 2.4 MLS/HR; Start 09/26/16 at 09:00 Cefepime HCl 50 ml @ 100 mls/hr Q24H IVPB Last administered on 09/27/16 10:26 ; Admin Dose 100 MLS/HR; Start 09/27/16 at 10:00 Levofloxacin/ Dextrose 150 ml @ 100 mls/hr Q48H IVPB Last administered on 12:29; Admin Dose 100 MLS/HR; Start 09/26/16 at 13:00 Octreotide Acetate 500 mcg/ Sodium Chloride 50 ml @ 2.5 mls/hr Q20H IV Last administered on 09/27/16 08:19; Admin Dose 2.5 MLS/HR; Start 09/26/16 at 13:30 Epinephrine/ Dextrose (EPINEPHrine/D5W) 250 ml @ 3.75 mls/hr TITRATE IV ; Start 09/26/16 at 18:30 Al Hydrox/Mg Hydrox/ Simethicone 30 ml 30 ml Q2H NGT Last administered on 10:29; Admin Dose 30 ML; Start 09/26/16 at 22:00 Midazolam HCl 50 ml @ 1 mls/hr TITRATE IV Last administered on 09/27/16 08:55; Admin Dose 6 MLS/HR; Start 09/27/16 at 01:00 Phenylephrine HCl 160 mg/Dextrose 500 ml @ 18.75 mls/ hr TITRATE IV ; Start 09/27/16 at 06:00 Norepinephrine/ Dextrose (Levophed/D5W) 250 ml @ 0.46 mls/hr TITRATE IV Last administered on 09/27/16 11:04; Admin Dose 14.06 MLS/HR; Start 09/27/16 at 06:00 Hydrocortisone 100 mg 100 mg Q8 IV Last administered on 09/27/16 09:12; Admin Dose 100 MG; Start 09/27/16 at 08:30 Vancomycin HCl (Vancocin) 250 ml @ 125 mls/hr 14 IVPB ; Start 09/27/16 at 14:00 ; Stop 09/27/16 at 20:00 SONI SUTTON Sep 27, 2016 11:39
[2016-09-27 12:15] LABS: HEMATOCRIT 40.8 % (42.0-52.0); HEMOGLOBIN 12.6 g/dl (14.0-18.0)
--- NOTE | 2016-09-27 12:23 | CONS ---
Date/Time of Note Date/Time of Note DATE: 09/27/16 TIME: 12:21 Assessment/Plan Assessment/Plan Additional Assessment/Plan 1. Acute respiratory failure - now in septic shock, sec to possible res source. Acute on chronic. Hypoxic and hypercapnic. 2. Essential hypertension. 3. Chronic obstructive pulmonary disease. 4. Chest pain. 5. Atrial fibrillation 6. Alcoholic liver disease 7. Thrombocytopenia. 8. Alcohol abuse. 10. Possible aspiration with aspiration pneumonia 11. Acute on chronic CHF exacerbation. 12. Fluid, electrolytes and nutrition. 13. ROSSANA in the setting of SHOCK, ATN Pt remains unstable at this time Unable to perform HD due to hemodynamic instability Pt is DNR, discussed with [facility] Prognosis Consultation Date/Type/Reason Admit Date/Time Aug 30, 2016 at 23:34 Type of Consultation: Renal Referring Provider: ERIK MORTON 24 HR Interval Summary Free Text/Dictation Still remains on 3 pressors, Anuric, DNR Subjective hx not possible: pt critical status Constitutional: requiring O2 Exam/Review of Systems Vital Signs Vitals Vital Signs Date Time Temp Pulse Resp B/P Pulse Ox O2 Delivery O2 Flow Rate FiO2 09/27/16 10:00 97 27 132/101 92 09/27/16 08:00 97.8 09/27/16 08:00 100 09/27/16 07:30 Mechanical Ventilator Intake and Output 09/26/16 09/26/16 09/27/16 15:00 23:00 07:00 Intake Total 4746.84 ml 3460.61 ml 3723.30 ml Output Total 1200 ml 905 ml 160 ml Balance 3546.84 ml 2555.61 ml 3563.30 ml Exam ENMT: intubated, mucosa pink and moist Respiratory: crackles/rales, diminished breath sounds Cardiovascular: edema Gastrointestinal: ascites, distended Extremities: pitting pedal edema Neurological: other (Sedated) Skin: No diaphoresis Results Result Diagram: 09/27/16 0452 09/27/16 0452 Results 24 hrs Laboratory Tests Test 09/26/16 13:30 09/26/16 17:25 09/26/16 19:40 09/26/16 23:47 Hemoglobin 15.7 15.9 Hematocrit 49.0 52.3 H Lactic Acid Level 11.9 *H Blood Gas Specimen Source Blood arterial Arterial Blood Date Drawn 09/26/2016 11:55:38 AM Arterial Blood pH (Temp corrected) 7.020 *L Arterial Blood pCO2 (Temp correct) 34.0 L Arterial Blood pO2 (Temp corrected) 224.4 H Arterial Blood HCO3 8.6 *L Arterial Blood Base Excess -21.6 L Arterial Blood Oxygen Saturation 99.4 H Dilshad Test ACCEPTAB Arterial Blood Gas Puncture Site Right Radial Arterial Blood Carboxyhemoglobin 0.5 Arterial Blood Methemoglobin 0.5 Blood Gas A-a O2 Differential 454.6 H Oxyhemoglobin Percent 98.4 Total Hemoglobin 15.4 Blood Gas Temperature 37.0 Blood Gas Respiration Rate 20.0 Blood Gas Actual Respiration Rate 32 Blood Gas Modality VENT - AC FiO2 100.0 Blood Gas Tidal Volume 550.0 Blood Gas Low PEEP Setting 8.0 Blood Gas Critical Value Read Back K CHAPIN RN Blood Gas Notified Whom UP Blood Gas Notified Time 09/27/2016 12:08:19 AM Test 09/27/16 01:28 09/27/16 04:52 09/27/16 08:12 Lactic Acid Level 14.1 *H 15.2 *H White Blood Count 35.0 #H Red Blood Count 4.54 #L Hemoglobin 13.7 L Hematocrit 43.6 Mean Corpuscular Volume 96.0 Mean Corpuscular Hemoglobin 30.2 Mean Corpuscular Hemoglobin Concent 31.4 L Red Cell Distribution Width 15.2 H Platelet Count 105 #L Mean Platelet Volume 13.4 H Neutrophils % 87.9 H Lymphocytes % 5.9 L Monocytes % 4.8 Eosinophils % 0.0 Basophils % 0.1 Nucleated Red Blood Cells % 0.1 H Neutrophils # 30.8 H Lymphocytes # 2.1 Monocytes # 1.7 H Eosinophils # 0.0 Basophils # 0.1 Nucleated Red Blood Cells # 0.0 Sodium Level 128 #L Potassium Level 4.4 Chloride Level 89 #L Carbon Dioxide Level 12 L Anion Gap 31 H Blood Urea Nitrogen 32 H Creatinine 5.19 #H Glucose Level 164 Calcium Level 7.6 L Phosphorus Level 10.8 H Magnesium Level 1.9 Random Vancomycin Level 16.8 Digoxin Level 0.8 L Medications Medications Current Medications Morphine Sulfate (morphine) 3 mg Q4H PRN IV PAIN; Start 08/31/16 at 01:00 Ondansetron HCl (Zofran Inj) 4 mg Q6H PRN IV NAUSEA AND/OR VOMITING Last administered on 09/18/16 12:37; Admin Dose 4 MG; Start 08/31/16 at 02:00 Morphine Sulfate 2 mg 2 mg Q4H PRN IV PAIN LEVEL 7-10 Last administered on 21:27; Admin Dose 2 MG; Start 08/31/16 at 02:00 Propofol (Diprivan) 100 ml @ 4.695 mls/ hr Q12H IV Last administered on 05:03; Admin Dose 23.475 MLS/HR; Start 09/07/16 at 13:30 IV Flush (NS 10 ml) 10 ml PRN PRN IV IV PROTOCOL; Start 09/08/16 at 17:00 Potassium Chloride (Potassium Chloride Pwd/Soln) 20 meq BID NGT Last administered on 09/25/16 22:06; Admin Dose 20 MEQ; Start 09/11/16 at 21:00; Status Future Hold Atorvastatin Calcium (Lipitor) 10 mg QHS NGT Last administered on 09/25/16 22: 06; Admin Dose 10 MG; Start 09/11/16 at 20:06; Status Future Hold Famotidine (Pepcid) 20 mg BID NGT Last administered on 09/25/16 22:06; Admin Dose 20 MG; Start 09/11/16 at 20:06; Status Future Hold Ferrous Sulfate (Feosol Liquid Cup) 300 mg DAILY NGT Last administered on 08:19; Admin Dose 300 MG; Start 09/12/16 at 09:00; Status Future Hold Folic Acid (Folic Acid) 1 mg DAILY NGT Last administered on 09/25/16 08:19; Admin Dose 1 MG; Start 09/11/16 at 20:10; Status Future Hold Losartan Potassium (Cozaar) 50 mg BID NGT ; Start 09/11/16 at 20:10; Status Future Hold Multivitamins Therapeutic (Theragran) 1 tab DAILY NGT Last administered on 08:55; Admin Dose 1 TAB; Start 09/11/16 at 20:11; Status Future Hold Thiamine HCl (Vitamin B1) 100 mg DAILY NGT Last administered on 09/25/16 08:19 ; Admin Dose 100 MG; Start 09/11/16 at 20:11; Status Future Hold Bisacodyl (Dulcolax Supp) 10 mg DAILY PRN [place] CONSTIPATION Last administered on 09/21/16 15:18; Admin Dose 10 MG; Start 09/14/16 at 09:00 Diltiazem HCl (Cardizem) 60 mg QID NGT Last administered on 09/25/16 22:06; Admin Dose 60 MG; Start 09/16/16 at 13:00 Apixaban (Eliquis) 2.5 mg BID PO Last administered on 09/24/16 08:25; Admin Dose 2.5 MG; Start 09/20/16 at 21:00; Status Future Hold Loperamide HCl (Imodium Cap) 2 mg QID PRN PO DIARRHEA Last administered on 16:00; Admin Dose 2 MG; Start 09/22/16 at 10:00 Lactulose (Enulose) 60 gm Q6 NGT Last administered on 09/25/16 17:01; Admin Dose 60 GM; Start 09/23/16 at 12:00; Status Future Hold Acetaminophen (Tylenol Liquid) 650 mg Q4H PRN NGT PAIN AND OR ELEVATED TEMP Last administered on 09/25/16 09:57; Admin Dose 650 MG; Start 09/24/16 at 08:00 Furosemide 40 mg 40 mg DAILY IV Last administered on 09/25/16 08:19; Admin Dose 40 MG; Start 09/24/16 at 10:30 Pantoprazole 80 mg/Sodium Chloride 100 ml @ 10 mls/hr Q10H IV Last administered on 09/27/16 08:54; Admin Dose 10 MLS/HR; Start 09/26/16 at 00:00 Vasopressin 60 unit/Dextrose 60 ml @ 0 mls/hr TITRATE IV Last administered on 23:35; Admin Dose 2.4 MLS/HR; Start 09/26/16 at 09:00 Cefepime HCl 50 ml @ 100 mls/hr Q24H IVPB Last administered on 09/27/16 10:26 ; Admin Dose 100 MLS/HR; Start 09/27/16 at 10:00 Levofloxacin/ Dextrose 150 ml @ 100 mls/hr Q48H IVPB Last administered on 12:29; Admin Dose 100 MLS/HR; Start 09/26/16 at 13:00 Octreotide Acetate 500 mcg/ Sodium Chloride 50 ml @ 2.5 mls/hr Q20H IV Last administered on 09/27/16 08:19; Admin Dose 2.5 MLS/HR; Start 09/26/16 at 13:30 Epinephrine/ Dextrose (EPINEPHrine/D5W) 250 ml @ 3.75 mls/hr TITRATE IV ; Start 09/26/16 at 18:30 Al Hydrox/Mg Hydrox/ Simethicone 30 ml 30 ml Q2H NGT Last administered on 10:29; Admin Dose 30 ML; Start 09/26/16 at 22:00 Midazolam HCl 50 ml @ 1 mls/hr TITRATE IV Last administered on 09/27/16 08:55; Admin Dose 6 MLS/HR; Start 09/27/16 at 01:00 Phenylephrine HCl 160 mg/Dextrose 500 ml @ 18.75 mls/ hr TITRATE IV ; Start 09/27/16 at 06:00 Norepinephrine/ Dextrose (Levophed/D5W) 250 ml @ 0.46 mls/hr TITRATE IV Last administered on 09/27/16 11:04; Admin Dose 14.06 MLS/HR; Start 09/27/16 at 06:00 Hydrocortisone 100 mg 100 mg Q8 IV Last administered on 09/27/16 09:12; Admin Dose 100 MG; Start 09/27/16 at 08:30 Vancomycin HCl 250 ml @ 125 mls/hr 14 IVPB ; Start 09/27/16 at 14:00; Stop at 20:00 Sodium Bicarbonate/ Sodium Chloride (Na Bicarb/NS) 1,000 ml @ 75 mls/hr [id number] IV ; Start 09/27/16 at 13:00 Procedures Procedures PROCEDURE: XR Chest AP portable CLINICAL INDICATION: Pneumonia, CHF TECHNIQUE: An AP portable radiograph of the chest was submitted. COMPARISON: 08/31/2016 FINDINGS: Support Hardware: Since the previous study, the patient has been intubated with the tube tip satisfactorily positioned at the level of T4. An NG tube is in satisfactorily placed. A right upper extremity PICC catheter has been placed with the tip lying at the atrial caval junction. Cardiovascular: The heart is mildly enlarged and the pulmonary vasculature appears mildly congested. Aorta appears atherosclerotic. Lung Vasquez: Subsegmental atelectasis has developed at the lung bases. Pleural Spaces: Small pleural fluid accumulations cannot be excluded as the costophrenic angles are obscured. No pneumothorax is evident. Osseous Structures: The osseous structures appear intact. Soft Tissues: The soft tissues appear generous. IMPRESSION: 1. Interval satisfactory intubation, placement of an NG tube placement of a right upper extremity PICC catheter. 2. The heart size is increased and is mildly enlarged with the pulmonary vasculature no appearing mildly congested. 3. Development of subsegmental atelectasis at both lung bases and possible small pleural fluid accumulations. Physician Mayur Date Time Electronically viewed and signed by Physician Mayur on 09/27/2016 10:27 OLENA SINCLAIR MD Sep 27, 2016 12:23
[2016-09-27] MEDS ORDERED: SODIUM BICARBONATE (IV ADD) 150 MEQ in SOD CHLORIDE 0.9% 850 ML IV SCH ×3 (13:00→15:00)
[2016-09-27] MEDS: PROPOFOL 100 ML IV SCH (13:30)
[2016-09-27] MEDS ORDERED: VANCOMYCIN 1 GM in NS 250 ML IVPB SCH (14:00)
--- NOTE | 2016-09-27 14:19 | PN ---
Date/Time of Note Date/Time of Note DATE: 09/27/16 TIME: 14:08 Assessment/Plan VTE Prophylaxis VTE Prophylaxis Intervention: contraindicated VTE Contraindication Reason: bleeding Lines/Catheters IV Catheter Type (from Nrsg): PICC Line Central line still needed: Yes Urinary Cath still in place: Yes (For IV fluids) Reason Cath still needed: terminal illness/intractable pain Assessment/Plan Chief Complaint/Hosp Course Gross hematuria most likely from the kidneys as the bladder irrigation cleared the urine and there were no clots or blood clots in the bladder. Patient is in renal failure and making very little urine and the urine is bloody Problems: Assessment/Plan 1. Acute respiratory failure - now in septic shock, sec to possible res source. Acute on chronic. Hypoxic and hypercapnic. Pt intubated on 09/07/2016 because of worsening respiratory distress. Failed CPAP trial last few days. Now on 3 pressor support. - Ventilator management as per Pulmonary - although 100% FiO2 settings. - IVF's with bicarb, trend LA (still very elevated), abx 2. Essential hypertension. Status post pressors for episode of hypotension. On pressors. - monitor 3. Chronic obstructive pulmonary disease. The patient on inhaled bronchodilators. - f/u Pulmonology rec's, Duoneb's 4. Chest pain. Acute coronary syndrome ruled out. Troponins negative. - holding CV meds for now given sepsis 5. Atrial fibrillation - tachy - holding Dilt and Dig, f/u CV rec's - holding Eliquis for stroke prophylaxis given hematuria 6. Alcoholic liver disease. LFT's nL, but ammonia still elevated but trending down slightly (94 -> 88 -> 68 ->48) - monitor - continue lactulose, trend NH4 7. Thrombocytopenia. Most probably from acute alcoholic liver disease. Plt now stable - monitor for any bleeding. 8. Alcohol abuse. The patient's last drink was on the day prior to hospitalization. The patient will be maintained on daily thiamine. Status post Librium taper. 10. Possible aspiration with aspiration pneumonia - elevated WBC, less fever in last 24 hrs, on abx x3, septic shock (see # 1) -f/u UA, culture, blood cx's. - Cefepime and Vanco, Levaquin 11. Deep venous thrombosis prophylaxis - CI (hematuria, UGI bleed) 12. Gastrointestinal prophylaxis. H2 receptor blockers. 13. hematuria -if it gets worse and his condition improves then we could do a CT scan of the abdomen. 14. ARF - worsening Cr levels (more elevated), low UO - f/u renal rec's, not planning HD at this point. Subjective 24 Hr Interval Summary Subjective hx not possible: pt non-verbal, other (Patient is on respirator) Eyes: no complaints ENT: no complaints Respiratory: other (Patient on a respirator) Genitourinary: hematuria, other (Patient has an indwelling Palumbo catheter and making very little urine that this bloody) Musculoskeletal: no complaints Skin: no complaints Neurologic: other (Patient is sedated) Exam/Review of Systems Vital Signs Vitals Vital Signs Date Time Temp Pulse Resp B/P Pulse Ox O2 Delivery O2 Flow Rate FiO2 09/27/16 12:00 107 09/27/16 10:00 27 132/101 92 09/27/16 08:00 97.8 09/27/16 08:00 100 09/27/16 07:30 Mechanical Ventilator Intake and Output 09/26/16 09/26/16 09/27/16 15:00 23:00 07:00 Intake Total 4746.84 ml 3460.61 ml 3723.30 ml Output Total 1200 ml 905 ml 160 ml Balance 3546.84 ml 2555.61 ml 3563.30 ml Exam Constitutional: non-verbal, other (Patient is on respirator) Psych: no complaints Head: normocephalic Eyes: nl conjunctiva ENMT: nl external ears & nose Neck: supple Respiratory: other (Patient is on a respirator) Cardiovascular: other (Patient on 3 vasopressors) Gastrointestinal: distended Genitourinary - Male: other (Patient has an indwelling Palumbo catheter and bloody urine in the tubing) Skin: nl turgor Results Result Diagram: 09/27/16 1200 09/27/16 0452 Results 24 hrs Laboratory Tests Test 09/26/16 17:25 09/26/16 19:40 09/26/16 23:47 09/27/16 01:28 Lactic Acid Level 11.9 *H 14.1 *H Hemoglobin 15.9 Hematocrit 52.3 H Blood Gas Specimen Source Blood arterial Arterial Blood Date Drawn 09/26/2016 11:55:38 AM Arterial Blood pH (Temp corrected) 7.020 *L Arterial Blood pCO2 (Temp correct) 34.0 L Arterial Blood pO2 (Temp corrected) 224.4 H Arterial Blood HCO3 8.6 *L Arterial Blood Base Excess -21.6 L Arterial Blood Oxygen Saturation 99.4 H Dilshad Test ACCEPTAB Arterial Blood Gas Puncture Site Right Radial Arterial Blood Carboxyhemoglobin 0.5 Arterial Blood Methemoglobin 0.5 Blood Gas A-a O2 Differential 454.6 H Oxyhemoglobin Percent 98.4 Total Hemoglobin 15.4 Blood Gas Temperature 37.0 Blood Gas Respiration Rate 20.0 Blood Gas Actual Respiration Rate 32 Blood Gas Modality VENT - AC FiO2 100.0 Blood Gas Tidal Volume 550.0 Blood Gas Low PEEP Setting 8.0 Blood Gas Critical Value Read Back K IHRIG RN Blood Gas Notified Whom UP Blood Gas Notified Time 09/27/2016 12:08:19 AM Test 09/27/16 04:52 09/27/16 08:12 09/27/16 12:00 White Blood Count 35.0 #H Red Blood Count 4.54 #L Hemoglobin 13.7 L 12.6 L Hematocrit 43.6 40.8 L Mean Corpuscular Volume 96.0 Mean Corpuscular Hemoglobin 30.2 Mean Corpuscular Hemoglobin Concent 31.4 L Red Cell Distribution Width 15.2 H Platelet Count 105 #L Mean Platelet Volume 13.4 H Neutrophils % 87.9 H Lymphocytes % 5.9 L Monocytes % 4.8 Eosinophils % 0.0 Basophils % 0.1 Nucleated Red Blood Cells % 0.1 H Neutrophils # 30.8 H Lymphocytes # 2.1 Monocytes # 1.7 H Eosinophils # 0.0 Basophils # 0.1 Nucleated Red Blood Cells # 0.0 Sodium Level 128 #L Potassium Level 4.4 Chloride Level 89 #L Carbon Dioxide Level 12 L Anion Gap 31 H Blood Urea Nitrogen 32 H Creatinine 5.19 #H Glucose Level 164 Lactic Acid Level 15.2 *H 15.9 *H Calcium Level 7.6 L Phosphorus Level 10.8 H Magnesium Level 1.9 Random Vancomycin Level 16.8 Digoxin Level 0.8 L Medications Medications Current Medications Morphine Sulfate (morphine) 3 mg Q4H PRN IV PAIN; Start 08/31/16 at 01:00 Ondansetron HCl (Zofran Inj) 4 mg Q6H PRN IV NAUSEA AND/OR VOMITING Last administered on 09/18/16t 12:37; Admin Dose 4 MG; Start 08/31/16 at 02:00 Morphine Sulfate 2 mg 2 mg Q4H PRN IV PAIN LEVEL 7-10 Last administered on 21:27; Admin Dose 2 MG; Start 08/31/16 at 02:00 Propofol (Diprivan) 100 ml @ 4.695 mls/ hr Q12H IV Last administered on 05:03; Admin Dose 23.475 MLS/HR; Start 09/07/16 at 13:30 IV Flush (NS 10 ml) 10 ml PRN PRN IV IV PROTOCOL; Start 09/08/16 at 17:00 Potassium Chloride (Potassium Chloride Pwd/Soln) 20 meq BID NGT Last administered on 09/25/16 22:06; Admin Dose 20 MEQ; Start 09/11/16 at 21:00; Status Future Hold Atorvastatin Calcium (Lipitor) 10 mg QHS NGT Last administered on 09/25/16 22: 06; Admin Dose 10 MG; Start 09/11/16 at 20:06; Status Future Hold Famotidine (Pepcid) 20 mg BID NGT Last administered on 09/25/16 22:06; Admin Dose 20 MG; Start 09/11/16 at 20:06; Status Future Hold Ferrous Sulfate (Feosol Liquid Cup) 300 mg DAILY NGT Last administered on 08:19; Admin Dose 300 MG; Start 09/12/16 at 09:00; Status Future Hold Folic Acid (Folic Acid) 1 mg DAILY NGT Last administered on 09/25/16 08:19; Admin Dose 1 MG; Start 09/11/16 at 20:10; Status Future Hold Losartan Potassium (Cozaar) 50 mg BID NGT ; Start 09/11/16 at 20:10; Status Future Hold Multivitamins Therapeutic (Theragran) 1 tab DAILY NGT Last administered on 08:55; Admin Dose 1 TAB; Start 09/11/16 at 20:11; Status Future Hold Thiamine HCl (Vitamin B1) 100 mg DAILY NGT Last administered on 09/25/16 08:19 ; Admin Dose 100 MG; Start 09/11/16 at 20:11; Status Future Hold Bisacodyl (Dulcolax Supp) 10 mg DAILY PRN [place] CONSTIPATION Last administered on 09/21/16 15:18; Admin Dose 10 MG; Start 09/14/16 at 09:00 Diltiazem HCl (Cardizem) 60 mg QID NGT Last administered on 09/25/16 22:06; Admin Dose 60 MG; Start 09/16/16 at 13:00 Apixaban (Eliquis) 2.5 mg BID PO Last administered on 09/24/16 08:25; Admin Dose 2.5 MG; Start 09/20/16 at 21:00; Status Future Hold Loperamide HCl (Imodium Cap) 2 mg QID PRN PO DIARRHEA Last administered on 16:00; Admin Dose 2 MG; Start 09/22/16 at 10:00 Lactulose (Enulose) 60 gm Q6 NGT Last administered on 09/25/16 17:01; Admin Dose 60 GM; Start 09/23/16 at 12:00; Status Future Hold Acetaminophen (Tylenol Liquid) 650 mg Q4H PRN NGT PAIN AND OR ELEVATED TEMP Last administered on 09/25/16 09:57; Admin Dose 650 MG; Start 09/24/16 at 08:00 Furosemide 40 mg 40 mg DAILY IV Last administered on 09/25/16 08:19; Admin Dose 40 MG; Start 09/24/16 at 10:30 Pantoprazole 80 mg/Sodium Chloride 100 ml @ 10 mls/hr Q10H IV Last administered on 09/27/16 08:54; Admin Dose 10 MLS/HR; Start 09/26/16 at 00:00 Vasopressin 60 unit/Dextrose 60 ml @ 0 mls/hr TITRATE IV Last administered on 23:35; Admin Dose 2.4 MLS/HR; Start 09/26/16 at 09:00 Cefepime HCl 50 ml @ 100 mls/hr Q24H IVPB Last administered on 09/27/16 10:26 ; Admin Dose 100 MLS/HR; Start 09/27/16 at 10:00 Levofloxacin/ Dextrose 150 ml @ 100 mls/hr Q48H IVPB Last administered on 12:29; Admin Dose 100 MLS/HR; Start 09/26/16 at 13:00 Octreotide Acetate 500 mcg/ Sodium Chloride 50 ml @ 2.5 mls/hr Q20H IV Last administered on 09/27/16 08:19; Admin Dose 2.5 MLS/HR; Start 09/26/16 at 13:30 Epinephrine/ Dextrose (EPINEPHrine/D5W) 250 ml @ 3.75 mls/hr TITRATE IV ; Start 09/26/16 at 18:30 Al Hydrox/Mg Hydrox/ Simethicone 30 ml 30 ml Q2H NGT Last administered on 12:22; Admin Dose 30 ML; Start 09/26/16 at 22:00 Midazolam HCl 50 ml @ 1 mls/hr TITRATE IV Last administered on 09/27/16 08:55; Admin Dose 6 MLS/HR; Start 09/27/16 at 01:00 Phenylephrine HCl 160 mg/Dextrose 500 ml @ 18.75 mls/ hr TITRATE IV Last administered on 09/27/16 12:00; Admin Dose 18.75 MLS/HR; Start 09/27/16 at 06:00 Norepinephrine/ Dextrose (Levophed/D5W) 250 ml @ 0.46 mls/hr TITRATE IV Last administered on 09/27/16 11:04; Admin Dose 14.06 MLS/HR; Start 09/27/16 at 06:00 Hydrocortisone 100 mg 100 mg Q8 IV Last administered on 09/27/16 09:12; Admin Dose 100 MG; Start 09/27/16 at 08:30 Vancomycin HCl 250 ml @ 125 mls/hr 14 IVPB ; Start 09/27/16 at 14:00; Stop at 20:00 Sodium Bicarbonate/ Sodium Chloride (Na Bicarb/NS) 1,000 ml @ 75 mls/hr [id number] IV ; Start 09/27/16 at 13:00 CAYLA STOCKTON MD Sep 27, 2016 14:18
--- NOTE | 2016-09-27 15:31 | EN ---
Date/Time of Note Date/Time of Note DATE: 09/27/16 TIME: 15:29 Event Note Medicine Medicine Event Note Asked by nursing staff to pronounce patient. In asystole; no palpable pulse; no cardiac rhythm; pupil fixed and dilated. Patient pronounced at 15:30. Family at bedside. JEANETTE DUVAL MD Sep 27, 2016 15:31
--- NOTE | 2016-09-27 15:31 | CONS ---
Date/Time of Note Date/Time of Note DATE: 09/27/16 TIME: 15:30 Assessment/Plan Assessment/Plan Chief Complaint/Hosp Course No acute changes. Patient is intubated obtunded on multiple pressors Vital signs temperature 97.8 pulse 97 respirations 27 blood pressure 106/93 saturation 92 on vent WBC 35 H&H 12.6 and 40.8 platelets 105 neutrophils 87.9 BN 32 creatinine 5.19 lactic acid 15.9 Microbiology blood culture on admission grew coag negative staph species urine culture negative sputum culture growing gram-negative rods Indwelling's endotracheal tube NG tube PICC line Palumbo catheter Chest x-ray this morning revealed increased congestion Antimicrobials: Vancomycin cefepime Levaquin Physical examination: Chronically ill-appearing, morbidly obese well-developed middle-aged man. Head atraumatic, normocephalic. Sclera nonicteric. Neck is obese. Chest rise symmetrical, breath sounds diminished basis. Heart S1-S2, tachycardic irregular. Abdomen distended. Bowel tones absent. Extremities cyanotic. Assessment: 1. Shock with multisystem organ failure 2. Respiratory failure possible pneumonia 3. Hematuria 4. Acute renal failure 5. Acute encephalopathy 6. Alcoholic liver disease secondary to alcohol abuse Plan: Doing poorly, continue antibiotics, follow recommendations of consultants , not a candidate for hemodialysis secondary to hemodynamic instability. Prognosis poor. Patient is DNR status Discussed with staff Problems: Consultation Date/Type/Reason Admit Date/Time Aug 30, 2016 at 23:34 Initial Consult Date 09/24/16 Type of Consultation: ID Referring Provider: ERIK MORTON Exam/Review of Systems Vital Signs Vitals Vital Signs Date Time Temp Pulse Resp B/P Pulse Ox O2 Delivery O2 Flow Rate FiO2 09/27/16 12:00 107 09/27/16 10:00 27 132/101 92 09/27/16 08:00 97.8 09/27/16 08:00 100 09/27/16 07:30 Mechanical Ventilator Intake and Output 09/26/16 09/26/16 09/27/16 15:00 23:00 07:00 Intake Total 4746.84 ml 3460.61 ml 3723.30 ml Output Total 1200 ml 905 ml 160 ml Balance 3546.84 ml 2555.61 ml 3563.30 ml Results Result Diagram: 09/27/16 1200 09/27/16 0452 Results 24 hrs Laboratory Tests Test 09/26/16 17:25 09/26/16 19:40 09/26/16 23:47 09/27/16 01:28 Lactic Acid Level 11.9 *H 14.1 *H Hemoglobin 15.9 Hematocrit 52.3 H Blood Gas Specimen Source Blood arterial Arterial Blood Date Drawn 09/26/2016 11:55:38 AM Arterial Blood pH (Temp corrected) 7.020 *L Arterial Blood pCO2 (Temp correct) 34.0 L Arterial Blood pO2 (Temp corrected) 224.4 H Arterial Blood HCO3 8.6 *L Arterial Blood Base Excess -21.6 L Arterial Blood Oxygen Saturation 99.4 H Dilshad Test ACCEPTAB Arterial Blood Gas Puncture Site Right Radial Arterial Blood Carboxyhemoglobin 0.5 Arterial Blood Methemoglobin 0.5 Blood Gas A-a O2 Differential 454.6 H Oxyhemoglobin Percent 98.4 Total Hemoglobin 15.4 Blood Gas Temperature 37.0 Blood Gas Respiration Rate 20.0 Blood Gas Actual Respiration Rate 32 Blood Gas Modality VENT - AC FiO2 100.0 Blood Gas Tidal Volume 550.0 Blood Gas Low PEEP Setting 8.0 Blood Gas Critical Value Read Back K CHAPIN RN Blood Gas Notified Whom UP Blood Gas Notified Time 09/27/2016 12:08:19 AM Test 09/27/16 04:52 09/27/16 08:12 09/27/16 12:00 White Blood Count 35.0 #H Red Blood Count 4.54 #L Hemoglobin 13.7 L 12.6 L Hematocrit 43.6 40.8 L Mean Corpuscular Volume 96.0 Mean Corpuscular Hemoglobin 30.2 Mean Corpuscular Hemoglobin Concent 31.4 L Red Cell Distribution Width 15.2 H Platelet Count 105 #L Mean Platelet Volume 13.4 H Neutrophils % 87.9 H Lymphocytes % 5.9 L Monocytes % 4.8 Eosinophils % 0.0 Basophils % 0.1 Nucleated Red Blood Cells % 0.1 H Neutrophils # 30.8 H Lymphocytes # 2.1 Monocytes # 1.7 H Eosinophils # 0.0 Basophils # 0.1 Nucleated Red Blood Cells # 0.0 Sodium Level 128 #L Potassium Level 4.4 Chloride Level 89 #L Carbon Dioxide Level 12 L Anion Gap 31 H Blood Urea Nitrogen 32 H Creatinine 5.19 #H Glucose Level 164 Lactic Acid Level 15.2 *H 15.9 *H Calcium Level 7.6 L Phosphorus Level 10.8 H Magnesium Level 1.9 Random Vancomycin Level 16.8 Digoxin Level 0.8 L Medications Medications Current Medications Morphine Sulfate (morphine) 3 mg Q4H PRN IV PAIN; Start 08/31/16 at 01:00 Ondansetron HCl (Zofran Inj) 4 mg Q6H PRN IV NAUSEA AND/OR VOMITING Last administered on 09/18/16 12:37; Admin Dose 4 MG; Start 08/31/16 at 02:00 Morphine Sulfate 2 mg 2 mg Q4H PRN IV PAIN LEVEL 7-10 Last administered on 21:27; Admin Dose 2 MG; Start 08/31/16 at 02:00 Propofol (Diprivan) 100 ml @ 4.695 mls/ hr Q12H IV Last administered on 05:03; Admin Dose 23.475 MLS/HR; Start 09/07/16 at 13:30 IV Flush (NS 10 ml) 10 ml PRN PRN IV IV PROTOCOL; Start 09/08/16 at 17:00 Potassium Chloride (Potassium Chloride Pwd/Soln) 20 meq BID NGT Last administered on 09/25/16 22:06; Admin Dose 20 MEQ; Start 09/11/16 at 21:00; Status Future Hold Atorvastatin Calcium (Lipitor) 10 mg QHS NGT Last administered on 09/25/16 22: 06; Admin Dose 10 MG; Start 09/11/16 at 20:06; Status Future Hold Famotidine (Pepcid) 20 mg BID NGT Last administered on 09/25/16 22:06; Admin Dose 20 MG; Start 09/11/16 at 20:06; Status Future Hold Ferrous Sulfate (Feosol Liquid Cup) 300 mg DAILY NGT Last administered on 08:19; Admin Dose 300 MG; Start 09/12/16 at 09:00; Status Future Hold Folic Acid (Folic Acid) 1 mg DAILY NGT Last administered on 09/25/16 08:19; Admin Dose 1 MG; Start 09/11/16 at 20:10; Status Future Hold Losartan Potassium (Cozaar) 50 mg BID NGT ; Start 09/11/16 at 20:10; Status Future Hold Multivitamins Therapeutic (Theragran) 1 tab DAILY NGT Last administered on 08:55; Admin Dose 1 TAB; Start 09/11/16 at 20:11; Status Future Hold Thiamine HCl (Vitamin B1) 100 mg DAILY NGT Last administered on 09/25/16 08:19 ; Admin Dose 100 MG; Start 09/11/16 at 20:11; Status Future Hold Bisacodyl (Dulcolax Supp) 10 mg DAILY PRN [place] CONSTIPATION Last administered on 09/21/16 15:18; Admin Dose 10 MG; Start 09/14/16 at 09:00 Diltiazem HCl (Cardizem) 60 mg QID NGT Last administered on 09/25/16 22:06; Admin Dose 60 MG; Start 09/16/16 at 13:00 Apixaban (Eliquis) 2.5 mg BID PO Last administered on 09/24/16 08:25; Admin Dose 2.5 MG; Start 09/20/16 at 21:00; Status Future Hold Loperamide HCl (Imodium Cap) 2 mg QID PRN PO DIARRHEA Last administered on 16:00; Admin Dose 2 MG; Start 09/22/16 at 10:00 Lactulose (Enulose) 60 gm Q6 NGT Last administered on 09/25/16 17:01; Admin Dose 60 GM; Start 09/23/16 at 12:00; Status Future Hold Acetaminophen (Tylenol Liquid) 650 mg Q4H PRN NGT PAIN AND OR ELEVATED TEMP Last administered on 09/25/16 09:57; Admin Dose 650 MG; Start 09/24/16 at 08:00 Furosemide 40 mg 40 mg DAILY IV Last administered on 09/25/16 08:19; Admin Dose 40 MG; Start 09/24/16 at 10:30 Pantoprazole 80 mg/Sodium Chloride 100 ml @ 10 mls/hr Q10H IV Last administered on 09/27/16 08:54; Admin Dose 10 MLS/HR; Start 09/26/16 at 00:00 Vasopressin 60 unit/Dextrose 60 ml @ 0 mls/hr TITRATE IV Last administered on 23:35; Admin Dose 2.4 MLS/HR; Start 09/26/16 at 09:00 Cefepime HCl 50 ml @ 100 mls/hr Q24H IVPB Last administered on 09/27/16 10:26 ; Admin Dose 100 MLS/HR; Start 09/27/16 at 10:00 Levofloxacin/ Dextrose 150 ml @ 100 mls/hr Q48H IVPB Last administered on 12:29; Admin Dose 100 MLS/HR; Start 09/26/16 at 13:00 Octreotide Acetate 500 mcg/ Sodium Chloride 50 ml @ 2.5 mls/hr Q20H IV Last administered on 09/27/16 08:19; Admin Dose 2.5 MLS/HR; Start 09/26/16 at 13:30 Epinephrine/ Dextrose (EPINEPHrine/D5W) 250 ml @ 3.75 mls/hr TITRATE IV ; Start 09/26/16 at 18:30 Al Hydrox/Mg Hydrox/ Simethicone 30 ml 30 ml Q2H NGT Last administered on 14:25; Admin Dose 30 ML; Start 09/26/16 at 22:00 Midazolam HCl 50 ml @ 1 mls/hr TITRATE IV Last administered on 09/27/16 08:55; Admin Dose 6 MLS/HR; Start 09/27/16 at 01:00 Phenylephrine HCl 160 mg/Dextrose 500 ml @ 18.75 mls/ hr TITRATE IV Last administered on 09/27/16 12:00; Admin Dose 18.75 MLS/HR; Start 09/27/16 at 06:00 Norepinephrine/ Dextrose (Levophed/D5W) 250 ml @ 0.46 mls/hr TITRATE IV Last administered on 09/27/16 11:04; Admin Dose 14.06 MLS/HR; Start 09/27/16 at 06:00 Hydrocortisone 100 mg 100 mg Q8 IV Last administered on 09/27/16 14:24; Admin Dose 100 MG; Start 09/27/16 at 08:30 Vancomycin HCl 250 ml @ 125 mls/hr 14 IVPB Last administered on 09/27/16 14:24 ; Admin Dose 125 MLS/HR; Start 09/27/16 at 14:00; Stop 09/27/16 at 20:00 Sodium Bicarbonate/ Sodium Chloride (Na Bicarb/NS) 1,000 ml @ 75 mls/hr [id number] IV ; Start 09/27/16 at 15:00 MINH ROBERTS NP Sep 27, 2016 15:31
--- NOTE | 2016-09-27 16:12 | DES ---
Date/Time of Note Date/Time of Note DATE: 09/27/16 TIME: 15:59 Discharge/ Summary Admission/Discharge Info Admit Date/Time Aug 30, 2016 at 23:34 Discharge Date/Time Final Diagnosis 1. Acute respiratory failure - now in septic shock, sec to possible res source. Acute on chronic. Hypoxic and hypercapnic. 2. Essential hypertension. 3. Chronic obstructive pulmonary disease. 4. Chest pain. 5. Atrial fibrillation 6. Alcoholic liver disease 7. Thrombocytopenia. 8. Alcohol abuse. 10. Possible aspiration pneumonia 11. Acute on chronic CHF exacerbation. 12. Fluid, electrolytes and nutrition. 13. ROSSANA in the setting of SHOCK, ATN Preliminary Cause of 1. Asystole - minutes 2. Respiratory failure - days 3. Septic shock with multiorgan failure -days Hospital Course 56-year-old morbidly obese male with BMI of 54, with history of hypertension, decompensated alcoholic cirrhosis, anemia who was transferred from [facility] on August 31, 2069 after he presented there with chest pain. pain was left sided, described as pressure-like with no associated N/V, SOB or diaphoresis. He said he has been taking eliquis for "blood clot in my heart" for the past 6 months. He also said he fell forward 2 days prior to this admission "because of my weight". he c/o back pain after the fall. Denied palpitations, lightheadedness. Denied hitting his head. He was seen by multiple specialists during this hospital stay including pulmonary team, cardiology team, infectious disease team, renal team. Unfortunately he developed acute respiratory failure, Acute on chronic. Hypoxic and hypercapnic. Pt had to be intubated on 09/07/2016 because of worsening respiratory distress. Failed CPAP trial while in the intensive care unit. Eventually he went into septic shock, requiring 3 pressor support. During this time he also developed hematuria and upper GI bleed. He underwent emergent EGD on September 26, 2016 and bleeding ulcers were found esophageal and gastric which were sclerosed. Unfortunately patient also went into worsening renal failure and eventually multiorgan failure. Family did make the patient DNR and DNI on September 26, 2016. Patient also developed worsening metabolic lactic acidosis as well despite aggressive IV fluid hydration with bicarbonate. Unfortunately the patient went into asystole and at 15: 30 on September 27, 2016. No acute changes. Patient is intubated obtunded on multiple pressors Vital signs temperature 97.8 pulse 97 respirations 27 blood pressure 106/93 saturation 92 on vent WBC 35 H&H 12.6 and 40.8 platelets 105 neutrophils 87.9 BN 32 creatinine 5.19 lactic acid 15.9 Microbiology blood culture on admission grew coag negative staph species urine culture negative sputum culture growing gram-negative rods Indwelling's endotracheal tube NG tube PICC line Palumbo catheter Chest x-ray this morning revealed increased congestion Antimicrobials: Vancomycin cefepime Levaquin Physical examination: Chronically ill-appearing, morbidly obese well-developed middle-aged man. Head atraumatic, normocephalic. Sclera nonicteric. Neck is obese. Chest rise symmetrical, breath sounds diminished basis. Heart S1-S2, tachycardic irregular. Abdomen distended. Bowel tones absent. Extremities cyanotic. Assessment: 1. Shock with multisystem organ failure 2. Respiratory failure possible pneumonia 3. Hematuria 4. Acute renal failure 5. Acute encephalopathy 6. Alcoholic liver disease secondary to alcohol abuse Plan: Doing poorly, continue antibiotics, follow recommendations of consultants , not a candidate for hemodialysis secondary to hemodynamic instability. Prognosis poor. Patient is DNR status Discussed with staff Pending Labs/Cultures Laboratory Tests Test 09/26/16 17:25 09/26/16 19:40 09/26/16 23:47 09/27/16 01:28 Lactic Acid Level 11.9mmol/L (0.5-2.2) 14.1mmol/L (0.5-2.2) Hemoglobin 15.9g/dl (14.0-18.0) Hematocrit 52.3% (42.0-52.0) Blood Gas Specimen Source Blood arterial Arterial Blood Date Drawn 09/26/2016 11:55:38 AM Arterial Blood pH (Temp corrected) 7.020 (7.350-7.450) Arterial Blood pCO2 (Temp correct) 34.0mmhg (35-45) Arterial Blood pO2 (Temp corrected) 224.4mmHG (80-100.0) Arterial Blood HCO3 8.6mmol/L (22.0-26.0) Arterial Blood Base Excess -21.6mmol/L (-3.0-3) Arterial Blood Oxygen Saturation 99.4mmHG (95.0-98.0) Dilshad Test ACCEPTAB Arterial Blood Gas Puncture Site Right Radial Arterial Blood Carboxyhemoglobin 0.5% (0.0-3.0) Arterial Blood Methemoglobin 0.5% (0.0-1.5) Blood Gas A-a O2 Differential 454.6mmHg (7.0-24.0) Oxyhemoglobin Percent 98.4% (93.0-99.0) Total Hemoglobin 15.4g/dl (12.0-18.0) Blood Gas Temperature 37.0C Blood Gas Respiration Rate 20.0 Blood Gas Actual Respiration Rate 32 Blood Gas Modality VENT - AC FiO2 100.0% Blood Gas Tidal Volume 550.0mL Blood Gas Low PEEP Setting 8.0cmH2O Blood Gas Critical Value Read Back K IHRIG RN Blood Gas Notified Whom UP Blood Gas Notified Time 09/27/2016 12:08:19 AM Test 09/27/16 04:52 09/27/16 08:12 09/27/16 12:00 White Blood Count 35.010^3/ul (4.8-10.8) Red Blood Count 4.5410^6/ul (4.70-6.10) Hemoglobin 13.7g/dl (14.0-18.0) 12.6g/dl (14.0-18.0) Hematocrit 43.6% (42.0-52.0) 40.8% (42.0-52.0) Mean Corpuscular Volume 96.0fl (82.0-101.0) Mean Corpuscular Hemoglobin 30.2pg (29.0-33.0) Mean Corpuscular Hemoglobin Concent 31.4g/dl (32.0-37.0) Red Cell Distribution Width 15.2% (11.5-14.5) Platelet Count 04849^3/UL (140-415) Mean Platelet Volume 13.4fl (7.4-10.4) Neutrophils % 87.9% (39.0-77.0) Lymphocytes % 5.9% (15.0-51.0) Monocytes % 4.8% (0.0-11.0) Eosinophils % 0.0% (0.0-7.0) Basophils % 0.1% (0.0-2.0) Nucleated Red Blood Cells % 0.1/100WBC (0.0-0.0) Neutrophils # 30.810^3/ul (1.6-7.5) Lymphocytes # 2.110^3/ul (0.8-2.9) Monocytes # 1.710^3/ul (0.3-0.9) Eosinophils # 0.010^3/ul (0.0-0.5) Basophils # 0.110^3/ul (0.0-0.1) Nucleated Red Blood Cells # 0.010^3/ul (0.0-0.0) Sodium Level 128mmol/L (135-144) Potassium Level 4.4mmol/L (3.5-5.1) Chloride Level 89mmol/L (97-110) Carbon Dioxide Level 12mmol/L (21-31) Anion Gap 31 (8-16) Blood Urea Nitrogen 32mg/dl (7-20) Creatinine 5.19mg/dl (0.61-1.24) Glucose Level 164mg/dl (70-220) Lactic Acid Level 15.2mmol/L (0.5-2.2) 15.9mmol/L (0.5-2.2) Calcium Level 7.6mg/dl (8.4-10.2) Phosphorus Level 10.8mg/dl (2.5-4.9) Magnesium Level 1.9mg/dl (1.7-2.5) Random Vancomycin Level 16.8ug/ml Digoxin Level 0.8ng/ml (1.0-2.0) SONI SUTTON Sep 27, 2016 16:12
== END 2016-09-27 15:30 | disposition expired | DRG 207 ==
LOC: MS4 23:34 → ICU 09-07 13:20
PROVIDERS: ADMIT Internal Medicine; ATTEND Internal Medicine
PROC: 5A1955Z Respiratory Ventilation, Greater than 96 Consecutive Hours (ICD-10-PCS; principal; 2016-09-07)
PROC: 5A09357 Assistance with Respiratory Ventilation, Less than 24 Consecutive Hours, Continuous Positive Airway Pressure (ICD-10-PCS; 2016-09-07)
PROC: 0BH17EZ Insertion of Endotracheal Airway into Trachea, Via Natural or Artificial Opening (ICD-10-PCS; 2016-09-07)
PROC: 02HV33Z Insertion of Infusion Device into Superior Vena Cava, Percutaneous Approach (ICD-10-PCS; 2016-09-08)
PROC: 0DB58ZX Excision of Esophagus, Via Natural or Artificial Opening Endoscopic, Diagnostic (ICD-10-PCS; 2016-09-26)
PROC: 0DB98ZX Excision of Duodenum, Via Natural or Artificial Opening Endoscopic, Diagnostic (ICD-10-PCS; 2016-09-26)
PROC: 0W3P8ZZ Control Bleeding in Gastrointestinal Tract, Via Natural or Artificial Opening Endoscopic (ICD-10-PCS; 2016-09-26)
DX: J44.1 Chronic obstructive pulmonary disease with (acute) exacerbation (principal); R65.21 Severe sepsis with septic shock; N17.0 Acute kidney failure with tubular necrosis; J69.0 Pneumonitis due to inhalation of food and vomit; A41.9 Sepsis, unspecified organism; I50.33 Acute on chronic diastolic (congestive) heart failure; J96.21 Acute and chronic respiratory failure with hypoxia; K25.4 Chronic or unspecified gastric ulcer with hemorrhage; K70.30 Alcoholic cirrhosis of liver without ascites; J96.22 Acute and chronic respiratory failure with hypercapnia; E87.1 Hypo-osmolality and hyponatremia; J98.11 Atelectasis; E87.4 Mixed disorder of acid-base balance; E66.2 Morbid (severe) obesity with alveolar hypoventilation; Z68.42 Body mass index [BMI] 45.0-49.9, adult; K26.9 Duodenal ulcer, unspecified as acute or chronic, without hemorrhage or perforation; D69.6 Thrombocytopenia, unspecified; R07.9 Chest pain, unspecified; I10 Essential (primary) hypertension; T17.990A Other foreign object in respiratory tract, part unspecified in causing asphyxiation, initial encounter; M54.9 Dorsalgia, unspecified; E87.6 Hypokalemia; E83.42 Hypomagnesemia; I48.2 Chronic atrial fibrillation; X58.XXXA Exposure to other specified factors, initial encounter; Y92.230 Patient room in hospital as the place of occurrence of the external cause; K70.40 Alcoholic hepatic failure without coma; G47.33 Obstructive sleep apnea (adult) (pediatric); R31.0 Gross hematuria; F10.20 Alcohol dependence, uncomplicated; D64.9 Anemia, unspecified; K29.70 Gastritis, unspecified, without bleeding; K20.9 Esophagitis, unspecified; Z66 Do not resuscitate
CPT/HCPCS: 31500; 36569; 36600; 71010; 71020; 74000; 76937; 80048; 80053; 80061; 80162; 80202; 81001; 82140; 82550; 82553; 82803; 82962; 83036; 83605; 83735; 83880; 84100; 84484; 85014; 85018; 85025; 85610; 85730; 86704; 86706; 86709; 86803; 87040; 87070; 87075; 87086; 87340; 88305; 88313; 89220; 93306; 94002; 94003; 94640; 94660; 94664; 94770; 97116; 97161; J1940; C1769; C9113; J0131; J0171; J0692; J1644; J1720; J1956; J2060; J2185; J2270; J2354; J2370; J2405; J2543; J2930; J3370; J3475; J3480; J7030; J7040; J7042; J7050; J7060; J7070; J7999; P9047